=== PATIENT | male | born 1950 | race Caucasian/White ===

== ENCOUNTER 2023-10-07 13:27 | Inpatient (IN) ==
--- NOTE | 2023-10-07 14:13 | Emergency Department Note ---
Impression & Plan Fever, Pancytopenia, Hyponatremia ED Provider Note NAME: DAT WESTBROOK AGE: 73 SEX: M : 1950 ARRIVES VIA: Walk-In INFORMANT: Patient, ED PROVIDER(S): Ascencion Corbin MD CHIEF COMPLAINT: Fatigue, outpatient referral, abnormal lab work, dyspnea on exertion MEDICAL DECISION MAKING: Patient's blood work showed leukopenia anemia and thrombocytopenia. Per review the patient's [facility] records the patient has had approximately 5 point drop in his hemoglobin since May. Patient denies any easy bruising or bleeding. Sodium 127. The patient does have a transaminitis but normal bilirubin. LDH is elevated. Pro-Julian negative. Urinalysis negative for blood or infection patient is Lyme's positive but Lyme IgG not IgM. Babesia and Anaplasma smears are negative. Bio fire negative. Patient's chest x-ray does not show obvious evidence of pneumonia. I did speak with the on-call oncologist Dr. Epstein who stated that he would like the patient to be admitted for further evaluation given the patient's fevers. I did Siuta the on-call hospital service Dr. Hodge and the patient was admitted. Discussion w/ other healthcare providers: Dr. Epstein oncology Dr. Hodge inpatient medicine service Prior /Outside records reviewed: None Differential diagnosis: Infection, dehydration, metabolic abnormality, hypo/hyperglycemia, electrolyte imbalance, anemia, UTI, pneumonia, thyroid dysfunction among others were considered. Diagnostics, as interpreted by me: ECG: Likely sinus rhythm as the patient does appear to have P waves noted. Ventricular rate of 74 with normal QRS and normal axis no ST elevations T wave flattening in V2. Cardiac monitoring: An order was placed for continuous cardiac monitoring. The monitor shows a rate of 75 with regular rhythm. Patient was placed on pulse oximetry Medical decision rules: None Imaging studies: I informally interpreted the patient's chest x-ray does not show obvious pneumonia or pneumothorax with formal report to follow. HPI: Patient presents due to concern for abnormal blood work. Patient reports that he did have blood work completed yesterday which showed lower hemoglobin platelets and LFTs. Patient states that he had insidious symptoms over the last 2 to 3 weeks with associated fever. Last fever noted today at one 3.1 which has improved with Tylenol. Patient has had nonproductive cough. Patient is a former smoker rely smoking 1990. Patient is currently on Keytruda treatments beginning in March every 3 weeks and has received a total of 9 treatments and does receive care with oncology [facility] through Dr. Epstein. Patient denies any chest pains but has been more fatigable with associated shortness of breath. at bedside reports that he did have a CT chest abdomen pelvis completed within the last week that this was reportedly unremarkable. No history of metastases. PAST MEDICAL HISTORY: See Below PAST SURGICAL HISTORY: See Below SOCIAL HISTORY: See Below HOME MEDICATIONS: See Below ALLERGIES: See Below VITALS: See Below PHYSICAL EXAMINATION: GENERAL: NAD, non-toxic. EYE EXAM: Normal conjunctiva. PERRL, no anisocoria and EOM's grossly intact w/o pain. OROPHARYNX: Moist mucus membranes, grossly normal dentition. NECK: Trachea midline, no stridor. Supple, no nuchal rigidity, no adenopathy, non-tender. No signs of meningismus. FROM of the neck with good chin to chest and neck extension. LUNGS: Clear to auscultation. Normal chest wall mechanics. HEART: NSR, no MRG. ABDOMEN: Abdomen soft, non-tender, no masses, no rebound or guarding. BACK: No CVA TTP. SKIN: No rashes and no bruising. UPPER EXTREMITIES: Upper extremities are grossly normal. LOWER EXTREMITIES: Grossly normal, no edema. NEURO EXAM: A&O x3, cranial nerves II-XII grossly intact, normal speech, moves all 4 extremities. Past Med/Surg History Medical History History of Lyme disease SUMMER 2021 Pre-diabetes Acid reflux Atrial flutter DX DECEMBER 2020 Hypothyroid Hyperlipidemia Hypertension Surgical History History of left cataract extraction History of lumbar spinal fusion History of endoscopy History of colonoscopy Family History Father Family history of diabetes mellitus Mother Family history of diabetes mellitus Other Family history of colon cancer in mother Social History Smoking Status: Former smoker Second Hand Exposure: No; Do You Dip or Chew Tobacco: No; Hx Alcohol Use: Yes Alcohol type: beer Hx Substance Use: No Preferred Language: Micronesian Communication Ability: Effective Bench Assembler Required: No Beliefs That Will Affect Care: None Current Living Situation: Spouse Current Living Situation Comment: PETS Feels Safe at Home: Yes Assistive Devices: Glasses Allergies Allergies Allergy/AdvReac Type Severity Reaction Status Date / Time Sulfa (Sulfonamide Allergy Unknown Unknown Unverified 10/07/23 17:12 Antibiotics) Home Meds Home Medications Medication Instructions Recorded Confirmed atorvastatin 80 mg tablet (Lipitor) 80 mg PO HS 01/01/21 10/07/23 levothyroxine 88 mcg tablet 88 mcg PO QAM 01/01/21 10/07/23 (Synthroid) loratadine 10 mg tablet (Claritin) 10 mg PO QAM 01/01/21 10/07/23 apixaban 5 mg tablet (Eliquis) 5 mg PO BID 06/20/22 10/07/23 ipratropium bromide 21 mcg (0.03 2 spray intranasal BID 06/20/22 10/07/23 %) nasal spray metoprolol succinate 25 mg 25 mg PO QAM 06/20/22 10/07/23 tablet,extended release 24 hr dizqbradkjxs-jjrjieyb-qkvpot tablet 1 tab PO QAM 06/20/22 10/07/23 omega-3 fatty acids 1,000 mg PO TID 06/20/22 10/07/23 omeprazole magnesium 20 mg 20 mg PO QAM 06/20/22 10/07/23 tablet,delayed release (Prilosec OTC) psyllium 1 packet PO BID 06/20/22 10/07/23 acetaminophen 500 mg tablet 500 mg PO Q6H PRN PAIN OR FEVER 10/07/23 10/07/23 lisinopril 2.5 mg tablet 2.5 mg PO QPM 10/07/23 10/07/23 melatonin 3 mg tablet 3 mg PO HS PRN Insomnia 10/07/23 10/07/23 metformin 500 mg tablet,extended 1,000 mg PO QPM 10/07/23 10/07/23 release 24 hr Results & Data (ED) Vital Signs Vital Signs - 24 hr 10/07/23 13:41 10/07/23 14:39 10/07/23 14:47 Temperature 36.4 C L Temperature Source Skin Pulse Rate 90 74 Pulse Rate [Apical] 78 Respiratory Rate 18 19 Respiratory Effort / Characteristics Non-Labored Spontaneous Respiratory Depth Normal Blood Pressure 119/70 Blood Pressure [Right Arm] 108/69 Blood Pressure Mean 86 Blood Pressure Mean [Right Arm] 82 Blood Pressure Position [Right Arm] Lying Pulse Oximetry 95 98 Oxygen Delivery Method Room Air Room Air Sepsis Recent Fever Within 48 Hours No Sepsis New/Unexplained Change in Mental Status No Sepsis Action Taken by Nursing No Action Required 10/07/23 16:00 10/07/23 18:00 10/07/23 18:38 Temperature 38.0 C H Temperature Source Oral Pulse Rate 90 Pulse Rate [Apical] 81 93 H Respiratory Rate 22 20 Respiratory Effort / Characteristics Respiratory Depth Blood Pressure Blood Pressure [Right Arm] 128/75 129/73 Blood Pressure Mean Blood Pressure Mean [Right Arm] 92 91 Blood Pressure Position [Right Arm] Pulse Oximetry 96 100 Oxygen Delivery Method Room Air Room Air Sepsis Recent Fever Within 48 Hours Sepsis New/Unexplained Change in Mental Status Sepsis Action Taken by [facility] Medications Current Medication List: was personally reviewed by me Laboratory Data Attestation: I reviewed the patient's lab results. 10/07/23 14:30 10/07/23 14:30 Lab Results 10/07/23 10/07/23 Range/Units 14:30 18:43 WBC 4.13 L (4.8-10.8) K/ul RBC 3.19 L (4.70-6.10) M/uL Hgb 9.0 L (14.0-18.0) g/dl Hct 26.9 L (42.0-52.0) % MCV 84.3 (80.0-100.0) fL MCH 28.2 (25.0-34.0) pg MCHC 33.5 (32.0-36.0) g/dL RDW Std Deviation 45.1 (36.4-46.3) fL RDW Coeff of Keron 14.7 H (11.5-14.5) % Plt Count 44 L (130-400) K/uL MPV 12.8 H (9.4-12.4) fL Reticulocyte % (Auto) 1.72 (0.50-2.00) % Reticulocyte # 0.050 (0.020-0.100) 10^6/uL Absolute Nucleated RBC 0.06 (0.00-0.12) K/uL Nucleated RBC % (auto) 1.5 % Neutrophils % (Manual) 54 % Lymphocytes % (Manual) 10 % Reactive Lymphs % (Man) 30 % Monocytes % (Manual) 6 % Neutrophils # (Manual) 2.23 (1.40-6.50) K/uL Total Absolute Neuts 2.23 (1.4-6.5) K/uL Lymphocytes # (Manual) 0.41 L (1.2-3.4) K/uL Reactive Lymphs # 1.24 K/uL Total Abs Lymphocytes 1.65 (1.2-3.4) K/uL Monocytes # (Manual) 0.25 (0.11-0.59) K/uL Toxic Vacuolation 2+ Polychromasia 1+ Echinocytes 2+ PT 11.8 (9.0-12.0) Seconds INR 1.1 (0.9-1.1) APTT 37 H (21-31) Seconds PTT Ratio 1.3 Sodium 127 L (136-145) mmol/L Potassium 3.8 (3.5-5.1) mmol/L Chloride 97 L (98-107) mmol/L Carbon Dioxide 25 (21-32) mmol/L Anion Gap 5 (3-11) BUN 10 (6-23) mg/dl Creatinine 0.79 (0.6-1.4) mg/dl Est Cr Clr Drug Dosing 93.9 ml/min Est GFR ( Amer) 104.0 ml/min Est GFR (Non-Af Amer) 89.7 ml/min BUN/Creatinine Ratio 12.7 (10-20) Glucose 105 H (70-99(Fasting)) mg/dl Lactate 1.2 (0.4-2.0) mmol/L Calcium 8.8 (8.6-10.3) mg/dl Total Bilirubin 1.0 (0.2-1.0) mg/dl AST 102 H (13-39) U/L ALT 62 H (7-52) U/L Alkaline Phosphatase 116 H (34-104) U/L Lactate Dehydrogenase 758 H (86-244) U/L Total Protein 6.9 (6.0-8.3) gm/dl Albumin 3.2 L (3.4-5.0) gm/dl Globulin 3.7 (2.5-4.0) gm/dl Albumin/Globulin Ratio 0.9 (0.9-2) Procalcitonin 0.25 (0-0.5) ng/ml Adenovirus (PCR) Not Detected (NotDetected) Anaplasma Smear See Comment Babesia Smear See Comment B. pertussis DNA (PCR) Not Detected (NotDetected) B.parapertussis DNA PCR Not Detected (NotDetected) Lyme Disease Screen Positive H (Negative) Lyme Disease IgG Ab Positive H (Negative) Lyme Disease IgM Ab Negative (Negative) C. pneumoniae DNA (PCR) Not Detected (NotDetected) Coronavirus OC43 (PCR) Not Detected (NotDetected) Coronavirus HKU1 (PCR) Not Detected (NotDetected) Coronavirus 229E (PCR) Not Detected (NotDetected) SARS-CoV-2 (PCR) Not Detected (NotDetected) Coronavirus NL63 (PCR) Not Detected (NotDetected) Human Metapneumovir PCR Not Detected (NotDetected) Influenza Type A (PCR) Not Detected (NotDetected) Influenza Type B (PCR) Not Detected (NotDetected) M. pneumoniae (PCR) Not Detected (NotDetected) Parainfluenza 1 (PCR) Not Detected (NotDetected) Parainfluenza 2 (PCR) Not Detected (NotDetected) Parainfluenza 3 (PCR) Not Detected (NotDetected) Parainfluenza 4 (PCR) Not Detected (NotDetected) RSV (PCR) Not Detected (NotDetected) Entero/Rhino (PCR) Not Detected (NotDetected) Administered Medications Cefepime HCl 2,000 mg/ Syringe 20 mls @ 5 mls/min IV Q8H [facility]; Protocol Stop: 10/09/23 18:59 Last Admin: 10/07/23 19:56 Dose: 5 mls/min Documented By: CELSO Sodium Chloride (Nss) 1,000 mls @ 65 mls/hr IV .[id number] [facility] Stop: 10/08/23 10:23 Last Admin: 10/07/23 19:59 Dose: 65 mls/hr Documented By: CELSO Vancomycin HCl 2,250 mg/ (Sodium Chloride) 545 mls @ 200 mls/hr IV TODAY@1930 [facility] Stop: 10/07/23 22:14 Last Admin: 10/07/23 20:03 Dose: 200 mls/hr Documented By: CELSO Discontinued Medications Sodium Chloride (Nss) 500 mls @ 999 mls/hr IV .Q31M [facility] Stop: 10/07/23 15:00 Last Infusion: 10/07/23 15:34 Dose: Infused Documented By: Admin: 10/07/23 14:38 Dose: 999 mls/hr Documented By: CC Imaging Data Radiologist's Impression: Chest X-Ray 10/07/23 14:38 XR chest 1V portable HISTORY: cough, fever COMPARISON: Chest 01/01/2021. FINDINGS: No pneumothorax. No pleural effusions. Low lung volumes with mild elevation the right hemidiaphragm. This remains unchanged. There are few bibasilar linear densities suggestive of subsegmental atelectasis are scarring. This has progressed on the right. The heart remains mildly enlarged. No new focal lung consolidations to suggest a pneumonia. No evidence for pulmonary edema. A right jugular Port-A-Cath terminates at the distal SVC. IMPRESSION: 1. Low lung volumes with bibasilar linear densities. This favors subsegmental atelectasis. 2. Mild cardiomegaly. ACT 112: Negative or not required by law. Electronically signed by: Danilo Garcia M.D. 10/07/2023 4:[address] 10/07/23 18:34 Exam(s): CT CHEST Without Contrast EXAM: CT Chest Without Intravenous Contrast CLINICAL HISTORY: Rule out infection, pneumonia, cavitary pathology. TECHNIQUE: Axial computed tomography images of the chest without intravenous contrast. CTDI is 17.77 mGy and DLP is 658.57 mGy-cm. Automated exposure control was utilized for the study. A dose lowering technique was utilized adhering to the principles of ALARA. COMPARISON: Chest radiograph 10/07/2023 FINDINGS: Lungs: There is mild atelectasis without consolidation. No mass. Pleural space: Unremarkable. No pneumothorax. No significant effusion. Heart: Unremarkable. No cardiomegaly. No significant pericardial effusion. No significant coronary artery calcifications. Bones/joints: There are degenerative changes of the spine. No acute fracture. No dislocation. Soft tissues: Unremarkable. Vasculature: Mild atherosclerosis. No thoracic aortic aneurysm. Lymph nodes: Unremarkable. No enlarged lymph nodes. Upper abdomen: There is elevation of the right hemidiaphragm. IMPRESSION: There is mild atelectasis without consolidation. No cavitary lesion. Electronically signed by: Yessenia Lea MD 10/07/23 19:44 PM Discharge Plan Visit Data Chief Complaint: Recheck/Abnormal Lab/Rx Stated Complaint: ABN LABS, REF BY DOC ED Provider: Ascencion Corbin Discharge Problem: Fever, Pancytopenia, Hyponatremia Patient Disposition: Admitted As Inpatient Discharge Instructions Interventions: ED Discharge Assessment Last Done: 10/07/23 20:45 Discharge Problem: Fever Qualifiers: Fever type: due to other condition Qualified Code(s): R50.81 - Fever presenting with conditions classified elsewhere
[2023-10-07] MEDS: SODIUM CHLORIDE 0.9% 500 ML IV STA (14:38)
[2023-10-07 15:00] LABS: Appearance Urine Clear (Clear); Bilirubin Urine Negative (Negative); Blood Urine Negative (Negative); Color Urine Yellow; Glucose Urine UA Negative (Negative); Ketones Urine Negative (Negative); Leukocyte Esterase Urine Negative (Negative); Nitrite Urine Negative (Negative); Protein Urine Negative (Negative); Specific Gravity Urine 1.004 (1.000-1.030); Urobilinogen Urine Negative (Negative); pH Urine 6.5 (4.5-7.5)
[2023-10-07 15:11] LABS: Albumin Globulin Ratio 0.9 (0.9-2); Albumin Level 3.2 gm/dl (3.4-5.0); BUN Creatinine Ratio 12.7 (10-20); Calcium 8.8 mg/dl (8.6-10.3); Creatinine Clr Calc Pharmacy 93.9 ml/min; Est GFR (Non-African American) 89.7 ml/min; Globulin 3.7 gm/dl (2.5-4.0); Potassium 3.8 mmol/L (3.5-5.1); Total Protein 6.9 gm/dl (6.0-8.3)
[2023-10-07 15:28] LABS: INR 1.1 (0.9-1.1); Partial Thromboplastin Ratio 1.3; Partial Thromboplastin Time 37 Seconds (21-31); Prothrombin Time 11.8 Seconds (9.0-12.0)
[2023-10-07 15:46] LABS: Hematocrit (blood only) 26.9 % (42.0-52.0); Mean Corpuscular Hemoglobin 28.2 pg (25.0-34.0); Mean Corpuscular Hgb Conc 33.5 g/dL (32.0-36.0); Mean Corpuscular Volume 84.3 fL (80.0-100.0); Mean Platelet Volume 12.8 fL (9.4-12.4); Nucleated RBC # (auto) 0.06 K/uL (0.00-0.12); Nucleated RBC % (auto) 1.5 %; Platelet Count 44 K/uL (130-400); RDW Coefficient of Variation 14.7 % (11.5-14.5); RDW Standard Deviation 45.1 fL (36.4-46.3); Red Blood Count 3.19 M/uL (4.70-6.10); Reticulocyte % 1.72 % (0.50-2.00); White Blood Count 4.13 K/ul (4.8-10.8)
[2023-10-07 15:59] LABS: ALC (manual) 1.65 K/uL (1.2-3.4); ANC (manual) 2.23 K/uL (1.4-6.5); Echinocytes 2+; Lymphocytes # (manual) 0.41 K/uL (1.2-3.4); Lymphocytes % (manual) 10 %; Monocytes # (manual) 0.25 K/uL (0.11-0.59); Monocytes % (manual) 6 %; Neutrophils # (manual) 2.23 K/uL (1.40-6.50); Neutrophils % (manual) 54 %; Polychromasia 1+; Reactive Lymphocytes # (manual) 1.24 K/uL; Reactive Lymphocytes % (manual) 30 %; Toxic Vacuolation 2+
--- NOTE | 2023-10-07 16:14 | XRay Report ---
XR chest 1V portable HISTORY: cough, fever COMPARISON: Chest 01/01/2021. FINDINGS: No pneumothorax. No pleural effusions. Low lung volumes with mild elevation the right hemid iaphragm. This remains unchanged. There are few bibasilar linear densities suggestive of subsegmental atelectasis are scarring. This has progressed on the right. The heart remains mildly enlarged. No ne w focal lung consolidations to suggest a pneumonia. No evidence for pulmonary edema. A right jugular Port-A-Cath terminates at the distal SVC. IMPRESSION: 1. Low lung volumes with bibasilar linear densities. This favors subsegmental atelectasis. 2. Mild cardiomegaly. ACT 112: Negative or not required by law. Electronically signed by: Danilo Garcia M.D. 10/07/2023 4:13 PM
[2023-10-07 16:19] LABS: Lyme Screen Rflx Confirmation Positive (Negative)
--- NOTE | 2023-10-07 18:22 | History & Physical Report ---
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 Appetite and fluid in take at his baseline. History of Lyme disease in February 2022 per family, patient was treated. Admitting tickborne serology: Lyme IgG positive, Babesia and Anaplasma smear negative -follow DNA PCR At presentation: WBC 4.13, lactate WNL, procalcitonin negative, CXR with no acute finding. Outpatient blood culture drawn on 10/01 with no growth to date, follow Blood culture sent 10/06, follow. Send respiratory BioFire, echo, CT chest Empiric antibiotic with cefepime and vancomycin. ID consult, await recommendation. ? fever 2/2 SEs of keytruda, but fever has been more intense (per patient) farther away from the last keytruda dose (September 14). Pancytopenia: All 3 cell lines has been decreasing, Per OP chart review --> hemoglobin around 9-10 recently, platelets in 40s to 70s, and WBC in 3.5-5 K. Patient denies any blood in the stool or hematemesis or hemoptysis. MCV WNL, reticulocyte count WNL, bilirubin WNL. Get FOBT, haptoglobin, PBS, iron profile, b12, folate, tsh. Follow-up with hematology upon discharge. Transaminitis: Admitting AST 102, ALT 62, ALP 116, bilirubin WNL. Patient with no abdominal pain. 10/06/2023 LFTAST 146, ALT 81, ALP 141, bilirubin 1.1. LFT trending down, trend daily and monitor. Likely secondary to Keytruda. CMP in AM. Get US liver. Mild hyponatremia: Patient has history of chronic hyponatremia with sodium level ranging from 1 27-1 36 as an outpatient. Patient seems to have okay appetite but drinks a lot of water. Limit fluid intake to 2 L/day, increase protein content in diet, monitor labs in a.m. Consider nephrology if with worsening. Gentle ivf w/ ns x 1 bag. LUTS: History of BPH, patient with difficulty initiating micturition. Patient agreeable to starting tamsulosin. Follow-up. 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 Follow-up with oncology on discharge. Other chronic medical conditions: Continue with/resume home meds as and when able. T2DM: On oral meds, sliding scale insulin while in hospital. Hypothyroidism: Continue home Synthroid HTN: Continue home lisinopril and metoprolol Paroxysmal a flutter: Continue home Eliquis BPH: Not on home medication, started tamsulosin in the hospital to help with symptoms. 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 Patient reports dry cough, denies sore throat, reports cough being on and off for a long time. Patient does report acutely shortness of breath with exertion and increased weakness. Patient reports some headache and dizziness. Patient denies any acute changes in his bowel habits, reports good appetite, reports drinking a lot of water for many years, denies any open wound or new skin rashes. Patient reports quitting smoking 1990, occasionally used to drink beer which he has stopped drinking since September 19, denies recreational drug use. DNR/DNI as per my discussion with the patient and his family at bedside. Medications were reviewed in detail with the patient and his family. Plan of care was discussed in detail with the patient and his family at bedside. Patient's Mari and daughter Angelica were present at bedside. Allergies Allergy/AdvReac Type Severity Reaction Status Date / Time Sulfa (Sulfonamide Allergy Unknown Unknown Unverified 10/07/23 17:12 Antibiotics) Home Medications Medication Instructions Recorded Confirmed Type atorvastatin 80 mg tablet (Lipitor) 80 mg PO HS 01/01/21 10/07/23 History levothyroxine 88 mcg tablet 88 mcg PO QAM 01/01/21 10/07/23 History (Synthroid) loratadine 10 mg tablet (Claritin) 10 mg PO QAM 01/01/21 10/07/23 History apixaban 5 mg tablet (Eliquis) 5 mg PO BID 06/20/22 10/07/23 History ipratropium bromide 21 mcg (0.03 2 spray intranasal BID 06/20/22 10/07/23 History %) nasal spray metoprolol succinate 25 mg 25 mg PO QAM 06/20/22 10/07/23 History tablet,extended release 24 hr iktvkbirjoct-uhkiwvaq-osoezl tablet 1 tab PO QAM 06/20/22 10/07/23 History omega-3 fatty acids 1,000 mg PO TID 06/20/22 10/07/23 History omeprazole magnesium 20 mg 20 mg PO QAM 06/20/22 10/07/23 History tablet,delayed release (Prilosec OTC) psyllium 1 packet PO BID 06/20/22 10/07/23 History acetaminophen 500 mg tablet 500 mg PO Q6H PRN PAIN OR FEVER 10/07/23 10/07/23 History lisinopril 2.5 mg tablet 2.5 mg PO QPM 10/07/23 10/07/23 History melatonin 3 mg tablet 3 mg PO HS PRN Insomnia 10/07/23 10/07/23 History metformin 500 mg tablet,extended 1,000 mg PO QPM 10/07/23 10/07/23 History release 24 hr Past Med/Surg History Medical History Acid reflux Atrial flutter DX DECEMBER 2020 History of Lyme disease SUMMER 2021 Hyperlipidemia Hypertension Hypothyroid Pre-diabetes Surgical History History of colonoscopy History of endoscopy History of left cataract extraction History of lumbar spinal fusion Family History Father Family history of diabetes mellitus Mother Family history of diabetes mellitus Other Family history of colon cancer in mother Social History Smoking Status: Former smoker Second Hand Exposure: No; Do You Dip or Chew Tobacco: No; Hx Alcohol Use: Yes Alcohol type: beer Hx Substance Use: No Preferred Language: Honduran Communication Ability: Effective Academic Administrator Required: No Beliefs That Will Affect Care: None Current Living Situation: Spouse Current Living Situation Comment: PETS Feels Safe at Home: Yes Assistive Devices: Glasses Review of Systems Review of Systems: Negative otherwise mentioned in HPI. Physical Exam Physical Exam: GENERAL: Alert and oriented x3. NAD, on RA. Appears ill/frail/weak. Feels warm. HEENT: No pallor, no icterus. Pupils equal, round and reactive to light. Oral mucosa moist. NECK: No JVD, no neck masses. HEART: S1 and S2 heard. Regular rate and rhythm. No murmur, no gallop. RESPIRATORY SYSTEM: Normal AP diameter. No accessory muscle use. No wheezing, no crackles. ABDOMEN: Soft, bowel sounds present, nontender, no distention. CENTRAL NERVOUS SYSTEM: No facial droop. Speech is clear. Obeys simple commands. Moves extremities. EXTREMITIES: No edema, no erythema seen. Back examination: No CVA angle tenderness, no vertebral line tenderness. Results & Data Results & Data Vital Signs (Past 12 Hours) Vital Signs Temp Pulse Pulse Resp BP BP Pulse Ox 10/07/23 18:00 38.0 C H 93 H 20 129/73 100 10/07/23 16:00 81 22 128/75 96 10/07/23 14:47 78 19 108/69 98 10/07/23 14:39 74 10/07/23 13:41 36.4 C L 90 18 119/70 95 O2 Del Method 10/07/23 18:00 Room Air 10/07/23 16:00 Room Air 10/07/23 14:47 Room Air 10/07/23 14:39 10/07/23 13:41 Room Air
[2023-10-07] MEDS ORDERED: VANCOMYCIN CONSULT ACTIVE PRN (18:35)
[2023-10-07] MEDS ORDERED: ALUMINUM/MAGNESIUM SUSP 30 ML UDC PO PRN (18:47)
[2023-10-07] MEDS ORDERED: GLUCOSE 10 TAB/TUBE PO PRN (18:47)
[2023-10-07] MEDS ORDERED: GLUCOSE 40% GEL 15 GM TUBE PO PRN (18:47)
[2023-10-07] MEDS ORDERED: CARBOHYDRATES FOR HYPOGLYCEMIA PO PRN (18:47)
[2023-10-07] MEDS ORDERED: ONDANSETRON INJ 2 MG/ML 2 ML VIAL IV PRN (18:47)
[2023-10-07] MEDS ORDERED: DEXTROSE 50% 50 ML SYRINGE IV PRN (18:47)
[2023-10-07] MEDS ORDERED: MAGNESIUM HYDROXIDE SUSP 30 ML UDC PO PRN (18:47)
[2023-10-07] MEDS ORDERED: GLUCAGON FOR INJ 1 MG VIAL SQ PRN (18:47)
--- NOTE | 2023-10-07 19:12 | Pharmacy Report ---
Pharmacy PK ABX Note - Date of Service October 07, 2023 - Assessment and Plan Assessment 73 year old M receiving IV Vancomycin + Cefepime for empiric treatment of febrile illness possibly due to SEs of Keytruda, but fever has been more intense (per patient) and last dose was September 14. History of Lyme disease in February 2022 per family, patient was treated. Admitting tickborne serology: Lyme IgG positive, Babesia and Anaplasma smear negative -follow DNA PCR WBC 4.13, lactate WNL, procalcitonin negative, CXR with no acute finding. Outpatient blood culture drawn on 10/01 with no growth to date, blood cultures 10/06 pending. ID consult. Plan Vancomycin * Loading dose: 2250 mg IV x 1 * Maintenance dose: 1250 mg IV every 12 hours * Regimen is predicted to achieve target AUC/NATASHA of 400-600 mg/L.hr * Will draw level if therapy extended beyond 48 hours Cefepime 2g IV Q8H Pharmacy will continue to follow and will adjust dose/frequency as necessary. Thank you. Pharmacy has transitioned to AUC monitoring for vancomycin. AUC/NATASHA is the preferred PK/PD target and is associated with decreased risk of nephrotoxicity compared to traditional trough targets.
--- NOTE | 2023-10-07 19:39 | Electrocardiogram Report ---
Test Reason : Blood Pressure : / mmHG Vent. Rate : 074 BPM Atrial Rate : 000 BPM P-R Int : 000 ms QRS Dur : 078 ms QT Int : 376 ms P-R-T Axes : 000 019 079 degrees QTc Int : 417 ms Sinus rhythm Low voltage QRS Abnormal ECG When compared with ECG of 01-JAN-2021 09:13, QRS axis Shifted right Nonspecific T wave abnormality now evident in Lateral leads Confirmed by Milan Sawant ([id number]) on 10/07/2023 7:39:00 PM Referred By: Confirmed By:Noel Sawant
--- NOTE | 2023-10-07 19:46 | CT Scan Report ---
Exam(s): CT CHEST Without Contrast EXAM: CT Chest Without Intravenous Contrast CLINICAL HISTORY: Rule out infection, pneumonia, cavitary pathology. TECHNIQUE: Axial computed tomography images of the chest without intravenous contrast. CTDI is 17.77 mGy and DLP is 658.57 mGy-cm. Automated exposure control was utilized for the study. A dose lowering technique was utilized adhering to the principles of ALARA. COMPARISON: Chest radiograph 10/07/2023 FINDINGS: Lungs: There is mild atelectasis without consolidation. No mass. Pleural space: Unremarkable. No pneumothorax. No significant effusion. Heart: Unremarkable. No cardiomegaly. No significant pericardial effusion. No significant coronary artery calcifications. Bones/joints: There are degenerative changes of the spine. No acute fracture. No dislocation. Soft tissues: Unremarkable. Vasculature: Mild atherosclerosis. No thoracic aortic aneurysm. Lymph nodes: Unremarkable. No enlarged lymph nodes. Upper abdomen: There is elevation of the right hemidiaphragm. IMPRESSION: There is mild atelectasis without consolidation. No cavitary lesion. Electronically signed by: Yessenia Lea MD 10/07/23 19:44 PM
[2023-10-07] MEDS: CEFEPIME 2,000 MG in SYRINGE 0 ML IV SCH (19:56)
[2023-10-07] MEDS: SODIUM CHLORIDE 0.9% 1,000 ML IV SCH (19:59)
[2023-10-07 20:00] LABS: Adenovirus PCR Not Detected (NotDetected); Bordetella parapertussis PCR Not Detected (NotDetected); Bordetella pertussis PCR Not Detected (NotDetected); Chlamydia pneumoniae PCR Not Detected (NotDetected); Coronavirus 229E PCR Not Detected (NotDetected); Coronavirus CoV-2 (COVID19)PCR Not Detected (NotDetected); Coronavirus HKU1 PCR Not Detected (NotDetected); Coronavirus NL63 PCR Not Detected (NotDetected); Coronavirus OC43PCR Not Detected (NotDetected); Human Metapneumovirus PCR Not Detected (NotDetected); Influenza A PCR Not Detected (NotDetected); Influenza B PCR Not Detected (NotDetected); Mycoplasma pneumoniae PCR Not Detected (NotDetected); Parainfluenza Virus 1 PCR Not Detected (NotDetected); Parainfluenza Virus 2 PCR Not Detected (NotDetected); Parainfluenza Virus 3 PCR Not Detected (NotDetected); Parainfluenza Virus 4 PCR Not Detected (NotDetected); Respiratory Syncytial VirusPCR Not Detected (NotDetected); Rhinovirus/Enterovirus PCR Not Detected (NotDetected)
[2023-10-07] MEDS: VANCOMYCIN HCL 2,250 MG in SODIUM CHLORIDE 0.9% 500 ML IV SCH (20:03)
[2023-10-07] MEDS: INSULIN ASPART PER UNIT CHARGE SC SCH (22:27)
[2023-10-07] MEDS: PSYLLIUM or GUAR GUM FIBER 4GM PACKET PO SCH (22:27)
[2023-10-07] MEDS: LANTUS PER UNIT CHARGE SQ SCH (22:27)
[2023-10-07] MEDS: IPRATROPIUM BROMIDE NASAL SPRAY 0.06% 15ML NAE SCH (22:37)
[2023-10-07] MEDS: ACETAMINOPHEN 325 MG TAB PO PRN (22:40)
[2023-10-07] MEDS: ATORVASTATIN 40 MG TAB PO SCH (22:40)
[2023-10-07] MEDS: lisinopril 2.5 MG TAB PO SCH (22:41)
[2023-10-07] MEDS: OMEGA-3 (PURIFIED FISH OIL) 1 GM CAP PO SCH (22:41)
[2023-10-07] MEDS: APIXABAN 5 MG TABLET PO SCH (22:42)
[2023-10-07] MEDS: MELATONIN 3 MG TAB PO PRN (22:42)
--- OUTSIDE RECORDS SUMMARY | 2023-10-08 03:52 | External Medical Summary ---
Author Name Unknown Address Unknown Organization [id number]:[facility] [address] [place] [address] Laboratory Report Ordering Provider Test Date Status CHRIS MCCRAY 10/06/2023 09:09:16 Final Observation Date Value Abnormality Reference (Units ) Status T4, Free 10/06/2023 09:09:16 1.3 0.9-1.7 (n g/dL) Final Performing Location [facility] [address] [place] [address]
--- OUTSIDE RECORDS SUMMARY | 2023-10-08 03:52 | External Medical Summary ---
Author Name Unknown Address Unknown Organization [id number]:[facility] [place] [address] Laboratory Report Ordering Provider Test Date Status CHRIS MCCRAY 10/06/2023 09:09:16 Final Observation Date Value Abnormality Reference (Units ) Status WBC, Total 10/06/2023 09:09:16 4.42 4.00-10.8 0 (K/uL) Final RBC 10/06/2023 09:09:16 3.60 4.50-5.25 (M/uL) Final Hemoglobin 10/06/2023 09:09:16 10.2 Below low normal 14 .0-16.8 (g/dL) Final HCT 10/06/2023 09:09:16 31.2 Below low normal 40. 0-48.4 (%) Final MCV 10/06/2023 09:09:16 86.7 82.0-99.5 (fL) Final MCH 10/06/2023 09:09:16 28.3 27.0-34.0 (pg) Final MCHC 10/06/2023 09:09:16 32.7 32.0-36.0 (g/dL) Final RDW 10/06/2023 09:09:16 15.1 11.5-15.5 (%) Final Platelets 10/06/2023 09:09:16 76 Below low normal 140 -400 (K/uL) Final MPV 10/06/2023 09:09:16 11.2 6.6-11.1 ( fL) Final Performing Location [facility] [place] [address]
--- OUTSIDE RECORDS SUMMARY | 2023-10-08 03:52 | External Medical Summary ---
Author Name Unknown Address Unknown Organization K09:[facility] [place] [address] Laboratory Report Ordering Provider Test Date Status CHRIS MCCRAY 10/06/2023 09:09:16 Final Observation Date Value Abnormality Reference (Units ) Status SYNC LEUKOCYTES IN BLOOD BY AUTOMATED COUNT 10/06/2023 09:09:16 4.42 4.00-10.80 (K/uL) Final Segs 10/06/2023 09:09:16 58.0 40.0-75.0 (%) Final Lymphs % 10/06/2023 09:09:16 26.9 18.0-42.0 (%) Final Monos 10/06/2023 09:09:16 14.9 Above high normal 1.0-11.0 (%) Final Eosinophils 10/06/2023 09:09:16 0.0 0.0-6.0 (%) Final Basos 10/06/2023 09:09:16 0.2 0.0-2.0 (%) Final Absolute Segs 10/06/2023 09:09:16 2.56 1.80-7.70 (K/uL) Final Lymphs, absolute 10/06/2023 09:09:16 1.19 1.00-4.80 (K/ul) Final Monos, Abs 10/06/2023 09:09:16 0.66 0.00-1.10 (K/uL) Final Eos, Abs 10/06/2023 09:09:16 0.00 0.00-0.70 (K/uL) Final Basos, Abs 10/06/2023 09:09:16 0.01 0.00-0.20 (K/uL) Final Performing Location [facility] [place] [address]
--- OUTSIDE RECORDS SUMMARY | 2023-10-08 03:52 | External Medical Summary | Summary of Care ---
Author Name Unknown Organization [facility] Address [address] [place] [address] Phone [phone] Care Team Providers Care Creative Writer Name Role Phone Jocelyn Bro DO Primary Care Provider Reason for Visit * Reason Comments NEW PATIENT Encounter Details Date Type Department Care Team (Late st Contact Info) Description 10/02/2023 10:40 AM EDT Office Visit Family Practice [address] [facility] [address] [place] [address] Jocelyn Bro DO [address] [place] [address] Type 2 diabetes mellitus with hemoglobin A1c goal of less than 8.0% ([facility])*; Malignant melanoma of face ([facility]); Paroxysmal atrial flutter ([facility]); Fever, unspecified fever cause; Dysuria; Risk and functional assessment Allergies Active Allergy Reactions Criticality Noted Date Comments Sulfamethoxazole-Trimethop rim Fever,Other (Please comment) 09/13/2019 documented as of this encounter (statuses as of 10/06/2023) Medications Medication Sig Dispensed Refills Start Date End Date Status FISH OIL 1000 MG PO CAPS Take 1 Capsule by mouth 3 times a day. 0 0 2006 Active CENTRUM SILVER PO TABS Take 1 Tablet by mouth in the morning. 0 Active Loratadine 10 MG Oral CapsuleIndication s:in am Take 1 Capsule by mouth in the morning. 0 Active diphenhydrAMINE HCl 25 MG Oral Capsule Take 1 Capsule by mouth at bedtime. 0 Active Metamucil [facility] Fiber 58.12 % Oral Packet (Psyllium) Take 1 Packet by mouth in the morning and 1 Packet before bedtime. 0 Active Acetaminophen 500 MG Oral TabletIndications :as needed Take 325 mg by mouth every 6 hours as needed for Pain, Moderate or Pain, Mild. 0 Active Lisinopril 2.5 MG Oral Tablet (Prinivil)Indicat ions:HTN, goal below 140/90 Take 1 Tablet by mouth in the morning. 30 Tablet 11 06/25/2023 Active Additional Information Patient taking differently:2.5 mg OralHS, Reported on 09/14/2023 Apixaban 5 MG Oral Tablet (Eliquis)Indicati ons:Typical atrial flutter (HCC),HTN, goal below 140/90 Take 1 Tablet by mouth in the morning and 1 Tablet before bedtime. 180 Tablet 06/25/2023 Active Metoprolol Succinate ER 25 MG Oral Tablet Extended Release 24 Hour (toPROL XL)Indications:Ty pical atrial flutter (HCC),HTN, goal below 140/90 Take 1 Tablet by mouth in the morning. 90 Tablet 06/25/2023 Active Atorvastatin Calcium 80 MG Oral Tablet (Lipitor) Take 1 Tablet by mouth at bedtime. 100 Tablet 06/25/2023 Active metFORMIN HCl ER 500 MG Oral Tablet Extended Release 24 Hour (Glucophage XR) Take 2 Tablets by mouth at bedtime. 200 Tablet 06/25/2023 Active Omeprazole 20 MG Oral Capsule Delayed Release (PriLOSEC) Take 1 Capsule by mouth in the morning. 100 Capsule 06/25/2023 Active Levothyroxine Sodium 88 MCG Oral Tablet (Levoxyl) Take 1 Tablet by mouth daily first thing in the morning. (at least 30 min prior to breakfast or other meds) 100 Tablet 06/25/2023 Active LORazepam 0.5 MG Oral Tablet (Ativan) Take 1 Tablet by mouth every 6 hours as needed for Anxiety. 30 Tablet 0 08/19/2023 Active Ipratropium [place] 0.03 % Nasal Solution (Atrovent) Administer 2 Sprays into nostril in the morning and 2 Sprays before bedtime. 30 mL 3 09/16/2023 Active Additional Information Patient taking differently:2 SprayEach NostrilBID (.AM/PM), Reported on 10/02/2023 Systane Ultra 0.4-0.3 % Ophthalmic Solution (Artificial Tears) Instill 1 Drop into both eyes as needed for Dry eyes. 0 Active METFORMIN HCL ER ([facility]) 500 MG PO [id number] etabolon Quantose IR Research Study*[id number] Take as directed by study staff 400 Tab 0 01/20/2014 4 Discontinue d(Refill) Terbinafine HCl 1 % External Cream (LamISIL AT ATHLETE'S FOOT)Indications: Tinea pedis, unspecified laterality Apply to the affected area of the feet twice daily for 14-28 days. 42 g 5 06/29/2023 4 Discontinue d(Medicatio n/Dose Changed) documented as of this encounter (statuses as of 10/06/2023) Active Problems Problem Noted Date Diagnosed Date Hypothyroidism 09/14/2023 Paroxysmal atrial flutter 09/14/2023 Malignant melanoma of face 03/04/2023 Aortic root enlargement 03/11/2022 Typical atrial flutter 03/11/2022 Diabetes mellitus with nephropathy 09/17/2020 Type 2 diabetes mellitus wit h hemoglobin A1c goal of less than 8.0% 03/19/2020 History of positive PPD 03/19/2020 BPH with obstruction/lower urinary tract symptom s 01/09/2014 Hyperhidrosis of feet 12/31/2012 Dyslipidemia 07/09/2011 HTN, goal below 130/80 07/09/2011 Open-angle glaucoma 03/10/2007 Osteoarthrosis 08/03/2002 Spinal stenosis of lumbar re gion without neurogenic claudication 02/21/2002 Hearing loss 02/11/2001 H/O asbestos exposure documented as of this encounter (statuses as of 10/06/2023) Resolved Problems Problem Noted Date Diagnosed Date Resolved Date Family history of malignant neoplasm of prostate 03/11/2018 08/31/2019 Impaired fasting glucose 04/11/201404/[address] [facility] Study*[id number] 01/20/2014 04/10/2014 Overview: METABOLON QUANTOSE IR STUDY. PROJECT: #[id number], LOCAL AREA NETWORK SYSTEMS ADMINSTRATOR: Tarun Nieto MD/ Dejuan Magdaleno MD. SUMMARY: The Use of a Novel Insulin Resistance Test as a Monitoring Indicator of Glycemic Control in Prediabetics and Diabetics treated with metformin combined with lifestyle intervention. CONTACTS: During normal business hours, contact Lily Burgos RN, BSN at ; after hours Agricultural Economics Teacher via the [facility] hospital separator operator shellfish meats Impotence of organic origin 01/09/2014 08/31/2019 Epididymitis 01/09/2014 03/09/2017 Elevated prostate specific antigen (PSA) 01/09/2014 01/09/2014 Dry eye syndrome 12/31/2012 08/31/2019 Low testosterone 12/31/2012 08/31/2019 Family history of GI malignancy 07/09/2012 08/31/2019 Other specified hypothyroidism 08/19/2006 08/31/2019 ADVANCE DIRECTIVE INFORMATION 2006 08/31/2019 Overview: Information given to patient. DISC DIS [id number] - bulge L3-4, L4-5 02/21/2002 08/31/2019 FAM HX-DIABETES MELLITUS - Dad 01/31/1999 08/31/2019 Mixed dyslipidemia 02/01/1998 9 Overview: Per Lipid Taxonomy. Idiopathic urticaria 020 documented as of this encounter (statuses as of 10/06/2023) Immunizations Name Administration Dates Next Due COVID-19 mRNA, LNP-s, No Pre serve, 2-Dose Series (Moderna) 04/18/2021,08/23/2020,07/26/2020 COVID-19, MRNA-LNP, 23-24, P F, 50 MCG/0.5 mL, 12 YRS AND ABOVE, IM (MODERNA-Spikevax) 04/30/2023 COVID-19, mRNA, LNP-s, PF, B ooster, 100mcg/0.5mg (Moderna) 11/11/2021 Covid-19, Mrna, Lnp-s, Pf, B ivalent, 50 Mcg, IM, 12 yrs and above (Moderna) 03/25/2022 Pneumococcal Conjugate Vacc, 13 Valent (Prevnar) 02/26/2016 Pneumococcal Polysaccharide PPV23 (Pneumovax) 09/05/2016 RSV Vac., Recomb, Adjuvant, PF,0.5 Ml (Arexvy) 05/19/2023 Seasonal Influenza Virus Vac cine, Unspecified Formulation 05/06/2023,03/18/2021,03/27/2020,03/14,03/11/2018,03/09/2017,02/26/2016 ,03/21/2014,03/31/2013,05/05/2012,03/22,07/03/2010,06/04/2009, 8 Seasonal Influenza, PF, 6 M & above, IM , (FluLaval or Fluzone) 03/11/2018 Seasonal Influenza, Quadriva lent Hd (Fluzone Hd) 04/08/2022 Seasonal Influenza, Quadriva lent Hd, 65+ Yrs 03/27/2020 Seasonal Influenza, Quadriva lent, No Preserve, IM 03/09/2017,02/26/2016 Seasonal Influenza, Split, I IV3, With Preserve, Inj 02/23/2015,03/21/2014,03/31/2013,05/05,04/03/2011,07/03/2010,06/04/2009 ,05/19/2008 Seasonal Influenza, Trivalen t, Adjuvanted, 65+ yrs 03/14/2019 TDAP (age 11 and older)(Adacel) 06/12/2020 Varicella Zoster Vaccine (Adult) 08/18/2014 Zoster Vaccine Recombinant (Shingrix) 07/07/2019 ,03/14/2019 documented as of this encounter Social History Tobacco Use Types Packs/Day Years Used Date Smoking Tobacco: Former Cigarettes 1.5 21 0 10/04/1969 - 10/04/1990 Smokeless Tobacco: Never Alcohol Use Standard Drinks/Week Comments Not Currently 28 (1 standard drink = 0.6 oz pu re alcohol) 6 cans beer a night. PHQ-2 Answer Date Recorded PHQ Adult Total Score 0 03/11/2023 Hunger Vital Sign Answer Date Recorded Within the past 12 months, y ou worried that your food would run out before you got the money to buy more. Never true 03/12/20 23 Within the past 12 months, t he food you bought just didn't last and you didn't have money to get more. Never true 03/12/2023 Sex and Gender Information Value Date Recorded Sex Assigned at Male 09/13/2019 9:08 AM EDT Gender Identity Male 09/13/2019 9:08 AM EDT Sexual Orientation Straight 09/13/2019 9: 08 AM EDT Job Start Date Occupation Industry Not on file Not on file Not on file documented as of this encounter Last Filed Vital Signs Vital Sign Reading Time Taken Comments Blood Pressure 112/60 10/02/2023 10:21 AM EDT Pulse 81 10/02/2023 10:21 AM EDT Temperature 36.4 C (97.6 F) 10/02/2023 10:21 AM E DT Respiratory Rate 14 10/02/2023 10:21 AM EDT Oxygen Saturation 95% 10/02/2023 10:21 AM EDT Inhaled Oxygen Concentration - - Weight 90.8 kg (200 lb 3.2 oz) 10/02/2023 10:21 AM EDT Height 176.8 cm (5' 9.6") 10/02/2023 10:21 AM ED T Body Mass Index 29.06 10/02/2023 10:21 AM EDT documented in this encounter Patient Instructions * Patient Instructions* Avelina Morrow [facility] - 10/02/2023 10:51 AM EDT Consider taking melatonin 1-3 mg daily at bedtime in replacement of benadryl due to high risk for falls and confusion Patient Instructions - Fall Prevention (This education is for all patients over 65 regardless of symptoms) Remember to take your current medications as prescribed. In order to prevent falls, you are encouraged to: Exercise Utilize assistive/adaptive devices Avoid multifocal lenses when walking Avoid hazards in home Maintain a regular toileting schedule Any questions please contact our office. Preventing Falls in the Home (This education is for all patients over 65 regardless of symptoms) As you get older, falls are more likely. Thats because your reaction time slows. Your muscles and joints may also get stiffer, making them less flexible. Illness, medications, and vision changes can also affect your balance. A fall could leave you unable to live on your own. To make your home safer, follow these tips: Floors Put nonskid pads under area rugs Remove throw rugs Replace worn floor coverings Tack carpets firmly to each step on carpeted stairs. Put nonskid strips on the edges of uncarpeted stairs Keep floors and stairs free of clutter and cords Arrange furniture so there are clear pathways Clean up any spills right away Bathrooms Install grab bars in the tub or shower Apply nonskid strips or put a nonskid rubber mat in the tub or shower Sit on a bath chair to bathe Use bathmats with nonskid backing Lighting Keep a flashlight in each room Put a nightlight along the pathway between the bedroom and the bathroom [employer] Patient Education Copyright 2008 - 2010 Jonh except where otherwise noted Preventing Falls: Exercises to Improve Balance, Flexibility, Strength, and Staying Power (This education is for all patients over 65 regardless of symptoms) Certain types of exercises may help make you less likely to fall. Try the ones below. Or do other exercises that your healthcare provider suggests. Depending on your health, you may need to start slowly. Dont let that stop you. Even small amounts of exercise can help you. Be sure to talk to yourhealthcare provider before starting any exercise program. Improve Balance Many types of exercise can help improve balance. Asad chi and yoga are good examples. Heres another one to try. You can do it anytime and almost anywhere. Stand next to a counter or solid support. Push yourself up onto your tiptoes. Hold for 5 seconds. If you start to lose your balance, hold on to the counter. Rest and repeat 5 times. Work up to holding for 20 to 30 seconds, if you can. Increase Flexibility Being more flexible makes it easier for you to move around safely. Try exercises like the seated hamstring stretch. Sit in a chair and put one foot on a stool. Straighten your leg and reach with both hands down either side of your leg. Reach as far down your leg as you can. Hold for about 20 seconds. Go back to the starting position. Then repeat 5 times. Switch legs. Build Strength Resistance exercises help build strength. You can do them without equipment. Or you can use weights, elastic bands, or special machines. One such exercise is called the biceps curl. You can hold a 1 pound weight or even a can of soup. Do this exercise at least 3 times a week. Strive for everyday. Sit up straight in a chair. Keep your elbow close to your body and your wrist straight. Bend your arm, moving your hand up to your shoulder. Then slowly lower your arm. Repeat 5 times. Switch to the other arm. Build Your Staying Power Aerobic exercises make your heart and lungs stronger so you can keep moving longer. Walking and swimming are two of the best types of exercises you can do. Using a stationary bike is great, too. Find an aerobic exercise that you enjoy. Start slowly and build up. Even 5 minutes is helpful. Aimfor a goal of 30 minutes, at least 3 times a week. You dont have to do 30 minutes in one session. Break it up and walk a little throughout the day. More Helpful Tips Start easy. Slowly work up to doing more. Talk with your healthcare provider about the best exercises for you. Call senior centers or health clubs about exercise programs. If needed, have a family member watch you walk every so often to check your stability. Exercise with a friend. Choose an activity you both enjoy. Try exercises that you can do anytime, anywhere. Here are two examples. Have someone with you when you first try these: Practice walking by placing one foot right in front of the other. Stand up and sit down 10 times. Repeat this throughout the day. [employer] Patient Education Copyright 2009 - 2010 Jonh except where otherwise noted. Preventing Falls: Moving Safely Using a Cane or Walker (This education is for all patients over 65 regardless of symptoms) Keep the cane away from your feet so you dont trip. A walking aid, such as a cane or walker, can help you stay more independent and avoid falls. Remember to keep your walking aid within easy reach when youre in a chair or in bed. And learn how to use it safely so you dont injure yourself. Using a Cane If you have a stronger side, hold the cane on that side. Get your balance. Move the cane and your weaker leg forward. Support your weight on both the cane and your weaker side. Step with your stronger leg. Start again from step 1. If youre using a folding walker, be sure you know how to lock it open. Check that its locked open before each use. Using a Walker Roll the walker (or lift it, if youre using one without wheels) forward about 12 inches. Step forward with your weaker leg first. Use the walker to help keep your balance. Bring your other foot forward to the center of the walker. Start again from step 1. Helpful Tips Check with your healthcare provider about the right walking aid to use. Ask about a walker with a seat attached. Check the tips of your cane or walker to make sure they have nonskid covers. Move slowly from room to room. Dont patel. Sit down to get dressed. Use a tiffani pack or backpack to keep your hands free. Get help for jobs that mean climbing, even on a stepstool. [employer] Patient Education Copyright 2008 - 2010 [employer] except where otherwise noted. Treating Urinary Incontinence in Men (This education is for all patients over 65 regardless of symptoms) You can't always control the release of urine. You may leak urine. Or you may not be able to hold your urine until you can get to a bathroom. This is called urinary incontinence. The problem can be managed. Talk to your doctor about your treatment options. Taking Medications Prescription medications may help you. They may: Help the sphincter to work better. (This is the muscle that closes to keep urine from leaking out of the bladder.) Help stop the bladder from julio cesar too often to push urine out. Help the bladder muscles contract with more force. Help relax the sphincter muscle and allow urine to flow more freely. Making Changes to Your Routine Certain changes in your daily routine may help. These include: Avoiding caffeine and alcohol. Using timed voiding. This is following a schedule for drinking fluids and urinating. Doing Kegel exercises daily. These exercises involve tightening the muscles in your sphincter and around your bladder to help strengthen them. Your doctor can explain how to do them. Using a Catheter A catheter is a narrow tube that is inserted through the urethra into the bladder. It drains urine.A condom catheter covers the penis. It channels urine into a collection bag. It is worn most of thetime. Intermittent catheterization means inserting a catheter to drain the bladder, then removing it. This is done on a regular schedule. Having Surgery If other options don't work, surgery may be recommended. If surgery is an option, your healthcare provider can discuss it with you and explain its risks and benefits. Healing After Prostate Surgery Surgery on the prostate gland can cause incontinence. Most often, the incontinence is only for a short time. It clears up when healing is complete. Very rarely, prostate surgery can result in permanent incontinence. documented in this encounter Progress Notes * Jocelyn Bro, - 10/02/2023 11:02 AM EDT SUBJECTIVE: Chief Complaint Patient presents with NEW PATIENT HPI: Dylan Owen is a 73 year old male who presents today to establish care. Pt was previouslyseen at . Pt notes that he typically drinks a 6 pack a day. He has done this for 54 years. He makes his own beer. He has not had a beer since this fever started. He feels that things do not taste right. Pt has had a fever for about 10-12 days. He notes that he has tested for COVID several times and ithas been negative. He notes that around 4PM he will spike. He notes that he is exhausted. He has difficulty breathing and exercising as he is worn out. His fevers are up to 101.6. he is getting Keytruda every 3 weeks. His last dose was 3 weeks ago on Thursday. He states that constantly feels cold but was not take him temperature prior to this. He notes that he feels like when he had lymes. He feels a bit disoriented. He notes he has headaches that are coming and going. He will take 325mg of tylenol in the morning. Things get worse in the afternoon. He notes no abdominal pain. No diarrhea or vomiting. He had nausea last night. He has had sweats and chills. He had some dry heaves. He notes no sore throat. He has some rasp in his throat. He notes no congestion. He is urinating ok. He has someburning with urination. He does not have frequency. He is trying to drink quite a bit. PHM: 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, N13.8 H/O asbestos exposure Z77.090 Type 2 diabetes mellitus with hemoglobin A1c goal of less than 8.0% (HCC) E11.9 History of positive PPD Z92.89 Diabetes mellitus with nephropathy (HCC) E11.21 Aortic root enlargement (HCC) I77.89 Typical atrial flutter (HCC) I48.3 Malignant melanoma of face (HCC) C43.30 Hypothyroidism E03.9 Paroxysmal atrial flutter (HCC) I48.92 Current Outpatient Medications Medication Sig Dispense Refill FISH OIL 1000 MG PO CAPS Take 1 Capsule by mouth 3 times a day. 0 0 CENTRUM SILVER PO TABS Take 1 Tablet by mouth in the morning. Loratadine 10 MG Oral Capsule Take 1 Capsule by mouth in the morning. diphenhydrAMINE HCl 25 MG Oral Capsule Take 1 Capsule by mouth at bedtime. Metamucil [facility] Fiber 58.12 % Oral Packet (Psyllium) Take 1 Packet by mouth in the morning and 1 Packet before bedtime. Acetaminophen 500 MG Oral Tablet Take 325 mg by mouth every 6 hours as needed for Pain, Moderate orPain, Mild. Lisinopril 2.5 MG Oral Tablet (Prinivil) Take 1 Tablet by mouth in the morning. (Patient taking differently: Take 1 Tablet by mouth at bedtime.) 30 Tablet 11 Apixaban 5 MG Oral Tablet (Eliquis) Take 1 Tablet by mouth in the morning and 1 Tablet before bedtime. 180 Tablet 3 Metoprolol Succinate ER 25 MG Oral Tablet Extended Release 24 Hour (toPROL XL) Take 1 Tablet by mouth in the morning. 90 Tablet 3 Atorvastatin Calcium 80 MG Oral Tablet (Lipitor) Take 1 Tablet by mouth at bedtime. 100 Tablet 3 metFORMIN HCl ER 500 MG Oral Tablet Extended Release 24 Hour (Glucophage XR) Take 2 Tablets by mouth at bedtime. 200 Tablet 3 Omeprazole 20 MG Oral Capsule Delayed Release (PriLOSEC) Take 1 Capsule by mouth in the morning. 100 Capsule 3 Levothyroxine Sodium 88 MCG Oral Tablet (Levoxyl) Take 1 Tablet by mouth daily first thing in the morning. (at least 30 min prior to breakfast or other meds) 100 Tablet 3 Ipratropium [place] 0.03 % Nasal Solution (Atrovent) Administer 2 Sprays into nostril in the morning and 2 Sprays before bedtime. (Patient taking differently: Administer 2 Sprays into each nostril inthe morning and 2 Sprays before bedtime.) 30 mL 3 Systane Ultra 0.4-0.3 % Ophthalmic Solution (Artificial Tears) Instill 1 Drop into both eyes as needed for Dry eyes. LORazepam 0.5 MG Oral Tablet (Ativan) Take 1 Tablet by mouth every 6 hours as needed for Anxiety. 30 Tablet 0 No current facility-administered medications for this visit. Past Medical History: Diagnosis Date Benign neoplasm of colon 08/2012 adenomatous polyp repeat in 3 yrs H/O asbestos exposure HTN, goal below 130/80 07/09/2011 Urticaria due to cold and heat 1996 cleared Past Surgical History: Procedure Laterality Date BX LYMPH NODE-SUPERFIC Left 03/04/2023 BIOPSY LYMPH NODE OPEN SUPERFICIAL performed by Horace Hudson MD at [facility] COLONOSCOPY, DIAGNOSTIC (RECTUM) 08/27/2012 ADENOMATOUS POLYPS repeat in 3 yrs COLONOSCOPY, DIAGNOSTIC (RECTUM) 10/01/2015 adenomatous polyps, repeat 3 yrs/COLONOSCOPY FLEXIBLE PROXIMAL DIAGNOSTIC performed by Elmer Hatfield MD at [facility]OSCOPY [facility] COLONOSCOPY, DIAGNOSTIC (RECTUM) 03/08/2019 serrated adenomatous polyps, diverticulosis, repeat 3 yrs/COLONOSCOPY FLEXIBLE PROXIMAL DIAGNOSTIC performed by Elmer Hatfield MD at ENDOSCOPY [facility] COLONOSCOPY, DIAGNOSTIC (RECTUM) 07/30/2022 benign adenomatous polyp, repeat 5 yrs / COLONOSCOPY FLEXIBLE PROXIMAL DIAGNOSTIC performed by Elmer Hatfield MD at ENDOSCOPY [facility] EGD, FLEXIBLE, DIAGNOSTIC 12/02/2021 Mild Schatzki ring , dilated to 54fr, single duodenal polyp likely lipoma / biopsies normal / recall 6 months / ESOPHAGOGASTRODUODENOSCOPY (EGD), FLEXIBLE, TRANSORAL, DIAGNOSTIC performed by Franco Shabazz DO at ENDOSCOPY [facility] IDENTIFY SENTINEL NODE, RADIOACTIVE TRACER Left 03/04/2023 INJECTION PROCEDURE FOR IDENTIFICATION SENTINEL NODE performed by Horace Hudson MD at [facility] INSER TUNN ACC DEV;5 YRS/OLDER Right 04/22/2023 INSERT TUNNELED CENTRAL VENOUS ACCESS WITH SUBQ PORT performed by Kaiden Armenta MD at OR [facility] LUMBAR SPINE FUSION, POST INTERBODY 07/31/2009 [place]ti L4-5 S1 RMV MALG LSN FACE/EAR 1.1-2CM Left 03/04/2023 EXCISION MALIGNANT FACE EAR EYELID 1.1 TO 2CM performed by Horace Hudson MD at [facility] VASECTOMY Review of patient's allergies indicates: Allergen Reactions Sulfamethoxazole-Trimethoprim Fever and Other (Please comment) Family History Problem Relation Age of Onset Diabetes Mother onset age 90 Other (a fib) Mother Heart Disorder Father SVT Diabetes Father Family Status Relation Status Mo Alive Gall Bladder Fa at age 83 AODM, CT Bro Alive Bro Alive Jack Alive Son Alive Social History Tobacco Use Smoking status: Former Current packs/day: 0.00 Average packs/day: 1.5 packs/day for 21.0 years (31.5 ttl pk-yrs) Types: Cigarettes Start date: 10/04/1969 Quit date: 10/04/1990 Years since quittin.0 Smokeless tobacco: Never Substance Use Topics Alcohol use: Not Currently Alcohol/week: 28.0 standard drinks of alcohol Types: 28 12 oz of beer per week Comment: 6 cans beer a night. Vaping/E-Cigarette Use Vaping/E-Cigarette Use Never User Vaping/E-Cigarette Substances Vaping/E-Cigarette Devices REVIEW OF SYSTEMS: Review of Systems Constitutional: Positive for chills, diaphoresis, fatigue and fever. Negative for unexpected weightchange. HENT: Negative for congestion, ear pain, sinus pressure, sinus pain and sore throat. Eyes: Negative for pain, discharge and visual disturbance. Respiratory: Negative for cough, chest tightness, shortness of breath and wheezing. Cardiovascular: Negative for chest pain, palpitations and leg swelling. Gastrointestinal: Negative for abdominal pain, constipation, diarrhea, nausea and vomiting. Genitourinary: As per HPI Musculoskeletal: Negative for arthralgias, gait problem and joint swelling. Skin: Negative for color change, pallor and rash. Neurological: Positive for headaches. Hematological: Negative for adenopathy. OBJECTIVE: BP 112/60 (BP Site: Left Arm, BP Position: Sitting, BP Cuff Size: Regular) | Pulse 81 | Temp 36.4 C (97.6 F) | Resp 14 | Ht 1.768 m (5' 9.6") | Wt 90.8 kg (200 lb 3.2 oz) | SpO2 95% | BMI 29.06 kg/m | BSA 2.11 m PHYSICAL EXAM: Physical Exam Constitutional: Appearance: He is well-developed. He is ill-appearing. HENT: Head: Normocephalic and atraumatic. Right Ear: Tympanic membrane, ear canal and external ear normal. Left Ear: Tympanic membrane, ear canal and external ear normal. Nose: Nose normal. No mucosal edema or rhinorrhea. Mouth/Throat: Pharynx: No oropharyngeal exudate. Eyes: General: No scleral icterus. Conjunctiva/sclera: Conjunctivae normal. Pupils: Pupils are equal, round, and reactive to light. Neck: Thyroid: No thyromegaly. Cardiovascular: Rate and Rhythm: Normal rate and regular rhythm. Heart sounds: No murmur heard. No friction rub. No gallop. Pulmonary: Effort: No respiratory distress. Breath sounds: Normal breath sounds. No wheezing, rhonchi or rales. Chest: Chest wall: No tenderness. Abdominal: General: Bowel sounds are normal. Palpations: Abdomen is soft. There is no mass. Tenderness: There is no abdominal tenderness. There is no guarding. Musculoskeletal: General: No tenderness or deformity. Normal range of motion. Cervical back: Normal range of motion and neck supple. Lymphadenopathy: Cervical: No cervical adenopathy. Skin: General: Skin is warm and dry. Coloration: Skin is jaundiced (appears slightly jaundiced but no scleral icterus). Findings: No rash. Neurological: Mental Status: He is alert and oriented to person, place, and time. Psychiatric: Speech: Speech normal. Behavior: Behavior normal. Thought Content: Thought content normal. ASSESSMENT/PLAN: (E11.9) Type 2 diabetes mellitus with hemoglobin A1c goal of less than 8.0% (HCC) (primary encounter diagnosis) Plan: pt will remain on current regimen. Will monitor. (C43.30) Malignant melanoma of face (HCC) Plan: Pt following with oncology. On keytruda. (I48.92) Paroxysmal atrial flutter (HCC) Plan: On Eliquis. Will conitnue. (R50.9) Fever, unspecified fever cause Plan: CULTURE, BLOOD, CULTURE, BLOOD, CBC WITH WBC DIFFERENTIAL, COMPREHENSIVE METABOLIC PANEL, URINALYSIS, POINT OF CARE (ENTER/EDIT), LYME DISEASE ANTIBODY SCREEN WITH REFLEX TO CONFIRMATION, ACUTE HEPATITIS PANEL, RESPIRATORY PATHOGEN PANEL, PCR, RESPIRATORY PATHOGEN PANEL, PCR, CULTURE, BLOOD, CULTURE, BLOOD, CBC WITH WBC DIFFERENTIAL, COMPREHENSIVE METABOLIC PANEL, LYME DISEASE ANTIBODY SCREEN WITH REFLEX TO CONFIRMATION, ACUTE HEPATITIS PANEL Pt with ongoing fevers. Work-up as outlined above. ?related to Keytruda. (R30.0) Dysuria Plan: URINALYSIS, POINT OF CARE (ENTER/EDIT), CULTURE, URINE, QUANTITATIVE Urine culture sent. (Z13.9) Risk and functional assessment Plan: See nursing note. Follow-up: 2 weeks Total time today including reviewing chart before the visit, pertinent labs, imaging reports, face to face time, and documentation time was 48 minutes. Jocelyn Bro DO * Avelina Morrow RPh - 10/02/2023 10:38 AM EDT Ativan- educated on high risk - only uses as needed; not needed since 2021 Recommended pt take melatonin over benadryl, pt agreeable documented in this encounter Nursing Notes * Eloisa Liang LPN - 10/02/2023 10:52 AM EDT Patient here to establish as a new patient. Reports ongoing back pain; h/o spinal surgery. Reports at times he has difficulty starting urine stream. Patient reports he has had a fever since Thursday. States temp daily at least 100. Follows with Dr. Cochran - heather Alfaro for Melanoma treatment. States at times he is disoriented d/t fever. States he wakes up during the night with cold sweats. States he felt like he was going to vomit last night-got up and went to bathroom, started gagging, thought he was going to vomit, states he was very hot. States this is how he felt in 2021 when he had Lyme's disease. States he drank 6-pack beer nightly. Last beer on Thursday - states it doesn't taste right. States he makes his own beer. documented in this encounter Plan of Treatment Upcoming Encounters Date Type Department Care Team (Late st Contact Info) Description 10/19/2023 10:00 AM EDT Office Visit Hematology/Oncology [employer] [address] [facility] [place], [place] [phone] Susie Epstein MD [address] [facility] [place], [place] [address] 10/20/2023 2:20 PM EDT Office Visit Family Practice [address], [place] [address] [place] [phone] Jocelyn Bro DO [address] [place] [address] Pending Results Name Type Priority Associated Diagnoses Date /Time CULTURE, BLOOD Lab Routine Fever, unspecified fever cause 10/02/2023 12:39 PM EDT CULTURE, BLOOD Lab Routine Fever, unspecified fever cause 10/02/2023 12:39 PM EDT Scheduled Orders Name Type Priority Associated Diagnoses Orde r Schedule URINALYSIS, POINT OF CARE (ENTER/EDIT) Point of Care Testing Routine Dysuria Fever, unspecified fever cause Ordered: 10/02/2023 Scheduled Procedures Name Priority Associated Diagnoses Date/Ti me COLONOSCOPY FLEXIBLE PROXIMAL DIAGNOSTIC Recall History of colon polyps ESOPHAGOGASTRODUODENOSCOPY ( EGD), FLEXIBLE, TRANSORAL, DIAGNOSTIC Recall Lipoma of other specified sites Health Maintenance Due Date Last Done Comments Diabetic Eye Exam 11/12/2023 11/11/2022, , 10/25/2021, Additional history exists Diabetic Foot Exam 12/19/2023 12/18/2022, 0 10/08/2021, 09/17/2020 Depression Screening 03/11/2024 03/11/2023 HbA1c 03/17/2024 09/15/2023, 07/23, 05/12/2023, Additional history exists Albumin/Creatinine Ratio 08/04/2024 024, 12/11/2022, 05/28/2022, Additional history exists GFR 10/05/2024 10/06/2023, 09/20, 09/28/2023, Additional history exists TSH 10/05/2024 10/06/2023, 08/21, 08/25/2023, Additional history exists COLONOSCOPY-EVERY 5 YRS AGES 18-100 07/30/2027 07/30/2022, 07/30/2022, 03/08/2019, Additional history exists Lipid Panel 08/04/2028 08/04/2023, 11/21, 05/28/2022, Additional history exists DTaP,Tdap,and Td Vaccines (2 - Td or Tdap) 06/12/2030 06/12/2020, 02/06/2000 Pneumococcal Vaccine: 65+ Years Completed 09/05/2016, 02/26/2016 AAA Screening Completed 03/17/2017, 08/06/2010 Zoster Vaccines Completed 07/07/2019, 02/21, 08/18/2014 COLONOSCOPY-EVERY 3 YRS AGES 18-100 Discontinued 07/30/2022, 07/30/2022, 03/08/2019, Additional history exists COVID-19 Vaccine Completed 04/30/2023, 09/2021, 11/11/2021, Additional history exists Influenza Vaccine (FLU shot) Completed 05/06/2023, 04/08/2022, 03/18/2021, Additional history exists GARDASIL-HPV IMMUNIZATION SERIES Aged Out No longer eligible based on patient's age to complete this topic Hepatitis B Aged Out No longer eligi ble based on patient's age to complete this topic MENINGOCOCCAL (MENACTRA/MENVEO) Aged Out No longer eligible based on patient's age to complete this topic documented as of this encounter Medical Devices Implanted Type Area Barrel Lathe Operator Device Identifier Shelf Expiration Date Model / Serial / Lot Port Implant W/8f Poly Cath - [id number] Implanted:Qty : 1 on 04/22/2023 by Kaiden Armenta MD at OR [facility] Right: Chest CR BARD : PERIPHERAL VASCULAR [id number] 11/19/2024 [id number] / / [id number] documented as of this encounter Procedures Procedure Name Priority Date/Time Associated Diagnosis Comments LYME DISEASE IGM/IGG CONFIRMATION Routine 10/02/2023 12:39 PM EDT Fever, unspecified fever cause LYME DISEASE ANTIBODY SCREEN Routine 10/02/2023 12:39 PM EDT Fever, unspecified fever cause DIFFERENTIAL, AUTOMATED Routine 10/02/2023 12:39 PM EDT Fever, unspecified fever cause LYME DISEASE ANTIBODY SCREEN WITH REFLEX TO CONFIRMATION Routine 10/02/2023 12:39 PM EDT Fever, unspecified fever cause ACUTE HEPATITIS PANEL Routine 10/02/2023 12:39 PM EDT Fever, unspecified fever cause COMPREHENSIVE METABOLIC PANEL Routine 10/02/2023 12:39 PM EDT Fever, unspecified fever cause CBC Routine 10/02/2023 12:39 PM EDT Fever, unspecified fever cause CULTURE, BLOOD Routine 10/02/2023 12:39 PM EDT Fever, unspecified fever cause CULTURE, BLOOD Routine 10/02/2023 12:39 PM EDT Fever, unspecified fever cause CBC Routine 10/02/2023 12:39 PM EDT Fever, unspecified fever cause DIFFERENTIAL, TECHNOLOGIST REVIEW Routine 10/02/2023 12:39 PM EDT Fever, unspecified fever cause RESPIRATORY PATHOGEN PANEL, PCR Routine 10/02/2023 12:03 PM EDT Fever, unspecified fever cause CULTURE, URINE, QUANTITATIVE Routine 10/02/2023 11:54 AM EDT Dysuria URINALYSIS, POINT OF CARE KARTHIK 10/02/2023 11:40 AM EDT documented in this encounter Results * (ABNORMAL) LYME DISEASE IGM/IGG CONFIRMATION (10/02/2023 12:39 PM EDT) [facility] Lyme IgM Confirmation Negative Negative 10/05/2023 10:15 AM EDT LABORATORY [facility] Lyme IgG Confirmation Positive(A) Negative 10/05/2023 10:15 AM EDT LABORATORY GM Interpretation 10/05/2023 10:15 AM EDT LABORATORY [facility] Comment: Results are consistent with B. burgdorferi infection (Lyme disease) in the recent or remote past. IgG-class antibodies may remain detectable for months to years following resolution of infection. Results should NOT be used to monitor or establish adequate response to therapy. Response to therapy is confirmed through resolution of clinical symptoms; additional laboratory testing should not be performed. Test results reported to [facility]. Blood Venous blood specimen / Unknown Venipuncture / Unknown 10/02/2023 12:39 PM EDT 10/02/2023 12:39 PM EDT Jocelyn Bro LAB BLOOD ORDERABLES Performing Organization Address [facility] Co de Phone Number LABORATORY [address] [address] * DIFFERENTIAL, TECHNOLOGIST REVIEW (10/02/2023 12:39 PM EDT) Blood Venous blood specimen / Unknown Venipuncture / Unknown 10/02/2023 12:39 PM EDT 10/02/2023 12:39 PM EDT [facility] BLOOD ORDERABLES Performing Organization Address [facility] de Phone Number LABORATORY [facility] [address] [place] [address] * (ABNORMAL) LYME DISEASE ANTIBODY SCREEN (10/02/2023 12:39 PM EDT) [facility] Lyme Disease Antibody Screen Positive( A) Negative 10/05/2023 8:25 AM EDT LABORATORY [facility] Comment: Result is preliminary and not diagnostic. Second-tier testing will be reflexively performed to confirm preliminary antibody screen result and reported separately. Test result reported to [facility]. Blood Venous blood specimen / Unknown Venipuncture / Unknown 10/02/2023 12:39 PM EDT 10/02/2023 12:39 PM EDT [facility] LAB BLOOD ORDERABLES Performing Organization Address [facility] de Phone Number LABORATORY [facility] [address] [place] [address] * (ABNORMAL) DIFFERENTIAL, AUTOMATED (10/02/2023 12:39 PM EDT) Pathologist [facility] WBC 4.60 4.00 - 10.80 K/uL 10/02/2023 11:55 PM EDT LABORATORY [facility] Neutrophils % 53.7 40.0 - 75.0 % 10/02/2023 11:55 PM EDT LABORATORY [facility] Lymphocytes % 30.4 18.0 - 42.0 % 10/02/2023 11:55 PM EDT LABORATORY [facility] Monocytes % 15.0(H) 1.0 - 11.0 % 10/02/2023 11:55 PM EDT LABORATORY [facility] Eosinophils % 0.0 0.0 - 6.0 % 10/02/2023 11:55 PM EDT LABORATORY [facility] Basophils % 0.2 0.0 - 2.0 % 10/02/2023 11:55 PM EDT LABORATORY [facility] Immature Granulocytes % 0.7 0.0 - 2.0 % 10/02/2023 11:55 PM EDT LABORATORY [facility] Absolute Neutrophils 2.47 1.80 - 7.70 K/uL 10/02/2023 11:55 PM EDT LABORATORY [facility] Absolute Lymphocytes 1.40 1.00 - 4.80 K/ul 10/02/2023 11:55 PM EDT LABORATORY [facility] Absolute Monocytes 0.69 0.00 - 1.10 K/uL 10/02/2023 11:55 PM EDT LABORATORY [facility] Absolute Eosinophils 0.00 0.00 - 0.70 K/uL 10/02/2023 11:55 PM EDT LABORATORY [facility] Absolute Basophils 0.01 0.00 - 0.20 K/uL 10/02/2023 11:55 PM EDT LABORATORY [facility] Absolute Immature Granulocytes 0.03 0.00 - 0.20 K/uL 10/02/2023 11:55 PM EDT LABORATORY [facility] Blood Venous blood specimen / Unknown Venipuncture / Unknown 10/02/2023 12:39 PM EDT 10/02/2023 12:39 PM EDT Jocelyn Bro DO LAB BLOOD ORDERABLES LABORATORY [facility] [address] [place] [address] * (ABNORMAL) CBC (10/02/2023 12:39 PM EDT) WBC 4.60 4.00 - 10.80 K/uL 10/02/2023 11:55 PM EDT LABORATORY [facility] RBC 3.58 4.50 - 5.25 M/uL 10/02/2023 11:55 PM EDT LABORATORY [facility] HGB 10.6(L) 14.0 - 16.8 g/dL 10/02/2023 11:55 PM EDT LABORATORY [facility] HCT 30.9(L) 40.0 - 48.4 % 10/02/2023 11:55 PM EDT LABORATORY [facility] MCV 86.3 82.0 - 99.5 fL 10/02/2023 11:55 PM EDT LABORATORY [facility] MCH 29.6 27.0 - 34.0 pg 10/02/2023 11:55 PM EDT LABORATORY [facility] MCHC 34.3 32.0 - 36.0 g/dL 10/02/2023 11:55 PM EDT LABORATORY [facility] RDW 14.3 11.5 - 15.5 % 10/02/2023 11:55 PM EDT LABORATORY [facility] PLT 109(L) 140 - 400 K/uL 10/02/2023 11:55 PM EDT LABORATORY [facility] MPV 13.1 6.6 - 11.1 fL 10/02/2023 11:55 PM EDT LABORATORY [facility] nRBCs 0 <=0 /100 WBCs 10/02/2023 11:55 PM EDT LABORATORY GM Blood Venous blood specimen / Unknown Venipuncture / Unknown 10/02/2023 12:39 PM EDT 10/02/2023 12:39 PM EDT Jocelyn Bro DO LAB BLOOD ORDERABLES LABORATORY [facility] [address] [place] [address] * ACUTE HEPATITIS PANEL (10/02/2023 12:39 PM EDT) Hepatitis A Antibody IgM Negative Negative 10/02/2023 11:57 PM EDT LABORATORY [facility] Hepatitis B Core Antibody IgM Negative Negative 10/02/2023 11:57 PM EDT LABORATORY [facility] Hepatitis B Surface Antigen Negative Negative 10/02/2023 11:57 PM EDT LABORATORY [facility] Hepatitis C Antibody Negative Negative 10/02/2023 11:57 PM EDT LABORATORY C Blood Venous blood specimen / Unknown Venipuncture / Unknown 10/02/2023 12:39 PM EDT 10/02/2023 12:39 PM EDT Jocelyn Bro DO LAB BLOOD ORDERABLES LABORATORY [facility] [address] [place] [address] * (ABNORMAL) COMPREHENSIVE METABOLIC PANEL (10/02/2023 12:39 PM EDT) BUN 12 6 - 20 mg/dL 10/02/2023 10:13 PM EDT LABORATORY [facility] Creatinine 0.9 0.6 - 1.2 mg/dL 10/02/2023 10:13 PM EDT LABORATORY [facility] Estimated Glomerular Filtration Rate >90 >=60 mL/min 10/02/2023 10:13 PM EDT LABORATORY [facility] Comment:eGFR is calculated b ased on the CKD-EPI 2020 equation Sodium 129(L) 135 - 146 mmol/L 10/02/2023 10:13 PM EDT LABORATORY [facility] Potassium 4.5 3.5 - 5.1 mmol/L 10/02/2023 10:13 PM EDT LABORATORY [facility] Chloride 94(L) 98 - 107 mmol/L 10/02/2023 10:13 PM EDT LABORATORY [facility] CO2 25 22 - 32 mmol/L 10/02/2023 10:13 PM EDT LABORATORY [facility] Anion Gap 10 7 - 15 mmol/L 10/02/2023 10:13 PM EDT LABORATORY [facility] Glucose 106 70 - 120 mg/dL 10/02/2023 10:13 PM EDT LABORATORY [facility] Albumin 3.7(L) 3.8 - 5.0 g/dL 10/02/2023 10:13 PM EDT LABORATORY [facility] AST 115(H) 10 - 50 U/L 10/02/2023 10:13 PM EDT LABORATORY [facility] Alkaline Phosphatase 115 35 - 130 U/L 10/02/2023 10:13 PM EDT LABORATORY [facility] Bilirubin, Total 1.0 <=1.2 mg/dL 10/02/2023 10:13 PM EDT LABORATORY C Calcium 8.9 8.4 - 10.2 mg/dL 10/02/2023 10:13 PM EDT LABORATORY C Protein 7.4 6.0 - 8.3 g/dL 10/02/2023 10:13 PM EDT LABORATORY [facility] ALT 65(H) 10 - 50 U/L 10/02/2023 10:13 PM EDT LABORATORY [facility] Blood Venous blood specimen / Unknown Venipuncture / Unknown 10/02/2023 12:39 PM EDT 10/02/2023 12:39 PM EDT Jocelyn Bro DO LAB BLOOD ORDERABLES LABORATORY [facility] [address] [place] [address] * RESPIRATORY PATHOGEN PANEL, PCR (10/02/2023 12:03 PM EDT) Pathologist [facility] Adenovirus by PCR Negative Negative 024 10:59 PM EDT LABORATORY [facility] Coronavirus 229E by PCR Negative Negative 10/02/2023 10:59 PM EDT LABORATORY [facility] Coronavirus HKU1 by PCR Negative Negative 10/02/2023 10:59 PM EDT LABORATORY [facility] Coronavirus NL63 by PCR Negative Negative 10/02/2023 10:59 PM EDT LABORATORY [facility] Coronavirus OC43 by PCR Negative Negative 10/02/2023 10:59 PM EDT LABORATORY [facility] Coronavirus SARS-CoV-2 by PCR Negative Negative 10/02/2023 10:59 PM EDT LABORATORY [facility] Human Metapneumovirus by PCR Negative Negative 10/02/2023 10:59 PM EDT LABORATORY [facility] Rhinovirus/Enterovi stefan by PCR Negative Negative 10/02/2023 10:59 PM EDT LABORATORY [facility] Influenza A Virus by PCR Negative Negative 10/02/2023 10:59 PM EDT LABORATORY [facility] Influenza B Virus by PCR Negative Negative 10/02/2023 10:59 PM EDT LABORATORY [facility] Parainfluenza Virus 1 by PCR Negative Negative 10/02/2023 10:59 PM EDT LABORATORY [facility] Parainfluenza Virus 2 by PCR Negative Negative 10/02/2023 10:59 PM EDT LABORATORY [facility] Parainfluenza Virus 3 by PCR Negative Negative 10/02/2023 10:59 PM EDT LABORATORY [facility] Parainfluenza Virus 4 by PCR Negative Negative 10/02/2023 10:59 PM EDT LABORATORY [facility] Respiratory Syncytial Virus by PCR Negative Negative 10/02/2023 10:59 PM EDT LABORATORY [facility] Bordetella pertussis by PCR Negative Negative 10/02/2023 10:59 PM EDT LABORATORY [facility] Chlamydia pneumoniae by PCR Negative Negative 10/02/2023 10:59 PM EDT LABORATORY [facility] Mycoplasma pneumoniae by PCR Negative Negative 10/02/2023 10:59 PM EDT LABORATORY [facility] Bordetella parapertussis by PCR Negative Negative 10/02/2023 10:59 PM EDT LABORATORY [facility] Comment: The primers that detect Rhinovirus may cross react with some Enterorviruses. The validation of bronchial specimens, tracheal aspirates, and throats for this assay was developed and performance characteristics determined by [employer]. The validation of alternate specimen types has not been cleared or approved by the U.S. Food and Drug Administration (FDA). It has been determined that such clearance or approval is not necessary. Upper Respiratory Nasopharyngeal swab / Unknown Non-blood Collection / Unknown 10/02/2023 12:03 PM EDT 10/02/2023 12:03 PM EDT Jocelyn Bro DO LAB MICRO - GENERAL ORDERABLES LABORATORY [facility] [address] [place] [address] * CULTURE, URINE, QUANTITATIVE (10/02/2023 11:54 AM EDT) Culture Growth No significant growth 10/03/2023 6:16 PM EDT LABORATORY [facility] Urine Urine specimen obtained by clean catch procedure / Unknown Non-blood Collection / Unknown 10/02/2023 11:54 AM EDT 10/02/2023 11:54 AM EDT Jocelyn Bro DO LAB MICRO - GENERAL ORDERABLES [facility] [address] [place] [address] * (ABNORMAL) URINALYSIS, POINT OF CARE (10/02/2023 11:40 AM EDT) Color, Urine Obion(A) Light Yellow, Yellow 10/02/2023 12:26 PM EDT [place] [address] Clarity, Urine Clear Clear 10/02/2023 12:26 PM EDT [place] [address] Glucose, Urine Negative Negative mg/dL 10/02/2023 12:26 PM EDT [place] [address] Bilirubin, Urine Negative Negative 10/02/2023 12:26 PM EDT [place] [address] Ketone, Urine Negative Negative mg/dL 10/02/2023 12:26 PM EDT [place] [address] Specific [place], Urine 1.015 1.003 - 1.030 10/02/2023 12:26 PM EDT [place] [address] Blood, Urine Negative Negative 10/02/2023 12:26 PM EDT [place] [address] pH, Urine 6.5 5.0, 5.5, 6.0, 6.5, 7.0, 7.5 units 10/02/2023 12:26 PM EDT [place] [address] Protein, Urine 30(A) Negative mg/dL 10/02/2023 12:26 PM EDT [place] [address] Urobilinogen, Urine 1.0 0.2, 1.0 mg/dL 10/02/2023 12:26 PM EDT [place] [address] Nitrite, Urine Negative Negative 10/02/2023 12:26 PM EDT [place] [address] Esterase, Urine Negative Negative 10/02/2023 12:26 PM EDT [place] [address] Urine 10/02/2023 11:4 0 AM EDT 10/02/2023 12:26 PM EDT Jocelyn Bro DO LAB POINT OF CARE TE ST DOCKED DEVICE UNSOLICITED RESULTS [facility] [phone] [place] [phone], [facility] documented in this encounter Visit Diagnoses Diagnosis Type 2 diabetes mellitus with hemoglobin A1c goal of less than 8.0% (HCC)- Primary Malignant melanoma of face (HCC) Malignant melanoma of skin of other and unspecified parts of face Paroxysmal atrial flutter (HCC) Atrial flutter Fever, unspecified fever cause Dysuria Risk and functional assessment Screening for unspecified condition documented in this encounter Additional Health Concerns Infection Onset Date Last Indicated Resolved Time Respiratory Rule-Out 10/02/2023 10/02/2023 024 10:59 PM EDT documented as of this encounter Advance Directives Documents on File Type Date Recorded Patient [employer] Operator Expl anation Advance Directives and Living Will 09/07/2017 LIVING WILL Latest Code Status on File Code Status Date Activated Date Inactivated Comments Full Code 03/04/2023 7:10 AM 03/04/2023 3:47 PM Question Answer Comments Discussion of Advance Directives occurred with: Not Discussed due to patient's condition Care Teams Creative Writer Relationship Specialty Start Date End Date Jocelyn Bro DO [address] [place] [address] PCP - General Family Medicine 10/02/23 documented as of this encounter
--- OUTSIDE RECORDS SUMMARY | 2023-10-08 03:52 | External Medical Summary ---
Author Name Unknown Address Unknown Organization K09:[facility] [place] [address] Laboratory Report Ordering Provider Test Date Status CHRIS MCCRAY 10/06/2023 09:09:16 Final Observation Date Value Abnormality Reference (Units ) Status BUN 10/06/2023 09:09:16 11 6-20 (mg/dL) Final Creatinine 10/06/2023 09:09:16 0.9 0.6-1.2 (mg/dL) Final Glomerular filtration rate/1.73 sq M.predicted [Volume Rate/Area] in Serum, Plasma or Blood by Creatinine-based formula (CKD-EPI) 10/06/2023 09:09:16 86 >=60 (mL/min) Final eGFR is calculated based on the CKD-EPI 2020 equation Sodium 10/06/2023 09:09:16 127 Below low normal 135 -146 (mmol/L) Final Potassium 10/06/2023 09:09:16 4.0 3.5-5.1 (m mol/L) Final Cl 10/06/2023 09:09:16 94 Below low normal 98- 107 (mmol/L) Final CO2 10/06/2023 09:09:16 24 22-32 (mmo l/L) Final Anion gap 10/06/2023 09:09:16 9 7-15 (mmol /L) Final Glucose 10/06/2023 09:09:16 159 Above high normal 70 -120 (mg/dL) Final Albumin 10/06/2023 09:09:16 3.4 Below low normal 3.8 -5.0 (g/dL) Final AST (Aspartate aminotransferase) 10/06/2023 09:09:16 146 Above high normal 10-50 (U/L) Final Alk Phos 10/06/2023 09:09:16 141 Above high normal 35 -130 (U/L) Final Bilirubin, Total 10/06/2023 09:09:16 1.1 <=1 .2 (mg/dL) Final Calcium 10/06/2023 09:09:16 9.1 8.4-10.2 ( mg/dL) Final Protein 10/06/2023 09:09:16 7.6 6.0-8.3 (g /dL) Final ALT (Alanine aminotransferase) 10/06/2023 09:09:16 81 Above high normal 10-50 (U/L) Final Performing Location [facility] [address] [place] [address]
--- OUTSIDE RECORDS SUMMARY | 2023-10-08 03:52 | External Medical Summary | Summary of Care ---
Author Name Unknown Organization [facility] Address [address] [place] [address] Phone [phone] Care Team Providers Care [employer] Name Role Phone Jocelyn Bro Primary Care Provider Reason for Visit * Reason Comments Outpatient Testing Encounter Details Date Type Department Care Team (Late st Contact Info) Description 10/06/2023 9:10 AM EDT Laboratory Laboratory [facility] [address] [place] [phone] [place], [address] [place] [address] Malignant melanoma of face (HCC); Encounter for long-term (current) use of medications Allergies Active Allergy Reactions Criticality Noted Date [...] morning. 0 Active Loratadine 10 MG Oral CapsuleIndications :in am Take 1 Capsule by mouth in the morning. 0 Active diphenhydrAMINE HCl 25 MG Oral Capsule Take 1 Capsule by mouth at bedtime. 0 Active Metamucil [facility] Fiber 58.12 % Oral Packet (Psyllium) Take 1 Packet by mouth in the morning and 1 Packet before bedtime. 0 Active Acetaminophen 500 MG Oral TabletIndications: as needed Take 325 mg by mouth every 6 hours as needed for Pain, Moderate or Pain, Mild. 0 Active Lisinopril 2.5 MG Oral Tablet (Prinivil)Indicati ons:HTN, goal below 140/90 Take 1 Tablet by mouth in the morning. 30 Tablet 11 06/25/2023 Active Additional Information Patient taking differently:2.5 mg OralHS, Reported on 09/14/2023 Apixaban 5 MG Oral Tablet (Eliquis)Indicatio ns:Typical atrial flutter (HCC),HTN, goal below 140/90 Take 1 Tablet by mouth in the morning and 1 Tablet before bedtime. 180 Tablet 06/25/2023 Active Metoprolol Succinate ER 25 MG Oral Tablet Extended Release 24 Hour (toPROL XL)Indications:Typ ical atrial flutter (HCC),HTN, goal below 140/90 Take [...] breakfast or other meds) 100 Tablet 3 06/25/2023 Active LORazepam 0.5 MG Oral Tablet (Ativan) Take 1 Tablet by mouth every 6 hours as needed for Anxiety. 30 Tablet 0 08/19/2023 Active Ipratropium Ullin 0.03 % Nasal Solution (Atrovent) Administer 2 Sprays into nostril in the morning and 2 Sprays before bedtime. 30 mL 3 09/16/2023 Active Additional Information Patient taking differently:2 SprayEach NostrilBID (.AM/PM), Reported on 10/02/2023 Systane Ultra 0.4-0.3 % Ophthalmic Solution (Artificial Tears) Instill 1 Drop into both eyes as needed for Dry eyes. 0 Active documented as of this encounter (statuses as [...] Impaired fasting glucose 04/11/201404/2020 [id number] 01/20/2014 04/10/2014 Overview: METABOLON QUANTOSE IR STUDY. PROJECT: #[id number], DRIVER LICENSE EXAMINER: Tarun Nieto MD/ Dejuan Magdaleno MD. SUMMARY: The Use of a Novel Insulin Resistance Test as a Monitoring Indicator of Glycemic Control in Prediabetics and Diabetics treated with metformin combined with lifestyle intervention. CONTACTS: During normal business hours, contact Lily Burgos RN, BSN at ; after hours Landing Support Specialist via the [facility] feller operator Impotence of organic origin 01/09/2014 08/31/2019 Epididymitis 01/09/2014 03/09/2017 Elevated prostate specific antigen (PSA) 01/09/2014 01/09/2014 Dry eye syndrome 12/31/2012 08/31/2019 Low testosterone 12/31/2012 08/31/2019 Family history of GI malignancy 07/09/2012 08/31/2019 Other specified hypothyroidism 08/19/2006 08/31/2019 ADVANCE DIRECTIVE INFORMATION 2006 08/31/2019 Overview: Information given to patient. DISC DIS [id number] - bulge L3-4, L4-5 02/21/2002 08/31/2019 FAM [...] on file documented as of this encounter Plan of Treatment Upcoming Encounters Date Type Department Care Team (Late st Contact Info) Description 10/06/2023 9:30 AM EDT Office Visit Hematology/Oncology [facility] [place] [address] [place] [phone] Susie Epstein MD [address] [place] [id number] Arrived 10/20/2023 2:20 PM EDT Office Visit Family Practice [address], [place] [address] [facility], [place] [phone] Jocelyn Bro DO [address] [facility], [place] [address] Pending Results Name Type Priority Associated Diagnoses Date /Time CBC WITH WBC DIFFERENTIAL Lab STAT Malignant melanoma of face (HCC) 10/06/2023 9:09 AM EDT COMPREHENSIVE METABOLIC PANEL Lab STAT Malignant melanoma of face (HCC) 10/06/2023 9:09 AM EDT TSH WITH FREE T4 IF INDICATED Lab STAT Malignant melanoma of face (HCC) Encounter for long-term (current) use of medications 10/06/2023 9:09 AM EDT CBC Lab STAT Malignant melanoma of face (HCC) 10/06/2023 9:09 AM EDT DIFFERENTIAL, AUTOMATED Lab STAT Malignant melanoma of face (HCC) 10/06/2023 9:09 AM EDT Scheduled Procedures Name Priority Associated Diagnoses Date/Ti [...] 08/04/2024 024, 12/11/2022, 05/28/2022, Additional history exists TSH 09/14/2024 09/15/2023, 03/0 10/2023, 08/04/2023, Additional history exists GFR 10/01/2024 10/02/2023, 04/0 01/2024, 09/15/2023, Additional history exists COLONOSCOPY-EVERY 5 YRS AGES [...] this encounter Medical Devices Implanted Type Area Vice President Of Brand Management Device Identifier Shelf Expiration Date Model / Serial / Lot Port Implant W/8f Poly Cath - [id number] Implanted:Qty : 1 on 04/22/2023 by Kaiden Armenta MD at OR [facility] Right: Chest CR BARD : PERIPHERAL VASCULAR [id number] 11/19/2024 [id number] / / [id number] documented as of this encounter Visit Diagnoses Diagnosis Malignant melanoma of face (HCC) Malignant melanoma of skin of other and unspecified parts of face Encounter for long-term (current) use of medications Encounter for long-term (current) use of other medications documented in this encounter Advance Directives Documents on File Type Date Recorded 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
--- OUTSIDE RECORDS SUMMARY | 2023-10-08 03:52 | External Medical Summary | Summary of Care ---
Author Name Unknown Organization [facility] Address [address] [place] [address] Phone [phone] Care Team Providers Care Electric Motor And Generator Assembler Name Role Phone Jocelyn Bro DO Primary Care Provider [phone] Reason for Visit * Reason Comments Follow Up 6 week follow up Encounter Details Date Type Department Care Team (Late st Contact Info) Description 10/06/2023 9:30 AM EDT Office Visit Hematology/Oncology [facility] [address] [place] [id number] Susie Epstein MD [address] [place] [address] Anemia, unspecified type*; Malignant melanoma of face (HCC) Allergies Active Allergy Reactions Criticality Noted Date [...] by mouth at bedtime. 100 Tablet 3 06/25/2023 Active metFORMIN HCl ER 500 MG [...] Anxiety. 30 Tablet 0 08/19/2023 Active Ipratropium Cross 0.03 % Nasal Solution (Atrovent) Administer 2 [...] Impaired fasting glucose 04/11/201404/2020 Metabolon Quantose IR [facility] Study*[id number] 01/20/2014 04/10/2014 Overview: METABOLON QUANTOSE IR STUDY. PROJECT: #[id number], LAND RECLAMATION SPECIALIST: Tarun Nieto MD/ Dejuan Magdaleno MD. SUMMARY: The Use of a Novel Insulin Resistance Test as a Monitoring Indicator of Glycemic Control in Prediabetics and Diabetics treated with metformin combined with lifestyle intervention. CONTACTS: During normal business hours, contact Lily Burgos RN, BSN at ; after hours Director Data via the [facility] pulverizer operator Impotence of organic origin 01/09/2014 08/31/2019 Epididymitis 01/09/2014 03/09/2017 Elevated prostate specific antigen (PSA) 01/09/2014 01/09/2014 Dry eye syndrome 12/31/2012 08/31/2019 Low testosterone 12/31/2012 08/31/2019 Family history of GI malignancy 07/09/2012 08/31/2019 Other specified hypothyroidism 08/19/2006 08/31/2019 ADVANCE DIRECTIVE INFORMATION 2006 08/31/2019 Overview: Information given to patient. DISC DIS [id number] - bulge L3-4, L4-5 02/21/2002 08/31/2019 FAM [...] 0 10/04/1969 - 10/04/1990 Smokeless Tobacco: Never Tobacco Cessation:Counseling Given: Not Answered Alcohol Use Standard Drinks/Week Comments Not Currently [...] Sign Reading Time Taken Comments Blood Pressure 109/68 10/06/2023 9:21 AM EDT Pulse 86 10/06/2023 9:21 AM EDT Temperature 37.2 C (99 F) 10/06/2023 9:21 AM EDT Respiratory Rate - - Oxygen Saturation 93% 10/06/2023 9:21 AM EDT Inhaled Oxygen Concentration - - Weight 90.9 kg (200 lb 6.4 oz) 10/06/2023 9:21 A M EDT Height - - Body Mass Index 29.09 10/02/2023 10:21 AM EDT documented in this encounter Progress Notes * Susie Epstein MD - 10/06/2023 9:34 AM EDT Outpatient Consult Note Data Source: Patient, Epic record. Data Source: Patient, Epic record. 10/06/2023 9:34 AM Dylan Owen [id number] 73 year old Patient Encounter: HEMATOLOGY/ONCOLOGY [facility] Cancer Diagnosis: Invasive melanoma diagnosis of left cheek. 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 Patient underwent wide excision and sentinel lymph node biopsy. Lymph node was negative for metastasis disease, stage pT4a a pN0, stage IIB Current Treatment: On adjuvant Keytruda, received 1st dose on 03/31/2023. Previous Treatment: Status post post wide surgical excision and sentinel lymph node biopsy. Oncologic History : 73-year-old male with past medical history significant for hypertension, chronic back pain status post fusion of L2/L3 and S1, history of Lyme disease and atrial flutter currently on Eliquis was referred with about diagnosis. Patient had small lesion for many years on the left side of the face but start groin for last few months. Patient was seen by Dermatology and had biopsy done. Pathology is consistent with invasive malignant melanoma with desmoplastic features and Breslow depth of 4.4 mm. Pathologically it is pT4 disease. Final Diagnosis A. Skin, left cheek, punch: Invasive malignant melanoma, with desmoplastic features; extending to a Breslow depth of approximately 4.4 millimeters (see comment) Comment: The lesion extends to the peripheral inked margin of the specimen. See synoptic summary below. The Breslow depth is measured to lesion noted in the subcutis. However, this area is adjacent to a hair follicle that is noted in the deep dermis just above the subcutis. The invasive component is [place] level V. One dermal mitoses per square millimeter is noted. Since the dermal component shows focal fascicular growth that recapitulates neural growth, it is difficult to determine if neurotropism is present. However, focal neural involvement/neurotropism is suspected. No ulceration, regression, satellitosis, tumor infiltrating lymphocytes, or angiolymphatic invasion is noted. Mast cells are noted throughout the lesion. Background sclerotic collagen is noted in association with the lesion. Immunohistochemical stains were performed to better characterize the specimen (all controls appropriate). SOX-10 labels the epidermal and dermal components of the lesion. PRAME labels the epidermal component, but fails to significantly label the dermal portion of the lesion. A dual-immunostain to MART-1 and Ki-67 shows labeling of the epidermal component, but MART-1 fails to label the dermal component. Procedure Biopsy, punch Specimen Laterality Left TUMOR Tumor Site Skin of other and unspecified parts of face: left cheek Histologic Type Desmoplastic melanoma Pure desmoplastic melanoma Maximum Tumor (Breslow) Thickness (Millimeters) 4.4 mm Ulceration Not identified Mitotic Rate 1 mitoses per mm2 Microsatellite(s) Not identified Lymphovascular Invasion Not identified Neurotropism Cannot be determined: Favored to be present Tumor-Infiltrating Lymphocytes Not identified Tumor Regression Not identified MARGINS Margin Status for Invasive Melanoma Invasive melanoma present at margin Margin(s) Involved by Invasive Melanoma Peripheral Margin Status for Melanoma in situ Melanoma in situ present at margin Margin(s) Involved by Melanoma in Situ Peripheral He quit smoking in 1990. He used to smoke 2 pack per day for about 20 years. He drinks 4-5 cans ofbeer on daily basis. Family history significant for the brother was diagnosed of melanoma. Mother was diagnosed of coloncancer and 1 brother was also diagnosed of prostate cancer. He underwent wide surgical excision and sentinel lymph node biopsy on 03/04/2023. There was a residual malignant melanoma with negative surgical margin Final Diagnosis A. Cheek, Left, left face melanoma, excision: Malignant melanoma (see comment) Benign melanocytic nevus (see comment) Seborrheic keratosis (see comment) Comment: The lesion, consistent with residual malignant melanoma, is not identified at a surgical margin in the planes of section examined. Prior procedure site changes are present but do not extend to a surgical margin in the planes of section examined. See updated synoptic summary below. Please note that the current synoptic data represents information from the prior specimen from this anatomiclocation ([id number]) as well as information from the current specimen if possible. Certain parameters such as Breslow depth, Apolinar level, and ulceration are often difficult or impossible to accurately determine in excision specimens when a prior sampling/biopsy has been performed. The prior reported T category of pT4a remains unchanged from the original synoptic report for case [id number]. Junctional melanocytic hyperplasia (of sun damaged skin) is noted throughout the specimen. Two incidentalbenign intradermal melanocytic nevi and incidental seborrheic keratosis are identified in the specimen. B. Neck, left level 3 cervical sentinel lymph node, biopsy: Favor negative for metastatic malignant melanoma (0/1) (see comment) Comment: Immunostains to MART-1 and SOX-10 (controls appropriate) were performed. The majority of cells in the lymph node specimen that label with SOX- 10 are favored to represent non-melanoma cells surrounding neurovascular bundles. However, a few larger labeled cells are noted in the parenchyma. Three cells in the node parenchyma label with MART-1. These cells are scattered opposed to clustered together. While micrometastatic malignant melanoma cannot entirely be ruled out, these cells likely represent spurious staining of non- melanoma cells. Specimen Laterality Left TUMOR Tumor Site Skin of other and unspecified parts of face: left face Histologic Type Superficial spreading melanoma (low-cumulative sun damage (CSD) melanoma) Mitotic Rate Cannot be determined Microsatellite(s) Not identified MARGINS Margin Status for Invasive Melanoma All margins negative for invasive melanoma Margin Status for Melanoma in situ All margins negative for melanoma in situ REGIONAL LYMPH NODES Regional Lymph Node Status All regional lymph nodes negative for tumor Total Number of Lymph Nodes Examined 1 Number of Bradley Nodes Examined 1 PATHOLOGIC STAGE CLASSIFICATION (pTNM, AJCC 8th Edition) pT Category pT4a pN Category pN0 PET scan was done on 03/03/2023 which shows no evidence of metastatic disease and there was a calcified 3.6 x 2.7 cm left calvarial mass consistent with meningioma. Interval History: He continues to have episode of fever, generalized weakness, fatigue and no energy. Workup including hepatitis profile which is negative. Lyme disease is negative, IgG is positive, blood cultures so far negative, respiratory pathogen panel PCR is negative. CT scan of chest abdomen pelvis revealed stable changes except splenomegaly. LABS/IMAGING: Results for orders placed or performed in visit on 10/06/23 CBC Result Value Ref Range WBC 4.42 4.00 - 10.80 K/uL RBC 3.60 4.50 - 5.25 M/uL HGB 10.2 (L) 14.0 - 16.8 g/dL HCT 31.2 (L) 40.0 - 48.4 % MCV 86.7 82.0 - 99.5 fL MCH 28.3 27.0 - 34.0 pg MCHC 32.7 32.0 - 36.0 g/dL RDW 15.1 11.5 - 15.5 % PLT 76 (L) 140 - 400 K/uL MPV 11.2 6.6 - 11.1 fL DIFFERENTIAL, AUTOMATED Result Value Ref Range WBC 4.42 4.00 - 10.80 K/uL Neutrophils % 58.0 40.0 - 75.0 % Lymphocytes % 26.9 18.0 - 42.0 % Monocytes % 14.9 (H) 1.0 - 11.0 % Eosinophils % 0.0 0.0 - 6.0 % Basophils % 0.2 0.0 - 2.0 % Absolute Neutrophils 2.56 1.80 - 7.70 K/uL Absolute Lymphocytes 1.19 1.00 - 4.80 K/ul Absolute Monocytes 0.66 0.00 - 1.10 K/uL Absolute Eosinophils 0.00 0.00 - 0.70 K/uL Absolute Basophils 0.01 0.00 - 0.20 K/uL DIFFERENTIAL, TECHNOLOGIST REVIEW Result Value Ref Range nRBCs Acanthocytes Moderate (A) None Seen Schistocytes Few (A) None Seen Reactive Lymphocytes Present (A) None Seen REVIEW OF SYSTEMS: General: No Fever, chills, night sweats, or weight loss. HEENT: No change in visual acuity, blurred or double vision. No epistaxis, facial pain, nasal discharge or change in hearing. Denies dysphagia, no muscosal ulceration, or sores noted. Cardiovascular: No chest pain, ANDERSON, or palpitations Respiratory: No shortness of breath, cough, hemoptysis, or pleuritic chest pain Gastrointestinal: No abdominal pain, nausea, vomiting, diarrhea, rectal pain or bleeding Genitourinary: Denies Hematuria or dysuria Musculoskeletal: generalized weakness, fatigue, tired Skin: No skin rash or lesions noted Neurologic: No numbness, weakness, neuropathic pain or change in cognitive function Psychiatric: No vegetative signs of depression Endocrine: No symptoms of hypothyroidism or hyperglycemia Hematologic: No bleeding or lymph nodes noted As mentioned above, all of the systems were reviewed in full and are unremarkable. 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 30 Tablet 0 Ipratropium Cross 0.03 % Nasal Solution (Atrovent) Administer 2 Sprays into nostril in the morning and 2 Sprays before bedtime. (Patient taking differently: Administer 2 Sprays into each nostril inthe morning and 2 Sprays before bedtime.) 30 mL 3 Systane Ultra 0.4-0.3 % Ophthalmic Solution (Artificial Tears) Instill 1 Drop into both eyes as needed for Dry eyes. No current facility-administered medications for this visit. Social History Tobacco Use Smoking status: Former Current packs/day: 0.00 Average packs/day: 1.5 packs/day for 21.0 years (31.5 ttl pk-yrs) Types: Cigarettes Start date: 10/04/1969 Quit date: 10/04/1990 Years since quittin.0 Smokeless tobacco: Never Vaping Use Vaping Use: Never used Substance Use Topics Alcohol use: Not Currently Alcohol/week: 28.0 standard drinks of alcohol Types: 28 12 oz of beer per week Comment: 6 cans beer a night. Drug use: No Review of patient's allergies indicates: Allergen Reactions Sulfamethoxazole-Trimethoprim Fever and Other (Please comment) PHYSICAL EXAMINATION: General Appearance: Weak appearing patient in no acute distress BP 109/68 (BP Site: Left Arm, BP Position: Sitting, BP Cuff Size: Regular) | Pulse 86 | Temp 37.2 C (99 F) (Tympanic) | Wt 90.9 kg (200 lb 6.4 oz) | SpO2 93% | BMI 29.09 kg/m | BSA 2.11 m Vitals reviewed. HEENT: No oral or pharyngeal masses, ulceration or thrush noted, no sinus tenderness. Neck is supple with no thyromegaly or JVD noted. Lymph Nodes: No lymphadenopathy noted in the occipital, pre and post auricular, cervical, supra andinfraclavicular, axillary, epitrochlear, inguinal, and popliteal region. Lungs/Thorax: Clear to auscultation, no accessory muscles of respiration being used. Heart: Regular rate and rhythm, normal S1, S2 Abdomen: Soft, nontender, bowel sounds present, no appreciable hepatosplenomegaly, no palpable masses Extremeties: Good pulses bilaterally, no peripheral edema. ASSESSMENT: 73-year-old male with past medical history significant for hypertension, chronic back pain status post fusion of L2/L3 and S1, history of Lyme disease and atrial flutter currently on Eliquis was referred with recent diagnosis of melanoma. He had a small nodule on the face which started growing. He had a biopsy done and histopathology was consistent with invasive melanoma with desmoplastic features. He underwent wide surgical excision by Dr. Hudson with sentinel lymph biopsy. There was a residual melanoma which was resected with negative margin and 1 lymph node was negative for metastasis.Patient has stage pT4 pN0 stage IIB disease. He had PET scan done which was negative for any metastatic disease. There is 3.6 x 2.7 cm left calvarial mass most consistent with meningioma. MRI brain was done on 04/18/2023 which shows stable extra-axial lesion overlying the left lateral frontal lobe consistent with meningioma. Currently patient is receiving adjuvant Keytruda. Clinically he is feeling weak, tired with no energy level and episodes of fever. He continued taking Tylenol. There was also increase in the LFTs. Septic workup so far is negative. CT scan shows stable changes and there is a new splenomegaly. Will request the blood test including retic count, LDH, vitamin B12, folic acid, ferritin, iron screen. Discussed with the patient and about the diagnosis reviewed all the available blood tests and CT scan finding. At this point will continue to hold Keytruda. PLAN: Continue hold Keytruda. He will return clinic for follow-up in 2 weeks with CBC and CMP The patient voiced understanding of all of the above. All questions and concerns were addressed in an apparently satisfactory manner. Susie Epstein MD (This note was completed using the dictation program Fluency Direct. As such, there may be misspellings, word substitutions, or other variations that should not change the essence of the clinical content of this encounter note. If there is need for further clarification, please direct questions to me.) documented in this encounter Nursing Notes * Teri Black, MED ASSIST - 10/06/2023 9:22 AM EDT Patient identifed by name and birthdate Do you have any concerns about pain management for today's visit? No Living Will or Advance Directive for Health Care as noted on the problem list. [facility] is a way you can talk to your provider on line through e-mail. Would you like to sign up? I can activate it for you? ALREADY ACTIVE Filed Vitals: 10/06/23 0921 BP: 109/68 Pulse: 86 Temp: 37.2 C (99 F) TempSrc: Tympanic SpO2: 93% Weight: 90.9 kg (200 lb 6.4 oz) Patient was instructed to not get up on the exam table/exam chair until directed and assisted by their provider; patient is to remain seated in the chair/ wheelchair/ exam table/ exam chair for fall prevention and safety reasons. Patient is aware to have assistance to step down off exam table/exam chair with personnel. Patient voiced full comprehension of instructions. documented in this encounter Plan of Treatment Upcoming Encounters Date Type Department Care Team (Late st Contact Info) Description 10/19/2023 10:00 AM EDT Office Visit Hematology/Oncology [facility] [place] [address] [place] [address] Susie Epstein MD [address] [place] [address] 10/20/2023 2:20 PM EDT Office Visit Family Practice [address] [place] [address] Jocelyn Bro DO [address] [place] [address] Scheduled Orders Name Type Priority Associated Diagnoses Orde r Schedule LD Lab Routine Malignant melanoma of face (HCC) Anemia, unspecified type Expected: 10/06/2023, Expires: 10/05/2024 RETICULOCYTE PANEL Lab Routine Malignant melanoma of face (HCC) Anemia, unspecified type Expected: 10/06/2023, Expires: 10/05/2024 FERRITIN Lab Routine Malignant melanoma of face (HCC) Anemia, unspecified type Ordered: 10/06/2023 FOLIC ACID Lab Routine Malignant melanoma of face (HCC) Anemia, unspecified type Ordered: 10/06/2023 IRON SCREEN, INCLUDING TIBC Lab Routine Malignant melanoma of face (HCC) Anemia, unspecified type Ordered: 10/06/2023 VITAMIN B12 Lab Routine Malignant melanoma of face (HCC) Anemia, unspecified type Ordered: 10/06/2023 CBC WITH WBC DIFFERENTIAL Lab Routine Malignant melanoma of face (HCC) Anemia, unspecified type Expected: 10/20/2023, Expires: 02/02/2024 COMPREHENSIVE METABOLIC PANEL Lab Routine Malignant melanoma of face (HCC) Anemia, unspecified type Expected: 10/20/2023, Expires: 02/02/2024 Scheduled Procedures Name Priority Associated Diagnoses Date/Ti [...] 05/28/2022, Additional history exists TSH 09/14/2024 09/15/2023, 0310/2023, 08/04/2023, Additional history exists GFR 10/05/2024 10/06/2023, 09/20, 09/28/2023, Additional history exists COLONOSCOPY-EVERY 5 YRS AGES [...] this encounter Medical Devices Implanted Type Area Shrimp Boat Captain Device Identifier Shelf Expiration Date Model / Serial / Lot Port Implant W/8f Poly Cath - [id number] Implanted:Qty : 1 on 04/22/2023 by Kaiden Armenta MD at [facility] Right: Chest CR BARD : PERIPHERAL VASCULAR [id number] 11/19/2024 [id number] / / [id number] documented as of this encounter Visit Diagnoses Diagnosis Anemia, unspecified type- Primary Malignant melanoma of face (HCC) Malignant melanoma of skin of other and unspecified parts of face documented in this encounter Advance Directives Documents on File Type Date Recorded Patient Credit Department Manager Expl anation Advance Directives and Living Will 09/07/2017 LIVING WILL Latest Code Status on File Code Status Date Activated Date Inactivated Comments Full Code 03/04/2023 7:10 AM 03/04/2023 3:47 PM Question Answer Comments Discussion of Advance Directives occurred with: Not Discussed due to patient's condition Care Teams Electric Motor And Generator Assembler Relationship Specialty Start Date End Date Jocelyn Bro DO [address] [place] [address] PCP - General Family Medicine 10/02/23 documented as of this encounter"
--- OUTSIDE RECORDS SUMMARY | 2023-10-08 03:52 | External Medical Summary ---
Author Name Unknown Address Unknown Organization [id number]:[facility] [place] [address] [place] [address] [place] [address] Laboratory Report Ordering Provider Test Date Status CHRIS MCCRAY 10/06/2023 09:09:16 Final Observation Date Value Abnormality Reference (Units ) Status TSH 10/06/2023 09:09:16 6.03 Above high normal 0. 27-4.20 (uIU/mL) Final Performing Location [facility] [place] [address] [place] [address]
--- OUTSIDE RECORDS SUMMARY | 2023-10-08 03:53 | External Medical Summary ---
Author Name Unknown Address Unknown Organization [id number][place] [place] [address] 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 IgG-class antibodies may remain detectable for months to years following resolution of infection. Results should NOT be used to monitor or establish adequate response to therapy. Response to therapy is confirmed through resolution of clinical symptoms; additional laboratory testing should not be performed.

Test results reported to [facility]. Performing Location [facility] [place] [address] [facility] [address]
--- OUTSIDE RECORDS SUMMARY | 2023-10-08 03:53 | External Medical Summary ---
Author Name Unknown Address Unknown Organization [id number]:[facility] [place] [address] [facility] [address] Laboratory Report Ordering Provider Test Date Status JOSEKALIE 10/02/2023 11:54:24 Final Observation Date Value Abnormality Reference (Units) Status Bacteria identified in Specimen by Culture 10/02/2023 11:54:24 No significant growth Final Test: Culture, Urine, Quanti tative
Specimen Source: Urine, Clean Catch
Specimen Type: Urine
Specimen Date: 10/02/2023 11:54 AM
Result Date: 10/03/2023 6:16 PM
Result Status: Final result
Resulting Lab: [facility] [place]
[address]
[facility] [address]

CULTURE

No significant growth

null Performing Location [facility] [place] [address] [facility] [address]
--- OUTSIDE RECORDS SUMMARY | 2023-10-08 03:53 | External Medical Summary ---
Author Name Unknown Address Unknown Organization [id number]:[facility] [place] [facility] [place] [address] [facility] [address] Laboratory Report Ordering Provider Test Date Status KALIE GARCIA 10/02/2023 12:39:50 Final Observation Date Value Abnormality Reference (Units ) Status WBC, Total 10/02/2023 12:39:50 4.60 4.00-10.80 (K/uL) Final RBC 10/02/2023 12:39:50 3.58 4.50-5.25 (M/uL) Final Hemoglobin 10/02/2023 12:39:50 10.6 Below low normal 14.0-16.8 (g/dL) Final HCT 10/02/2023 12:39:50 30.9 Below low normal 40.0-48.4 (%) Final MCV 10/02/2023 12:39:50 86.3 82.0-99.5 (fL) Final MCH 10/02/2023 12:39:50 29.6 27.0-34.0 (pg) Final MCHC 10/02/2023 12:39:50 34.3 32.0-36.0 (g/dL) Final RDW 10/02/2023 12:39:50 14.3 11.5-15.5 (%) Final Platelets 10/02/2023 12:39:50 109 Below low normal 140-400 (K/uL) Final MPV 10/02/2023 12:39:50 13.1 6.6-11.1 (fL) Final Nucleated erythrocytes/100 leukocytes [Ratio] in Blood by Automated count 10/02/2023 12:39:50 0 <=0 (/100 WBCs) Final Performing Location LABORATORY [place] - [address] [place] [address]
--- OUTSIDE RECORDS SUMMARY | 2023-10-08 03:53 | External Medical Summary ---
Author Name Unknown Address Unknown Organization K01:LABORATORY [facility] [place] - [address] [facility] [address] Laboratory Report Ordering Provider Test Date Status KALIE GARCIA 10/02/2023 12:03:28 Final Observation Date Value Abnormality Reference (Units ) Status Adenovirus DNA [Presence] in Nasopharynx by POP with non-probe detection 10/02/2023 12:03:28 Negative Negative Final Human coronavirus 229E RNA [Presence] in Nasopharynx by POP with non-probe detection 10/02/2023 12:03:28 Negative Negative Final Human coronavirus HKU1 RNA [Presence] in Nasopharynx by POP with non-probe detection 10/02/2023 12:03:28 Negative Negative Final Human coronavirus NL63 RNA [Presence] in Nasopharynx by POP with non-probe detection 10/02/2023 12:03:28 Negative Negative Final Human coronavirus OC43 RNA [Presence] in Nasopharynx by POP with non-probe detection 10/02/2023 12:03:28 Negative Negative Final SARS-CoV-2 (COVID-19) RNA [Presence] in Nasopharynx by POP with non-probe detection 10/02/2023 12:03:28 Negative Negative Final Human metapneumovirus RNA [Presence] in Nasopharynx by POP with non-probe detection 10/02/2023 12:03:28 Negative Negative Final Rhinovirus+Enterovirus RNA [Presence] in Nasopharynx by POP with non-probe detection 10/02/2023 12:03:28 Negative Negative Final Influenza virus A RNA [Presence] in Nasopharynx by POP with non-probe detection 10/02/2023 12:03:28 Negative Negative Final Influenza virus B RNA [Presence] in Nasopharynx by POP with non-probe detection 10/02/2023 12:03:28 Negative Negative Final Parainfluenza virus 1 RNA [Presence] in Nasopharynx by POP with non-probe detection 10/02/2023 12:03:28 Negative Negative Final Parainfluenza virus 2 RNA [Presence] in Nasopharynx by POP with non-probe detection 10/02/2023 12:03:28 Negative Negative Final Parainfluenza virus 3 RNA [Presence] in Nasopharynx by POP with non-probe detection 10/02/2023 12:03:28 Negative Negative Final Parainfluenza virus 4 RNA [Presence] in Nasopharynx by POP with non-probe detection 10/02/2023 12:03:28 Negative Negative Final Respiratory syncytial virus RNA [Presence] in Nasopharynx by POP with non-probe detection 10/02/2023 12:03:28 Negative Negative Final Bordetella pertussis.pertussis toxin promoter region [Presence] in Nasopharynx by POP with non-probe detection 10/02/2023 12:03:28 Negative Negative Final Chlamydophila pneumoniae DNA [Presence] in Nasopharynx by POP with non-probe detection 10/02/2023 12:03:28 Negative Negative Final Mycoplasma pneumoniae DNA [Presence] in Nasopharynx by POP with non-probe detection 10/02/2023 12:03:28 Negative Negative Final Bordetella parapertussis [id number] DNA [Presence] in Nasopharynx by POP with non-probe detection 10/02/2023 12:03:28 Negative Negative Final
The primers that detect Rhinovirus may cross react with some Enterorviruses. The validation of bronchial specimens, tracheal aspirates, and throats for this assay was developed and performance characteristics determined by [facility]. The validation of alternate specimen types has not been cleared or approved by the U.S. Food and Drug Administration (FDA). It has been determined that such clearance or approval is not necessary. [facility] Location LABORATORY [facility] [place] [facility] [address] [facility] [place]. [facility] [address]
--- OUTSIDE RECORDS SUMMARY | 2023-10-08 03:53 | External Medical Summary ---
Author Name Unknown Address Unknown Organization K01:LABORATORY [facility] [place] - [address] [facility] [address] Laboratory Report Ordering Provider Test Date Status JOSEKALIE 10/02/2023 12:39:50 Final Observation Date Value Abnormality Reference (Units ) Status BUN 10/02/2023 12:39:50 12 6-20 (mg/dL) Final Creatinine 10/02/2023 12:39:50 0.9 0.6-1.2 (mg/dL) Final Glomerular filtration rate/1.73 sq M.predicted [Volume Rate/Area] in Serum, Plasma or Blood by Creatinine-based formula (CKD-EPI) 10/02/2023 12:39:50 >90 >=60 (mL/min) Final eGFR is calculated based on the CKD-EPI 2020 equation Sodium 10/02/2023 12:39:50 129 Below low normal 135 -146 (mmol/L) Final Potassium 10/02/2023 12:39:50 4.5 3.5-5.1 (m mol/L) Final Cl 10/02/2023 12:39:50 94 Below low normal 98- 107 (mmol/L) Final CO2 10/02/2023 12:39:50 25 22-32 (mmo l/L) Final Anion gap 10/02/2023 12:39:50 10 7-15 (mmol /L) Final Glucose 10/02/2023 12:39:50 106 70-120 (mg /dL) Final Albumin 10/02/2023 12:39:50 3.7 Below low normal 3.8 -5.0 (g/dL) Final AST (Aspartate aminotransferase) 10/02/2023 12:39:50 115 Above high normal 10-50 (U/L) Final Alk Phos 10/02/2023 12:39:50 115 35-130 (U/ L) Final Bilirubin, Total 10/02/2023 12:39:50 1.0 <=1 .2 (mg/dL) Final Calcium 10/02/2023 12:39:50 8.9 8.4-10.2 ( mg/dL) Final Protein 10/02/2023 12:39:50 7.4 6.0-8.3 (g /dL) Final ALT (Alanine aminotransferase) 10/02/2023 12:39:50 65 Above high normal 10-50 (U/L) Final Performing Location LABORATORY [facility] [place] - [address] [facility] [address]
--- OUTSIDE RECORDS SUMMARY | 2023-10-08 03:53 | External Medical Summary ---
Author Name Unknown Address Unknown Organization : Laboratory Report Ordering Provider Test Date Status KALIE GARCIA 10/02/2023 11:40:00 Final Observation Date Value Abnormality Reference (Units ) Status Color of Urine by Auto 10/02/2023 11:40:00 Ferry Abnormal Light Yellow, Yellow Final Clarity, Urine 10/02/2023 11:40:00 Clear Clear Final Glucose [Mass/volume] in Urine by Automated test strip 10/02/2023 11:40:00 Negative Negative (mg/dL) Final Bilirubin.total [Presence] in Urine by Automated test strip 10/02/2023 11:40:00 Negative Negative Final Ketones [Mass/volume] in Urine by Automated test strip 10/02/2023 11:40:00 Negative Negative (mg/dL) Final Specific gravity, Urine 10/02/2023 11:40:00 1.015 1.003-1.030 Final Hemoglobin [Presence] in Urine by Automated test strip 10/02/2023 11:40:00 Negative Negative Final pH, Urine 10/02/2023 11:40:00 6.5 5.0, 5.5, 6.0, 6.5, 7.0, 7.5 (units) Final Protein [Mass/volume] in Urine by Automated test strip 10/02/2023 11:40:00 30 Abnormal Negative (mg/dL) Final Urobilinogen, Urine 10/02/2023 11:40:00 1.0 0.2, 1.0 (mg/dL) Final Nitrite [Presence] in Urine by Automated test strip 10/02/2023 11:40:00 Negative Negative Final Leukocyte esterase [Presence] in Urine by Automated test strip 10/02/2023 11:40:00 Negative Negative Final Performing Location
--- OUTSIDE RECORDS SUMMARY | 2023-10-08 03:53 | External Medical Summary ---
Author Name Unknown Address Unknown Organization K01:[facility] [place] [address] [place] [address] Laboratory Report Ordering Provider Test Date Status KALIE GARCIA 10/02/2023 12:39:50 Final Observation Date Value Abnormality Reference (Units ) Status Borrelia burgdorferi IgG and IgM [Interpretation] in Serum by Immunoassay 10/02/2023 12:39:50 Positive Abnormal Negative Final Result is preliminary and no t diagnostic. Second-tier testing will be reflexively performed to confirm preliminary antibody screen result and reported separately.

Test result reported to [facility]. Performing Location LAB[facility]ORY [facility] [place] [address] [place] [address]
--- OUTSIDE RECORDS SUMMARY | 2023-10-08 03:53 | External Medical Summary ---
Author Name Unknown Address Unknown Organization K01:LABORATORY C - [address] [place] [address] Laboratory Report Ordering Provider Test Date Status KALIE GARCIA 10/02/2023 12:39:50 Final Observation Date Value Abnormality Reference (Units ) Status Hep A IgM 10/02/2023 12:39:50 Negative Negative Final Hep B Core IgM 10/02/2023 12:39:50 Negative Negat trice Final Hep B surface Ag 10/02/2023 12:39:50 Negative Neg ative Final Hep C Ab 10/02/2023 12:39:50 Negative Negative Final Performing Location LABORATORY [facility] - [address] [place] [address]
--- OUTSIDE RECORDS SUMMARY | 2023-10-08 03:53 | External Medical Summary | Summary of Care ---
Author Name Unknown Organization [facility] Address [address] [place] [address] Phone [phone] Care Team Providers Care Ground Crew Lines Person Name Role Phone Carson Gallardo Primary Care Provider Reason for Visit * Reason Comments Dosage Adjustment In Person (Anticoag Cl inic) Medication Management Encounter Details Date Type Department Care Team (Late st Contact Info) Description 10/02/2023 10:10 AM EDT Pharmacy Family Practice [address] [facility] [address] [place] [address] College, Pharmacist [address] [address] Encounter for medication management* Allergies Active Allergy Reactions Criticality Noted Date Comments Sulfamethoxazole-Trimethop rim Fever,Other (Please comment) 09/13/2019 documented as of this encounter (statuses as of 10/02/2023) Medications Medication Sig Dispensed Refills Start Date [...] mouth in the morning. 90 Tablet 3 06/25/2023 Active Atorvastatin Calcium 80 MG Oral [...] Anxiety. 30 Tablet 0 08/19/2023 Active Ipratropium [place] 0.03 % Nasal Solution (Atrovent) Administer 2 Sprays into nostril in the morning and 2 Sprays before bedtime. 30 mL 3 09/16/2023 Active Additional Information Patient taking differently:2 SprayEach NostrilBID (.AM/PM), Reported on 10/02/2023 documented as of this encounter (statuses as of 10/02/2023) Active Problems Problem Noted Date Diagnosed Date [...] as of this encounter (statuses as of 10/02/2023) Resolved Problems Problem Noted Date Diagnosed Date Resolved Date Family history of malignant neoplasm of prostate 03/11/2018 08/31/2019 Impaired fasting glucose 04/11/201404/2020 Metabolon Quantose IR Resear Study*[id number] 01/20/2014 04/10/2014 Overview: METABOLON QUANTOSE IR STUDY. PROJECT: #[id number], FIRER ELECTRIC LOCOMOTIVE: Tarun Nieto MD/ Dejuan Magdaleno MD. SUMMARY: The Use of a Novel Insulin Resistance Test as a Monitoring Indicator of Glycemic Control in Prediabetics and Diabetics treated with metformin combined with lifestyle intervention. 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 DISC DIS [id number] - bulge L3-4, L4-5 02/21/2002 08/31/2019 FAM HX-DIABETES MELLITUS - Dad 01/31/1999 08/31/2019 Mixed dyslipidemia 02/01/1998 9 Overview: Per Lipid Taxonomy. Idiopathic urticaria 020 documented as of this encounter (statuses as of 10/02/2023) Immunizations Name Administration Dates Next Due COVID-19 [...] on file documented as of this encounter Progress Notes * Avelina Morrow, [facility] - 10/02/2023 9:33 AM EDT Medication Therapy [facility] - Medication Reconciliation Dylan Owen is an 73 year old being seen for medication reconciliation. Prescription insurance information: YANET Liao Do you have any other prescription coverage: No Preferred pharmacy: [facility]) [x] Problem list reviewed [x] Allergies reviewed and updated if needed [x] Drug interaction check completed [x] HEDIS list addressed Immunizations: Up to Date Medication Organization/Adherence: Has home care nurse or caregiver: no Patient uses a pill box? No When you are at home, how often do you miss doses of medications? Never How difficult is it for you to pay for your medications? Not difficult at all How often do you experience side effects from your medications? Never Labs/Vitals/Risk Scores: The 10-year ASCVD risk score (Josefa FIELDS, et al., 2019) is: 33.6% Values used to calculate the score: Age: 73 years Sex: Male Is Non- : No Diabetic: Yes Tobacco smoker: No Systolic Blood Pressure: 128 mmHg Is BP treated: Yes HDL Cholesterol: 61 mg/dL Total Cholesterol: 142 mg/dL BP Readings from Last 3 Encounters: 09/28/23 128/77 09/15/23 118/75 09/14/23 110/62 Recent Labs Units 09/15/23 0800 08/04/23 0828 05/12/23 0945 HEMOGLOBIN A1C - [facility] % 6.7* 6.1* 6.3* Recent Labs Units 09/28/23 1306 09/15/23 0800 08/25/23 0740 ESTIMATED GLOMERULAR FILTRATION RATE - [facility] mL/min 88 90 >90 Serum creatinine: 0.9 mg/dL 09/28/23 1306 Estimated creatinine clearance: 84.8 mL/min Assessment & Plan: Medication discrepancies identified: none Dose/frequency of medications appropriate for current renal function? yes Other medication problems identified: Taking benadryl for sleep and ativan for anxiety PRN; high risk med concern for anticholenergic effects Discussed melatonin to replace benadryl. Pt agreeable but wanted to keep benadryl on medication list until he tried melatonin In terms of Ativan, pt has not had a prescription since 2019 but states he has not needed to use itsince 2021. Pt notes his anxiety gets worse with political campaigns and thinks the 2023 election will provide him more anxiety. Has not tried other anxiety medications. Patient education provided: Educated pt on high risk medications (benadryl and ativan) and their risk of confusion and falls inthose 65 and older. Referral pended for follow up management of: N/A HTN- controlled T2DM- within goal HLD- within goal Atrial flutter- eliquis dose appropriate Summary- Changes & Recommendations: Medication reconciliation completed with patient. Recommended melatonin 1-3 mg once daily at bedtime for insomnia. Recommended pt to stop taking benadryl. PCP to follow up regarding ativan at today's visit. Repeat med rec visit scheduled in 1 year Avelina Morrow RPh Clinical Pharmacist - Healthcare Sales Representative Medication Therapy Management [facility] 10/02/2023, 9:34 AM documented in this encounter Plan of Treatment Upcoming Encounters Date Type Department Care Team (Late st Contact Info) Description 10/06/2023 9:10 AM EDT Laboratory [facility] [place] [address] [place] [phone] Danielle Lab [facility] [address] [facility] [place] [address] 10/06/2023 9:30 AM EDT Office Visit [facility]ematology[facility] [place] [address] [place] [address] Susie Epstein MD [address] [place] [address] 10/06/2023 10:00 AM EDT Hem/Onc Treatment Hematology/Oncology Treatment, [place] [address] [place] [address] 03/17/2024 8:20 AM EDT Office Visit Family Practice [facility] [address] [place] [address] Martha Gr CRNP [address] [place] [address] 09/15/2024 10:00 AM EDT Office Visit [facility] [address] [place] [address] Carson Gallardo DO [address] [place] [address] Scheduled Procedures Name Priority Associated Diagnoses Date/Ti [...] 03/0 10/2023, 08/04/2023, Additional history exists GFR 09/27/2024 09/28/2023, 08/21, 08/25/2023, Additional history exists COLONOSCOPY-EVERY 5 [...] this encounter Medical Devices Implanted Type Area Frame Builder Device Identifier Shelf Expiration Date Model / Serial / Lot Port Implant W/8f Poly Cath - [id number] Implanted:Qty : 1 on 04/22/2023 by Kaiden Armenta MD at OR [facility] Right: Chest CR BARD : PERIPHERAL VASCULAR [id number] 11/19/2024 [id number] / / [id number] documented as of this encounter Visit Diagnoses Diagnosis Encounter for medication management- Primary Encounter for long-term (current) use of other medications documented in this encounter Advance Directives Documents on File Type Date Recorded Patient Sales Account Associate Expl anation Advance Directives and Living Will 09/07/2017 LIVING WILL Latest Code Status on File Code Status Date Activated Date Inactivated Comments Full Code 03/04/2023 7:10 AM 03/04/2023 3:47 PM Question Answer Comments Discussion of Advance Directives occurred with: Not Discussed due to patient's condition Care Teams Ground Crew Lines Person Relationship Specialty Start Date End Date Carson Gallardo DO [address] [place] [address] PCP - General Family Medicine 07/18/19 documented as of this encounter
--- OUTSIDE RECORDS SUMMARY | 2023-10-08 03:53 | External Medical Summary ---
Author Name Unknown Address Unknown Organization K09:LAB[facility]ATORY [place] [address] Laboratory Report Ordering Provider Test Date Status CHRIS MCCRAY 10/06/2023 09:09:16 Final Observation Date Value Abnormality Reference (Units ) Status Nucleated erythrocytes/100 leukocytes [Ratio] in Blood by Automated count 10/06/2023 09:09:16 Final Acanthocytes [Presence] in Blood by Light microscopy 10/06/2023 09:09:16 Moderate Abnormal None Seen Final Schistocytes 10/06/2023 09:09:16 Few Abnormal None Seen Final Variant lymphocytes [Presence] in Blood by Light microscopy 10/06/2023 09:09:16 Present Abnormal None Seen Final Performing Location LABORATORY [place] [address]
--- OUTSIDE RECORDS SUMMARY | 2023-10-08 03:53 | External Medical Summary | Summary of Care ---
Author Name Unknown Organization [facility] Address [address] [place] [address] Phone [phone] Care Team Providers Care Thermostat Maker Name Role Phone Carson Gallardo Primary Care Provider Encounter Details Date Type Department Care Team (Late st Contact Info) Description 10/02/2023 Orders Only Hematology/Oncology, [facility] [address] [place] [address] Susie Epstein MD [address] [place] [address] Allergies Active Allergy Reactions Criticality Noted Date [...] 1 Tablet before bedtime. 180 Tablet 3 06/25/2023 Active Metoprolol Succinate ER 25 MG [...] Anxiety. 30 Tablet 0 08/19/2023 Active Ipratropium [place] 0.03 % Nasal Solution (Atrovent) Administer 2 [...] fasting glucose 04/11/201404/2020 Metabolon Quantose IR Resear Study*[id number] 01/20/2014 04/10/2014 Overview: METABOLON QUANTOSE IR STUDY. PROJECT: #[id number], BARGE ENGINEER: Tarun Nieto MD/ Dejuan Magdaleno MD. SUMMARY: The Use of a Novel Insulin Resistance Test as a Monitoring Indicator of Glycemic Control in Prediabetics and Diabetics treated with metformin combined with lifestyle intervention. CONTACTS: During normal business hours, contact Lily Burgos RN, BSN at ; after hours Concrete Float Maker via the [facility] freight elevator operator Impotence of organic origin 01/09/2014 08/31/2019 Epididymitis 01/09/2014 03/09/2017 Elevated prostate specific antigen (PSA) 01/09/2014 01/09/2014 Dry eye syndrome 12/31/2012 08/31/2019 Low testosterone 12/31/2012 08/31/2019 Family history of GI malignancy 07/09/2012 08/31/2019 Other specified hypothyroidism 08/19/2006 08/31/2019 ADVANCE DIRECTIVE INFORMATION 2006 08/31/2019 Overview: Information given to patient. DISC DIS [id number] - bulge L3-4, L4-5 02/21/2002 08/31/2019 FAM [...] Description 10/06/2023 9:10 AM EDT Laboratory Laboratory [address] [place] [address] [place] [phone] Daniel[facility] [address] [place] [address] 10/06/2023 9:30 AM EDT Office Visit Hematology/Oncology [facility] [place] [address] [facility] [place] [phone] Susie Epstein MD [address] [place] [address] 10/06/2023 10:00 AM EDT Hem/Onc Treatment Hematology/Oncology Treatment, [place] [address] [facility] [place] [phone] 03/17/2024 8:20 AM EDT Office Visit [facility] [address] [place] [address] Martha Gr CRNP [address] [place] [address] 09/15/2024 10:00 AM EDT Office Visit [facility] [address] [place] [address] Carson Gallardo DO [address] [place] [address] Scheduled Procedures Name Priority Associated Diagnoses Date/Ti [...] 07/23, 05/12/2023, Additional history exists Albumin/Creatinine Ratio 08/04/20242 024, 12/11/2022, 05/28/2022, Additional history exists TSH 09/14/2024 09/15/2023, 4, 08/04/2023, Additional history exists GFR 09/27/2024 09/28/2023, [...] this encounter Medical Devices Implanted Type Area Clinical Phlebotomist Device Identifier Shelf Expiration Date Model / Serial / Lot Port Implant W/8f Poly Cath - [id number] Implanted:Qty : 1 on 04/22/2023 by Kaiden Armenta MD at [facility] Right: Chest CR BARD : PERIPHERAL VASCULAR [id number] 11/19/2024 [id number] / / [id number] documented as of this encounter Additional Health Concerns Infection Onset Date Last Indicated Resolved Time Respiratory Rule-Out 10/02/2023 10/02/2023 documented as of this encounter Advance Directives Documents on File Type Date Recorded Patient Small Products Assembler Expl anation Advance Directives and Living Will 09/07/2017 LIVING WILL Latest Code Status on File Code Status Date Activated Date Inactivated Comments Full Code 03/04/2023 7:10 AM 03/04/2023 3:47 PM Question Answer Comments Discussion of Advance Directives occurred with: Not Discussed due to patient's condition Care Teams Thermostat Maker Relationship Specialty Start Date End Date Carson Gallardo DO [address] [place] [address] PCP - General Family Medicine 07/18/19 documented as of this encounter
--- OUTSIDE RECORDS SUMMARY | 2023-10-08 03:53 | External Medical Summary ---
Author Name Unknown Address Unknown Organization K01:[facility] [place] [address] [facility] [address] Laboratory Report Ordering Provider Test Date Status KALIE GARCIA 10/02/2023 12:39:50 Final Observation Date Value Abnormality Reference (Units ) Status SYNC LEUKOCYTES IN BLOOD BY AUTOMATED COUNT 10/02/2023 12:39:50 4.60 4.00-10.80 (K/uL) Final Segs 10/02/2023 12:39:50 53.7 40.0-75.0 (%) Final Lymphs % 10/02/2023 12:39:50 30.4 18.0-42.0 (%) Final Monos 10/02/2023 12:39:50 15.0 Above high normal 1.0-11.0 (%) Final Eosinophils 10/02/2023 12:39:50 0.0 0.0-6.0 (%) Final Basos 10/02/2023 12:39:50 0.2 0.0-2.0 (%) Final Immature Granulocyte, Percent 10/02/2023 12:39:50 0.7 0.0-2.0 (%) Final Absolute Segs 10/02/2023 12:39:50 2.47 1.80-7.70 (K/uL) Final Lymphs, absolute 10/02/2023 12:39:50 1.40 1.00-4.80 (K/ul) Final Monos, Abs 10/02/2023 12:39:50 0.69 0.00-1.10 (K/uL) Final Eos, Abs 10/02/2023 12:39:50 0.00 0.00-0.70 (K/uL) Final Basos, Abs 10/02/2023 12:39:50 0.01 0.00-0.20 (K/uL) Final Immature Granulocytes, Number 10/02/2023 12:39:50 0.03 0.00-0.20 (K/uL) Final Performing Location [facility] [place] [address] [facility] [address]
--- OUTSIDE RECORDS SUMMARY | 2023-10-08 03:53 | External Medical Summary | Summary of Care ---
Author Name Unknown Organization [facility] Address [address] [place] [address] Phone [phone] Care Team Providers Care Executive Services Administrator Name Role Phone Carson Gallardo Primary Care Provider Reason for Referral * Precert (Within 10 days (routine)) - Pending Review Specialty Diagnoses / Procedures Referred By Tanisha hook Referred To Contact Radiology Diagnoses Malignant melanoma of face (HCC) Procedures CT CHEST/ABDOMEN/PELVIS WITH IV CONTRAST WITH ORAL CONTRAST Susie Epstein MD [address] [place] [address] Referral ID Status Reason Start Date Expiration Date V isits Requested Visits Authorized [id number] Pending Review 09/29/2023 999 999 Reason for Visit * Reason Comments Follow Up Acute follow up Encounter Details Date Type Department Care Team (Late st Contact Info) Description 09/28/2023 2:00 PM EDT Office Visit Hematology/Oncology [address] [place] [address] [place] [address] Susie Epstein MD [address] [place] [address] Malignant melanoma of face (HCC)* Allergies Active Allergy Reactions Criticality Noted Date Comments Sulfamethoxazole-Trimethop rim Fever,Other (Please comment) 09/13/2019 documented as of this encounter (statuses as of 09/28/2023) Medications Medication Sig Dispensed Refills Start Date End Date Status FISH OIL 1000 MG PO CAPS Take by mouth. 0 0 2006 Active CENTRUM SILVER PO TABS Take by mouth. 0 Active METFORMIN HCL ER (OSM) 500 MG PO [id number]:Me tabolon Quantose IR Research Study*[id number] Take as directed by study staff 400 Tab 0 01/20/2014 Active Loratadine 10 MG Oral CapsuleIndications :in [...] by mouth at bedtime. 200 Tablet 3 06/25/2023 Active Omeprazole 20 MG Oral Capsule Delayed Release (PriLOSEC) Take 1 Capsule by mouth in the morning. 100 Capsule 3 06/25/2023 Active Terbinafine HCl 1 % External Cream (LamISIL AT ATHLETE'S FOOT)Indications:T inea pedis, unspecified laterality Apply to the affected area of the feet twice daily for 14-28 days. 42 g 5 06/29/2023 Active Levothyroxine Sodium 88 MCG Oral Tablet (Levoxyl) Take 1 Tablet by mouth daily first thing in the morning. (at least 30 min prior to breakfast or other meds) 100 Tablet 3 06/25/2023 Active LORazepam 0.5 MG Oral Tablet (Ativan) Take 1 Tablet by mouth every 6 hours as needed for Anxiety. 30 Tablet 0 08/19/2023 Active Ipratropium [place] 0.03 % Nasal Solution (Atrovent) Administer 2 Sprays into nostril in the morning and 2 Sprays before bedtime. 30 mL 3 09/16/2023 Active documented as of this encounter (statuses as of 09/28/2023) Active Problems Problem Noted Date Diagnosed Date [...] as of this encounter (statuses as of 09/28/2023) Resolved Problems Problem Noted Date Diagnosed Date Resolved Date Family history of malignant neoplasm of prostate 03/11/2018 08/31/2019 Impaired fasting glucose 04/11/201404/2020 Metabolon Quantose [facility] Study*[id number] 01/20/2014 04/10/2014 Overview: METABOLON QUANTOSE IR STUDY. PROJECT: #[id number], MANUFACTURING WEAVER: Tarun Nieto MD/ Dejuan Magdaleno MD. SUMMARY: The Use of a Novel Insulin Resistance Test as a Monitoring Indicator of Glycemic Control in Prediabetics and Diabetics treated with metformin combined with lifestyle intervention. CONTACTS: During normal business hours, contact Lily Burgos RN, BSN at ; after hours Pollution Control Engineer via the [facility] hospital exhaust machine operator Impotence of organic origin 01/09/2014 08/31/2019 Epididymitis 01/09/2014 03/09/2017 Elevated prostate specific antigen (PSA) 01/09/2014 01/09/2014 Dry eye syndrome 12/31/2012 08/31/2019 Low testosterone 12/31/2012 08/31/2019 Family history of GI malignancy 07/09/2012 08/31/2019 Other specified hypothyroidism 08/19/2006 08/31/2019 ADVANCE DIRECTIVE INFORMATION 2006 08/31/2019 Overview: Information given to patient. DISC DIS [id number] - bulge L3-4, L4-5 02/21/2002 08/31/2019 FAM HX-DIABETES MELLITUS - Dad 01/31/1999 08/31/2019 Mixed dyslipidemia 02/01/1998 9 Overview: Per Lipid Taxonomy. Idiopathic urticaria 020 documented as of this encounter (statuses as of 09/28/2023) Immunizations Name Administration Dates Next Due COVID-19 [...] Not Answered Alcohol Use Standard Drinks/Week Comments Yes 28 (1 standard drink = 0.6 oz pu re alcohol) 4 beer/day PHQ-2 Answer Date Recorded PHQ Adult Total [...] Sign Reading Time Taken Comments Blood Pressure 128/77 09/28/2023 2:00 PM EDT Pulse 74 09/28/2023 2:00 PM EDT Temperature 37.4 C (99.3 F) 09/28/2023 2:00 PM ED T Respiratory Rate - - Oxygen Saturation 92% 09/28/2023 2:00 PM EDT Inhaled Oxygen Concentration - - Weight 92.4 kg (203 lb 12.8 oz) 09/28/2023 2:00 PM EDT Height - - Body Mass Index 29.24 08/25/2023 7:51 AM EST documented in this encounter Progress Notes * Susie Epstein MD - 09/28/2023 2:07 PM EDT Outpatient Consult Note Data Source: Patient, Epic record. Data Source: Patient, Epic record. 09/28/2023 2:07 PM Dylan Owen [id number] 73 year old Patient Encounter: HEMATOLOGY/ONCOLOGY [facility] Cancer Diagnosis: Invasive melanoma diagnosis of left [...] above the subcutis. The invasive component is [place] level V. One dermal mitoses per square [...] about 20 years. He drinks 4-5 cans of beer on daily basis. Family history significant for [...] from the prior specimen from this anatomiclocation ([id number]) as well as information from the current specimen if possible. Certain parameters such as Breslow depth, Apolinar level, and ulceration are often difficult or impossible to accurately determine in excision specimens when a prior sampling/biopsy has been performed. The prior reported T category of pT4a remains unchanged from the original synoptic report for case [id number]. 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 Interval History: He return to clinic for acute visit with complaint of episodes of fever, cough and shortness of breath. He denies any headache, dizziness, blurred vision, chest pain palpitation abdominal pain or distention, bleeding, bruising, nausea, vomiting. LABS/IMAGING: Results for orders placed or performed in visit on 09/28/23 COMPREHENSIVE METABOLIC PANEL Result Value Ref Range BUN 12 6 - 20 mg/dL Creatinine 0.9 0.6 - 1.2 mg/dL Estimated Glomerular Filtration Rate 88 >=60 mL/min Sodium 130 (L) 135 - 146 mmol/L Potassium 4.0 3.5 - 5.1 mmol/L Chloride 95 (L) 98 - 107 mmol/L CO2 24 22 - 32 mmol/L Anion Gap 11 7 - 15 mmol/L Glucose 100 70 - 120 mg/dL Albumin 3.6 (L) 3.8 - 5.0 g/dL AST 94 (H) 10 - 50 U/L Alkaline Phosphatase 119 35 - 130 U/L Bilirubin, Total 1.0 <=1.2 mg/dL Calcium 9.2 8.4 - 10.2 mg/dL Protein 8.0 6.0 - 8.3 g/dL ALT 52 (H) 10 - 50 U/L CBC Result Value Ref Range WBC 5.68 4.00 - 10.80 K/uL RBC 3.92 4.50 - 5.25 M/uL HGB 11.3 (L) 14.0 - 16.8 g/dL HCT 34.4 (L) 40.0 - 48.4 % MCV 87.8 82.0 - 99.5 fL MCH 28.8 27.0 - 34.0 pg MCHC 32.8 32.0 - 36.0 g/dL RDW 14.7 11.5 - 15.5 % PLT 117 (L) 140 - 400 K/uL MPV 10.4 6.6 - 11.1 fL DIFFERENTIAL, AUTOMATED Result Value Ref Range WBC 5.68 4.00 - 10.80 K/uL Neutrophils % 42.9 40.0 - 75.0 % Lymphocytes % 35.4 18.0 - 42.0 % Monocytes % 21.5 (H) 1.0 - 11.0 % Eosinophils % 0.0 0.0 - 6.0 % Basophils % 0.2 0.0 - 2.0 % Absolute Neutrophils 2.44 1.80 - 7.70 K/uL Absolute Lymphocytes 2.01 1.00 - 4.80 K/ul Absolute Monocytes 1.22 (H) 0.00 - 1.10 K/uL Absolute Eosinophils 0.00 0.00 - 0.70 K/uL Absolute Basophils 0.01 0.00 - 0.20 K/uL WBC is normal and hemoglobin is 11.3 with rest of the electrolytes are in acceptable range, mild increase in the LFTs. REVIEW OF SYSTEMS: General: No Fever, chills, night sweats, or weight loss. HEENT: No change in visual acuity, blurred or double vision. No epistaxis, facial pain, nasal discharge or change in hearing. Denies dysphagia, no muscosal ulceration, or sores noted. Cardiovascular: No chest pain, ANDERSON, or palpitations Respiratory: c/o shortness of breath, cough, No hemoptysis, or pleuritic chest pain Gastrointestinal: No abdominal pain, nausea, vomiting, diarrhea, rectal pain or bleeding Genitourinary: Denies Hematuria or dysuria Musculoskeletal: Generalized weakness and fatigue Skin: No skin rash or lesions noted Psychiatric: No vegetative signs of depression Endocrine: [...] Current Outpatient Medications Medication Sig Dispense Refill Metamucil [facility] Fiber 58.12 % Oral Packet (Psyllium) Take 1 Packet by mouth in the morning and 1 Packet before bedtime. Acetaminophen 500 MG Oral Tablet Take 325 mg by mouth every 6 hours as needed for Pain, Moderate orPain, Mild. Apixaban 5 MG Oral Tablet (Eliquis) Take [...] mouth in the morning. 100 Capsule 3 Terbinafine HCl 1 % External Cream (LamISIL AT ATHLETE'S FOOT) Apply to the affected area of the feet twice daily for 14-28 days. 42 g 5 Levothyroxine Sodium 88 MCG Oral Tablet (Levoxyl) Take 1 Tablet by mouth daily first thing in the morning. (at least 30 min prior to breakfast or other meds) 100 Tablet 3 LORazepam 0.5 MG Oral Tablet (Ativan) Take 1 Tablet by mouth every 6 hours as needed for Anxiety. 30 Tablet 0 Ipratropium [place] 0.03 % Nasal Solution (Atrovent) Administer 2 Sprays into nostril in the morning and 2 Sprays before bedtime. 30 mL 3 FISH OIL 1000 MG PO CAPS Take by mouth. 0 0 CENTRUM SILVER PO TABS Take by mouth. METFORMIN HCL ER (OSM) 500 MG PO TB24 Take as directed by study staff 400 Tab 0 Loratadine 10 MG Oral Capsule Take 1 Capsule by mouth in the morning. (Patient not taking: Reportedon 07/14/2023) diphenhydrAMINE HCl 25 MG Oral Capsule Take 1 Capsule by mouth at bedtime. Lisinopril 2.5 MG Oral Tablet (Prinivil) Take 1 Tablet by mouth in the morning. (Patient taking differently: Take 1 Tablet by mouth at bedtime.) 30 Tablet 11 No current facility-administered medications for this visit. Social History Tobacco Use Smoking status: Former Current packs/day: 0.00 Average packs/day: 1.5 packs/day for 21.0 years (31.5 ttl pk-yrs) Types: Cigarettes Start date: 10/04/1969 Quit date: 10/04/1990 Years since quittin.0 Smokeless tobacco: Never Vaping Use Vaping Use: Never used Substance Use Topics Alcohol use: Yes Alcohol/week: 28.0 standard drinks of alcohol Types: 28 12 oz of beer per week Comment: 4 beer/day Drug use: No Review of patient's allergies indicates: Allergen Reactions Sulfamethoxazole-Trimethoprim Fever and Other (Please comment) PHYSICAL EXAMINATION: General Appearance: Healthy appearing patient in no acute distress BP 128/77 (BP Site: Left Arm, BP Position: Sitting, BP Cuff Size: Regular) | Pulse 74 | Temp 37.4 C (99.3 F) (Tympanic) | Wt 92.4 kg (203 lb 12.8 oz) | SpO2 92% | BMI 29.24 kg/m | BSA 2.14 m Vitals reviewed. HEENT: No oral or [...] meningioma. Currently patient is receiving adjuvant Keytruda. He is complaining of increasing shortness of breath, low-grade fever and cough. On examination lungs are clear. Currently he is on Keytruda and there is a possibility of the toxicity including pneumonitis. There was also increase in the liver enzymes. I will get the CT scan of chest abdomen pelvis to rule out any infection or pneumonitis. Discussed with the patient and about the diagnosis and reviewed all the available blood test result with him. PLAN: CT chest abdomen pelvis as soon as possible. Patient will keep the appointment on 10/06/23 for the follow-up The patient voiced understanding of all of [...] in this encounter Nursing Notes * Teri Black MED ASSIST - 09/28/2023 2:02 PM EDT Patient identifed by name and birthdate Do you have any concerns about pain management for today's visit? No Living Will or Advance Directive for Health Care as noted on the problem list. [facility] is a way you can talk to your provider on line through e-mail. Would you like to sign up? I can activate it for you? ALREADY ACTIVE Filed Vitals: 09/28/23 1400 BP: 128/77 Pulse: 74 Temp: 37.4 C (99.3 F) TempSrc: Tympanic SpO2: 92% Weight: 92.4 kg (203 lb 12.8 oz) Patient was instructed to not get [...] Care Team (Late st Contact Info) Description 09/29/2023 2:30 PM EDT Imaging Radiology [facility] [address] 10/02/2023 10:10 AM EDT Pharmacy Family Practice 65 [facility] [address] [place] [phone] College, Pharmacist [address] [place] [address] 10/02/2023 10:40 AM EDT Office Visit Family Practice 65 [facility] [address] [place] [address] Jocelyn Bro DO 293 [facility], [place] [address] 10/06/2023 9:10 AM EDT Laboratory Laboratory [facility] [address] [place] [phone] [place], Lab [facility] 200 [facility] [place] [address] 10/06/2023 9:30 AM EDT Office Visit Hematology/Oncology [facility] 200 [facility] [place] [phone] Susie Epstein MD [address] [place], [place] [address] 10/06/2023 10:00 AM EDT [facility] [address] [place] [phone] 03/17/2024 8:20 AM EDT Office Visit Family Practice [facility] 132 [facility] [place] [address] Martha Gr CRNP 132 [facility] [place] [address] 09/15/2024 10:00 AM EDT Office Visit Family Practice [facility] [address] [facility] [place] [address] Sami Carson [place], [address] [place] [address] Scheduled Orders Name Type Priority Associated Diagnoses Orde r Schedule CT CHEST/ABDOMEN/PELVIS WITH IV CONTRAST WITH ORAL CONTRAST Medical Imaging Routine Malignant melanoma of face (HCC) Expected: 09/29/2023, Expires: 10/27/2024 Scheduled Procedures Name Priority Associated Diagnoses Date/Ti [...] 08/04/2023, Additional history exists GFR 09/27/2024 09/28/2023, 2 11/2023, 08/25/2023, Additional history exists COLONOSCOPY-EVERY 5 YRS [...] this encounter Medical Devices Implanted Type Area Senior Procurement Manager Device Identifier Shelf Expiration Date Model / Serial / Lot Port Implant W/8f Poly Cath - [id number] Implanted:Qty : 1 on 04/22/2023 by Kaiden Armenta MD at OR [facility] Right: Chest CR BARD : PERIPHERAL VASCULAR [id number] 11/19/2024 [id number] / / [id number] documented as of this encounter Visit Diagnoses Diagnosis Malignant melanoma of face (HCC)- Primary Malignant melanoma of skin of other and unspecified parts of face documented in this encounter Advance Directives Documents on File Type Date Recorded Patient Catheterization Laboratory Technician Expl anation Advance Directives and Living Will 09/07/2017 LIVING WILL Latest Code Status on File Code Status Date Activated Date Inactivated Comments Full Code 03/04/2023 7:10 AM 03/04/2023 3:47 PM Question Answer Comments Discussion of Advance Directives occurred with: Not Discussed due to patient's condition Care Teams Executive Services Administrator Relationship Specialty Start Date End Date Carson Gallardo DO [address] [place] [address] PCP - General Family Medicine 07/18/19 documented as of this encounter"
--- OUTSIDE RECORDS SUMMARY | 2023-10-08 03:54 | External Medical Summary ---
Author Name Unknown Address Unknown Organization K09[facility] [place] [place] [address] Laboratory Report Ordering Provider Test Date Status CHRIS MCCRAY 09/28/2023 13:06:37 Final Observation Date Value Abnormality Reference (Units ) Status SYNC LEUKOCYTES IN BLOOD BY AUTOMATED COUNT 09/28/2023 13:06:37 5.68 4.00-10.80 (K/uL) Final Segs 09/28/2023 13:06:37 42.9 40.0-75.0 (%) Final Lymphs % 09/28/2023 13:06:37 35.4 18.0-42.0 (%) Final Monos 09/28/2023 13:06:37 21.5 Above high normal 1.0-11.0 (%) Final Eosinophils 09/28/2023 13:06:37 0.0 0.0-6.0 (%) Final Basos 09/28/2023 13:06:37 0.2 0.0-2.0 (%) Final Absolute Segs 09/28/2023 13:06:37 2.44 1.80-7.70 (K/uL) Final Lymphs, absolute 09/28/2023 13:06:37 2.01 1.00-4.80 (K/ul) Final Monos, Abs 09/28/2023 13:06:37 1.22 Above high normal 0.00-1.10 (K/uL) Final Eos, Abs 09/28/2023 13:06:37 0.00 0.00-0.70 (K/uL) Final Basos, Abs 09/28/2023 13:06:37 0.01 0.00-0.20 (K/uL) Final Performing Location [facility] [place] [address]
--- OUTSIDE RECORDS SUMMARY | 2023-10-08 03:54 | External Medical Summary | Summary of Care ---
Author Name Unknown Organization [facility] Address [address] [place] [address] Phone [phone] Care Team Providers Care Diet Kitchen Cook Name Role Phone Carson Gallardo Primary Care Provider Reason for Visit * Reason Onset Date Comments Advice 09/28/2023 Red flag Fever-M emon Encounter Details Date Type Department Care Team (Late st Contact Info) Description 09/28/2023 Telephone Hematology/Oncology, [facility] [address] [place] [address] Susie Epstein MD [address] [place] [address] Advice (Red flag Fever-Lucian) Allergies Active Allergy Reactions Criticality Noted Date Comments Sulfamethoxazole-Trimethop rim Fever,Other (Please comment) 09/13/2019 documented as of this encounter (statuses as of 09/28/2023) Medications Medication Sig Dispensed Refills Start Date End Date Status FISH OIL 1000 MG PO CAPS Take by mouth. 0 0 2006 Active CENTRUM SILVER PO TABS Take by mouth. 0 Active METFORMIN HCL ER (OSM) 500 MG PO [id number]:Me tabolon Quantose IR Research Study*[id number] Take as directed by study staff 400 [...] in the morning. 100 Capsule 06/25/2023 Active Terbinafine HCl 1 % External [...] Anxiety. 30 Tablet 0 08/19/2023 Active Ipratropium [place] 0.03 % Nasal Solution (Atrovent) Administer 2 [...] fasting glucose 04/11/201404/2020 Metabolon Quantose IR Resear Study*[id number] 01/20/2014 04/10/2014 Overview: METABOLON QUANTOSE IR STUDY. PROJECT: #[id number], GARBAGE TRUCK DRIVER: Tarun Nieto MD/ Dejuan Magdaleno MD. SUMMARY: The Use of a Novel Insulin Resistance Test as a Monitoring Indicator of Glycemic Control in Prediabetics and Diabetics treated with metformin combined with lifestyle intervention. CONTACTS: During normal business hours, contact Lily Burgos RN, BSN at ; after hours Foundry Worker Apprentice via the [facility] centrifugal operator Impotence of organic origin 01/09/2014 08/31/2019 Epididymitis 01/09/2014 03/09/2017 Elevated prostate specific antigen (PSA) 01/09/2014 01/09/2014 Dry eye syndrome 12/31/2012 08/31/2019 Low testosterone 12/31/2012 08/31/2019 Family history of GI malignancy 07/09/2012 08/31/2019 Other specified hypothyroidism 08/19/2006 08/31/2019 ADVANCE DIRECTIVE INFORMATION 2006 08/31/2019 Overview: Information given to patient. DISC DIS [id number] - bulge L3-4, L4-5 02/21/2002 08/31/2019 FAM [...] Tobacco: Never Alcohol Use Standard Drinks/Week Comments Yes 28 [...] on file documented as of this encounter Miscellaneous Notes * Telephone Encounter - Anjana Soto RN - 09/28/2023 8:30 AM EDT Called patient. He states that this is the 10th day of fevers- Sat was 101.7, yesterday and today 101.1 when he woke up. Tylenol controls it, but then around 4/4:30pm every day he starts to feel the fever starting to come back and then has to start taking tylenol again. When he has a fever, he alsohas a headache. No changes to bowel patterns, no urinary symptoms. Patient states that he does have a dry cough, he thinks this started 2-3 days ago. Denies SOB. States that his lungs "feel clear", does not feel like he has chest congestion. If he takes a deep breath he does feel achiness in his chest. Advised patient that I would review with Dr Epstein and call him back. He verbalized understanding. * Telephone Encounter - Emelia Chin OSA - 09/28/2023 8:23 AM EDT What is the reason for call? Fever of 101.1 What Clinic is the patient trying to reach? [facility]- Is the clinic open? Yes- Other: transfer to specialty Call was warm transferred to Anjana documented in this encounter Plan of Treatment Upcoming Encounters Date Type Department Care Team (Late st Contact Info) Description 10/02/2023 10:10 AM EDT Pharmacy Family Practice 65 [facility] [address] [place] [phone] College, Pharmacist [address] [address] 10/02/2023 10:40 AM EDT Office Visit Family Practice 65 [facility] [address] [place] [phone] Jocelyn Bro DO [address] [place] [address] 10/06/2023 9:10 AM EDT Laboratory Laboratory [facility] [address] [place] [phone] [facility] [address] [facility] [place] [address] 10/06/2023 9:30 AM EDT Office Visit Hematology/Oncology [facility] [place] [address] [place] [phone] Susie Epstein MD [address] [place] [address] 10/06/2023 10:00 AM EDT Hem/Onc Treatment [facility] [place] [facility] [phone] 03/17/2024 8:20 AM EDT Office Visit [facility] [address] [place] [address] Martha Gr CRNP [address] [place] [address] 09/15/2024 10:00 AM EDT Office Visit [facility] [address] [place] [address] Carson Gallardo DO [address] [facility] [place] [address] Scheduled Procedures Name Priority Associated Diagnoses Date/Ti [...] 024, 12/11/2022, 05/28/2022, Additional history exists GFR 09/14/2024 09/15/2023, 03/0 10/2023, 08/04/2023, Additional history exists TSH 09/14/2024 09/15/2023, 030 10/2023, 08/04/2023, Additional history exists COLONOSCOPY-EVERY 5 YRS AGES [...] this encounter Medical Devices Implanted Type Area Turntable Operator Device Identifier Shelf Expiration Date Model / Serial / Lot Port Implant W/8f Poly Cath - [id number] Implanted:Qty : 1 on 04/22/2023 by Kaiden Armenta MD at OR [facility] Right: Chest CR BARD : PERIPHERAL VASCULAR [id number] 11/19/2024 [id number] / / [id number] documented as of this encounter Advance Directives Documents on File Type Date Recorded Patient Alcohol Still Operator Expl anation Advance Directives and Living Will 09/07/2017 LIVING WILL Latest Code Status on File Code Status Date Activated Date Inactivated Comments Full Code 03/04/2023 7:10 AM 03/04/2023 3:47 PM Question Answer Comments Discussion of Advance Directives occurred with: Not Discussed due to patient's condition Care Teams Diet Kitchen Cook Relationship Specialty Start Date End Date Carson Gallardo DO [address] [place] [address] PCP - General Family Medicine 07/18/19 documented as of this encounter
--- OUTSIDE RECORDS SUMMARY | 2023-10-08 03:54 | External Medical Summary ---
Author Name Unknown Address Unknown Organization K09[facility] [place] [address] Laboratory Report Ordering Provider Test Date Status CHRIS MCCRAY 09/28/2023 13:06:37 Final Observation Date Value Abnormality Reference (Units ) Status WBC, Total 09/28/2023 13:06:37 5.68 4.00-10.8 0 (K/uL) Final RBC 09/28/2023 13:06:37 3.92 4.50-5.25 (M/uL) Final Hemoglobin 09/28/2023 13:06:37 11.3 Below low normal 14 .0-16.8 (g/dL) Final HCT 09/28/2023 13:06:37 34.4 Below low normal 40. 0-48.4 (%) Final MCV 09/28/2023 13:06:37 87.8 82.0-99.5 (fL) Final MCH 09/28/2023 13:06:37 28.8 27.0-34.0 (pg) Final MCHC 09/28/2023 13:06:37 32.8 32.0-36.0 (g/dL) Final RDW 09/28/2023 13:06:37 14.7 11.5-15.5 (%) Final Platelets 09/28/2023 13:06:37 117 Below low normal 140 -400 (K/uL) Final MPV 09/28/2023 13:06:37 10.4 6.6-11.1 ( fL) Final Performing Location [facility] [place] [address]
--- OUTSIDE RECORDS SUMMARY | 2023-10-08 03:54 | External Medical Summary | Summary of Care ---
Author Name Unknown Organization [facility] Address [address] [place] [address] Phone [phone] Care Team Providers Care Yarn Texture Machine Operator Name Role Phone Carson Gallardo Primary Care Provider Reason for Visit * Reason Onset Date Comments Advice 09/28/2023 Red flag Fever-M emon Encounter Details Date Type Department Care Team (Late st Contact Info) Description 09/28/2023 Telephone Hematology/Oncology, [facility] [address] [place] [address] Susie Epstein MD [address] [place] [address] Advice (Red flag Fever-Lucian) Allergies Active Allergy [...] METFORMIN HCL ER (OSM) 500 MG PO [id number]:Me tabolon Quantose IR Research Study*[id number] Take as directed by study staff 400 [...] Anxiety. 30 Tablet 0 08/19/2023 Active Ipratropium [place] 0.03 % Nasal Solution (Atrovent) Administer 2 [...] fasting glucose 04/11/201404/2020 Metabolon Quantose IR Resear Study*[id number] 01/20/2014 04/10/2014 Overview: METABOLON QUANTOSE IR STUDY. PROJECT: #[id number], BONE CHAR KILN OPERATOR: Tarun Nieto MD/ Dejuan Magdaleno MD. SUMMARY: The Use of a Novel Insulin Resistance Test as a Monitoring Indicator of Glycemic Control in Prediabetics and Diabetics treated with metformin combined with lifestyle intervention. CONTACTS: During normal business hours, contact Lily Burgos RN, BSN at ; after hours Commercial Litigation Attorney via the [facility] high lift mule operator Impotence of organic origin 01/09/2014 08/31/2019 Epididymitis 01/09/2014 03/09/2017 Elevated prostate specific antigen (PSA) 01/09/2014 01/09/2014 Dry eye syndrome 12/31/2012 08/31/2019 Low testosterone 12/31/2012 08/31/2019 Family history of GI malignancy 07/09/2012 08/31/2019 Other specified hypothyroidism 08/19/2006 08/31/2019 ADVANCE DIRECTIVE INFORMATION 2006 08/31/2019 Overview: Information given to patient. DISC DIS [id number] - bulge L3-4, L4-5 02/21/2002 08/31/2019 FAM [...] Seasonal Influenza Virus Vac cine, Unspecified Formulation 05/06/2023,03/18/2021,03/27/2020,02/21,03/11/2018,03/09/2017,02/26/20 16,03/21/2014,03/31/2013,05/05/2012,1 ,07/03/2010,06/04/2009,05/19 Seasonal Influenza, PF, 6 M & above, IM , (FluLaval or Fluzone) 03/11/2018 Seasonal Influenza, Quadriva lent Hd (Fluzone Hd) 04/08/2022 Seasonal Influenza, Quadriva lent Hd, 65+ Yrs 03/27/2020 Seasonal Influenza, Quadriva lent, No Preserve, IM 03/09/2017,02/26/2016 Seasonal Influenza, Split, I IV3, With Preserve, Inj 02/23/2015,03/21/2014,03/31/2013,04/22,04/03/2011,07/03/2010,06/04/20 09,05/19/2008 Seasonal Influenza, Trivalen t, Adjuvanted, 65+ yrs 03/14/2019 TD - Tetanus/Diptheria (ADULT) 02/06/2000 0 02/05/2010 TDAP (age 11 and older)(Adacel) 06/12/2020 Varicella [...] Miscellaneous Notes * Telephone Encounter - Anjana oSto RN - 09/28/2023 9:28 AM EDT Reviewed with Dr Epstein. Would like patient to have lab work, will get CT C/A/P as well. Called patient, offered appts for today- he accepted. Scheduling: please add appts for today - labs "CBCd, CMP" at 1:30pm - Dr Epstein at 2pm Patient is aware. Thanks! * Telephone Encounter - Anjana Soto RN [...] 10:10 AM EDT Pharmacy Family Practice [address], [place] [address] [place] [address] College, Pharmacist 65 [facility] 293 [place] [address] 10/02/2023 10:40 AM EDT Office Visit [address] 293 [facility], [place] [address] Jocelyn Bro DO 293 [place] [address] 10/06/2023 9:10 AM EDT Laboratory Laboratory [facility] [address] [place] [phone] [place], [address] Scenery [address] [place] [address] 10/06/2023 9:30 AM EDT Office Visit Hematology/Oncology [facility] [address] [place] [address] Susie Epstein MD [address] [place] [address] 10/06/2023 10:00 AM EDT Hem/Onc Treatment Hematology/Oncology Treatment, [place] [address] [place] [phone] 03/17/2024 8:20 AM EDT Office Visit [facility] [address] [place] [address] Martha Gr CRNP [address] [place] [address] 09/15/2024 10:00 AM EDT Office Visit [facility] [address] [place] [address] Carson Gallardo DO [address] [place] [address] Scheduled Procedures Name Priority Associated Diagnoses Date/Ti [...] 08/04/2023, Additional history exists TSH 09/14/2024 09/15/2023, 03/0 10/2023, 08/04/2023, Additional history exists COLONOSCOPY-EVERY 5 [...] this encounter Medical Devices Implanted Type Area Precinct Captain Device Identifier Shelf Expiration Date Model / Serial / Lot Port Implant W/8f Poly Cath - [id number] Implanted:Qty : 1 on 04/22/2023 by Kaiden Armenta MD at OR [facility] Right: Chest CR BARD : PERIPHERAL VASCULAR [id number] 11/19/2024 [id number] / / [id number] documented as of this encounter Advance Directives Documents on File Type Date Recorded Patient Medicare Specialist Expl anation Advance Directives and Living Will 09/07/2017 LIVING WILL Latest Code Status on File Code Status Date Activated Date Inactivated Comments Full Code 03/04/2023 7:10 AM 03/04/2023 3:47 PM Question Answer Comments Discussion of Advance Directives occurred with: Not Discussed due to patient's condition Care Teams Yarn Texture Machine Operator Relationship Specialty Start Date End Date Carson Gallardo DO 132 [place] [address] PCP - General Family Medicine 07/18/19 documented as of this encounter
--- OUTSIDE RECORDS SUMMARY | 2023-10-08 03:54 | External Medical Summary | Summary of Care ---
Author Name Unknown Organization [facility] Address [address] [place] [address] Phone [phone] Care Team Providers Care Yard Foreman Name Role Phone Carson Gallardo Primary Care Provider Reason for Visit * Reason Onset Date Comments Advice 09/28/2023 Red flag Fever-M emon Encounter Details Date Type Department Care Team (Late st Contact Info) Description 09/28/2023 Telephone Hematology/Oncology, [facility] [address] [place] [address] Susie Epstein MD [address] [place] [address] Advice (Red flag Fever-Lucian) Allergies Active Allergy [...] METFORMIN HCL ER (OSM) 500 MG PO [id number]:Me tabolon Quantose IR Research Study*[id number] Take as directed by study staff 400 [...] Anxiety. 30 Tablet 0 08/19/2023 Active Ipratropium [place] 0.03 % Nasal Solution (Atrovent) Administer 2 [...] fasting glucose 04/11/201404/2020 Metabolon Quantose IR Resear Study*[id number] 01/20/2014 04/10/2014 Overview: METABOLON QUANTOSE IR STUDY. PROJECT: #[id number], WASTEWATER TREATMENT OPERATOR: Tarun Nieto MD/ Dejuan Magdaleno MD. SUMMARY: The Use of a Novel Insulin Resistance Test as a Monitoring Indicator of Glycemic Control in Prediabetics and Diabetics treated with metformin combined with lifestyle intervention. CONTACTS: During normal business hours, contact Lily Burgos RN, BSN at ; after hours Senior Customer Service Representative via the [facility] plant operator control room operator Impotence of organic origin 01/09/2014 08/31/2019 Epididymitis 01/09/2014 03/09/2017 Elevated prostate specific antigen (PSA) 01/09/2014 01/09/2014 Dry eye syndrome 12/31/2012 08/31/2019 Low testosterone 12/31/2012 08/31/2019 Family history of GI malignancy 07/09/2012 08/31/2019 Other specified hypothyroidism 08/19/2006 08/31/2019 ADVANCE DIRECTIVE INFORMATION 2006 08/31/2019 Overview: Information given to patient. DISC DIS [id number] - bulge L3-4, L4-5 02/21/2002 08/31/2019 FAM [...] encounter Miscellaneous Notes * Telephone Encounter - Taz Bragg OSA - 09/28/2023 1:09 PM EDT Apt added by taz Dumas Per the notes below * Addendum Note - Sha Soto RN - 09/28/2023 9:31 AM EDTAddended by: SHA SOTO on: 09/28/2023 09:31 AM Modules accepted: Orders * Telephone Encounter - Sha Soto RN - 09/28/2023 9:28 AM EDT Reviewed with Dr Epstein. Would like patient to have lab work, will get CT C/A/P as well. Called patient, offered appts for today- he accepted. Scheduling: please add appts for today - labs "CBCd, CMP" at 1:30pm - Dr Epstein at 2pm Patient is aware. Thanks! * Telephone Encounter - Sha Soto RN - 09/28/2023 8:30 AM EDT [...] to specialty Call was warm transferred to [facility] documented in this encounter Plan of Treatment Upcoming Encounters Date Type Department Care Team (Late st Contact Info) Description 09/28/2023 2:00 PM EDT Office Visit Hematology/Oncology [place] [address] [place] [address] [place] [phone] Susie Epstein MD [address] [place] [address] 10/02/2023 10:10 AM EDT Pharmacy Family Practice 65 [facility] 293 [place] [phone] [place], Pharmacist [address] [place] [address] 10/02/2023 10:40 AM EDT Office Visit Family Practice 65 [facility] 293 [place] [address] Jocelyn Bro DO 293 [place] [address] 10/06/2023 9:10 AM EDT Laboratory Laboratory [facility] [place] [address] [place] [phone] [address] [facility] [place] [address] 10/06/2023 9:30 AM EDT Office Visit Hematology/Oncology [facility] [place] [address] [place] [address] Susie Epstein MD [address] [place] [address] 10/06/2023 10:00 AM EDT Hem/Onc Treatment Hematology/Oncology Treatment, [place] [address] [place], [place] [address] 03/17/2024 8:20 AM EDT Office Visit [facility] [address] [place] [address] Martha Gr CRNP [address] [place] [address] 09/15/2024 10:00 AM EDT Office Visit [facility] [address] [place] [address] Carson Gallardo DO [address] [facility] [place] [address] Pending Results Name Type Priority Associated Diagnoses Date /Time CBC WITH WBC DIFFERENTIAL Lab STAT Malignant melanoma of face (HCC) 09/28/2023 1:06 PM EDT COMPREHENSIVE METABOLIC PANEL Lab STAT Malignant melanoma of face (HCC) 09/28/2023 1:06 PM EDT Scheduled Orders Name Type Priority Associated Diagnoses Orde r Schedule CBC WITH WBC DIFFERENTIAL Lab STAT Malignant melanoma of face (HCC) Expected: 09/28/2023 (Approximate), Expires: 09/27/2024 COMPREHENSIVE METABOLIC PANEL Lab STAT Malignant melanoma of face (HCC) Expected: 09/28/2023 (Approximate), Expires: 09/27/2024 Scheduled Procedures Name Priority Associated Diagnoses Date/Ti [...] this encounter Medical Devices Implanted Type Area Water Proofer Device Identifier Shelf Expiration Date Model / Serial / Lot Port Implant W/8f Poly Cath - [id number] Implanted:Qty : 1 on 04/22/2023 by Kaiden Armenta MD at OR [facility] Right: Chest CR BARD : PERIPHERAL VASCULAR [id number] 11/19/2024 [id number] / / [id number] documented as of this encounter Visit Diagnoses Diagnosis Malignant melanoma of face (HCC)- Primary Malignant melanoma of skin of other and unspecified parts of face documented in this encounter Advance Directives Documents on File Type Date Recorded Patient Brush Head Maker Expl anation Advance Directives and Living Will 09/07/2017 LIVING WILL Latest Code Status on File Code Status Date Activated Date Inactivated Comments Full Code 03/04/2023 7:10 AM 03/04/2023 3:47 PM Question Answer Comments Discussion of Advance Directives occurred with: Not Discussed due to patient's condition Care Teams Yard Foreman Relationship Specialty Start Date End Date Carson Gallardo DO [address] [place] [address] PCP - General Family Medicine 07/18/19 documented as of this encounter
--- OUTSIDE RECORDS SUMMARY | 2023-10-08 03:54 | External Medical Summary | Summary of Care ---
Author Name Unknown Organization [facility] Address [address] [place] [address] Phone [phone] Care Team Providers Care Mate First Name Role Phone Carson Gallardo Primary Care Provider Reason for Visit * Reason Comments Outpatient Testing Encounter Details Date Type Department Care Team (Late st Contact Info) Description 09/28/2023 12:50 PM EDT Laboratory Laboratory [facility] [address] [place] [phone] [place], Lab Scenery [address] [place] [address] Malignant melanoma of face (HCC) Allergies Active [...] METFORMIN HCL ER (OSM) 500 MG PO [id number]:Me tabolon Quantose IR Research Study*[id number] Take as directed by study staff 400 [...] Anxiety. 30 Tablet 0 08/19/2023 Active Ipratropium [place] 0.03 % Nasal Solution (Atrovent) Administer 2 [...] Impaired fasting glucose 04/11/201404/2020 [facility]on [facility][id number] 01/20/2014 04/10/2014 Overview: METABOLON QUANTOSE IR STUDY. PROJECT: #[id number], RN PEDIATRIC ICU: Tarun Nieto MD/ Dejuan Magdaleno MD. SUMMARY: The Use of a Novel Insulin Resistance Test as a Monitoring Indicator of Glycemic Control in Prediabetics and Diabetics treated with metformin combined with lifestyle intervention. CONTACTS: During normal business hours, contact Lily Burgos RN, BSN at ; after hours Operation Research Analyst via the [facility] filter operator Impotence of organic origin 01/09/2014 08/31/2019 Epididymitis 01/09/2014 03/09/2017 Elevated prostate specific antigen (PSA) 01/09/2014 01/09/2014 Dry eye syndrome 12/31/2012 08/31/2019 Low testosterone 12/31/2012 08/31/2019 Family history of GI malignancy 07/09/2012 08/31/2019 Other specified hypothyroidism 08/19/2006 08/31/2019 ADVANCE DIRECTIVE INFORMATION 2006 08/31/2019 Overview: Information given to patient. DISC DIS [id number] - bulge L3-4, L4-5 02/21/2002 08/31/2019 FAM [...] 09/28/2023 2:00 PM EDT Office Visit Hematology/Oncology [place] [address] [place] [address] Susie Epstein MD [address] [place] [address] Arrived 10/02/2023 10:10 AM EDT Pharmacy Family Practice 65 [facility] 293 [facility] [place] [address] College, Pharmacist [address] [place] [address] 10/02/2023 10:40 AM EDT Office Visit Family Practice [address] [place] [address] 293 [facility] [place] [address] Jocelyn Bro DO 293 [facility] [place] [address] 10/06/2023 9:10 AM EDT Laboratory Laboratory [facility] 200 [facility] [place] [phone] [place], Lab [facility] 200 [facility] [place] [address] 10/06/2023 9:30 AM EDT Office Visit Hematology/Oncology [facility] [place] 200 [facility] [place] [phone] Susie Epstein MD 200 [facility] [place], [place] [address] 10/06/2023 10:00 AM EDT [facility] 200 [facility], [place] [phone] 03/17/2024 8:20 AM EDT Office Visit Family [facility] 132 [facility] [place] [address] Martha Gr CRNP 132 [facility] [place] [address] 09/15/2024 10:00 AM EDT Office Visit Family Practice [facility] [address] [place] [address] Carson Gallardo, [address] [place] [address] Pending Results Name Type Priority Associated Diagnoses Date /Time COMPREHENSIVE METABOLIC PANEL Lab STAT Malignant melanoma of face (HCC) 09/28/2023 1:06 PM EDT Scheduled Procedures Name Priority Associated Diagnoses [...] this encounter Medical Devices Implanted Type Area Tarper Device Identifier Shelf Expiration Date Model / Serial / Lot Port Implant W/8f Poly Cath - [id number] Implanted:Qty : 1 on 04/22/2023 by Kaiden Armenta MD at OR [facility] Right: Chest CR BARD : PERIPHERAL VASCULAR [id number] 11/19/2024 [id number] / / [id number] documented as of this encounter Procedures Procedure Name Priority Date/Time Associated Diagnosis Comments DIFFERENTIAL, AUTOMATED STAT 09/28/2023 1:06 PM EDT Malignant melanoma of face (HCC) CBC STAT 09/28/2023 1:06 PM EDT Malignant melanoma of face (HCC) CBC STAT 09/28/2023 1:06 PM EDT Malignant melanoma of face (HCC) documented in this encounter Results * (ABNORMAL) DIFFERENTIAL, AUTOMATED (09/28/2023 1:06 PM EDT) WBC 5.68 4.00 - 10.80 K/uL 09/28/2023 1:17 PM EDT LABORATORY [place] 56-02 Neutrophils % 42.9 40.0 - 75.0 % 09/28/2023 1:17 PM EDT LABORATORY [place] 56-02 Lymphocytes % 35.4 18.0 - 42.0 % 09/28/2023 1:17 PM EDT [facility] 56 Monocytes % 21.5(H) 1.0 - 11.0 % 09/28/2023 1:17 PM EDT [facility] 56 Eosinophils % 0.0 0.0 - 6.0 % 09/28/2023 1:17 PM EDT [facility] 56 Basophils % 0.2 0.0 - 2.0 % 09/28/2023 1:17 PM EDT [facility] 56 Absolute Neutrophils 2.44 1.80 - 7.70 K/uL 09/28/2023 1:17 PM EDT [facility] 56 Absolute Lymphocytes 2.01 1.00 - 4.80 K/ul 09/28/2023 1:17 PM EDT [facility] 56 Absolute Monocytes 1.22(H) 0.00 - 1.10 K/uL 09/28/2023 1:17 PM EDT [facility] 56 Absolute Eosinophils 0.00 0.00 - 0.70 K/uL 09/28/2023 1:17 PM EDT [facility] 5602 Absolute Basophils 0.01 0.00 - 0.20 K/uL 09/28/2023 1:17 PM EDT [facility] 5602 Blood Venous blood specimen / Unknown Venipuncture / Unknown 09/28/2023 1:06 PM EDT 09/28/2023 1:06 PM EDT Susie Epstein MD LAB BLOOD ORDERA BLES [facility] 56 200 [place] [address] * (ABNORMAL) CBC (09/28/2023 1:06 PM EDT) WBC 5.68 4.00 - 10.80 K/uL 09/28/2023 1:17 PM EDT [facility] 56- RBC 3.92 4.50 - 5.25 M/uL 09/28/2023 1:17 PM EDT [facility] 56- HGB 11.3(L) 14.0 - 16.8 g/dL 09/28/2023 1:17 PM EDT [facility] 56 HCT 34.4(L) 40.0 - 48.4 % 09/28/2023 1:17 PM EDT [facility] 56 MCV 87.8 82.0 - 99.5 fL 09/28/2023 1:17 PM EDT [address] MCH 28.8 27.0 - 34.0 pg 09/28/2023 1:17 PM EDT [address] MCHC 32.8 32.0 - 36.0 g/dL 09/28/2023 1:17 PM EDT [address] RDW 14.7 11.5 - 15.5 % 09/28/2023 1:17 PM EDT [address] PLT 117(L) 140 - 400 K/uL 09/28/2023 1:17 PM EDT [address] MPV 10.4 6.6 - 11.1 fL 09/28/2023 1:17 PM EDT [address] Blood Venous blood specimen / Unknown Venipuncture / Unknown 09/28/2023 1:06 PM EDT 09/28/2023 1:06 PM EDT Susie Epstein MD LAB BLOOD ORDERA BLES [facility] [address] [place] [address] documented in this encounter Visit Diagnoses Diagnosis Malignant melanoma of face (HCC) Malignant melanoma of skin of other and unspecified parts of face documented in this encounter Advance Directives Documents on File Type Date Recorded Patient Hardboard Panel Printer Expl anation Advance Directives and Living Will 09/07/2017 LIVING WILL Latest Code Status on File Code Status Date Activated Date Inactivated Comments Full Code 03/04/2023 7:10 AM 03/04/2023 3:47 PM Question Answer Comments Discussion of Advance Directives occurred with: Not Discussed due to patient's condition Care Teams Mate First Relationship Specialty Start Date End Date Carson Gallardo DO [address] [place] [address] [place] [address] PCP - General Family Medicine 07/18/19 documented as of this encounter
--- OUTSIDE RECORDS SUMMARY | 2023-10-08 03:54 | External Medical Summary | Summary of Care ---
Author Name Unknown Organization [facility] Address [address] [place] [address] Phone [phone] Care Team Providers Care Compressor Operator Adjuster Name Role Phone Carson Gallardo Primary Care Provider Reason for Visit * Reason Onset Date Comments Advice 09/28/2023 Red flag Fever-M emon Encounter Details Date Type Department Care Team (Late st Contact Info) Description 09/28/2023 Telephone Hematology/Oncology, [facility] [address] [place] [address] Susie Epstein MD 200 [place] [address] Advice (Red flag Fever-Lucian) Allergies Active Allergy [...] METFORMIN HCL ER (OSM) 500 MG PO [id number]:Me tabolon Quantose IR Research Study*[id number] Take as directed by study staff 400 [...] Anxiety. 30 Tablet 0 08/19/2023 Active Ipratropium [place] 0.03 % Nasal Solution (Atrovent) Administer 2 [...] fasting glucose 04/11/201404/2020 Metabolon Quantose IR Resear Study*[id number] 01/20/2014 04/10/2014 Overview: METABOLON QUANTOSE IR STUDY. PROJECT: #[id number], SENIOR ASIC ENGINEER: Tarun Niteo MD/ Dejuan Magdaleno MD. SUMMARY: The Use of a Novel Insulin Resistance Test as a Monitoring Indicator of Glycemic Control in Prediabetics and Diabetics treated with metformin combined with lifestyle intervention. CONTACTS: During normal business hours, contact Lily Burgos RN, BSN at ; after hours Book Illustrator via the [facility] stereoplotter operator Impotence of organic origin 01/09/2014 08/31/2019 Epididymitis 01/09/2014 03/09/2017 Elevated prostate specific antigen (PSA) 01/09/2014 01/09/2014 Dry eye syndrome 12/31/2012 08/31/2019 Low testosterone 12/31/2012 08/31/2019 Family history of GI malignancy 07/09/2012 08/31/2019 Other specified hypothyroidism 08/19/2006 08/31/2019 ADVANCE DIRECTIVE INFORMATION 2006 08/31/2019 Overview: Information given to patient. DISC DIS [id number] - bulge L3-4, L4-5 02/21/2002 08/31/2019 FAM [...] as of this encounter Miscellaneous Notes * Addendum Note - Sha Soto RN [...] to specialty Call was warm transferred to [facility] documented in this encounter Plan of Treatment Upcoming Encounters Date Type Department Care Team (Late st Contact Info) Description 10/02/2023 10:10 AM EDT Pharmacy Family Practice 65 [facility] 293 [place] [phone] [place], Pharmacist 65 [facility] 293 [place] [address] 10/02/2023 10:40 AM EDT Office Visit Family Practice [address] [place] [address] [place] [phone] Jocelyn Bro, 293 [place] [address] 10/06/2023 9:10 AM EDT Laboratory Laboratory [facility] [address] [place] [phone] [facility] Lab [facility] 200 [facility] [place] [address] 10/06/2023 9:30 AM EDT Office Visit Hematology/Oncology [facility] [place] [address] [place] [phone] Susie Epstein MD 200 [facility] [place] [address] 10/06/2023 10:00 AM EDT Hem/Onc Treatment [facility]ematology[facility]cology [facility], [place] [facility] [phone] 03/17/2024 8:20 AM EDT Office Visit Family Practice [facility] [address] [place] [address] Martha Gr CRNP 132 [facility] [place] [address] 09/15/2024 10:00 AM EDT Office Visit Family [facility] [address] [place] [address] Carson Gallardo DO [address] [place] [address] Scheduled Orders Name Type Priority Associated Diagnoses [...] this encounter Medical Devices Implanted Type Area Clock And Watch Hands Painter Device Identifier Shelf Expiration Date Model / Serial / Lot Port Implant W/8f Poly Cath - [id number] Implanted:Qty : 1 on 04/22/2023 by Kaiden Armenta MD at [facility] Right: Chest CR BARD : PERIPHERAL VASCULAR [id number] 11/19/2024 [id number] / / [id number] documented as of this encounter Visit Diagnoses Diagnosis Malignant melanoma of face (HCC)- Primary Malignant melanoma of skin of other and unspecified parts of face documented in this encounter Advance Directives Documents on File Type Date Recorded Patient Senior Salesforce Developer Expl anation Advance Directives and Living Will 09/07/2017 LIVING WILL Latest Code Status on File Code Status Date Activated Date Inactivated Comments Full Code 03/04/2023 7:10 AM 03/04/2023 3:47 PM Question Answer Comments Discussion of Advance Directives occurred with: Not Discussed due to patient's condition Care Teams Compressor Operator Adjuster Relationship Specialty Start Date End Date Carson Gallardo DO 132 [facility] [place] [address] PCP - General Family Medicine 07/18/19 documented as of this encounter
--- OUTSIDE RECORDS SUMMARY | 2023-10-08 03:54 | External Medical Summary ---
Author Name Unknown Address Unknown Organization K09:[facility] [address] [place] [address] Laboratory Report Ordering Provider Test Date Status CHRIS MCCRAY 09/28/2023 13:06:37 Final Observation Date Value Abnormality Reference (Units ) Status BUN 09/28/2023 13:06:37 12 6-20 (mg/dL) Final Creatinine 09/28/2023 13:06:37 0.9 0.6-1.2 (mg/dL) Final Glomerular filtration rate/1.73 sq M.predicted [Volume Rate/Area] in Serum, Plasma or Blood by Creatinine-based formula (CKD-EPI) 09/28/2023 13:06:37 88 >=60 (mL/min) Final eGFR is calculated based on the CKD-EPI 2020 equation Sodium 09/28/2023 13:06:37 130 Below low normal 135 -146 (mmol/L) Final Potassium 09/28/2023 13:06:37 4.0 3.5-5.1 (m mol/L) Final Cl 09/28/2023 13:06:37 95 Below low normal 98- 107 (mmol/L) Final CO2 09/28/2023 13:06:37 24 22-32 (mmo l/L) Final Anion gap 09/28/2023 13:06:37 11 7-15 (mmol /L) Final Glucose 09/28/2023 13:06:37 100 70-120 (mg /dL) Final Albumin 09/28/2023 13:06:37 3.6 Below low normal 3.8 -5.0 (g/dL) Final AST (Aspartate aminotransferase) 09/28/2023 13:06:37 94 Above high normal 10-50 (U/L) Final Alk Phos 09/28/2023 13:06:37 119 35-130 (U/ L) Final Bilirubin, Total 09/28/2023 13:06:37 1.0 <=1 .2 (mg/dL) Final Calcium 09/28/2023 13:06:37 9.2 8.4-10.2 ( mg/dL) Final Protein 09/28/2023 13:06:37 8.0 6.0-8.3 (g /dL) Final ALT (Alanine aminotransferase) 09/28/2023 13:06:37 52 Above high normal 10-50 (U/L) Final Performing Location [facility] [address] [place] [address]
--- OUTSIDE RECORDS SUMMARY | 2023-10-08 03:55 | External Medical Summary ---
Author Name Unknown Address Unknown Organization K01:[facility] [place] [address] [facility] [address] Laboratory Report Ordering Provider Test Date Status MCCRAY,CHRIS 09/15/2023 08:00:25 Final Observation Date Value Abnormality Reference (Units ) Status TSH 09/15/2023 08:00:25 3.44 0.27-4.20 (uIU/mL) Final Performing Location [facility] [place] [address] [facility] [address]
--- OUTSIDE RECORDS SUMMARY | 2023-10-08 03:55 | External Medical Summary | Summary of Care ---
Author Name Unknown Organization [facility] Address [address] [place] [address] Phone [phone] Care Team Providers Care Right Of Way Buyer Name Role Phone Carson Gallardo Primary Care Provider Reason for Visit * Reason Onset Date Comments Advice 09/23/2023 Dr. Epstein Encounter Details Date Type Department Care Team ([facility] Contact Info) Description 09/23/2023 Telephone Hematology/Oncology [facility] [address] [place] [phone] Services, Scheduling [address] [place] [address] Advice (Dr. Epstein) Allergies Active Allergy Reactions Criticality Noted Date Comments Sulfamethoxazole-Trimethop rim Fever,Other (Please comment) 09/13/2019 documented as of this encounter (statuses as of 09/23/2023) Medications Medication Sig Dispensed Refills Start Date End Date Status FISH OIL 1000 MG PO CAPS Take by mouth. 0 0 2006 Active CENTRUM SILVER PO TABS Take by mouth. 0 Active METFORMIN HCL ER (OSM) 500 MG PO [id number]:Me tabolon Quantose IR Research Study*[id number] Take as directed by study staff 400 [...] Anxiety. 30 Tablet 0 08/19/2023 Active Ipratropium [place] 0.03 % Nasal Solution (Atrovent) Administer 2 Sprays into nostril in the morning and 2 Sprays before bedtime. 30 mL 3 09/16/2023 Active documented as of this encounter (statuses as of 09/23/2023) Active Problems Problem Noted Date Diagnosed Date [...] as of this encounter (statuses as of 09/23/2023) Resolved Problems Problem Noted Date Diagnosed Date Resolved Date Family history of malignant neoplasm of prostate 03/11/2018 08/31/2019 Impaired fasting glucose 04/11/201404/2020 Metabolon Quantose IR [facility] Study*[id number] 01/20/2014 04/10/2014 Overview: METABOLON QUANTOSE IR STUDY. PROJECT: #[id number], KINESIOLOGY INTERNSHIP: Tarun Nieto MD/ Dejuan Magdaleno MD. SUMMARY: The Use of a Novel Insulin Resistance Test as a Monitoring Indicator of Glycemic Control in Prediabetics and Diabetics treated with metformin combined with lifestyle intervention. CONTACTS: During normal business hours, contact Lily Burgos RN, BSN at ; after hours Extract Puller via the [facility] water gas operator Impotence of organic origin 01/09/2014 08/31/2019 Epididymitis 01/09/2014 03/09/2017 Elevated prostate specific antigen (PSA) 01/09/2014 01/09/2014 Dry eye syndrome 12/31/2012 08/31/2019 Low testosterone 12/31/2012 08/31/2019 Family history of GI malignancy 07/09/2012 08/31/2019 Other specified hypothyroidism 08/19/2006 08/31/2019 ADVANCE DIRECTIVE INFORMATION 2006 08/31/2019 Overview: Information given to patient. DISC DIS [id number] - bulge L3-4, L4-5 02/21/2002 08/31/2019 FAM HX-DIABETES MELLITUS - Dad 01/31/1999 08/31/2019 Mixed dyslipidemia 02/01/1998 9 Overview: Per Lipid Taxonomy. Idiopathic urticaria 020 documented as of this encounter (statuses as of 09/23/2023) Immunizations Name Administration Dates Next Due COVID-19 [...] encounter Miscellaneous Notes * Telephone Encounter - Danilo Reeves RN - 09/23/2023 10:21 AM EDT See other encounter. * Telephone Encounter - Mireille Tubbs OSA - 09/23/2023 9:07 AM EDT We received a call from Dylan. He stated that he has had a fever over the past 5 days or so. It was only above 101 once over that period of time. This morning he was 100.1 and as of right now he isat a 99.0. While on the call we got disconnected, I attempted to reach back out to the patient. He did answer but we were unable to hear each other. Please give him a call back at your earliest convenience at [phone] to advise him. Thank you! documented in this encounter Plan of Treatment Upcoming Encounters Date Type Department Care Team (Late st Contact Info) Description 10/02/2023 10:10 AM EDT Pharmacy Family Practice [address] [place] [phone] College, Pharmacist [address] [place] [address] 10/02/2023 10:40 AM EDT Office Visit Family Practice [address] [place] [address] [address] [place] [phone] Jocelyn Bro DO [address] [place] [address] 10/06/2023 9:10 AM EDT Laboratory Laboratory [facility] [address] [place] [phone] Danielle Lab [facility] [address] [place] [address] 10/06/2023 9:30 AM EDT Office Visit Hematology/Oncology [facility] [place] [address] [place] [phone] Susie Epstein MD [address] [place] [address] 10/06/2023 10:00 AM EDT Hem/Onc Treatment Hematology/Oncology Treatment, [place] [address] [place] [phone] 03/17/2024 8:20 AM EDT Office Visit [facility] [address] [place] [address] Martha Gr CRNP [address] [place] [address] 09/15/2024 10:00 AM EDT Office Visit [facility] [address] [place] [address] Carson Gallardo DO [address] [place] [address] Scheduled Procedures Name Priority Associated Diagnoses Date/Ti [...] 08/04/20242 024, 12/11/2022, 05/28/2022, Additional history exists GFR [...] this encounter Medical Devices Implanted Type Area Clothing Sorter Device Identifier Shelf Expiration Date Model / Serial / Lot Port Implant W/8f Poly Cath - [id number] Implanted:Qty : 1 on 04/22/2023 by Kaiden Amrenta MD at [facility] Right: Chest CR BARD : PERIPHERAL VASCULAR [id number] 11/19/2024 [id number] / / [id number] documented as of this encounter Advance Directives Documents on File Type Date Recorded Patient Pecan Huller Expl anation Advance Directives and Living Will 09/07/2017 LIVING WILL Latest Code Status on File Code Status Date Activated Date Inactivated Comments Full Code 03/04/2023 7:10 AM 03/04/2023 3:47 PM Question Answer Comments Discussion of Advance Directives occurred with: Not Discussed due to patient's condition Care Teams Right Of Way Buyer Relationship Specialty Start Date End Date Carson Gallardo DO [address] [place] [address] PCP - General Family Medicine 07/18/19 documented as of this encounter
--- OUTSIDE RECORDS SUMMARY | 2023-10-08 03:55 | External Medical Summary | Summary of Care ---
Author Name Unknown Organization [facility] Address [address] [place] [address] Phone [phone] Care Team Providers Care Blueprint Clerk Name Role Phone Carson Gallardo Primary Care Provider Encounter Details Date Type Department Care Team (Late st Contact Info) Description 09/10/2023 Orders Only Hematology/Oncology, [facility] [address] [place] [address] Susie Epstein MD [address] [place] [address] Allergies Active Allergy Reactions Criticality Noted Date Comments Sulfamethoxazole-Trimethop rim Fever,Other (Please comment) 09/13/2019 documented as of this encounter (statuses as of 09/10/2023) Medications Medication Sig Dispensed Refills Start Date End Date Status FISH OIL 1000 MG PO CAPS Take by mouth. 0 0 2006 Active CENTRUM SILVER PO TABS Take by mouth. 0 Active ADVIL 200 MG PO CAPS Take by mouth. 0 Active METFORMIN HCL ER (OSM) 500 MG PO [id number]:Met carter Quantose IR Research Study*[id number] Take as directed by study staff 400 Tab 0 01/20/2014 Active Loratadine 10 MG Oral CapsuleIndications: in am Take 1 Capsule by mouth in the morning. 0 Active diphenhydrAMINE HCl 25 MG Oral Capsule Take 1 Capsule by mouth at bedtime. 0 Active Metamucil [facility] Fiber 58.12 % Oral Packet (Psyllium) Take 1 Packet by mouth in the morning and 1 Packet before bedtime. 0 Active Acetaminophen 500 MG Oral TabletIndications:a s needed Take 1 Tablet by mouth every 6 hours as needed. 0 Active Lidocaine-Prilocain e 2.5-2.5 % External Cream (Emla)Indications:M alignant melanoma of face (HCC) APPLY TO SKIN OVER MEDIPORT & COVER 1HR PRIOR TO ACCESSING. 30 g 1 05/05/2023 Active Lisinopril 2.5 MG Oral Tablet (Prinivil)Indicatio ns:HTN, goal below 140/90 Take 1 Tablet by mouth in the morning. 30 Tablet 06/25/2023 Active Apixaban 5 MG Oral Tablet (Eliquis)Indication s:Typical atrial flutter (HCC),HTN, goal below 140/90 Take 1 Tablet by mouth in the morning and 1 Tablet before bedtime. 180 Tablet 06/25/2023 Active Metoprolol Succinate ER 25 MG Oral Tablet Extended Release 24 Hour (toPROL XL)Indications:Typi kennedi atrial flutter (HCC),HTN, goal below 140/90 Take [...] 1 % External Cream (LamISIL AT ATHLETE'S FOOT)Indications:Ti leatha pedis, unspecified laterality Apply to the affected area of the feet twice daily for 14-28 days. 42 g 5 06/29/2023 Active Levothyroxine Sodium 88 MCG Oral Tablet (Levoxyl) Take 1 Tablet by mouth daily first thing in the morning. (at least 30 min prior to breakfast or other meds) 100 Tablet 3 06/25/2023 Active Ipratropium [place] 0.03 % Nasal Solution (Atrovent) Administer 2 Sprays into nostril in the morning and 2 Sprays before bedtime. 30 mL 3 06/24/2023 Active Amoxicillin-Pot Clavulanate 875-125 MG Oral Tablet (Augmentin)Indicati ons:Malignant melanoma of face (HCC) Take 1 Tablet by mouth in the morning and 1 Tablet before bedtime. 14 Tablet 0 07/14/2023 Active LORazepam 0.5 MG Oral Tablet (Ativan) Take 1 Tablet by mouth every 6 hours as needed for Anxiety. 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 PROJECT: #[id number], CASHIER CLERK: Tarun Nieto MD/ Dejuan Magdaleno MD. SUMMARY: The Use of a Novel Insulin Resistance Test as a Monitoring Indicator of Glycemic Control in Prediabetics and Diabetics treated with metformin combined with lifestyle intervention. CONTACTS: During normal business hours, contact Lily Burgos RN, BSN at ; after hours Access Consultant via the [facility] hospital operator helper Impotence of organic origin 01/09/2014 08/31/2019 Epididymitis 01/09/2014 03/09/2017 Elevated prostate specific antigen (PSA) 01/09/2014 01/09/2014 Dry eye syndrome 12/31/2012 08/31/2019 Low testosterone 12/31/2012 08/31/2019 Family history of GI malignancy 07/09/2012 08/31/2019 Other specified hypothyroidism 08/19/2006 08/31/2019 ADVANCE DIRECTIVE INFORMATION 2006 08/31/2019 Overview: Information given to patient. DISC DIS UBD-SBC-RPAISY - bulge L3-4, L4-5 02/21/2002 08/31/2019 FAM HX-DIABETES MELLITUS - Dad 01/31/1999 08/31/2019 Mixed dyslipidemia 02/01/1998 9 Overview: Per Lipid Taxonomy. Idiopathic urticaria 020 documented as of this encounter (statuses as of 09/10/2023) Immunizations Name Administration Dates Next Due COVID-19 [...] Care Team (Late st Contact Info) Description 09/14/2023 1:40 PM EDT Office Visit [facility] [address] [place] [address] Carson Gallardo DO [address] [place] [address] 09/15/2023 7:50 AM EDT Laboratory Laboratory [facility] [place] [address] [place] [phone] Danielle, Lab [facility] [address] [place] [address] 09/15/2023 9:00 AM EDT [facility] [address] [facility], [place] [phone] Danielle, Chair 10 Hem Onc [address] [place] [address] 10/06/2023 9:30 AM EDT Office Visit Hematology/Oncology [facility] [place] [address] [place] [phone] Susie Epstein MD [address] [facility] [place] [address] 10/06/2023 10:00 AM EDT Hem/Onc Treatment Hematology/Oncology [address], [place] [phone] Scheduled Procedures Name Priority Associated Diagnoses Date/Ti me COLONOSCOPY FLEXIBLE PROXIMAL DIAGNOSTIC Recall History of colon polyps ESOPHAGOGASTRODUODENOSCOPY ( EGD), FLEXIBLE, TRANSORAL, DIAGNOSTIC Recall Lipoma of other specified sites Health Maintenance Due Date Last Done Comments Diabetic Eye Exam 11/12/2023 11/11/2022, , 10/25/2021, Additional history exists Diabetic Foot Exam 12/19/2023 12/18/2022, 0 10/08/2021, 09/17/2020 HbA1c 02/02/2024 08/04/2023, 04/23, 12/11/2022, Additional history exists Depression Screening 03/11/2024 03/11/2023 Albumin/Creatinine Ratio 08/04/2024 024, 12/11/2022, 05/28/2022, Additional history exists GFR 08/24/2024 08/25/2023, 07/23, 07/14/2023, Additional history exists TSH 08/24/2024 08/25/2023, 07/23, 07/14/2023, Additional history exists COLONOSCOPY-EVERY 5 YRS AGES [...] this encounter Medical Devices Implanted Type Area Clay Carman Device Identifier Shelf Expiration Date Model / Serial / Lot Port Implant W/8f Poly Cath - [id number] Implanted:Qty : 1 on 04/22/2023 by Kaiden Armenta MD at OR [facility] Right: Chest CR BARD : PERIPHERAL VASCULAR [id number] 11/19/2024 [id number] / / [id number] documented as of this encounter Advance Directives Documents on File Type Date Recorded Patient Economics Professor Expl anation Advance Directives and Living Will 09/07/2017 LIVING WILL Latest Code Status on File Code Status Date Activated Date Inactivated Comments Full Code 03/04/2023 7:10 AM 03/04/2023 3:47 PM Question Answer Comments Discussion of Advance Directives occurred with: Not Discussed due to patient's condition Care Teams Blueprint Clerk Relationship Specialty Start Date End Date Carson Gallardo DO [address] [place] [address] PCP - General Family Medicine 07/18/19 documented as of this encounter
--- OUTSIDE RECORDS SUMMARY | 2023-10-08 03:55 | External Medical Summary | Summary of Care ---
Author Name Unknown Organization [facility] Address [address] [place] [address] Phone [phone] Care Team Providers Care Construction Worker Name Role Phone Carson Gallardo Primary Care Provider Reason for Visit * Reason Onset Date Comments Advice 09/23/2023 Dr. Epstein Encounter Details Date Type Department Care Team (Late st Contact Info) Description 09/23/2023 Telephone Hematology/Oncology [facility] [address] [place] [phone] Susie Epstein MD [address] [place] [address] Advice (Dr. Epstein) Allergies Active Allergy Reactions Criticality Noted Date Comments Sulfamethoxazole-Trimethop rim Fever,Other (Please comment) 09/13/2019 documented as of this encounter (statuses as of 09/24/2023) Medications Medication Sig Dispensed Refills Start Date End Date Status FISH OIL 1000 MG PO CAPS Take by mouth. 0 0 2006 Active CENTRUM SILVER PO TABS Take by mouth. 0 Active METFORMIN HCL ER (OSM) 500 MG PO [id number]:Me tabolon Quantose IR Research Study*[id number] Take as directed by study staff 400 [...] Anxiety. 30 Tablet 0 08/19/2023 Active Ipratropium [place] 0.03 % Nasal Solution (Atrovent) Administer 2 Sprays into nostril in the morning and 2 Sprays before bedtime. 30 mL 3 09/16/2023 Active documented as of this encounter (statuses as of 09/24/2023) Active Problems Problem Noted Date Diagnosed Date [...] as of this encounter (statuses as of 09/24/2023) Resolved Problems Problem Noted Date Diagnosed Date Resolved Date Family history of malignant neoplasm of prostate 03/11/2018 08/31/2019 Impaired fasting glucose 04/11/201404/2020 Metabolon Quantose IR [facility] Study*[id number] 01/20/2014 04/10/2014 Overview: METABOLON QUANTOSE IR STUDY. PROJECT: #[id number], CLIN ASST: Tarun Nieto MD/ Dejuan Magdaleno MD. SUMMARY: The Use of a Novel Insulin Resistance Test as a Monitoring Indicator of Glycemic Control in Prediabetics and Diabetics treated with metformin combined with lifestyle intervention. CONTACTS: During normal business hours, contact Lily Burgos RN, BSN at ; after hours Data Support Specialist via the [facility] hospital sheeter operator Impotence of organic origin 01/09/2014 08/31/2019 Epididymitis 01/09/2014 03/09/2017 Elevated prostate specific antigen (PSA) 01/09/2014 01/09/2014 Dry eye syndrome 12/31/2012 08/31/2019 Low testosterone 12/31/2012 08/31/2019 Family history of GI malignancy 07/09/2012 08/31/2019 Other specified hypothyroidism 08/19/2006 08/31/2019 ADVANCE DIRECTIVE INFORMATION 2006 08/31/2019 Overview: Information given to patient. DISC DIS OFJ-DHG-MQSXRZ - bulge L3-4, L4-5 02/21/2002 08/31/2019 FAM HX-DIABETES MELLITUS - Dad 01/31/1999 08/31/2019 Mixed dyslipidemia 02/01/1998 9 Overview: Per Lipid Taxonomy. Idiopathic urticaria 020 documented as of this encounter (statuses as of 09/24/2023) Immunizations Name Administration Dates Next Due COVID-19 [...] 9:08 AM EDT Sexual Orientation Straight 09/13/2019 9 :08 AM EDT Job Start Date Occupation Industry Not on file Not on file Not on file documented as of this encounter Miscellaneous Notes * Telephone Encounter - Anjana Soto RN - 09/24/2023 8:29 AM EDT Called patient. He states that he took tylenol 500mg last evening around dinner time, then another 500mg at 10:45pm. No fever since. He is feeling pretty good now, planning on taking it easy today. Encouraged him to continue to monitor and push PO fluid intake. He verbalized understanding. * Telephone Encounter - Danilo Reeves RN - 09/23/2023 10:11 AM EDT Pt currently taking Keytruda, reviewed recent labs, WBC normal in that time. Called patient back, he states that he feels "cold" has been taking Tylenol which has been helping.States his temperature at this time is 98.8. States he had diarrhea Thursday and Thursday. Denies cough, shortness of breath. Is having headaches, dizziness. He feels that it's most prevalent at nighttime. BP is normal. Dr. Matt willingham, advised patient that it may be a viral illness, can take up to 5-7 days for symptoms to decrease. Advised to take Tylenol PRN for fever and continue to stay well hydrated and eat. Pt verbalized understanding. * Telephone Encounter - Lakisha Elkins OSA - 09/23/2023 9:11 AM EDT What is the reason for call? Fever ranging from 101.5 to 99, has headache and dizziness and diarrhea. Has tested negative for COVID. Currently fever is 101.1 What Clinic is the patient trying to reach? Hem/Onc [facility] Call was sent via TE to clinic nurses documented in this encounter Plan of Treatment Upcoming Encounters Date Type Department Care Team (Late st Contact Info) Description 10/02/2023 10:10 AM EDT Pharmacy Family Practice [address] [facility] [address] [place] [phone] College, Pharmacist [address] [place] [address], [place] [address] 10/02/2023 10:40 AM EDT Office Visit [address] 293 [facility], [place] [phone] Jocelyn Bro DO 293 [facility], [place] [address] 10/06/2023 9:10 AM EDT Laboratory Laboratory [facility] [address] [place] [phone] [facility] [address] [place] [address] 10/06/2023 9:30 AM EDT Office Visit Hematology/Oncology [facility] [address] [place] [phone] Susie Epstein MD [address] [place] [address] 10/06/2023 10:00 AM EDT Hem/Onc Treatment [facility]/Oncology [facility] [address] [place], [place] [phone] 03/17/2024 8:20 AM EDT Office Visit [place] [address] [place] [address] Martha Gr CRNP 132 [facility] [place] [address] 09/15/2024 10:00 AM EDT Office Visit [place] [address] [place] [address] Carson Gallardo DO [address] [place] [address] Scheduled Procedures Name Priority Associated Diagnoses Date/Ti [...] this encounter Medical Devices Implanted Type Area Change Consultant Device Identifier Shelf Expiration Date Model / Serial / Lot Port Implant W/8f Poly Cath - [id number] Implanted:Qty : 1 on 04/22/2023 by Kaiden Armenta MD at [facility] Right: Chest CR BARD : PERIPHERAL VASCULAR [id number] 11/19/2024 [id number] / / [id number] documented as of this encounter Advance Directives Documents on File Type Date Recorded Patient Erp Pm Expl anation Advance Directives and Living Will 09/07/2017 LIVING WILL Latest Code Status on File Code Status Date Activated Date Inactivated Comments Full Code 03/04/2023 7:10 AM 03/04/2023 3:47 PM Question Answer Comments Discussion of Advance Directives occurred with: Not Discussed due to patient's condition Care Teams Construction Worker Relationship Specialty Start Date End Date Carson Gallardo DO 132 [facility] [place] [address] PCP - General Family Medicine 07/18/19 documented as of this encounter
--- OUTSIDE RECORDS SUMMARY | 2023-10-08 03:55 | External Medical Summary ---
Author Name Unknown Address Unknown Organization K01:LABORATORY [facility] [place] - [address] [facility] [address] Laboratory Report Ordering Provider Test Date Status CHU ALEXANDER 09/15/2023 08:00:25 Final Observation Date Value Abnormality Reference (Units ) Status HbA1C 09/15/2023 08:00:25 6.7 Above high normal 4. 0-5.6 (%) Final The use of HbA1c to monitor glycemic status is based on normal hemoglobin and HbA composition. This test should not be used in patients with abnormal hemoglobin that affects the half life of the red blood cell or the in vivo glycation rates. Glucose, estimated average 09/15/2023 08:00:25 146 Above high normal <126 (mg/dL) Rodrick crocker Performing Location LABORATORY [facility] - [address] [facility] [address]
--- OUTSIDE RECORDS SUMMARY | 2023-10-08 03:55 | External Medical Summary | Summary of Care ---
Author Name Unknown Organization [facility] Address [address] [place] [address] Phone [phone] Care Team Providers Care Advertising Columnist Name Role Phone Carson Gallardo Primary Care Provider Reason for Visit * Reason Comments Chemotherapy C7/D1 - Keytruda * Episode Based Medications (Routine) - Authorized Specialty Diagnoses / Procedures Referred By Tanisha t Referred To Contact Diagnoses Malignant melanoma of face (HCC) Procedures CA INJ PEMBROLIZUMAB Susie Epstein MD [address] [place] [address] Anc Hem/Onc [facility] DEPT CLOSED - 05/05/23 [address] [place] [address] Referral ID Status Reason Start Date Expiration Date V isits Requested Visits Authorized [id number] Authorized 03/17/2023 11/22/2023 99 99 Encounter Details Date Type Department Care Team (Latest Contact Info) Description 08/04/2023 9:30 AM EST Hem/Onc Treatment Hematology/Oncolog y Treatment, [place] [address] [place] [address] Danielle, Chair 5 Hem Onc Scenery [address] [place] [address] Malignant melanoma of face (HCC)*; Encounter for antineoplastic immunotherapy Allergies Active Allergy Reactions Criticality Noted Date Comments Sulfamethoxazole-Trimethop rim Fever,Other (Please comment) 09/13/2019 documented as of this encounter (statuses as of 09/09/2023) Medications Medication Sig Dispensed Refills Start Date End Date Status FISH OIL 1000 MG PO CAPS Take by mouth. 0 0 2006 Active CENTRUM SILVER PO TABS Take by mouth. 0 Active ADVIL 200 MG PO CAPS Take by mouth. 0 Active METFORMIN HCL ER (OSM) 500 MG PO [id number]:M triston Quantose IR Research Study*[id number] Take as directed by study staff 400 Tab 0 01/20/2014 Active Loratadine 10 MG Oral CapsuleIndication s:in [...] 500 MG Oral TabletIndications :as needed Take 1 Tablet by mouth every 6 hours as needed. 0 Active Lidocaine-Priloca ine 2.5-2.5 % External Cream (Emla)Indications :Malignant melanoma of face (HCC) APPLY TO SKIN OVER MEDIPORT & COVER 1HR PRIOR TO ACCESSING. 30 g 1 05/05/2023 Active Lisinopril 2.5 MG Oral Tablet (Prinivil)Indicat ions:HTN, goal below 140/90 Take 1 Tablet by mouth in the morning. 30 Tablet 11 06/25/2023 Active Apixaban 5 MG Oral Tablet (Eliquis)Indicati ons:Typical [...] meds) 100 Tablet 3 06/25/2023 Active Ipratropium [place] 0.03 % Nasal Solution (Atrovent) Administer 2 Sprays into nostril in the morning and 2 Sprays before bedtime. 30 mL 3 06/24/2023 Active Amoxicillin-Pot Clavulanate 875-125 MG Oral Tablet (Augmentin)Indica tions:Malignant melanoma of face (HCC) Take 1 Tablet by mouth in the morning and 1 Tablet before bedtime. 14 Tablet 0 07/14/2023 Active LORAzepam (ATIVAN) 0.5 MG Tablet Take 1 Tab by mouth every 6 hours as needed for Anxiety. 30 Tab 0 02/13/2020 4 Discontinue d(Refill) documented as of this encounter (statuses as of 09/09/2023) Active Problems Problem Noted Date Diagnosed Date [...] as of this encounter (statuses as of 09/09/2023) Resolved Problems Problem Noted Date Diagnosed Date Resolved Date Family history of malignant neoplasm of prostate 03/11/2018 08/31/2019 Impaired fasting glucose 04/11/201404/2020 Metabolon Quantose IR Resear Study*[id number] 01/20/2014 04/10/2014 Overview: METABOLON QUANTOSE IR STUDY. PROJECT: #[id number], SENIOR ANALYST PROGRAMMER: Tarun Nieto MD/ Dejuan Magdaleno MD. SUMMARY: The Use of a Novel Insulin Resistance Test as a Monitoring Indicator of Glycemic Control in Prediabetics and Diabetics treated with metformin combined with lifestyle intervention. CONTACTS: During normal business hours, contact Lily Burgos RN, BSN at ; after hours [employer]rier via the [facility] helper shear operator Impotence of organic origin 01/09/2014 08/31/2019 Epididymitis 01/09/2014 03/09/2017 Elevated prostate specific antigen (PSA) 01/09/2014 01/09/2014 Dry eye syndrome 12/31/2012 08/31/2019 Low testosterone 12/31/2012 08/31/2019 Family history of GI malignancy 07/09/2012 08/31/2019 Other specified hypothyroidism 08/19/2006 08/31/2019 ADVANCE DIRECTIVE INFORMATION 2006 08/31/2019 Overview: Information given to patient. DISC DIS [id number]-[id number] - bulge L3-4, L4-5 02/21/2002 08/31/2019 FAM HX-DIABETES MELLITUS - Dad 01/31/1999 08/31/2019 Mixed dyslipidemia 02/01/1998 9 Overview: Per Lipid Taxonomy. Idiopathic urticaria 020 documented as of this encounter (statuses as of 09/09/2023) Immunizations Name Administration Dates Next Due COVID-19 [...] Sign Reading Time Taken Comments Blood Pressure 115/71 08/04/2023 9:30 AM EST Pulse 73 08/04/2023 9:30 AM EST Temperature 36.4 C (97.6 F) 08/04/2023 9:30 AM ES T Respiratory Rate 16 08/04/2023 9:30 AM EST Oxygen Saturation 97% 08/04/2023 9:30 AM EST Inhaled Oxygen Concentration - - Weight 92.7 kg (204 lb 6.4 oz) 08/04/2023 9:30 A M EST Height - - Body Mass Index 29.33 04/22/2023 8:11 AM EDT documented in this encounter Nursing Notes * Jessica Goodwin RN - 08/04/2023 10:27 AM EST Goals: Patient will remain free from injury. Possible barriers to meeting goals: ambulating with IV pole Stability of the patient: Moderately stable - low risk of patient condition declining or worsening Summary regarding today's goals: Met: pt remained free of harm today Functional status at today's visit: Fully active, able to carry on all pre-disease performance without restriction The drug name, dose, infusion volume, rate and route of administration, expiration date and time, appearance and physical integrity of the drug and rate set on the pump and sequencing of drug administration (as applicable) were verified by me and second sign-in RN. Patient was assessed for symptoms or adverse side effects during treatment. Patient tolerated treatment well without any acute issues or problems. Patient left facility in stable condition and denied any further needs. * Jessica Goodwin RN - 08/04/2023 9:55 AM EST Chair 7. Port accessed. Patient here for Keytruda, feeling well, no issues or complaints with treatments, other than some mild fatigue. Chemo agents Keytruda Appetite good Nausea/Vomiting no Diarrhea no Constipation no Mucositis no Fatigue mild, able to complete everything he needs to do on a daily basis however Bleeding no Infection no Rash no Numbness tingling no Pain no Radiation no ABN Labs WNL for tx Alt in Tx: N/A Return in 3 weeks Safety and Risk for Injury Patient will remain free from injury. Ensure appropriate safety devices are available. Provide and maintain safe environment. documented in this encounter Plan of Treatment Upcoming Encounters Date Type Department Care Team (Late st Contact Info) Description 09/14/2023 1:40 PM EDT Office Visit [facility] [address] [place] [address] Carson Gallardo, [address] [place] [address] 09/15/2023 7:50 AM EDT Laboratory Laboratory [facility] [place] [address] [place] [phone] Danielle, Lab Scenery [address] [facility] [place] [address] 09/15/2023 9:00 AM EDT Hem/Onc Treatment Hematology/Oncology Treatment, [place] [address] [place] [phone] Danielle, Chair 10 Hem Onc Scenery [address] [place] [address] 10/06/2023 9:30 AM EDT Office Visit Hematology/Oncology [facility] [place] [address] [facility] [place] [address] Susie Epstein MD [address] [facility] [place] [address] 10/06/2023 10:00 AM EDT Hem/Onc Treatment Hematology/Oncology Treatment, [place] [address] [facility] [place] [phone] Scheduled Procedures Name Priority Associated Diagnoses Date/Ti [...] this encounter Medical Devices Implanted Type Area Us Administrative Law Judge Device Identifier Shelf Expiration Date Model / Serial / Lot Port Implant W/8f Poly Cath - [id number] Implanted:Qty : 1 on 04/22/2023 by Kaiden Armenta MD at OR [facility] Right: Chest CR BARD : PERIPHERAL VASCULAR [id number] 11/19/2024 [id number] / / [id number] documented as of this encounter Visit Diagnoses Diagnosis Malignant melanoma of face (HCC)- Primary Malignant melanoma of skin of other and unspecified parts of face Encounter for antineoplastic immunotherapy documented in this encounter Administered Medications Inactive Administered Medications - up to 3 most recent administrations Medication Order MAR Action Action Date Dose Rate Site hEParin 100 UNIT/ML Lock Flush inj 500 Units 500 Units (5 mL), IV Lock, PRN Other, IV Flush, Starting on Thu08/04/23 at 0935, Until Thu08/04/23 at 1433, For 24 hours, Do not flush if lock, PICC, or central line not in place; IV infusing or unable to flush. Given 08/04/2023 10:20 AM EST 500 Units NSS infusion Intravenous, at 50 mL/hr, PRN, Starting on Thu08/04/23 at 1045, Until Thu08/04/23 at 1433, KVO Start Infusion 08/04/2023 9:35 AM EST 50 mL/hr Pembrolizumab (Keytruda) 200 mg in NSS 100 mL infusion 200 mg, IV Piggyback, ONCE, 1 dose, On Thu08/04/23 at 1115, Administer over 30 Minutes, Infuse through 0.2 micron filter. Start Infusion 08/04/2023 9:38 AM EST 200 mg 200 mL/hr sodium chloride 0.9 % flush central line 10 mL 10 mL, IV Push, PRN Other, IV Flush, Starting on Thu08/04/23 at 0935, Until Thu08/04/23 at 1433, For 24 hours, Do not flush if lock, PICC, or central line not in place; IV infusing or unable to flush. Given 08/04/2023 10:20 AM EST 10 mL documented in this encounter Advance Directives Documents on File Type Date Recorded Patient Client Relationship Executive Expl anation Advance Directives and Living Will 09/07/2017 LIVING WILL Latest Code Status on File Code Status Date Activated Date Inactivated Comments Full Code 03/04/2023 7:10 AM 03/04/2023 3:47 PM Question Answer Comments Discussion of Advance Directives occurred with: Not Discussed due to patient's condition Care Teams Advertising Columnist Relationship Specialty Start Date End Date Carson Gallardo DO [address] [place] [address] PCP - General Family Medicine 07/18/19 documented as of this encounter
--- OUTSIDE RECORDS SUMMARY | 2023-10-08 03:55 | External Medical Summary ---
Author Name Unknown Address Unknown Organization [facility] [place] [address] Laboratory Report Ordering Provider Test Date Status SHAZIACHRIS 09/15/2023 08:00:25 Final Observation Date Value Abnormality Reference (Units ) Status Nucleated erythrocytes/100 leukocytes [Ratio] in Blood by Automated count 09/15/2023 08:00:25 Final Variant lymphocytes [Presence] in Blood by Light microscopy 09/15/2023 08:00:25 Present Abnormal None Seen Final Performing Location [facility] [place] [address]
--- OUTSIDE RECORDS SUMMARY | 2023-10-08 03:55 | External Medical Summary | Summary of Care ---
Author Name Unknown Organization [facility] Address [address] [place] [address] Phone [phone] Care Team Providers Care Director Nicu Name Role Phone Carson Gallardo Primary Care Provider Reason for Visit * Reason Comments Outpatient Testing Encounter Details Date Type Department Care Team (Late st Contact Info) Description 09/15/2023 7:50 AM EDT Laboratory Laboratory [facility] [place] [address] [place] [phone] [place], Lab Scenery [address] [place] [address] Malignant melanoma of face (HCC); Encounter for long-term (current) use of medications; Diabetes mellitus with nephropathy (HCC) Allergies Active Allergy Reactions Criticality Noted Date Comments Sulfamethoxazole-Trimethop rim Fever,Other (Please comment) 09/13/2019 documented as of this encounter (statuses as of 09/15/2023) Medications Medication Sig Dispensed Refills Start Date End Date Status FISH OIL 1000 MG PO CAPS Take by mouth. 0 0 2006 Active CENTRUM SILVER PO TABS Take by mouth. 0 Active METFORMIN HCL ER (OSM) 500 MG PO [id number]:Me tabolon Quantose IR Research Study*[id number] Take as directed by study staff 400 [...] meds) 100 Tablet 3 06/25/2023 Active Ipratropium [place] 0.03 % Nasal Solution (Atrovent) Administer 2 Sprays into nostril in the morning and 2 Sprays before bedtime. 30 mL 3 06/24/2023 Active LORazepam 0.5 MG Oral Tablet (Ativan) Take 1 Tablet by mouth every 6 hours as needed for Anxiety. 30 Tablet 0 08/19/2023 Active documented as of this encounter (statuses as of 09/15/2023) Active Problems Problem Noted Date Diagnosed Date [...] as of this encounter (statuses as of 09/15/2023) Resolved Problems Problem Noted Date Diagnosed Date Resolved Date Family history of malignant neoplasm of prostate 03/11/2018 08/31/2019 Impaired fasting glucose 04/11/201404/2020 Metabolon Quantose IR [facility] Study*[id number] 01/20/2014 04/10/2014 Overview: METABOLON QUANTOSE IR STUDY. PROJECT: #[id number], COMPUTER REPAIR INSTRUCTOR: Tarun Nieto MD/ Dejuan Magdaleno MD. SUMMARY: The Use of a Novel Insulin Resistance Test as a Monitoring Indicator of Glycemic Control in Prediabetics and Diabetics treated with metformin combined with lifestyle intervention. CONTACTS: During normal business hours, contact Lily Burgos RN, BSN at ; after hours Credit Administration Specialist via the [facility] hospital inner tube tuber machine operator Impotence of organic origin 01/09/2014 08/31/2019 Epididymitis 01/09/2014 03/09/2017 Elevated prostate specific antigen (PSA) 01/09/2014 01/09/2014 Dry eye syndrome 12/31/2012 08/31/2019 Low testosterone 12/31/2012 08/31/2019 Family history of GI malignancy 07/09/2012 08/31/2019 Other specified hypothyroidism 08/19/2006 08/31/2019 ADVANCE DIRECTIVE INFORMATION 2006 08/31/2019 Overview: Information given to patient. DISC DIS QRY-BYA-SIURXD - bulge L3-4, L4-5 02/21/2002 08/31/2019 FAM HX-DIABETES MELLITUS - Dad 01/31/1999 08/31/2019 Mixed dyslipidemia 02/01/1998 9 Overview: Per Lipid Taxonomy. Idiopathic urticaria 020 documented as of this encounter (statuses as of 09/15/2023) Immunizations Name Administration Dates Next Due COVID-19 [...] Care Team (Late st Contact Info) Description 09/15/2023 9:00 AM EDT Hem/Onc Treatment Hematology/Oncology Treatment, [place] [address] [place] [phone] Danielle, Chair 10 Hem Onc [facility] [address] [place], [place] [address] Arrived 10/06/2023 9:30 AM EDT Office Visit Hematology/Oncology [facility] [place] [address] [place] [phone] Susie Epstein MD [address] [place] [address] 10/06/2023 10:00 AM EDT Hem/Onc Treatment Hematology/Oncology Treatment, [place] [address] [place] [phone] 03/17/2024 8:20 AM EDT Office Visit [facility] [address] [place] [address] Martha Gr CRNP [address] [place] [address] 09/15/2024 10:00 AM EDT Office Visit [facility] [address] [place] [address] Carson Gallardo DO [address] [place] [address] Pending Results Name Type Priority Associated Diagnoses Date /Time CBC WITH WBC DIFFERENTIAL Lab STAT Malignant melanoma of face (HCC) 09/15/2023 8:00 AM EDT COMPREHENSIVE METABOLIC PANEL Lab STAT Malignant melanoma of face (HCC) 09/15/2023 8:00 AM EDT TSH WITH FREE T4 IF INDICATED Lab STAT Malignant melanoma of face (HCC) Encounter for long-term (current) use of medications 09/15/2023 8:00 AM EDT HEMOGLOBIN A1C Lab Routine Diabetes mellitus with nephropathy (HCC) 09/15/2023 8:00 AM EDT CBC Lab STAT Malignant melanoma of face (HCC) 09/15/2023 8:00 AM EDT DIFFERENTIAL, AUTOMATED Lab STAT Malignant melanoma of face (HCC) 09/15/2023 8:00 AM EDT Scheduled Procedures Name Priority Associated [...] this encounter Medical Devices Implanted Type Area Boom Tender Device Identifier Shelf Expiration Date Model / Serial / Lot Port Implant W/8f Poly Cath - [id number] Implanted:Qty : 1 on 04/22/2023 by Kaiden Armenta MD at OR [facility] Right: Chest CR BARD : PERIPHERAL VASCULAR [id number] 11/19/2024 [id number] / / [id number] documented as of this encounter Visit Diagnoses Diagnosis Malignant melanoma of face (HCC) Malignant melanoma of skin of other and unspecified parts of face Encounter for long-term (current) use of medications Encounter for long-term (current) use of other medications 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, not stated as uncontrolled documented in this encounter Advance Directives Documents on File Type Date Recorded Patient Pot Room Supervisor Expl anation Advance Directives and Living Will 09/07/2017 LIVING WILL Latest Code Status on File Code Status Date Activated Date Inactivated Comments Full Code 03/04/2023 7:10 AM 03/04/2023 3:47 PM Question Answer Comments Discussion of Advance Directives occurred with: Not Discussed due to patient's condition Care Teams Director Nicu Relationship Specialty Start Date End Date Carson Gallardo DO [address] [place] [address] PCP - General Family Medicine 07/18/19 documented as of this encounter
--- OUTSIDE RECORDS SUMMARY | 2023-10-08 03:55 | External Medical Summary ---
Author Name Unknown Address Unknown Organization K09[facility] [place] [address] Laboratory Report Ordering Provider Test Date Status CHRIS MCCRAY 09/15/2023 08:00:25 Final Observation Date Value Abnormality Reference (Units ) Status WBC, Total 09/15/2023 08:00:25 7.30 4.00-10.8 0 (K/uL) Final RBC 09/15/2023 08:00:25 4.51 4.50-5.25 (M/uL) Final Hemoglobin 09/15/2023 08:00:25 13.4 Below low normal 14 .0-16.8 (g/dL) Final HCT 09/15/2023 08:00:25 40.3 40.0-48.4 (%) Final MCV 09/15/2023 08:00:25 89.4 82.0-99.5 (fL) Final MCH 09/15/2023 08:00:25 29.7 27.0-34.0 (pg) Final MCHC 09/15/2023 08:00:25 33.3 32.0-36.0 (g/dL) Final RDW 09/15/2023 08:00:25 14.0 11.5-15.5 (%) Final Platelets 09/15/2023 08:00:25 153 140-400 (K /uL) Final MPV 09/15/2023 08:00:25 10.1 6.6-11.1 ( fL) Final Performing Location [facility] [place] [address]
--- OUTSIDE RECORDS SUMMARY | 2023-10-08 03:55 | External Medical Summary | Summary of Care ---
Author Name Unknown Organization [facility] Address [address] [place] [address] Phone [phone] Care Team Providers Care Rack Maker Name Role Phone Carson Gallardo DO Primary Care Provider Reason for Referral * Precert (Within 10 days (routine)) - Pending Review Specialty Diagnoses / Procedures Referred By Tanisha hook Referred To Contact Radiology Diagnoses Abnormal finding on imaging Procedures MRI BRAIN WITH CONTRAST Carson Gallardo DO [address] [place] [address] Referral ID Status Reason Start Date Expiration Date V isits Requested Visits Authorized [id number] Pending Review 09/14/2023 999 999 Reason for Visit * Reason Comments Return Visit Pt here for return v isit. Encounter Details Date Type Department Care Team (Late st Contact Info) Description 09/14/2023 1:40 PM EDT Office Visit Family Practice [facility] [address] [place] [address] Carson Gallardo DO [address] [place] [address] Type 2 diabetes mellitus with hemoglobin A1c goal of less than 8.0% (HCC)*; Abnormal finding on imaging; Diabetes mellitus with nephropathy (HCC); HTN, goal below 130/80; Hypothyroidism, unspecified type; Paroxysmal atrial flutter (HCC); Open-angle glaucoma, unspecified glaucoma stage, unspecified laterality, unspecified open-angle glaucoma type; Dyslipidemia, goal LDL below 100; Chronic pain of right knee; Malignant melanoma of face (HCC) Allergies Active Allergy Reactions Criticality Noted Date Comments Sulfamethoxazole-Trimethop rim Fever,Other (Please comment) 09/13/2019 documented as of this encounter (statuses as of 09/14/2023) Medications Medication Sig Dispensed Refills Start Date End Date Status FISH OIL 1000 MG PO CAPS Take by mouth. 0 0 6 Active CENTRUM SILVER PO TABS Take by mouth. 0 Active METFORMIN HCL ER (OSM) 500 MG PO [id number]: Metabolon Quantose IR Research Study*[id number] Take as directed by study staff 400 Tab 0 4 Active Loratadine 10 MG Oral CapsuleIndicatio ns:in am Take 1 Capsule by mouth in the morning. 0 Active diphenhydrAMINE HCl 25 MG Oral Capsule Take 1 Capsule by mouth at bedtime. 0 Active Metamucil [facility] Fiber 58.12 % Oral Packet (Psyllium) Take 1 Packet by mouth in the morning and 1 Packet before bedtime. 0 Active Acetaminophen 500 MG Oral TabletIndication s:as needed Take 325 mg by mouth every 6 hours as needed for Pain, Moderate or Pain, Mild. 0 Active Lisinopril 2.5 MG Oral Tablet (Prinivil)Indica tions:HTN, goal below 140/90 Take 1 Tablet by mouth in the morning. 30 Tablet 11 4 Active Additional Information Patient taking differently:2.5 mg OralHS, Reported on 09/14/2023 Apixaban 5 MG Oral Tablet (Eliquis)Indicat ions:Typical atrial flutter (HCC),HTN, goal below 140/90 Take 1 Tablet by mouth in the morning and 1 Tablet before bedtime. 180 Tablet 3 4 Active Metoprolol Succinate ER 25 MG Oral Tablet Extended Release 24 Hour (toPROL XL)Indications:T ypical atrial flutter (HCC),HTN, goal below 140/90 Take 1 Tablet by mouth in the morning. 90 Tablet 3 4 Active Atorvastatin Calcium 80 MG Oral Tablet (Lipitor) Take 1 Tablet by mouth at bedtime. 100 Tablet 3 4 Active metFORMIN HCl ER 500 MG Oral Tablet Extended Release 24 Hour (Glucophage XR) Take 2 Tablets by mouth at bedtime. 200 Tablet 3 4 Active Omeprazole 20 MG Oral Capsule Delayed Release (PriLOSEC) Take 1 Capsule by mouth in the morning. 100 Capsule 3 4 Active Terbinafine HCl 1 % External Cream (LamISIL AT ATHLETE'S FOOT)Indications :Tinea pedis, unspecified laterality Apply to the affected area of the feet twice daily for 14-28 days. 42 g 5 4 Active Levothyroxine Sodium 88 MCG Oral Tablet (Levoxyl) Take 1 Tablet by mouth daily first thing in the morning. (at least 30 min prior to breakfast or other meds) 100 Tablet 3 4 Active Ipratropium [place] 0.03 % Nasal Solution (Atrovent) Administer 2 Sprays into nostril in the morning and 2 Sprays before bedtime. 30 mL 3 4 Active LORazepam 0.5 MG Oral Tablet (Ativan) Take 1 Tablet by mouth every 6 hours as needed for Anxiety. 30 Tablet 0 4 Active ADVIL 200 MG PO CAPS Take by mouth. 0 09/14/19 24 Discontinued(Med ication List Clean Up) Lidocaine-Priloc elba 2.5-2.5 % External Cream (Emla)Indication s:Malignant melanoma of face (HCC) APPLY TO SKIN OVER MEDIPORT & COVER 1HR PRIOR TO ACCESSING. 30 g 1 3 09/14/19 24 Discontinued Amoxicillin-Pot Clavulanate 875-125 MG Oral Tablet (Augmentin)Indic ations:Malignant melanoma of face (HCC) Take 1 Tablet by mouth in the morning and 1 Tablet before bedtime. 14 Tablet 0 4 09/14/19 24 Discontinued documented as of this encounter (statuses as of 09/14/2023) Active Problems Problem Noted Date Diagnosed Date [...] as of this encounter (statuses as of 09/14/2023) Resolved Problems Problem Noted Date Diagnosed Date Resolved Date Family history of malignant neoplasm of prostate 03/11/2018 08/31/2019 Impaired fasting glucose 04/11/201404/2020 [facility][id number] 01/20/2014 04/10/2014 Overview: METABOLON QUANTOSE IR STUDY. PROJECT: #[id number], LABOR LAW PROFESSOR: Tarun Nieto MD/ Dejuan Magdaleno MD. SUMMARY: The Use of a Novel Insulin Resistance Test as a Monitoring Indicator of Glycemic Control in Prediabetics and Diabetics treated with metformin combined with lifestyle intervention. CONTACTS: During normal business hours, contact Lily Burgos RN, BSN at ; after hours Underwriting Director via the [facility] ball rolling machine operator Impotence of organic origin 01/09/2014 08/31/2019 Epididymitis 01/09/2014 03/09/2017 Elevated prostate specific antigen (PSA) 01/09/2014 01/09/2014 Dry eye syndrome 12/31/2012 08/31/2019 Low testosterone 12/31/2012 08/31/2019 Family history of GI malignancy 07/09/2012 08/31/2019 Other specified hypothyroidism 08/19/2006 08/31/2019 ADVANCE DIRECTIVE INFORMATION 2006 08/31/2019 Overview: Information given to patient. DISC DIS [id number] - bulge L3-4, L4-5 02/21/2002 08/31/2019 FAM HX-DIABETES MELLITUS - Dad 01/31/1999 08/31/2019 Mixed dyslipidemia 02/01/1998 9 Overview: Per Lipid Taxonomy. Idiopathic urticaria 020 documented as of this encounter (statuses as of 09/14/2023) Immunizations Name Administration Dates Next Due COVID-19 [...] Sign Reading Time Taken Comments Blood Pressure 110/62 09/14/2023 1:41 PM EDT Pulse 77 09/14/2023 1:41 PM EDT Temperature 36.7 C (98 F) 09/14/2023 1:41 PM EDT Respiratory Rate 16 09/14/2023 1:41 PM EDT Oxygen Saturation 96% 09/14/2023 1:41 PM EDT Inhaled Oxygen Concentration - - Weight 93 kg (205 lb 2 oz) 09/14/2023 1:41 PM ED T Height - - Body Mass Index 29.43 08/25/2023 7:51 AM EST documented in this encounter Progress Notes * Carson Gallardo DO - 09/14/2023 1:47 PM EDT Images from the original note were not included. Assessment and Plan Type 2 diabetes mellitus with hemoglobin A1c goal of less than 8.0% (HCC) Controlling A1C very well With current diet and medications Abnormal finding on imaging Likely meningioma on PET But advised MRI for confirmation - MRI BRAIN WITH CONTRAST; Future Diabetes mellitus with nephropathy (HCC) stable - HEMOGLOBIN A1C; Future HTN, goal below 130/80 Stable BP today Hypothyroidism, unspecified type Continue to monitor labs Paroxysmal atrial flutter (HCC) Open-angle glaucoma, unspecified glaucoma stage, unspecified laterality, unspecified open-angle glaucoma type Dyslipidemia, goal LDL below 100 Chronic pain of right knee - XR KNEE 4 OR MORE VIEWS Malignant melanoma of face (HCC+) Advise f/u with oncology as currently scheduled History of Present Illness Dylan Owen is a 73 year old male that presents for Return Visit (Pt here for return visit.) Presents in f/u today Overall has been doing well But has ongoing work with oncology Regarding the melanoma - PET was negative Which is very reassuring But did show possible meningioma in brain? Has lost weight and improved diet Physical Exam Vitals: 09/14/23 1341 Temp: 36.7 C (98 F) Pulse: 77 Resp: 16 SpO2: 96% BP: 110/62 Physical Exam Constitutional: Appearance: Normal appearance. HENT: Head: Normocephalic and atraumatic. Eyes: Extraocular Movements: Extraocular movements intact. Pupils: Pupils are equal, round, and reactive to light. Cardiovascular: Rate and Rhythm: Normal rate and regular rhythm. Pulmonary: Effort: Pulmonary effort is normal. Breath sounds: Normal breath sounds. Neurological: General: No focal deficit present. Mental Status: He is alert and oriented to person, place, and time. Psychiatric: Mood and Affect: Mood normal. Behavior: Behavior normal. Wrap-Up Follow-up: Return in about 6 months (around 03/16/2024). | Check-out note: Every 6 months if possible - schedule next one with [facility] is ok Time: Total time today was 45 minutes excluding any time spent in the performance of separately billed services. documented in this encounter Plan of Treatment Upcoming Encounters Date Type Department Care Team (Late st Contact Info) Description 09/15/2023 7:50 AM EDT Laboratory Laboratory [facility] [place] [address] [place] [phone] Danielle, Lab [facility] [address] [facility] [place] [address] 09/15/2023 9:00 AM EDT Hem/Onc Treatment Hematology/Oncology Treatment, [place] [address] [facility] [place] [phone] Danielle, Chair [address] [facility] [address] [facility] [place] [address] 10/06/2023 9:30 AM EDT Office Visit Hematology/Oncology [facility] [place] [address] [place] [phone] Susie Epstein MD [address] [place] [address] 10/06/2023 10:00 AM EDT Hem/Onc Treatment Hematology/Oncology Treatment, [place] [address] [facility] [place] [phone] 03/17/2024 8:20 AM EDT [facility] [address] [place] [address] Martha Gr CRNP [address] [place] [address] 09/15/2024 10:00 AM EDT [facility] [address] [place] [address] Carson Gallardo DO [address] [place] [address] Pending Results Name Type Priority Associated Diagnoses Date /Time XR KNEE 4 OR MORE VIEWS Medical Imaging Routine Chronic pain of right knee 09/14/2023 2:33 PM EDT Scheduled Orders Name Type Priority Associated Diagnoses Orde r Schedule MRI BRAIN WITH CONTRAST Medical Imaging Routine Abnormal finding on imaging Expected: 09/14/2023, Expires: 10/14/2024 HEMOGLOBIN A1C Lab Routine Diabetes mellitus with nephropathy (HCC) Expected: 09/14/2023 (Approximate), Expires: 09/13/2024 Scheduled Procedures Name Priority Associated Diagnoses Date/Ti [...] this encounter Medical Devices Implanted Type Area Refrigeration Tech Device Identifier Shelf Expiration Date Model / Serial / Lot Port Implant W/8f Poly Cath - [id number] Implanted:Qty : 1 on 04/22/2023 by Kaiden Armenta MD at OR [facility] Right: Chest CR BARD : PERIPHERAL VASCULAR [id number] 11/19/2024 [id number] / / [id number] documented as of this encounter Visit Diagnoses Diagnosis Type 2 diabetes mellitus with hemoglobin A1c goal of less than 8.0% (HCC)- Primary Abnormal finding on imaging Other nonspecific (abnormal) findings on radiological and other examinations of body structure 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, not stated as uncontrolled HTN, goal below 130/80 Unspecified essential hypertension Hypothyroidism, unspecified type Paroxysmal atrial flutter (HCC) Atrial flutter Open-angle glaucoma, unspecified glaucoma stage, unspecified laterality, unspecified open-angle glaucoma type Dyslipidemia, goal LDL below 100 Other and unspecified hyperlipidemia Chronic pain of right knee Malignant melanoma of face (HCC) Malignant melanoma of skin of other and unspecified parts of face documented in this encounter Advance Directives Documents on File Type Date Recorded Patient Care Services Manager Expl anation Advance Directives and Living Will 09/07/2017 LIVING WILL Latest Code Status on File Code Status Date Activated Date Inactivated Comments Full Code 03/04/2023 7:10 AM 03/04/2023 3:47 PM Question Answer Comments Discussion of Advance Directives occurred with: Not Discussed due to patient's condition Care Teams Rack Maker Relationship Specialty Start Date End Date Carson Gallardo DO [address] [place] [id number] PCP - General Family Medicine 07/18/19 documented as of this encounter"
--- OUTSIDE RECORDS SUMMARY | 2023-10-08 03:55 | External Medical Summary | Summary of Care ---
Author Name Unknown Organization [facility] Address [address] [place] [address] Phone [phone] Care Team Providers Care Spooler Name Role Phone Carson Gallardo Primary Care Provider Reason for Visit * Reason Comments Chemotherapy C9/D1 - Keytruda * Episode Based Medications (Routine) - Authorized Specialty Diagnoses / Procedures Referred By Contyakelin t Referred To Contact Diagnoses Malignant melanoma of face (HCC) Procedures [place] INJ PEMBROLIZUMAB Susie Epstein MD [address] [place] [address] Anc Hem/Onc [place] DEPT CLOSED - 05/05/23 [address] [place] [address] Referral ID Status Reason Start Date Expiration Date V isits Requested Visits Authorized [id number] Authorized 03/17/2023 11/22/2023 99 99 Encounter Details Date Type Department Care Team (Latest Contact Info) Description 09/15/2023 9:00 AM EDT Hem/Onc Treatment Hematology/Oncolog y Treatment, [place] [address] [place] [address] Danielle, Chair 10 Hem Onc [address] [place] [address] Malignant melanoma of face (HCC)*; Encounter for [...] METFORMIN HCL ER (OSM) 500 MG PO [id number]:Me tabolon Quantose IR Research Study*[id number] Take as directed by study staff 400 [...] meds) 100 Tablet 3 06/25/2023 Active Ipratropium [place] 0.03 % Nasal Solution (Atrovent) Administer 2 [...] Impaired fasting glucose 04/11/201404/2020 Metabolon Quantose IR [place] Study*[id number] 01/20/2014 04/10/2014 Overview: METABOLON QUANTOSE IR STUDY. PROJECT: #[id number], ELECTRICAL LOGGING OPERATOR: Tarun Nieto MD/ Dejuan Magdaleno MD. SUMMARY: The Use of a Novel Insulin Resistance Test as a Monitoring Indicator of Glycemic Control in Prediabetics and Diabetics treated with metformin combined with lifestyle intervention. CONTACTS: During normal business hours, contact Lily Burgos RN, BSN at ; after hours Sheet Music Salesperson via the [facility] hospital pilot plant operator helper Impotence of organic origin 01/09/2014 08/31/2019 Epididymitis 01/09/2014 03/09/2017 Elevated prostate specific antigen (PSA) 01/09/2014 01/09/2014 Dry eye syndrome 12/31/2012 08/31/2019 Low testosterone 12/31/2012 08/31/2019 Family history of GI malignancy 07/09/2012 08/31/2019 Other specified hypothyroidism 08/19/2006 08/31/2019 ADVANCE DIRECTIVE INFORMATION 2006 08/31/2019 Overview: Information given to patient. DISC DIS [id number] - bulge L3-4, L4-5 02/21/2002 08/31/2019 FAM [...] Sign Reading Time Taken Comments Blood Pressure 118/75 09/15/2023 8:50 AM EDT Pulse 71 09/15/2023 8:50 AM EDT Temperature 37 C (98.6 F) 09/15/2023 8:50 AM EDT Respiratory Rate 16 09/15/2023 8:50 AM EDT Oxygen Saturation 94% 09/15/2023 8:50 AM EDT Inhaled Oxygen Concentration - - Weight 94.2 kg (207 lb 11.2 oz) 09/15/2023 8:50 AM EDT Height - - Body Mass Index 29.8 08/25/2023 7:51 AM EST documented in this encounter Nursing Notes * Jessica Goodwin RN - 09/15/2023 9:47 AM EDT Goals: Patient will remain free from injury. Possible barriers to meeting goals: ambulating with IV pole Stability of the patient: Moderately stable - low risk of patient condition declining or worsening Summary regarding today's goals: Met: pt remained free of harm today Patient tolerated treatment well without any acute issues or problems. Patient left facility in stable condition and denied any further needs. * Jessica Goodwin RN - 09/15/2023 9:24 AM EDT Chair 11. Port accessed. Patient feeling well, no complaints. Chemotherapy/Immunotherapy agents: KEYTRUDA Consent for chemotherapy drug treatment complete, dated, and signed? yes, date - 03/18/2023 Treatment lab parameters met? Yes Has treatment weight changed > than 10%? No Treatment preauthorized? Yes VITALS Filed Vitals: 09/15/23 0850 BP: 118/75 Pulse: 71 Resp: 16 Temp: 37 C (98.6 F) TempSrc: Tympanic SpO2: 94% Weight: 94.2 kg (207 lb 11.2 oz) Urine protein: N/A Patient education completed for treatment? Yes Blood transfusion consent signed and complete? NA Return appointment scheduled? Yes Patient had provider visit today? No - If no provider visit must complete Pretreatment Assessment Functional Status: Functional status at today's visit: Fully active, [...] symptoms or adverse side effects during treatment. PRE-TREATMENT ASSESSMENT: NEURO: denies symptoms CV/RESP: denies symptoms GI/: denies symptoms OTHER: denies any additional symptoms PAIN: 0 Safety and Risk for Injury Patient will remain free from injury. Ensure appropriate safety devices are available. Provide and maintain safe environment. documented in this encounter Plan of Treatment Upcoming Encounters Date Type Department Care Team (Late st Contact Info) Description 10/06/2023 9:10 AM EDT Laboratory Laboratory [facility] Danielle [place] [address] [facility] [place] [phone] [address] [place] [address] 10/06/2023 9:30 AM EDT Office Visit Hematology/Oncology [facility] Danielle [place] [address] [place] [address] [phone] Susie Epstein MD [address] [facility] [place] [address] 10/06/2023 10:00 AM EDT Hem/Onc Treatment Hematology/Oncology Treatment, [place] [address] [facility] [place] [phone] 03/17/2024 8:20 AM EDT Office Visit [facility] [address] [place] [address] Martha Gr CRNP [address] [place] [address] 09/15/2024 10:00 AM EDT Office Visit [facility] [address] [place] [address] Carson Gallardo DO [address] [place] [address] Scheduled Procedures Name Priority Associated Diagnoses Date/Ti [...] 024, 12/11/2022, 05/28/2022, Additional history exists TSH 08/24/2024 08/25/2023, 07/23, 07/14/2023, Additional history exists GFR 09/14/2024 09/15/2023, 0310/2023, 08/04/2023, Additional history exists COLONOSCOPY-EVERY 5 YRS [...] this encounter Medical Devices Implanted Type Area Cell Tuber Machine Device Identifier Shelf Expiration Date Model / Serial / Lot Port Implant W/8f Poly Cath - [id number] Implanted:Qty : 1 on 04/22/2023 by Kaiden Armenta MD at OR [facility] Right: Chest CR BARD : PERIPHERAL VASCULAR [id number] 11/19/2024 [id number] / / [id number] documented as of this encounter Visit Diagnoses Diagnosis Malignant melanoma of face (HCC)- Primary Malignant melanoma of skin of other and unspecified parts of face Encounter for antineoplastic immunotherapy documented in this encounter Administered Medications Active Administered Medications - up to 3 most recent administrations Medication Order MAR Action Action Date Dose Rate Site diphenhydrAMINE (Benadryl) inj 50 mg 50 mg, IV Push, ONCE PRN Other, Hypersensitivity Reaction, Starting on Thu09/15/23 at 0902, Until Thu09/16/23 at 0901, For 24 hours EPINEPHrine 1 MG/ML inj 0.3 mg 0.3 mg, Intramuscular, ONCE PRN Other, Hypersensitivity Reaction or Anaphylaxis, Starting on Thu09/15/23 at 0902, Until Thu09/16/23 at 0901, For 24 hours hEParin 100 UNIT/ML Lock Flush inj 500 Units 500 Units (5 mL), IV Lock, PRN Other, IV Flush, Starting on Thu09/15/23 at 0902, Until Thu09/16/23 at 0901, For 24 hours, Do not flush if lock, PICC, or central line not in place; IV infusing or unable to flush. Given 09/15/2023 9:50 AM EDT 500 Units Hydrocortisone Sod Suc (PF) (Solu-Cortef) inj 100 mg 100 mg, IV Push, ONCE PRN Other, Hypersensitivity Reaction, Starting on Thu09/15/23 at 0902, Until Thu09/16/23 at 0901, For 24 hours NSS infusion Intravenous, at 50 mL/hr, PRN, Starting on Thu09/15/23 at 1015, Until Discontinued, KVO Start Infusion 09/15/2023 9:12 AM EDT 50 mL/hr oxygen GAS Inhalation, OXYGEN, First dose on Thu09/15/23 at 0945, Until Discontinued, Device/Managed by: Low Flow Device, Goal SPO2 (%): 91-95, Starting Device: Nasal Cannula, Initial Flow Rate (LPM): 2, Lowest Support: Nasal Cannula: Flow 0-6 LPM. Titrate up/down by 1 LPM., Higher Support: Non-Rebreather (NRB) Mask: Minimum of 10 LPM. Titrate to maintain bag inflation., Titration Interval: Q2 minutes and as needed., Notify Provider: For sudden DECREASE in resting SPO2 to less than 85% and when escalating delivery device. sodium chloride 0.9 % flush central line 10 mL 10 mL, IV Push, PRN Other, IV Flush, Starting on Thu09/15/23 at 0902, Until Thu09/16/23 at 0901, For 24 hours, Do not flush if lock, PICC, or central line not in place; IV infusing or unable to flush. Given 09/15/2023 9:50 AM EDT 10 mL Inactive Administered Medications - up to 3 most recent administrations Medication Order MAR Action Action Date Dose Rate Site Pembrolizumab (Keytruda) 200 mg in NSS 100 mL infusion 200 mg, IV Piggyback, ONCE, 1 dose, On Thu09/15/23 at 1045, Administer over 30 Minutes, Infuse through 0.2 micron filter. Start Infusion 09/15/2023 9:12 AM EDT 200 mg 200 mL/hr documented in this encounter Advance Directives Documents on File Type Date Recorded Patient Carpenters Supervisor Expl anation Advance Directives and Living Will 09/07/2017 LIVING WILL Latest Code Status on File Code Status Date Activated Date Inactivated Comments Full Code 03/04/2023 7:10 AM 03/04/2023 3:47 PM Question Answer Comments Discussion of Advance Directives occurred with: Not Discussed due to patient's condition Care Teams Spooler Relationship Specialty Start Date End Date Carson Gallardo DO [address] [place] [phone] PCP - General Family Medicine 07/18/19 documented as of this encounter
--- OUTSIDE RECORDS SUMMARY | 2023-10-08 03:55 | External Medical Summary ---
Author Name Unknown Address Unknown Organization K09:[facility] [address] [place] [address] Laboratory Report Ordering Provider Test Date Status CHRIS MCCRAY 09/15/2023 08:00:25 Final Observation Date Value Abnormality Reference (Units ) Status BUN 09/15/2023 08:00:25 13 6-20 (mg/dL) Final Creatinine 09/15/2023 08:00:25 0.9 0.6-1.2 (mg/dL) Final Glomerular filtration rate/1.73 sq M.predicted [Volume Rate/Area] in Serum, Plasma or Blood by Creatinine-based formula (CKD-EPI) 09/15/2023 08:00:25 90 >=60 (mL/min) Final eGFR is calculated based on the CKD-EPI 2020 equation Sodium 09/15/2023 08:00:25 132 Below low normal 135 -146 (mmol/L) Final Potassium 09/15/2023 08:00:25 4.7 3.5-5.1 (m mol/L) Final Cl 09/15/2023 08:00:25 97 Below low normal 98- 107 (mmol/L) Final CO2 09/15/2023 08:00:25 25 22-32 (mmo l/L) Final Anion gap 09/15/2023 08:00:25 10 7-15 (mmol /L) Final Glucose 09/15/2023 08:00:25 138 Above high normal 70 -120 (mg/dL) Final Albumin 09/15/2023 08:00:25 4.0 3.8-5.0 (g /dL) Final AST (Aspartate aminotransferase) 09/15/2023 08:00:25 31 10-50 (U/L) Fin al Alk Phos 09/15/2023 08:00:25 124 35-130 (U/ L) Final Bilirubin, Total 09/15/2023 08:00:25 0.6 <=1 .2 (mg/dL) Final Calcium 09/15/2023 08:00:25 9.8 8.4-10.2 ( mg/dL) Final Protein 09/15/2023 08:00:25 8.2 6.0-8.3 (g /dL) Final ALT (Alanine aminotransferase) 09/15/2023 08:00:25 21 10-50 (U/L) Rodrick crocker Performing Location [facility] [address] [place] [address]
--- OUTSIDE RECORDS SUMMARY | 2023-10-08 03:55 | External Medical Summary ---
Author Name Unknown Address Unknown Organization K09:[facility] [address] [place] [address] Laboratory Report Ordering Provider Test Date Status CHRIS MCCRAY 09/15/2023 08:00:25 Final Observation Date Value Abnormality Reference (Units ) Status SYNC LEUKOCYTES IN BLOOD BY AUTOMATED COUNT 09/15/2023 08:00:25 7.30 4.00-10.80 (K/uL) Final Segs 09/15/2023 08:00:25 39.2 Below low normal 40.0-75.0 (%) Final Lymphs % 09/15/2023 08:00:25 34.7 18.0-42.0 (%) Final Monos 09/15/2023 08:00:25 26.0 Above high normal 1.0-11.0 (%) Final Eosinophils 09/15/2023 08:00:25 0.0 0.0-6.0 (%) Final Basos 09/15/2023 08:00:25 0.1 0.0-2.0 (%) Final Absolute Segs 09/15/2023 08:00:25 2.86 1.80-7.70 (K/uL) Final Lymphs, absolute 09/15/2023 08:00:25 2.53 1.00-4.80 (K/ul) Final Monos, Abs 09/15/2023 08:00:25 1.90 Above high normal 0.00-1.10 (K/uL) Final Eos, Abs 09/15/2023 08:00:25 0.00 0.00-0.70 (K/uL) Final Basos, Abs 09/15/2023 08:00:25 0.01 0.00-0.20 (K/uL) Final Performing Location [facility] [address] [place] [address]
--- OUTSIDE RECORDS SUMMARY | 2023-10-08 03:55 | External Medical Summary | Summary of Care ---
Author Name Unknown Organization [facility] Address [address] [place] [address] Phone [phone] Care Team Providers Care Director Career Name Role Phone Carson Gallardo DO Primary Care Provider Reason for Visit * Reason Comments Medication Refill Encounter Details Date Type Department Care Team (Late st Contact Info) Description 09/16/2023 Refill Otolaryngology [facility] [address] [facility] [place] [address] Maude Granados [facility] [address] [facility] [address] Allergies Active Allergy Reactions Criticality Noted Date Comments Sulfamethoxazole-Trimethop rim Fever,Other (Please comment) 09/13/2019 documented as of this encounter (statuses as of 09/16/2023) Medications Medication Sig Dispensed Refills Start Date End Date Status FISH OIL 1000 MG PO CAPS Take by mouth. 0 0 2006 Active CENTRUM SILVER PO TABS Take by mouth. 0 Active METFORMIN HCL ER (OSM) 500 MG PO [id number] etabolon Quantose IR Research Study*[id number] Take as directed by study staff 400 [...] Anxiety. 30 Tablet 0 08/19/2023 Active Ipratropium [place] 0.03 % Nasal Solution (Atrovent) Administer 2 Sprays into nostril in the morning and 2 Sprays before bedtime. 30 mL 3 09/16/2023 Active Ipratropium [place] 0.03 % Nasal Solution (Atrovent) Administer 2 Sprays into nostril in the morning and 2 Sprays before bedtime. 30 mL 3 06/24/2023 4 Discontinue d(Refill) documented as of this encounter (statuses as of 09/16/2023) Active Problems Problem Noted Date Diagnosed Date [...] as of this encounter (statuses as of 09/16/2023) Resolved Problems Problem Noted Date Diagnosed Date Resolved Date Family history of malignant neoplasm of prostate 03/11/2018 08/31/2019 Impaired fasting glucose 04/11/201404/2020 Metabolon Quantose IR [facility] Study*[id number] 01/20/2014 04/10/2014 Overview: METABOLON QUANTOSE IR STUDY. PROJECT: #[id number], RISK CONTROL CONSULTANT: Tarun Nieto MD/ Dejuan Magdaleno MD. SUMMARY: The Use of a Novel Insulin Resistance Test as a Monitoring Indicator of Glycemic Control in Prediabetics and Diabetics treated with metformin combined with lifestyle intervention. CONTACTS: During normal business hours, contact Lily Burgos RN, BSN at ; after hours Car Repairer Helper via the [facility] hospital blade operator Impotence of organic origin 01/09/2014 08/31/2019 Epididymitis 01/09/2014 03/09/2017 Elevated prostate specific antigen (PSA) 01/09/2014 01/09/2014 Dry eye syndrome 12/31/2012 08/31/2019 Low testosterone 12/31/2012 08/31/2019 Family history of GI malignancy 07/09/2012 08/31/2019 Other specified hypothyroidism 08/19/2006 08/31/2019 ADVANCE DIRECTIVE INFORMATION 2006 08/31/2019 Overview: Information given to patient. DISC DIS [id number] - bulge L3-4, L4-5 02/21/2002 08/31/2019 FAM HX-DIABETES MELLITUS - Dad 01/31/1999 08/31/2019 Mixed dyslipidemia 02/01/1998 9 Overview: Per Lipid Taxonomy. Idiopathic urticaria 020 documented as of this encounter (statuses as of 09/16/2023) Immunizations Name Administration Dates Next Due COVID-19 [...] encounter Miscellaneous Notes * Telephone Encounter - Maude Granados DO - 09/16/2023 8:11 AM EDTSigned Prescriptions: Disp Refills Ipratropium [place] 0.03 % Nasal Solution *30 mL 3 Sig: Administer 2 Sprays into nostril in the morning and 2 Sprays before bedtime.Authorizing Provider: MAUDE GRANADOS documented in this encounter Plan of Treatment Upcoming Encounters Date Type Department Care Team (Late st Contact Info) Description 10/06/2023 9:10 AM EDT Laboratory Laboratory [facility] [place] [address] [place] [phone] [place] [address] [address] [place] [address] 10/06/2023 9:30 AM EDT Office Visit Hematology/Oncology [facility] [place] [address] [address] [place] [phone] Susie Epstein MD [address] [place] [address] 10/06/2023 10:00 AM EDT Hem/Onc Treatment Hematology/Oncology Treatment, [place] [address] [facility] [address] [place] [phone] 03/17/2024 8:20 AM EDT Office Visit [facility] [address] [place] [address] Martha Gr CRNP [address] [place] [address] 09/15/2024 10:00 AM EDT Office Visit [facility] [address] [place] [address] Carson Gallardo, [address] [place] [address] Scheduled Procedures Name Priority Associated Diagnoses Date/Ti [...] this encounter Medical Devices Implanted Type Area Slitting Machine Operator Helper Device Identifier Shelf Expiration Date Model / Serial / Lot Port Implant W/8f Poly Cath - [id number] Implanted:Qty : 1 on 04/22/2023 by Kaiden Armenta MD at [facility] Right: Chest CR BARD : PERIPHERAL VASCULAR [id number] 11/19/2024 [id number] / / [id number] documented as of this encounter Advance Directives Documents on File Type Date Recorded Patient Assistant Teacher Primary Expl anation Advance Directives and Living Will 09/07/2017 LIVING WILL Latest Code Status on File Code Status Date Activated Date Inactivated Comments Full Code 03/04/2023 7:10 AM 03/04/2023 3:47 PM Question Answer Comments Discussion of Advance Directives occurred with: Not Discussed due to patient's condition Care Teams Director Career Relationship Specialty Start Date End Date Carson Gallardo DO [address] [address] PCP - General Family Medicine 07/18/19 documented as of this encounter
--- OUTSIDE RECORDS SUMMARY | 2023-10-08 03:56 | External Medical Summary | Summary of Care ---
Author Name Unknown Organization [facility] Address [address] [place] [address] Phone [phone] Care Team Providers Care Tip Bander Name Role Phone Catherine Gallardo DO Primary Care Provider Reason for Visit * Reason Onset Date Comments Medication Refill 08/18/2023 Encounter Details Date Type Department Care Team (Late st Contact Info) Description 08/18/2023 Refill Family Practice [facility] [address] [place] [address] Catherine Gallardo DO [address] [place] [address] Allergies Active Allergy Reactions Criticality Noted Date Comments Sulfamethoxazole-Trimethop rim Fever,Other (Please comment) 09/13/2019 documented as of this encounter (statuses as of 08/19/2023) Medications Medication Sig Dispensed Refills Start Date End Date Status FISH OIL 1000 MG PO CAPS Take by mouth. 0 0 2006 Active CENTRUM SILVER PO TABS Take by mouth. 0 Active ADVIL 200 MG PO CAPS Take by mouth. 0 Active Loratadine 10 MG Oral CapsuleIndication [...] meds) 100 Tablet 3 06/25/2023 Active Ipratropium [place] 0.03 % Nasal Solution (Atrovent) Administer 2 [...] for Anxiety. 30 Tablet 0 08/19/2023 Active LORAzepam (ATIVAN) 0.5 MG Tablet Take 1 Tab by mouth every 6 hours as needed for Anxiety. 30 Tab 0 02/13/2020 4 Discontinue d(Refill) documented as of this encounter (statuses as of 08/19/2023) Active Problems Problem Noted Date Diagnosed Date [...] as of this encounter (statuses as of 08/19/2023) Resolved Problems Problem Noted Date Diagnosed Date Resolved Date Family history of malignant neoplasm of prostate 03/11/2018 08/31/2019 Impaired fasting glucose 04/11/201404/2020 Metabolon Quantose IR [facility] Study*[id number] 01/20/2014 04/10/2014 Overview: METABOLON QUANTOSE IR STUDY. PROJECT: #[id number], COMMERCIAL DRAFTER: Tarun Nieto MD/ Dejuna Magdaleno MD. SUMMARY: The Use of a Novel Insulin Resistance Test as a Monitoring Indicator of Glycemic Control in Prediabetics and Diabetics treated with metformin combined with lifestyle intervention. CONTACTS: During normal business hours, contact Lily Burgos, RN, BSN at ; after hours Marine Welder [facility] margarine churn operator Impotence of organic origin 01/09/2014 08/31/2019 Epididymitis 01/09/2014 03/09/2017 Elevated prostate specific antigen (PSA) 01/09/2014 01/09/2014 Dry eye syndrome 12/31/2012 08/31/2019 Low testosterone 12/31/2012 08/31/2019 Family history of GI malignancy 07/09/2012 08/31/2019 Other specified hypothyroidism 08/19/2006 08/31/2019 ADVANCE DIRECTIVE INFORMATION 2006 08/31/2019 Overview: Information given to patient. DISC DIS [id number] - bulge L3-4, L4-5 02/21/2002 08/31/2019 FAM HX-DIABETES MELLITUS - Dad 01/31/1999 08/31/2019 Mixed dyslipidemia 02/01/1998 9 Overview: Per Lipid Taxonomy. Idiopathic urticaria 020 documented as of this encounter (statuses as of 08/19/2023) Immunizations Name Administration Dates Next Due COVID-19 [...] encounter Miscellaneous Notes * Telephone Encounter - Catherine Gallardo DO - 08/19/2023 3:09 PM EST Signed Prescriptions: Disp Refills LORazepam 0.5 MG Oral Tablet (Ativan) 30 Tab*0 Sig: Take 1 Tablet by mouth every 6 hours as needed for Anxiety. Authorizing Provider: CATHERIEN GALLARDO * Telephone Encounter - Karthik Powell, [facility] - 08/19/2023 9:27 AM ESTPending Prescriptions: Disp Refills LORazepam 0.5 MG Oral Tablet (Ativan) 30 Tab*0 Sig: Take 1 Tablet by mouth every 6 hours as needed for Anxiety. * Telephone Encounter - Karthik Powell, [facility] - 08/19/2023 9:26 AM EST I have reviewed the patients controlled substance dispensing history in the Prescription Drug Monitoring Program in compliance with the [facility] regulations before prescribing a controlled substance. PDMP checked on 08/19/2023. Pending Prescriptions: Disp Refills LORazepam 0.5 MG Oral Tablet (Ativan) 30 Tab*0 Sig: Take 1 Tablet by mouth every 6 hours as needed for Anxiety. Last Visit: 03/24/2023 (in office), Visit date not found (telemedicine) Next Visit: 09/14/2023 Date medication was last filled: 02/13/20 Date medication is due for refill: 02/19/20 Pharmacy: [facility] Is this request for a controlled substance? Yes and Urine Drug Screen Not completed Toxicology results: No results found for this or any previous visit. Please approve if appropriate. Thank You, Karthik Salvador [facility] Clinical Pharmacist Centralized Clinical Pharmacy Services ([facility]) (formerly Telepharmacy) 08/19/2023, 9:26 AM documented in this encounter Plan of Treatment Upcoming Encounters Date Type Department Care Team (Late st Contact Info) Description 08/25/2023 7:30 AM EST Laboratory Laboratory [facility] [place] [address] [place] [phone] Danielle, Lab [facility] [address] [facility] [place] [address] 08/25/2023 8:00 AM EST Office Visit Hematology/Oncology [facility] [place] [address] [place] [phone] Susie Epstein MD [address] [place] [address] 08/25/2023 8:30 AM EST Hem/Onc Treatment Hematology/Oncology Treatment, [place] [address] [place] [phone] Danielle, Chair 5 Hem Onc [facility] [address] [facility] [place] [address] 09/14/2023 1:40 PM EDT Office Visit Family [facility] [address] [place] [address] Catherine Gallardo DO [address] [place] [address] Scheduled Procedures Name Priority Associated Diagnoses Date/Ti [...] 024, 12/11/2022, 05/28/2022, Additional history exists GFR 08/04/2024 08/04/2023, 06/23, 06/23/2023, Additional history exists TSH 08/04/2024 08/04/2023, 06/23, 06/23/2023, Additional history exists COLONOSCOPY-EVERY 5 YRS AGES [...] this encounter Medical Devices Implanted Type Area Gear Coding Machine Operator Device Identifier Shelf Expiration Date Model / Serial / Lot Port Implant W/8f Poly Cath - [id number] Implanted:Qty : 1 on 04/22/2023 by Kaiden Armenta MD at [facility] Right: Chest CR BARD : PERIPHERAL VASCULAR [id number] 11/19/2024 [id number] / / [id number] documented as of this encounter Advance Directives Documents on File Type Date Recorded Patient Delivery Clerk Expl anation Advance Directives and Living Will 09/07/2017 LIVING WILL Latest Code Status on File Code Status Date Activated Date Inactivated Comments Full Code 03/04/2023 7:10 AM 03/04/2023 3:47 PM Question Answer Comments Discussion of Advance Directives occurred with: Not Discussed due to patient's condition Care Teams Tip Bander Relationship Specialty Start Date End Date Catherine Gallardo DO [address] [place] [address] PCP - General Family Medicine 07/18/19 documented as of this encounter
--- OUTSIDE RECORDS SUMMARY | 2023-10-08 03:56 | External Medical Summary | Summary of Care ---
Author Name Unknown Organization [facility] Address [address] [place] [address] Phone [phone] Care Team Providers Care Dry House Operator Name Role Phone Carson Gallardo Primary Care Provider Reason for Visit * Reason Comments Chemotherapy C5D1 Keytruda * Episode Based Medications (Routine) - Authorized Specialty Diagnoses / Procedures Referred By Contyakelin t Referred To Contact Diagnoses Malignant melanoma of face (HCC) Procedures [place] INJ PEMBROLIZUMAB Susie Epstein MD [address] [place] [address] Anc Hem/Onc [facility] DEPT CLOSED - 05/05/23 [facility] [place] [address] Referral ID Status Reason Start Date Expiration Date V isits Requested Visits Authorized [id number] Authorized 03/17/2023 11/22/2023 99 99 Encounter Details Date Type Department Care Team (Latest Contact Info) Description 06/23/2023 10:30 AM EST Hem/Onc Treatment Hematology/Oncolog y Treatment, [place] [address] [place] [address] Danielle, Chair 3 Hem Onc [address] [place] [address] Malignant melanoma of face (HCC)*; Encounter for antineoplastic chemotherapy Allergies Active Allergy Reactions Criticality Noted Date Comments Sulfamethoxazole-Trimethop rim Fever,Other (Please comment) 09/13/2019 documented as of this encounter (statuses as of 08/18/2023) Medications Medication Sig Dispensed Refills Start Date End Date Status FISH OIL 1000 MG PO CAPS Take by mouth. 0 0 6 Active CENTRUM SILVER PO TABS Take by mouth. 0 Active ADVIL 200 MG PO CAPS Take by mouth. 0 Active Loratadine 10 MG Oral CapsuleIndicatio ns:in am Take 1 Capsule by mouth in the morning. 0 Active diphenhydrAMINE HCl 25 MG Oral Capsule Take 1 Capsule by mouth at bedtime. 0 Active LORAzepam (ATIVAN) 0.5 MG Tablet Take 1 Tab by mouth every 6 hours as needed for Anxiety. 30 Tab 0 0 Active Metamucil [facility] Fiber 58.12 % Oral Packet (Psyllium) Take 1 Packet by mouth in the morning and 1 Packet before bedtime. 0 Active Acetaminophen 500 MG Oral TabletIndication s:as needed Take 1 Tablet by mouth every 6 hours as needed. 0 Active Lidocaine-Priloc elba 2.5-2.5 % External Cream (Emla)Indication s:Malignant melanoma of face (HCC) APPLY TO SKIN OVER MEDIPORT & COVER 1HR PRIOR TO ACCESSING. 30 g 1 3 Active metFORMIN HCl ER 500 MG Oral Tablet Extended Release 24 Hour (Glucophage XR) Take 2 Tablets by mouth at bedtime. 180 Tablet 3 3 06/24/19 24 Discontinued Atorvastatin Calcium 80 MG Oral Tablet (Lipitor) TAKE 1 TABLET BY MOUTH AT BEDTIME 90 Tablet 3 3 06/24/19 24 Discontinued(Ref ill) Ipratropium [place] 0.03 % Nasal Solution (Atrovent) ADMINISTER 2 SPRAYS IN EACH NOSTRIL TWO TIMES DAILY 30 mL 3 3 06/24/19 24 Discontinued(Ref ill) Omeprazole 20 MG Oral Capsule Delayed Release (PriLOSEC) Take 1 Capsule by mouth in the morning. 90 Capsule 3 3 06/24/19 24 Discontinued(Ref ill) Terbinafine HCl 1 % External Cream (LamISIL AT ATHLETE'S FOOT)Indications :Tinea pedis, unspecified laterality Apply to the affected area of the feet twice daily for 14-28 days. 42 g 5 3 06/24/19 24 Discontinued(Ref ill) Levothyroxine Sodium 88 MCG Oral Tablet (Levoxyl) Take 1 Tablet by mouth daily first thing in the morning. (at least 30 min prior to breakfast or other meds) 90 Tablet 3 3 06/24/19 24 Discontinued(Ref ill) Lisinopril 2.5 MG Oral Tablet (Prinivil) Take 1 Tablet by mouth in the morning. 30 Tablet 11 3 06/24/19 24 Discontinued(Ref ill) Apixaban 5 MG Oral Tablet (Eliquis)Indicat ions:Typical atrial flutter (HCC),HTN, goal below 140/90 Take 1 Tablet by mouth in the morning and 1 Tablet before bedtime. 180 Tablet 3 3 06/24/19 24 Discontinued(Ref ill) Metoprolol Succinate ER 25 MG Oral Tablet Extended Release 24 Hour (toPROL XL)Indications:T ypical atrial flutter (HCC),HTN, goal below 140/90 TAKE 1 TABLET BY MOUTH EVERY MORNING 90 Tablet 3 3 06/24/19 24 Discontinued(Ref ill) documented as of this encounter (statuses as of 08/18/2023) Active Problems Problem Noted Date Diagnosed Date [...] as of this encounter (statuses as of 08/18/2023) Resolved Problems Problem Noted Date Diagnosed Date Resolved Date Family history of malignant neoplasm of prostate 03/11/2018 08/31/2019 Impaired fasting glucose 04/11/201404/2020 Metabolon Quantose IR Resear Study*[id number] 01/20/2014 04/10/2014 Overview: METABOLON QUANTOSE IR STUDY. PROJECT: #[id number], REAL ESTATE ASSET MANAGER: Tarun Nieto MD/ Dejuan Magdaleno MD. SUMMARY: The Use of a Novel Insulin Resistance Test as a Monitoring Indicator of Glycemic Control in Prediabetics and Diabetics treated with metformin combined with lifestyle intervention. CONTACTS: During normal business hours, contact Lily Burgos RN, BSN at ; after hours [place] via the [facility] motion picture operator Impotence of organic origin 01/09/2014 08/31/2019 Epididymitis 01/09/2014 03/09/2017 Elevated prostate specific antigen (PSA) 01/09/2014 01/09/2014 Dry eye syndrome 12/31/2012 08/31/2019 Low testosterone 12/31/2012 08/31/2019 Family history of GI malignancy 07/09/2012 08/31/2019 Other specified hypothyroidism 08/19/2006 08/31/2019 ADVANCE DIRECTIVE INFORMATION 2006 08/31/2019 Overview: Information given to patient. DISC DIS ATO-BME-SYASUD - bulge L3-4, L4-5 02/21/2002 08/31/2019 FAM HX-DIABETES MELLITUS - Dad 01/31/1999 08/31/2019 Mixed dyslipidemia 02/01/1998 9 Overview: Per Lipid Taxonomy. Idiopathic urticaria 020 documented as of this encounter (statuses as of 08/18/2023) Immunizations Name Administration Dates Next Due COVID-19 [...] Sign Reading Time Taken Comments Blood Pressure 131/73 06/23/2023 10:35 AM EST Pulse 66 06/23/2023 10:35 AM EST Temperature 36.3 C (97.3 F) 06/23/2023 1 0:35 AM EST Respiratory Rate 12 06/23/2023 10:3 5 AM EST Oxygen Saturation 98% 06/23/2023 10: 35 AM EST Inhaled Oxygen Concentration - - Weight 95.2 kg (209 lb 12.8 oz) 024 10:35 AM EST Height - - Body Mass Index 30.1 04/22/2023 8:11 AM EDT documented in this encounter Nursing Notes * Kellie Hagen, RN - 06/23/2023 11:20 AM EST Chair 8 Pt here for chemo treatment. No complaints. Chemo agents C5D1 Keytruda Appetite "too good" Nausea/Vomiting denies Diarrhea denies Constipation denies Mucositis denies Fatigue denies Bleeding denies Infection denies Rash no but dry, itchy skin which occurs in the winter Numbness tingling denies Pain denies Radiation no ABN Labs WNL for treatment Alt in Tx: no Return in 3 weeks Safety and Risk for Injury Patient will remain free from injury. Ensure appropriate safety devices are available. Provide and maintain safe environment. Goals: Patient will remain free from injury. Possible barriers to meeting goals: ambulation with IV pole Stability of the patient: Moderately stable - low risk of patient condition declining or worsening Summary regarding today's goals: Met: patient without injury during treatment today Functional status at today's visit: Restricted in physically strenuous activity but ambulatory and able to carry out work on a light orsedentary nature, e.g. light house work, office work The drug name, dose, infusion volume, rate and route of administration, expiration date and time, appearance and physical integrity of the drug and rate set on the pump and sequencing of drug administration (as applicable) were verified by me and second sign-in RN. Patient was assessed for symptoms or adverse side effects during treatment. Pt tolerated infusion well. No complaints. Discharged in stable condition. documented in this encounter Plan of Treatment Upcoming Encounters Date Type Department Care Team (Late st Contact Info) Description 08/25/2023 7:30 AM EST Laboratory Laboratory [facility] [address] [place] [phone] Danielle, Lab [facility] [place] [address] 08/25/2023 8:00 AM EST Office Visit Hematology/Oncology [facility] 200 [facility] [place] [address] Susie Epstein MD [address] [facility] [place] [address] 08/25/2023 8:30 AM EST [facility] [address] [place] [phone] Danielle, Chair 5 Hem Onc [facility] [address] [place] [address] 09/14/2023 1:40 PM EDT Office Visit Family [facility] [address] [place] [address] Carson Gallardo DO [address] [place] [address] Scheduled Procedures Name Priority Associated Diagnoses Date/Ti [...] this encounter Medical Devices Implanted Type Area [employer] Industrial [employer] Consultant Device Identifier Shelf Expiration Date Model / Serial / Lot Port Implant W/8f Poly Cath - [id number] Implanted:Qty : 1 on 04/22/2023 by Kaiden Armenta MD at OR [facility] Right: Chest CR BARD : PERIPHERAL VASCULAR [id number] 11/19/2024 [id number] / / [id number] documented as of this encounter Visit Diagnoses Diagnosis Malignant melanoma of face (HCC)- Primary Malignant melanoma of skin of other and unspecified parts of face Encounter for antineoplastic chemotherapy documented in this encounter Administered Medications Inactive Administered Medications - up to 3 most recent administrations Medication Order MAR Action Action Date Dose Rate Site hEParin 100 UNIT/ML Lock Flush inj 500 Units 500 Units (5 mL), IV Lock, PRN Other, IV Flush, Starting on Thu06/23/23 at 1052, Until Thu06/23/23 at 1622, For 24 hours, Do not flush if lock, PICC, or central line not in place; IV infusing or unable to flush. Given 06/23/2023 11:29 AM EST 500 Units NSS infusion Intravenous, at 50 mL/hr, PRN, Starting on Thu06/23/23 at 1200, Until Thu06/23/23 at 1622, KVO Start Infusion 06/23/2023 10:50 AM EST 50 mL/hr Pembrolizumab (Keytruda) 200 mg in NSS 100 mL infusion 200 mg, IV Piggyback, ONCE, 1 dose, On Thu06/23/23 at 1230, Administer over 30 Minutes, Infuse through 0.2 micron filter. Start Infusion 06/23/2023 10:54 AM EST 200 mg 200 mL/hr sodium chloride 0.9 % flush central line 10 mL 10 mL, IV Push, PRN Other, IV Flush, Starting on Thu06/23/23 at 1052, Until Thu06/23/23 at 1622, For 24 hours, Do not flush if lock, PICC, or central line not in place; IV infusing or unable to flush. Given 06/23/2023 11:29 AM EST 10 mL documented in this encounter Advance Directives Documents on File Type Date Recorded Patient Insolvency Consultant Expl anation Advance Directives and Living Will 09/07/2017 LIVING WILL Latest Code Status on File Code Status Date Activated Date Inactivated Comments Full Code 03/04/2023 7:10 AM 03/04/2023 3:47 PM Question Answer Comments Discussion of Advance Directives occurred with: Not Discussed due to patient's condition Care Teams Dry House Operator Relationship Specialty Start Date End Date Carson Gallardo DO [address] [place] [address] PCP - General Family Medicine 07/18/19 documented as of this encounter
--- OUTSIDE RECORDS SUMMARY | 2023-10-08 03:56 | External Medical Summary | Summary of Care ---
Author Name Unknown Organization [facility] Address [address] [place] [address] Phone [phone] Care Team Providers Care Chief Writer Name Role Phone Carson Gallardo Primary Care Provider Reason for Visit * Reason Comments Chemotherapy Keytruda * Episode Based Medications (Routine) - Authorized Specialty Diagnoses / Procedures Referred By Contyakelin t Referred To Contact Diagnoses Malignant melanoma of face (HCC) Procedures [place] INJ PEMBROLIZUMAB Susie Epstein MD [address] [place] [address] Anc Hem/Onc [facility] DEPT CLOSED - 05/05/23 200 [facility] [place] [address] Referral ID Status Reason Start Date Expiration Date V isits Requested Visits Authorized [id number] Authorized 03/17/2023 11/22/2023 99 99 Encounter Details Date Type Department Care Team (Latest Contact Info) Description 08/25/2023 8:30 AM EST Hem/Onc Treatment Hematology/Oncolog y Treatment, [place] [address] [place] [address] Danielle, Chair 5 Hem Onc [address] [place] [address] Malignant melanoma of face (HCC)*; Encounter for antineoplastic chemotherapy Allergies Active Allergy Reactions Criticality Noted Date Comments Sulfamethoxazole-Trimethop rim Fever,Other (Please comment) 09/13/2019 documented as of this encounter (statuses as of 08/25/2023) Medications Medication Sig Dispensed Refills Start Date End Date Status FISH OIL 1000 MG PO CAPS Take by mouth. 0 0 2006 Active CENTRUM SILVER PO TABS Take by mouth. 0 Active ADVIL 200 MG PO CAPS Take by mouth. 0 Active METFORMIN HCL ER (OSM) 500 MG PO [id number]:Met abolon Quantose IR Research Study*[id number] Take as directed by study staff 400 [...] meds) 100 Tablet 3 06/25/2023 Active Ipratropium [place] 0.03 % Nasal Solution (Atrovent) Administer 2 [...] as of this encounter (statuses as of 08/25/2023) Active Problems Problem Noted Date Diagnosed Date [...] as of this encounter (statuses as of 08/25/2023) Resolved Problems Problem Noted Date Diagnosed Date Resolved Date Family history of malignant neoplasm of prostate 03/11/2018 08/31/2019 Impaired fasting glucose 04/11/201404/2020 Metabolon Quantose IR Resear Study*[id number] 01/20/2014 04/10/2014 Overview: METABOLON QUANTOSE IR STUDY. PROJECT: #[id number], DIE STORAGE WORKER: Tarun Nieto MD/ Dejuan Magdaleno MD. SUMMARY: The Use of a Novel Insulin Resistance Test as a Monitoring Indicator of Glycemic Control in Prediabetics and Diabetics treated with metformin combined with lifestyle intervention. CONTACTS: During normal business hours, contact Lily Burgos RN, BSN at ; after hours Skidder Operator via the [facility] hospital macaroni press operator Impotence of organic origin 01/09/2014 08/31/2019 Epididymitis 01/09/2014 03/09/2017 Elevated prostate specific antigen (PSA) 01/09/2014 01/09/2014 Dry eye syndrome 12/31/2012 08/31/2019 Low testosterone 12/31/2012 08/31/2019 Family history of GI malignancy 07/09/2012 08/31/2019 Other specified hypothyroidism 08/19/2006 08/31/2019 ADVANCE DIRECTIVE INFORMATION 2006 08/31/2019 Overview: Information given to patient. DISC DIS [id number] - bulge L3-4, L4-5 02/21/2002 08/31/2019 FAM HX-DIABETES MELLITUS - Dad 01/31/1999 08/31/2019 Mixed dyslipidemia 02/01/1998 9 Overview: Per Lipid Taxonomy. Idiopathic urticaria 020 documented as of this encounter (statuses as of 08/25/2023) Immunizations Name Administration Dates Next Due COVID-19 [...] on file documented as of this encounter Nursing Notes * Danilo Reeves RN - 08/25/2023 10:18 AM EST Infusion completed without issues. VAD flushed with NSS/Heparin per orders by Jenny Castellanos RN. VAD access removed. Pt ambulated from treatment room in stable condition. Goals: Pt will remain free from injury Possible barriers to meeting goals: IV Line Stability of the patient: Moderately stable - low risk of patient condition declining or worsening Summary regarding today's goals: Met: Pt remained free from injury. * Danilo Reeves RN - 08/25/2023 9:10 AM EST Chair 7. Pt VAD accessed without issues, flushed with NSS with positive blood return without issues. Pt denies any symptoms at this time. Fluids infusing per orders. Safety and Risk for Injury Patient will remain free from injury. Ensure appropriate safety devices are available. Provide and maintain safe environment. Chemotherapy/Immunotherapy agents: Keytruda Consent for chemotherapy drug treatment complete, dated, and signed? yes, date - 03/18/23 Treatment lab parameters met? Yes Has treatment weight changed > than 10%? No Treatment preauthorized? Yes VITALS Filed Vitals: Urine protein: N/A Patient education completed for treatment? Yes Blood transfusion consent signed and complete? NA Return appointment scheduled? Yes Patient had provider visit today? Yes - Ok to release order and treat per provider Functional Status: Functional status at today's visit: Restricted in [...] symptoms or adverse side effects during treatment. documented in this encounter Plan of Treatment Upcoming Encounters Date Type Department Care Team (Late st Contact Info) Description 09/14/2023 1:40 PM EDT Office Visit [facility] [address] [place] [address] Carson Gallardo DO [address] [place] [address] 09/15/2023 7:50 AM EDT Laboratory Laboratory [facility] Danielle [address] [place] [phone] Danielle, Lab [address] [facility] [place] [address] 09/15/2023 9:00 AM EDT [facility] [address] [facility] [place] [phone] Danielle, Chair 10 Hem Onc [place] [address] [place] [address] 10/06/2023 9:30 AM EDT Office Visit Hematology/Oncology [facility] Danielle [place] [address] [facility] [place] [phone] Susie Epstein MD [address] [facility] [place] [address] 10/06/2023 10:00 AM EDT Hem/Onc Treatment Hematology/Oncology Treatment, [place] [address] [place] [address] Scheduled Procedures Name Priority Associated Diagnoses [...] 024, 12/11/2022, 05/28/2022, Additional history exists TSH 08/04/2024 08/04/2023, 06/23, 06/23/2023, Additional history exists GFR 08/24/2024 08/25/2023, 07/23, [...] this encounter Medical Devices Implanted Type Area Mechanical Lead Device Identifier Shelf Expiration Date Model / Serial / Lot Port Implant W/8f Poly Cath - [id number] Implanted:Qty : 1 on 04/22/2023 by Kaiden Armenta MD at [facility] Right: Chest CR BARD : PERIPHERAL VASCULAR [id number] 11/19/2024 [id number] / / [id number] documented as of this encounter Visit Diagnoses Diagnosis Malignant melanoma of face (HCC)- Primary Malignant melanoma of skin of other and unspecified parts of face Encounter for antineoplastic chemotherapy documented in this encounter Administered Medications Active Administered Medications - up to 3 most recent administrations Medication Order MAR Action Action Date Dose Rate Site diphenhydrAMINE (Benadryl) inj 50 mg 50 mg, IV Push, ONCE PRN Other, Hypersensitivity Reaction, Starting on Thu08/25/23 at 0847, Until Thu08/26/23 at 0846, For 24 hours EPINEPHrine 1 MG/ML inj 0.3 mg 0.3 mg, Intramuscular, ONCE PRN Other, Hypersensitivity Reaction or Anaphylaxis, Starting on Thu08/25/23 at 0847, Until Thu08/26/23 at 0846, For 24 hours hEParin 100 UNIT/ML Lock Flush inj 500 Units 500 Units (5 mL), IV Lock, PRN Other, IV Flush, Starting on Thu08/25/23 at 0847, Until Thu08/26/23 at 0846, For 24 hours, Do not flush if lock, PICC, or central line not in place; IV infusing or unable to flush. Given 08/25/2023 9:38 AM EST 500 Units Hydrocortisone Sod Suc (PF) (Solu-Cortef) inj 100 mg 100 mg, IV Push, ONCE PRN Other, Hypersensitivity Reaction, Starting on Thu08/25/23 at 0847, Until Thu08/26/23 at 0846, For 24 hours NSS infusion Intravenous, at 50 mL/hr, PRN, Starting on Thu08/25/23 at 1000, Until Discontinued, KVO Start Infusion 08/25/2023 8:53 AM EST 50 mL/hr oxygen GAS Inhalation, OXYGEN, First dose on Thu08/25/23 at 0930, Until Discontinued, Device/Managed by: Low Flow Device, [...] Push, PRN Other, IV Flush, Starting on Thu08/25/23 at 0847, Until Thu08/26/23 at 0846, For 24 hours, Do not flush if lock, PICC, or central line not in place; IV infusing or unable to flush. Given 08/25/2023 9:38 AM EST 10 mL Inactive Administered Medications - up to 3 most recent administrations Medication Order MAR Action Action Date Dose Rate Site Pembrolizumab (Keytruda) 200 mg in NSS 100 mL infusion 200 mg, IV Piggyback, ONCE, 1 dose, On Thu08/25/23 at 1030, Administer over 30 Minutes, Infuse through 0.2 micron filter. 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
--- OUTSIDE RECORDS SUMMARY | 2023-10-08 03:56 | External Medical Summary ---
Author Name Unknown Address Unknown Organization K09:[facility] [place] [address] Laboratory Report Ordering Provider Test Date Status CHRIS MCCRAY 08/25/2023 07:40:45 Final Observation Date Value Abnormality Reference (Units ) Status WBC, Total 08/25/2023 07:40:45 6.94 4.00-10.8 0 (K/uL) Final RBC 08/25/2023 07:40:45 4.52 4.50-5.25 (M/uL) Final Hemoglobin 08/25/2023 07:40:45 13.7 Below low normal 14 .0-16.8 (g/dL) Final HCT 08/25/2023 07:40:45 41.8 40.0-48.4 (%) Final MCV 08/25/2023 07:40:45 92.5 82.0-99.5 (fL) Final MCH 08/25/2023 07:40:45 30.3 27.0-34.0 (pg) Final MCHC 08/25/2023 07:40:45 32.8 32.0-36.0 (g/dL) Final RDW 08/25/2023 07:40:45 14.6 11.5-15.5 (%) Final Platelets 08/25/2023 07:40:45 227 140-400 (K /uL) Final MPV 08/25/2023 07:40:45 10.1 6.6-11.1 ( fL) Final Performing Location [facility] [place] [address]
--- OUTSIDE RECORDS SUMMARY | 2023-10-08 03:56 | External Medical Summary ---
Author Name Unknown Address Unknown Organization K01:[facility] [address] [facility] [address] Laboratory Report Ordering Provider Test Date Status CHRIS MCCRAY 08/25/2023 07:40:45 Final Observation Date Value Abnormality Reference (Units ) Status TSH 08/25/2023 07:40:45 4.18 0.27-4.20 (uIU/mL) Final Performing Location [facility] [place] [address] [facility] [address]
--- OUTSIDE RECORDS SUMMARY | 2023-10-08 03:56 | External Medical Summary ---
Author Name Unknown Address Unknown Organization K09:[facility] [place] [address] [place] [address] Laboratory Report Ordering Provider Test Date Status CHRIS MCCRAY 08/25/2023 07:40:45 Final Observation Date Value Abnormality Reference (Units ) Status SYNC LEUKOCYTES IN BLOOD BY AUTOMATED COUNT 08/25/2023 07:40:45 6.94 4.00-10.80 (K/uL) Final Segs 08/25/2023 07:40:45 39.7 Below low normal 40.0-75.0 (%) Final Lymphs % 08/25/2023 07:40:45 39.6 18.0-42.0 (%) Final Monos 08/25/2023 07:40:45 20.6 Above high normal 1.0-11.0 (%) Final Eosinophils 08/25/2023 07:40:45 0.0 0.0-6.0 (%) Final Basos 08/25/2023 07:40:45 0.1 0.0-2.0 (%) Final Absolute Segs 08/25/2023 07:40:45 2.75 1.80-7.70 (K/uL) Final Lymphs, absolute 08/25/2023 07:40:45 2.75 1.00-4.80 (K/ul) Final Monos, Abs 08/25/2023 07:40:45 1.43 Above high normal 0.00-1.10 (K/uL) Final Eos, Abs 08/25/2023 07:40:45 0.00 0.00-0.70 (K/uL) Final Basos, Abs 08/25/2023 07:40:45 0.01 0.00-0.20 (K/uL) Final Performing Location [facility] [address] [place] [address]
--- OUTSIDE RECORDS SUMMARY | 2023-10-08 03:56 | External Medical Summary | Summary of Care ---
Author Name Unknown Organization [facility] Address [address] [place] [address] Phone [phone] Care Team Providers Care Filer And Sander Name Role Phone Carson Gallardo Primary Care Provider Reason for Visit * Reason Comments Chemotherapy Chemo/recheck Encounter Details Date Type Department Care Team (Late st Contact Info) Description 08/25/2023 8:00 AM EST Office Visit Hematology/Oncology [facility] [address] [facility] [place] [phone] Susie Epstein MD [address] [place] [address] Malignant melanoma of face (HCC)*; Encounter for [...] METFORMIN HCL ER (OSM) 500 MG PO [id number]:Met abolon Quantose IR Research Study*[id number] Take as directed by study staff 400 [...] meds) 100 Tablet 3 06/25/2023 Active Ipratropium [place] 0.03 % Nasal Solution (Atrovent) Administer 2 [...] Impaired fasting glucose 04/11/201404/2020 Metabolon Quantose [facility]*[id number] 01/20/2014 04/10/2014 Overview: METABOLON QUANTOSE IR STUDY. PROJECT: #[id number], ARCHITECT MANAGER: Tarun Nieto MD/ Dejuan Magdaleno MD. SUMMARY: The Use of a Novel Insulin Resistance Test as a Monitoring Indicator of Glycemic Control in Prediabetics and Diabetics treated with metformin combined with lifestyle intervention. CONTACTS: During normal business hours, contact Lily Burgos, RN, BSN at ; after hours Motor Vehicle Emissions Inspector via the [facility] stringing machine operator Impotence of organic origin 01/09/2014 08/31/2019 Epididymitis 01/09/2014 03/09/2017 Elevated prostate specific antigen (PSA) 01/09/2014 01/09/2014 Dry eye syndrome 12/31/2012 08/31/2019 Low testosterone 12/31/2012 08/31/2019 Family history of GI malignancy 07/09/2012 08/31/2019 Other specified hypothyroidism 08/19/2006 08/31/2019 ADVANCE DIRECTIVE INFORMATION 2006 08/31/2019 Overview: Information given to patient. DISC DIS [id number] - bulge L3-4, L4-5 02/21/2002 08/31/2019 FAM [...] Sign Reading Time Taken Comments Blood Pressure 145/79 08/25/2023 7:51 AM EST Pulse 79 08/25/2023 7:51 AM EST Temperature 36.4 C (97.5 F) 08/25/2023 7:51 AM ES T Respiratory Rate 16 08/25/2023 7:51 AM EST Oxygen Saturation 95% 08/25/2023 7:51 AM EST Inhaled Oxygen Concentration - - Weight 93 kg (205 lb) 08/25/2023 7:51 AM EST Height 177.8 cm (5' 10") 08/25/2023 7:51 AM EST Body Mass Index 29.41 08/25/2023 7:51 AM EST documented in this encounter Progress Notes * Susie Epstein MD - 08/25/2023 8:12 AM EST Outpatient Consult Note Data Source: Patient, [facility] record. Data Source: Patient, Epic record. 08/25/2023 8:12 AM Dylan Owen [id number] 73 year old Patient Encounter: HEMATOLOGY/ONCOLOGY [facility] Cancer Diagnosis: Invasive melanoma diagnosis of left [...] above the subcutis. The invasive component is [place] level V. One dermal mitoses per square [...] from the prior specimen from this anatomiclocation ([id number]) as well as information from the current specimen if possible. Certain parameters such as Breslow depth, Apolinar level, and ulceration are often difficult or impossible to accurately determine in excision specimens when a prior sampling/biopsy has been performed. The prior reported T category of pT4a remains unchanged from the original synoptic report for case [id number]. Junctional melanocytic hyperplasia (of sun damaged skin) [...] of Lymph Nodes Examined 1 Number of [place] Nodes Examined 1 PATHOLOGIC STAGE CLASSIFICATION (pTNM, AJCC 8th Edition) pT Category pT4a pN Category pN0 PET scan was done on 03/03/2023 which shows no evidence of metastatic disease and there was a calcified 3.6 x 2.7 cm left calvarial mass consistent with meningioma. Interval History: He is doing well without any new symptoms of complain. His sinus problem resolved after treated with the antibiotics. Overall he is tolerating Keytruda very well without any significant side effects toxicity. Denies any headache, dizziness, blurred vision, chest pain, palpitation abdominal pain or distention, nausea, vomiting, fever, night sweats, change in the bowel habits LABS/IMAGING: Results for orders placed or performed in visit on 08/25/23 COMPREHENSIVE METABOLIC PANEL Result Value Ref Range BUN 11 6 - 20 mg/dL Creatinine 0.8 0.6 - 1.2 mg/dL Estimated Glomerular Filtration Rate >90 >=60 mL/min Sodium 136 135 - 146 mmol/L Potassium 4.8 3.5 - 5.1 mmol/L Chloride 100 98 - 107 mmol/L CO2 24 22 - 32 mmol/L Anion Gap 12 7 - 15 mmol/L Glucose 142 (H) 70 - 120 mg/dL Albumin 4.3 3.8 - 5.0 g/dL AST 25 10 - 50 U/L Alkaline Phosphatase 127 35 - 130 U/L Bilirubin, Total 0.5 <=1.2 mg/dL Calcium 9.9 8.4 - 10.2 mg/dL Protein 7.8 6.0 - 8.3 g/dL ALT 15 10 - 50 U/L CBC Result Value Ref Range WBC 6.94 4.00 - 10.80 K/uL RBC 4.52 4.50 - 5.25 M/uL HGB 13.7 (L) 14.0 - 16.8 g/dL HCT 41.8 40.0 - 48.4 % MCV 92.5 82.0 - 99.5 fL MCH 30.3 27.0 - 34.0 pg MCHC 32.8 32.0 - 36.0 g/dL RDW 14.6 11.5 - 15.5 % PLT 227 140 - 400 K/uL MPV 10.1 6.6 - 11.1 fL DIFFERENTIAL, AUTOMATED Result Value Ref Range WBC 6.94 4.00 - 10.80 K/uL Neutrophils % 39.7 (L) 40.0 - 75.0 % Lymphocytes % 39.6 18.0 - 42.0 % Monocytes % 20.6 (H) 1.0 - 11.0 % Eosinophils % 0.0 0.0 - 6.0 % Basophils % 0.1 0.0 - 2.0 % Absolute Neutrophils 2.75 1.80 - 7.70 K/uL Absolute Lymphocytes 2.75 1.00 - 4.80 K/ul Absolute Monocytes 1.43 (H) 0.00 - 1.10 K/uL Absolute Eosinophils 0.00 0.00 - 0.70 K/uL Absolute Basophils 0.01 0.00 - 0.20 K/uL All his blood counts are in acceptable range. REVIEW OF SYSTEMS: General: No Fever, chills, [...] bleeding Genitourinary: Denies Hematuria or dysuria Musculoskeletal: No bone pain Skin: No skin rash or lesions noted [...] CENTRUM SILVER PO TABS Take by mouth. ADVIL 200 MG PO CAPS Take by mouth. METFORMIN HCL ER (OSM) [...] bedtime. Acetaminophen 500 MG Oral Tablet Take 1 Tablet by mouth every 6 hours as needed. Lidocaine-Prilocaine 2.5-2.5 % External Cream (Emla) APPLY TO SKIN OVER MEDIPORT & COVER 1HR PRIOR TO ACCESSING. 30 g 1 Lisinopril 2.5 MG Oral Tablet (Prinivil) Take 1 Tablet by mouth in the morning. 30 Tablet 11 Apixaban 5 MG Oral [...] or other meds) 100 Tablet 3 Ipratropium [place] 0.03 % Nasal Solution (Atrovent) Administer 2 Sprays into nostril in the morning and 2 Sprays before bedtime. 30 mL 3 Amoxicillin-Pot Clavulanate 875-125 MG Oral Tablet (Augmentin) Take 1 Tablet by mouth in the morning and 1 Tablet before bedtime. 14 Tablet 0 LORazepam 0.5 MG Oral Tablet (Ativan) Take 1 Tablet by mouth every 6 hours as needed for Anxiety. 30 Tablet 0 No current facility-administered medications for this visit. Social History Tobacco Use Smoking status: Former Current packs/day: 0.00 Average packs/day: 1.5 packs/day for 21.0 years (31.5 ttl pk-yrs) Types: Cigarettes Start date: 10/04/1969 Quit date: 10/04/1990 Years since quittin.9 Smokeless tobacco: Never Vaping Use Vaping Use: Never used Substance Use Topics Alcohol use: Yes Alcohol/week: 28.0 standard drinks of alcohol Types: 28 12 oz of beer per week Comment: 4 beer/day Drug use: No Review of patient's allergies indicates: Allergen Reactions Sulfamethoxazole-Trimethoprim Fever and Other (Please comment) PHYSICAL EXAMINATION: General Appearance: Healthy appearing patient in no acute distress BP 145/79 (BP Site: Left Arm, BP Position: Sitting, BP Cuff Size: Large) | Pulse 79 | Temp 36.4 C(97.5 F) (Tympanic) | Resp 16 | Ht 1.778 m (5' 10") | Wt 93 kg (205 lb) | SpO2 95% | BMI 29.41 kg/m | BSA 2.14 m Vitals reviewed. [...] is receiving adjuvant Keytruda. Clinically he is doing well without any new symptoms complain physical examination is unremarkable.All his blood counts are in acceptable range. Reviewed all the available blood test result with the patient. Discussed with him about the diagnosis and prognosis. PLAN: Continue current treatment. He will return to clinic for follow-up in 6 weeks The patient voiced understanding of all of [...] documented in this encounter Nursing Notes * Karen Gallardo LPN - 08/25/2023 7:52 AM EST Patient identifed by name and birthdate Do you have any concerns about pain management for today's visit? No Living Will or Advance Directive for Health Care as noted on the problem list. [email or web address] is a way you can talk to your provider on line through e-mail. Would you like to sign up? I can activate it for you? ALREADY ACTIVE Filed Vitals: 08/25/23 0751 BP: 145/79 Pulse: 79 Resp: 16 Temp: 36.4 C (97.5 F) TempSrc: Tympanic SpO2: 95% Weight: 93 kg (205 lb) Height: 1.778 m (5' 10") Patient was instructed to not get up on the exam table/exam chair until directed and assisted by their provider; patient is to remain seated in the chair/ wheelchair/ exam table/ exam chair for fall prevention and safety reasons. Patient is aware to have assistance to step down off exam table/exam chair with personnel. Patient voiced full comprehension of instructions. NOTE: patient experiencing fatigue, off balance/lightheadedness, and now new onset of body temperature too hot documented in this encounter Plan of Treatment Upcoming Encounters Date Type Department Care Team (Late st Contact Info) Description 09/14/2023 1:40 PM EDT Office Visit [facility] [address] [place] [address] Carson Gallardo, [address] [place] [address] Scheduled Procedures Name Priority Associated Diagnoses Date/Ti [...] this encounter Medical Devices Implanted Type Area Setup Technician Device Identifier Shelf Expiration Date Model / Serial / Lot Port Implant W/8f Poly Cath - [id number] Implanted:Qty : 1 on 04/22/2023 by Kaiden Armenta MD at [facility] Right: Chest CR BARD : PERIPHERAL VASCULAR [id number] 11/19/2024 [id number] / / [id number] documented as of this encounter Visit Diagnoses Diagnosis Malignant melanoma of face (HCC)- Primary Malignant melanoma of skin of other and unspecified parts of face Encounter for antineoplastic immunotherapy documented in this encounter Advance Directives Documents on File Type Date Recorded Patient 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 [place] [address] PCP - General Family Medicine 07/18/19 documented as of this encounter
--- OUTSIDE RECORDS SUMMARY | 2023-10-08 03:56 | External Medical Summary ---
Author Name Unknown Address Unknown Organization K09:[facility] [address] [place] [address] Laboratory Report Ordering Provider Test Date Status CHRIS MCCRAY 08/25/2023 07:40:45 Final Observation Date Value Abnormality Reference (Units ) Status BUN 08/25/2023 07:40:45 11 6-20 (mg/dL) Final Creatinine 08/25/2023 07:40:45 0.8 0.6-1.2 (mg/dL) Final Glomerular filtration rate/1.73 sq M.predicted [Volume Rate/Area] in Serum, Plasma or Blood by Creatinine-based formula (CKD-EPI) 08/25/2023 07:40:45 >90 >=60 (mL/min) Final eGFR is calculated based on the CKD-EPI 2020 equation SODIUM 08/25/2023 07:40:45 136 135-146 (m mol/L) Final Potassium 08/25/2023 07:40:45 4.8 3.5-5.1 (m mol/L) Final Cl 08/25/2023 07:40:45 100 98-107 (mm ol/L) Final CO2 08/25/2023 07:40:45 24 22-32 (mmo l/L) Final Anion gap 08/25/2023 07:40:45 12 7-15 (mmol /L) Final Glucose 08/25/2023 07:40:45 142 Above high normal 70 -120 (mg/dL) Final Albumin 08/25/2023 07:40:45 4.3 3.8-5.0 (g /dL) Final AST (Aspartate aminotransferase) 08/25/2023 07:40:45 25 10-50 (U/L) Fin al Alk Phos 08/25/2023 07:40:45 127 35-130 (U/ L) Final Bilirubin, Total 08/25/2023 07:40:45 0.5 <=1 .2 (mg/dL) Final Calcium 08/25/2023 07:40:45 9.9 8.4-10.2 ( mg/dL) Final Protein 08/25/2023 07:40:45 7.8 6.0-8.3 (g /dL) Final ALT (Alanine aminotransferase) 08/25/2023 07:40:45 15 10-50 (U/L) Rodrick crocker Performing Location [facility] [address] [place] [address]
--- OUTSIDE RECORDS SUMMARY | 2023-10-08 03:56 | External Medical Summary | Summary of Care ---
Author Name Unknown Organization [facility] Address [address] [place] [address] Phone [phone] Care Team Providers Care Zookeeper Name Role Phone Carson Gallardo Primary Care Provider Encounter Details Date Type Department Care Team (Late st Contact Info) Description 08/20/2023 Orders Only Hematology/Oncology, [facility] [address] [place] [address] Susie Epstein MD [address] [place] [address] Allergies Active Allergy Reactions Criticality Noted Date Comments Sulfamethoxazole-Trimethop rim Fever,Other (Please comment) 09/13/2019 documented as of this encounter (statuses as of 08/20/2023) Medications Medication Sig Dispensed Refills Start Date End Date Status FISH OIL 1000 MG PO CAPS Take by mouth. 0 0 2006 Active CENTRUM SILVER PO TABS Take by mouth. 0 Active ADVIL 200 MG PO CAPS Take by mouth. 0 Active METFORMIN HCL ER (OSM) 500 MG PO [id number]:Met carter Quantose IR Research Study*[id number] Take as directed by study staff 400 [...] meds) 100 Tablet 3 06/25/2023 Active Ipratropium [place] 0.03 % Nasal Solution (Atrovent) Administer 2 [...] as of this encounter (statuses as of 08/20/2023) Active Problems Problem Noted Date Diagnosed Date [...] as of this encounter (statuses as of 08/20/2023) Resolved Problems Problem Noted Date Diagnosed Date Resolved Date Family history of malignant neoplasm of prostate 03/11/2018 08/31/2019 Impaired fasting glucose 04/11/201404/2020 Metabolon Quantose IR Resear Study*[id number] 01/20/2014 04/10/2014 Overview: METABOLON QUANTOSE IR STUDY. PROJECT: #[id number], FURNITURE ARRANGER: Tarun Nieto MD/ Dejuan Magdaleno MD. SUMMARY: The Use of a Novel Insulin Resistance Test as a Monitoring Indicator of Glycemic Control in Prediabetics and Diabetics treated with metformin combined with lifestyle intervention. CONTACTS: During normal business hours, contact Lily Burgos RN, BSN at ; after hours Technical Marketing Engineer via the [facility] boiler control room operator Impotence of organic origin 01/09/2014 08/31/2019 Epididymitis 01/09/2014 03/09/2017 Elevated prostate specific antigen (PSA) 01/09/2014 01/09/2014 Dry eye syndrome 12/31/2012 08/31/2019 Low testosterone 12/31/2012 08/31/2019 Family history of GI malignancy 07/09/2012 08/31/2019 Other specified hypothyroidism 08/19/2006 08/31/2019 ADVANCE DIRECTIVE INFORMATION 2006 08/31/2019 Overview: Information given to patient. DISC DIS [id number] - bulge L3-4, L4-5 02/21/2002 08/31/2019 FAM HX-DIABETES MELLITUS - Dad 01/31/1999 08/31/2019 Mixed dyslipidemia 02/01/1998 9 Overview: Per Lipid Taxonomy. Idiopathic urticaria 020 documented as of this encounter (statuses as of 08/20/2023) Immunizations Name Administration Dates Next Due COVID-19 [...] Description 08/25/2023 7:30 AM EST Laboratory Laboratory [facility] [address] [place] [phone] Danielle, Lab Scenery [address] [facility] [place] [address] 08/25/2023 8:00 AM EST Office Visit Hematology/Oncology [facility] [place] [address] [place] [phone] Susie Epstein MD [address] [place] [address] 08/25/2023 8:30 AM EST [facility] [address] [place] [phone] Danielle, Chair 5 Hem Onc Scenery [address] [place] [address] 09/14/2023 1:40 PM EDT Office Visit Family [facility] [address] [place] [address] Carson Gallardo DO [address] [place] [address] Scheduled Procedures Name Priority Associated Diagnoses Date/Ti me COLONOSCOPY FLEXIBLE PROXIMAL DIAGNOSTIC Recall History of colon polyps ESOPHAGOGASTRODUODENOSCOPY ( EGD), FLEXIBLE, TRANSORAL, DIAGNOSTIC Recall Lipoma of other specified sites Health Maintenance Due Date Last Done Comments Diabetic Eye Exam 11/12/2023 11/11/2022, , 10/25/2021, Additional history exists Diabetic Foot Exam 12/19/2023 12/18/2022, 0 10/08/2021, 09/17/2020 HbA1c 02/02/2024 08/04/2023, 11/2 06/2022, 12/11/2022, Additional history exists Depression Screening 03/11/2024 [...] this encounter Medical Devices Implanted Type Area Watch Mechanic Device Identifier Shelf Expiration Date Model / Serial / Lot Port Implant W/8f Poly Cath - [id number] Implanted:Qty : 1 on 04/22/2023 by Kaiden Armenta MD at OR [facility] Right: Chest CR BARD : PERIPHERAL VASCULAR [id number] 11/19/2024 [id number] / / [id number] documented as of this encounter Advance Directives Documents on File Type Date Recorded Patient Pallet Assembler Expl anation Advance Directives and Living Will 09/07/2017 LIVING WILL Latest Code Status on File Code Status Date Activated Date Inactivated Comments Full Code 03/04/2023 7:10 AM 03/04/2023 3:47 PM Question Answer Comments Discussion of Advance Directives occurred with: Not Discussed due to patient's condition Care Teams Zookeeper Relationship Specialty Start Date End Date Carson Gallardo DO [address] [place] [address] PCP - General Family Medicine 07/18/19 documented as of this encounter
--- OUTSIDE RECORDS SUMMARY | 2023-10-08 03:56 | External Medical Summary | Summary of Care ---
Author Name Unknown Organization [facility] Address [address] [place] [address] Phone [phone] Care Team Providers Care Copra Processor Name Role Phone Carson Gallardo Primary Care Provider Reason for Visit * Reason Comments Outpatient Testing Encounter Details Date Type Department Care Team (Late st Contact Info) Description 08/25/2023 7:30 AM EST Laboratory Laboratory [facility] [address] [place] [phone] [place], Lab Scenery [address] [place] [address] Malignant melanoma of face (HCC); Encounter for [...] METFORMIN HCL ER (OSM) 500 MG PO [id number]:Met carter Quantose IR Research Study*[id number] Take as directed by study staff 400 [...] meds) 100 Tablet 3 06/25/2023 Active Ipratropium [place] 0.03 % Nasal Solution (Atrovent) Administer 2 [...] Impaired fasting glucose 04/11/201404/2020 Metabolon Quantose [facility] Study*[id number] 01/20/2014 04/10/2014 Overview: METABOLON QUANTOSE IR STUDY. PROJECT: #[id number], BLEACH SUPERVISOR: Tarun Nieto MD/ Dejuan Magdaleno MD. SUMMARY: The Use of a Novel Insulin Resistance Test as a Monitoring Indicator of Glycemic Control in Prediabetics and Diabetics treated with metformin combined with lifestyle intervention. CONTACTS: During normal business hours, contact Lily Burgos, RN, BSN at ; after hours Blower Insulator via the [facility] shredded filler cutter operator Impotence of organic origin 01/09/2014 08/31/2019 Epididymitis 01/09/2014 03/09/2017 Elevated prostate specific antigen (PSA) 01/09/2014 01/09/2014 Dry eye syndrome 12/31/2012 08/31/2019 Low testosterone 12/31/2012 08/31/2019 Family history of GI malignancy 07/09/2012 08/31/2019 Other specified hypothyroidism 08/19/2006 08/31/2019 ADVANCE DIRECTIVE INFORMATION 2006 08/31/2019 Overview: Information given to patient. DISC DIS [id number]-[id number] - bulge L3-4, L4-5 02/21/2002 08/31/2019 FAM [...] 08/25/2023 8:00 AM EST Office Visit Hematology/Oncology [facility] Danielle [place] [address] [place] [phone] Susie Epstein MD [address] [place] [address] Arrived 08/25/2023 8:30 AM EST Hem/Onc Treatment Hematology/Oncology Treatment, [place] [address] [place] [phone] Danielle, Chair 5 Hem Onc [facility] [address] [place] [address] Arrived 09/14/2023 1:40 PM EDT Office Visit [facility] [address] [place] [address] Carson Gallardo DO [address] [place] [address] Pending Results Name Type Priority Associated Diagnoses Date /Time COMPREHENSIVE METABOLIC PANEL Lab STAT Malignant melanoma of face (HCC) 08/25/2023 7:40 AM EST TSH WITH FREE T4 IF INDICATED Lab STAT Malignant melanoma of face (HCC) Encounter for long-term (current) use of medications 08/25/2023 7:40 AM EST Scheduled Procedures Name Priority Associated Diagnoses Date/Ti [...] this encounter Medical Devices Implanted Type Area Factory Helper Device Identifier Shelf Expiration Date Model / Serial / Lot Port Implant W/8f Poly Cath - [id number] Implanted:Qty : 1 on 04/22/2023 by Kaiden Armenta MD at OR [facility] Right: Chest CR BARD : PERIPHERAL VASCULAR [id number] 11/19/2024 [id number] / / [id number] documented as of this encounter Procedures Procedure Name Priority Date/Time Associated Diagnosis Comments DIFFERENTIAL, AUTOMATED STAT 08/25/2023 7:40 AM EST Malignant melanoma of face (HCC) CBC STAT 08/25/2023 7:40 AM EST Malignant melanoma of face (HCC) CBC STAT 08/25/2023 7:40 AM EST Malignant melanoma of face (HCC) documented in this encounter Results * (ABNORMAL) DIFFERENTIAL, AUTOMATED (08/25/2023 7:40 AM EST) WBC 6.94 4.00 - 10.80 K/uL 08/25/2023 7:54 AM EST [facility] [place] 56-02 Neutrophils % 39.7(L) 40.0 - 75.0 % 08/25/2023 7:54 AM EST [facility] [place] 56-02 Lymphocytes % 39.6 18.0 - 42.0 % 08/25/2023 7:54 AM EST [facility] 56-02 Monocytes % 20.6(H) 1.0 - 11.0 % 08/25/2023 7:54 AM EST [facility] 56-02 Eosinophils % 0.0 0.0 - 6.0 % 08/25/2023 7:54 AM EST [facility] 56-02 Basophils % 0.1 0.0 - 2.0 % 08/25/2023 7:54 AM EST [facility] [place] [facility] 56-02 Absolute Neutrophils 2.75 1.80 - 7.70 K/uL 08/25/2023 7:54 AM EST [facility] 56-02 Absolute Lymphocytes 2.75 1.00 - 4.80 K/ul 08/25/2023 7:54 AM EST [facility] [place] 56-02 Absolute Monocytes 1.43(H) 0.00 - 1.10 K/uL 08/25/2023 7:54 AM EST [facility] 56-02 Absolute Eosinophils 0.00 0.00 - 0.70 K/uL 08/25/2023 7:54 AM EST [facility] 56-02 Absolute Basophils 0.01 0.00 - 0.20 K/uL 08/25/2023 7:54 AM [facility] 56-02 Blood Venous blood specimen / Unknown Venipuncture / Unknown 08/25/2023 7:40 AM EST 08/25/2023 7:40 AM EST Susie Epstein MD LAB BLOOD [facility] [address] [place], [place] [phone] * (ABNORMAL) CBC (08/25/2023 7:40 AM EST) WBC 6.94 4.00 - 10.80 K/uL 08/25/2023 7:54 AM [facility] 56 RBC 4.52 4.50 - 5.25 M/uL 08/25/2023 7:54 AM [facility] 56 HGB 13.7(L) 14.0 - 16.8 g/dL 08/25/2023 7:54 AM [facility] 56 HCT 41.8 40.0 - 48.4 % 08/25/2023 7:54 AM [facility] 56- MCV 92.5 82.0 - 99.5 fL 08/25/2023 7:54 AM [facility] 56- MCH 30.3 27.0 - 34.0 pg 08/25/2023 7:54 AM [facility] 56- MCHC 32.8 32.0 - 36.0 g/dL 08/25/2023 7:54 AM [facility] 56- RDW 14.6 11.5 - 15.5 % 08/25/2023 7:54 AM [facility] 56-02 PLT 227 140 - 400 K/uL 08/25/2023 7:54 AM [facility] 56-02 MPV 10.1 6.6 - 11.1 fL 08/25/2023 7:54 AM [facility] 56-02 Blood Venous blood specimen / Unknown Venipuncture / Unknown 08/25/2023 7:40 AM EST 08/25/2023 7:40 AM EST Susie Epstein MD LAB BLOOD [facility] [place] [facility] [facility] [address] documented in this encounter Visit Diagnoses Diagnosis Malignant melanoma of face (HCC) Malignant melanoma of skin of other and unspecified parts of face Encounter for long-term (current) use of medications Encounter for long-term (current) use of other medications documented in this encounter Advance Directives Documents on File Type Date Recorded Patient Route Rider Supervisor Expl anation Advance Directives and Living Will 09/07/2017 LIVING WILL Latest Code Status on File Code Status Date Activated Date Inactivated Comments Full Code 03/04/2023 7:10 AM 03/04/2023 3:47 PM Question Answer Comments Discussion of Advance Directives occurred with: Not Discussed due to patient's condition Care Teams Copra Processor Relationship Specialty Start Date End Date Carson Gallardo DO [address] [place] [address] PCP - General Family Medicine 07/18/19 documented as of this encounter
--- OUTSIDE RECORDS SUMMARY | 2023-10-08 03:57 | External Medical Summary | Summary of Care ---
Author Name Unknown Organization [facility] Address [address] [place] [address] Phone [phone] Care Team Providers Care Job Analysis Manager Name Role Phone Carson Gallardo Primary Care Provider Reason for Visit * Reason Comments Outpatient Testing Encounter Details Date Type Department Care Team (Late st Contact Info) Description 08/04/2023 8:20 AM EST [facility] [place] [address] [place] [phone] [place], Lab Scenery [address] [place] [address] Malignant melanoma of face (HCC); Encounter for long-term (current) use of medications; Dyslipidemia; Diabetes mellitus with nephropathy (HCC); Hypothyroidism, unspecified type Allergies Active Allergy Reactions Criticality Noted Date Comments Sulfamethoxazole-Trimethop rim Fever,Other (Please comment) 09/13/2019 documented as of this encounter (statuses as of 08/04/2023) Medications Medication Sig Dispensed Refills Start Date End Date Status FISH OIL 1000 MG PO CAPS Take by mouth. 0 0 2006 Active CENTRUM SILVER PO TABS Take by mouth. 0 Active ADVIL 200 MG PO CAPS Take by mouth. 0 Active METFORMIN HCL ER (OSM) 500 MG PO [id number]:Met abolon Quantose IR Research Study*[id number] Take as directed by study staff 400 [...] needed for Anxiety. 30 Tab 0 02/13/2020 Active Metamucil [facility] Fiber 58.12 % Oral [...] meds) 100 Tablet 3 06/25/2023 Active Ipratropium [place] 0.03 % Nasal Solution (Atrovent) Administer 2 Sprays into nostril in the morning and 2 Sprays before bedtime. 30 mL 3 06/24/2023 Active Amoxicillin-Pot Clavulanate 875-125 MG Oral Tablet (Augmentin)Indicati ons:Malignant melanoma of face (HCC) Take 1 Tablet by mouth in the morning and 1 Tablet before bedtime. 14 Tablet 0 07/14/2023 Active documented as of this encounter (statuses as of 08/04/2023) Active Problems Problem Noted Date Diagnosed Date [...] as of this encounter (statuses as of 08/04/2023) Resolved Problems Problem Noted Date Diagnosed Date Resolved Date Family history of malignant neoplasm of prostate 03/11/2018 08/31/2019 Impaired fasting glucose 04/11/201404/2020 [facility]on [facility][id number] 01/20/2014 04/10/2014 Overview: METABOLON QUANTOSE IR STUDY. PROJECT: #[id number], AGRONOMY TEACHER: Tarun Nieto MD/ Dejuan Magdaleno MD. SUMMARY: The Use of a Novel Insulin Resistance Test as a Monitoring Indicator of Glycemic Control in Prediabetics and Diabetics treated with metformin combined with lifestyle intervention. CONTACTS: During normal business hours, contact Lily Burgos RN, BSN at ; after hours Feed Management Advisor via the [facility] low pressure boiler operator Impotence of organic origin 01/09/2014 08/31/2019 Epididymitis 01/09/2014 03/09/2017 Elevated prostate specific antigen (PSA) 01/09/2014 01/09/2014 Dry eye syndrome 12/31/2012 08/31/2019 Low testosterone 12/31/2012 08/31/2019 Family history of GI malignancy 07/09/2012 08/31/2019 Other specified hypothyroidism 08/19/2006 08/31/2019 ADVANCE DIRECTIVE INFORMATION 2006 08/31/2019 Overview: Information given to patient. DISC DIS HPD-LKR-LDEARL - bulge L3-4, L4-5 02/21/2002 08/31/2019 FAM HX-DIABETES MELLITUS - Dad 01/31/1999 08/31/2019 Mixed dyslipidemia 02/01/1998 9 Overview: Per Lipid Taxonomy. Idiopathic urticaria 020 documented as of this encounter (statuses as of 08/04/2023) Immunizations Name Administration Dates Next Due COVID-19 [...] Date Smoking Tobacco: Former Cigarettes 1.5 21 Q uit: 10/04/1990 Smokeless Tobacco: Never Alcohol Use Standard [...] Care Team (Late st Contact Info) Description 08/04/2023 9:30 AM EST Hem/Onc Treatment Hematology/Oncology Treatment, [place] [address] [facility] [place] [place] [address] Danielle, Chair 5 Hem Onc [address] [place] [address] Arrived 08/06/2023 8:20 AM EST Office Visit Family [facility] [address] [place] [address] Carson Gallardo DO [address] [place] [address] 08/25/2023 7:30 AM EST Laboratory Laboratory [facility] [place] [address] [place] [phone] [place], Lab Scenery [address] [facility] [place] [address] 08/25/2023 8:00 AM EST Office Visit Hematology/Oncology [facility] [place] [address] [place] [address] Susie Epstein MD [address] [place] [address] 08/25/2023 8:30 AM EST Hem/Onc Treatment Hematology/Oncology Treatment, [place] 200 [facility] [place] [address] Danielle, Chair 5 Hem Onc [facility] [address] [place] [address] Pending Results Name Type Priority Associated Diagnoses Date /Time COMPREHENSIVE METABOLIC PANEL Lab STAT Malignant melanoma of face (HCC) 08/04/2023 8:28 AM EST TSH WITH FREE T4 IF INDICATED Lab STAT Malignant melanoma of face (HCC) Encounter for long-term (current) use of medications 08/04/2023 8:28 AM EST HEMOGLOBIN A1C Lab Routine Diabetes mellitus with nephropathy (HCC) 08/04/2023 8:28 AM EST LIPID PANEL WITH DIRECT LDL IF TG IS HIGH Lab Routine Dyslipidemia 08/04/2023 8:28 AM EST MAGNESIUM Lab Routine Encounter for long-term (current) use of medications 08/04/2023 8:28 AM EST ALBUMIN / CREATININE RATIO, URINE Lab Routine Diabetes mellitus with nephropathy (HCC) 08/04/2023 8:33 AM EST Scheduled Procedures Name Priority Associated Diagnoses Date/Ti me COLONOSCOPY FLEXIBLE PROXIMAL DIAGNOSTIC Recall History of colon polyps ESOPHAGOGASTRODUODENOSCOPY ( EGD), FLEXIBLE, TRANSORAL, DIAGNOSTIC Recall Lipoma of other specified sites Health Maintenance Due Date Last Done Comments Hepatitis B (1 of 3 - Risk 3-dose series) 2011 HbA1c 11/10/2023 05/12/2023, 11/21, 05/28/2022, Additional history exists Diabetic Eye Exam 11/12/2023 11/11/2022, , 10/25/2021, Additional history exists Albumin/Creatinine Ratio 12/12/2023 023, 05/28/2022, 11/26/2021, Additional history exists Diabetic Foot Exam 12/19/2023 12/18/2022, 0 10/08/2021, 09/17/2020 Depression Screening 03/11/2024 03/11/2023 GFR 07/14/2024 07/14/2023, 01/0 07/2023, 06/02/2023, Additional history exists TSH 07/14/2024 07/14/2023, 01/0 07/2023, 06/02/2023, Additional history exists COLONOSCOPY-EVERY 5 YRS AGES 18-100 07/30/2027 07/30/2022, 07/30/2022, 03/08/2019, Additional history exists Lipid Panel 12/12/2027 12/11/2022, 120 12/2021, 11/26/2021, Additional history exists DTaP,Tdap,and Td Vaccines (2 [...] this encounter Medical Devices Implanted Type Area Rod Drawer Device Identifier Shelf Expiration Date Model / Serial / Lot Port Implant W/8f Poly Cath - [id number] Implanted:Qty : 1 on 04/22/2023 by Kaiden Armenta MD at OR [facility] Right: Chest CR BARD : PERIPHERAL VASCULAR [id number] 11/19/2024 [id number] / / [id number] documented as of this encounter Procedures Procedure Name Priority Date/Time Associated Diagnosis Comments DIFFERENTIAL, AUTOMATED STAT 08/04/2023 8:28 AM EST Encounter for long-term (current) use of medications CBC STAT 08/04/2023 8:28 AM EST Encounter for long-term (current) use of medications CBC STAT 08/04/2023 8:28 AM EST Encounter for long-term (current) use of medications documented in this encounter Results * (ABNORMAL) DIFFERENTIAL, AUTOMATED (08/04/2023 8:28 AM EST) WBC 7.19 4.00 - 10.80 K/uL 08/04/2023 8:34 AM EST LAB[facility]ATORY [place] 56-02 Neutrophils % 47.3 40.0 - 75.0 % 08/04/2023 8:34 AM [facility] 56- Lymphocytes % 36.6 18.0 - 42.0 % 08/04/2023 8:34 AM [facility] 56- Monocytes % 16.0(H) 1.0 - 11.0 % 08/04/2023 8:34 AM [facility] 56- Eosinophils % 0.0 0.0 - 6.0 % 08/04/2023 8:34 AM [facility] 56- Basophils % 0.1 0.0 - 2.0 % 08/04/2023 8:34 AM [facility] 56- Absolute Neutrophils 3.40 1.80 - 7.70 K/uL 08/04/2023 8:34 AM [facility] 56- Absolute Lymphocytes 2.63 1.00 - 4.80 K/ul 08/04/2023 8:34 AM [facility] 56- Absolute Monocytes 1.15(H) 0.00 - 1.10 K/uL 08/04/2023 8:34 AM [facility] 56- Absolute Eosinophils 0.00 0.00 - 0.70 K/uL 08/04/2023 8:34 AM [facility] 56- Absolute Basophils 0.01 0.00 - 0.20 K/uL 08/04/2023 8:34 AM [facility] 56 Blood Venous blood specimen / Unknown Venipuncture / Unknown 08/04/2023 8:28 AM EST 08/04/2023 8:30 AM EST Carson Gallardo DO LAB BLOOD ORDER [facility] [address]- [address] [place] [address] * (ABNORMAL) CBC (08/04/2023 8:28 AM EST) Pathologist [facility] WBC 7.19 4.00 - 10.80 K/uL 08/04/2023 8:34 AM [facility] 56- RBC 4.30 4.50 - 5.25 M/uL 08/04/2023 8:34 AM [facility] 56- HGB 13.2(L) 14.0 - 16.8 g/dL 08/04/2023 8:34 AM [facility] 56- HCT 39.8(L) 40.0 - 48.4 % 08/04/2023 8:34 AM [facility] 56- MCV 92.6 82.0 - 99.5 fL 08/04/2023 8:34 AM EST [facility] 56 MCH 30.7 27.0 - 34.0 pg 08/04/2023 8:34 AM [facility] 56 MCHC 33.2 32.0 - 36.0 g/dL 08/04/2023 8:34 AM [facility] 56- RDW 14.9 11.5 - 15.5 % 08/04/2023 8:34 AM [facility] 56- PLT 171 140 - 400 K/uL 08/04/2023 8:34 AM [facility] 56 MPV 9.6 6.6 - 11.1 fL 08/04/2023 8:34 AM [facility] 56 Blood Venous blood specimen / Unknown Venipuncture / Unknown 08/04/2023 8:28 AM EST 08/04/2023 8:30 AM EST Carson Gallardo DO LAB BLOOD ORDER [facility] [address]- [address] [place] [address] documented in this encounter Visit Diagnoses Diagnosis Malignant melanoma of face (HCC) Malignant melanoma of skin of other and unspecified parts of face Encounter for long-term (current) use of medications Encounter for long-term (current) use of other medications Dyslipidemia Other and unspecified hyperlipidemia 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, not stated as uncontrolled Hypothyroidism, unspecified type documented in this encounter Advance Directives Documents on File Type Date Recorded Patient Interceptor Operator Expl anation Advance Directives and Living Will 09/07/2017 LIVING WILL Latest Code Status on File Code Status Date Activated Date Inactivated Comments Full Code 03/04/2023 7:10 AM 03/04/2023 3:47 PM Question Answer Comments Discussion of Advance Directives occurred with: Not Discussed due to patient's condition Care Teams Job Analysis Manager Relationship Specialty Start Date End Date Carson Gallardo DO [address] [place] [address] PCP - General Family Medicine 07/18/19 documented as of this encounter
--- OUTSIDE RECORDS SUMMARY | 2023-10-08 03:57 | External Medical Summary | Summary of Care ---
Author Name Unknown Organization [facility] Address [address] [place] [address] Phone [phone] Care Team Providers Care Sales Performance Analyst Name Role Phone Carson Gallardo Primary Care Provider Reason for Visit * Reason Comments Outpatient Testing Encounter Details Date Type Department Care Team (Late st Contact Info) Description 08/04/2023 8:20 AM EST Laboratory [facility] [place] [address] [place] [phone] [place], Lab Scenery [address] [place] [address] Malignant melanoma of face (HCC); Encounter for [...] METFORMIN HCL ER (OSM) 500 MG PO [id number]:Met abolon Quantose IR Research Study*[id number] Take as directed by study staff 400 [...] meds) 100 Tablet 3 06/25/2023 Active Ipratropium [place] 0.03 % Nasal Solution (Atrovent) Administer 2 [...] Impaired fasting glucose 04/11/201404/2020 [facility]on [facility]*[id number] 01/20/2014 04/10/2014 Overview: METABOLON QUANTOSE IR STUDY. PROJECT: #[id number], WATCH ASSEMBLY INSPECTOR: Tarun Nieto MD/ Dejuan Magdaleno MD. SUMMARY: The Use of a Novel Insulin Resistance Test as a Monitoring Indicator of Glycemic Control in Prediabetics and Diabetics treated with metformin combined with lifestyle intervention. CONTACTS: During normal business hours, contact Lily Burgos RN, BSN at ; after hours Puncher And Fastener via the [facility] heavy forging machine operator Impotence of organic origin 01/09/2014 08/31/2019 Epididymitis 01/09/2014 03/09/2017 Elevated prostate specific antigen (PSA) 01/09/2014 01/09/2014 Dry eye syndrome 12/31/2012 08/31/2019 Low testosterone 12/31/2012 08/31/2019 Family history of GI malignancy 07/09/2012 08/31/2019 Other specified hypothyroidism 08/19/2006 08/31/2019 ADVANCE DIRECTIVE INFORMATION 2006 08/31/2019 Overview: Information given to patient. DISC DIS TYW-QZG-POQCRN - bulge L3-4, L4-5 02/21/2002 08/31/2019 FAM [...] 9:30 AM EST Hem/Onc Treatment Hematology/Oncology Treatment, [place] [address] [facility] [place] [place] [address] Danielle, Chair 5 Hem Onc [facility] [address] [place] [address] 08/06/2023 8:20 AM EST Office Visit Family [facility] [address] [place] [address] Carson Gallardo DO [address] [place] [address] 08/25/2023 7:30 AM EST Laboratory Laboratory [facility] [place] [address] [place] [phone] [place], Lab Scenery [address] [facility] [place] [address] 08/25/2023 8:00 AM EST Office Visit Hematology/Oncology [facility] [place] [address] [place] [address] Susie Epstein MD [address] [place] [address] 08/25/2023 8:30 AM EST Hem/Onc Treatment Hematology/Oncology Treatment, [place] 200 [facility] [place] [address] Dnaielle, Chair 5 Hem Onc [facility] [address] [place] [address] Pending Results Name Type Priority Associated Diagnoses Date /Time COMPREHENSIVE METABOLIC PANEL Lab STAT Malignant melanoma of face (HCC) 08/04/2023 8:28 AM EST TSH WITH FREE T4 IF INDICATED Lab STAT Malignant melanoma of face (HCC) Encounter for long-term (current) use of medications 08/04/2023 8:28 AM EST CBC WITH WBC DIFFERENTIAL Lab STAT Encounter for long-term (current) use of medications 08/04/2023 8:28 AM EST HEMOGLOBIN A1C Lab Routine Diabetes mellitus with nephropathy (HCC) 08/04/2023 8:28 AM EST LIPID PANEL WITH DIRECT LDL IF TG IS HIGH Lab Routine Dyslipidemia 08/04/2023 8:28 AM EST MAGNESIUM Lab Routine Encounter for long-term (current) use of medications 08/04/2023 8:28 AM EST CBC Lab STAT Encounter for long-term (current) use of medications 08/04/2023 8:28 AM EST DIFFERENTIAL, AUTOMATED Lab STAT Encounter for long-term (current) use of medications [...] Additional history exists Lipid Panel 12/12/2027 12/11/2022, 12/12/2021, 11/26/2021, Additional history exists DTaP,Tdap,and Td Vaccines [...] this encounter Medical Devices Implanted Type Area Roof Cement And Paint Maker Device Identifier Shelf Expiration Date Model / Serial / Lot Port Implant W/8f Poly Cath - [id number] Implanted:Qty : 1 on 04/22/2023 by Kaiden Armenta MD at OR [facility] Right: Chest CR BARD : PERIPHERAL VASCULAR [id number] 11/19/2024 [id number] / / [id number] documented as of this encounter Visit Diagnoses [...] on File Type Date Recorded Patient Sales Agent Insurance Expl anation Advance Directives and Living Will 09/07/2017 LIVING WILL Latest Code Status on File Code Status Date Activated Date Inactivated Comments Full Code 03/04/2023 7:10 AM 03/04/2023 3:47 PM Question Answer Comments Discussion of Advance Directives occurred with: Not Discussed due to patient's condition Care Teams Sales Performance Analyst Relationship Specialty Start Date End Date Carson Gallardo DO [address] [place] [address] PCP - General Family Medicine 07/18/19 documented as of this encounter
--- OUTSIDE RECORDS SUMMARY | 2023-10-08 03:57 | External Medical Summary ---
Author Name Unknown Address Unknown Organization K01:[facility] - [address] [place] [address] Laboratory Report Ordering Provider Test Date Status CHU ALEXANDER 08/04/2023 08:33:03 Final Normal: <30 mg/g creatinine< br/>High: 30-300 mg/g creatinine
Very High: >300 mg/g creatinine
Nephrotic: >2200 mg/g creatinine Observation Date Value Abnormality Reference (Units ) Status Albumin, Urine 08/04/2023 08:33:03 <1.20 (mg/dL) Final Creatinine, Urine 08/04/2023 08:33:03 84 (mg/dL) Final Albumin/Creatinine [Mass Ratio] in Urine 08/04/2023 08:33:03 <14 <30 (mg/g Creat) Final Performing Location LAB[facility] - [address] [place] [address]
--- OUTSIDE RECORDS SUMMARY | 2023-10-08 03:57 | External Medical Summary | Summary of Care ---
Author Name Unknown Organization [facility] Address [address] [place] [address] Phone [phone] Care Team Providers Care Rental Car Ferry Driver Name Role Phone Carson Gallardo Primary Care Provider Reason for Visit * Reason Comments Chemotherapy C6D1 Keytruda * Episode Based Medications (Routine) - Authorized Specialty Diagnoses / Procedures Referred By Contaykelin t Referred To Contact Diagnoses Malignant melanoma of face (HCC) Procedures [place] INJ PEMBROLIZUMAB Susie Epstein MD [address] [place] [address] Anc Hem/Onc [place] DEPT CLOSED - 05/05/23 200 [facility] [place] [address] Referral ID Status Reason Start Date Expiration Date V isits Requested Visits Authorized [id number] Authorized 03/17/2023 11/22/2023 99 99 Encounter Details Date Type Department Care Team (Latest Contact Info) Description 07/14/2023 9:30 AM EST Hem/Onc Treatment Hematology/Oncolog y Treatment, [place] [address] [place] [address] Danielle, Chair 8 Hem Onc [address] [place] [address] Malignant melanoma of face (HCC)*; Encounter for antineoplastic immunotherapy Allergies Active Allergy Reactions Criticality Noted Date Comments Sulfamethoxazole-Trimethop rim Fever,Other (Please comment) 09/13/2019 documented as of this encounter (statuses as of 08/11/2023) Medications Medication Sig Dispensed Refills Start Date End Date Status FISH OIL 1000 MG PO CAPS Take by mouth. 0 0 2006 Active CENTRUM SILVER PO TABS Take by mouth. 0 Active ADVIL 200 MG PO CAPS Take by mouth. 0 Active METFORMIN HCL ER (OSM) 500 MG PO [id number]:Met carter Quantose IR Research Study*[id number] Take as directed by study staff 400 [...] meds) 100 Tablet 3 06/25/2023 Active Ipratropium [place] 0.03 % Nasal Solution (Atrovent) Administer 2 Sprays into nostril in the morning and 2 Sprays before bedtime. 30 mL 3 06/24/2023 Active documented as of this encounter (statuses as of 08/11/2023) Active Problems Problem Noted Date Diagnosed Date [...] as of this encounter (statuses as of 08/11/2023) Resolved Problems Problem Noted Date Diagnosed Date Resolved Date Family history of malignant neoplasm of prostate 03/11/2018 08/31/2019 Impaired fasting glucose 04/11/201404/2020 Metabolon Quantose IR Resear Study*[id number] 01/20/2014 04/10/2014 Overview: METABOLON QUANTOSE IR STUDY. PROJECT: #[id number], COMMERCIAL CREDIT REVIEWER: Tarun Nieto MD/ Dejuan Magdaleno MD. SUMMARY: The Use of a Novel Insulin Resistance Test as a Monitoring Indicator of Glycemic Control in Prediabetics and Diabetics treated with metformin combined with lifestyle intervention. CONTACTS: During normal business hours, contact Lily Burgos RN, BSN at ; after hours Manager Group via the [facility] hospital frame table operator helper Impotence of organic origin 01/09/2014 08/31/2019 Epididymitis 01/09/2014 03/09/2017 Elevated prostate specific antigen (PSA) 01/09/2014 01/09/2014 Dry eye syndrome 12/31/2012 08/31/2019 Low testosterone 12/31/2012 08/31/2019 Family history of GI malignancy 07/09/2012 08/31/2019 Other specified hypothyroidism 08/19/2006 08/31/2019 ADVANCE DIRECTIVE INFORMATION 2006 08/31/2019 Overview: Information given to patient. DISC DIS [id number]-[id number] - bulge L3-4, L4-5 02/21/2002 08/31/2019 FAM HX-DIABETES MELLITUS - Dad 01/31/1999 08/31/2019 Mixed dyslipidemia 02/01/1998 9 Overview: Per Lipid Taxonomy. Idiopathic urticaria 020 documented as of this encounter (statuses as of 08/11/2023) Immunizations Name Administration Dates Next Due COVID-19 [...] as of this encounter Nursing Notes * Rajani Huynh RN - 07/14/2023 11:02 AM EST Functional status at today's visit: Fully active, [...] symptoms or adverse side effects during treatment. Goals: Patient will remain free from injury. Possible barriers to meeting goals: ambulation with IV pole Stability of the patient: Moderately stable - low risk of patient condition declining or worsening Summary regarding today's goals: Met: Pt remained free of injury during treatment Patient tolerated treatment well and was discharged in stable condition. No coverage needed today. * Rajani Huynh RN - 07/14/2023 10:12 AM EST Chair 4 Pt was seen by Dr Epstein today, see office notes. Will proceed with treatment as planned. VAD accessed without difficulty, good blood return noted, flushed with NSS and fluids infusing. Safety and Risk for Injury Patient will remain free from injury. Ensure appropriate safety devices are available. Provide and maintain safe environment. documented in this encounter Plan of Treatment Upcoming Encounters Date Type Department Care Team (Late st Contact Info) Description 08/25/2023 7:30 AM EST Laboratory Laboratory [facility] [address] [place] [phone] [place], Lab Scenery [address] [place], [place] [address] 08/25/2023 8:00 AM EST Office Visit Hematology/Oncology [facility] [place] [address] [place] [phone] Susei Epstein MD [address] [place] [address] 08/25/2023 8:30 AM EST [facility] [address] [place] [phone] Danielle, Chair 5 Hem Onc [address] [place] [address] 09/14/2023 1:40 PM EDT Office Visit Family Practice [facility] [address] [place] [address] Carson Gallardo, [address] [place] [address] Scheduled Procedures Name Priority Associated Diagnoses Date/Ti [...] encounter Medical Devices Implanted Type Area Senior Facilities Manager Device Identifier Shelf Expiration Date Model / Serial / Lot Port Implant W/8f Poly Cath - [id number] Implanted:Qty : 1 on 04/22/2023 by Kaiden Armenta MD at OR [facility] Right: Chest CR BARD : PERIPHERAL VASCULAR [id number] 11/19/2024 [id number] / / [id number] documented as of this encounter Visit Diagnoses [...] Lock, PRN Other, IV Flush, Starting on Thu07/14/23 at 0953, Until Thu07/14/23 at 1504, For 24 hours, Do not flush if lock, PICC, or central line not in place; IV infusing or unable to flush. Given 07/14/2023 10:26 AM EST 500 Units NSS infusion Intravenous, at 50 mL/hr, PRN, Starting on Thu07/14/23 at 1100, Until Thu07/14/23 at 1504, KVO Start Infusion 07/14/2023 9:50 AM EST 50 mL/hr Pembrolizumab (Keytruda) 200 mg in NSS 100 mL infusion 200 mg, IV Piggyback, ONCE, 1 dose, On Thu07/14/23 at 1130, Administer over 30 Minutes, Infuse through 0.2 micron filter. Start Infusion 07/14/2023 9:54 AM EST 200 mg 200 mL/hr sodium chloride 0.9 % flush central line 10 mL 10 mL, IV Push, PRN Other, IV Flush, Starting on Thu07/14/23 at 0953, Until Thu07/14/23 at 1504, For 24 hours, Do not flush if lock, PICC, or central line not in place; IV infusing or unable to flush. Given 07/14/2023 10:26 AM EST 10 mL documented in this encounter Advance Directives Documents on File Type Date Recorded Patient Single Wire Saw Operator Expl anation Advance Directives and Living Will 09/07/2017 LIVING WILL Latest Code Status on File Code Status Date Activated Date Inactivated Comments Full Code 03/04/2023 7:10 AM 03/04/2023 3:47 PM Question Answer Comments Discussion of Advance Directives occurred with: Not Discussed due to patient's condition Care Teams Rental Car Ferry Driver Relationship Specialty Start Date End Date Carson Gallardo DO [address] [place] [address] PCP - General Family Medicine 07/18/19 documented as of this encounter
--- OUTSIDE RECORDS SUMMARY | 2023-10-08 03:57 | External Medical Summary | Summary of Care ---
Author Name Unknown Organization [facility] Address [address] [place] [address] Phone [phone] Care Team Providers Care Surface Grinding Machine Hand Name Role Phone Carson Gallardo Primary Care Provider Reason for Visit * Reason Comments Chemotherapy C7/D1 - Keytruda * Episode Based Medications (Routine) - Authorized Specialty Diagnoses / Procedures Referred By Contyakelin t Referred To Contact Diagnoses Malignant melanoma of face (HCC) Procedures [place] INJ PEMBROLIZUMAB Susie Epstein MD [address] [place] [address] Anc Hem/Onc [facility] DEPT CLOSED - 05/05/23 [address] [place] [address] Referral ID Status Reason Start Date Expiration Date V isits Requested Visits Authorized [id number] Authorized 03/17/2023 11/22/2023 99 99 Encounter Details Date Type Department Care Team (Latest Contact Info) Description 08/04/2023 9:30 AM EST Hem/Onc Treatment Hematology/Oncolog y Treatment, [place] [address] [place] [address] Danielle, Chair 5 Hem Onc Scenery [address] [place] [address] Malignant melanoma of face (HCC)*; Encounter for [...] METFORMIN HCL ER (OSM) 500 MG PO [id number]: emma Quantose IR Research Study*[id number] Take as directed by study staff 400 [...] meds) 100 Tablet 3 06/25/2023 Active Ipratropium [place] 0.03 % Nasal Solution (Atrovent) Administer 2 [...] fasting glucose 04/11/201404/2020 Metabolon Quantose IR Resear Study*[id number] 01/20/2014 04/10/2014 Overview: METABOLON QUANTOSE IR STUDY. PROJECT: #[id number], THERMODYNAMIC PHYSICIST: Tarun Nieto MD/ Dejuan Magdaleno MD. SUMMARY: The Use of a Novel Insulin Resistance Test as a Monitoring Indicator of Glycemic Control in Prediabetics and Diabetics treated with metformin combined with lifestyle intervention. CONTACTS: During normal business hours, contact Lily Burgos RN, BSN at ; after hours Global Creative Chairman via the [facility] hospital picking machine operator Impotence of organic origin 01/09/2014 08/31/2019 Epididymitis 01/09/2014 03/09/2017 Elevated prostate specific antigen (PSA) 01/09/2014 01/09/2014 Dry eye syndrome 12/31/2012 08/31/2019 Low testosterone 12/31/2012 08/31/2019 Family history of GI malignancy 07/09/2012 08/31/2019 Other specified hypothyroidism 08/19/2006 08/31/2019 ADVANCE DIRECTIVE INFORMATION 2006 08/31/2019 Overview: Information given to patient. DISC DIS [id number] - bulge L3-4, L4-5 02/21/2002 08/31/2019 FAM [...] in this encounter Nursing Notes * Jessica Goodwin, RN - 08/04/2023 10:27 AM EST Goals: [...] Laboratory Laboratory [facility] [address] [facility] [place] [address] [place], Lab [facility] [address] [facility] [place] [address] 08/25/2023 8:00 AM EST Office Visit Hematology/Oncology [facility] [place] [address] [facility] [place] [address] Susie Epstein MD [address] [place] [address] 08/25/2023 8:30 AM EST Hem/Onc Treatment Hematology/Oncology Treatment, [place] [address] [place] [address] Danielle, Chair 5 Hem Onc Scenery [address] [facility] [place] [address] 09/14/2023 1:40 PM EDT Office Visit [facility] [address] [facility] [place] [address] Carson Gallardo, [address] [place] [address] Scheduled Procedures Name Priority Associated Diagnoses Date/Ti [...] 0 10/08/2021, 09/17/2020 Depression Screening 03/11/2024 03/11/2023 TSH 07/14/2024 07/14/2023, 07/2023, 06/02/2023, Additional history exists GFR 08/04/2024 08/04/2023, 06/23, 06/23/2023, Additional history exists COLONOSCOPY-EVERY 5 YRS AGES 18-100 07/30/2027 07/30/2022, 07/30/2022, 03/08/2019, Additional history exists Lipid Panel 12/12/2027 12/11/2022, 1212/2021, 11/26/2021, Additional history exists DTaP,Tdap,and Td Vaccines [...] this encounter Medical Devices Implanted Type Area Track Laying Supervisor Device Identifier Shelf Expiration Date Model / Serial / Lot Port Implant W/8f Poly Cath - [id number] Implanted:Qty : 1 on 04/22/2023 by Kaiden Armenta MD at [facility] Right: Chest CR BARD : PERIPHERAL VASCULAR [id number] 11/19/2024 [id number] / / [id number] documented as of this encounter Visit Diagnoses [...] ONCE PRN Other, Hypersensitivity Reaction, Starting on Thu08/04/23 at 0935, Until Thu08/05/23 at 0934, For 24 hours EPINEPHrine 1 MG/ML inj 0.3 mg 0.3 mg, Intramuscular, ONCE PRN Other, Hypersensitivity Reaction or Anaphylaxis, Starting on Thu08/04/23 at 0935, Until Thu08/05/23 at 0934, For 24 hours hEParin 100 UNIT/ML Lock Flush inj 500 Units 500 Units (5 mL), IV Lock, PRN Other, IV Flush, Starting on Thu08/04/23 at 0935, Until Thu08/05/23 at 0934, For 24 hours, Do not flush if lock, PICC, or central line not in place; IV infusing or unable to flush. Given 08/04/2023 10:20 AM EST 500 Units Hydrocortisone Sod Suc (PF) (Solu-Cortef) inj 100 mg 100 mg, IV Push, ONCE PRN Other, Hypersensitivity Reaction, Starting on Thu08/04/23 at 0935, Until Thu08/05/23 at 0934, For 24 hours NSS infusion Intravenous, at 50 mL/hr, PRN, Starting on Thu08/04/23 at 1045, Until Discontinued, KVO Start Infusion 08/04/2023 9:35 AM EST 50 mL/hr oxygen GAS Inhalation, OXYGEN, First dose on Thu08/04/23 at 1015, Until Discontinued, Device/Managed by: Low Flow Device, [...] Flush, Starting on Thu08/04/23 at 0935, Until Thu08/05/23 at 0934, For 24 hours, Do not flush if lock, PICC, or central line not in place; IV infusing or unable to flush. Given 08/04/2023 10:20 AM EST 10 mL Inactive Administered Medications - up to 3 most recent administrations Medication Order MAR Action Action Date Dose Rate Site Pembrolizumab (Keytruda) 200 mg in NSS 100 mL infusion 200 mg, IV Piggyback, ONCE, 1 dose, On Thu08/04/23 at 1115, Administer over 30 Minutes, Infuse through 0.2 micron filter. Start Infusion 08/04/2023 9:38 AM EST 200 mg 200 mL/hr documented in this encounter Advance Directives Documents on File Type Date Recorded Patient Multiple Cut Off Saw Operator Expl anation Advance Directives and Living Will 09/07/2017 LIVING WILL Latest Code Status on File Code Status Date Activated Date Inactivated Comments Full Code 03/04/2023 7:10 AM 03/04/2023 3:47 PM Question Answer Comments Discussion of Advance Directives occurred with: Not Discussed due to patient's condition Care Teams Surface Grinding Machine Hand Relationship Specialty Start Date End Date Carson Gallardo DO [address] [place] [address] PCP - General Family Medicine 07/18/19 documented as of this encounter
--- OUTSIDE RECORDS SUMMARY | 2023-10-08 03:57 | External Medical Summary | Summary of Care ---
Author Name Unknown Organization [facility] Address [address] [place] [address] Phone [phone] Care Team Providers Care Clinical Services Consultant Name Role Phone Carson Gallardo Primary Care Provider Reason for Visit * Reason Comments Chemotherapy C4/D1 - Keytruda * Episode Based Medications (Routine) - Authorized Specialty Diagnoses / Procedures Referred By Contyakelin t Referred To Contact Diagnoses Malignant melanoma of face (HCC) Procedures [place] INJ PEMBROLIZUMAB Susie Epstein MD [address] [place] [address] Anc Hem/Onc [facility] DEPT CLOSED - 05/05/23 [address] [place] [address] Referral ID Status Reason Start Date Expiration Date V isits Requested Visits Authorized [id number] Authorized 03/17/2023 11/22/2023 99 99 Encounter Details Date Type Department Care Team (Latest Contact Info) Description 06/02/2023 9:45 AM EST Hem/Onc Treatment Hematology/Oncolog y Treatment, [place] [address] [place] [address] Danielle, Chair 10 Hem Onc Scenery [address] [place] [address] Malignant melanoma of face (HCC)*; Encounter for antineoplastic immunotherapy Allergies Active Allergy Reactions Criticality Noted Date Comments Sulfamethoxazole-Trimethop rim Fever,Other (Please comment) 09/13/2019 documented as of this encounter (statuses as of 08/08/2023) Medications Medication Sig Dispensed Refills Start Date [...] 3 3 06/24/19 24 Discontinued(Ref ill) Ipratropium Winif[place] 0.03 % Nasal Solution (Atrovent) ADMINISTER 2 [...] as of this encounter (statuses as of 08/08/2023) Active Problems Problem Noted Date Diagnosed Date [...] as of this encounter (statuses as of 08/08/2023) Resolved Problems Problem Noted Date Diagnosed Date Resolved Date Family history of malignant neoplasm of prostate 03/11/2018 08/31/2019 Impaired fasting glucose 04/11/201404/2020 Metabolon Quantose IR Resear Study*[id number] 01/20/2014 04/10/2014 Overview: METABOLON QUANTOSE IR STUDY. PROJECT: #[id number], JAVA ENGINEER: Tarun Nieto MD/ Dejuan Magdaleno MD. SUMMARY: The Use of a Novel Insulin Resistance Test as a Monitoring Indicator of Glycemic Control in Prediabetics and Diabetics treated with metformin combined with lifestyle intervention. CONTACTS: During normal business hours, contact Lily Burgos RN, BSN at ; after hours Dobby Loom Fixer via the [facility] ethanol operator Impotence of organic origin 01/09/2014 08/31/2019 Epididymitis 01/09/2014 03/09/2017 Elevated prostate specific antigen (PSA) 01/09/2014 01/09/2014 Dry eye syndrome 12/31/2012 08/31/2019 Low testosterone 12/31/2012 08/31/2019 Family history of GI malignancy 07/09/2012 08/31/2019 Other specified hypothyroidism 08/19/2006 08/31/2019 ADVANCE DIRECTIVE INFORMATION 2006 08/31/2019 Overview: Information given to patient. DISC DIS [id number] - bulge L3-4, L4-5 02/21/2002 08/31/2019 FAM HX-DIABETES MELLITUS - Dad 01/31/1999 08/31/2019 Mixed dyslipidemia 02/01/1998 9 Overview: Per Lipid Taxonomy. Idiopathic urticaria 020 documented as of this encounter (statuses as of 08/08/2023) Immunizations Name Administration Dates Next Due COVID-19 [...] as of this encounter Nursing Notes * Jessica Goodwin RN - 06/02/2023 4:05 PM EST Chair 1. Patient saw Dr. Epstein today -- see OV note for detials. Patient is feeling well and has no acute issues or complaints. Chemo agents Keytruda ABN Labs WNL for tx Alt in [...] stable condition and denied any further needs. documented in this encounter Plan of Treatment Upcoming Encounters Date Type Department Care Team (Late st Contact Info) Description 08/25/2023 7:30 AM EST Laboratory Laboratory [facility] [address] [place] [phone] Danielle Lab Scenery [address] [facility] [place] [address] 08/25/2023 8:00 AM EST Office Visit Hematology/Oncology [facility] [place] [address] [place] [address] Susie Epstein MD [address] [place] [address] 08/25/2023 8:30 AM EST [facility] [address] [place] [address] Danielle, Chair 5 Hem Onc Scenery [address] [place] [address] 09/14/2023 1:40 PM EDT Office Visit Family Practice [facility] [address] [place] [address] Carson Gallardo DO [address] [place] [address] Scheduled Procedures Name Priority Associated Diagnoses Date/Ti [...] this encounter Medical Devices Implanted Type Area Buttermaker Continuous Churn Device Identifier Shelf Expiration Date Model / Serial / Lot Port Implant W/8f Poly Cath - [id number] Implanted:Qty : 1 on 04/22/2023 by Kaiden Armenta MD at [facility] Right: Chest CR BARD : PERIPHERAL VASCULAR [id number] 11/19/2024 [id number] / / [id number] documented as of this encounter Visit Diagnoses [...] Lock, PRN Other, IV Flush, Starting on Thu06/02/23 at 1012, Until Thu06/02/23 at 2008, For 24 hours, Do not flush if lock, PICC, or central line not in place; IV infusing or unable to flush. Given 06/02/2023 10:50 AM EST 500 Units NSS infusion Intravenous, at 50 mL/hr, PRN, Starting on Thu06/02/23 at 1115, Until Thu06/02/23 at 2008, KVO Start Infusion 06/02/2023 10:10 AM EST 50 mL/hr Pembrolizumab (Keytruda) 200 mg in NSS 100 mL infusion 200 mg, IV Piggyback, ONCE, 1 dose, On Thu06/02/23 at 1145, Administer over 30 Minutes, Infuse through 0.2 micron filter. Start Infusion 06/02/2023 10:12 AM EST 200 mg 200 mL/hr sodium chloride 0.9 % flush central line 10 mL 10 mL, IV Push, PRN Other, IV Flush, Starting on Thu06/02/23 at 1012, Until Thu06/02/23 at 2008, For 24 hours, Do not flush if lock, PICC, or central line not in place; IV infusing or unable to flush. Given 06/02/2023 10:49 AM EST 10 mL documented in this encounter Advance Directives Documents on File Type Date Recorded Patient Digester Hand Expl anation Advance Directives and Living Will 09/07/2017 LIVING WILL Latest Code Status on File Code Status Date Activated Date Inactivated Comments Full Code 03/04/2023 7:10 AM 03/04/2023 3:47 PM Question Answer Comments Discussion of Advance Directives occurred with: Not Discussed due to patient's condition Care Teams Clinical Services Consultant Relationship Specialty Start Date End Date Carson Gallardo DO [address] [place] [address] PCP - General Family Medicine 07/18/19 documented as of this encounter
--- OUTSIDE RECORDS SUMMARY | 2023-10-08 03:58 | External Medical Summary ---
Author Name Unknown Address Unknown Organization [id number]:LABORATORY [facility] - [address] [facility] [address] Laboratory Report Ordering Provider Test Date Status MCCRAYSADECHRIS 07/14/2023 08:38:42 Final Observation Date Value Abnormality Reference (Units ) Status TSH 07/14/2023 08:38:42 3.32 0.27-4.20 (uIU/mL) Final Performing Location LABORATORY [facility] - [address] [facility] [address]
--- OUTSIDE RECORDS SUMMARY | 2023-10-08 03:58 | External Medical Summary ---
Author Name Unknown Address Unknown Organization K09:[facility] [place] [address] [place] [address] Laboratory Report Ordering Provider Test Date Status CHU ALEXANDER 08/04/2023 08:28:55 Final Observation Date Value Abnormality Reference (Units ) Status SYNC LEUKOCYTES IN BLOOD BY AUTOMATED COUNT 08/04/2023 08:28:55 7.19 4.00-10.80 (K/uL) Final Segs 08/04/2023 08:28:55 47.3 40.0-75.0 (%) Final Lymphs % 08/04/2023 08:28:55 36.6 18.0-42.0 (%) Final Monos 08/04/2023 08:28:55 16.0 Above high normal 1.0-11.0 (%) Final Eosinophils 08/04/2023 08:28:55 0.0 0.0-6.0 (%) Final Basos 08/04/2023 08:28:55 0.1 0.0-2.0 (%) Final Absolute Segs 08/04/2023 08:28:55 3.40 1.80-7.70 (K/uL) Final Lymphs, absolute 08/04/2023 08:28:55 2.63 1.00-4.80 (K/ul) Final Monos, Abs 08/04/2023 08:28:55 1.15 Above high normal 0.00-1.10 (K/uL) Final Eos, Abs 08/04/2023 08:28:55 0.00 0.00-0.70 (K/uL) Final Basos, Abs 08/04/2023 08:28:55 0.01 0.00-0.20 (K/uL) Final Performing Location [facility] [place] [address] [place] [address]
--- OUTSIDE RECORDS SUMMARY | 2023-10-08 03:58 | External Medical Summary ---
Author Name Unknown Address Unknown Organization K09:[facility] [address] [place] [address] Laboratory Report Ordering Provider Test Date Status CHRIS MCCRAY 07/14/2023 08:38:42 Final Observation Date Value Abnormality Reference (Units ) Status BUN 07/14/2023 08:38:42 9 6-20 (mg/dL) Final Creatinine 07/14/2023 08:38:42 0.9 0.6-1.2 (mg/dL) Final Glomerular filtration rate/1.73 sq M.predicted [Volume Rate/Area] in Serum, Plasma or Blood by Creatinine-based formula (CKD-EPI) 07/14/2023 08:38:42 90 >=60 (mL/min) Final eGFR is calculated based on the CKD-EPI 2020 equation SODIUM 07/14/2023 08:38:42 132 Below low normal 135 -146 (mmol/L) Final Potassium 07/14/2023 08:38:42 4.3 3.5-5.1 (m mol/L) Final Cl 07/14/2023 08:38:42 97 Below low normal 98- 107 (mmol/L) Final CO2 07/14/2023 08:38:42 25 22-32 (mmo l/L) Final Anion gap 07/14/2023 08:38:42 10 7-15 (mmol /L) Final Glucose 07/14/2023 08:38:42 155 Above high normal 70 -120 (mg/dL) Final Albumin 07/14/2023 08:38:42 4.3 3.8-5.0 (g /dL) Final AST (Aspartate aminotransferase) 07/14/2023 08:38:42 20 10-50 (U/L) Fin al Alk Phos 07/14/2023 08:38:42 121 35-130 (U/ L) Final Bilirubin, Total 07/14/2023 08:38:42 1.1 <=1 .2 (mg/dL) Final Calcium 07/14/2023 08:38:42 10.0 8.4-10.2 ( mg/dL) Final Protein 07/14/2023 08:38:42 7.7 6.0-8.3 (g /dL) Final ALT (Alanine aminotransferase) 07/14/2023 08:38:42 13 10-50 (U/L) Rodrick crocker Performing Location [facility] [place] [address] [place] [address]
--- OUTSIDE RECORDS SUMMARY | 2023-10-08 03:58 | External Medical Summary ---
Author Name Unknown Address Unknown Organization K01:LABORAT[facility] - [address] [facility] [address] Laboratory Report Ordering Provider Test Date Status CHU ALEXANDER 08/04/2023 08:28:55 Final Observation Date Value Abnormality Reference (Units ) Status HbA1C 08/04/2023 08:28:55 6.1 Above high normal 4. 0-5.6 (%) Final The use of HbA1c to monitor glycemic status is based on normal hemoglobin and HbA composition. This test should not be used in patients with abnormal hemoglobin that affects the half life of the red blood cell or the in vivo glycation rates. Glucose, estimated average 08/04/2023 08:28:55 128 Above high normal <126 (mg/dL) Rodrick crocker Performing Location LAB[facility] - [address] [facility] [address]
--- OUTSIDE RECORDS SUMMARY | 2023-10-08 03:58 | External Medical Summary ---
Author Name Unknown Address Unknown Organization K09:[facility] [place] [address] [place] [address] Laboratory Report Ordering Provider Test Date Status CHRIS MCCRAY 08/04/2023 08:28:55 Final Observation Date Value Abnormality Reference (Units ) Status BUN 08/04/2023 08:28:55 10 6-20 (mg/dL) Final Creatinine 08/04/2023 08:28:55 0.9 0.6-1.2 (mg/dL) Final Glomerular filtration rate/1.73 sq M.predicted [Volume Rate/Area] in Serum, Plasma or Blood by Creatinine-based formula (CKD-EPI) 08/04/2023 08:28:55 >90 >=60 (mL/min) Final eGFR is calculated based on the CKD-EPI 2020 equation SODIUM 08/04/2023 08:28:55 135 135-146 (m mol/L) Final Potassium 08/04/2023 08:28:55 4.5 3.5-5.1 (m mol/L) Final Cl 08/04/2023 08:28:55 99 98-107 (mm ol/L) Final CO2 08/04/2023 08:28:55 25 22-32 (mmo l/L) Final Anion gap 08/04/2023 08:28:55 11 7-15 (mmol /L) Final Glucose 08/04/2023 08:28:55 138 Above high normal 70 -120 (mg/dL) Final Albumin 08/04/2023 08:28:55 4.2 3.8-5.0 (g /dL) Final AST (Aspartate aminotransferase) 08/04/2023 08:28:55 26 10-50 (U/L) Fin al Alk Phos 08/04/2023 08:28:55 128 35-130 (U/ L) Final Bilirubin, Total 08/04/2023 08:28:55 0.8 <=1 .2 (mg/dL) Final Calcium 08/04/2023 08:28:55 9.6 8.4-10.2 ( mg/dL) Final Protein 08/04/2023 08:28:55 7.6 6.0-8.3 (g /dL) Final ALT (Alanine aminotransferase) 08/04/2023 08:28:55 15 10-50 (U/L) Rodrick crocker Performing Location [facility] [place] [address] [place] [address]
--- OUTSIDE RECORDS SUMMARY | 2023-10-08 03:58 | External Medical Summary | Summary of Care ---
Author Name Unknown Organization [facility] Address [address] [place] [address] Phone [phone] Care Team Providers Care Code Enforcement Supervisor Name Role Phone Carson Gallardo Primary Care Provider Reason for Visit * Reason Comments Outpatient Testing Encounter Details Date Type Department Care Team (Late st Contact Info) Description 07/14/2023 8:30 AM EST Laboratory Laboratory [facility] [address] [place] [phone] Issue, Lab Scenery [address] [place] [address] Malignant melanoma of face (HCC); Encounter for long-term (current) use of medications Allergies Active Allergy Reactions Criticality Noted Date Comments Sulfamethoxazole-Trimethop rim Fever,Other (Please comment) 09/13/2019 documented as of this encounter (statuses as of 07/14/2023) Medications Medication Sig Dispensed Refills Start Date End Date Status FISH OIL 1000 MG PO CAPS Take by mouth. 0 0 2006 Active CENTRUM SILVER PO TABS Take by mouth. 0 Active ADVIL 200 MG PO CAPS Take by mouth. 0 Active METFORMIN HCL ER (OSM) 500 MG PO [id number]:Met carter Quantose IR Research Study*[id number] Take as directed by study staff 400 [...] meds) 100 Tablet 3 06/25/2023 Active Ipratropium [place] 0.03 % Nasal Solution (Atrovent) Administer 2 Sprays into nostril in the morning and 2 Sprays before bedtime. 30 mL 3 06/24/2023 Active documented as of this encounter (statuses as of 07/14/2023) Active Problems Problem Noted Date Diagnosed Date [...] as of this encounter (statuses as of 07/14/2023) Resolved Problems Problem Noted Date Diagnosed Date Resolved Date Family history of malignant neoplasm of prostate 03/11/2018 08/31/2019 Impaired fasting glucose 04/11/201404/2020 Metabolon Quantose IR [facility] Study*[id number] 01/20/2014 04/10/2014 Overview: METABOLON QUANTOSE IR STUDY. PROJECT: #[id number], AVIATION ELECTRONIC WARFARE OPERATOR: Tarun Nieto MD/ Dejuan Magdaleno MD. SUMMARY: The Use of a Novel Insulin Resistance Test as a Monitoring Indicator of Glycemic Control in Prediabetics and Diabetics treated with metformin combined with lifestyle intervention. CONTACTS: During normal business hours, contact Lily Burgos RN, BSN at ; after hours Karate Teacher via the [facility] hospital tumbler operator Impotence of organic origin 01/09/2014 08/31/2019 Epididymitis 01/09/2014 03/09/2017 Elevated prostate specific antigen (PSA) 01/09/2014 01/09/2014 Dry eye syndrome 12/31/2012 08/31/2019 Low testosterone 12/31/2012 08/31/2019 Family history of GI malignancy 07/09/2012 08/31/2019 Other specified hypothyroidism 08/19/2006 08/31/2019 ADVANCE DIRECTIVE INFORMATION 2006 08/31/2019 Overview: Information given to patient. DISC DIS [id number] - bulge L3-4, L4-5 02/21/2002 08/31/2019 FAM HX-DIABETES MELLITUS - Dad 01/31/1999 08/31/2019 Mixed dyslipidemia 02/01/1998 9 Overview: Per Lipid Taxonomy. Idiopathic urticaria 020 documented as of this encounter (statuses as of 07/14/2023) Immunizations Name Administration Dates Next Due COVID-19 [...] Care Team (Late st Contact Info) Description 07/14/2023 9:00 AM EST Office Visit Hematology/Oncology [place] [address] [place] [address] Susie Epstein MD [address] [place] [address] Arrived 07/14/2023 9:30 AM EST Hem/Onc Treatment Hematology/Oncology Treatment, [place] [address] [place] [address] Danielle, Chair 8 Hem Onc Scenery [address] [place] [address] Arrived 08/06/2023 8:20 AM EST Office Visit Family [facility] [address] [place] [address] Carson Gallardo DO [address] [place] [address] Pending Results Name Type Priority Associated Diagnoses Date /Time COMPREHENSIVE METABOLIC PANEL Lab STAT Malignant melanoma of face (HCC) 07/14/2023 8:38 AM EST TSH WITH FREE T4 IF INDICATED Lab STAT Malignant melanoma of face (HCC) Encounter for long-term (current) use of medications 07/14/2023 8:38 AM EST Scheduled Procedures Name Priority Associated [...] 10/08/2021, 09/17/2020 Depression Screening 03/11/2024 03/11/2023 GFR 06/23/2024 06/23/2023, 05/22, 05/12/2023, Additional history exists TSH 06/23/2024 06/23/2023, 05/22, 05/12/2023, Additional history exists COLONOSCOPY-EVERY 5 YRS AGES [...] this encounter Medical Devices Implanted Type Area Resume Writer Device Identifier Shelf Expiration Date Model / Serial / Lot Port Implant W/8f Poly Cath - [id number] Implanted:Qty : 1 on 04/22/2023 by Kaiden Armenta MD at OR [facility] Right: Chest CR BARD : PERIPHERAL VASCULAR [id number] 11/19/2024 [id number] / / [id number] documented as of this encounter Procedures Procedure Name Priority Date/Time Associated Diagnosis Comments DIFFERENTIAL, AUTOMATED STAT 07/14/2023 8:38 AM EST Malignant melanoma of face (HCC) CBC STAT 07/14/2023 8:38 AM EST Malignant melanoma of face (HCC) CBC STAT 07/14/2023 8:38 AM EST Malignant melanoma of face (HCC) documented in this encounter Results * (ABNORMAL) DIFFERENTIAL, AUTOMATED (07/14/2023 8:38 AM EST) WBC 8.01 4.00 - 10.80 K/uL 07/14/2023 8:45 AM EST [facility] 56-02 Neutrophils % 50.3 40.0 - 75.0 % 07/14/2023 8:45 AM EST [facility] 56-02 Lymphocytes % 33.7 18.0 - 42.0 % 07/14/2023 8:45 AM EST [facility] [place] 56-02 Monocytes % 15.9(H) 1.0 - 11.0 % 07/14/2023 8:45 AM EST [facility] 56-02 Eosinophils % 0.0 0.0 - 6.0 % 07/14/2023 8:45 AM EST [facility] 56-02 Basophils % 0.1 0.0 - 2.0 % 07/14/2023 8:45 AM EST [facility] 56-02 Absolute Neutrophils 4.03 1.80 - 7.70 K/uL 07/14/2023 8:45 AM EST [facility] 56-02 Absolute Lymphocytes 2.70 1.00 - 4.80 K/ul 07/14/2023 8:45 AM EST [facility] 56-02 Absolute Monocytes 1.27(H) 0.00 - 1.10 K/uL 07/14/2023 8:45 AM EST [facility] 56-02 Absolute Eosinophils 0.00 0.00 - 0.70 K/uL 07/14/2023 8:45 AM EST [facility] 56-02 Absolute Basophils 0.01 0.00 - 0.20 K/uL 07/14/2023 8:45 AM EST [facility] [place] 56-02 Blood Venous blood specimen / Unknown Venipuncture / Unknown 07/14/2023 8:38 AM EST 07/14/2023 8:38 AM EST Susie Epstein MD LAB BLOOD [facility] [address] [place] [address] * (ABNORMAL) CBC (07/14/2023 8:38 AM EST) WBC 8.01 4.00 - 10.80 K/uL 07/14/2023 8:45 AM EST [facility] 56- RBC 4.32 4.50 - 5.25 M/uL 07/14/2023 8:45 AM EST [facility] 56 HGB 13.3(L) 14.0 - 16.8 g/dL 07/14/2023 8:45 AM EST [facility] 56- HCT 39.3(L) 40.0 - 48.4 % 07/14/2023 8:45 AM [facility] 56- MCV 91.0 82.0 - 99.5 fL 07/14/2023 8:45 AM EST [facility] 56- MCH 30.8 27.0 - 34.0 pg 07/14/2023 8:45 AM [facility] 56 MCHC 33.8 32.0 - 36.0 g/dL 07/14/2023 8:45 AM [facility] 56- RDW 13.7 11.5 - 15.5 % 07/14/2023 8:45 AM [facility] 56- PLT 207 140 - 400 K/uL 07/14/2023 8:45 AM [facility] 56- MPV 9.7 6.6 - 11.1 fL 07/14/2023 8:45 AM [facility] 56- Blood Venous blood specimen / Unknown Venipuncture / Unknown 07/14/2023 8:38 AM EST 07/14/2023 8:38 AM EST Susie Epstein MD LAB BLOOD [facility] [address] [place] [address] documented in this encounter Visit Diagnoses Diagnosis Malignant melanoma of face (HCC) Malignant melanoma of skin of other and unspecified parts of face Encounter for long-term (current) use of medications Encounter for long-term (current) use of other medications documented in this encounter Advance Directives Documents on File Type Date Recorded Patient Psychic Reader Expl anation Advance Directives and Living Will 09/07/2017 LIVING WILL Latest Code Status on File Code Status Date Activated Date Inactivated Comments Full Code 03/04/2023 7:10 AM 03/04/2023 3:47 PM Question Answer Comments Discussion of Advance Directives occurred with: Not Discussed due to patient's condition Care Teams Code Enforcement Supervisor Relationship Specialty Start Date End Date Carson Gallardo DO [address] [place] [address] PCP - General Family Medicine 07/18/19 documented as of this encounter
--- OUTSIDE RECORDS SUMMARY | 2023-10-08 03:58 | External Medical Summary ---
Author Name Unknown Address Unknown Organization K09:[facility] [place] [address] Laboratory Report Ordering Provider Test Date Status CHRIS MCCRAY 07/14/2023 08:38:42 Final Observation Date Value Abnormality Reference (Units ) Status SYNC LEUKOCYTES IN BLOOD BY AUTOMATED COUNT 07/14/2023 08:38:42 8.01 4.00-10.80 (K/uL) Final Segs 07/14/2023 08:38:42 50.3 40.0-75.0 (%) Final Lymphs % 07/14/2023 08:38:42 33.7 18.0-42.0 (%) Final Monos 07/14/2023 08:38:42 15.9 Above high normal 1.0-11.0 (%) Final Eosinophils 07/14/2023 08:38:42 0.0 0.0-6.0 (%) Final Basos 07/14/2023 08:38:42 0.1 0.0-2.0 (%) Final Absolute Segs 07/14/2023 08:38:42 4.03 1.80-7.70 (K/uL) Final Lymphs, absolute 07/14/2023 08:38:42 2.70 1.00-4.80 (K/ul) Final Monos, Abs 07/14/2023 08:38:42 1.27 Above high normal 0.00-1.10 (K/uL) Final Eos, Abs 07/14/2023 08:38:42 0.00 0.00-0.70 (K/uL) Final Basos, Abs 07/14/2023 08:38:42 0.01 0.00-0.20 (K/uL) Final Performing Location [facility] [place] [address]
--- OUTSIDE RECORDS SUMMARY | 2023-10-08 03:58 | External Medical Summary ---
Author Name Unknown Address Unknown Organization K09:[facility] [place] [address] Laboratory Report Ordering Provider Test Date Status CHU ALEXANDER 08/04/2023 08:28:55 Final Observation Date Value Abnormality Reference (Units ) Status WBC, Total 08/04/2023 08:28:55 7.19 4.00-10.8 0 (K/uL) Final RBC 08/04/2023 08:28:55 4.30 4.50-5.25 (M/uL) Final Hemoglobin 08/04/2023 08:28:55 13.2 Below low normal 14 .0-16.8 (g/dL) Final HCT 08/04/2023 08:28:55 39.8 Below low normal 40. 0-48.4 (%) Final MCV 08/04/2023 08:28:55 92.6 82.0-99.5 (fL) Final MCH 08/04/2023 08:28:55 30.7 27.0-34.0 (pg) Final MCHC 08/04/2023 08:28:55 33.2 32.0-36.0 (g/dL) Final RDW 08/04/2023 08:28:55 14.9 11.5-15.5 (%) Final Platelets 08/04/2023 08:28:55 171 140-400 (K /uL) Final MPV 08/04/2023 08:28:55 9.6 6.6-11.1 ( fL) Final Performing Location [facility] [place] [address]
--- OUTSIDE RECORDS SUMMARY | 2023-10-08 03:58 | External Medical Summary ---
Author Name Unknown Address Unknown Organization K09:[facility] [place] [address] Laboratory Report Ordering Provider Test Date Status CHU ALEXANDER 08/04/2023 08:28:55 Final Observation Date Value Abnormality Reference (Units ) Status Magnesium 08/04/2023 08:28:55 1.7 1.5-2.6 (m g/dL) Final Performing Location [facility] [place] [address]
--- OUTSIDE RECORDS SUMMARY | 2023-10-08 03:58 | External Medical Summary | Summary of Care ---
Author Name Unknown Organization [facility] Address [address] [place] [address] Phone [phone] Care Team Providers Care Fleet Administrative Assistant Name Role Phone Carson Gallardo Primary Care Provider Reason for Visit * Reason Onset Date Comments Insurance 07/15/2023 65 Fwd - Tour/re quirements Encounter Details Date Type Department Care Team (Late st Contact Info) Description 07/15/2023 Telephone Family Practice [facility] [address] [place] [phone] Jocelyn Bro [address] [place] [address] Insurance (65 Fwd - Tour/requirements/) Allergies Active Allergy Reactions Criticality Noted Date Comments Sulfamethoxazole-Trimethop rim Fever,Other (Please comment) 09/13/2019 documented as of this encounter (statuses as of 07/15/2023) Medications Medication Sig Dispensed Refills Start Date End Date Status FISH OIL 1000 MG PO CAPS Take by mouth. 0 0 2006 Active CENTRUM SILVER PO TABS Take by mouth. 0 Active ADVIL 200 MG PO CAPS Take by mouth. 0 Active METFORMIN HCL ER (OSM) 500 MG PO [id number]:Met emma Quantose IR Research Study*[id number] Take as directed by study staff 400 [...] meds) 100 Tablet 3 06/25/2023 Active Ipratropium [place] 0.03 % Nasal Solution (Atrovent) Administer 2 Sprays into nostril in the morning and 2 Sprays before bedtime. 30 mL 3 06/24/2023 Active Amoxicillin-Pot Clavulanate 875-125 MG Oral Tablet (Augmentin)Indicati ons:Malignant melanoma of face (HCC) Take 1 Tablet by mouth in the morning and 1 Tablet before bedtime. 14 Tablet 0 07/14/2023 Active documented as of this encounter (statuses as of 07/15/2023) Active Problems Problem Noted Date Diagnosed Date [...] as of this encounter (statuses as of 07/15/2023) Resolved Problems Problem Noted Date Diagnosed Date Resolved Date Family history of malignant neoplasm of prostate 03/11/2018 08/31/2019 Impaired fasting glucose 04/11/201404/2020 [facility]on [facility]ose [facility]*[id number] 01/20/2014 04/10/2014 Overview: METABOLON QUANTOSE IR STUDY. PROJECT: #[id number], BOTTOM TURNING LATHE TURNER: Tarun Nieto MD/ Dejuan Magdaleno MD. SUMMARY: The Use of a Novel Insulin Resistance Test as a Monitoring Indicator of Glycemic Control in Prediabetics and Diabetics treated with metformin combined with lifestyle intervention. CONTACTS: During normal business hours, contact Lily Burgos, RN, BSN at ; after hours Automotive Salesperson via the [facility] hospital air table operator Impotence of organic origin 01/09/2014 08/31/2019 Epididymitis 01/09/2014 03/09/2017 Elevated prostate specific antigen (PSA) 01/09/2014 01/09/2014 Dry eye syndrome 12/31/2012 08/31/2019 Low testosterone 12/31/2012 08/31/2019 Family history of GI malignancy 07/09/2012 08/31/2019 Other specified hypothyroidism 08/19/2006 08/31/2019 ADVANCE DIRECTIVE INFORMATION 2006 08/31/2019 Overview: Information given to patient. DISC DIS [id number] - bulge L3-4, L4-5 02/21/2002 08/31/2019 FAM HX-DIABETES MELLITUS - Dad 01/31/1999 08/31/2019 Mixed dyslipidemia 02/01/1998 9 Overview: Per Lipid Taxonomy. Idiopathic urticaria 020 documented as of this encounter (statuses as of 07/15/2023) Immunizations Name Administration Dates Next Due COVID-19 [...] encounter Miscellaneous Notes * Telephone Encounter - Orly Manzo OSA - 07/15/2023 1:39 PM EST Discussed GOLD requirement, patient acknowledges and understands. Pt aware of insurance requirements and pcp change. Pt wants to hold off on setting up for now, will let us know if he wants to sign up. Tour completed 07.15.23. documented in this encounter Plan of Treatment Upcoming Encounters Date Type Department Care Team (Late st Contact Info) Description 08/04/2023 8:20 AM EST Laboratory Laboratory [facility] [place] [address] [place] [phone] [place] [address] [facility] [place] [address] 08/04/2023 9:30 AM EST Hem/Onc Treatment Hematology/Oncology Treatment, [place] [address] [place] [address] Danielle, Chair 5 Hem Onc [facility] [address] [place] [address] 08/06/2023 8:20 AM EST Office Visit Family Practice [facility] [address] [facility] [place] [address] Carosn Gallardo, [address] [place] [address] 08/25/2023 7:30 AM EST Laboratory Laboratory [facility] Danielle [place] [address] [place] [phone] Danielle [facility] [place] [address] [place] [address] 08/25/2023 8:00 AM EST Office Visit Hematology/Oncology [facility] Danielle [place] [address] [place] [address] Susie Epstein MD [address] [place] [address] 08/25/2023 8:30 AM EST Hem/Onc Treatment Hematology/Oncology Treatment, [place] [address] [place] [address] Park, Chair 5 Hem Onc [address] [place] [address] Scheduled Procedures Name Priority Associated Diagnoses Date/Ti [...] Depression Screening 03/11/2024 03/11/2023 GFR 07/14/2024 07/14/2023, 0 07/2023, 06/02/2023, Additional history exists TSH 07/14/2024 07/14/2023, 0 07/2023, 06/02/2023, Additional history exists COLONOSCOPY-EVERY 5 YRS AGES 18-100 07/30/2027 07/30/2022, 07/30/2022, 03/08/2019, Additional history exists Lipid Panel 12/12/2027 12/11/2022, 12/2021, 11/26/2021, Additional history exists DTaP,Tdap,and Td [...] this encounter Medical Devices Implanted Type Area Liability Claims Representative Device Identifier Shelf Expiration Date Model / Serial / Lot Port Implant W/8f Poly Cath - [id number] Implanted:Qty : 1 on 04/22/2023 by Kaiden Armenta MD at [facility] Right: Chest CR BARD : PERIPHERAL VASCULAR [id number] 11/19/2024 [id number] / / [id number] documented as of this encounter Advance Directives Documents on File Type Date Recorded Patient Snack Bar Attendant Expl anation Advance Directives and Living Will 09/07/2017 LIVING WILL Latest Code Status on File Code Status Date Activated Date Inactivated Comments Full Code 03/04/2023 7:10 AM 03/04/2023 3:47 PM Question Answer Comments Discussion of Advance Directives occurred with: Not Discussed due to patient's condition Care Teams Fleet Administrative Assistant Relationship Specialty Start Date End Date Carson Gallardo DO [address] [place] [address] PCP - General Family Medicine 07/18/19 documented as of this encounter
--- OUTSIDE RECORDS SUMMARY | 2023-10-08 03:58 | External Medical Summary | Summary of Care ---
Author Name Unknown Organization [facility] Address [address] [place] [address] Phone [phone] Care Team Providers Care Seamer Elastic Band Name Role Phone Carson Gallardo Primary Care Provider Reason for Visit * Reason Comments Re-Check Chemo recheck Encounter Details Date Type Department Care Team (Late st Contact Info) Description 07/14/2023 9:00 AM EST Office Visit Hematology/Oncology [facility] [address] [facility] [place] [address] Susie Epstein MD [address] [facility] [place] [address] Malignant melanoma of face (HCC)* Allergies Active [...] METFORMIN HCL ER (OSM) 500 MG PO [id number]:Met carter Quantose IR Research Study*[id number] Take as directed by study staff 400 [...] meds) 100 Tablet 3 06/25/2023 Active Ipratropium Roper 0.03 % Nasal Solution (Atrovent) Administer 2 [...] Impaired fasting glucose 04/11/201404/2020 Metabolon Quantose [facility] Study*[id number] 01/20/2014 04/10/2014 Overview: METABOLON QUANTOSE IR STUDY. PROJECT: #[id number], PIPE ORGAN TUNER AND REPAIRER: Tarun Nieto MD/ Dejuan Magdaleno MD. SUMMARY: The Use of a Novel Insulin Resistance Test as a Monitoring Indicator of Glycemic Control in Prediabetics and Diabetics treated with metformin combined with lifestyle intervention. CONTACTS: During normal business hours, contact Lily Burgos, RN, BSN at ; after hours Poultry Barn Manager via the [facility] fractionating still operator Impotence of organic origin 01/09/2014 08/31/2019 Epididymitis 01/09/2014 03/09/2017 Elevated prostate specific antigen (PSA) 01/09/2014 01/09/2014 Dry eye syndrome 12/31/2012 08/31/2019 Low testosterone 12/31/2012 08/31/2019 Family history of GI malignancy 07/09/2012 08/31/2019 Other specified hypothyroidism 08/19/2006 08/31/2019 ADVANCE DIRECTIVE INFORMATION 2006 08/31/2019 Overview: Information given to patient. DISC DIS [id number] - bulge L3-4, L4-5 02/21/2002 08/31/2019 FAM [...] Sign Reading Time Taken Comments Blood Pressure 129/78 07/14/2023 8:52 AM EST Pulse 83 07/14/2023 8:52 AM EST Temperature 37.1 C (98.7 F) 07/14/2023 8:52 AM ES T Respiratory Rate 18 07/14/2023 8:52 AM EST Oxygen Saturation 95% 07/14/2023 8:52 AM EST Inhaled Oxygen Concentration - - Weight 93.4 kg (205 lb 14.4 oz) 07/14/2023 8:52 AM EST Height - - Body Mass Index 29.54 04/22/2023 8:11 AM EDT documented in this encounter Progress Notes * Susie Epstein MD - 07/14/2023 8:54 AM EST Outpatient Consult Note Data Source: Patient, Epic record. Data Source: Patient, Epic record. 07/14/2023 8:54 AM Dylan Owen [id number] 73 year old Patient Encounter: HEMATOLOGY/ONCOLOGY [facility] Cancer Diagnosis: Invasive melanoma diagnosis of [...] above the subcutis. The invasive component is [place] level V. One dermal mitoses per square [...] from the prior specimen from this anatomiclocation ([id number]) as well as information from the current specimen if possible. Certain parameters such as Breslow depth, Apoilnar level, and ulceration are often difficult or impossible to accurately determine in excision specimens when a prior sampling/biopsy has been performed. The prior reported T category of pT4a remains unchanged from the original synoptic report for case [id number]. Junctional melanocytic hyperplasia (of sun damaged skin) [...] of Lymph Nodes Examined 1 Number of [place] Nodes Examined 1 PATHOLOGIC STAGE CLASSIFICATION (pTNM, AJCC 8th Edition) pT Category pT4a pN Category pN0 PET scan was done on 03/03/2023 which shows no evidence of metastatic disease and there was a calcified 3.6 x 2.7 cm left calvarial mass consistent with meningioma. Interval History: He is having issues with sinus problem and drainage with the left ear pain. Denies any fever, chestpain palpitation abdominal pain or distention, skin rash, change in the bowel habits, nausea, vomiting, fever. Denies any hematuria, hematochezia. LABS/IMAGING: Results for orders placed or performed in visit on 07/14/23 CBC Result Value Ref Range WBC 8.01 4.00 - 10.80 K/uL RBC 4.32 4.50 - 5.25 M/uL HGB 13.3 (L) 14.0 - 16.8 g/dL HCT 39.3 (L) 40.0 - 48.4 % MCV 91.0 82.0 - 99.5 fL MCH 30.8 27.0 - 34.0 pg MCHC 33.8 32.0 - 36.0 g/dL RDW 13.7 11.5 - 15.5 % PLT 207 140 - 400 K/uL MPV 9.7 6.6 - 11.1 fL DIFFERENTIAL, AUTOMATED Result Value Ref Range WBC 8.01 4.00 - 10.80 K/uL Neutrophils % 50.3 40.0 - 75.0 % Lymphocytes % 33.7 18.0 - 42.0 % Monocytes % 15.9 (H) 1.0 - 11.0 % Eosinophils % 0.0 0.0 - 6.0 % Basophils % 0.1 0.0 - 2.0 % Absolute Neutrophils 4.03 1.80 - 7.70 K/uL Absolute Lymphocytes 2.70 1.00 - 4.80 K/ul Absolute Monocytes 1.27 (H) 0.00 - 1.10 K/uL Absolute Eosinophils 0.00 0.00 - 0.70 K/uL Absolute Basophils 0.01 0.00 - 0.20 K/uL All his blood counts and electrolytes are in acceptable range. REVIEW OF SYSTEMS: General: No Fever, chills, night sweats, or weight loss. HEENT: No change in visual acuity, blurred or double vision. No epistaxis, complain of facial pain on left side and nasal congestion. Denies dysphagia, no muscosal ulceration, or sores [...] Take 1 Capsule by mouth at bedtime. LORAzepam (ATIVAN) 0.5 MG Tablet Take 1 Tab by mouth every 6 hours as needed for Anxiety. 30 Tab 0 Metamucil [facility] Fiber 58.12 % Oral Packet [...] or other meds) 100 Tablet 3 Ipratropium Roper 0.03 % Nasal Solution (Atrovent) Administer 2 Sprays into nostril in the morning and 2 Sprays before bedtime. 30 mL 3 No current facility-administered medications for this visit. Social History Tobacco Use Smoking status: Former Packs/day: 1.50 Years: 21.00 Additional pack years: 0.00 Total pack years: 31.50 Types: Cigarettes Quit date: 10/04/1990 Years since quittin.7 Smokeless tobacco: Never Vaping Use Vaping Use: Never used Substance Use Topics Alcohol use: Yes Alcohol/week: 28.0 standard drinks of alcohol Types: 28 12 oz of beer per week Comment: 4 beer/day Drug use: No Review of patient's allergies indicates: Allergen Reactions Sulfamethoxazole-Trimethoprim Fever and Other (Please comment) PHYSICAL EXAMINATION: General Appearance: Healthy appearing patient in no acute distress BP 129/78 (BP Site: Left Arm, BP Position: Sitting, BP Cuff Size: Regular) | Pulse 83 | Temp 37.1 C (98.7 F) (Tympanic) | Resp 18 | Wt 93.4 kg (205 lb 14.4 oz) | SpO2 95% | BMI 29.54 kg/m | BSA2.15 m Vitals reviewed. HEENT: No oral or pharyngeal masses, ulceration or thrush noted, sinus tenderness on the left maxillary area. Neck is supple with no thyromegaly or [...] receiving adjuvant Keytruda. He is complaining of nasal congestion and pain in the sinus area. He has some tenderness specially in the left maxillary sinus. I will prescribe Augmentin twice a day for 7 days. Discussed with the patient about diagnosis and reviewed all the available blood test result with him. We will continue current treatment. PLAN: Continue Keytruda on every 3 weeks basis. I also prescribed Augmentin. He will return to clinic forfollow-up in 6 weeks. The patient voiced understanding of all of [...] documented in this encounter Nursing Notes * Carmen Junior LPN - 07/14/2023 8:54 AM EST Patient identifed by name and birthdate Do you have any concerns about pain management for today's visit? Yes. Patient instructed to discuss pain concerns with provider during the visit today Living Will or Advance Directive for Health Care as noted on the problem list. [facility] is a way you can talk to your provider on line through e-mail. Would you like to sign up? I can activate it for you? NO Filed Vitals: 07/14/23 0852 BP: 129/78 Pulse: 83 Resp: 18 Temp: 37.1 C (98.7 F) TempSrc: Tympanic SpO2: 95% Weight: 93.4 kg (205 lb 14.4 oz) Patient was instructed to not get up on the exam table/exam chair until directed and assisted by their provider; patient is to remain seated in the chair/ wheelchair/ exam table/ exam chair for fall prevention and safety reasons. Patient is aware to have assistance to step down off exam table/exam chair with personnel. Patient voiced full comprehension of instructions. Pt c/o sinus pain. Pain behind left eye and left ear. Pt reports green snot in the morning and feels he may have some type of infection. Pt c/o and upset stomach and sometimes gets dizzy. Rates pain 1/10. documented in this encounter Plan of Treatment Upcoming Encounters Date Type Department Care Team (Late st Contact Info) Description 08/06/2023 8:20 AM EST Office Visit [facility] [address] [place] [address] Carson Gallardo DO [address] [place] [address] Scheduled Procedures Name Priority Associated Diagnoses Date/Ti [...] 10/08/2021, 09/17/2020 Depression Screening 03/11/2024 03/11/2023 TSH 06/23/2024 06/23/2023, 05/22, 05/12/2023, Additional history exists GFR 07/14/2024 07/14/2023, 07/2023, 06/02/2023, Additional history exists COLONOSCOPY-EVERY 5 [...] this encounter Medical Devices Implanted Type Area Professor Of Mechanical Engineering Device Identifier Shelf Expiration Date Model / Serial / Lot Port Implant W/8f Poly Cath - [id number] Implanted:Qty : 1 on 04/22/2023 by Kaiden Armenta MD at OR [facility] Right: Chest CR BARD : PERIPHERAL VASCULAR [id number] 11/19/2024 [id number] / / [id number] documented as of this encounter Visit Diagnoses Diagnosis Malignant melanoma of face (HCC)- Primary Malignant melanoma of skin of other and unspecified parts of face documented in this encounter Advance Directives Documents on File Type Date Recorded Patient Gym Attendant Expl anation Advance Directives and Living Will 09/07/2017 LIVING WILL Latest Code Status on File Code Status Date Activated Date Inactivated Comments Full Code 03/04/2023 7:10 AM 03/04/2023 3:47 PM Question Answer Comments Discussion of Advance Directives occurred with: Not Discussed due to patient's condition Care Teams Seamer Elastic Band Relationship Specialty Start Date End Date Carson Gallardo DO [address] [place] [address] PCP - General Family Medicine 07/18/19 documented as of this encounter"
--- OUTSIDE RECORDS SUMMARY | 2023-10-08 03:58 | External Medical Summary ---
Author Name Unknown Address Unknown Organization K09:[facility] [place] [place] [address] Laboratory Report Ordering Provider Test Date Status CHRIS MCCRAY 07/14/2023 08:38:42 Final Observation Date Value Abnormality Reference (Units ) Status WBC, Total 07/14/2023 08:38:42 8.01 4.00-10.8 0 (K/uL) Final RBC 07/14/2023 08:38:42 4.32 4.50-5.25 (M/uL) Final Hemoglobin 07/14/2023 08:38:42 13.3 Below low normal 14 .0-16.8 (g/dL) Final HCT 07/14/2023 08:38:42 39.3 Below low normal 40. 0-48.4 (%) Final MCV 07/14/2023 08:38:42 91.0 82.0-99.5 (fL) Final MCH 07/14/2023 08:38:42 30.8 27.0-34.0 (pg) Final MCHC 07/14/2023 08:38:42 33.8 32.0-36.0 (g/dL) Final RDW 07/14/2023 08:38:42 13.7 11.5-15.5 (%) Final Platelets 07/14/2023 08:38:42 207 140-400 (K /uL) Final MPV 07/14/2023 08:38:42 9.7 6.6-11.1 ( fL) Final Performing Location [facility] [place] [place] [address]
--- OUTSIDE RECORDS SUMMARY | 2023-10-08 03:58 | External Medical Summary ---
Author Name Unknown Address Unknown Organization K01:[facility] [place] - [address] [facility] [place] [address] Laboratory Report Ordering Provider Test Date Status CHU ALEXANDER 08/04/2023 08:28:55 Final Observation Date Value Abnormality Reference (Units ) Status Triglyceride 08/04/2023 08:28:55 89 <=174 ( mg/dL) Final Triglyceride Reference Range s (mg/dL):
<150 Acceptable
150-174 Borderline high
175-499 High
>=500 Very high Cholesterol 08/04/2023 08:28:55 142 <200 (mg /dL) Final Total Cholesterol Reference Ranges (mg/dL):
<200 Desirable
200-239 Borderline high
>=240 High HDL 08/04/2023 08:28:55 61 >39 (mg/dL ) Final HDL Cholesterol Reference Ra nges (mg/dL):
>=60 High (Desirable)
<50 Low (Undesirable) For Females
<40 Low (Undesirable) For Males NON-HDL CHOLESTEROL 08/04/2023 08:28:55 81 <=159 (mg/dL) Final Non-HDL Cholesterol Referenc e Range (mg/dL):
<100 Target level for high risk ASCVD patient
<130 Optimal for general population
130-159 Near optimal for general population
160-189 Borderline High
190-219 High
>=220 Very High LDL, (calculated) 08/04/2023 08:28:55 63 <= 129 (mg/dL) Final LDL Cholesterol Reference Ra nges (mg/dL):
<70 Target level for high risk ASCVD patient
<100 Optimal for general population
100-129 Near optimal for general population
130-159 Borderline high
160-189 High
>=190 Very high Performing Location LAB[facility]AT[facility] [place] - [address] [place] [address]
--- OUTSIDE RECORDS SUMMARY | 2023-10-08 03:58 | External Medical Summary ---
Author Name Unknown Address Unknown Organization K01:[facility] [place] - [address] [facility] [address] Laboratory Report Ordering Provider Test Date Status CHRIS MCCRAY 08/04/2023 08:28:55 Final Observation Date Value Abnormality Reference (Units ) Status TSH 08/04/2023 08:28:55 3.43 0.27-4.20 (uIU/mL) Final Performing Location [facility] - [address] [place] [address]
--- OUTSIDE RECORDS SUMMARY | 2023-10-08 03:58 | External Medical Summary | Summary of Care ---
Author Name Unknown Organization [facility] Address [address] [place] [address] Phone [phone] Care Team Providers Care Church Communications Administrator Name Role Phone Carson Gallardo Primary Care Provider Reason for Visit * Reason Comments Chemotherapy C6D1 Keytruda * Episode Based Medications (Routine) - Authorized Specialty Diagnoses / Procedures Referred By Contyakelin t Referred To Contact Diagnoses Malignant melanoma of face (HCC) Procedures MO INJ PEMBROLIZUMAB Susie Epstein MD [address] [place] [address] Anc Hem/Onc [facility] DEPT CLOSED - 05/05/23 [address] [facility] [place] [address] Referral ID Status Reason Start Date Expiration Date V isits Requested Visits Authorized [id number] Authorized 03/17/2023 11/22/2023 99 99 Encounter Details Date Type Department Care Team (Latest Contact Info) Description 07/14/2023 9:30 AM EST Hem/Onc Treatment Hematology/Oncolog y Treatment, [place] [address] [place] [address] Danielle, Chair [address] Hem Onc Scen[address] [place] [address] Malignant melanoma of face (HCC)*; Encounter for [...] METFORMIN HCL ER (OSM) 500 MG PO [id number]:Met abolheather Quantose IR Research Study*[id number] Take as directed by study staff 400 [...] meds) 100 Tablet 3 06/25/2023 Active Ipratropium [place] 0.03 % Nasal Solution (Atrovent) Administer 2 [...] fasting glucose 04/11/201404/2020 Metabolon Quantose IR Resear Study*[id number] 01/20/2014 04/10/2014 Overview: METABOLON QUANTOSE IR STUDY. PROJECT: #[id number], ENGINEERING MGR: Tarun Nieto MD/ Dejuan Magdaleno MD. SUMMARY: The Use of a Novel Insulin Resistance Test as a Monitoring Indicator of Glycemic Control in Prediabetics and Diabetics treated with metformin combined with lifestyle intervention. CONTACTS: During normal business hours, contact Lily Burgos RN, BSN at ; after hours Hydraulic Press Tender via the [facility] hospital brush operator Impotence of organic origin 01/09/2014 08/31/2019 Epididymitis 01/09/2014 03/09/2017 Elevated prostate specific antigen (PSA) 01/09/2014 01/09/2014 Dry eye syndrome 12/31/2012 08/31/2019 Low testosterone 12/31/2012 08/31/2019 Family history of GI malignancy 07/09/2012 08/31/2019 Other specified hypothyroidism 08/19/2006 08/31/2019 ADVANCE DIRECTIVE INFORMATION 2006 08/31/2019 Overview: Information given to patient. DISC DIS [id number] - bulge L3-4, L4-5 02/21/2002 08/31/2019 FAM [...] Description 08/04/2023 8:20 AM EST Laboratory Laboratory [facility] [address] [place] [id number] [place], Lab Scenery [address] [place] [address] 08/04/2023 9:30 AM EST [facility] [address] [facility] [place] [address] Danielle, Chair 5 Hem Onc Scenery [address] [place] [address] 08/06/2023 8:20 AM EST Office Visit [facility] [address] [place] [address] Carson Gallardo DO [address] [place] [address] 08/25/2023 7:30 AM EST Laboratory Laboratory [facility] [place] [address] [place] [id number] Danielle, Lab Scenery [address] [place] [address] 08/25/2023 8:00 AM EST Office Visit Hematology/Oncology [facility] [place] [address] [place] [address] Susie Epstein MD [address] [place] [address] 08/25/2023 8:30 AM EST Hem[facility] [place] [address] Danielle, Chair 5 Hem Onc Scenery [address] [place] [address] Scheduled Procedures Name Priority Associated Diagnoses Date/Ti [...] this encounter Medical Devices Implanted Type Area Final Operations Technician Device Identifier Shelf Expiration Date Model / Serial / Lot Port Implant W/8f Poly Cath - [id number] Implanted:Qty : 1 on 04/22/2023 by Kaiden Armenta MD at OR [facility] Right: Chest CR BARD : PERIPHERAL VASCULAR [id number] 11/19/2024 [id number] / / [id number] documented as of this encounter Visit Diagnoses [...] ONCE PRN Other, Hypersensitivity Reaction, Starting on Thu07/14/23 at 0953, Until Thu07/15/23 at 0952, For 24 hours EPINEPHrine 1 MG/ML inj 0.3 mg 0.3 mg, Intramuscular, ONCE PRN Other, Hypersensitivity Reaction or Anaphylaxis, Starting on Thu07/14/23 at 0953, Until Thu07/15/23 at 0952, For 24 hours hEParin 100 UNIT/ML Lock Flush inj 500 Units 500 Units (5 mL), IV Lock, PRN Other, IV Flush, Starting on Thu07/14/23 at 0953, Until Thu07/15/23 at 0952, For 24 hours, Do not flush if lock, PICC, or central line not in place; IV infusing or unable to flush. Given 07/14/2023 10:26 AM EST 500 Units Hydrocortisone Sod Suc (PF) (Solu-Cortef) inj 100 mg 100 mg, IV Push, ONCE PRN Other, Hypersensitivity Reaction, Starting on Thu07/14/23 at 0953, Until Thu07/15/23 at 0952, For 24 hours NSS infusion Intravenous, at 50 mL/hr, PRN, Starting on Thu07/14/23 at 1100, Until Discontinued, KVO Start Infusion 07/14/2023 9:50 AM EST 50 mL/hr oxygen GAS Inhalation, OXYGEN, First dose on Thu07/14/23 at 1030, Until Discontinued, Device/Managed by: Low Flow Device, [...] Flush, Starting on Thu07/14/23 at 0953, Until Thu07/15/23 at 0952, For 24 hours, Do not flush if lock, PICC, or central line not in place; IV infusing or unable to flush. Given 07/14/2023 10:26 AM EST 10 mL Inactive Administered Medications - up to 3 most recent administrations Medication Order MAR Action Action Date Dose Rate Site Pembrolizumab (Keytruda) 200 mg in NSS 100 mL infusion 200 mg, IV Piggyback, ONCE, 1 dose, On Thu07/14/23 at 1130, Administer over 30 Minutes, Infuse through 0.2 micron filter. Start Infusion 07/14/2023 9:54 AM EST 200 mg 200 mL/hr documented in this encounter Advance Directives Documents on File Type Date Recorded Patient Sawyer Cork Slabs Expl anation Advance Directives and Living Will 09/07/2017 LIVING WILL Latest Code Status on File Code Status Date Activated Date Inactivated Comments Full Code 03/04/2023 7:10 AM 03/04/2023 3:47 PM Question Answer Comments Discussion of Advance Directives occurred with: Not Discussed due to patient's condition Care Teams Church Communications Administrator Relationship Specialty Start Date End Date Carson Gallardo DO [address] [place] [address] PCP - General Family Medicine 07/18/19 documented as of this encounter
--- OUTSIDE RECORDS SUMMARY | 2023-10-08 03:59 | External Medical Summary | Summary of Care ---
Author Name Unknown Organization [facility] Address [address] [place] [address] Phone [phone] Care Team Providers Care Bobbin Fixer Name Role Phone Carson Gallardo Primary Care Provider Reason for Visit * Reason Onset Date Comments Insurance 06/16/2023 ac Encounter Details Date Type Department Care Team (Late st Contact Info) Description 06/16/2023 Telephone Hematology/Oncology Treatment, [place] [address] [place] [address] Susie Epstein MD [address] [place] [address] Insurance (ac) Allergies Active Allergy Reactions Criticality Noted Date Comments Sulfamethoxazole-Trimethop rim Fever,Other (Please comment) 09/13/2019 documented as of this encounter (statuses as of 06/23/2023) Medications Medication Sig Dispensed Refills Start Date End Date Status FISH OIL 1000 MG PO CAPS Take by mouth. 0 0 2006 Active CENTRUM SILVER PO TABS Take by mouth. 0 Active ADVIL 200 MG PO CAPS Take by mouth. 0 Active Loratadine 10 MG Oral CapsuleIndications: in [...] every 6 hours as needed. 0 Active metFORMIN HCl ER 500 MG Oral Tablet Extended Release 24 Hour (Glucophage XR) Take 2 Tablets by mouth at bedtime. 180 Tablet 3 07/15/2022 Active Atorvastatin Calcium 80 MG Oral Tablet (Lipitor) TAKE 1 TABLET BY MOUTH AT BEDTIME 90 Tablet 3 08/13/2022 Active Ipratropium [place] 0.03 % Nasal Solution (Atrovent) ADMINISTER 2 SPRAYS IN EACH NOSTRIL TWO TIMES DAILY 30 mL 3 09/25/2022 Active Omeprazole 20 MG Oral Capsule Delayed Release (PriLOSEC) Take 1 Capsule by mouth in the morning. 90 Capsule 3 02/05/2023 Active Terbinafine HCl 1 % External Cream (LamISIL AT ATHLETE'S FOOT)Indications:Ti leatha pedis, unspecified laterality Apply to the affected area of the feet twice daily for 14-28 days. 42 g 5 02/18/2023 Active Levothyroxine Sodium 88 MCG Oral Tablet (Levoxyl) Take 1 Tablet by mouth daily first thing in the morning. (at least 30 min prior to breakfast or other meds) 90 Tablet 3 03/03/2023 Active Lisinopril 2.5 MG Oral Tablet (Prinivil) Take 1 Tablet by mouth in the morning. 30 Tablet 11 04/13/2023 Active Apixaban 5 MG Oral Tablet (Eliquis)Indication s:Typical atrial flutter (HCC),HTN, goal below 140/90 Take 1 Tablet by mouth in the morning and 1 Tablet before bedtime. 180 Tablet 3 04/30/2023 Active Lidocaine-Prilocain e 2.5-2.5 % External Cream (Emla)Indications:M alignant melanoma of face (HCC) APPLY TO SKIN OVER MEDIPORT & COVER 1HR PRIOR TO ACCESSING. 30 g 1 05/05/2023 Active Metoprolol Succinate ER 25 MG Oral Tablet Extended Release 24 Hour (toPROL XL)Indications:Typi kennedi atrial flutter (HCC),HTN, goal below 140/90 TAKE 1 TABLET BY MOUTH EVERY MORNING 90 Tablet 3 05/11/2023 Active documented as of this encounter (statuses as of 06/23/2023) Active Problems Problem Noted Date Diagnosed Date [...] as of this encounter (statuses as of 06/23/2023) Resolved Problems Problem Noted Date Diagnosed Date Resolved Date Family history of malignant neoplasm of prostate 03/11/2018 08/31/2019 Impaired fasting glucose 04/11/201404/2020 Metabolon Quantose IR Resear Study*[id number] 01/20/2014 04/10/2014 Overview: METABOLON QUANTOSE IR STUDY. PROJECT: #[id number], DESIGN STUDIO CONSULTANT: Tarun Nieto MD/ Dejuan Magdaleno MD. SUMMARY: The Use of a Novel Insulin Resistance Test as a Monitoring Indicator of Glycemic Control in Prediabetics and Diabetics treated with metformin combined with lifestyle intervention. CONTACTS: During normal business hours, contact Lily Burgos RN, BSN at ; after hours Dowel Pin Man via the [facility] electromagnet crane operator Impotence of organic origin 01/09/2014 08/31/2019 Epididymitis 01/09/2014 03/09/2017 Elevated prostate specific antigen (PSA) 01/09/2014 01/09/2014 Dry eye syndrome 12/31/2012 08/31/2019 Low testosterone 12/31/2012 08/31/2019 Family history of GI malignancy 07/09/2012 08/31/2019 Other specified hypothyroidism 08/19/2006 08/31/2019 ADVANCE DIRECTIVE INFORMATION 2006 08/31/2019 Overview: Information given to patient. DISC DIS [id number] - bulge L3-4, L4-5 02/21/2002 08/31/2019 FAM HX-DIABETES MELLITUS - Dad 01/31/1999 08/31/2019 Mixed dyslipidemia 02/01/1998 9 Overview: Per Lipid Taxonomy. Idiopathic urticaria 020 documented as of this encounter (statuses as of 06/23/2023) Immunizations Name Administration Dates Next Due COVID-19 [...] Telephone Encounter - Danilo Reeves RN - 06/23/2023 3:24 PM EST Referral entered. * Telephone Encounter - Anjana Soto RN - 06/23/2023 9:59 AM EST Spoke to Juanis- parvez is approved, waiting for official fax to enter information into referral. Patient updated, will wait for labs to result and get treatment this morning. * Telephone Encounter - Anjana Soto RN - 06/23/2023 9:17 AM EST Auth in process. Called patient- he is already on the way here. He will stop by to see what update on auth is after he has lab work drawn. * Telephone Encounter - Marcella Jiang OSA - 06/16/2023 12:41 PM EST Can't send for auth until 06/23/23 * Telephone Encounter - Anjana Soto RN - 06/16/2023 11:33 AM EST Patients insurance is changing to [employer] 06/22/23. Scheduled for labs/ keytruda 06/23/23. Called patient. He states that he does have his new insurance card, will stop by a [email or web address] officeto have it scanned in. ID # [id number]. Precert: FYI for when insurance becomes active 06/22/23. documented in this encounter Plan of Treatment Upcoming Encounters Date Type Department Care Team (Late st Contact Info) Description 07/14/2023 8:30 AM EST Laboratory [facility] [address] [place] [id number] [place] [address] [place] [address] 07/14/2023 9:00 AM EST Office Visit Hematology/Oncology [facility] [address] [place] [address] Susie Epstein MD [address] [place] [address] 07/14/2023 9:30 AM EST Hem/Onc Treatment Hematology/Oncology Treatment, [place] [address] [place] [address] [place], Chair 8 Hem Onc [facility] [address] [place] [address] 08/06/2023 8:20 AM EST Office Visit [facility] [address] [place] [address] Carson Gallardo, [address] [place] [address] Scheduled Procedures Name Priority Associated Diagnoses Date/Ti [...] 10/08/2021, 09/17/2020 Depression Screening 03/11/2024 03/11/2023 TSH 06/02/2024 06/02/2023, 04/23, 04/20/2023, Additional history exists GFR 06/23/2024 06/23/2023, 05/22, 05/12/2023, Additional history [...] this encounter Medical Devices Implanted Type Area Hand Packager Device Identifier Shelf Expiration Date Model / Serial / Lot Port Implant W/8f Poly Cath - [id number] Implanted:Qty : 1 on 04/22/2023 by Kaiden Armenta MD at OR [facility] Right: Chest CR BARD : PERIPHERAL VASCULAR [id number] 11/19/2024 [id number] / / [id number] documented as of this encounter Advance Directives Documents on File Type Date Recorded Patient Dry Cleaner Hand Expl anation Advance Directives and Living Will 09/07/2017 LIVING WILL Latest Code Status on File Code Status Date Activated Date Inactivated Comments Full Code 03/04/2023 7:10 AM 03/04/2023 3:47 PM Question Answer Comments Discussion of Advance Directives occurred with: Not Discussed due to patient's condition Care Teams Bobbin Fixer Relationship Specialty Start Date End Date Carson Gallardo DO [address] [place] [address] PCP - General Family Medicine 07/18/19 documented as of this encounter
--- OUTSIDE RECORDS SUMMARY | 2023-10-08 03:59 | External Medical Summary | Summary of Care ---
Author Name Unknown Organization [facility] Address [address] [place] [address] Phone [phone] Care Team Providers Care Remelt Sugar Boiler Name Role Phone Carson Gallardo Primary Care Provider Reason for Visit * Reason Comments Outpatient Testing Encounter Details Date Type Department Care Team (Late st Contact Info) Description 06/23/2023 9:30 AM EST Laboratory [facility] [address] [place] [phone] [place], Lab Scenery [address] [place] [address] Malignant melanoma of face (HCC); Encounter for [...] BEDTIME 90 Tablet 3 08/13/2022 Active Ipratropium [place] 0.03 % Nasal Solution (Atrovent) ADMINISTER 2 [...] fasting glucose 04/11/201404/2020 Metabolon Quantose IR Resear Study*[id number] 01/20/2014 04/10/2014 Overview: METABOLON QUANTOSE IR STUDY. PROJECT: #[id number], GRINDING ROOM SUPERVISOR: Tarun Nieto MD/ Dejuan Magdaleno MD. SUMMARY: The Use of a Novel Insulin Resistance Test as a Monitoring Indicator of Glycemic Control in Prediabetics and Diabetics treated with metformin combined with lifestyle intervention. CONTACTS: During normal business hours, contact Lily Burgos RN, BSN at ; after hours Project Manager Senior via the [facility] dustless operator Impotence of organic origin 01/09/2014 08/31/2019 Epididymitis 01/09/2014 03/09/2017 Elevated prostate specific antigen (PSA) 01/09/2014 01/09/2014 Dry eye syndrome 12/31/2012 08/31/2019 Low testosterone 12/31/2012 08/31/2019 Family history of GI malignancy 07/09/2012 08/31/2019 Other specified hypothyroidism 08/19/2006 08/31/2019 ADVANCE DIRECTIVE INFORMATION 2006 08/31/2019 Overview: Information given to patient. DISC DIS [id number] - bulge L3-4, L4-5 02/21/2002 08/31/2019 FAM [...] Care Team (Late st Contact Info) Description 06/23/2023 10:30 AM EST Hem/Onc Treatment Hematology/Oncology Treatment, [place] [address] [place] [address] [place], Chair 3 Hem Onc [facility] [address] Arrived 07/14/2023 8:30 AM EST Laboratory Laboratory [facility] [address] [place] [address] [place], Lab [place] [place] [address] 07/14/2023 9:00 AM EST Office Visit Hematology/Oncology [facility] [address] [place] [address] Susie Epstein MD [address] [place] [address] 07/14/2023 9:30 AM EST [facility] [address] [place] [address] [place], Chair 8 Hem Onc [place] [address] [place] [address] 08/06/2023 8:20 AM EST Office Visit Family [facility] [address] [place] [address] Carson Gallardo DO [address] [place] [address] Pending Results Name Type Priority Associated Diagnoses Date /Time COMPREHENSIVE METABOLIC PANEL Lab STAT Malignant melanoma of face (HCC) 06/23/2023 9:46 AM EST TSH WITH FREE T4 IF INDICATED Lab STAT Malignant melanoma of face (HCC) Encounter for long-term (current) use of medications 06/23/2023 9:46 AM EST Scheduled Procedures Name Priority Associated [...] 10/08/2021, 09/17/2020 Depression Screening 03/11/2024 03/11/2023 GFR 06/02/2024 06/02/2023, 04/23, 04/20/2023, Additional history exists TSH 06/02/2024 06/02/2023, 04/23, 04/20/2023, Additional history exists COLONOSCOPY-EVERY 5 YRS AGES [...] this encounter Medical Devices Implanted Type Area Manager Wholesale Device Identifier Shelf Expiration Date Model / Serial / Lot Port Implant W/8f Poly Cath - [id number] Implanted:Qty : 1 on 04/22/2023 by Kaiden Armenta MD at OR [facility] Right: Chest CR BARD : PERIPHERAL VASCULAR [id number] 11/19/2024 [id number] / / [id number] documented as of this encounter Procedures Procedure Name Priority Date/Time Associated Diagnosis Comments DIFFERENTIAL, AUTOMATED STAT 06/23/2023 9:46 AM EST Malignant melanoma of face (HCC) CBC STAT 06/23/2023 9:46 AM EST Malignant melanoma of face (HCC) CBC STAT 06/23/2023 9:46 AM EST Malignant melanoma of face (HCC) documented in this encounter Results * (ABNORMAL) DIFFERENTIAL, AUTOMATED (06/23/2023 9:46 AM EST) WBC 6.15 4.00 - 10.80 K/uL 06/23/2023 9:54 AM EST [facility]02 Neutrophils % 50.4 40.0 - 75.0 % 06/23/2023 9:54 AM EST [facility]02 Lymphocytes % 36.4 18.0 - 42.0 % 06/23/2023 9:54 AM EST [facility]02 Monocytes % 13.0(H) 1.0 - 11.0 % 06/23/2023 9:54 AM EST [facility]02 Eosinophils % 0.0 0.0 - 6.0 % 06/23/2023 9:54 AM EST [facility]02 Basophils % 0.2 0.0 - 2.0 % 06/23/2023 9:54 AM EST [facility]02 Absolute Neutrophils 3.10 1.80 - 7.70 K/uL 06/23/2023 9:54 AM EST [facility]02 Absolute Lymphocytes 2.24 1.00 - 4.80 K/ul 06/23/2023 9:54 AM EST [facility]02 Absolute Monocytes 0.80 0.00 - 1.10 K/uL 06/23/2023 9:54 AM EST [facility]02 Absolute Eosinophils 0.00 0.00 - 0.70 K/uL 06/23/2023 9:54 AM EST [facility]02 Absolute Basophils 0.01 0.00 - 0.20 K/uL 06/23/2023 9:54 AM [facility] 56-02 Blood Venous blood specimen / Unknown Venipuncture / Unknown 06/23/2023 9:46 AM EST 06/23/2023 9:46 AM EST Susie Epstein MD LAB BLOOD [facility] 56-[address] [place], [place] [id number] * CBC (06/23/2023 9:46 AM EST) WBC 6.15 4.00 - 10.80 K/uL 06/23/2023 9:54 AM [facility] 56- RBC 4.69 4.50 - 5.25 M/uL 06/23/2023 9:54 AM [facility] 56- HGB 14.6 14.0 - 16.8 g/dL 06/23/2023 9:54 AM [facility] 56- HCT 44.1 40.0 - 48.4 % 06/23/2023 9:54 AM [facility] 56- MCV 94.0 82.0 - 99.5 fL 06/23/2023 9:54 AM [facility] 56-02 MCH 31.1 27.0 - 34.0 pg 06/23/2023 9:54 AM [facility] 56-02 MCHC 33.1 32.0 - 36.0 g/dL 06/23/2023 9:54 AM [facility] 56-02 RDW 14.1 11.5 - 15.5 % 06/23/2023 9:54 AM [facility] 56-02 PLT 186 140 - 400 K/uL 06/23/2023 9:54 AM [facility] 56-02 MPV 9.4 6.6 - 11.1 fL 06/23/2023 9:54 AM [facility] 56-02 Blood Venous blood specimen / Unknown Venipuncture / Unknown 06/23/2023 9:46 AM EST 06/23/2023 9:46 AM EST Susie Epstein MD LAB BLOOD [facility] [place] 56-[address] [place] [address] documented in this encounter Visit Diagnoses Diagnosis Malignant melanoma of face (HCC) Malignant melanoma of skin of other and unspecified parts of face Encounter for long-term (current) use of medications Encounter for long-term (current) use of other medications documented in this encounter Advance Directives Documents on File Type Date Recorded Patient Firmware Manager Expl anation Advance Directives and Living Will 09/07/2017 LIVING WILL Latest Code Status on File Code Status Date Activated Date Inactivated Comments Full Code 03/04/2023 7:10 AM 03/04/2023 3:47 PM Question Answer Comments Discussion of Advance Directives occurred with: Not Discussed due to patient's condition Care Teams Remelt Sugar Boiler Relationship Specialty Start Date End Date Carson Gallardo DO [address] [place] [address] PCP - General Family Medicine 07/18/19 documented as of this encounter
--- OUTSIDE RECORDS SUMMARY | 2023-10-08 03:59 | External Medical Summary | Summary of Care ---
Author Name Unknown Organization [facility] Address [address] [place] [address] Phone [phone] Care Team Providers Care Livestock Rancher Name Role Phone Carson Gallardo Primary Care Provider Reason for Visit * Reason Onset Date Comments Advice 07/13/2023 Lucian Encounter Details Date Type Department Care Team (Late st Contact Info) Description 07/13/2023 Telephone Access Center, [place] [address] [facility] *DO NOT REMOVE THIS DEPARTMENT* [place] [address] Services, Scheduling [address] [place] [address] Advice (Lucian) Allergies Active Allergy Reactions Criticality Noted Date Comments Sulfamethoxazole-Trimethop rim Fever,Other (Please comment) 09/13/2019 documented as of this encounter (statuses as of 07/13/2023) Medications Medication Sig Dispensed Refills Start Date End Date Status FISH OIL 1000 MG PO CAPS Take by mouth. 0 0 2006 Active CENTRUM SILVER PO TABS Take by mouth. 0 Active ADVIL 200 MG PO CAPS Take by mouth. 0 Active METFORMIN HCL ER (OSM) 500 MG PO [id number]:Met catrer Quantose IR Research Study*[id number] Take as directed by study staff 400 [...] meds) 100 Tablet 3 06/25/2023 Active Ipratropium [place] 0.03 % Nasal Solution (Atrovent) Administer 2 Sprays into nostril in the morning and 2 Sprays before bedtime. 30 mL 3 06/24/2023 Active documented as of this encounter (statuses as of 07/13/2023) Active Problems Problem Noted Date Diagnosed Date [...] as of this encounter (statuses as of 07/13/2023) Resolved Problems Problem Noted Date Diagnosed Date Resolved Date Family history of malignant neoplasm of prostate 03/11/2018 08/31/2019 Impaired fasting glucose 04/11/201404/2020 Metabolon Quantose IR Resear Study*[id number] 01/20/2014 04/10/2014 Overview: METABOLON QUANTOSE IR STUDY. PROJECT: #[id number], SALESPERSON HEARING AIDS: Tarun Nieto MD/ Dejuan Magdaleno MD. SUMMARY: The Use of a Novel Insulin Resistance Test as a Monitoring Indicator of Glycemic Control in Prediabetics and Diabetics treated with metformin combined with lifestyle intervention. CONTACTS: During normal business hours, contact Lily Burgos RN, BSN at ; after hours [employer] Certified Internetwork Expert via the [facility] power plant operators supervisor Impotence of organic origin 01/09/2014 08/31/2019 Epididymitis 01/09/2014 03/09/2017 Elevated prostate specific antigen (PSA) 01/09/2014 01/09/2014 Dry eye syndrome 12/31/2012 08/31/2019 Low testosterone 12/31/2012 08/31/2019 Family history of GI malignancy 07/09/2012 08/31/2019 Other specified hypothyroidism 08/19/2006 08/31/2019 ADVANCE DIRECTIVE INFORMATION 2006 08/31/2019 Overview: Information given to patient. DISC DIS [id number]-[id number] - bulge L3-4, L4-5 02/21/2002 08/31/2019 FAM HX-DIABETES MELLITUS - Dad 01/31/1999 08/31/2019 Mixed dyslipidemia 02/01/1998 9 Overview: Per Lipid Taxonomy. Idiopathic urticaria 020 documented as of this encounter (statuses as of 07/13/2023) Immunizations Name Administration Dates Next Due COVID-19 [...] Miscellaneous Notes * Telephone Encounter - Anjana Soto, RN - 07/13/2023 1:25 PM EST Called patient- he states that he has had a head cold x1 week, has congestion. Has had 2 negative COVID tests. Advised him that if he feels up to treatment, ok to still come. He states that he does feel up to coming, will keep appts as scheduled. * Telephone Encounter - Lily Cha OSA - 07/13/2023 11:53 AM EST Patient calling stating he has a head cold, asking if he can still come to his appt. documented in this encounter Plan of Treatment Upcoming Encounters Date Type Department Care Team (Late st Contact Info) Description 07/14/2023 8:30 AM EST Laboratory Laboratory [facility] [address] [place] [address] [place], Lab [facility] [address] [facility] [place] [address] 07/14/2023 9:00 AM EST Office Visit Hematology/Oncology [facility] [address] [place] [address] Susie Epstein MD [address] [place] [address] 07/14/2023 9:30 AM EST [facility] [address] [place] [address] [place], Chair 8 Hem Onc [facility] [address] [facility] [place] [address] 08/06/2023 8:20 AM EST Office Visit Family [facility] [address] [place] [address] Carosn Gallardo DO [address] [place] [address] Scheduled Procedures Name Priority Associated Diagnoses Date/Ti [...] this encounter Medical Devices Implanted Type Area Band Sawyer Device Identifier Shelf Expiration Date Model / Serial / Lot Port Implant W/8f Poly Cath - [id number] Implanted:Qty : 1 on 04/22/2023 by Kaiden Armenta MD at [facility] Right: Chest CR BARD : PERIPHERAL VASCULAR [id number] 11/19/2024 [id number] / / [id number] documented as of this encounter Advance Directives Documents on File Type Date Recorded Patient Associate Pastor Expl anation Advance Directives and Living Will 09/07/2017 LIVING WILL Latest Code Status on File Code Status Date Activated Date Inactivated Comments Full Code 03/04/2023 7:10 AM 03/04/2023 3:47 PM Question Answer Comments Discussion of Advance Directives occurred with: Not Discussed due to patient's condition Care Teams Livestock Rancher Relationship Specialty Start Date End Date Carson Gallardo DO [address] [facility] [place] [address] PCP - General Family Medicine 07/18/19 documented as of this encounter
--- OUTSIDE RECORDS SUMMARY | 2023-10-08 03:59 | External Medical Summary | Summary of Care ---
Author Name Unknown Organization [facility] Address [address] [place] [address] Phone [phone] Care Team Providers Care Slat Twister Name Role Phone Carson Gallardo Primary Care Provider Reason for Visit * Reason Comments Chemotherapy C5D1 Keytruda * Episode Based Medications (Routine) - Pending Review Specialty Diagnoses / Procedures Referred By Tanisha hook Referred To Contact Diagnoses Malignant melanoma of face (HCC) Procedures MO INJ PEMBROLIZUMAB Susie Epstein MD [address] [place] [address] Anc Hem/Onc [place] DEPT CLOSED - 05/05/23 [address] [place] [address] Referral ID Status Reason Start Date Expiration Date V isits Requested Visits Authorized [id number] Pending Review 03/17/2023 06/21/2099 99 99 Encounter Details Date Type Department Care Team (Latest Contact Info) Description 06/23/2023 10:30 AM EST Hem/Onc Treatment Hematology/Oncolog y Treatment, [place] [address] [place] [address] Danielle, Chair 3 Hem Onc Scenery [address] [place] [address] Malignant melanoma of face (HCC)*; Encounter for [...] BEDTIME 90 Tablet 3 08/13/2022 Active Ipratropium [place] 0.03 % Nasal Solution (Atrovent) ADMINISTER 2 [...] glucose 04/11/201404/2020 Metabolon Quantose IR [facility] Study*[id number] 01/20/2014 04/10/2014 Overview: METABOLON QUANTOSE IR STUDY. PROJECT: #[id number], MOTOR POOL DRIVER: Tarun Nieto MD/ Dejuan Magdaleno MD. SUMMARY: The Use of a Novel Insulin Resistance Test as a Monitoring Indicator of Glycemic Control in Prediabetics and Diabetics treated with metformin combined with lifestyle intervention. CONTACTS: During normal business hours, contact Lily Burgos RN, BSN at ; after hours Interior Design Teacher via the [facility] hospital power grader operator Impotence of organic origin 01/09/2014 08/31/2019 Epididymitis 01/09/2014 03/09/2017 Elevated prostate specific antigen (PSA) 01/09/2014 01/09/2014 Dry eye syndrome 12/31/2012 08/31/2019 Low testosterone 12/31/2012 08/31/2019 Family history of GI malignancy 07/09/2012 08/31/2019 Other specified hypothyroidism 08/19/2006 08/31/2019 ADVANCE DIRECTIVE INFORMATION 2006 08/31/2019 Overview: Information given to patient. DISC DIS [id number] - bulge L3-4, L4-5 02/21/2002 08/31/2019 FAM [...] Description 07/14/2023 8:30 AM EST Laboratory Laboratory [facility] [place] [address] [place] [id number] [place], Lab Scenery [address] [facility] [place] [address] 07/14/2023 9:00 AM EST Office Visit Hematology/Oncology [facility] [place] [address] [place] [address] Susie Epstein MD [address] [place] [address] 07/14/2023 9:30 AM EST [facility] [address] [place] [address] Danielle, Chair 8 Hem On[address] Scene [address] [place] [address] 08/06/2023 8:20 AM EST Office Visit [facility] [address] [facility] [place] [address] Carson Gallardo DO [address] [place] [address] Scheduled Procedures Name Priority Associated Diagnoses Date/Ti me COLONOSCOPY FLEXIBLE PROXIMAL DIAGNOSTIC Recall History of colon polyps ESOPHAGOGASTRODUODENOSCOPY ( EGD), FLEXIBLE, TRANSORAL, DIAGNOSTIC Recall Lipoma of other specified sites Health Maintenance Due Date Last Done Comments Hepatitis B (1 of 3 - Risk 3-dose series) 2011 HbA1c 11/10/2023 05/12/2023, 06/2 07/2022, 05/28/2022, Additional history exists Diabetic Eye Exam [...] this encounter Medical Devices Implanted Type Area Automotive Consultant Device Identifier Shelf Expiration Date Model / Serial / Lot Port Implant W/8f Poly Cath - [id number] Implanted:Qty : 1 on 04/22/2023 by Kaiden Armenta MD at OR [facility] Right: Chest CR BARD : PERIPHERAL VASCULAR [id number] 11/19/2024 [id number] / / [id number] documented as of this encounter Visit Diagnoses [...] ONCE PRN Other, Hypersensitivity Reaction, Starting on Thu06/23/23 at 1052, Until Thu06/24/23 at 1051, For 24 hours EPINEPHrine 1 MG/ML inj 0.3 mg 0.3 mg, Intramuscular, ONCE PRN Other, Hypersensitivity Reaction or Anaphylaxis, Starting on Thu06/23/23 at 1052, Until Thu06/24/23 at 1051, For 24 hours hEParin 100 UNIT/ML Lock Flush inj 500 Units 500 Units (5 mL), IV Lock, PRN Other, IV Flush, Starting on Thu06/23/23 at 1052, Until Thu06/24/23 at 1051, For 24 hours, Do not flush if lock, PICC, or central line not in place; IV infusing or unable to flush. Given 06/23/2023 11:29 AM EST 500 Units Hydrocortisone Sod Suc (PF) (Solu-Cortef) inj 100 mg 100 mg, IV Push, ONCE PRN Other, Hypersensitivity Reaction, Starting on Thu06/23/23 at 1052, Until Thu06/24/23 at 1051, For 24 hours NSS infusion Intravenous, at 50 mL/hr, PRN, Starting on Thu06/23/23 at 1200, Until Discontinued, KVO Start Infusion 06/23/2023 10:50 AM EST 50 mL/hr oxygen GAS Inhalation, OXYGEN, First dose on Thu06/23/23 at 1130, Until Discontinued, Device/Managed by: Low Flow Device, [...] Flush, Starting on Thu06/23/23 at 1052, Until Thu06/24/23 at 1051, For 24 hours, Do not flush if lock, PICC, or central line not in place; IV infusing or unable to flush. Given 06/23/2023 11:29 AM EST 10 mL Inactive Administered Medications - up to 3 most recent administrations Medication Order MAR Action Action Date Dose Rate Site Pembrolizumab (Keytruda) 200 mg in NSS 100 mL infusion 200 mg, IV Piggyback, ONCE, 1 dose, On Thu06/23/23 at 1230, Administer over 30 Minutes, Infuse through 0.2 micron filter. Start Infusion 06/23/2023 10:54 AM EST 200 mg 200 mL/hr documented in this encounter Advance Directives Documents on File Type Date Recorded Patient Manager Park Expl anation Advance Directives and Living Will 09/07/2017 LIVING WILL Latest Code Status on File Code Status Date Activated Date Inactivated Comments Full Code 03/04/2023 7:10 AM 03/04/2023 3:47 PM Question Answer Comments Discussion of Advance Directives occurred with: Not Discussed due to patient's condition Care Teams Slat Twister Relationship Specialty Start Date End Date Carson Gallardo DO [address] [place] [id number] PCP - General Family Medicine 07/18/19 documented as of this encounter
--- OUTSIDE RECORDS SUMMARY | 2023-10-08 03:59 | External Medical Summary | Summary of Care ---
Author Name Unknown Organization [facility] Address [address] [place] [address] Phone [phone] Care Team Providers Care Software Asset Management Analyst Name Role Phone Carson Gallardo Primary Care Provider Encounter Details Date Type Department Care Team (Late st Contact Info) Description 07/09/2023 Orders Only Hematology/Oncology, [facility] [address] [place] [address] Susie Epstein MD [address] [place] [address] Allergies Active Allergy Reactions Criticality Noted Date Comments Sulfamethoxazole-Trimethop rim Fever,Other (Please comment) 09/13/2019 documented as of this encounter (statuses as of 07/09/2023) Medications Medication Sig Dispensed Refills Start Date End Date Status FISH OIL 1000 MG PO CAPS Take by mouth. 0 0 2006 Active CENTRUM SILVER PO TABS Take by mouth. 0 Active ADVIL 200 MG PO CAPS Take by mouth. 0 Active METFORMIN HCL ER (OSM) 500 MG PO [id number]:Met carter Quantose IR Research Study*[id number] Take as directed by study staff 400 [...] meds) 100 Tablet 3 06/25/2023 Active Ipratropium [place] 0.03 % Nasal Solution (Atrovent) Administer 2 Sprays into nostril in the morning and 2 Sprays before bedtime. 30 mL 3 06/24/2023 Active documented as of this encounter (statuses as of 07/09/2023) Active Problems Problem Noted Date Diagnosed Date [...] as of this encounter (statuses as of 07/09/2023) Resolved Problems Problem Noted Date Diagnosed Date Resolved Date Family history of malignant neoplasm of prostate 03/11/2018 08/31/2019 Impaired fasting glucose 04/11/201404/2020 Metabolon Quantose IR [facility] Study*[id number] 01/20/2014 04/10/2014 Overview: METABOLON QUANTOSE IR STUDY. PROJECT: #[id number], LITHOGRAPHIC PRINTING MACHINIST: Tarun Nieto MD/ Dejuan Magdaleno MD. SUMMARY: The Use of a Novel Insulin Resistance Test as a Monitoring Indicator of Glycemic Control in Prediabetics and Diabetics treated with metformin combined with lifestyle intervention. CONTACTS: During normal business hours, contact Lily Burgos RN, BSN at ; after hours Job Trainer via the [facility] hospital clamp operator Impotence of organic origin 01/09/2014 08/31/2019 Epididymitis 01/09/2014 03/09/2017 Elevated prostate specific antigen (PSA) 01/09/2014 01/09/2014 Dry eye syndrome 12/31/2012 08/31/2019 Low testosterone 12/31/2012 08/31/2019 Family history of GI malignancy 07/09/2012 08/31/2019 Other specified hypothyroidism 08/19/2006 08/31/2019 ADVANCE DIRECTIVE INFORMATION 2006 08/31/2019 Overview: Information given to patient. DISC DIS [id number] - bulge L3-4, L4-5 02/21/2002 08/31/2019 FAM HX-DIABETES MELLITUS - Dad 01/31/1999 08/31/2019 Mixed dyslipidemia 02/01/1998 9 Overview: Per Lipid Taxonomy. Idiopathic urticaria 020 documented as of this encounter (statuses as of 07/09/2023) Immunizations Name Administration Dates Next Due COVID-19 [...] State Juan Gallo [address] [place] [id number] [place] Scenery [address] [place] [address] 07/14/2023 9:00 AM EST Office Visit Hematology/Oncology Scenery Danielle [place] [address] [place] [address] Susie Epstein MD [address] [place] [address] 07/14/2023 9:30 AM EST Hem/Onc Treatment Hematology/Oncology Treatment, [place] [address] [place] [address] Danielle, Chair 8 Hem Onc Scenery [address] [place] [address] 08/06/2023 8:20 AM EST Office Visit Family [facility] [address] [place] [address] Carson Gallardo DO [address] [place] [address] Scheduled Procedures Name Priority Associated Diagnoses Date/Ti [...] this encounter Medical Devices Implanted Type Area Seafood Clerk Device Identifier Shelf Expiration Date Model / Serial / Lot Port Implant W/8f Poly Cath - [id number] Implanted:Qty : 1 on 04/22/2023 by Kaiden Armenta MD at OR [facility] Right: Chest CR BARD : PERIPHERAL VASCULAR [id number] 11/19/2024 [id number] / / [id number] documented as of this encounter Advance Directives Documents on File Type Date Recorded Patient Rn Procedures Expl anation Advance Directives and Living Will 09/07/2017 LIVING WILL Latest Code Status on File Code Status Date Activated Date Inactivated Comments Full Code 03/04/2023 7:10 AM 03/04/2023 3:47 PM Question Answer Comments Discussion of Advance Directives occurred with: Not Discussed due to patient's condition Care Teams Software Asset Management Analyst Relationship Specialty Start Date End Date Carson Gallardo DO [address] [place] [address] PCP - General Family Medicine 07/18/19 documented as of this encounter
--- OUTSIDE RECORDS SUMMARY | 2023-10-08 03:59 | External Medical Summary | Summary of Care ---
Author Name Unknown Organization [facility] Address [address] [place] [address] Phone [phone] Care Team Providers Care Women Specialist Name Role Phone Catherine Gallardo DO Primary Care Provider Reason for Visit * Reason Comments eRx-Medication Refill Encounter Details Date Type Department Care Team (Late st Contact Info) Description 06/23/2023 Refill Family Practice [facility] [address] [facility] [place] [address] Carey Gallardo MD [address] [place] [address] Allergies Active Allergy Reactions Criticality Noted Date Comments Sulfamethoxazole-Trimethop rim Fever,Other (Please comment) 09/13/2019 documented as of this encounter (statuses as of 06/24/2023) Medications Medication Sig Dispensed Refills Start Date [...] every 6 hours as needed. 0 Active Atorvastatin Calcium 80 MG Oral Tablet (Lipitor) TAKE 1 TABLET BY MOUTH AT BEDTIME 90 Tablet 3 08/13/2022 Active Ipratropium [place] 0.03 % Nasal Solution (Atrovent) ADMINISTER 2 [...] 04/13/2023 Active Apixaban 5 MG Oral Tablet (Eliquis)Indicati ons:Typical atrial flutter (HCC),HTN, goal below 140/90 Take 1 Tablet by mouth in the morning and 1 Tablet before bedtime. 180 Tablet 3 04/30/2023 Active Lidocaine-Priloca ine 2.5-2.5 % External Cream (Emla)Indications :Malignant melanoma of face (HCC) APPLY TO SKIN OVER MEDIPORT & COVER 1HR PRIOR TO ACCESSING. 30 g 1 05/05/2023 Active Metoprolol Succinate ER 25 MG Oral Tablet Extended Release 24 Hour (toPROL XL)Indications:Ty pical atrial flutter (HCC),HTN, goal below 140/90 TAKE 1 TABLET BY MOUTH EVERY MORNING 90 Tablet 3 05/11/2023 Active metFORMIN HCl ER 500 MG Oral Tablet Extended Release 24 Hour (Glucophage XR) TAKE 2 TABLETS BY MOUTH AT BEDTIME 180 Tablet 3 06/24/2023 Active metFORMIN HCl ER 500 MG Oral Tablet Extended Release 24 Hour (Glucophage XR) Take 2 Tablets by mouth at bedtime. 180 Tablet 3 07/15/2022 4 Discontinued documented as of this encounter (statuses as of 06/24/2023) Active Problems Problem Noted Date Diagnosed Date [...] as of this encounter (statuses as of 06/24/2023) Resolved Problems Problem Noted Date Diagnosed Date Resolved Date Family history of malignant neoplasm of prostate 03/11/2018 08/31/2019 Impaired fasting glucose 04/11/201404/2020 Metabolon Quantose IR [facility] Study*[id number] 01/20/2014 04/10/2014 Overview: METABOLON QUANTOSE IR STUDY. PROJECT: #[id number], YARN CARRIER: Tarun Nieto MD/ Dejuan Magdaleno MD. SUMMARY: The Use of a Novel Insulin Resistance Test as a Monitoring Indicator of Glycemic Control in Prediabetics and Diabetics treated with metformin combined with lifestyle intervention. CONTACTS: During normal business hours, contact Lily Burgos RN, BSN at ; after hours Marketing Systems Manager via the [facility] swing type lathe operator Impotence of organic origin 01/09/2014 08/31/2019 Epididymitis 01/09/2014 03/09/2017 Elevated prostate specific antigen (PSA) 01/09/2014 01/09/2014 Dry eye syndrome 12/31/2012 08/31/2019 Low testosterone 12/31/2012 08/31/2019 Family history of GI malignancy 07/09/2012 08/31/2019 Other specified hypothyroidism 08/19/2006 08/31/2019 ADVANCE DIRECTIVE INFORMATION 2006 08/31/2019 Overview: Information given to patient. DISC DIS [id number] - bulge L3-4, L4-5 02/21/2002 08/31/2019 FAM HX-DIABETES MELLITUS - Dad 01/31/1999 08/31/2019 Mixed dyslipidemia 02/01/1998 9 Overview: Per Lipid Taxonomy. Idiopathic urticaria 020 documented as of this encounter (statuses as of 06/24/2023) Immunizations Name Administration Dates Next Due COVID-19 [...] encounter Miscellaneous Notes * Telephone Encounter - Jeniffer Alves, [facility] - 06/24/2023 9:12 AM ESTSigned Prescriptions: Disp Refills metFORMIN HCl ER 500 MG Oral Tablet Extend*180 Ta*3 Sig: TAKE 2 TABLETS BY MOUTH AT BEDTIMEAuthorizing Provider: CATHERINE GALLARDO User: JENIFFER ALVES documented in this encounter Plan of Treatment Upcoming Encounters Date Type Department Care Team (Late st Contact Info) Description 07/14/2023 8:30 AM EST Laboratory Laboratory [facility] [place] [address] [place] [id number] Danielle Lab [facility] [place] [address] 07/14/2023 9:00 AM EST Office Visit Hematology/Oncology [facility] [place] [address] [facility] [place] [address] Susie Epstein MD [address] [place] [address] 07/14/2023 9:30 AM EST Hem/Onc Treatment Hematology/Oncology Treatment, [place] [address] [place] [address] Danielle, Chair 8 Hem Onc [facility] [address] [facility] [place] [address] 08/06/2023 8:20 AM EST Office Visit Family Practice [facility] [address] [place] [phone] Catherine Gallardo DO [address] [place] [address] Scheduled Procedures Name Priority Associated Diagnoses Date/Ti [...] Additional history exists Lipid Panel 12/12/2027 12/11/2022, 12/0 12/2021, 11/26/2021, Additional history exists DTaP,Tdap,and Td [...] this encounter Medical Devices Implanted Type Area Sales Forecast Analyst Device Identifier Shelf Expiration Date Model / Serial / Lot Port Implant W/8f Poly Cath - [id number] Implanted:Qty : 1 on 04/22/2023 by Kaiden Armenta MD at [facility] Right: Chest CR BARD : PERIPHERAL VASCULAR [id number] 11/19/2024 [id number] / / [id number] documented as of this encounter Advance Directives Documents on File Type Date Recorded Patient Salvage Inspector Wood Parts Expl anation Advance Directives and Living Will 09/07/2017 LIVING WILL Latest Code Status on File Code Status Date Activated Date Inactivated Comments Full Code 03/04/2023 7:10 AM 03/04/2023 3:47 PM Question Answer Comments Discussion of Advance Directives occurred with: Not Discussed due to patient's condition Care Teams Women Specialist Relationship Specialty Start Date End Date Catherine Gallardo DO [address] [place] [address] PCP - General Family Medicine 07/18/19 documented as of this encounter
--- OUTSIDE RECORDS SUMMARY | 2023-10-08 03:59 | External Medical Summary | Summary of Care ---
Author Name Unknown Organization [facility] Address [address] [place] [address] Phone [phone] Care Team Providers Care Sash Finisher Name Role Phone Catherine Gallardo DO Primary Care Provider Reason for Visit * Reason Onset Date Comments Medication Refill 06/24/2023 Encounter Details Date Type Department Care Team (Late st Contact Info) Description 06/24/2023 Refill Family Practice [facility] [address] [facility] [place] [address] Catherine Gallardo DO [address] [facility] [address] Tinea pedis, unspecified laterality Allergies Active Allergy Reactions Criticality Noted Date Comments Sulfamethoxazole-Trimethop rim Fever,Other (Please comment) 09/13/2019 documented as of this encounter (statuses as of 06/29/2023) Medications Medication Sig Dispensed Refills Start Date [...] meds) 100 Tablet 3 06/25/2023 Active Ipratropium [place] 0.03 % Nasal Solution (Atrovent) Administer 2 Sprays into nostril in the morning and 2 Sprays before bedtime. 30 mL 3 06/24/2023 Active Omeprazole 20 MG Oral Capsule Delayed Release (PriLOSEC) Take 1 Capsule by mouth in the morning. 90 Capsule 3 02/05/2023 4 Discontinue d(Refill) Terbinafine HCl 1 % External Cream (LamISIL AT ATHLETE'S FOOT)Indications: Tinea pedis, unspecified laterality Apply to the affected area of the feet twice daily for 14-28 days. 42 g 5 02/18/2023 4 Discontinue d(Refill) Levothyroxine Sodium 88 MCG Oral Tablet (Levoxyl) Take 1 Tablet by mouth daily first thing in the morning. (at least 30 min prior to breakfast or other meds) 90 Tablet 3 03/03/2023 4 Discontinue d(Refill) documented as of this encounter (statuses as of 06/29/2023) Active Problems Problem Noted Date Diagnosed Date [...] as of this encounter (statuses as of 06/29/2023) Resolved Problems Problem Noted Date Diagnosed Date Resolved Date Family history of malignant neoplasm of prostate 03/11/2018 08/31/2019 Impaired fasting glucose 04/11/201404/2020 Metabolon Quantose IR [facility] Study*[id number] 01/20/2014 04/10/2014 Overview: METABOLON QUANTOSE IR STUDY. PROJECT: #[id number], CONSUMER EXPERIENCE CONSULTANT: Tarun Nieto MD/ Dejuan Magdaleno MD. SUMMARY: The Use of a Novel Insulin Resistance Test as a Monitoring Indicator of Glycemic Control in Prediabetics and Diabetics treated with metformin combined with lifestyle intervention. CONTACTS: During normal business hours, contact Lily Burgos RN, BSN at ; after hours University Relations Vice President via the [facility] heatset winder operator Impotence of organic origin 01/09/2014 08/31/2019 Epididymitis 01/09/2014 03/09/2017 Elevated prostate specific antigen (PSA) 01/09/2014 01/09/2014 Dry eye syndrome 12/31/2012 08/31/2019 Low testosterone 12/31/2012 08/31/2019 Family history of GI malignancy 07/09/2012 08/31/2019 Other specified hypothyroidism 08/19/2006 08/31/2019 ADVANCE DIRECTIVE INFORMATION 2006 08/31/2019 Overview: Information given to patient. DISC DIS [id number] - bulge L3-4, L4-5 02/21/2002 08/31/2019 FAM HX-DIABETES MELLITUS - Dad 01/31/1999 08/31/2019 Mixed dyslipidemia 02/01/1998 9 Overview: Per Lipid Taxonomy. Idiopathic urticaria 020 documented as of this encounter (statuses as of 06/29/2023) Immunizations Name Administration Dates Next Due COVID-19 [...] Telephone Encounter - Catherine Gallardo DO - 06/29/2023 7:56 AM EST Signed Prescriptions: Disp Refills Omeprazole 20 MG Oral Capsule Delayed Rele*100 Ca*3 Sig: Take 1 Capsule by mouth in the morning. Authorizing Provider: CATHERINE GALLARDO Ordering User: LOREN WHITE Terbinafine HCl 1 % External Cream (LamISI*42 g 5 Sig: Apply to the affected area of the feet twice daily for 14-28 days. Authorizing Provider: Alice GALLARDO Levothyroxine Sodium 88 MCG Oral Tablet (L*100 Ta*3 Sig: Take 1 Tablet by mouth daily first thing in the morning. (at least 30 min prior to breakfast or other meds) Authorizing Provider: CATHERINE GALLARDO Ordering User: LOREN WHITE * Telephone Encounter - Loren White, [facility] - 06/25/2023 7:49 PM ESTPending Prescriptions: Disp Refills Terbinafine HCl 1 % External Cream (LamISI*42 g 5 Sig: Apply to the affected area of the feet twice daily for 14-28 days. Signed Prescriptions: Disp Refills Omeprazole 20 MG Oral Capsule Delayed Rele*100 Ca*3 Sig: Take 1 Capsule by mouth in the morning. Authorizing Provider: CATHERINE GALLARDO [facility] User: LOREN WHITE Levothyroxine Sodium 88 MCG Oral Tablet (L*100 Ta*3 Sig: Take 1 Tablet by mouth daily first thing in the morning. (at least 30 min prior to breakfast or other meds) Authorizing Provider: CATHERINE GALLARDO Ordering User: LOREN WHITE * Telephone Encounter - Loren White RP - 06/25/2023 7:48 PM EST Pending Prescriptions: Disp Refills Terbinafine HCl 1 % External Cream (LamIS*42 g 5 Sig: Apply to the affected area of the feet twice daily for 14-28 days. Last Visit: 03/24/2023 (in office), Visit date not found (telemedicine) Next Visit: 08/06/2023 If no future appointments scheduled, and last appointment is greater than a year ago, please schedule patient for a follow-up appointment Last date the medication was ordered: 02/18/23 Pharmacy: [facility] Is this request for a controlled substance? No Urine Drug Screen:No results found for this or any previous visit. Patient Phone Numbers Labs: Lab Results Component Value Date/Time CREAT 1.1 06/23/2023 09:46 AM CREAT 1.0 03/14/2020 08:17 AM POTASSIUM 4.7 06/23/2023 09:46 AM POTASSIUM 4.2 03/14/2020 08:17 AM TSH 2.36 06/23/2023 09:46 AM TSH 1.09 10/04/2018 02:32 PM LDLCALC 78 12/11/2022 08:39 AM LDLCALC 81 03/14/2020 08:17 AM LDLDIRECT NOT APPLICABLE 03/14/2020 08:17 AM LDLDIRECT 97 03/11/2018 09:19 AM ALT 15 06/23/2023 09:46 AM ALT 32 03/14/2020 08:17 AM HGBA1C 6.3 (H) 05/12/2023 09:45 AM HGBA1C 6.5 (H) 03/14/2020 08:17 AM documented in this encounter Plan of Treatment Upcoming Encounters Date Type Department Care Team (Late st Contact Info) Description 07/14/2023 8:30 AM EST Laboratory Laboratory [facility] [place] [address] [place] [id number] Danielle, Lab [address] [facility] [place] [address] 07/14/2023 9:00 AM EST Office Visit Hematology/Oncology [facility] [place] [address] [place] [address] Susie Epstein MD [address] [place] [address] 07/14/2023 9:30 AM EST Hem/Onc Treatment Hematology/Oncology Treatment, [place] [address] [place] [address] Danielle, Chair 8 Hem Onc [facility] [address] [place] [address] 08/06/2023 8:20 AM EST Office Visit Family Practice [facility] [address] [place] [address] Catherine Gallardo DO [address] [place] [address] Scheduled Procedures Name Priority Associated Diagnoses Date/Ti me COLONOSCOPY FLEXIBLE PROXIMAL DIAGNOSTIC Recall History of colon polyps ESOPHAGOGASTRODUODENOSCOPY ( EGD), FLEXIBLE, TRANSORAL, DIAGNOSTIC Recall Lipoma of other specified sites Health Maintenance Due Date Last Done Comments Hepatitis B (1 of 3 - Risk 3-dose series) 2011 HbA1c 11/10/2023 05/12/2023, 06/07/2022, 05/28/2022, Additional history exists Diabetic Eye Exam [...] this encounter Medical Devices Implanted Type Area Asphalt Paver Operator Device Identifier Shelf Expiration Date Model / Serial / Lot Port Implant W/8f Poly Cath - [id number] Implanted:Qty : 1 on 04/22/2023 by Kaiden Armenta MD at OR [facility] Right: Chest CR BARD : PERIPHERAL VASCULAR [id number] 11/19/2024 [id number] / / [id number] documented as of this encounter Visit Diagnoses Diagnosis Tinea pedis, unspecified laterality documented in this encounter Advance Directives Documents on File Type Date Recorded Patient Innovation Analyst Expl anation Advance Directives and Living Will 09/07/2017 LIVING WILL Latest Code Status on File Code Status Date Activated Date Inactivated Comments Full Code 03/04/2023 7:10 AM 03/04/2023 3:47 PM Question Answer Comments Discussion of Advance Directives occurred with: Not Discussed due to patient's condition Care Teams Sash Finisher Relationship Specialty Start Date End Date Catherine Gallardo DO [address] [place] [address] PCP - General Family Medicine 07/18/19 documented as of this encounter
--- OUTSIDE RECORDS SUMMARY | 2023-10-08 03:59 | External Medical Summary | Summary of Care ---
Author Name Unknown Organization [facility] Address [address] [place] [address] Phone [phone] Care Team Providers Care Criminal Profiler Name Role Phone Carson Gallardo Primary Care Provider Reason for Visit * Reason Onset Date Comments Insurance 06/16/2023 ac Encounter Details Date Type Department Care Team (Late st Contact Info) Description 06/16/2023 Telephone Hematology/Oncology Treatment, [place] [address] [place] [address] Susie Epstein MD [address] [place] [address] Insurance (ac) Allergies Active Allergy Reactions Criticality [...] BEDTIME 90 Tablet 3 08/13/2022 Active Ipratropium [place] 0.03 % Nasal Solution (Atrovent) ADMINISTER 2 [...] Tablet Extended Release 24 Hour (toPROL XL)Indications:Typi kenneid atrial flutter (HCC),HTN, goal below 140/90 TAKE [...] fasting glucose 04/11/201404/2020 Metabolon Quantose IR Resear Study*[id number] 01/20/2014 04/10/2014 Overview: METABOLON QUANTOSE IR STUDY. PROJECT: #[id number], COMPLEX COMMERCIAL LITIGATION PARALEGAL: Tarun Nieto MD/ Dejuan Magdaleno MD. SUMMARY: The Use of a Novel Insulin Resistance Test as a Monitoring Indicator of Glycemic Control in Prediabetics and Diabetics treated with metformin combined with lifestyle intervention. CONTACTS: During normal business hours, contact Lily Burgos RN, BSN at ; after hours Heart Coordinator via the [facility] waxing machine operator Impotence of organic origin 01/09/2014 08/31/2019 Epididymitis 01/09/2014 03/09/2017 Elevated prostate specific antigen (PSA) 01/09/2014 01/09/2014 Dry eye syndrome 12/31/2012 08/31/2019 Low testosterone 12/31/2012 08/31/2019 Family history of GI malignancy 07/09/2012 08/31/2019 Other specified hypothyroidism 08/19/2006 08/31/2019 ADVANCE DIRECTIVE INFORMATION 2006 08/31/2019 Overview: Information given to patient. DISC DIS [id number] - bulge L3-4, L4-5 02/21/2002 08/31/2019 FAM [...] - 06/23/2023 9:59 AM EST Spoke to Hernan hannon is approved, waiting for official fax to [...] AM EST Patients insurance is changing to [employer], 06/22/23. Scheduled for labs/ keytruda 06/23/23. Called patient. He states that he does have his new insurance card, will stop by a [place] officeto have it scanned in. ID # [id number]. Precert: FYI for when insurance becomes active 06/22/23. documented in this encounter Plan of Treatment Upcoming Encounters Date Type Department Care Team (Late st Contact Info) Description 06/23/2023 10:30 AM EST Hem/Onc Treatment Hematology/Oncology Treatment, [place] [address] [place] [address] Danielle, Chair 3 Hem Onc [address] [place] [address] Arrived 07/14/2023 8:30 AM EST Laboratory Laboratory [facility] Danielle [place] [address] [place] [id number] Danielle, Lab Scen[address] [facility] [place] [address] 07/14/2023 9:00 AM EST Office Visit Hematology/Oncology [facility] [place] [address] [place] [address] Susie Epstein MD [address] [place] [address] 07/14/2023 9:30 AM EST Hem/Onc Treatment Hematology/Oncology Treatment, [place] [address] [place] [address] Danielle, Chair 8 Hem Onc [address] [place] [address] 08/06/2023 8:20 AM EST Office Visit Family [facility] [address] [facility] [place] [address] Carson Gallardo, [address] [place] [address] Scheduled Procedures Name Priority Associated Diagnoses Date/Ti [...] this encounter Medical Devices Implanted Type Area Heavy Machinery Operator Device Identifier Shelf Expiration Date Model / Serial / Lot Port Implant W/8f Poly Cath - [id number] Implanted:Qty : 1 on 04/22/2023 by Kaiden Armenta MD at OR [facility] Right: Chest CR BARD : PERIPHERAL VASCULAR [id number] 11/19/2024 [id number] / / [id number] documented as of this encounter Advance Directives Documents on File Type Date Recorded Patient Superintendent Institution Expl anation Advance Directives and Living Will 09/07/2017 LIVING WILL Latest Code Status on File Code Status Date Activated Date Inactivated Comments Full Code 03/04/2023 7:10 AM 03/04/2023 3:47 PM Question Answer Comments Discussion of Advance Directives occurred with: Not Discussed due to patient's condition Care Teams Criminal Profiler Relationship Specialty Start Date End Date Carson Gallardo DO [address] [place] [address] PCP - General Family Medicine 07/18/19 documented as of this encounter
--- OUTSIDE RECORDS SUMMARY | 2023-10-08 03:59 | External Medical Summary | Summary of Care ---
Author Name Unknown Organization [facility] Address [address] [place] [address] Phone [phone] Care Team Providers Care Justice Court Judge Name Role Phone Catherine Gallardo DO Primary Care Provider Reason for Visit * Reason Onset Date Comments Medication Refill 06/24/2023 Encounter Details Date Type Department Care Team (Late st Contact Info) Description 06/24/2023 Refill Family Practice [facility] [address] [facility] [place] [address] Carey Gallardo MD [address] [place], [place] [address] [address] Allergies Active Allergy Reactions Criticality Noted Date Comments Sulfamethoxazole-Trimethop rim Fever,Other (Please comment) 09/13/2019 documented as of this encounter (statuses as of 06/25/2023) Medications Medication Sig Dispensed Refills Start Date [...] every 6 hours as needed. 0 Active Omeprazole 20 MG Oral Capsule Delayed [...] other meds) 90 Tablet 3 03/03/2023 Active Lidocaine-Priloca ine 2.5-2.5 % External Cream [...] at bedtime. 200 Tablet 3 06/25/2023 Active Ipratropium [place] 0.03 % Nasal Solution (Atrovent) Administer 2 Sprays into nostril in the morning and 2 Sprays before bedtime. 30 mL 3 06/24/2023 Active Atorvastatin Calcium 80 MG Oral Tablet (Lipitor) TAKE 1 TABLET BY MOUTH AT BEDTIME 90 Tablet 3 08/13/2022 4 Discontinue d(Refill) metFORMIN HCl ER 500 MG Oral Tablet Extended Release 24 Hour (Glucophage XR) TAKE 2 TABLETS BY MOUTH AT BEDTIME 180 Tablet 3 06/24/2023 4 Discontinue d(Refill) documented as of this encounter (statuses as of 06/25/2023) Active Problems Problem Noted Date Diagnosed Date [...] as of this encounter (statuses as of 06/25/2023) Resolved Problems Problem Noted Date Diagnosed Date Resolved Date Family history of malignant neoplasm of prostate 03/11/2018 08/31/2019 Impaired fasting glucose 04/11/201404/2020 Metabolon Quantose IR [facility] Study*[id number] 01/20/2014 04/10/2014 Overview: METABOLON QUANTOSE IR STUDY. PROJECT: #[id number], TRAINING ENGINEER: Tarun Nieto MD/ Dejuan Magdaleno MD. SUMMARY: The Use of a Novel Insulin Resistance Test as a Monitoring Indicator of Glycemic Control in Prediabetics and Diabetics treated with metformin combined with lifestyle intervention. CONTACTS: During normal business hours, contact Lily Burgos RN, BSN at ; after hours Photofinishing Laboratory Worker via the [facility] inserting operator Impotence of organic origin 01/09/2014 08/31/2019 Epididymitis 01/09/2014 03/09/2017 Elevated prostate specific antigen (PSA) 01/09/2014 01/09/2014 Dry eye syndrome 12/31/2012 08/31/2019 Low testosterone 12/31/2012 08/31/2019 Family history of GI malignancy 07/09/2012 08/31/2019 Other specified hypothyroidism 08/19/2006 08/31/2019 ADVANCE DIRECTIVE INFORMATION 2006 08/31/2019 Overview: Information given to patient. DISC DIS [id number] - bulge L3-4, L4-5 02/21/2002 08/31/2019 FAM HX-DIABETES MELLITUS - Dad 01/31/1999 08/31/2019 Mixed dyslipidemia 02/01/1998 9 Overview: Per Lipid Taxonomy. Idiopathic urticaria 020 documented as of this encounter (statuses as of 06/25/2023) Immunizations Name Administration Dates Next Due COVID-19 [...] encounter Miscellaneous Notes * Telephone Encounter - David Nails [facility] - 06/25/2023 10:33 AM EST Signed Prescriptions: Disp Refills Atorvastatin Calcium 80 MG Oral Tablet (Li*100 Ta*3 Sig: Take 1 Tablet by mouth at bedtime.Authorizing Provider: CATHERINE GALLARDO User: DAVID NAILS metFORMIN HCl ER 500 MG Oral Tablet Extend*200 Ta*3 Sig: Take 2 Tablets by mouth at bedtime. Authorizing Provider: CATHERINE GALLARDO User: DAVID NAILS documented in this encounter Plan of Treatment Upcoming Encounters Date Type Department Care Team (Late st Contact Info) Description 07/14/2023 8:30 AM EST Laboratory Laboratory [facility] [address] [place] [phone] Danielle Lab [place] [address] [address] [place] [address] 07/14/2023 9:00 AM EST Office Visit Hematology/Oncology [facility] [place] [address] [place] [address] Susie Epstein MD [address] [place] [address] 07/14/2023 9:30 AM EST Hem/Onc Treatment Hematology/Oncology Treatment, [place] [address] [place] [address] Danielle Chair 8 Hem Onc [facility] [address] [place] [address] 08/06/2023 8:20 AM EST Office Visit Family [facility] [address] [facility] [place] [address] Catherine Gallardo, DO [address] [place] [address] Scheduled Procedures Name Priority Associated Diagnoses Date/Ti [...] this encounter Medical Devices Implanted Type Area Supervisor Pig Machine Device Identifier Shelf Expiration Date Model / Serial / Lot Port Implant W/8f Poly Cath - [id number] Implanted:Qty : 1 on 04/22/2023 by Kaiden Armenta MD at [facility] Right: Chest CR BARD : PERIPHERAL VASCULAR [id number] 11/19/2024 [id number] / / [id number] documented as of this encounter Advance Directives Documents on File Type Date Recorded Patient Mechanical Engineering Coop Expl anation Advance Directives and Living Will 09/07/2017 LIVING WILL Latest Code Status on File Code Status Date Activated Date Inactivated Comments Full Code 03/04/2023 7:10 AM 03/04/2023 3:47 PM Question Answer Comments Discussion of Advance Directives occurred with: Not Discussed due to patient's condition Care Teams Justice Court Judge Relationship Specialty Start Date End Date Catherine Gallardo DO [address] [place] [address] PCP - General Family Medicine 07/18/19 documented as of this encounter
--- OUTSIDE RECORDS SUMMARY | 2023-10-08 03:59 | External Medical Summary | Summary of Care ---
Author Name Unknown Organization [facility] Address [address] [place] [address] Phone [phone] Care Team Providers Care Machine Stone Polisher Name Role Phone Carson Gallardo Primary Care Provider Reason for Visit * Reason Onset Date Comments Medication Refill 06/24/2023 Encounter Details Date Type Department Care Team (Late st Contact Info) Description 06/24/2023 Refill Cardiology, [facility] [address] [facility] [place] [address] Angely Cowan DO [address] [facility] [id number] HTN, goal below 140/90*; Typical atrial flutter (HCC) Allergies Active Allergy Reactions Criticality Noted [...] AT BEDTIME 90 Tablet 3 08/13/2022 Active Omeprazole 20 MG Oral Capsule Delayed [...] TO ACCESSING. 30 g 1 05/05/2023 Active metFORMIN HCl ER 500 MG Oral Tablet Extended Release 24 Hour (Glucophage XR) TAKE 2 TABLETS BY MOUTH AT BEDTIME 180 Tablet 3 06/24/2023 Active Lisinopril 2.5 MG Oral Tablet (Prinivil)Indicat [...] 1 Tablet by mouth in the morning. In the morning.. 90 Tablet 3 06/25/2023 Active Ipratropium [place] 0.03 % Nasal Solution (Atrovent) Administer 2 Sprays into nostril in the morning and 2 Sprays before bedtime. 30 mL 3 06/24/2023 Active Lisinopril 2.5 MG Oral Tablet (Prinivil) Take 1 Tablet by mouth in the morning. 30 Tablet 11 04/13/2023 4 Discontinue d(Refill) Apixaban 5 MG Oral Tablet (Eliquis)Indicati ons:Typical atrial flutter (HCC),HTN, goal below 140/90 Take 1 Tablet by mouth in the morning and 1 Tablet before bedtime. 180 Tablet 3 04/30/2023 4 Discontinue d(Refill) Metoprolol Succinate ER 25 MG Oral Tablet Extended Release 24 Hour (toPROL XL)Indications:Ty pical atrial flutter (HCC),HTN, goal below 140/90 TAKE 1 TABLET BY MOUTH EVERY MORNING 90 Tablet 3 05/11/2023 4 Discontinue d(Refill) documented as of this [...] fasting glucose 04/11/201404/2020 Metabolon Quantose IR Gianluca Study*[id number] 01/20/2014 04/10/2014 Overview: METABOLON QUANTOSE IR STUDY. PROJECT: #[id number], PUG MILL OPERATOR: Tarun Nieto MD/ Dejuan Magdaleno MD. SUMMARY: The Use of a Novel Insulin Resistance Test as a Monitoring Indicator of Glycemic Control in Prediabetics and Diabetics treated with metformin combined with lifestyle intervention. CONTACTS: During normal business hours, contact Lily Burgos RN, BSN at ; after hours Forest Pathology Teacher via the [facility] lehr operator Impotence of organic origin 01/09/2014 08/31/2019 Epididymitis 01/09/2014 03/09/2017 Elevated prostate specific antigen (PSA) 01/09/2014 01/09/2014 Dry eye syndrome 12/31/2012 08/31/2019 Low testosterone 12/31/2012 08/31/2019 Family history of GI malignancy 07/09/2012 08/31/2019 Other specified hypothyroidism 08/19/2006 08/31/2019 ADVANCE DIRECTIVE INFORMATION 2006 08/31/2019 Overview: Information given to patient. DISC DIS [id number] - bulge L3-4, L4-5 02/21/2002 08/31/2019 FAM [...] encounter Miscellaneous Notes * Telephone Encounter - Angely Cowan DO - 06/25/2023 10:02 AM ESTSigned Prescriptions: Disp Refills Lisinopril 2.5 MG Oral Tablet (Prinivil) 30 Tab*11 Sig: Take 1 Tablet by mouth in the morning. Authorizing Provider: ANGELY COWAN Apixaban 5 MG Oral Tablet (Eliquis) 180 Ta*3 Sig: Take 1 Tablet by mouth in the morning and 1 Tablet before bedtime. Authorizing Provider: ANGELY COWAN Metoprolol Succinate ER 25 MG Oral Tablet *90 Tab*3 Sig: Take 1 Tablet by mouth in the morning. In the morning.. Authorizing Provider: ANGELY COWAN * Telephone Encounter - Regina Mantilla LPN - 06/24/2023 1:03 PM ESTPending Prescriptions: Disp Refills Lisinopril 2.5 MG Oral Tablet (Prinivil) 30 Tab*11 Sig: Take 1 Tablet by mouth in the morning. Apixaban 5 MG Oral Tablet (Eliquis) 180 Ta*3 Sig: Take 1 Tablet by mouth in the morning and 1 Tablet before bedtime. Metoprolol Succinate ER 25 MG Oral Tablet *90 Tab*3 Sig: Take 1 Tablet by mouth in the morning. In the morning.. * Telephone Encounter - Regina Mantilla LPN - 06/24/2023 1:00 PM EST REQUESTING SENT TO [facility] Did you pend patient's preferred pharmacy and medication before forwarding?yes Pharmacy: [facility] Pending Prescriptions: Disp Refills Lisinopril 2.5 MG Oral Tablet (Prinivil) 30 Tab*11 Sig: Take 1 Tablet by mouth in the morning. Apixaban 5 MG Oral Tablet (Eliquis) 180 Ta*3 Sig: Take 1 Tablet by mouth in the morning and 1 Tablet before bedtime. Metoprolol Succinate ER 25 MG Oral Tablet*90 Tab*3 Sig: Take 1 Tablet by mouth in the morning. In the morning.. Last Visit: 04/13/2023 (in office), Visit date not found (telemedicine) Next Visit: Visit date not found If no future appointments scheduled, and last appointment is greater than a year ago, please schedule patient for a follow-up appointment Last date the medication was ordered: April and March 2023 - REQUESTING SENT TO [facility] Is this request for a controlled substance? NO Urine Drug Screen:No results found for this [...] Description 07/14/2023 8:30 AM EST Laboratory Laboratory [facility] [address] [place] [phone] Danielle, Lab [facility] [address] [facility] [place] [address] 07/14/2023 9:00 AM EST Office Visit Hematology/Oncology [facility] [place] [address] [place] [address] Susie Epstein MD [address] [place] [address] 07/14/2023 9:30 AM EST Hem/Onc Treatment Hematology/Oncology Treatment, [place] [address] [place] [address] Danielle, Chair 8 Hem [facility]c [facility] [address] [place] [address] 08/06/2023 8:20 AM EST Office Visit Family Practice [facility] [address] [place] [address] Carson Gallardo DO [address] [place] [address] Scheduled Procedures Name Priority Associated Diagnoses Date/Ti [...] this encounter Medical Devices Implanted Type Area Ingot Car Operator Device Identifier Shelf Expiration Date Model / Serial / Lot Port Implant W/8f Poly Cath - [id number] Implanted:Qty : 1 on 04/22/2023 by Kaiden Armenta MD at [facility] Right: Chest CR BARD : PERIPHERAL VASCULAR [id number] 11/19/2024 [id number] / / [id number] documented as of this encounter Visit Diagnoses Diagnosis HTN, goal below 140/90- Primary Unspecified essential hypertension Typical atrial flutter (HCC) Atrial flutter documented in this encounter Advance Directives Documents on File Type Date Recorded Patient Balancing Machine Set Up Worker Expl anation Advance Directives and Living Will 09/07/2017 LIVING WILL Latest Code Status on File Code Status Date Activated Date Inactivated Comments Full Code 03/04/2023 7:10 AM 03/04/2023 3:47 PM Question Answer Comments Discussion of Advance Directives occurred with: Not Discussed due to patient's condition Care Teams Machine Stone Polisher Relationship Specialty Start Date End Date Carson Gallardo DO [address] [place] [address] PCP - General Family Medicine 07/18/19 documented as of this encounter
--- OUTSIDE RECORDS SUMMARY | 2023-10-08 04:00 | External Medical Summary | Summary of Care ---
Author Name Unknown Organization [facility] Address [address] [place] [address] Phone [phone] Care Team Providers Care Photograph Inspector Name Role Phone Carson Gallardo Primary Care Provider Reason for Visit * Reason Onset Date Comments Insurance 06/16/2023 ac Encounter Details Date Type Department Care Team (Late st Contact Info) Description 06/16/2023 Telephone Hematology/Oncology Treatment, [place] [address] [place] [address] Susie Epstein MD [address] [place] [address] Insurance (ac) Allergies Active Allergy Reactions Criticality [...] BEDTIME 90 Tablet 3 08/13/2022 Active Ipratropium [place] 0.03 % Nasal Solution (Atrovent) ADMINISTER 2 [...] fasting glucose 04/11/201404/2020 Metabolon Quantose IR Resear Study*[id number] 01/20/2014 04/10/2014 Overview: METABOLON QUANTOSE IR STUDY. PROJECT: #[id number], GROUTER HELPER: Tarun Nieto MD/ Dejuan Magdaleno MD. SUMMARY: The Use of a Novel Insulin Resistance Test as a Monitoring Indicator of Glycemic Control in Prediabetics and Diabetics treated with metformin combined with lifestyle intervention. CONTACTS: During normal business hours, contact Lily Burgos RN, BSN at ; after hours Box Spinner via the [facility] pony ride operator Impotence of organic origin 01/09/2014 08/31/2019 Epididymitis 01/09/2014 03/09/2017 Elevated prostate specific antigen (PSA) 01/09/2014 01/09/2014 Dry eye syndrome 12/31/2012 08/31/2019 Low testosterone 12/31/2012 08/31/2019 Family history of GI malignancy 07/09/2012 08/31/2019 Other specified hypothyroidism 08/19/2006 08/31/2019 ADVANCE DIRECTIVE INFORMATION 2006 08/31/2019 Overview: Information given to patient. DISC DIS [id number] - bulge L3-4, L4-5 02/21/2002 08/31/2019 FAM [...] encounter Miscellaneous Notes * Telephone Encounter - Marcella Jiang OSA - 06/16/2023 12:41 PM EST Can't send for auth until 06/23/23 * Telephone Encounter - Anjana Soto RN - 06/16/2023 11:33 AM EST Patients insurance is changing to [employer] 06/22/23. Scheduled for labs/ keytruda 06/23/23. Called patient. He states that he does have his new insurance card, will stop by a [employer] officeto have it scanned in. ID # [id number]. Precert: FYI for when insurance becomes active 06/22/23. documented in this encounter Plan of Treatment Upcoming Encounters Date Type Department Care Team (Late st Contact Info) Description 06/23/2023 9:30 AM EST Laboratory Laboratory [facility] [place] [address] [place] [phone] Danielle, Lab [address] [place] [address] 06/23/2023 10:30 AM EST Hem/Onc Treatment Hematology/Oncology Treatment, [place] 200 [facility] [place] [address] Danielle, Chair 3 Hem Onc [address] [place] [address] 07/14/2023 8:30 AM EST Laboratory Laboratory [facility] [place]le [place] [address] [place] [phone] Danielle, Lab [address] [facility] [place] [address] 07/14/2023 9:00 AM EST Office Visit Hematology/Oncology [facility] Danielle [place] [address] [place] [address] Susie Epstein MD [address] [place] [address] 07/14/2023 9:30 AM EST Hem/Onc Treatment [facility] [place] [facility] [address] Danielle, Chair 8 Hem Onc [address] [place] [address] 08/06/2023 8:20 AM EST Office Visit Family [facility] [address] [place] [address] Carson Gallardo, [address] [place] [address] Scheduled Procedures Name Priority Associated Diagnoses Date/Ti [...] this encounter Medical Devices Implanted Type Area Contact Acid Plant Operator Helper Device Identifier Shelf Expiration Date Model / Serial / Lot Port Implant W/8f Poly Cath - [id number] Implanted:Qty : 1 on 04/22/2023 by Kaiden Armenta MD at [facility] Right: Chest CR BARD : PERIPHERAL VASCULAR [id number] 11/19/2024 [id number] / / [id number] documented as of this encounter Advance Directives Documents on File Type Date Recorded Patient Glass Inserter Expl anation Advance Directives and Living Will 09/07/2017 LIVING WILL Latest Code Status on File Code Status Date Activated Date Inactivated Comments Full Code 03/04/2023 7:10 AM 03/04/2023 3:47 PM Question Answer Comments Discussion of Advance Directives occurred with: Not Discussed due to patient's condition Care Teams Photograph Inspector Relationship Specialty Start Date End Date Carson Gallardo DO [address] [place] [address] PCP - General Family Medicine 07/18/19 documented as of this encounter
--- OUTSIDE RECORDS SUMMARY | 2023-10-08 04:00 | External Medical Summary ---
Author Name Unknown Address Unknown Organization K09:[facility] [address] [place] [address] Laboratory Report Ordering Provider Test Date Status CHRIS MCCRAY 06/23/2023 09:46:32 Final Observation Date Value Abnormality Reference (Units ) Status BUN 06/23/2023 09:46:32 12 6-20 (mg/dL) Final Creatinine 06/23/2023 09:46:32 1.1 0.6-1.2 (mg/dL) Final Glomerular filtration rate/1.73 sq M.predicted [Volume Rate/Area] in Serum, Plasma or Blood by Creatinine-based formula (CKD-EPI) 06/23/2023 09:46:32 75 >=60 (mL/min) Final eGFR is calculated based on the CKD-EPI 2020 equation SODIUM 06/23/2023 09:46:32 135 135-146 (m mol/L) Final Potassium 06/23/2023 09:46:32 4.7 3.5-5.1 (m mol/L) Final Cl 06/23/2023 09:46:32 99 98-107 (mm ol/L) Final CO2 06/23/2023 09:46:32 27 22-32 (mmo l/L) Final Anion gap 06/23/2023 09:46:32 9 7-15 (mmol /L) Final Glucose 06/23/2023 09:46:32 155 Above high normal 70 -120 (mg/dL) Final Albumin 06/23/2023 09:46:32 4.6 3.8-5.0 (g /dL) Final AST (Aspartate aminotransferase) 06/23/2023 09:46:32 20 10-50 (U/L) Fin al Alk Phos 06/23/2023 09:46:32 117 35-130 (U/ L) Final Bilirubin, Total 06/23/2023 09:46:32 0.9 <=1 .2 (mg/dL) Final Calcium 06/23/2023 09:46:32 10.0 8.4-10.2 ( mg/dL) Final Protein 06/23/2023 09:46:32 7.9 6.0-8.3 (g /dL) Final ALT (Alanine aminotransferase) 06/23/2023 09:46:32 15 10-50 (U/L) Rodrick crocker Performing Location [facility] [address] [place] [address]
--- OUTSIDE RECORDS SUMMARY | 2023-10-08 04:00 | External Medical Summary | Summary of Care ---
Author Name Unknown Organization [facility] Address [address] [place] [address] Phone [phone] Care Team Providers Care Electronic Device Monitor Name Role Phone Carson Gallardo Primary Care Provider Reason for Visit * Reason Onset Date Comments Insurance 06/16/2023 ac Encounter Details Date Type Department Care Team (Late st Contact Info) Description 06/16/2023 Telephone Hematology/Oncology Treatment, [place] [address] [place] [address] Susie Epstein MD 200 [place] [address] Insurance (ac) Allergies Active Allergy Reactions Criticality [...] BEDTIME 90 Tablet 3 08/13/2022 Active Ipratropium [place] 0.03 % Nasal Solution (Atrovent) ADMINISTER 2 [...] fasting glucose 04/11/201404/2020 Metabolon Quantose IR Resear Study*[id number] 01/20/2014 04/10/2014 Overview: METABOLON QUANTOSE IR STUDY. PROJECT: #[id number], WEB KNITTER: Tarun Nieto MD/ Dejuan Magdaleno MD. SUMMARY: The Use of a Novel Insulin Resistance Test as a Monitoring Indicator of Glycemic Control in Prediabetics and Diabetics treated with metformin combined with lifestyle intervention. CONTACTS: During normal business hours, contact Lily Burgos RN, BSN at ; after hours Director Of Reimbursement via the [facility] railway switch operator Impotence of organic origin 01/09/2014 08/31/2019 Epididymitis 01/09/2014 03/09/2017 Elevated prostate specific antigen (PSA) 01/09/2014 01/09/2014 Dry eye syndrome 12/31/2012 08/31/2019 Low testosterone 12/31/2012 08/31/2019 Family history of GI malignancy 07/09/2012 08/31/2019 Other specified hypothyroidism 08/19/2006 08/31/2019 ADVANCE DIRECTIVE INFORMATION 2006 08/31/2019 Overview: Information given to patient. DISC DIS RAY-URS-[id number] - bulge L3-4, L4-5 02/21/2002 08/31/2019 FAM [...] work drawn. * Telephone Encounter - Marcella Jinag OSA - 06/16/2023 12:41 PM EST Can't send for auth until 06/23/23 * Telephone Encounter - Anjana Soto RN - 06/16/2023 11:33 AM EST Patients insurance is changing to [employer] 06/22/23. Scheduled for labs/ keytruda 06/23/23. Called patient. He states that he does have his new insurance card, will stop by a [employer] officeto have it scanned in. ID # [id number]. Precert: FYI for when insurance becomes active 06/22/23. documented in this encounter Plan of Treatment Upcoming Encounters Date Type Department Care Team (Late st Contact Info) Description 06/23/2023 9:30 AM EST Laboratory Laboratory [facility] [place] [address] [place] [phone] Danielle Lab [place] [address] [place] [address] [address] 06/23/2023 10:30 AM EST Hem/Onc Treatment Hematology/Oncology Treatment, [place] [address] [place] [address] Danielle, Chair 3 Hem Onc [place] [address] [place] [address] [address] 07/14/2023 8:30 AM EST Laboratory Laboratory [facility] Danielle [place] [address] [place] [phone] Danielle Lab [place] [address] [place] [address] [address] 07/14/2023 9:00 AM EST Office Visit Hematology/Oncology [place] [address] [place] [address] [address] Susie Epstein MD [address] [place] [address] 07/14/2023 9:30 AM EST Hem/Onc Treatment Hematology/Oncology Treatment, [place] [address] [place] [address] [place], Chair 8 Hem Onc [address] [place] [address] 08/06/2023 8:20 AM EST Office Visit [facility] [address] [place] [address] Carson Gallardo, [address] [place] [address] Scheduled Procedures Name Priority Associated Diagnoses Date/Ti [...] this encounter Medical Devices Implanted Type Area Analog Design Engineer Device Identifier Shelf Expiration Date Model / Serial / Lot Port Implant W/8f Poly Cath - [id number] Implanted:Qty : 1 on 04/22/2023 by Kaiden Armenta MD at [facility] Right: Chest CR BARD : PERIPHERAL VASCULAR [id number] 11/19/2024 [id number] / / [id number] documented as of this encounter Advance Directives Documents on File Type Date Recorded Patient Jawbone Puller Expl anation Advance Directives and Living Will 09/07/2017 LIVING WILL Latest Code Status on File Code Status Date Activated Date Inactivated Comments Full Code 03/04/2023 7:10 AM 03/04/2023 3:47 PM Question Answer Comments Discussion of Advance Directives occurred with: Not Discussed due to patient's condition Care Teams Electronic Device Monitor Relationship Specialty Start Date End Date Carson Gallardo DO [address] [facility] [place] [address] PCP - General Family Medicine 07/18/19 documented as of this encounter
--- OUTSIDE RECORDS SUMMARY | 2023-10-08 04:00 | External Medical Summary ---
Author Name Unknown Address Unknown Organization K09:[facility] [place] [place] [address] Laboratory Report Ordering Provider Test Date Status CHRIS MCCRAY 06/23/2023 09:46:32 Final Observation Date Value Abnormality Reference (Units ) Status SYNC LEUKOCYTES IN BLOOD BY AUTOMATED COUNT 06/23/2023 09:46:32 6.15 4.00-10.80 (K/uL) Final Segs 06/23/2023 09:46:32 50.4 40.0-75.0 (%) Final Lymphs % 06/23/2023 09:46:32 36.4 18.0-42.0 (%) Final Monos 06/23/2023 09:46:32 13.0 Above high normal 1.0-11.0 (%) Final Eosinophils 06/23/2023 09:46:32 0.0 0.0-6.0 (%) Final Basos 06/23/2023 09:46:32 0.2 0.0-2.0 (%) Final Absolute Segs 06/23/2023 09:46:32 3.10 1.80-7.70 (K/uL) Final Lymphs, absolute 06/23/2023 09:46:32 2.24 1.00-4.80 (K/ul) Final Monos, Abs 06/23/2023 09:46:32 0.80 0.00-1.10 (K/uL) Final Eos, Abs 06/23/2023 09:46:32 0.00 0.00-0.70 (K/uL) Final Basos, Abs 06/23/2023 09:46:32 0.01 0.00-0.20 (K/uL) Final Performing Location [facility] [address] [place] [address]
--- OUTSIDE RECORDS SUMMARY | 2023-10-08 04:00 | External Medical Summary | Summary of Care ---
Author Name Unknown Organization [facility] Address [address] [place] [address] Phone [phone] Care Team Providers Care Material Handler Loader Name Role Phone Carson Gallardo Primary Care Provider Reason for Visit * Reason Onset Date Comments Insurance 06/16/2023 ac Encounter Details Date Type Department Care Team (Late st Contact Info) Description 06/16/2023 Telephone Hematology/Oncology Treatment, [place] [address] [place] [address] Susie Epstein MD [address] [place] [address] Insurance (ac) Allergies Active Allergy Reactions Criticality [...] BEDTIME 90 Tablet 3 08/13/2022 Active Ipratropium [place] 0.03 % Nasal Solution (Atrovent) ADMINISTER 2 [...] fasting glucose 04/11/201404/2020 Metabolon Quantose IR Resear Study*[id number] 01/20/2014 04/10/2014 Overview: METABOLON QUANTOSE IR STUDY. PROJECT: #[id number], PSYCHOLOGICAL ANTHROPOLOGIST: Tarun Nieto MD/ Dejuan Magdaleno MD. SUMMARY: The Use of a Novel Insulin Resistance Test as a Monitoring Indicator of Glycemic Control in Prediabetics and Diabetics treated with metformin combined with lifestyle intervention. CONTACTS: During normal business hours, contact Lily Burgos RN, BSN at ; after hours Senior It Project Manager via the [facility] holiday detector operator Impotence of organic origin 01/09/2014 08/31/2019 Epididymitis 01/09/2014 03/09/2017 Elevated prostate specific antigen (PSA) 01/09/2014 01/09/2014 Dry eye syndrome 12/31/2012 08/31/2019 Low testosterone 12/31/2012 08/31/2019 Family history of GI malignancy 07/09/2012 08/31/2019 Other specified hypothyroidism 08/19/2006 08/31/2019 ADVANCE DIRECTIVE INFORMATION 2006 08/31/2019 Overview: Information given to patient. DISC DIS PED-[id number] - bulge L3-4, L4-5 02/21/2002 08/31/2019 FAM [...] AM EST Patients insurance is changing to [employer] 06/22/23. Scheduled for labs/ keytruda 06/23/23. Called patient. He states that he does have his new insurance card, will stop by a [employer] officeto have it scanned in. ID # [id number]. Precert: FYI for when insurance becomes active 06/22/23. documented in this encounter Plan of Treatment Upcoming Encounters Date Type Department Care Team (Late st Contact Info) Description 06/23/2023 9:30 AM EST Laboratory Laboratory [facility] [place] [address] [place] [phone] Danielle, Lab [address] [place] [address] 06/23/2023 10:30 AM EST Hem/Onc Treatment Hematology/Oncology Treatment, [place] 200 [facility] [place] [address] Danielle, Chair 3 Hem Onc [address] [place] [address] 07/14/2023 8:30 AM EST Laboratory Laboratory [facility] [place] [address] [place] [phone] Danielle, Lab [address] [facility] [place] [address] 07/14/2023 9:00 AM EST Office Visit Hematology/Oncology [facility] Danielle [place] [address] [place] [address] Susie Epstein MD [address] [place] [address] 07/14/2023 9:30 AM EST Hem/Onc Treatment [facility] [place] [facility] [address] Danielle, Chair 8 Hem Onc [address] [place] [address] 08/06/2023 8:20 AM EST Office Visit Family [facility] [address] [place] [address] Carson Gallardo, [address] [place] [address] Scheduled Procedures Name Priority Associated Diagnoses Date/Ti [...] this encounter Medical Devices Implanted Type Area Merchant Patroller Device Identifier Shelf Expiration Date Model / Serial / Lot Port Implant W/8f Poly Cath - [id number] Implanted:Qty : 1 on 04/22/2023 by Kaiden Armenta MD at OR [facility] Right: Chest CR BARD : PERIPHERAL VASCULAR [id number] 11/19/2024 [id number] / / [id number] documented as of this encounter Advance Directives Documents on File Type Date Recorded Patient Rubber Mold Maker Expl anation Advance Directives and Living Will 09/07/2017 LIVING WILL Latest Code Status on File Code Status Date Activated Date Inactivated Comments Full Code 03/04/2023 7:10 AM 03/04/2023 3:47 PM Question Answer Comments Discussion of Advance Directives occurred with: Not Discussed due to patient's condition Care Teams Material Handler Loader Relationship Specialty Start Date End Date Carson Gallardo DO [address] [place] [address] PCP - General Family Medicine 07/18/19 documented as of this encounter
--- OUTSIDE RECORDS SUMMARY | 2023-10-08 04:00 | External Medical Summary | Summary of Care ---
Author Name Unknown Organization [facility] Address [address] [place] [address] Phone [phone] Care Team Providers Care Supervisor Air Conditioning Installer Name Role Phone Carson Gallardo Primary Care Provider Encounter Details Date Type Department Care Team (Late st Contact Info) Description 06/18/2023 Orders Only Hematology/Oncology, [facility] [address] [place] [address] Susie Epstein MD [address] [place] [address] Allergies Active Allergy Reactions Criticality Noted Date Comments Sulfamethoxazole-Trimethop rim Fever,Other (Please comment) 09/13/2019 documented as of this encounter (statuses as of 06/18/2023) Medications Medication Sig Dispensed Refills Start Date [...] BEDTIME 90 Tablet 3 08/13/2022 Active Ipratropium [place] 0.03 % Nasal Solution (Atrovent) ADMINISTER 2 [...] as of this encounter (statuses as of 06/18/2023) Active Problems Problem Noted Date Diagnosed Date [...] as of this encounter (statuses as of 06/18/2023) Resolved Problems Problem Noted Date Diagnosed Date Resolved Date Family history of malignant neoplasm of prostate 03/11/2018 08/31/2019 Impaired fasting glucose 04/11/201404/2020 Metabolon Quantose IR Resear Study*[id number] 01/20/2014 04/10/2014 Overview: METABOLON QUANTOSE IR STUDY. PROJECT: #[id number], BEVELLER OPERATOR: Tarun Nieto MD/ Dejuan Magdaleno MD. SUMMARY: The Use of a Novel Insulin Resistance Test as a Monitoring Indicator of Glycemic Control in Prediabetics and Diabetics treated with metformin combined with lifestyle intervention. CONTACTS: During normal business hours, contact Lily Burgos RN, BSN at ; after hours Nurses Supervisor via the [facility] soldering machine operator helper Impotence of organic origin 01/09/2014 08/31/2019 Epididymitis 01/09/2014 03/09/2017 Elevated prostate specific antigen (PSA) 01/09/2014 01/09/2014 Dry eye syndrome 12/31/2012 08/31/2019 Low testosterone 12/31/2012 08/31/2019 Family history of GI malignancy 07/09/2012 08/31/2019 Other specified hypothyroidism 08/19/2006 08/31/2019 ADVANCE DIRECTIVE INFORMATION 2006 08/31/2019 Overview: Information given to patient. DISC DIS [id number]-[id number] - bulge L3-4, L4-5 02/21/2002 08/31/2019 FAM HX-DIABETES MELLITUS - Dad 01/31/1999 08/31/2019 Mixed dyslipidemia 02/01/1998 9 Overview: Per Lipid Taxonomy. Idiopathic urticaria 020 documented as of this encounter (statuses as of 06/18/2023) Immunizations Name Administration Dates Next Due COVID-19 [...] Description 06/23/2023 9:30 AM EST Laboratory Laboratory [facility] [place] [address] [place] [phone] [place] [address] [place] [address] [address] 06/23/2023 10:30 AM EST Hem/Onc Treatment Hematology/Oncology Treatment, [place] [address] [place] [address] Park, Chair 3 Hem Onc Scenery [address] [place] [address] 07/14/2023 8:30 AM EST Laboratory Laboratory [facility] [address] [place] [phone] Danielle, Lab Scenery [address] [facility] [place] [address] 07/14/2023 9:00 AM EST Office Visit Hematology/Oncology [facility] [address] [place] [address] Susie Epstein MD [address] [place] [address] 07/14/2023 9:30 AM EST [facility] [address] [place] [address] Danielle, Chair 8 Hem Onc Scenery [address] [place] [address] 08/06/2023 8:20 AM EST Office Visit Family [facility] [address] [place] [address] Carson Gallardo DO [facility] [place] [address] Scheduled Procedures Name Priority Associated Diagnoses Date/Ti [...] encounter Medical Devices Implanted Type Area Senior Enlisted Advisor Device Identifier Shelf Expiration Date Model / Serial / Lot Port Implant W/8f Poly Cath - [id number] Implanted:Qty : 1 on 04/22/2023 by Kaiden Armenta MD at OR [facility] Right: Chest CR BARD : PERIPHERAL VASCULAR [id number] 11/19/2024 [id number] / / [id number] documented as of this encounter Advance Directives Documents on File Type Date Recorded Patient Electronics Engineering Technician Expl anation Advance Directives and Living Will 09/07/2017 LIVING WILL Latest Code Status on File Code Status Date Activated Date Inactivated Comments Full Code 03/04/2023 7:10 AM 03/04/2023 3:47 PM Question Answer Comments Discussion of Advance Directives occurred with: Not Discussed due to patient's condition Care Teams Supervisor Air Conditioning Installer Relationship Specialty Start Date End Date Carson Gallardo DO [address] [place] [address] PCP - General Family Medicine 07/18/19 documented as of this encounter
--- OUTSIDE RECORDS SUMMARY | 2023-10-08 04:00 | External Medical Summary ---
Author Name Unknown Address Unknown Organization K01:LABORATORY [facility] - [address] [facility] [address] Laboratory Report Ordering Provider Test Date Status SHAZIACHRIS 06/23/2023 09:46:32 Final Observation Date Value Abnormality Reference (Units ) Status TSH 06/23/2023 09:46:32 2.36 0.27-4.20 (uIU/mL) Final Performing Location LABORATORY [facility] - [address] [facility] [address]
--- OUTSIDE RECORDS SUMMARY | 2023-10-08 04:00 | External Medical Summary ---
Author Name Unknown Address Unknown Organization K09:[facility] [place] [address] Laboratory Report Ordering Provider Test Date Status CHRIS MCCRAY 06/23/2023 09:46:32 Final Observation Date Value Abnormality Reference (Units ) Status WBC, Total 06/23/2023 09:46:32 6.15 4.00-10.8 0 (K/uL) Final RBC 06/23/2023 09:46:32 4.69 4.50-5.25 (M/uL) Final Hemoglobin 06/23/2023 09:46:32 14.6 14.0-16.8 (g/dL) Final HCT 06/23/2023 09:46:32 44.1 40.0-48.4 (%) Final MCV 06/23/2023 09:46:32 94.0 82.0-99.5 (fL) Final MCH 06/23/2023 09:46:32 31.1 27.0-34.0 (pg) Final MCHC 06/23/2023 09:46:32 33.1 32.0-36.0 (g/dL) Final RDW 06/23/2023 09:46:32 14.1 11.5-15.5 (%) Final Platelets 06/23/2023 09:46:32 186 140-400 (K /uL) Final MPV 06/23/2023 09:46:32 9.4 6.6-11.1 ( fL) Final Performing Location [facility] [address]
--- OUTSIDE RECORDS SUMMARY | 2023-10-08 04:01 | External Medical Summary | Summary of Care ---
Author Name Unknown Organization [facility] Address [address] [place] [address] Phone [phone] Care Team Providers Care Manager Of Human Resources Name Role Phone Carson Gallardo Primary Care Provider Reason for Visit * Reason Onset Date Comments Insurance 06/16/2023 Encounter Details Date Type Department Care Team (Late st Contact Info) Description 06/16/2023 Telephone Hematology/Oncology Treatment, [place] [address] [place] [address] Susie Epstein MD [address] [place] [address] Insurance Allergies Active Allergy Reactions Criticality Noted Date Comments Sulfamethoxazole-Trimethop rim Fever,Other (Please comment) 09/13/2019 documented as of this encounter (statuses as of 06/16/2023) Medications Medication Sig Dispensed Refills Start Date [...] BEDTIME 90 Tablet 3 08/13/2022 Active Ipratropium [place] 0.03 % Nasal Solution (Atrovent) ADMINISTER 2 [...] as of this encounter (statuses as of 06/16/2023) Active Problems Problem Noted Date Diagnosed Date [...] as of this encounter (statuses as of 06/16/2023) Resolved Problems Problem Noted Date Diagnosed Date Resolved Date Family history of malignant neoplasm of prostate 03/11/2018 08/31/2019 Impaired fasting glucose 04/11/201404/2020 [facility]on [facility]*[id number] 01/20/2014 04/10/2014 Overview: METABOLON QUANTOSE IR STUDY. PROJECT: #[id number], TIMBER APPRAISER: Tarun Nieto MD/ Dejuan Magdaleno MD. SUMMARY: The Use of a Novel Insulin Resistance Test as a Monitoring Indicator of Glycemic Control in Prediabetics and Diabetics treated with metformin combined with lifestyle intervention. CONTACTS: During normal business hours, contact Lily Burgos RN, BSN at ; after hours Paper Folder via the [facility] vacuum cooker operator Impotence of organic origin 01/09/2014 08/31/2019 Epididymitis 01/09/2014 03/09/2017 Elevated prostate specific antigen (PSA) 01/09/2014 01/09/2014 Dry eye syndrome 12/31/2012 08/31/2019 Low testosterone 12/31/2012 08/31/2019 Family history of GI malignancy 07/09/2012 08/31/2019 Other specified hypothyroidism 08/19/2006 08/31/2019 ADVANCE DIRECTIVE INFORMATION 2006 08/31/2019 Overview: Information given to patient. DISC DIS [id number]-SDH-[id number] - bulge L3-4, L4-5 02/21/2002 08/31/2019 FAM HX-DIABETES MELLITUS - Dad 01/31/1999 08/31/2019 Mixed dyslipidemia 02/01/1998 9 Overview: Per Lipid Taxonomy. Idiopathic urticaria 020 documented as of this encounter (statuses as of 06/16/2023) Immunizations Name Administration Dates Next Due COVID-19 [...] AM EST Patients insurance is changing to [employer] 06/22/23. Scheduled for labs/ keytruda 06/23/23. Called patient. He states that he does have his new insurance card, will stop by a [employer] officeto have it scanned in. ID # [id number]. Precert: FYI for when insurance becomes active 06/22/23. documented in this encounter Plan of Treatment Upcoming Encounters Date Type Department Care Team (Late st Contact Info) Description 06/23/2023 9:30 AM EST Laboratory Laboratory [facility] [place] [address] [place] [phone] Danielle, Lab Scenery [address] [place] [address] 06/23/2023 10:30 AM EST Hem/Onc Treatment Hematology/Oncology Treatment, [place] [address] [facility], [place] [address] Danielle, Chair 3 Hem Onc Scenery [address] [place] [address] 07/14/2023 8:30 AM EST Laboratory Laboratory [facility] [place] [address] [place] [phone] Danielle, Lab Scenery [address] [facility] [place] [address] 07/14/2023 9:00 AM EST Office Visit Hematology/Oncology [facility] [place] [address] [place] [address] Susie Epstein MD [address] [place] [address] 07/14/2023 9:30 AM EST Hem/Onc Treatment Hematology/Oncology Treatment, [place] [address] [facility], [place] [address] Danielle, Chair 8 Hem Onc Scenery [address] [place] [address] 08/06/2023 8:20 AM EST Office [facility] [address] [facility] [place] [address] Carson Gallardo, [address] [place] [address] Scheduled Procedures Name Priority Associated Diagnoses Date/Ti [...] this encounter Medical Devices Implanted Type Area Gold Leaf Laborer Device Identifier Shelf Expiration Date Model / Serial / Lot Port Implant W/8f Poly Cath - [id number] Implanted:Qty : 1 on 04/22/2023 by Kaiden Armenta MD at OR [facility] Right: Chest CR BARD : PERIPHERAL VASCULAR [id number] 11/19/2024 [id number] / / [id number] documented as of this encounter Advance Directives Documents on File Type Date Recorded Patient Endodontic Assistant Expl anation Advance Directives and Living Will 09/07/2017 LIVING WILL Latest Code Status on File Code Status Date Activated Date Inactivated Comments Full Code 03/04/2023 7:10 AM 03/04/2023 3:47 PM Question Answer Comments Discussion of Advance Directives occurred with: Not Discussed due to patient's condition Care Teams Manager Of Human Resources Relationship Specialty Start Date End Date Carson Gallardo DO [address] [place] [address] PCP - General Family Medicine 07/18/19 documented as of this encounter
--- OUTSIDE RECORDS SUMMARY | 2023-10-08 04:01 | External Medical Summary | Summary of Care ---
Author Name Unknown Organization [facility] Address [address] [place] [address] Phone [phone] Care Team Providers Care Casting Coordinator Name Role Phone Carson Gallardo Primary Care Provider Reason for Visit * Reason Comments Chemotherapy C4/D1 - Keytruda * Episode Based Medications (Routine) - Authorized Specialty Diagnoses / Procedures Referred By Contyakelin t Referred To Contact Diagnoses Malignant melanoma of face (HCC) Procedures NH INJ PEMBROLIZUMAB Susie Epstein MD [address] [place] [address] Anc Hem/Onc [place] DEPT CLOSED - 05/05/23 [address] [place] [address] Referral ID Status Reason Start Date Expiration Date V isits Requested Visits Authorized [id number] Authorized 03/17/2023 06/21/2099 99 99 Encounter Details Date Type Department Care Team (Latest Contact Info) Description 06/02/2023 9:45 AM EST Hem/Onc Treatment Hematology/Oncolog y Treatment, [place] [address] [place] [address] Danielle, Chair 10 Hem Onc Scenery [address] [place] [address] Malignant melanoma of face (HCC)*; Encounter for antineoplastic immunotherapy Allergies Active Allergy Reactions Criticality Noted Date Comments Sulfamethoxazole-Trimethop rim Fever,Other (Please comment) 09/13/2019 documented as of this encounter (statuses as of 06/02/2023) Medications Medication Sig Dispensed Refills Start Date [...] BEDTIME 90 Tablet 3 08/13/2022 Active Ipratropium [place] 0.03 % Nasal Solution (Atrovent) ADMINISTER 2 [...] as of this encounter (statuses as of 06/02/2023) Active Problems Problem Noted Date Diagnosed Date [...] as of this encounter (statuses as of 06/02/2023) Resolved Problems Problem Noted Date Diagnosed Date Resolved Date Family history of malignant neoplasm of prostate 03/11/2018 08/31/2019 Impaired fasting glucose 04/11/201404/2020 Metabolon Quantose IR [facility] Study*[id number] 01/20/2014 04/10/2014 Overview: METABOLON QUANTOSE IR STUDY. PROJECT: #[id number], INTERNAL MEDICINE PHYSICIAN ASSISTANT: Tarun Nieto MD/ Dejuan Magdaleno MD. SUMMARY: The Use of a Novel Insulin Resistance Test as a Monitoring Indicator of Glycemic Control in Prediabetics and Diabetics treated with metformin combined with lifestyle intervention. CONTACTS: During normal business hours, contact Lily Burgos RN, BSN at ; after hours Bacon Skin Lifter via the [facility] hospital link machine operator Impotence of organic origin 01/09/2014 08/31/2019 Epididymitis 01/09/2014 03/09/2017 Elevated prostate specific antigen (PSA) 01/09/2014 01/09/2014 Dry eye syndrome 12/31/2012 08/31/2019 Low testosterone 12/31/2012 08/31/2019 Family history of GI malignancy 07/09/2012 08/31/2019 Other specified hypothyroidism 08/19/2006 08/31/2019 ADVANCE DIRECTIVE INFORMATION 2006 08/31/2019 Overview: Information given to patient. DISC DIS [id number]-[id number] - bulge L3-4, L4-5 02/21/2002 08/31/2019 FAM HX-DIABETES MELLITUS - Dad 01/31/1999 08/31/2019 Mixed dyslipidemia 02/01/1998 9 Overview: Per Lipid Taxonomy. Idiopathic urticaria 020 documented as of this encounter (statuses as of 06/02/2023) Immunizations Name Administration Dates Next Due COVID-19 [...] 06/23/2023 9:30 AM EST Laboratory Laboratory [facility] [place] [address] [place] [phone] Danielle, Lab Scene [address] [place] [address] [address] 06/23/2023 10:30 AM EST Hem/Onc Treatment Hematology/Oncology Treatment, [place] [address] [place] [address] Danielle, Chair 7 Hem Onc Scenery [address] [place] [address] 07/14/2023 8:30 AM EST Laboratory Laboratory Sc[place]ery [place] [address] [place] [phone] Danielle, Lab Scenery [address] [facility] [place] [address] 07/14/2023 9:00 AM EST Office Visit Hematology/Oncology [facility] [place] [address] [place] [address] Susie Epstein MD [address] [place] [address] 07/14/2023 9:30 AM EST [facility] [address] [place] [address] Danielle, Chair 8 Hem Onc Scenery [address] [place] [address] 08/06/2023 8:20 AM EST Office Visit [facility] [address] [place] [address] Carson Gallardo DO [address] [place] [address] Scheduled Procedures Name Priority Associated Diagnoses Date/Ti va COLONOSCOPY FLEXIBLE PROXIMAL DIAGNOSTIC Recall History of [...] this encounter Medical Devices Implanted Type Area Motorcycle Police Officer Device Identifier Shelf Expiration Date Model / Serial / Lot Port Implant W/8f Poly Cath - [id number] Implanted:Qty : 1 on 04/22/2023 by Kaiden Armenta MD at OR [facility] Right: Chest CR BARD : PERIPHERAL VASCULAR [id number] 11/19/2024 [id number] / / [id number] documented as of this encounter Visit Diagnoses [...] ONCE PRN Other, Hypersensitivity Reaction, Starting on Thu06/02/23 at 1012, Until Thu06/03/23 at 1011, For 24 hours EPINEPHrine 1 MG/ML inj 0.3 mg 0.3 mg, Intramuscular, ONCE PRN Other, Hypersensitivity Reaction or Anaphylaxis, Starting on Thu06/02/23 at 1012, Until Thu06/03/23 at 1011, For 24 hours hEParin 100 UNIT/ML Lock Flush inj 500 Units 500 Units (5 mL), IV Lock, PRN Other, IV Flush, Starting on Thu06/02/23 at 1012, Until Thu06/03/23 at 1011, For 24 hours, Do not flush if lock, PICC, or central line not in place; IV infusing or unable to flush. Given 06/02/2023 10:50 AM EST 500 Units Hydrocortisone Sod Suc (PF) (Solu-Cortef) inj 100 mg 100 mg, IV Push, ONCE PRN Other, Hypersensitivity Reaction, Starting on Thu06/02/23 at 1012, Until Thu06/03/23 at 1011, For 24 hours NSS infusion Intravenous, at 50 mL/hr, PRN, Starting on Thu06/02/23 at 1115, Until Discontinued, KVO Start Infusion 06/02/2023 10:10 AM EST 50 mL/hr oxygen GAS Inhalation, OXYGEN, First dose on Thu06/02/23 at 1045, Until Discontinued, Device/Managed by: Low Flow Device, [...] Flush, Starting on Thu06/02/23 at 1012, Until Thu06/03/23 at 1011, For 24 hours, Do not flush if lock, PICC, or central line not in place; IV infusing or unable to flush. Given 06/02/2023 10:49 AM EST 10 mL Inactive Administered Medications - up to 3 most recent administrations Medication Order MAR Action Action Date Dose Rate Site Pembrolizumab (Keytruda) 200 mg in NSS 100 mL infusion 200 mg, IV Piggyback, ONCE, 1 dose, On Thu06/02/23 at 1145, Administer over 30 Minutes, Infuse through 0.2 micron filter. Start Infusion 06/02/2023 10:12 AM EST 200 mg 200 mL/hr documented in this encounter Advance Directives Documents on File Type Date Recorded Patient Money Room Teller Expl anation Advance Directives and Living Will 09/07/2017 LIVING WILL Latest Code Status on File Code Status Date Activated Date Inactivated Comments Full Code 03/04/2023 7:10 AM 03/04/2023 3:47 PM Question Answer Comments Discussion of Advance Directives occurred with: Not Discussed due to patient's condition Care Teams Casting Coordinator Relationship Specialty Start Date End Date Carson Gallardo DO [address] [place] [address] PCP - General Family Medicine 07/18/19 documented as of this encounter
--- OUTSIDE RECORDS SUMMARY | 2023-10-08 04:01 | External Medical Summary | Summary of Care ---
Author Name Unknown Organization [facility] Address [address] [place] [address] Phone [phone] Care Team Providers Care Semiconductor Packages Tester Name Role Phone Carson Gallardo Primary Care Provider Encounter Details Date Type Department Care Team (Late st Contact Info) Description 05/28/2023 Orders Only Hematology/Oncology, [facility] [address] [place] [address] Susie Epstein MD [address] [place] [address] Allergies Active Allergy Reactions Criticality Noted Date Comments Sulfamethoxazole-Trimethop rim Fever,Other (Please comment) 09/13/2019 documented as of this encounter (statuses as of 05/28/2023) Medications Medication Sig Dispensed Refills Start Date [...] BEDTIME 90 Tablet 3 08/13/2022 Active Ipratropium [place] 0.03 % Nasal Solution (Atrovent) ADMINISTER 2 [...] as of this encounter (statuses as of 05/28/2023) Active Problems Problem Noted Date Diagnosed Date [...] as of this encounter (statuses as of 05/28/2023) Resolved Problems Problem Noted Date Diagnosed Date Resolved Date Family history of malignant neoplasm of prostate 03/11/2018 08/31/2019 Impaired fasting glucose 04/11/201404/2020 Metabolon Quantose IR Resear Study*[id number] 01/20/2014 04/10/2014 Overview: METABOLON QUANTOSE IR STUDY. PROJECT: #[id number], FINANCIAL ASSISTANCE ADVISOR: Tarun Nieto MD/ Dejuan Magdaleno MD. SUMMARY: The Use of a Novel Insulin Resistance Test as a Monitoring Indicator of Glycemic Control in Prediabetics and Diabetics treated with metformin combined with lifestyle intervention. CONTACTS: During normal business hours, contact Lily Burgos RN, BSN at ; after hours Business Solutions Analyst via the [facility] insert molding operator Impotence of organic origin 01/09/2014 08/31/2019 Epididymitis 01/09/2014 03/09/2017 Elevated prostate specific antigen (PSA) 01/09/2014 01/09/2014 Dry eye syndrome 12/31/2012 08/31/2019 Low testosterone 12/31/2012 08/31/2019 Family history of GI malignancy 07/09/2012 08/31/2019 Other specified hypothyroidism 08/19/2006 08/31/2019 ADVANCE DIRECTIVE INFORMATION 2006 08/31/2019 Overview: Information given to patient. DISC DIS EMD-XVA-IZYOYD - bulge L3-4, L4-5 02/21/2002 08/31/2019 FAM HX-DIABETES MELLITUS - Dad 01/31/1999 08/31/2019 Mixed dyslipidemia 02/01/1998 9 Overview: Per Lipid Taxonomy. Idiopathic urticaria 020 documented as of this encounter (statuses as of 05/28/2023) Immunizations Name Administration Dates Next Due COVID-19 [...] (Prevnar) 02/26/2016 Pneumococcal Polysaccharide PPV23 (Pneumovax) 09/05/2016 Rsv Vac., Recomb, Adjuvant, Pf,0.5 Ml (Arexvy) 05/19/2023 SEASONAL INFLUENZA, PF, 6 M & Above, IM , (FLULAVAL or FLUZONE) 03/11/2018 Seasonal Influenza Virus Vac cine, Unspecified Formulation 05/06/2023,03/18/2021,03/27/2020,03/14,03/11/2018,03/09/2017,02/26/2016 ,03/21/2014,03/31/2013,05/05/2012,03/22,07/03/2010,06/04/2009, 8 Seasonal Influenza, Quadriva lent Hd (Fluzone Hd) [...] Care Team (Late st Contact Info) Description 06/02/2023 8:40 AM EST Laboratory Laboratory [place] [address] [place] [phone] [place] [address] 06/02/2023 9:15 AM EST Office Visit Hematology/Oncology [place] [address] [place] [address] [address] Susie Epstein MD [address] [place] [address] 06/02/2023 9:45 AM EST Hem/Onc Treatment Hematology/Oncology Treatment, [place] [address] [place] [address] Park, Chair 10 Hem Onc Scenery [address] [place] [address] 08/06/2023 8:20 AM EST Office Visit [facility] [address] [place] [address] Carson Gallardo, [address] [place] [address] Scheduled Procedures Name Priority Associated Diagnoses Date/Ti [...] 10/08/2021, 09/17/2020 Depression Screening 03/11/2024 03/11/2023 GFR 05/12/2024 05/12/2023, 03/24, 03/27/2023, Additional history exists TSH 05/12/2024 05/12/2023, 03/24, 03/27/2023, Additional history exists COLONOSCOPY-EVERY 5 YRS AGES [...] this encounter Medical Devices Implanted Type Area Slate Roofer Device Identifier Shelf Expiration Date Model / Serial / Lot Port Implant W/8f Poly Cath - [id number] Implanted:Qty : 1 on 04/22/2023 by Kaiden Armenta MD at OR [facility] Right: Chest CR BARD : PERIPHERAL VASCULAR [id number] 11/19/2024 [id number] / / [id number] documented as of this encounter Advance Directives Documents on File Type Date Recorded Patient Flight Service Specialist Expl anation Advance Directives and Living Will 09/07/2017 LIVING WILL Latest Code Status on File Code Status Date Activated Date Inactivated Comments Full Code 03/04/2023 7:10 AM 03/04/2023 3:47 PM Question Answer Comments Discussion of Advance Directives occurred with: Not Discussed due to patient's condition Care Teams Semiconductor Packages Tester Relationship Specialty Start Date End Date Carson Gallardo DO [address] [place] [address] [place] [address] PCP - General Family Medicine 07/18/19 documented as of this encounter
--- OUTSIDE RECORDS SUMMARY | 2023-10-08 04:01 | External Medical Summary | Summary of Care ---
Author Name Unknown Organization [facility] Address [address] [place] [address] Phone [phone] Care Team Providers Care Helminthology Teacher Name Role Phone Carson Gallardo Primary Care Provider Reason for Visit * Reason Onset Date Comments Insurance 06/16/2023 Encounter Details Date Type Department Care Team (Late st Contact Info) Description 06/16/2023 Telephone Hematology/Oncology Treatment, [place] [address] [place] [address] Susie Epstein MD [address] [place] [address] Insurance Allergies Active Allergy Reactions Criticality Noted [...] BEDTIME 90 Tablet 3 08/13/2022 Active Ipratropium [place] 0.03 % Nasal Solution (Atrovent) ADMINISTER 2 [...] Impaired fasting glucose 04/11/201404/2020 Metabolon Quantose [facility] Study*[id number] 01/20/2014 04/10/2014 Overview: METABOLON QUANTOSE IR STUDY. PROJECT: #[id number], COIL WINDING MACHINES SET UP MECHANIC: Tarun Nieto MD/ Dejuan Magdaleno MD. SUMMARY: The Use of a Novel Insulin Resistance Test as a Monitoring Indicator of Glycemic Control in Prediabetics and Diabetics treated with metformin combined with lifestyle intervention. CONTACTS: During normal business hours, contact Lily Burgos RN, BSN at ; after hours Human Resources Compensation Analyst via the [facility] assistant plant control operator Impotence of organic origin 01/09/2014 08/31/2019 Epididymitis 01/09/2014 03/09/2017 Elevated prostate specific antigen (PSA) 01/09/2014 01/09/2014 Dry eye syndrome 12/31/2012 08/31/2019 Low testosterone 12/31/2012 08/31/2019 Family history of GI malignancy 07/09/2012 08/31/2019 Other specified hypothyroidism 08/19/2006 08/31/2019 ADVANCE DIRECTIVE INFORMATION 2006 08/31/2019 Overview: Information given to patient. DISC DIS [id number] - bulge L3-4, L4-5 02/21/2002 08/31/2019 FAM [...] AM EST Patients insurance is changing to [employer] 06/22/23. Scheduled for labs/ keytruda 06/23/23. Called patient. He states that he does have his new insurance card, will stop by a [employer] officeto have it scanned in. ID # [id number]. Precert: FYI for when insurance becomes active 06/22/23. documented in this encounter Plan of Treatment Upcoming Encounters Date Type Department Care Team (Late st Contact Info) Description 06/23/2023 9:30 AM EST Laboratory Laboratory [facility] [address] [place] [phone] Danielle, Lab Scenery [address] [place] [address] 06/23/2023 10:30 AM EST Hem/Onc Treatment Hematology/Oncology Treatment, [place] [address] [facility], [place] [address] Danielle, Chair 3 Hem Onc Scenery [address] [place] [address] 07/14/2023 8:30 AM EST Laboratory Laboratory [facility] [place] [address] [place] [phone] Danielle, Lab Scenery [address] [facility] [place] [address] 07/14/2023 9:00 AM EST Office Visit Hematology/Oncology [facility] [place] [address] [place] [address] Susie Epstein MD [address] [place] [address] 07/14/2023 9:30 AM EST Hem/Onc Treatment Hematology/Oncology Treatment, [place] [address] [facility], [place] [address] Danielle, Chair 8 Hem Onc Scenery [address] [place] [address] 08/06/2023 8:20 AM EST [facility] [place] [address] Carson Gallardo, [address] [place] [address] Scheduled Procedures Name Priority Associated Diagnoses Date/Ti [...] this encounter Medical Devices Implanted Type Area Mammalogist Device Identifier Shelf Expiration Date Model / Serial / Lot Port Implant W/8f Poly Cath - [id number] Implanted:Qty : 1 on 04/22/2023 by Kaiden Armenta MD at OR [facility] Right: Chest CR BARD : PERIPHERAL VASCULAR [id number] 11/19/2024 [id number] / / [id number] documented as of this encounter Advance Directives Documents on File Type Date Recorded Patient Card Reader Expl anation Advance Directives and Living Will 09/07/2017 LIVING WILL Latest Code Status on File Code Status Date Activated Date Inactivated Comments Full Code 03/04/2023 7:10 AM 03/04/2023 3:47 PM Question Answer Comments Discussion of Advance Directives occurred with: Not Discussed due to patient's condition Care Teams Helminthology Teacher Relationship Specialty Start Date End Date Carson Gallardo DO [address] [place] [address] PCP - General Family Medicine 07/18/19 documented as of this encounter
--- OUTSIDE RECORDS SUMMARY | 2023-10-08 04:01 | External Medical Summary ---
Author Name Unknown Address Unknown Organization K01[place] [place] [address] [facility] [address] Laboratory Report Ordering Provider Test Date Status CHRIS MCCRAY 06/02/2023 08:53:14 Final Observation Date Value Abnormality Reference (Units ) Status TSH 06/02/2023 08:53:14 1.81 0.27-4.20 (uIU/mL) Final Performing Location [facility] [place] [address] [facility] [address]
--- OUTSIDE RECORDS SUMMARY | 2023-10-08 04:01 | External Medical Summary ---
Author Name Unknown Address Unknown Organization K09:[facility] [place] [address] Laboratory Report Ordering Provider Test Date Status CHRIS MCCRAY 06/02/2023 08:53:14 Final Observation Date Value Abnormality Reference (Units ) Status WBC, Total 06/02/2023 08:53:14 8.03 4.00-10.8 0 (K/uL) Final RBC 06/02/2023 08:53:14 4.48 4.50-5.25 (M/uL) Final Hemoglobin 06/02/2023 08:53:14 14.1 14.0-16.8 (g/dL) Final HCT 06/02/2023 08:53:14 42.6 40.0-48.4 (%) Final MCV 06/02/2023 08:53:14 95.1 82.0-99.5 (fL) Final MCH 06/02/2023 08:53:14 31.5 27.0-34.0 (pg) Final MCHC 06/02/2023 08:53:14 33.1 32.0-36.0 (g/dL) Final RDW 06/02/2023 08:53:14 13.7 11.5-15.5 (%) Final Platelets 06/02/2023 08:53:14 195 140-400 (K /uL) Final MPV 06/02/2023 08:53:14 10.1 6.6-11.1 ( fL) Final Performing Location [facility] [place] [address]
--- OUTSIDE RECORDS SUMMARY | 2023-10-08 04:01 | External Medical Summary | Summary of Care ---
Author Name Unknown Organization [facility] Address [address] [place] [address] Phone [phone] Care Team Providers Care Test Eng Name Role Phone Carson Gallardo Primary Care Provider Encounter Details Date Type Department Care Team (Late st Contact Info) Description 05/20/2023 Abstract Family Practice [facility] [address] [place] [address] Madhavi Mueller, RN Allergies Active Allergy Reactions Criticality Noted Date Comments Sulfamethoxazole-Trimethop rim Fever,Other (Please comment) 09/13/2019 documented as of this encounter (statuses as of 05/20/2023) Medications Medication Sig Dispensed Refills Start Date [...] BEDTIME 90 Tablet 3 08/13/2022 Active Ipratropium [place] 0.03 % Nasal Solution (Atrovent) ADMINISTER 2 [...] as of this encounter (statuses as of 05/20/2023) Active Problems Problem Noted Date Diagnosed Date [...] as of this encounter (statuses as of 05/20/2023) Resolved Problems Problem Noted Date Diagnosed Date Resolved Date Family history of malignant neoplasm of prostate 03/11/2018 08/31/2019 Impaired fasting glucose 04/11/201404/2020 [facility]on [facility]ose [facility]*[id number] 01/20/2014 04/10/2014 Overview: METABOLON QUANTOSE IR STUDY. PROJECT: #[id number], PROFESSOR OF ENGLISH: Tarun Nieto MD/ Dejuan Magdaleno MD. SUMMARY: The Use of a Novel Insulin Resistance Test as a Monitoring Indicator of Glycemic Control in Prediabetics and Diabetics treated with metformin combined with lifestyle intervention. CONTACTS: During normal business hours, contact Lily Burgos RN, BSN at ; after hours Extrusion Press Supervisor via the [facility] foaming machine operator Impotence of organic origin 01/09/2014 08/31/2019 Epididymitis 01/09/2014 03/09/2017 Elevated prostate specific antigen (PSA) 01/09/2014 01/09/2014 Dry eye syndrome 12/31/2012 08/31/2019 Low testosterone 12/31/2012 08/31/2019 Family history of GI malignancy 07/09/2012 08/31/2019 Other specified hypothyroidism 08/19/2006 08/31/2019 ADVANCE DIRECTIVE INFORMATION 2006 08/31/2019 Overview: Information given to patient. DISC DIS [id number] - bulge L3-4, L4-5 02/21/2002 08/31/2019 FAM HX-DIABETES MELLITUS - Dad 01/31/1999 08/31/2019 Mixed dyslipidemia 02/01/1998 9 Overview: Per Lipid Taxonomy. Idiopathic urticaria 020 documented as of this encounter (statuses as of 05/20/2023) Immunizations Name Administration Dates Next Due COVID-19 [...] State [place] [address] [place] [address] Danielle Lab [place] [address] [place] [address] 06/02/2023 9:15 AM EST Office Visit Hematology/Oncology [place] [address] [place] [address] Susie Epstein MD [address] [place] [address] [address] 06/02/2023 9:45 AM EST Hem/Onc Treatment Hematology/Oncology Treatment, [place] [address] [place] [address] Danielle, Chair 10 Hem Onc Scenery [address] [place] [address] 08/06/2023 8:20 AM EST Office Visit Family [facility] [address] [place] [address] Carson Gallardo, [address] [place] [address] Scheduled Procedures Name Priority Associated Diagnoses Date/Ti [...] this encounter Medical Devices Implanted Type Area Panel Machine Tender Device Identifier Shelf Expiration Date Model / Serial / Lot Port Implant W/8f Poly Cath - [id number] Implanted:Qty : 1 on 04/22/2023 by Kaiden Armenta MD at OR [facility] Right: Chest CR BARD : PERIPHERAL VASCULAR [id number] 11/19/2024 [id number] / / [id number] documented as of this encounter Advance Directives Documents on File Type Date Recorded Patient Day Porter Expl anation Advance Directives and Living Will 09/07/2017 LIVING WILL Latest Code Status on File Code Status Date Activated Date Inactivated Comments Full Code 03/04/2023 7:10 AM 03/04/2023 3:47 PM Question Answer Comments Discussion of Advance Directives occurred with: Not Discussed due to patient's condition Care Teams Test Eng Relationship Specialty Start Date End Date Carson Gallardo DO [address] [place] [address] PCP - General Family Medicine 07/18/19 documented as of this encounter
--- OUTSIDE RECORDS SUMMARY | 2023-10-08 04:01 | External Medical Summary ---
Author Name Unknown Address Unknown Organization K09:[facility] [place] [address] [place] [address] Laboratory Report Ordering Provider Test Date Status CHRIS MCCRAY 06/02/2023 08:53:14 Final Observation Date Value Abnormality Reference (Units ) Status BUN 06/02/2023 08:53:14 10 6-20 (mg/dL) Final Creatinine 06/02/2023 08:53:14 0.8 0.6-1.2 (mg/dL) Final Glomerular filtration rate/1.73 sq M.predicted [Volume Rate/Area] in Serum, Plasma or Blood by Creatinine-based formula (CKD-EPI) 06/02/2023 08:53:14 >90 >=60 (mL/min) Final eGFR is calculated based on the CKD-EPI 2020 equation SODIUM 06/02/2023 08:53:14 136 135-146 (m mol/L) Final Potassium 06/02/2023 08:53:14 4.5 3.5-5.1 (m mol/L) Final Cl 06/02/2023 08:53:14 100 98-107 (mm ol/L) Final CO2 06/02/2023 08:53:14 26 22-32 (mmo l/L) Final Anion gap 06/02/2023 08:53:14 10 7-15 (mmol /L) Final Glucose 06/02/2023 08:53:14 137 Above high normal 70 -120 (mg/dL) Final Albumin 06/02/2023 08:53:14 4.4 3.8-5.0 (g /dL) Final AST (Aspartate aminotransferase) 06/02/2023 08:53:14 23 10-50 (U/L) Fin al Alk Phos 06/02/2023 08:53:14 114 35-130 (U/ L) Final Bilirubin, Total 06/02/2023 08:53:14 0.8 <=1 .2 (mg/dL) Final Calcium 06/02/2023 08:53:14 9.8 8.4-10.2 ( mg/dL) Final Protein 06/02/2023 08:53:14 7.5 6.0-8.3 (g /dL) Final ALT (Alanine aminotransferase) 06/02/2023 08:53:14 14 10-50 (U/L) Rodrick crocker Performing Location [facility] [place] [address] [place] [address]
--- OUTSIDE RECORDS SUMMARY | 2023-10-08 04:01 | External Medical Summary | Summary of Care ---
Author Name Unknown Organization [facility] Address [address] [place] [address] Phone [phone] Care Team Providers Care Gastroenterology Manager Name Role Phone Carson Gallardo Primary Care Provider Reason for Visit * Reason Comments Outpatient Testing Encounter Details Date Type Department Care Team (Late st Contact Info) Description 06/02/2023 8:40 AM EST Laboratory [facility] [address] [place] [phone] [place], Lab Scenery [address] [place] [address] Malignant melanoma of face (HCC); Encounter for [...] BEDTIME 90 Tablet 3 08/13/2022 Active Ipratropium [place] 0.03 % Nasal Solution (Atrovent) ADMINISTER 2 [...] fasting glucose 04/11/201404/2020 Metabolon Quantose IR Resear Study*[id number] 01/20/2014 04/10/2014 Overview: METABOLON QUANTOSE IR STUDY. PROJECT: #[id number], RAIL CAR OPERATOR: Tarun Nieto MD/ Dejuan Magdaleno MD. SUMMARY: The Use of a Novel Insulin Resistance Test as a Monitoring Indicator of Glycemic Control in Prediabetics and Diabetics treated with metformin combined with lifestyle intervention. CONTACTS: During normal business hours, contact Lily Burgos RN, BSN at ; after hours Wet Mix Operator via the [facility] book jacket cover machine operator Impotence of organic origin 01/09/2014 08/31/2019 Epididymitis 01/09/2014 03/09/2017 Elevated prostate specific antigen (PSA) 01/09/2014 01/09/2014 Dry eye syndrome 12/31/2012 08/31/2019 Low testosterone 12/31/2012 08/31/2019 Family history of GI malignancy 07/09/2012 08/31/2019 Other specified hypothyroidism 08/19/2006 08/31/2019 ADVANCE DIRECTIVE INFORMATION 2006 08/31/2019 Overview: Information given to patient. DISC DIS [id number] - bulge L3-4, L4-5 02/21/2002 08/31/2019 FAM [...] Team (Late st Contact Info) Description 06/02/2023 9:15 AM EST Office Visit Hematology/Oncology [place] [address] [place] [address] [address] Susie Epstein MD [address] [place] [address] [address] Arrived 06/02/2023 9:45 AM EST Hem/Onc Treatment Hematology/Oncology Treatment, [place] [address] [place] [address] Danielle, Chair 10 Hem Onc Scenery [address] [place] [address] Arrived 08/06/2023 8:20 AM EST Office Visit [facility] [address] [place] [address] Carson Gallardo, [address] [place] [address] Pending Results Name Type Priority Associated Diagnoses Date /Time COMPREHENSIVE METABOLIC PANEL Lab STAT Malignant melanoma of face (HCC) 06/02/2023 8:53 AM EST TSH WITH FREE T4 IF INDICATED Lab STAT Malignant melanoma of face (HCC) Encounter for long-term (current) use of medications 06/02/2023 8:53 AM EST Scheduled Procedures Name Priority Associated [...] this encounter Medical Devices Implanted Type Area Weight Guesser Device Identifier Shelf Expiration Date Model / Serial / Lot Port Implant W/8f Poly Cath - [id number] Implanted:Qty : 1 on 04/22/2023 by Kaiden Armenta MD at [facility] Right: Chest CR BARD : PERIPHERAL VASCULAR [id number] 11/19/2024 [id number] / / [id number] documented as of this encounter Procedures Procedure Name Priority Date/Time Associated Diagnosis Comments DIFFERENTIAL, AUTOMATED STAT 06/02/2023 8:53 AM EST Malignant melanoma of face (HCC) CBC STAT 06/02/2023 8:53 AM EST Malignant melanoma of face (HCC) CBC STAT 06/02/2023 8:53 AM EST Malignant melanoma of face (HCC) documented in this encounter Results * (ABNORMAL) DIFFERENTIAL, AUTOMATED (06/02/2023 8:53 AM EST) WBC 8.03 4.00 - 10.80 K/uL 06/02/2023 9:02 AM [facility] 56-02 Neutrophils % 44.1 40.0 - 75.0 % 06/02/2023 9:02 AM [facility] 56-02 Lymphocytes % 41.2 18.0 - 42.0 % 06/02/2023 9:02 AM [facility] 56-02 Monocytes % 14.6(H) 1.0 - 11.0 % 06/02/2023 9:02 AM [facility] 56-02 Eosinophils % 0.0 0.0 - 6.0 % 06/02/2023 9:02 AM [facility] 56-02 Basophils % 0.1 0.0 - 2.0 % 06/02/2023 9:02 AM [facility] 56-02 Absolute Neutrophils 3.54 1.80 - 7.70 K/uL 06/02/2023 9:02 AM [facility] 56-02 Absolute Lymphocytes 3.31 1.00 - 4.80 K/ul 06/02/2023 9:02 AM [facility] 56-02 Absolute Monocytes 1.17(H) 0.00 - 1.10 K/uL 06/02/2023 9:02 AM [facility] 56-02 Absolute Eosinophils 0.00 0.00 - 0.70 K/uL 06/02/2023 9:02 AM [facility] 56-02 Absolute Basophils 0.01 0.00 - 0.20 K/uL 06/02/2023 9:02 AM [facility] 56-02 Blood Venous blood specimen / Unknown Venipuncture / Unknown 06/02/2023 8:53 AM EST 06/02/2023 8:53 AM EST Susie Epstein MD LAB BLOOD [facility] [address] [place] [address] * CBC (06/02/2023 8:53 AM EST) WBC 8.03 4.00 - 10.80 K/uL 06/02/2023 9:02 AM [facility] 56-02 RBC 4.48 4.50 - 5.25 M/uL 06/02/2023 9:02 AM [facility] 56-02 HGB 14.1 14.0 - 16.8 g/dL 06/02/2023 9:02 AM [facility] 56- HCT 42.6 40.0 - 48.4 % 06/02/2023 9:02 AM [facility] 56- MCV 95.1 82.0 - 99.5 fL 06/02/2023 9:02 AM [facility] 56-02 MCH 31.5 27.0 - 34.0 pg 06/02/2023 9:02 AM [facility] 56- MCHC 33.1 32.0 - 36.0 g/dL 06/02/2023 9:02 AM [facility] 56- RDW 13.7 11.5 - 15.5 % 06/02/2023 9:02 AM [facility] 56-02 PLT 195 140 - 400 K/uL 06/02/2023 9:02 AM [facility] 56-02 MPV 10.1 6.6 - 11.1 fL 06/02/2023 9:02 AM [facility] 56-02 Blood Venous blood specimen / Unknown Venipuncture / Unknown 06/02/2023 8:53 AM EST 06/02/2023 8:53 AM EST Susie Epstein MD LAB BLOOD [facility] [address] [place] [address] documented in this encounter Visit Diagnoses Diagnosis Malignant melanoma of face (HCC) Malignant melanoma of skin of other and unspecified parts of face Encounter for long-term (current) use of medications Encounter for long-term (current) use of other medications documented in this encounter Advance Directives Documents on File Type Date Recorded Patient [place] Bottom Maker Expl anation Advance Directives and Living Will 09/07/2017 LIVING WILL Latest Code Status on File Code Status Date Activated Date Inactivated Comments Full Code 03/04/2023 7:10 AM 03/04/2023 3:47 PM Question Answer Comments Discussion of Advance Directives occurred with: Not Discussed due to patient's condition Care Teams Gastroenterology Manager Relationship Specialty Start Date End Date Carson Gallardo DO [address] [place] [address] PCP - General Family Medicine 07/18/19 documented as of this encounter
--- OUTSIDE RECORDS SUMMARY | 2023-10-08 04:01 | External Medical Summary | Summary of Care ---
Author Name Unknown Organization [facility] Address [address] [place] [address] Phone [phone] Care Team Providers Care Business Administrator Name Role Phone Carson Gallardo Primary Care Provider Reason for Visit * Reason Onset Date Comments Insurance 06/16/2023 ac Encounter Details Date Type Department Care Team (Late st Contact Info) Description 06/16/2023 Telephone Hematology/Oncology Treatment, [place] [address] [place] [address] Susie Epstein MD [address] [place] [address] Insurance (ac) Allergies Active Allergy Reactions Criticality [...] BEDTIME 90 Tablet 3 08/13/2022 Active Ipratropium [place] 0.03 % Nasal Solution (Atrovent) ADMINISTER 2 [...] fasting glucose 04/11/201404/2020 Metabolon Quantose IR Resear Study*[id number] 01/20/2014 04/10/2014 Overview: METABOLON QUANTOSE IR STUDY. PROJECT: #[id number], PRODUCTION HAND: Tarun Nieto MD/ Dejuan Magdaleno MD. SUMMARY: The Use of a Novel Insulin Resistance Test as a Monitoring Indicator of Glycemic Control in Prediabetics and Diabetics treated with metformin combined with lifestyle intervention. CONTACTS: During normal business hours, contact Lily Burgos RN, BSN at ; after hours Voltmeter Operator via the [facility] knot saw operator Impotence of organic origin 01/09/2014 08/31/2019 Epididymitis 01/09/2014 03/09/2017 Elevated prostate specific antigen (PSA) 01/09/2014 01/09/2014 Dry eye syndrome 12/31/2012 08/31/2019 Low testosterone 12/31/2012 08/31/2019 Family history of GI malignancy 07/09/2012 08/31/2019 Other specified hypothyroidism 08/19/2006 08/31/2019 ADVANCE DIRECTIVE INFORMATION 2006 08/31/2019 Overview: Information given to patient. DISC DIS [id number] - bulge L3-4, L4-5 02/21/2002 08/31/2019 FAM [...] AM EST Patients insurance is changing to [employer] 06/22/23. Scheduled for labs/ keytruda 06/23/23. Called patient. He states that he does have his new insurance card, will stop by a [employer] officeto have it scanned in. ID # [id number]. Precert: FYI for when insurance becomes active 06/22/23. documented in this encounter Plan of Treatment Upcoming Encounters Date Type Department Care Team (Late st Contact Info) Description 06/23/2023 9:30 AM EST Laboratory Laboratory [facility] [place] [address] [place] [phone] Danielle, Lab Scenery [address] [place] [address] 06/23/2023 10:30 AM EST Hem/Onc Treatment Hematology/Oncology Treatment, [place] [address] [facility] [place] [address] Danielle, Chair 3 Hem Onc Scenery [address] [place] [address] 07/14/2023 8:30 AM EST Laboratory Laboratory [facility] [place] [address] [place] [phone] Danielle, Lab Scenery [address] [facility] [place] [address] 07/14/2023 9:00 AM EST Office Visit Hematology/Oncology [facility] Danielle [place] [address] [place] [address] Susie Epstein MD [address] [place] [address] 07/14/2023 9:30 AM EST Hem/Onc Treatment [facility] [place] [facility] [address] Danielle, Chair 8 Hem Onc Scenery [address] [place] [address] 08/06/2023 8:20 AM EST Office Visit Family [facility] [address] [place] [address] Carson Gallardo, [address] [place] [address] Scheduled Procedures Name Priority Associated Diagnoses Date/Ti [...] this encounter Medical Devices Implanted Type Area Teachers Aide Device Identifier Shelf Expiration Date Model / Serial / Lot Port Implant W/8f Poly Cath - [id number] Implanted:Qty : 1 on 04/22/2023 by Kaiden Armenta MD at OR [facility] Right: Chest CR BARD : PERIPHERAL VASCULAR [id number] 11/19/2024 [id number] / / [id number] documented as of this encounter Advance Directives Documents on File Type Date Recorded Patient High Lead Yarder Expl anation Advance Directives and Living Will 09/07/2017 LIVING WILL Latest Code Status on File Code Status Date Activated Date Inactivated Comments Full Code 03/04/2023 7:10 AM 03/04/2023 3:47 PM Question Answer Comments Discussion of Advance Directives occurred with: Not Discussed due to patient's condition Care Teams Business Administrator Relationship Specialty Start Date End Date Carson Gallardo DO [address] [place] [address] PCP - General Family Medicine 07/18/19 documented as of this encounter
--- OUTSIDE RECORDS SUMMARY | 2023-10-08 04:01 | External Medical Summary ---
Author Name Unknown Address Unknown Organization K09:[facility] [place] [address] Laboratory Report Ordering Provider Test Date Status CHRIS MCCRAY 06/02/2023 08:53:14 Final Observation Date Value Abnormality Reference (Units ) Status SYNC LEUKOCYTES IN BLOOD BY AUTOMATED COUNT 06/02/2023 08:53:14 8.03 4.00-10.80 (K/uL) Final Segs 06/02/2023 08:53:14 44.1 40.0-75.0 (%) Final Lymphs % 06/02/2023 08:53:14 41.2 18.0-42.0 (%) Final Monos 06/02/2023 08:53:14 14.6 Above high normal 1.0-11.0 (%) Final Eosinophils 06/02/2023 08:53:14 0.0 0.0-6.0 (%) Final Basos 06/02/2023 08:53:14 0.1 0.0-2.0 (%) Final Absolute Segs 06/02/2023 08:53:14 3.54 1.80-7.70 (K/uL) Final Lymphs, absolute 06/02/2023 08:53:14 3.31 1.00-4.80 (K/ul) Final Monos, Abs 06/02/2023 08:53:14 1.17 Above high normal 0.00-1.10 (K/uL) Final Eos, Abs 06/02/2023 08:53:14 0.00 0.00-0.70 (K/uL) Final Basos, Abs 06/02/2023 08:53:14 0.01 0.00-0.20 (K/uL) Final Performing Location [facility] [place] [address]
--- OUTSIDE RECORDS SUMMARY | 2023-10-08 04:01 | External Medical Summary | Summary of Care ---
Author Name Unknown Organization [facility] Address [address] [place] [address] Phone [phone] Care Team Providers Care Proofsheet Corrector Name Role Phone Carson Gallardo Primary Care Provider Reason for Visit * Reason Comments Re-Check Encounter Details Date Type Department Care Team (Late st Contact Info) Description 06/02/2023 9:15 AM EST Office Visit Hematology/Oncology [facility] [place] [address] [place] [address] Susie Epstein MD [address] [place] [address] Malignant melanoma of face (HCC)*; Encounter for [...] BEDTIME 90 Tablet 3 08/13/2022 Active Ipratropium Retsof 0.03 % Nasal Solution (Atrovent) ADMINISTER 2 [...] fasting glucose 04/11/201404/2020 Metabolon Quantose IR Resear Study*[id number] 01/20/2014 04/10/2014 Overview: METABOLON QUANTOSE IR STUDY. PROJECT: #[id number], TICKET TAKER: Tarun Nieto MD/ Dejuan Magdaleno MD. SUMMARY: The Use of a Novel Insulin Resistance Test as a Monitoring Indicator of Glycemic Control in Prediabetics and Diabetics treated with metformin combined with lifestyle intervention. CONTACTS: During normal business hours, contact Lily Burgos RN, BSN at ; after hours Vp Lab via the [facility] bead forming machine operator Impotence of organic origin 01/09/2014 08/31/2019 Epididymitis 01/09/2014 03/09/2017 Elevated prostate specific antigen (PSA) 01/09/2014 01/09/2014 Dry eye syndrome 12/31/2012 08/31/2019 Low testosterone 12/31/2012 08/31/2019 Family history of GI malignancy 07/09/2012 08/31/2019 Other specified hypothyroidism 08/19/2006 08/31/2019 ADVANCE DIRECTIVE INFORMATION 2006 08/31/2019 Overview: Information given to patient. DISC DIS [id number]-[id number] - bulge L3-4, L4-5 02/21/2002 08/31/2019 FAM [...] 21 Q uit: 10/04/1990 Smokeless Tobacco: Never Tobacco Cessation:Counseling Given: [...] Sign Reading Time Taken Comments Blood Pressure 138/82 06/02/2023 9:20 AM EST Pulse 68 06/02/2023 9:20 AM EST Temperature 36.6 C (97.8 F) 06/02/2023 9:20 AM ES T Respiratory Rate - - Oxygen Saturation 95% 06/02/2023 9:20 AM EST Inhaled Oxygen Concentration - - Weight 93.3 kg (205 lb 11.2 oz) 06/02/2023 9:20 AM EST Height - - Body Mass Index 29.51 04/22/2023 8:11 AM EDT documented in this encounter Progress Notes * Susie Epstein MD - 06/02/2023 9:40 AM EST Outpatient Consult Note Data Source: Patient, Epic record. Data Source: Patient, [facility] record. 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 Patient underwent wide excision and sentinel lymph node biopsy. Lymph node was negative for metastasis disease, stage pT4a a pN0, stage IIB Current Treatment: On adjuvant Keytruda Previous Treatment: Status post post wide surgical [...] above the subcutis. The invasive component is [place] level V. One dermal mitoses per square [...] from the prior specimen from this anatomiclocation ([id number]) as well as information from the current specimen if possible. Certain parameters such as Breslow depth, Apolinar level, and ulceration are often difficult or impossible to accurately determine in excision specimens when a prior sampling/biopsy has been performed. The prior reported T category of pT4a remains unchanged from the original synoptic report for case [id number]. Junctional melanocytic hyperplasia (of sun damaged skin) [...] of Lymph Nodes Examined 1 Number of [place] Nodes Examined 1 PATHOLOGIC STAGE CLASSIFICATION (pTNM, AJCC 8th Edition) pT Category pT4a pN Category pN0 PET scan was done on 03/03/2023 which shows no evidence of metastatic disease and there was a calcified 3.6 x 2.7 cm left calvarial mass consistent with meningioma. Interval History: He received total of 3 cycles of Keytruda with good tolerance and without any significant side effects toxicity. He denies any headache, dizziness, blurred vision, chest pain, shortness breath palpitation, nausea, vomiting, fever, night sweats, new skin lesion. LABS/IMAGING: Results for orders placed or performed in visit on 06/02/23 COMPREHENSIVE METABOLIC PANEL Result Value Ref Range BUN 10 6 - 20 mg/dL Creatinine 0.8 0.6 - 1.2 mg/dL Estimated Glomerular Filtration Rate >90 >=60 mL/min Sodium 136 135 - 146 mmol/L Potassium 4.5 3.5 - 5.1 mmol/L Chloride 100 98 - 107 mmol/L CO2 26 22 - 32 mmol/L Anion Gap 10 7 - 15 mmol/L Glucose 137 (H) 70 - 120 mg/dL Albumin 4.4 3.8 - 5.0 g/dL AST 23 10 - 50 U/L Alkaline Phosphatase 114 35 - 130 U/L Bilirubin, Total 0.8 <=1.2 mg/dL Calcium 9.8 8.4 - 10.2 mg/dL Protein 7.5 6.0 - 8.3 g/dL ALT 14 10 - 50 U/L CBC Result Value Ref Range WBC 8.03 4.00 - 10.80 K/uL RBC 4.48 4.50 - 5.25 M/uL HGB 14.1 14.0 - 16.8 g/dL HCT 42.6 40.0 - 48.4 % MCV 95.1 82.0 - 99.5 fL MCH 31.5 27.0 - 34.0 pg MCHC 33.1 32.0 - 36.0 g/dL RDW 13.7 11.5 - 15.5 % PLT 195 140 - 400 K/uL MPV 10.1 6.6 - 11.1 fL DIFFERENTIAL, AUTOMATED Result Value Ref Range WBC 8.03 4.00 - 10.80 K/uL Neutrophils % 44.1 40.0 - 75.0 % Lymphocytes % 41.2 18.0 - 42.0 % Monocytes % 14.6 (H) 1.0 - 11.0 % Eosinophils % 0.0 0.0 - 6.0 % Basophils % 0.1 0.0 - 2.0 % Absolute Neutrophils 3.54 1.80 - 7.70 K/uL Absolute Lymphocytes 3.31 1.00 - 4.80 K/ul Absolute Monocytes 1.17 (H) 0.00 - 1.10 K/uL Absolute Eosinophils [...] dysphagia, no muscosal ulceration, or sores noted. Scar on the left side of the face is healed Cardiovascular: No chest pain, ANDERSON, or palpitations [...] 200 MG PO CAPS Take by mouth. Loratadine 10 MG Oral Capsule Take 1 [...] by mouth every 6 hours as needed. metFORMIN HCl ER 500 MG Oral Tablet Extended Release 24 Hour (Glucophage XR) Take 2 Tablets by mouth at bedtime. 180 Tablet 3 Atorvastatin Calcium 80 MG Oral Tablet (Lipitor) TAKE 1 TABLET BY MOUTH AT BEDTIME 90 Tablet 3 Ipratropium Retsof 0.03 % Nasal Solution (Atrovent) ADMINISTER 2 SPRAYS IN EACH NOSTRIL TWO TIMES DAILY 30 mL 3 Omeprazole 20 MG Oral Capsule Delayed Release (PriLOSEC) Take 1 Capsule by mouth in the morning. 90Capsule 3 Terbinafine HCl 1 % External Cream (LamISIL AT ATHLETE'S FOOT) Apply to the affected area of the feet twice daily for 14-28 days. 42 g 5 Levothyroxine Sodium 88 MCG Oral Tablet (Levoxyl) Take 1 Tablet by mouth daily first thing in the morning. (at least 30 min prior to breakfast or other meds) 90 Tablet 3 Lisinopril 2.5 MG Oral Tablet (Prinivil) Take 1 Tablet by mouth in the morning. 30 Tablet 11 Apixaban 5 MG Oral Tablet (Eliquis) Take 1 Tablet by mouth in the morning and 1 Tablet before bedtime. 180 Tablet 3 Lidocaine-Prilocaine 2.5-2.5 % External Cream (Emla) APPLY TO SKIN OVER MEDIPORT & COVER 1HR PRIOR TO ACCESSING. 30 g 1 Metoprolol Succinate ER 25 MG Oral Tablet Extended Release 24 Hour (toPROL XL) TAKE 1 TABLET BY MOUTH EVERY MORNING 90 Tablet 3 No current facility-administered medications for this visit. Social History Tobacco Use Smoking status: Former Packs/day: 1.50 Years: 21.00 Additional pack years: 0.00 Total pack years: 31.50 Types: Cigarettes Quit date: 10/04/1990 Years since quittin.6 Smokeless tobacco: Never Vaping Use Vaping Use: Never used Substance Use Topics Alcohol use: Yes Alcohol/week: 28.0 standard drinks of alcohol Types: 28 12 oz of beer per week Comment: 4 beer/day Drug use: No Review of patient's allergies indicates: Allergen Reactions Sulfamethoxazole-Trimethoprim Fever and Other (Please comment) PHYSICAL EXAMINATION: General Appearance: Healthy appearing patient in no acute distress BP 138/82 (BP Site: Right Arm, BP Position: Sitting, BP Cuff Size: Regular) | Pulse 68 | Temp 36.6 C (97.8 F) | Wt 93.3 kg (205 lb 11.2 oz) | SpO2 95% | BMI 29.51 kg/m | BSA 2.15 m Vitals reviewed. HEENT: No oral or [...] Extremeties: Good pulses bilaterally, no peripheral edema. Skin: Normal skin tone with no rash, petechiae, ecchymosis noted. Musculoskeletal: No pain on palpation over bony prominence, no edema, no evidence of gout, no jointor bony deformity ASSESSMENT: 73-year-old male with past medical history [...] with meningioma. Currently patient is receiving adjuvant Keytruda with good tolerance and without any significant side effects toxicity. Physical examination is remarkable and the scar on the left side of the face iswell healed. All his blood counts are in acceptable range. Discussed with the patient and about the diagnosis and reviewed all the available blood test result with him. PLAN: Continue Keytruda on every 3 weeks basis for total of 1 year. He will return to clinic for follow-up in 6 weeks. The patient voiced understanding [...] documented in this encounter Nursing Notes * Zion Magdaleno, LEOBARDO ASSIST - 06/02/2023 9:21 AM EST Patient identified by name and date of . Do you have any concerns about pain management for today's visit? No Living Will or Advance Directive for Health Care as noted on problem list. My [facility] is a way you can talk to your provider online through e-mail. Would you like to sign up? I can activate it for you? ALREADY ACTIVE BP 138/82 (BP Site: Right Arm, BP Position: Sitting, BP Cuff Size: Regular) | Pulse 68 | Temp 36.6 C (97.8 F) | Wt 93.3 kg (205 lb 11.2 oz) | SpO2 95% | BMI 29.51 kg/m | BSA 2.15 m Patient was instructed to not get up [...] Description 06/23/2023 9:30 AM EST Laboratory Laboratory [facility] [place] [address] [place] [id number] Danielle, Lab Scen[address] [place] [address] 06/23/2023 10:30 AM EST Hem/Onc Treatment Hematology/Oncology Treatment, [place] [address] [place] [address] Danielle, Chair 7 Hem Onc Scene [address] [place] [address] [address] 07/14/2023 8:30 AM EST [facility] [place] [address] [place] [id number] Danielle, Lab Scenery [address] [place] [address] [address] 07/14/2023 9:00 AM EST Office Visit Hematology/Oncology [facility] [place] [address] [place] [address] [address] Susie Epstein MD [address] [place] [address] 07/14/2023 9:30 AM EST Hem/Onc Treatment Hematology/Oncology Treatment, [place] [address] [place] [address] Park, Chair 8 Hem Onc Scenery [address] [place] [address] 08/06/2023 8:20 AM EST Office Visit Family [facility] [address] [place] [address] Carson Gallardo, [address] [place] [address] Scheduled Procedures Name Priority Associated Diagnoses Date/Ti [...] 10/08/2021, 09/17/2020 Depression Screening 03/11/2024 03/11/2023 TSH 05/12/2024 05/12/2023, 03/24, 03/27/2023, Additional history exists GFR 06/02/2024 06/02/2023, 04/23, 04/20/2023, Additional history [...] this encounter Medical Devices Implanted Type Area Survey Compiler Device Identifier Shelf Expiration Date Model / Serial / Lot Port Implant W/8f Poly Cath - [id number] Implanted:Qty : 1 on 04/22/2023 by Kaiden Armenta MD at OR [facility] Right: Chest CR BARD : PERIPHERAL VASCULAR [id number] 11/19/2024 [id number] / / [id number] documented as of this encounter Visit Diagnoses Diagnosis Malignant melanoma of face (HCC)- Primary Malignant melanoma of skin of other and unspecified parts of face Encounter for antineoplastic chemotherapy documented in this encounter Advance Directives Documents on File Type Date Recorded Patient Grain Elevator Clerk Expl anation Advance Directives and Living Will 09/07/2017 LIVING WILL Latest Code Status on File Code Status Date Activated Date Inactivated Comments Full Code 03/04/2023 7:10 AM 03/04/2023 3:47 PM Question Answer Comments Discussion of Advance Directives occurred with: Not Discussed due to patient's condition Care Teams Proofsheet Corrector Relationship Specialty Start Date End Date Carson Gallardo DO [address] [place] [address] PCP - General Family Medicine 07/18/19 documented as of this encounter"
--- OUTSIDE RECORDS SUMMARY | 2023-10-08 04:02 | External Medical Summary ---
Author Name Unknown Address Unknown Organization [id number]:[facility] - [address] [facility] [address] Laboratory Report Ordering Provider Test Date Status MCCRAYSADECHRIS 05/12/2023 09:45:28 Final Observation Date Value Abnormality Reference (Units ) Status TSH 05/12/2023 09:45:28 1.44 0.27-4.20 (uIU/mL) Final Performing Location [facility] - [address] [facility] [address]
--- OUTSIDE RECORDS SUMMARY | 2023-10-08 04:02 | External Medical Summary | Summary of Care ---
Author Name Unknown Organization [facility] Address [address] [place] [address] Phone [phone] Care Team Providers Care Shellfish Processing Machine Tender Name Role Phone Carson Gallardo Primary Care Provider Reason for Visit * Reason Comments eRx-Medication Refill Encounter Details Date Type Department Care Team (Late st Contact Info) Description 05/09/2023 Refill Cardiology, [facility] [address] [facility] [place] [address] Angely Cowan DO [address] [facility] [address] Typical atrial flutter (HCC); HTN, goal below 140/90 Allergies Active Allergy Reactions Criticality Noted Date Comments Sulfamethoxazole-Trimethop rim Fever,Other (Please comment) 09/13/2019 documented as of this encounter (statuses as of 05/11/2023) Medications Medication Sig Dispensed Refills Start Date [...] BEDTIME 90 Tablet 3 08/13/2022 Active Ipratropium [place] 0.03 % Nasal Solution (Atrovent) ADMINISTER 2 [...] EVERY MORNING 90 Tablet 3 05/11/2023 Active Metoprolol Succinate ER 25 MG Oral Tablet Extended Release 24 Hour (toPROL XL)Indications:in am Take 1 Tablet (25 mg) by mouth in the morning. 90 Tablet 3 05/23/2022 3 Discontinued documented as of this encounter (statuses as of 05/11/2023) Active Problems Problem Noted Date Diagnosed Date [...] as of this encounter (statuses as of 05/11/2023) Resolved Problems Problem Noted Date Diagnosed Date Resolved Date Family history of malignant neoplasm of prostate 03/11/2018 08/31/2019 Impaired fasting glucose 04/11/201404/2020 Metabolon Quantose IR [facility] Study*[id number] 01/20/2014 04/10/2014 Overview: METABOLON QUANTOSE IR STUDY. PROJECT: #[id number], ROUTE SALES SPECIALIST: Tarun Nieto MD/ Dejuan Magdaleno MD. SUMMARY: The Use of a Novel Insulin Resistance Test as a Monitoring Indicator of Glycemic Control in Prediabetics and Diabetics treated with metformin combined with lifestyle intervention. CONTACTS: During normal business hours, contact Liyl Burgos RN, BSN at ; after hours Compliance Representative Dealer via the [facility] hospital wastewater operator Impotence of organic origin 01/09/2014 08/31/2019 Epididymitis 01/09/2014 03/09/2017 Elevated prostate specific antigen (PSA) 01/09/2014 01/09/2014 Dry eye syndrome 12/31/2012 08/31/2019 Low testosterone 12/31/2012 08/31/2019 Family history of GI malignancy 07/09/2012 08/31/2019 Other specified hypothyroidism 08/19/2006 08/31/2019 ADVANCE DIRECTIVE INFORMATION 2006 08/31/2019 Overview: Information given to patient. DISC DIS OVF-GOX-KEWUEF - bulge L3-4, L4-5 02/21/2002 08/31/2019 FAM HX-DIABETES MELLITUS - Dad 01/31/1999 08/31/2019 Mixed dyslipidemia 02/01/1998 9 Overview: Per Lipid Taxonomy. Idiopathic urticaria 020 documented as of this encounter (statuses as of 05/11/2023) Immunizations Name Administration Dates Next Due COVID-19 [...] (Prevnar) 02/26/2016 Pneumococcal Polysaccharide PPV23 (Pneumovax) 09/05/2016 SEASONAL INFLUENZA, PF, 6 M & Above, IM , (FLULAVAL or FLUZONE) 03/11/2018 Seasonal Influenza Virus Vac cine, Unspecified Formulation 03/18/2021,03/27/2020,03/14/2019,03/11,03/09/2017,02/26/2016,03/21/2014 ,03/31/2013,05/05/2012,04/03/2011,06/22,06/04/2009,05/19/2008 Seasonal Influenza, Quadriva lent Hd (Fluzone Hd) [...] Telephone Encounter - Angely Cowan DO - 05/11/2023 9:27 AM ESTSigned Prescriptions: Disp Refills Metoprolol Succinate ER 25 MG Oral Tablet *90 Tab*3 Sig: TAKE 1 TABLET BY MOUTH EVERY MORNING Authorizing Provider: ANGELY COWAN * Telephone Encounter - Fozia Carter LPN - 05/09/2023 9:45 AM ESTPending Prescriptions: Disp Refills Metoprolol Succinate ER 25 MG Oral Tablet *90 Tab*3 Sig: TAKE 1 TABLET BY MOUTH EVERY MORNING * Telephone Encounter - Fozia Carter LPN - 05/09/2023 9:45 AM EST Pending Prescriptions: Disp Refills Metoprolol Succinate ER 25 MG Oral Tablet*90 Tab*3 Sig: TAKE 1 TABLET BY MOUTH EVERY MORNING documented in this encounter Plan of Treatment Upcoming Encounters Date Type Department Care Team (Late st Contact Info) Description 05/12/2023 9:30 AM EST Laboratory Laboratory [facility] [address] [facility] [place], [place] [id number] Ben Santos [facility] [address] [place], [place] [address] 05/12/2023 10:30 AM EST Hem/Onc Treatment Hematology/Oncology Treatment, [place] [address] [place], [place] [address] Danielle, Chair 1 Hem Onc [place] [address] [address] [place], [place] [address] 08/06/2023 8:20 AM EST Office Visit Family [facility] [address] [place] [address] Carson Gallardo, [address] [place] [address] Scheduled Procedures Name Priority Associated Diagnoses Date/Ti me COLONOSCOPY FLEXIBLE PROXIMAL DIAGNOSTIC Recall History of colon polyps ESOPHAGOGASTRODUODENOSCOPY ( EGD), FLEXIBLE, TRANSORAL, DIAGNOSTIC Recall Lipoma of other specified sites Health Maintenance Due Date Last Done Comments Hepatitis B (1 of 3 - Risk 3-dose series) 2011 HbA1c 06/12/2023 12/11/2022, 1212/2021, 11/26/2021, Additional history exists Diabetic Eye Exam 11/12/2023 11/11/2022, , 10/25/2021, Additional history exists Albumin/Creatinine Ratio 12/12/2023 023, 05/28/2022, 11/26/2021, Additional history exists Diabetic Foot Exam 12/19/2023 12/18/2022, 0 10/08/2021, 09/17/2020 Depression Screening 03/11/2024 03/11/2023 GFR 04/20/2024 04/20/2023, 100 11/2022, 03/19/2023, Additional history exists TSH 04/20/2024 04/20/2023, 100 11/2022, 03/19/2023, Additional history exists COLONOSCOPY-EVERY 5 YRS AGES [...] this encounter Medical Devices Implanted Type Area Nurse Practical Device Identifier Shelf Expiration Date Model / Serial / Lot Port Implant W/8f Poly Cath - [id number] Implanted:Qty : 1 on 04/22/2023 by Kaiden Armenta MD at [facility] Right: Chest CR BARD : PERIPHERAL VASCULAR [id number] 11/19/2024 [id number] / / [id number] documented as of this encounter Visit Diagnoses Diagnosis Typical atrial flutter (HCC) Atrial flutter HTN, goal below 140/90 Unspecified essential hypertension documented in this encounter Advance Directives Documents on File Type Date Recorded Patient Team Driver Expl anation Advance Directives and Living Will 09/07/2017 LIVING WILL Latest Code Status on File Code Status Date Activated Date Inactivated Comments Full Code 03/04/2023 7:10 AM 03/04/2023 3:47 PM Question Answer Comments Discussion of Advance Directives occurred with: Not Discussed due to patient's condition Care Teams Shellfish Processing Machine Tender Relationship Specialty Start Date End Date Carson Gallardo DO [address] [place] [address] PCP - General Family Medicine 07/18/19 documented as of this encounter
--- OUTSIDE RECORDS SUMMARY | 2023-10-08 04:02 | External Medical Summary ---
Author Name Unknown Address Unknown Organization K09:[facility] [place] [address] Laboratory Report Ordering Provider Test Date Status CHRIS MCCRAY 05/12/2023 09:45:28 Final Observation Date Value Abnormality Reference (Units ) Status WBC, Total 05/12/2023 09:45:28 6.65 4.00-10.8 0 (K/uL) Final RBC 05/12/2023 09:45:28 4.28 4.50-5.25 (M/uL) Final Hemoglobin 05/12/2023 09:45:28 13.4 Below low normal 14 .0-16.8 (g/dL) Final HCT 05/12/2023 09:45:28 40.4 40.0-48.4 (%) Final MCV 05/12/2023 09:45:28 94.4 82.0-99.5 (fL) Final MCH 05/12/2023 09:45:28 31.3 27.0-34.0 (pg) Final MCHC 05/12/2023 09:45:28 33.2 32.0-36.0 (g/dL) Final RDW 05/12/2023 09:45:28 13.1 11.5-15.5 (%) Final Platelets 05/12/2023 09:45:28 223 140-400 (K /uL) Final MPV 05/12/2023 09:45:28 9.6 6.6-11.1 ( fL) Final Performing Location [facility] [place] [address]
--- OUTSIDE RECORDS SUMMARY | 2023-10-08 04:02 | External Medical Summary ---
Author Name Unknown Address Unknown Organization K09:[facility] [place] [address] Laboratory Report Ordering Provider Test Date Status CHRIS MCCRAY 05/12/2023 09:45:28 Final Observation Date Value Abnormality Reference (Units ) Status SYNC LEUKOCYTES IN BLOOD BY AUTOMATED COUNT 05/12/2023 09:45:28 6.65 4.00-10.80 (K/uL) Final Segs 05/12/2023 09:45:28 42.1 40.0-75.0 (%) Final Lymphs % 05/12/2023 09:45:28 43.9 Above high normal 18.0-42.0 (%) Final Monos 05/12/2023 09:45:28 13.8 Above high normal 1.0-11.0 (%) Final Eosinophils 05/12/2023 09:45:28 0.0 0.0-6.0 (%) Final Basos 05/12/2023 09:45:28 0.2 0.0-2.0 (%) Final Absolute Segs 05/12/2023 09:45:28 2.80 1.80-7.70 (K/uL) Final Lymphs, absolute 05/12/2023 09:45:28 2.92 1.00-4.80 (K/ul) Final Monos, Abs 05/12/2023 09:45:28 0.92 0.00-1.10 (K/uL) Final Eos, Abs 05/12/2023 09:45:28 0.00 0.00-0.70 (K/uL) Final Basos, Abs 05/12/2023 09:45:28 0.01 0.00-0.20 (K/uL) Final Performing Location [facility] [place] [address]
--- OUTSIDE RECORDS SUMMARY | 2023-10-08 04:02 | External Medical Summary | Summary of Care ---
Author Name Unknown Organization [facility] Address [address] [place] [address] Phone [phone] Care Team Providers Care Inside Barrel Lathe Operator Name Role Phone Carson Gallardo Primary Care Provider Reason for Visit * Reason Comments Chemotherapy C3D1 Keytruda * Episode Based Medications (Routine) - Authorized Specialty Diagnoses / Procedures Referred By Contyakelin t Referred To Contact Diagnoses Malignant melanoma of face (HCC) Procedures [place] INJ PEMBROLIZUMAB Susie Epstein MD [address] [place] [address] Anc Hem/Onc [facility] DEPT CLOSED - 05/05/23 200 [facility] [place] [address] Referral ID Status Reason Start Date Expiration Date V isits Requested Visits Authorized [id number] Authorized 03/17/2023 06/21/2099 99 99 Encounter Details Date Type Department Care Team (Latest Contact Info) Description 05/12/2023 10:30 AM EST Hem/Onc Treatment Hematology/Oncolog y Treatment, [place] [address] [place] [address] Daniel[place], Chair 1 Hem Onc Scenery [address] [place] [address] Malignant melanoma of face (HCC)*; Encounter for antineoplastic chemotherapy Allergies Active Allergy Reactions Criticality Noted Date Comments Sulfamethoxazole-Trimethop rim Fever,Other (Please comment) 09/13/2019 documented as of this encounter (statuses as of 05/12/2023) Medications Medication Sig Dispensed Refills Start Date [...] BEDTIME 90 Tablet 3 08/13/2022 Active Ipratropium [place] 0.03 % Nasal Solution (Atrovent) ADMINISTER 2 [...] as of this encounter (statuses as of 05/12/2023) Active Problems Problem Noted Date Diagnosed Date [...] as of this encounter (statuses as of 05/12/2023) Resolved Problems Problem Noted Date Diagnosed Date Resolved Date Family history of malignant neoplasm of prostate 03/11/2018 08/31/2019 Impaired fasting glucose 04/11/201404/2020 Metabolon Quantose IR [facility] Study*[id number] 01/20/2014 04/10/2014 Overview: METABOLON QUANTOSE IR STUDY. PROJECT: #[id number], ALFALFA DEHYDRATOR OPERATOR: Tarun Nieto MD/ Dejuan Magdaleno MD. SUMMARY: The Use of a Novel Insulin Resistance Test as a Monitoring Indicator of Glycemic Control in Prediabetics and Diabetics treated with metformin combined with lifestyle intervention. CONTACTS: During normal business hours, contact Lily Burgos RN, BSN at ; after hours Smoking Pipe Mounter via the [facility] hospital heavy equipment operator/paver Impotence of organic origin 01/09/2014 08/31/2019 Epididymitis 01/09/2014 03/09/2017 Elevated prostate specific antigen (PSA) 01/09/2014 01/09/2014 Dry eye syndrome 12/31/2012 08/31/2019 Low testosterone 12/31/2012 08/31/2019 Family history of GI malignancy 07/09/2012 08/31/2019 Other specified hypothyroidism 08/19/2006 08/31/2019 ADVANCE DIRECTIVE INFORMATION 2006 08/31/2019 Overview: Information given to patient. DISC DIS BIT-BWA-SBWQXB - bulge L3-4, L4-5 02/21/2002 08/31/2019 FAM HX-DIABETES MELLITUS - Dad 01/31/1999 08/31/2019 Mixed dyslipidemia 02/01/1998 9 Overview: Per Lipid Taxonomy. Idiopathic urticaria 020 documented as of this encounter (statuses as of 05/12/2023) Immunizations Name Administration Dates Next Due COVID-19 [...] Sign Reading Time Taken Comments Blood Pressure 151/79 05/12/2023 10:15 AM EST Pulse 72 05/12/2023 10:15 AM EST Temperature 36.4 C (97.5 F) 05/12/2023 10:[address] Respiratory Rate 18 05/12/2023 10:15 AM EST Oxygen Saturation 96% 05/12/2023 10:15 AM EST Inhaled Oxygen Concentration - - Weight 92.6 kg (204 lb 3.2 oz) 05/12/2023 10:15 AM EST Height - - Body Mass Index 29.3 04/22/2023 8:11 AM EDT documented in this encounter Nursing Notes * Rajani Huynh RN - 05/12/2023 11:54 AM EST Chair 7 Chemo agents Keytruda Appetite good Nausea/Vomiting no Diarrhea no Constipation no Mucositis no Fatigue no Bleeding no Infection no Rash no Numbness tingling no Pain no Radiation no ABN Labs WNL for treatment Alt in Tx: no Return in 3 weeks VAD accessed without difficulty, good blood return noted, flushed with NSS and fluids infusing. Safety and Risk for Injury Patient will remain free from injury. Ensure appropriate safety devices are available. Provide and maintain safe environment. Functional status at today's visit: Fully active, [...] well and was discharged in stable condition. Coverage by Fanny Junior LPN. documented in this encounter Plan of Treatment Upcoming Encounters Date Type Department Care Team (Late st Contact Info) Description 06/02/2023 8:40 AM EST Laboratory Laboratory Scenery [place] [address] [place] [id number] [place], Lab Scenery [address] [facility] [place] [address] 06/02/2023 9:15 AM EST Office Visit Hematology/Oncology [facility] [place] [address] [place] [address] Susie Epstein MD [address] [place] [address] 06/02/2023 9:45 AM EST Hem/Onc Treatment Hematology/Oncology [facility], [place] [address] [place] [address] Danielle, Chair 10 Hem Onc Scenery [address] [place] [address] 08/06/2023 8:20 AM EST Office Visit Family [facility] [address] [place] [address] Carson Gallardo DO [address] [place] [address] Scheduled Procedures Name Priority Associated Diagnoses Date/Ti me COLONOSCOPY FLEXIBLE PROXIMAL DIAGNOSTIC Recall History of colon polyps ESOPHAGOGASTRODUODENOSCOPY ( EGD), FLEXIBLE, TRANSORAL, DIAGNOSTIC Recall Lipoma of other specified sites Health Maintenance Due Date Last Done Comments Hepatitis B (1 of 3 - Risk 3-dose series) 2011 HbA1c 06/12/2023 12/11/2022, 12/0 12/2021, 11/26/2021, Additional history exists Diabetic Eye Exam 11/12/2023 11/11/2022, , 10/25/2021, Additional history exists Albumin/Creatinine Ratio 12/12/2023 023, 05/28/2022, 11/26/2021, Additional history exists Diabetic Foot Exam 12/19/2023 12/18/2022, 0 10/08/2021, 09/17/2020 Depression Screening 03/11/2024 03/11/2023 TSH 04/20/2024 04/20/2023, 1011/2022, 03/19/2023, Additional history exists GFR 05/12/2024 05/12/2023, 03/24, 03/27/2023, Additional history [...] this encounter Medical Devices Implanted Type Area Conventional Machinist Device Identifier Shelf Expiration Date Model / Serial / Lot Port Implant W/8f Poly Cath - [id number] Implanted:Qty : 1 on 04/22/2023 by Kaiden Armenta MD at OR [facility] Right: Chest CR BARD : PERIPHERAL VASCULAR [id number] 11/19/2024 [id number] / / [id number] documented as of this encounter Visit Diagnoses [...] ONCE PRN Other, Hypersensitivity Reaction, Starting on Thu05/12/23 at 1033, Until Thu05/13/23 at 1032, For 24 hours EPINEPHrine 1 MG/ML inj 0.3 mg 0.3 mg, Intramuscular, ONCE PRN Other, Hypersensitivity Reaction or Anaphylaxis, Starting on Thu05/12/23 at 1033, Until Thu05/13/23 at 1032, For 24 hours hEParin 100 UNIT/ML Lock Flush inj 500 Units 500 Units (5 mL), IV Lock, PRN Other, IV Flush, Starting on Thu05/12/23 at 1033, Until Thu05/13/23 at 1032, For 24 hours, Do not flush if lock, PICC, or central line not in place; IV infusing or unable to flush. Given 05/12/2023 11:09 AM EST 500 Units Hydrocortisone Sod Suc (PF) (Solu-Cortef) inj 100 mg 100 mg, IV Push, ONCE PRN Other, Hypersensitivity Reaction, Starting on Thu05/12/23 at 1033, Until Thu05/13/23 at 1032, For 24 hours NSS infusion Intravenous, at 50 mL/hr, PRN, Starting on Thu05/12/23 at 1145, Until Discontinued, KVO Start Infusion 05/12/2023 10:30 AM EST 50 mL/hr oxygen GAS Inhalation, OXYGEN, First dose on Thu05/12/23 at 1115, Until Discontinued, Device/Managed by: Low Flow Device, Goal SPO2 (%): 91-95, Starting Device: Nasal Cannula, Inital Flow Rate (LPM): 2, Lowest Support: Nasal [...] Push, PRN Other, IV Flush, Starting on Thu05/12/23 at 1033, Until Thu05/13/23 at 1032, For 24 hours, Do not flush if lock, PICC, or central line not in place; IV infusing or unable to flush. Given 05/12/2023 11:09 AM EST 10 mL Inactive Administered Medications - up to 3 most recent administrations Medication Order MAR Action Action Date Dose Rate Site Pembrolizumab (Keytruda) 200 mg in NSS 100 mL infusion 200 mg, IV Piggyback, ONCE, 1 dose, On Thu05/12/23 at 1215, Administer over 30 Minutes, Infuse through 0.2 micron filter. Start Infusion 05/12/2023 10:36 AM EST 200 mg 200 mL/hr documented in this encounter Advance Directives Documents on File Type Date Recorded Patient Tub Chucker Expl anation Advance Directives and Living Will 09/07/2017 LIVING WILL Latest Code Status on File Code Status Date Activated Date Inactivated Comments Full Code 03/04/2023 7:10 AM 03/04/2023 3:47 PM Question Answer Comments Discussion of Advance Directives occurred with: Not Discussed due to patient's condition Care Teams Inside Barrel Lathe Operator Relationship Specialty Start Date End Date Carson Gallardo DO [address] [place] [address] PCP - General Family Medicine 07/18/19 documented as of this encounter
--- OUTSIDE RECORDS SUMMARY | 2023-10-08 04:02 | External Medical Summary ---
Author Name Unknown Address Unknown Organization K09:[facility] - [address] [place] [address] Laboratory Report Ordering Provider Test Date Status CHRIS MCCRAY 05/12/2023 09:45:28 Final Observation Date Value Abnormality Reference (Units ) Status BUN 05/12/2023 09:45:28 10 6-20 (mg/dL) Final Creatinine 05/12/2023 09:45:28 0.8 0.6-1.2 (mg/dL) Final Glomerular filtration rate/1.73 sq M.predicted [Volume Rate/Area] in Serum, Plasma or Blood by Creatinine-based formula (CKD-EPI) 05/12/2023 09:45:28 >90 >=60 (mL/min) Final eGFR is calculated based on the CKD-EPI 2020 equation SODIUM 05/12/2023 09:45:28 132 Below low normal 135 -146 (mmol/L) Final Potassium 05/12/2023 09:45:28 4.4 3.5-5.1 (m mol/L) Final Cl 05/12/2023 09:45:28 97 Below low normal 98- 107 (mmol/L) Final CO2 05/12/2023 09:45:28 25 22-32 (mmo l/L) Final Anion gap 05/12/2023 09:45:28 10 7-15 (mmol /L) Final Glucose 05/12/2023 09:45:28 218 Above high normal 70 -120 (mg/dL) Final Albumin 05/12/2023 09:45:28 4.2 3.8-5.0 (g /dL) Final AST (Aspartate aminotransferase) 05/12/2023 09:45:28 27 10-50 (U/L) Fin al Alk Phos 05/12/2023 09:45:28 114 35-130 (U/ L) Final Bilirubin, Total 05/12/2023 09:45:28 0.9 <=1 .2 (mg/dL) Final Calcium 05/12/2023 09:45:28 9.9 8.4-10.2 ( mg/dL) Final Protein 05/12/2023 09:45:28 7.4 6.0-8.3 (g /dL) Final ALT (Alanine aminotransferase) 05/12/2023 09:45:28 23 10-50 (U/L) Rodrick crocker Performing Location [facility] - [address] [place] [address]
--- OUTSIDE RECORDS SUMMARY | 2023-10-08 04:02 | External Medical Summary | Summary of Care ---
Author Name Unknown Organization [facility] Address [address] [place] [address] Phone [phone] Care Team Providers Care Diesel Mechanic Farm Name Role Phone Carson Gallardo Primary Care Provider Reason for Visit * Reason Comments Outpatient Testing Encounter Details Date Type Department Care Team (Late st Contact Info) Description 05/12/2023 9:30 AM EST Laboratory Laboratory Scenery [place] [address] [place], [place] [phone] [place], Lab Scenery [address] [place] [address] Malignant melanoma of face (HCC); Encounter for long-term (current) use of medications; Type 2 diabetes mellitus with hemoglobin A1c goal of less than 8.0% (HCC) Allergies Active Allergy Reactions Criticality Noted [...] BEDTIME 90 Tablet 3 08/13/2022 Active Ipratropium [place] 0.03 % Nasal Solution (Atrovent) ADMINISTER 2 [...] fasting glucose 04/11/201404/2020 Metabolon Quantose IR Resear Study*[id number] 01/20/2014 04/10/2014 Overview: METABOLON QUANTOSE IR STUDY. PROJECT: #[id number], DENTAL AMALGAM PROCESSOR: Tarun Nieto MD/ Dejuan Magdaleno MD. SUMMARY: The Use of a Novel Insulin Resistance Test as a Monitoring Indicator of Glycemic Control in Prediabetics and Diabetics treated with metformin combined with lifestyle intervention. CONTACTS: During normal business hours, contact Lily Burgos RN, BSN at ; after hours Vending Machine Collector via the [facility] crew leader/control room operator Impotence of organic origin 01/09/2014 08/31/2019 Epididymitis 01/09/2014 03/09/2017 Elevated prostate specific antigen (PSA) 01/09/2014 01/09/2014 Dry eye syndrome 12/31/2012 08/31/2019 Low testosterone 12/31/2012 08/31/2019 Family history of GI malignancy 07/09/2012 08/31/2019 Other specified hypothyroidism 08/19/2006 08/31/2019 ADVANCE DIRECTIVE INFORMATION 2006 08/31/2019 Overview: Information given to patient. DISC DIS IPW-AKT-IGNXPY - bulge L3-4, L4-5 02/21/2002 08/31/2019 FAM [...] Team (Late st Contact Info) Description 05/12/2023 10:30 AM EST Hem/Onc Treatment Hematology/Oncology Treatment, [place] [address] [place] [address] [place], Chair 1 Hem Onc Scenery [address] [place] [address] Arrived 08/06/2023 8:20 AM EST Office Visit Family Practice [facility] [address] [address] Carson Gallardodevorah, DO [address] [place] [address] Pending Results Name Type Priority Associated Diagnoses Date /Time COMPREHENSIVE METABOLIC PANEL Lab STAT Malignant melanoma of face (HCC) 05/12/2023 9:45 AM EST TSH WITH FREE T4 IF INDICATED Lab STAT Malignant melanoma of face (HCC) Encounter for long-term (current) use of medications 05/12/2023 9:45 AM EST HEMOGLOBIN A1C Lab Routine Type 2 diabetes mellitus with hemoglobin A1c goal of less than 8.0% (HCC) 05/12/2023 9:45 AM EST Scheduled Procedures Name Priority Associated Diagnoses Date/Ti me COLONOSCOPY FLEXIBLE PROXIMAL DIAGNOSTIC Recall History of colon polyps ESOPHAGOGASTRODUODENOSCOPY ( EGD), FLEXIBLE, TRANSORAL, DIAGNOSTIC Recall Lipoma of other specified sites Health Maintenance Due Date Last Done Comments Hepatitis B (1 of 3 - Risk 3-dose series) 2011 HbA1c 06/12/2023 12/11/2022, 120 12/2021, 11/26/2021, Additional history exists Diabetic Eye Exam 11/12/2023 11/11/2022, , 10/25/2021, Additional history exists Albumin/Creatinine Ratio 12/12/20232 023, 05/28/2022, 11/26/2021, Additional history exists Diabetic [...] this encounter Medical Devices Implanted Type Area Patternmaker Wood Device Identifier Shelf Expiration Date Model / Serial / Lot Port Implant W/8f Poly Cath - [id number] Implanted:Qty : 1 on 04/22/2023 by Kaiden Armenta MD at OR [facility] Right: Chest CR BARD : PERIPHERAL VASCULAR [id number] 11/19/2024 [id number] / / [id number] documented as of this encounter Procedures Procedure Name Priority Date/Time Associated Diagnosis Comments DIFFERENTIAL, AUTOMATED STAT 05/12/2023 9:45 AM EST Malignant melanoma of face (HCC) CBC STAT 05/12/2023 9:45 AM EST Malignant melanoma of face (HCC) CBC STAT 05/12/2023 9:45 AM EST Malignant melanoma of face (HCC) documented in this encounter Results * (ABNORMAL) DIFFERENTIAL, AUTOMATED (05/12/2023 9:45 AM EST) WBC 6.65 4.00 - 10.80 K/uL 05/12/2023 9:52 AM [facility]-02 Neutrophils % 42.1 40.0 - 75.0 % 05/12/2023 9:52 AM [facility] 56- Lymphocytes % 43.9(H) 18.0 - 42.0 % 05/12/2023 9:52 AM [facility] 56- Monocytes % 13.8(H) 1.0 - 11.0 % 05/12/2023 9:52 AM [facility] 56- Eosinophils % 0.0 0.0 - 6.0 % 05/12/2023 9:52 AM [facility] 56- Basophils % 0.2 0.0 - 2.0 % 05/12/2023 9:52 AM [facility] 56- Absolute Neutrophils 2.80 1.80 - 7.70 K/uL 05/12/2023 9:52 AM [facility] 56- Absolute Lymphocytes 2.92 1.00 - 4.80 K/ul 05/12/2023 9:52 AM [facility] 56- Absolute Monocytes 0.92 0.00 - 1.10 K/uL 05/12/2023 9:52 AM [facility] 56- Absolute Eosinophils 0.00 0.00 - 0.70 K/uL 05/12/2023 9:52 AM [facility] 56-02 Absolute Basophils 0.01 0.00 - 0.20 K/uL 05/12/2023 9:52 AM [facility] 56- Blood Venous blood specimen / Unknown Venipuncture / Unknown 05/12/2023 9:45 AM EST 05/12/2023 9:45 AM EST Susie Epstein MD LAB BLOOD [facility]- [address] [place] [address] * (ABNORMAL) CBC (05/12/2023 9:45 AM EST) [facility] WBC 6.65 4.00 - 10.80 K/uL 05/12/2023 9:52 AM [facility] 56- RBC 4.28 4.50 - 5.25 M/uL 05/12/2023 9:52 AM [facility] 56- HGB 13.4(L) 14.0 - 16.8 g/dL 05/12/2023 9:52 AM [facility] 56- HCT 40.4 40.0 - 48.4 % 05/12/2023 9:52 AM [facility] 56- MCV 94.4 82.0 - 99.5 fL 05/12/2023 9:52 AM [facility] 56- MCH 31.3 27.0 - 34.0 pg 05/12/2023 9:52 AM [facility] 56 MCHC 33.2 32.0 - 36.0 g/dL 05/12/2023 9:52 AM [facility] 56- RDW 13.1 11.5 - 15.5 % 05/12/2023 9:52 AM [facility] 56 PLT 223 140 - 400 K/uL 05/12/2023 9:52 AM [facility] 56 MPV 9.6 6.6 - 11.1 fL 05/12/2023 9:52 AM [facility] 56 Blood Venous blood specimen / Unknown Venipuncture / Unknown 05/12/2023 9:45 AM EST 05/12/2023 9:45 AM EST Susie Epstein MD LAB BLOOD [facility] [address] [place] [address] documented in this encounter Visit Diagnoses Diagnosis Malignant melanoma of face (HCC) Malignant melanoma of skin of other and unspecified parts of face Encounter for long-term (current) use of medications Encounter for long-term (current) use of other medications Type 2 diabetes mellitus with hemoglobin A1c goal of less than 8.0% (HCC) documented in this encounter Advance Directives Documents on File Type Date Recorded Patient Aircraft Captain Expl anation Advance Directives and Living Will 09/07/2017 LIVING WILL Latest Code Status on File Code Status Date Activated Date Inactivated Comments Full Code 03/04/2023 7:10 AM 03/04/2023 3:47 PM Question Answer Comments Discussion of Advance Directives occurred with: Not Discussed due to patient's condition Care Teams Diesel Mechanic Farm Relationship Specialty Start Date End Date Carson Gallardo DO [address] [place] [address] PCP - General Family Medicine 07/18/19 documented as of this encounter
--- OUTSIDE RECORDS SUMMARY | 2023-10-08 04:02 | External Medical Summary ---
Author Name Unknown Address Unknown Organization K01:[facility] - [address] [facility] [address] Laboratory Report Ordering Provider Test Date Status MARLO BERNABE 05/12/2023 09:45:28 Final Observation Date Value Abnormality Reference (Units ) Status HbA1C 05/12/2023 09:45:28 6.3 Above high normal 4. 0-5.6 (%) Final The use of HbA1c to monitor glycemic status is based on normal hemoglobin and HbA composition. This test should not be used in patients with abnormal hemoglobin that affects the half life of the red blood cell or the in vivo glycation rates. Glucose, estimated average 05/12/2023 09:45:28 134 Above high normal <126 (mg/dL) Rodrick crocker Performing Location [facility] - [address] [facility] [address]
--- OUTSIDE RECORDS SUMMARY | 2023-10-08 04:03 | External Medical Summary | Summary of Care ---
Author Name Unknown Organization [facility] Address [address] [place] [address] Phone [phone] Care Team Providers Care Painter And Body Work Name Role Phone Carson Gallardo DO Primary Care Provider Reason for Visit * Reason Comments Immunizations Encounter Details Date Type Department Care Team (Late st Contact Info) Description 05/01/2023 Abstract Family Practice [facility] [address] [facility] [address] Carson Gallardo DO [address] [facility] [address] Allergies Active Allergy Reactions Criticality Noted Date Comments Sulfamethoxazole-Trimethop rim Fever,Other (Please comment) 09/13/2019 documented as of this encounter (statuses as of 05/01/2023) Medications Medication Sig Dispensed Refills Start Date [...] every 6 hours as needed. 0 Active Metoprolol Succinate ER 25 MG Oral Tablet Extended Release 24 Hour (toPROL XL)Indications:in am Take 1 Tablet (25 mg) by mouth in the morning. 90 Tablet 3 05/23/2022 Active metFORMIN HCl ER 500 MG Oral Tablet Extended Release 24 Hour (Glucophage XR) Take 2 Tablets by mouth at bedtime. 180 Tablet 3 07/15/2022 Active Atorvastatin Calcium 80 MG Oral Tablet (Lipitor) TAKE 1 TABLET BY MOUTH AT BEDTIME 90 Tablet 3 08/13/2022 Active Ipratropium [place] 0.03 % Nasal Solution (Atrovent) ADMINISTER 2 [...] before bedtime. 180 Tablet 3 04/30/2023 Active documented as of this encounter (statuses as of 05/01/2023) Active Problems Problem Noted Date Diagnosed Date [...] as of this encounter (statuses as of 05/01/2023) Resolved Problems Problem Noted Date Diagnosed Date Resolved Date Family history of malignant neoplasm of prostate 03/11/2018 08/31/2019 Impaired fasting glucose 04/11/201404/2020 Metabolon Quantose IR Resear Study*[id number] 01/20/2014 04/10/2014 Overview: METABOLON QUANTOSE IR STUDY. PROJECT: #[id number], BLIND EYELETTER: Tarun Nieto MD/ Dejuan Magdaleno MD. SUMMARY: The Use of a Novel Insulin Resistance Test as a Monitoring Indicator of Glycemic Control in Prediabetics and Diabetics treated with metformin combined with lifestyle intervention. CONTACTS: During normal business hours, contact Lily Burgos RN, BSN at ; after hours Fixed Assets Accountant via the [facility] reducing system operator Impotence of organic origin 01/09/2014 08/31/2019 Epididymitis 01/09/2014 03/09/2017 Elevated prostate specific antigen (PSA) 01/09/2014 01/09/2014 Dry eye syndrome 12/31/2012 08/31/2019 Low testosterone 12/31/2012 08/31/2019 Family history of GI malignancy 07/09/2012 08/31/2019 Other specified hypothyroidism 08/19/2006 08/31/2019 ADVANCE DIRECTIVE INFORMATION 2006 08/31/2019 Overview: Information given to patient. DISC DIS [id number] - bulge L3-4, L4-5 02/21/2002 08/31/2019 FAM HX-DIABETES MELLITUS - Dad 01/31/1999 08/31/2019 Mixed dyslipidemia 02/01/1998 9 Overview: Per Lipid Taxonomy. Idiopathic urticaria 020 documented as of this encounter (statuses as of 05/01/2023) Immunizations Name Administration Dates Next Due COVID-19 [...] Description 05/12/2023 9:30 AM EST Laboratory Laboratory [facility] [place] [address] [place] [address] Danielle, Lab [address] [place] [address] 05/12/2023 10:30 AM EST Hem/Onc Treatment Hematology/Oncology Treatment, [place] [address] [place] [address] Danielle, Chair 1 Hem Onc Scenery [address] [facility] [place] [address] 08/06/2023 8:20 AM EST Office Visit Family [facility] [address] [address] Carson Gallardo, [address] [address] Scheduled Procedures Name Priority Associated Diagnoses Date/Ti me COLONOSCOPY FLEXIBLE PROXIMAL DIAGNOSTIC Recall History of colon polyps ESOPHAGOGASTRODUODENOSCOPY ( EGD), FLEXIBLE, TRANSORAL, DIAGNOSTIC Recall Lipoma of other specified sites Health Maintenance Due Date Last Done Comments Hepatitis B (1 of 3 - Risk 3-dose series) 2011 Diabetic Eye Exam 04/26/2022 04/26/2021 Influenza Vaccine (FLU shot) (#1) 2023 04/08/2022, 03/18/2021, 03/27/2020, Additional history exists HbA1c 06/12/2023 12/11/2022, 120 12/2021, 11/26/2021, Additional history exists Albumin/Creatinine Ratio 12/12/2023 023, 05/28/2022, 11/26/2021, Additional history exists Diabetic Foot Exam 12/19/2023 12/18/2022, 0 10/08/2021, 09/17/2020 Depression Screening 03/11/2024 03/11/2023 GFR 04/20/2024 04/20/2023, 10/0 11/2022, 03/19/2023, Additional history exists TSH 04/20/2024 04/20/2023, 10/0 11/2022, 03/19/2023, Additional history exists COLONOSCOPY-EVERY 5 [...] Completed 04/30/2023, 09/2021, 11/11/2021, Additional history exists GARDASIL-HPV IMMUNIZATION SERIES Aged Out No longer eligible based on patient's age to complete this topic MENINGOCOCCAL (MENACTRA/MENVEO) Aged Out No longer eligible based on patient's age to complete this topic documented as of this encounter Medical Devices Implanted Type Area Sales Analyst Device Identifier Shelf Expiration Date Model / Serial / Lot Port Implant W/8f Poly Cath - [id number] Implanted:Qty : 1 on 04/22/2023 by Kaiden Armenta MD at [facility] Right: Chest CR BARD : PERIPHERAL VASCULAR [id number] 11/19/2024 [id number] / / [id number] documented as of this encounter Advance Directives Documents on File Type Date Recorded Patient Agriscience Instructor Expl anation Advance Directives and Living Will 09/07/2017 LIVING WILL Latest Code Status on File Code Status Date Activated Date Inactivated Comments Full Code 03/04/2023 7:10 AM 03/04/2023 3:47 PM Question Answer Comments Discussion of Advance Directives occurred with: Not Discussed due to patient's condition Care Teams Painter And Body Work Relationship Specialty Start Date End Date Carson Gallardo DO [address] [address] PCP - General Family Medicine 07/18/19 documented as of this encounter
--- OUTSIDE RECORDS SUMMARY | 2023-10-08 04:03 | External Medical Summary | Summary of Care ---
Author Name Unknown Organization [facility] Address [address] [place] [address] Phone [phone] Care Team Providers Care Author Agent Name Role Phone Carson Gallardo Primary Care Provider Reason for Visit * Reason Onset Date Comments Test Results 04/20/2023 Unexpected or In determinate Result Encounter Details Date Type Department Care Team (Late st Contact Info) Description 04/20/2023 Telephone Laboratory, [place] [address] [place] [address] Susie Epstein MD [address] [place] [address] Test Results (Unexpected or Indeterminate ... Allergies Active Allergy Reactions Criticality Noted Date Comments Sulfamethoxazole-Trimethop rim Fever,Other (Please comment) 09/13/2019 documented as of this encounter (statuses as of 04/21/2023) Medications Medication Sig Dispensed Refills Start Date [...] every 6 hours as needed. 0 Active Eliquis 5 MG Oral Tablet (Apixaban)Indicatio ns:Typical atrial flutter (HCC),HTN, goal below 140/90 TAKE 1 TABLET BY MOUTH TWO TIMES DAILY 180 Tablet 3 04/21/2022 Active Metoprolol Succinate ER 25 MG Oral [...] BEDTIME 90 Tablet 3 08/13/2022 Active Ipratropium [place] 0.03 % Nasal Solution (Atrovent) ADMINISTER 2 [...] the morning. 30 Tablet 11 04/13/2023 Active documented as of this encounter (statuses as of 04/21/2023) Active Problems Problem Noted Date Diagnosed Date [...] as of this encounter (statuses as of 04/21/2023) Resolved Problems Problem Noted Date Diagnosed Date Resolved Date Family history of malignant neoplasm of prostate 03/11/2018 08/31/2019 Impaired fasting glucose 04/11/201404/2020 Metabolon Quantose IR [facility] Study*[id number] 01/20/2014 04/10/2014 Overview: METABOLON QUANTOSE IR STUDY. PROJECT: #[id number], HORSE RACE TIMER: Tarun Nieto MD/ Dejuan Magdaleno MD. SUMMARY: The Use of a Novel Insulin Resistance Test as a Monitoring Indicator of Glycemic Control in Prediabetics and Diabetics treated with metformin combined with lifestyle intervention. CONTACTS: During normal business hours, contact Lily Burgos RN, BSN at ; after hours Obstetrics Tech via the [facility] press operator assistant Impotence of organic origin 01/09/2014 08/31/2019 Epididymitis 01/09/2014 03/09/2017 Elevated prostate specific antigen (PSA) 01/09/2014 01/09/2014 Dry eye syndrome 12/31/2012 08/31/2019 Low testosterone 12/31/2012 08/31/2019 Family history of GI malignancy 07/09/2012 08/31/2019 Other specified hypothyroidism 08/19/2006 08/31/2019 ADVANCE DIRECTIVE INFORMATION 2006 08/31/2019 Overview: Information given to patient. DISC DIS [id number] - bulge L3-4, L4-5 02/21/2002 08/31/2019 FAM HX-DIABETES MELLITUS - Dad 01/31/1999 08/31/2019 Mixed dyslipidemia 02/01/1998 9 Overview: Per Lipid Taxonomy. Idiopathic urticaria 020 documented as of this encounter (statuses as of 04/21/2023) Immunizations Name Administration Dates Next Due COVID-19 mRNA, LNP-s, No Pre serve, 2-Dose Series (Moderna) 04/18/2021,08/23/2020,07/26/2020 COVID-19, mRNA, LNP-s, PF, B ooster, 100mcg/0.5mg [...] encounter Miscellaneous Notes * Telephone Encounter - Kody Cloud OSA - 04/20/2023 9:22 PM EDT Hello- The radiologist discovered an unexpected or indeterminate finding on Dylan Owen ([id number]) andasks that you review the following report. Study Type:MRI BRAIN W WO CONTRAST Date of Study: 04/18/2023 IMPRESSION: 1. Stable 36 x 29 x 43 mm extra-axial lesion overlying left lateral frontal lobe compared with 02/2023 PET/CT, most consistent with meningioma. 2. 4 mm jdmu-fj-mxaah midline shift at septum pellucidum, unchanged. 3. Left caudate head remote lacunar infarct. 4. Chronic brain parenchymal volume loss. Please respond to this encounter to acknowledge receipt of this message and take responsibility to ensure this report is reviewed. Thank you, ANYI Gaytan Client Service Rep [facility] [place] documented in this encounter Plan of Treatment Upcoming Encounters Date Type Department Care Team (Latest Contact Info) Description 04/22/2023 9:00 AM EDT Hospital Encounter OR [facility], Operating Room, [facility] - 4th Floor [address] [facility] [place] [address] Kaiden Armenta MD [address] [place] [address] 04/22/2023 9:00 AM EDT - 04/22/2023 9:55 AM EDT Surgery OR [facility], Operating Room, [facility] - 4th Floor [address] [facility] [place] [address] Kaiden Armenta MD [address] [place] [address] INSERT TUNNELED CENTRAL VENOUS ACCESS WITH SUBQ PORT 05/12/2023 9:30 AM EST Laboratory Laboratory [address] [place] [address] [place] [id number] Danielle, Lab Scenery [address] [facility] [place] [address] 05/12/2023 10:30 AM EST [facility] [address] [place] [address] Danielle, Chair 1 Hem Onc Scenery [address] [facility] [place] [address] 08/06/2023 8:20 AM EST Office Visit [facility] [address] [place] [address] Carson Gallardo DO [address] [place] [address] Scheduled Procedures Name Priority Associated Diagnoses Date/Ti me INSERT TUNNELED CENTRAL VENO US ACCESS WITH SUBQ PORT Malignant melanoma of face (HCC) 04/22/2023 9:00 AM EDT COLONOSCOPY FLEXIBLE PROXIMA L DIAGNOSTIC Recall History of colon polyps ESOPHAGOGASTRODUODENOSCOPY ( EGD), FLEXIBLE, TRANSORAL, DIAGNOSTIC Recall Lipoma of other specified sites Health Maintenance Due Date Last Done Comments Hepatitis B (1 of 3 - Risk 3-dose series) 2011 Diabetic Eye Exam 04/26/2022 04/26/2021 COVID-19 Vaccine (2022-24 season) 2023 03/25/2022, 11/11/2021, 04/18/2021, Additional history exists Influenza Vaccine (FLU shot) (#1) 2023 04/08/2022, 03/18/2021, 03/27/2020, Additional history exists HbA1c 06/12/2023 12/11/2022, 12/0 12/2021, 11/26/2021, Additional history exists Albumin/Creatinine Ratio [...] Discontinued 07/30/2022, 07/30/2022, 03/08/2019, Additional history exists GARDASIL-HPV IMMUNIZATION SERIES Aged Out No longer eligible based on patient's age to complete this topic MENINGOCOCCAL (MENACTRA/MENVEO) Aged Out No longer eligible based on patient's age to complete this topic documented as of this encounter Medical Devices Not on filedocumented as of this encounter Advance Directives Documents on File Type Date Recorded Patient Layboy Operator Expl anation Advance Directives and Living Will 09/07/2017 LIVING WILL Latest Code Status on File Code Status Date Activated Date Inactivated Comments Full Code 03/04/2023 7:10 AM 03/04/2023 3:47 PM Question Answer Comments Discussion of Advance Directives occurred with: Not Discussed due to patient's condition Care Teams Author Agent Relationship Specialty Start Date End Date Carson Gallardo DO [address] [place] [address] PCP - General Family Medicine 07/18/19 documented as of this encounter
--- OUTSIDE RECORDS SUMMARY | 2023-10-08 04:03 | External Medical Summary | Summary of Care ---
Author Name Unknown Organization [facility] Address [address] [place] [address] Phone [phone] Care Team Providers Care Woodwinds Teacher Name Role Phone Carson Gallardo Primary Care Provider Reason for Visit * Reason Onset Date Comments Test Results 04/20/2023 Unexpected or In determinate Result Encounter Details Date Type Department Care Team (Late st Contact Info) Description 04/20/2023 Telephone Laboratory, [place] [address] [place] [address] Susie Epstein MD [address] [place] [address] Test Results (Unexpected or Indeterminate ... Allergies [...] BEDTIME 90 Tablet 3 08/13/2022 Active Ipratropium [place] 0.03 % Nasal Solution (Atrovent) ADMINISTER 2 [...] Impaired fasting glucose 04/11/201404/2020 Metabolon Quantose IR [facility] Study*[id number] 01/20/2014 04/10/2014 Overview: METABOLON QUANTOSE IR STUDY. PROJECT: #[id number], CANVAS WORKER: Tarun Nieto MD/ Dejuan Magdaleno MD. SUMMARY: The Use of a Novel Insulin Resistance Test as a Monitoring Indicator of Glycemic Control in Prediabetics and Diabetics treated with metformin combined with lifestyle intervention. CONTACTS: During normal business hours, contact Lily Burgos RN, BSN at ; after hours Testing Analyst via the [facility] scribing machine operator Impotence of organic origin 01/09/2014 08/31/2019 Epididymitis 01/09/2014 03/09/2017 Elevated prostate specific antigen (PSA) 01/09/2014 01/09/2014 Dry eye syndrome 12/31/2012 08/31/2019 Low testosterone 12/31/2012 08/31/2019 Family history of GI malignancy 07/09/2012 08/31/2019 Other specified hypothyroidism 08/19/2006 08/31/2019 ADVANCE DIRECTIVE INFORMATION 2006 08/31/2019 Overview: Information given to patient. DISC DIS [id number] - bulge L3-4, L4-5 02/21/2002 08/31/2019 FAM [...] Seasonal Influenza Virus Vac cine, Unspecified Formulation 03/18/2021,03/27/2020,03/14/2019,02/21,03/09/2017,02/26/2016,03/21/20 14,03/31/2013,05/05/2012,04/03/2011,0 07/03/2010,06/04/2009,05/19/2008 Seasonal Influenza, Quadriva lent Hd (Fluzone Hd) [...] encounter Miscellaneous Notes * Telephone Encounter - Bam Shannon MD - 04/21/2023 4:35 PM EDT Noted, * Telephone Encounter - Kody Cloud OSA - 04/20/2023 9:22 PM EDT Hello- The radiologist discovered an unexpected or indeterminate finding on Dylan Owen ([id number]) andasks that you review the following report. Study Type:MRI BRAIN W WO CONTRAST Date of Study: 04/18/2023 IMPRESSION: 1. Stable 36 x 29 x 43 mm extra-axial lesion overlying left lateral frontal lobe compared with 02/2023 PET/CT, most consistent with meningioma. 2. 4 mm stjr-ji-rkmzx midline shift at septum pellucidum, unchanged. 3. Left caudate head remote lacunar infarct. 4. Chronic brain parenchymal volume loss. Please respond to this encounter to acknowledge receipt of this message and take responsibility to ensure this report is reviewed. Thank you, Kody Cloud, ANYI Client Service Rep [facility] documented in this encounter Plan of Treatment Upcoming Encounters Date Type Department Care Team (Latest Contact Info) Description 04/22/2023 9:00 AM EDT Hospital Encounter OR [facility], Operating Room, [facility] - 4th Floor [address] [place] [address] Kaiden Armenta MD [address] [place] [address] 04/22/2023 9:00 AM EDT - 04/22/2023 9:55 AM EDT Surgery OR [facility], Operating Room, [facility] - 4th Floor [address] [place] [address] Kaiden Armenta MD [address] [place] [address] INSERT TUNNELED CENTRAL VENOUS ACCESS WITH SUBQ PORT 05/12/2023 9:30 AM EST Laboratory Laboratory [facility] [address] [facility] [place] [id number] Danielle, Lab [facility] [address] [facility] [place] [address] 05/12/2023 10:30 AM EST Hem/Onc Treatment Hematology/Oncology Treatment, [place] [address] [place] [address] Danielle, Chair 1 Hem Onc Scenery [address] [facility] [place] [address] 08/06/2023 8:20 AM EST Office Visit [facility] [address] [place] [id number] Carson Gallardo, [address] [place] [address] Scheduled Procedures Name Priority Associated Diagnoses Date/Ti [...] Diabetic Eye Exam 04/26/2022 04/26/2021 COVID-19 Vaccine ( season) 2023 03/25/2022, 11/11/2021, 04/18/2021, Additional history [...] Documents on File Type Date Recorded Patient Cupola Tender Helper Expl anation Advance Directives and Living Will 09/07/2017 LIVING WILL Latest Code Status on File Code Status Date Activated Date Inactivated Comments Full Code 03/04/2023 7:10 AM 03/04/2023 3:47 PM Question Answer Comments Discussion of Advance Directives occurred with: Not Discussed due to patient's condition Care Teams Woodwinds Teacher Relationship Specialty Start Date End Date Carson Gallardo DO [address] [place] [address] PCP - General Family Medicine 07/18/19 documented as of this encounter
--- OUTSIDE RECORDS SUMMARY | 2023-10-08 04:03 | External Medical Summary ---
Author Name Unknown Address Unknown Organization : Laboratory Report Ordering Provider Test Date Status GREGG LARIOS 04/22/2023 08:29:06 Final Observation Date Value Abnormality Reference (Units ) Status Glucose Point of Care 04/22/2023 08:29:06 118 70-120 (mg/dL) Final Performing Location
--- OUTSIDE RECORDS SUMMARY | 2023-10-08 04:03 | External Medical Summary | Summary of Care ---
Author Name Unknown Organization [facility] Address [address] [place] [address] Phone [phone] Care Team Providers Care Repairer Cylinder Heads Name Role Phone Carson Gallardo Primary Care Provider Reason for Visit * Reason Onset Date Comments Information 04/27/2023 Encounter Details Date Type Department Care Team (Late st Contact Info) Description 04/27/2023 Telephone Hematology/Oncology Treatment, [place] [address] [place], [place] [phone] Susie Epstein MD [address] [place] [address] Information Allergies Active Allergy Reactions Criticality Noted Date Comments Sulfamethoxazole-Trimethop rim Fever,Other (Please comment) 09/13/2019 documented as of this encounter (statuses as of 04/27/2023) Medications Medication Sig Dispensed Refills Start Date [...] BEDTIME 90 Tablet 3 08/13/2022 Active Ipratropium [place] 0.03 % Nasal Solution (Atrovent) ADMINISTER 2 [...] as of this encounter (statuses as of 04/27/2023) Active Problems Problem Noted Date Diagnosed Date [...] as of this encounter (statuses as of 04/27/2023) Resolved Problems Problem Noted Date Diagnosed Date Resolved Date Family history of malignant neoplasm of prostate 03/11/2018 08/31/2019 Impaired fasting glucose 04/11/201404/2020 Metabolon Quantose IR Resear Study*[id number] 01/20/2014 04/10/2014 Overview: METABOLON QUANTOSE IR STUDY. PROJECT: #[id number], EQUINE BREEDER: Tarun Nieto MD/ Dejuan Magdaleno MD. SUMMARY: The Use of a Novel Insulin Resistance Test as a Monitoring Indicator of Glycemic Control in Prediabetics and Diabetics treated with metformin combined with lifestyle intervention. CONTACTS: During normal business hours, contact Lily Burgos RN, BSN at ; after hours Technical Account Representative via the [facility] chisel mortiser operator Impotence of organic origin 01/09/2014 08/31/2019 Epididymitis 01/09/2014 03/09/2017 Elevated prostate specific antigen (PSA) 01/09/2014 01/09/2014 Dry eye syndrome 12/31/2012 08/31/2019 Low testosterone 12/31/2012 08/31/2019 Family history of GI malignancy 07/09/2012 08/31/2019 Other specified hypothyroidism 08/19/2006 08/31/2019 ADVANCE DIRECTIVE INFORMATION 2006 08/31/2019 Overview: Information given to patient. DISC DIS [id number]-BEU-[id number] - bulge L3-4, L4-5 02/21/2002 08/31/2019 FAM HX-DIABETES MELLITUS - Dad 01/31/1999 08/31/2019 Mixed dyslipidemia 02/01/1998200 9 Overview: Per Lipid Taxonomy. Idiopathic urticaria 020 documented as of this encounter (statuses as of 04/27/2023) Immunizations Name Administration Dates Next Due COVID-19 [...] Telephone Encounter - Anjana Soto RN - 04/27/2023 1:02 PM EST Received call from patients . Patient has been having normal BM's, but this morning had a formed stool, then a loose stool, then 2 liquid stools. He took an imodium, no diarrhea since. He is having cramping lower abdominal pain and feels bloated- states that usually he can push on an umbilical hernia he has, right now bloating is to the point he can't push it. He notes that he had chili Saturd ay night and salad last night, so thinks this is food related. Reviewed imodium instructions, BRAT diet, and to monitor, advised patients to let us know if diarrhea continued. She verbalized understanding. Lucian: RONI documented in this encounter Plan of Treatment Upcoming Encounters Date Type Department Care Team (Late st Contact Info) Description 05/12/2023 9:30 AM EST Laboratory Laboratory [place] [address] [place] [address] [address] [facility] [place] [address] 05/12/2023 10:30 AM EST Hem/Onc Treatment Hematology/Oncology Treatment, [place] [address] [place] [address] Danielle, Chair 1 Hem Onc Scenery [address] [facility] [place] [address] 08/06/2023 8:20 AM EST Office Visit Family [facility] [address] [place] [address] Carson Gallardo, [address] [place] [address] Scheduled Procedures Name Priority Associated Diagnoses Date/Ti [...] 03/19/2023, Additional history exists TSH 04/20/2024 04/20/2023, 11/2022, 03/19/2023, Additional history exists COLONOSCOPY-EVERY 5 [...] this encounter Medical Devices Implanted Type Area Plating Stripper Device Identifier Shelf Expiration Date Model / Serial / Lot Port Implant W/8f Poly Cath - [id number] Implanted:Qty : 1 on 04/22/2023 by Kaiden Armenta MD at [facility] Right: Chest CR BARD : PERIPHERAL VASCULAR [id number] 11/19/2024 [id number] / / [id number] documented as of this encounter Advance Directives Documents on File Type Date Recorded Patient Drop Forge Hand Expl anation Advance Directives and Living Will 09/07/2017 LIVING WILL Latest Code Status on File Code Status Date Activated Date Inactivated Comments Full Code 03/04/2023 7:10 AM 03/04/2023 3:47 PM Question Answer Comments Discussion of Advance Directives occurred with: Not Discussed due to patient's condition Care Teams Repairer Cylinder Heads Relationship Specialty Start Date End Date Carson Gallardo DO [address] [place] [address] PCP - General Family Medicine 07/18/19 documented as of this encounter
--- OUTSIDE RECORDS SUMMARY | 2023-10-08 04:03 | External Medical Summary | Summary of Care ---
Author Name Unknown Organization [facility] Address [address] [place] [address] Phone [phone] Care Team Providers Care Management Development Specialist Name Role Phone Carson Gallardo Primary Care Provider Reason for Visit * Reason Onset Date Comments Test Results 04/20/2023 Unexpected or In determinate Result Encounter Details Date Type Department Care Team (Late st Contact Info) Description 04/20/2023 Telephone Laboratory, [place] [address] [place] [address] Susie Epstein MD [address] [place] [address] Test Results (Unexpected or Indeterminate ... Allergies Active Allergy Reactions Criticality Noted Date Comments Sulfamethoxazole-Trimethop rim Fever,Other (Please comment) 09/13/2019 documented as of this encounter (statuses as of 04/20/2023) Medications Medication Sig Dispensed Refills Start Date [...] BEDTIME 90 Tablet 3 08/13/2022 Active Ipratropium [place] [employer] 0.03 % Nasal Solution (Atrovent) ADMINISTER 2 [...] as of this encounter (statuses as of 04/20/2023) Active Problems Problem Noted Date Diagnosed Date [...] as of this encounter (statuses as of 04/20/2023) Resolved Problems Problem Noted Date Diagnosed Date Resolved Date Family history of malignant neoplasm of prostate 03/11/2018 08/31/2019 Impaired fasting glucose 04/11/201404/2020 Metabolon Quantose IR [facility] Study*[id number] 01/20/2014 04/10/2014 Overview: METABOLON QUANTOSE IR STUDY. PROJECT: #[id number], TICKET SALES AGENT: Tarun Nieto MD/ Dejuan Magdaleno MD. SUMMARY: The Use of a Novel Insulin Resistance Test as a Monitoring Indicator of Glycemic Control in Prediabetics and Diabetics treated with metformin combined with lifestyle intervention. CONTACTS: During normal business hours, contact Lily Burgos RN, BSN at ; after hours Cost Controller via the [facility] gun sealing machine operator Impotence of organic origin 01/09/2014 08/31/2019 Epididymitis 01/09/2014 03/09/2017 Elevated prostate specific antigen (PSA) 01/09/2014 01/09/2014 Dry eye syndrome 12/31/2012 08/31/2019 Low testosterone 12/31/2012 08/31/2019 Family history of GI malignancy 07/09/2012 08/31/2019 Other specified hypothyroidism 08/19/2006 08/31/2019 ADVANCE DIRECTIVE INFORMATION 2006 08/31/2019 Overview: Information given to patient. DISC DIS [id number] - bulge L3-4, L4-5 02/21/2002 08/31/2019 FAM HX-DIABETES MELLITUS - Dad 01/31/1999 08/31/2019 Mixed dyslipidemia 02/01/1998 9 Overview: Per Lipid Taxonomy. Idiopathic urticaria 020 documented as of this encounter (statuses as of 04/20/2023) Immunizations Name Administration Dates Next Due COVID-19 [...] unexpected or indeterminate finding on Dylan Owen ([id number]) andasks that you review the following report. Study Type:MRI BRAIN W WO CONTRAST Date of Study: 04/18/2023 IMPRESSION: 1. Stable 36 x 29 x 43 mm extra-axial lesion overlying left lateral frontal lobe compared with 02/2023 PET/CT, most consistent with meningioma. 2. 4 mm [id number]-zk-[id number] midline shift at septum pellucidum, unchanged. 3. Left caudate head remote lacunar infarct. 4. Chronic brain parenchymal volume loss. Please respond to this encounter to acknowledge receipt of this message and take responsibility to ensure this report is reviewed. Thank you, ANYI Gaytan Client Service Rep [facility] [place] documented in this encounter Plan of Treatment Upcoming Encounters Date Type Department Care Team (Latest Contact Info) Description 04/21/2023 9:00 AM EDT Office Visit Hematology/Oncology [facility] [address] [place] [address] [facility] Gonzalez CR[facility] [address] [facility] [address] 04/21/2023 9:30 AM EDT Hem/Onc Treatment Hematology/Oncology Treatment, [place] [address] [facility] [place] [address] Danielle, Chair 6 Hem Onc Scenery 200 [facility] [place] [address] 04/22/2023 9:00 AM EDT Hospital Encounter OR [facility], Operating Room, [facility] - 4th Floor [address] [place] [address] Kaiden Armenta MD [address] [place] [address] 04/22/2023 9:00 AM EDT - 04/22/2023 9:55 AM EDT Surgery OR [facility], Operating Room, [facility] - 4th Floor [address] [place] [address] Kaiden Armenta MD [address] [place] [address] INSERT TUNNELED CENTRAL VENOUS ACCESS WITH SUBQ PORT 08/06/2023 8:20 AM EST Office Visit Family [facility] [address] [place] [address] Carson Gallardo DO [address] [place] [address] Scheduled Procedures Name Priority Associated Diagnoses Date/Ti [...] Documents on File Type Date Recorded Patient Cigar Bander Hand Expl anation Advance Directives and Living Will 09/07/2017 LIVING WILL Latest Code Status on File Code Status Date Activated Date Inactivated Comments Full Code 03/04/2023 7:10 AM 03/04/2023 3:47 PM Question Answer Comments Discussion of Advance Directives occurred with: Not Discussed due to patient's condition Care Teams Management Development Specialist Relationship Specialty Start Date End Date Carson Gallardo DO [address] [place] [address] PCP - General Family Medicine 07/18/19 documented as of this encounter
--- OUTSIDE RECORDS SUMMARY | 2023-10-08 04:03 | External Medical Summary | Summary of Care ---
Author Name Unknown Organization [facility] Address [address] [place] [address] Phone [phone] Care Team Providers Care Shipper/Receiver Name Role Phone Carson Gallardo Primary Care Provider Reason for Visit * Reason Onset Date Comments Information 04/27/2023 Encounter Details Date Type Department Care Team (Late st Contact Info) Description 04/27/2023 Telephone Hematology/Oncology Treatment, [place] [address] [place], [place] [phone] Susie Epstein MD [address] [place] [address] Information Allergies Active Allergy Reactions Criticality Noted Date Comments Sulfamethoxazole-Trimethop rim Fever,Other (Please comment) 09/13/2019 documented as of this encounter (statuses as of 04/28/2023) Medications Medication Sig Dispensed Refills Start Date [...] BEDTIME 90 Tablet 3 08/13/2022 Active Ipratropium [place] 0.03 % Nasal Solution (Atrovent) ADMINISTER 2 [...] as of this encounter (statuses as of 04/28/2023) Active Problems Problem Noted Date Diagnosed Date [...] as of this encounter (statuses as of 04/28/2023) Resolved Problems Problem Noted Date Diagnosed Date Resolved Date Family history of malignant neoplasm of prostate 03/11/2018 08/31/2019 Impaired fasting glucose 04/11/201404/2020 Metabolon Quantose IR [facility] Study*[id number] 01/20/2014 04/10/2014 Overview: METABOLON QUANTOSE IR STUDY. PROJECT: #[id number], DIRECTIONAL DRILLER: Tarun Nieto MD/ Dejuan Magdaleno MD. SUMMARY: The Use of a Novel Insulin Resistance Test as a Monitoring Indicator of Glycemic Control in Prediabetics and Diabetics treated with metformin combined with lifestyle intervention. CONTACTS: During normal business hours, contact Lily Burgos RN, BSN at ; after hours Epic Trainer via the [facility] hospital glue spreading machine operator Impotence of organic origin 01/09/2014 08/31/2019 Epididymitis 01/09/2014 03/09/2017 Elevated prostate specific antigen (PSA) 01/09/2014 01/09/2014 Dry eye syndrome 12/31/2012 08/31/2019 Low testosterone 12/31/2012 08/31/2019 Family history of GI malignancy 07/09/2012 08/31/2019 Other specified hypothyroidism 08/19/2006 08/31/2019 ADVANCE DIRECTIVE INFORMATION 2006 08/31/2019 Overview: Information given to patient. DISC DIS [id number] - bulge L3-4, L4-5 02/21/2002 08/31/2019 FAM HX-DIABETES MELLITUS - Dad 01/31/1999 08/31/2019 Mixed dyslipidemia 02/01/1998200 9 Overview: Per Lipid Taxonomy. Idiopathic urticaria 020 documented as of this encounter (statuses as of 04/28/2023) Immunizations Name Administration Dates Next Due COVID-19 [...] Telephone Encounter - Anjana Soto RN - 04/28/2023 8:31 AM EST Called and spoke to patient. No further diarrhea since yesterday morning, abdominal bloating has resolved as well. Patient feels well, no complaints. Advised him to call with any questions/ concerns,he verbalized understanding. * Telephone Encounter - Anjana Soto RN [...] know if diarrhea continued. She verbalized understanding. Dr Epstein: RONI documented in this encounter Plan of Treatment Upcoming Encounters Date Type Department Care Team (Late st Contact Info) Description 05/12/2023 9:30 AM EST Laboratory Laboratory [address]ery [place] [address] [place] [id number] Danielle, Lab Scenery [address] [place] [address] 05/12/2023 10:30 AM EST Hem/Onc Treatment Hematology/Oncology Treatment, [place] [address] [place] [address] Danielle, Chair 1 Hem Onc Scenery [address] [facility] [place] [address] 08/06/2023 8:20 AM EST Office Visit Family Practice [facility] [address] [place] [address] Carson Gallardo, [address] [place] [address] Scheduled Procedures Name Priority Associated Diagnoses Date/Ti [...] this encounter Medical Devices Implanted Type Area Acoustical Engineer Device Identifier Shelf Expiration Date Model / Serial / Lot Port Implant W/8f Poly Cath - [id number] Implanted:Qty : 1 on 04/22/2023 by Kaiden Armenta MD at OR [facility] Right: Chest CR BARD : PERIPHERAL VASCULAR [id number] 11/19/2024 [id number] / / [id number] documented as of this encounter Advance Directives Documents on File Type Date Recorded Patient Director Vaccine Liliana stark Advance Directives and Living Will 09/07/2017 LIVING WILL Latest Code Status on File Code Status Date Activated Date Inactivated Comments Full Code 03/04/2023 7:10 AM 03/04/2023 3:47 PM Question Answer Comments Discussion of Advance Directives occurred with: Not Discussed due to patient's condition Care Teams Shipper/Receiver Relationship Specialty Start Date End Date Carson Gallardo DO [address] [place] [address] PCP - General Family Medicine 07/18/19 documented as of this encounter
--- OUTSIDE RECORDS SUMMARY | 2023-10-08 04:03 | External Medical Summary | Summary of Care ---
Author Name Unknown Organization [facility] Address [address] [place] [address] Phone [phone] Care Team Providers Care Flaring Machine Operator Name Role Phone Carson Gallardo Primary Care Provider Reason for Visit * Reason Onset Date Comments Medication Refill 04/29/2023 Encounter Details Date Type Department Care Team (Late st Contact Info) Description 04/29/2023 Refill Cardiology, [facility] [address] [facility] [address] Angely Cowan DO [address] [facility] [place] [address] Typical atrial flutter (HCC); HTN, goal below 140/90 Allergies Active Allergy Reactions Criticality Noted Date Comments Sulfamethoxazole-Trimethop rim Fever,Other (Please comment) 09/13/2019 documented as of this encounter (statuses as of 04/30/2023) Medications Medication Sig Dispensed Refills Start Date [...] BEDTIME 90 Tablet 3 08/13/2022 Active Ipratropium [place] 0.03 % Nasal Solution (Atrovent) ADMINISTER 2 [...] before bedtime. 180 Tablet 3 04/30/2023 Active Eliquis 5 MG Oral Tablet (Apixaban)Indicat ions:Typical atrial flutter (HCC),HTN, goal below 140/90 TAKE 1 TABLET BY MOUTH TWO TIMES DAILY 180 Tablet 3 04/21/2022 3 Discontinue d(Refill) documented as of this encounter (statuses as of 04/30/2023) Active Problems Problem Noted Date Diagnosed Date [...] as of this encounter (statuses as of 04/30/2023) Resolved Problems Problem Noted Date Diagnosed Date Resolved Date Family history of malignant neoplasm of prostate 03/11/2018 08/31/2019 Impaired fasting glucose 04/11/201404/2020 Metabolon Quantose IR [facility] Study*[id number] 01/20/2014 04/10/2014 Overview: METABOLON QUANTOSE IR STUDY. PROJECT: #[id number], OPERATIONS ANALYST: Tarun Nieto MD/ Dejuan Magdaleno MD. SUMMARY: The Use of a Novel Insulin Resistance Test as a Monitoring Indicator of Glycemic Control in Prediabetics and Diabetics treated with metformin combined with lifestyle intervention. CONTACTS: During normal business hours, contact Lily Burgos, RN, BSN at ; after hours Ambulance Paramedic via the [facility] redrying machine operator Impotence of organic origin 01/09/2014 08/31/2019 Epididymitis 01/09/2014 03/09/2017 Elevated prostate specific antigen (PSA) 01/09/2014 01/09/2014 Dry eye syndrome 12/31/2012 08/31/2019 Low testosterone 12/31/2012 08/31/2019 Family history of GI malignancy 07/09/2012 08/31/2019 Other specified hypothyroidism 08/19/2006 08/31/2019 ADVANCE DIRECTIVE INFORMATION 2006 08/31/2019 Overview: Information given to patient. DISC DIS [id number] - bulge L3-4, L4-5 02/21/2002 08/31/2019 FAM HX-DIABETES MELLITUS - Dad 01/31/1999 08/31/2019 Mixed dyslipidemia 02/01/1998 9 Overview: Per Lipid Taxonomy. Idiopathic urticaria 020 documented as of this encounter (statuses as of 04/30/2023) Immunizations Name Administration Dates Next Due COVID-19 [...] Telephone Encounter - Angely Cowan DO - 04/30/2023 10:59 AM ESTSigned Prescriptions: Disp Refills Apixaban 5 MG Oral Tablet (Eliquis) 180 Ta*3 Sig: Take 1 Tablet by mouth in the morning and 1 Tablet before bedtime. Authorizing Provider: ANGELY COWAN * Telephone Encounter - Juanis Espinosa COT - 04/30/2023 9:50 AM ESTPending Prescriptions: Disp Refills Apixaban 5 MG Oral Tablet (Eliquis) 180 Ta*3 Sig: Take 1 Tablet by mouth in the morning and 1 Tablet before bedtime. * Telephone Encounter - Juanis Espinosa COT - 04/30/2023 9:49 AM EST Did you pend patient's preferred pharmacy and medication before forwarding?yes Pharmacy: [facility] [id number] [place] Pending Prescriptions: Disp Refills Apixaban 5 MG Oral Tablet (Eliquis) 180 Ta*3 Sig: Take 1 Tablet by mouth in the morning and 1 Tablet before bedtime. Last Visit: 04/13/2023 (in office), Visit date not found (telemedicine) Next Visit: Visit date not found If no future appointments scheduled, and last appointment is greater than a year ago, please schedule patient for a follow-up appointment Last date the medication was ordered: 04-21-2022 Is this request for a controlled substance?No Urine Drug Screen:No results found for this or any previous visit. Patient Phone Numbers Labs: Lab Results Component Value Date/Time CREAT 0.9 04/20/2023 09:20 AM CREAT 1.0 03/14/2020 08:17 AM POTASSIUM 4.1 04/20/2023 09:20 AM POTASSIUM 4.2 03/14/2020 08:17 AM TSH 2.00 04/20/2023 09:20 AM TSH 1.09 10/04/2018 02:32 PM LDLCALC 78 12/11/2022 08:39 AM LDLCALC 81 03/14/2020 08:17 AM LDLDIRECT NOT APPLICABLE 03/14/2020 08:17 AM LDLDIRECT 97 03/11/2018 09:19 AM ALT 31 04/20/2023 09:20 AM ALT 32 03/14/2020 08:17 AM HGBA1C 6.3 (H) 12/11/2022 08:39 AM HGBA1C 6.5 (H) 03/14/2020 08:17 AM documented in this encounter Plan of Treatment Upcoming Encounters Date Type Department Care Team (Late st Contact Info) Description 05/12/2023 9:30 AM EST Laboratory Laboratory Scenery [facility] [address] [place] [phone] Danielle, Lab Scenery [address] [place] [address] 05/12/2023 10:30 AM EST Hem/Onc Treatment Hematology/Oncology Treatment, [place] [address] [place] [address] Danielle, Chair 1 Hem Onc Scenery [address] [place] [address] 08/06/2023 8:20 AM EST Office Visit Family Practice [facility] [address] [place] [address] Carson Gallardo, [address] [place] [address] Scheduled Procedures Name Priority Associated Diagnoses Date/Ti ma COLONOSCOPY FLEXIBLE PROXIMAL DIAGNOSTIC Recall History of [...] this encounter Medical Devices Implanted Type Area Bleach Machine Operator Device Identifier Shelf Expiration Date Model / Serial / Lot Port Implant W/8f Poly Cath - [id number] Implanted:Qty : 1 on 04/22/2023 by Kaiden Armenta MD at OR [facility] Right: Chest CR BARD : PERIPHERAL VASCULAR [id number] 11/19/2024 [id number] / / [id number] documented as of this encounter Visit Diagnoses Diagnosis Typical atrial flutter (HCC) Atrial flutter HTN, goal below 140/90 Unspecified essential hypertension documented in this encounter Advance Directives Documents on File Type Date Recorded Patient Manufacturing Production Manager Expl anation Advance Directives and Living Will 09/07/2017 LIVING WILL Latest Code Status on File Code Status Date Activated Date Inactivated Comments Full Code 03/04/2023 7:10 AM 03/04/2023 3:47 PM Question Answer Comments Discussion of Advance Directives occurred with: Not Discussed due to patient's condition Care Teams Flaring Machine Operator Relationship Specialty Start Date End Date Carson Gallardo DO [address] [place] [address] PCP - General Family Medicine 07/18/19 documented as of this encounter
--- OUTSIDE RECORDS SUMMARY | 2023-10-08 04:03 | External Medical Summary | Summary of Care ---
Author Name Unknown Organization [facility] Address [address] [place] [address] Phone [phone] Care Team Providers Care Radio Division Captain Name Role Phone Carson Gallardo Primary Care Provider Reason for Visit * Reason Comments Chemotherapy Chemo/recheck Encounter Details Date Type Department Care Team (Late st Contact Info) Description 04/21/2023 9:00 AM EDT Office Visit Hematology/Oncology [facility] [address] [place] [address] Juanis Gonzalez CRNP [address] [place] [address] Malignant melanoma of face (HCC)*; Encounter for antineoplastic immunotherapy Allergies Active Allergy Reactions Criticality Noted Date Comments Sulfamethoxazole-Trimethop rim Fever,Other (Please comment) 09/13/2019 documented as of this encounter (statuses as of 04/22/2023) Medications Medication Sig Dispensed Refills Start Date [...] BEDTIME 90 Tablet 3 08/13/2022 Active Ipratropium [place] 0.03 % Nasal Solution (Atrovent) ADMINISTER 2 [...] as of this encounter (statuses as of 04/22/2023) Active Problems Problem Noted Date Diagnosed Date [...] as of this encounter (statuses as of 04/22/2023) Resolved Problems Problem Noted Date Diagnosed Date Resolved Date Family history of malignant neoplasm of prostate 03/11/2018 08/31/2019 Impaired fasting glucose 04/11/201404/2020 Metabolon Quantose IR Resear Study*[id number] 01/20/2014 04/10/2014 Overview: METABOLON QUANTOSE IR STUDY. PROJECT: #[id number], ETCHER ENAMELING: Tarun Nieto MD/ Dejuan Magdaleno MD. SUMMARY: The Use of a Novel Insulin Resistance Test as a Monitoring Indicator of Glycemic Control in Prediabetics and Diabetics treated with metformin combined with lifestyle intervention. CONTACTS: During normal business hours, contact Lily Burgos RN, BSN at ; after hours Garbage Depot Worker via the [facility] hospital reel and rewinder operator Impotence of organic origin 01/09/2014 08/31/2019 Epididymitis 01/09/2014 03/09/2017 Elevated prostate specific antigen (PSA) 01/09/2014 01/09/2014 Dry eye syndrome 12/31/2012 08/31/2019 Low testosterone 12/31/2012 08/31/2019 Family history of GI malignancy 07/09/2012 08/31/2019 Other specified hypothyroidism 08/19/2006 08/31/2019 ADVANCE DIRECTIVE INFORMATION 2006 08/31/2019 Overview: Information given to patient. DISC DIS [id number] - bulge L3-4, L4-5 02/21/2002 08/31/2019 FAM HX-DIABETES MELLITUS - Dad 01/31/1999 08/31/2019 Mixed dyslipidemia 02/01/1998 9 Overview: Per Lipid Taxonomy. Idiopathic urticaria 020 documented as of this encounter (statuses as of 04/22/2023) Immunizations Name Administration Dates Next Due COVID-19 [...] Sign Reading Time Taken Comments Blood Pressure 120/78 04/21/2023 8:59 AM EDT Pulse 77 04/21/2023 8:59 AM EDT Temperature 36.7 C (98.1 F) 04/21/2023 8:59 AM ED T Respiratory Rate 16 04/21/2023 8:59 AM EDT Oxygen Saturation 96% 04/21/2023 8:59 AM EDT Inhaled Oxygen Concentration - - Weight 94.5 kg (208 lb 4.8 oz) 04/21/2023 8:59 A M EDT Height - - Body Mass Index 29.89 03/11/2023 12:38 PM EDT documented in this encounter Progress Notes * Juanis Gonzalez CRNP - 04/21/2023 9:00 AM EDT Hematology/Oncology Outpatient Clinic note Verito Santos [address] [facility] [place] [address] Name: Dylan Owen Date: 04/20/2023 CHIEF COMPLAINT: Dylan Owen is a 73 year old male patient of Dr. Susie Epstein here today for f/u visit today. From Patient chart confirmed with patient. From Dr. Richards Lucian note 03/18/23. HEMATOLOGY/ONCOLOGY DIAGNOSIS: Invasive melanoma diagnosis of left cheek. 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 Cancer Staging Stage pT4a a pN0, stage IIB DATE OF DIAGNOSIS: 01/20/23 TREATMENT HISTORY: Patient underwent wide excision and sentinel lymph node biopsy 03/04/23. Lymph node was negative formetastasis disease CURRENT TREATMENT: Pembrolizumab 200 mg q21 Days for up to 1 Year of Therapy (03/31/23 - ) ONCOLOGY HISTORY: 73-year-old male with past medical history significant [...] above the subcutis. The invasive component is Hubert level V. One dermal mitoses per square [...] from the prior specimen from this anatomiclocation ([id number]) as well as information from the current specimen if possible. Certain parameters such as Breslow depth, Apolinar level, and ulceration are often difficult or impossible to accurately determine in excision specimens when a prior sampling/biopsy has been performed. The prior reported T category of pT4a remains unchanged from the original synoptic report for case [id number]. Junctional melanocytic hyperplasia (of sun damaged skin) [...] of Lymph Nodes Examined 1 Number of [place] Nodes Examined 1 PATHOLOGIC STAGE CLASSIFICATION (pTNM, AJCC 8th Edition) pT Category pT4a pN Category pN0 PET scan was done on 03/03/2023 which shows no evidence of metastatic disease and there was a calcified 3.6 x 2.7 cm left calvarial mass consistent with meningioma. HISTORY OF PRESENT ILLNESS: Dylan Owen is a 73 year old male with a history as outlined above. Currently here for f/u visit today and consideration for C2D1 of treatment. Patient noticed some mild bloody discharge from his left cheek incision site this morning. Believes a stitch is working its way out. Does not appears i nfected and is not tender at all. For second week after first treatment cycle felt extreme fatigue.Causing him depression because he cannot do things he wants to do. Did also get a foreign body in his eye that caused infection. Was removed by his eye doctor and immediately improved. Denies rashes or skin changes. Did get a headache but attributed this to his eye problem. Denies neuropathy. Denies any significant SOB or coughing. Increasing his oral fluid intake. Cut back on BP medication d/t hypotension. Past Medical History: Diagnosis Date Benign neoplasm [...] performed by Elmer Hatfield MD at [facility] COLONOSCOPY, DIAGNOSTIC (RECTUM) 03/08/2019 serrated adenomatous polyps, diverticulosis, repeat 3 yrs/COLONOSCOPY FLEXIBLE PROXIMAL DIAGNOSTIC performed by Elmer Hatfield MD at [facility] COLONOSCOPY, DIAGNOSTIC (RECTUM) 07/30/2022 benign adenomatous polyp, repeat 5 yrs / COLONOSCOPY FLEXIBLE PROXIMAL DIAGNOSTIC performed by Elmer Hatfield MD at [facility] EGD, FLEXIBLE, DIAGNOSTIC 12/02/2021 Mild Schatzki ring , dilated to 54fr, single duodenal polyp likely lipoma / biopsies normal / recall 6 months / ESOPHAGOGASTRODUODENOSCOPY (EGD), FLEXIBLE, TRANSORAL, DIAGNOSTIC performed by Franco Shabazz DO at [facility] IDENTIFY SENTINEL NODE, RADIOACTIVE TRACER Left 03/04/2023 INJECTION PROCEDURE FOR IDENTIFICATION SENTINEL NODE performed by Horace Hudson MD at [facility] LUMBAR SPINE FUSION, POST INTERBODY 07/31/2009 Torretti L4-5 S1 RMV MALG LSN FACE/EAR 1.1-2CM Left 03/04/2023 EXCISION MALIGNANT FACE EAR EYELID 1.1 TO 2CM performed by Horace Hudson MD at [facility] VASECTOMY Social History Socioeconomic History Marital status: Spouse name: Aisha Number of children: 2 Years of education: Not on file Highest education level: Not on file Occupational History 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 Tobacco Use Smoking status: Former Packs/day: 1.50 Years: 21.00 Additional pack years: 0.00 Total pack years: 31.50 Types: Cigarettes Quit date: 10/04/1990 Years since quittin.5 Smokeless tobacco: Never Vaping Use Vaping Use: Never used Substance and Sexual Activity Alcohol use: Yes Alcohol/week: 28.0 standard drinks of alcohol Types: 28 12 oz of beer per week Comment: 4 beer/day Drug use: No Sexual activity: Not on file Other Topics Concern Not on file Social History Narrative Not on file Social Determinants of Health Financial Resource Strain: Not on file Food Insecurity: No Food Insecurity (03/12/2023) Hunger Vital Sign Worried About Running Out of Food in the Last Year: Never true Ran Out of Food in the Last Year: Never true Transportation Needs: Not on file Physical Activity: Not on file Stress: Not on file Social Connections: Not on file Intimate Partner Violence: Not on file Housing Stability: Not on file Review of patient's allergies indicates: Allergen Reactions Sulfamethoxazole-Trimethoprim Fever and Other (Please comment) Current Outpatient Medications Medication Sig Dispense Refill [...] by mouth every 6 hours as needed. Eliquis 5 MG Oral Tablet (Apixaban) TAKE 1 TABLET BY MOUTH TWO TIMES DAILY 180 Tablet 3 Metoprolol Succinate ER 25 MG Oral Tablet Extended Release 24 Hour (toPROL XL) Take 1 Tablet (25 mg) by mouth in the morning. 90 Tablet 3 metFORMIN HCl ER 500 MG Oral Tablet Extended Release 24 Hour (Glucophage XR) Take 2 Tablets by mouth at bedtime. 180 Tablet 3 Atorvastatin Calcium 80 MG Oral Tablet (Lipitor) TAKE 1 TABLET BY MOUTH AT BEDTIME 90 Tablet 3 Ipratropium [place] 0.03 % Nasal Solution (Atrovent) ADMINISTER 2 [...] mouth in the morning. 30 Tablet 11 No current facility-administered medications for this visit. REVIEW OF SYSTEMS: See HPI - otherwise negative OBJECTIVE: Filed Vitals: 04/21/23 0859 BP: 120/78 Pulse: 77 Resp: 16 Temp: 36.7 C (98.1 F) TempSrc: Tympanic SpO2: 96% Weight: 94.5 kg (208 lb 4.8 oz) Wt Readings from Last 5 Encounters: 04/21/23 94.5 kg (208 lb 4.8 oz) 04/13/23 94.8 kg (209 lb) 03/31/23 95.1 kg (209 lb 9.6 oz) 03/24/23 94.4 kg (208 lb 2 oz) 03/18/23 95.2 kg (209 lb 14.4 oz) PHYSICAL EXAM: ECOG: Performance Status 0 = 100% Normal Activity General Appearance: Normal - Healthy appearing patient in no acute distress Lymph Nodes: Normal - No palpable lymph nodes in the neck or supraclavicular areas Lungs/Thorax: Normal - Clear to auscultation Heart: Normal - Regular rate and rhythm, normal S1, S2, no appreciable murmurs Pulses/Extremities: Normal - 2+ throughout and symmetrical, no edema Skin: small open area to lateral end of left cheek incision with small amount of ecchymosis Neurologic: Normal - Grossly intact LABS: Results for orders placed or performed in visit on 04/20/23 MAGNESIUM Result Value Ref Range Magnesium 1.7 1.5 - 2.6 mg/dL VITAMIN B12 Result Value Ref Range Vitamin B12 482 232 - 1,245 pg/mL COMPREHENSIVE METABOLIC PANEL Result Value Ref Range BUN 9 6 - 20 mg/dL Creatinine 0.9 0.6 - 1.2 mg/dL Estimated Glomerular Filtration Rate >90 >=60 mL/min Sodium 133 (L) 135 - 146 mmol/L Potassium 4.1 3.5 - 5.1 mmol/L Chloride 98 98 - 107 mmol/L CO2 26 22 - 32 mmol/L Anion Gap 9 7 - 15 mmol/L Glucose 144 (H) 70 - 120 mg/dL Albumin 4.3 3.8 - 5.0 g/dL AST 29 10 - 50 U/L Alkaline Phosphatase 120 35 - 130 U/L Bilirubin, Total 0.9 <=1.2 mg/dL Calcium 9.7 8.4 - 10.2 mg/dL Protein 7.4 6.0 - 8.3 g/dL ALT 31 10 - 50 U/L TSH WITH FREE T4 IF INDICATED Result Value Ref Range TSH 2.00 0.27 - 4.20 uIU/mL CBC Result Value Ref Range WBC 7.69 4.00 - 10.80 K/uL RBC 4.12 4.50 - 5.25 M/uL HGB 13.0 (L) 14.0 - 16.8 g/dL HCT 38.5 (L) 40.0 - 48.4 % MCV 93.4 82.0 - 99.5 fL MCH 31.6 27.0 - 34.0 pg MCHC 33.8 32.0 - 36.0 g/dL RDW 12.7 11.5 - 15.5 % PLT 276 140 - 400 K/uL MPV 9.3 6.6 - 11.1 fL DIFFERENTIAL, AUTOMATED Result Value Ref Range WBC 7.69 4.00 - 10.80 K/uL Neutrophils % 45.5 40.0 - 75.0 % Lymphocytes % 37.7 18.0 - 42.0 % Monocytes % 13.4 (H) 1.0 - 11.0 % Eosinophils % 3.3 0.0 - 6.0 % Basophils % 0.1 0.0 - 2.0 % Absolute Neutrophils 3.50 1.80 - 7.70 K/uL Absolute Lymphocytes 2.90 1.00 - 4.80 K/ul Absolute Monocytes 1.03 0.00 - 1.10 K/uL Absolute Eosinophils 0.25 0.00 - 0.70 K/uL Absolute Basophils 0.01 0.00 - 0.20 K/uL BILIRUBIN, DIRECT Result Value Ref Range Bilirubin, Direct 0.3 0.0 - 0.3 mg/dL IMPRESSION/PLAN: Invasive malignant melanoma of left cheek - stage Iib Encounter for immunotherapy Lab results reviewed: unremarkable Ok for treatment today as scheduled Tolerating treatment plan well. Planning for total of one year of therapy with Keytruda Will consider for restaging scans every three months for one year, every six months for one year and then annually up to five years Continue to follow closely with dermatology. Encouraged patient to follow up with surgeon regarding concerns about incision site. Patient verbalized understanding. RTC in 9 weeks with physician for chemo return/scan review NELLI Palm documented in this encounter Nursing Notes * Karen Gallardo CMA - 04/21/2023 8:59 AM EDT Patient identifed by name and [...] it for you? ALREADY ACTIVE Filed Vitals: 04/21/23 0859 BP: 120/78 Pulse: 77 Resp: 16 Temp: 36.7 C (98.1 F) TempSrc: Tympanic SpO2: 96% Weight: 94.5 kg (208 lb 4.8 oz) Patient was instructed to not get [...] 05/12/2023 9:30 AM EST Laboratory Laboratory [facility] [place] [address] [place] [id number] Danielle, Lab Scenery [address] [place] [address] 05/12/2023 10:30 AM EST Hem/Onc Treatment Hematology/Oncology Treatment, [place] [address] [place] [address] Danielle, Chair 1 Hem Onc Scenery [address] [facility] [place] [address] 08/06/2023 8:20 AM EST Office Visit Family [facility] [address] [place] [address] Carson Gallardo DO [address] [place] [address] Scheduled Procedures Name Priority Associated Diagnoses Date/Ti me INSERT TUNNELED CENTRAL VENO US ACCESS WITH SUBQ PORT Malignant melanoma of face (HCC) 04/22/2023 9:21 AM EDT COLONOSCOPY FLEXIBLE PROXIMA L DIAGNOSTIC [...] 12/2021, 11/26/2021, Additional history exists Albumin/Creatinine Ratio 12/12/202312/11/2 023, 05/28/2022, 11/26/2021, Additional history exists Diabetic [...] this encounter Medical Devices Implanted Type Area Fuel Cell Designer Device Identifier Shelf Expiration Date Model / Serial / Lot Port Implant W/8f Poly Cath - [id number] Implanted:Qty : 1 on 04/22/2023 by Kaiden Armenta MD at OR [facility] Right: Chest CR BARD : PERIPHERAL VASCULAR [id number] 11/19/2024 [id number] / / [id number] documented as of this encounter Visit Diagnoses Diagnosis Malignant melanoma of face (HCC)- Primary Malignant melanoma of skin of other and unspecified parts of face Encounter for antineoplastic immunotherapy documented in this encounter Advance Directives Documents on File Type Date Recorded Patient E M Assembler Expl anation Advance Directives and Living Will 09/07/2017 LIVING WILL Latest Code Status on File Code Status Date Activated Date Inactivated Comments Full Code 03/04/2023 7:10 AM 03/04/2023 3:47 PM Question Answer Comments Discussion of Advance Directives occurred with: Not Discussed due to patient's condition Care Teams Radio Division Captain Relationship Specialty Start Date End Date Carson Gallardo DO [address] [place] [address] PCP - General Family Medicine 07/18/19 documented as of this encounter
--- OUTSIDE RECORDS SUMMARY | 2023-10-08 04:03 | External Medical Summary | Summary of Care ---
Author Name Unknown Organization [facility] Address [address] [place] [address] Phone [phone] Care Team Providers Care Fondant Cooker Name Role Phone Carson Gallardo Primary Care Provider Encounter Details Date Type Department Care Team (Late st Contact Info) Description 04/22/2023 Orders Only [facility]ematology/Oncology [facility] [place] [address] [place] [address] Susie Epstein MD [address] [facility] [place] [address] Allergies Active Allergy Reactions Criticality Noted Date [...] BEDTIME 90 Tablet 3 08/13/2022 Active Ipratropium [place] 0.03 % Nasal Solution (Atrovent) ADMINISTER 2 [...] Impaired fasting glucose 04/11/201404/2020 Metabolon Quantose IR [facility] Study*[id number] 01/20/2014 04/10/2014 Overview: METABOLON QUANTOSE IR STUDY. PROJECT: #[id number], CONTROL TOWER RADIO OPERATOR: Tarun Nieto MD/ Dejuan Magdaleno MD. SUMMARY: The Use of a Novel Insulin Resistance Test as a Monitoring Indicator of Glycemic Control in Prediabetics and Diabetics treated with metformin combined with lifestyle intervention. CONTACTS: During normal business hours, contact Lily Burgos RN, BSN at ; after hours Cribber via the [facility] web press operator apprentice Impotence of organic origin 01/09/2014 08/31/2019 Epididymitis 01/09/2014 03/09/2017 Elevated prostate specific antigen (PSA) 01/09/2014 01/09/2014 Dry eye syndrome 12/31/2012 08/31/2019 Low testosterone 12/31/2012 08/31/2019 Family history of GI malignancy 07/09/2012 08/31/2019 Other specified hypothyroidism 08/19/2006 08/31/2019 ADVANCE DIRECTIVE INFORMATION 2006 08/31/2019 Overview: Information given to patient. DISC DIS [id number] - bulge L3-4, L4-5 02/21/2002 08/31/2019 FAM [...] Description 05/12/2023 9:30 AM EST Laboratory Laboratory [facility] [address] [place] [address] Danielle, Lab Scenery [address] [place] [address] 05/12/2023 10:30 AM EST Hem/Onc Treatment Hematology/Oncology Treatment, [place] [address] [place] [address] [place], Chair 1 Hem Onc [facility] [address] [place] [address] 08/06/2023 8:20 AM EST Office Visit Family Practice [facility] [address] [place] [address] Carson Gallardo DO [address] [place] [address] Scheduled Procedures Name Priority Associated Diagnoses Date/Ti [...] this encounter Medical Devices Implanted Type Area Fifth Hand Device Identifier Shelf Expiration Date Model / Serial / Lot Port Implant W/8f Poly Cath - [id number] Implanted:Qty : 1 on 04/22/2023 by Kaiden Armenta MD at OR [facility] Right: Chest CR BARD : PERIPHERAL VASCULAR [id number] 11/19/2024 [id number] / / [id number] documented as of this encounter Advance Directives Documents on File Type Date Recorded Patient Breaker Engineer Expl anation Advance Directives and Living Will 09/07/2017 LIVING WILL Latest Code Status on File Code Status Date Activated Date Inactivated Comments Full Code 03/04/2023 7:10 AM 03/04/2023 3:47 PM Question Answer Comments Discussion of Advance Directives occurred with: Not Discussed due to patient's condition Care Teams Fondant Cooker Relationship Specialty Start Date End Date Carson Gallardo DO [address] [place] [address] PCP - General Family Medicine 07/18/19 documented as of this encounter
--- OUTSIDE RECORDS SUMMARY | 2023-10-08 04:03 | External Medical Summary | Summary of Care ---
Author Name Unknown Organization [facility] Address [address] [place] [address] Phone [phone] Care Team Providers Care Organic Chemistry Teacher Name Role Phone Carson Gallardo Primary Care Provider Reason for Visit * Reason Onset Date Comments Mycode Lab Reorder 05/01/2023 Encounter Details Date Type Department Care Team (Late st Contact Info) Description 05/01/2023 Orders Only Outcomes Research Department [address], [place] [id number] Angelica Dow CHRA MyCode Research Other*[id number]* Allergies Active Allergy Reactions Criticality Noted Date [...] BEDTIME 90 Tablet 3 08/13/2022 Active Ipratropium [place] 0.03 % Nasal Solution (Atrovent) ADMINISTER 2 [...] fasting glucose 04/11/201404/2020 Metabolon Quantose IR Resear Study*[id number] 01/20/2014 04/10/2014 Overview: METABOLON QUANTOSE IR STUDY. PROJECT: #[id number], CORPORATE FINANCIAL ANALYST: Tarun Nieto MD/ Dejuan Magdaleno MD. SUMMARY: The Use of a Novel Insulin Resistance Test as a Monitoring Indicator of Glycemic Control in Prediabetics and Diabetics treated with metformin combined with lifestyle intervention. CONTACTS: During normal business hours, contact Lily Burgos RN, BSN at ; after hours Theology Professor via the [facility] slitting machine operator Impotence of organic origin 01/09/2014 08/31/2019 Epididymitis 01/09/2014 03/09/2017 Elevated prostate specific antigen (PSA) 01/09/2014 01/09/2014 Dry eye syndrome 12/31/2012 08/31/2019 Low testosterone 12/31/2012 08/31/2019 Family history of GI malignancy 07/09/2012 08/31/2019 Other specified hypothyroidism 08/19/2006 08/31/2019 ADVANCE DIRECTIVE INFORMATION 2006 08/31/2019 Overview: Information given to patient. DISC DIS [id number] - bulge L3-4, L4-5 02/21/2002 08/31/2019 FAM [...] as of this encounter Progress Notes * Angelica Dow CHRA - 05/01/2023 2:06 PM EST MyCode lab reordered. documented in this encounter Plan of Treatment Upcoming Encounters Date Type Department Care Team (Late st Contact Info) Description 05/12/2023 9:30 AM EST Laboratory Laboratory [facility] [address] [place] [address] [place] [address] Danielle, Lab Scenery [address] [facility] [place] [address] 05/12/2023 10:30 AM EST Hem/Onc Treatment Hematology/Oncology Treatment, [place] [address] [place] [address] Danielle, Chair 1 Hem Onc Scenery [address] [facility] [place] [address] 08/06/2023 8:20 AM EST Office Visit Family Practice [facility] [address] [place] [address] Carson Gallardo DO [address] [place] [address] Scheduled Orders Name Type Priority Associated Diagnoses Orde r Schedule MYCODE SUBSEQUENT ADULT Lab Routine MyCode Research Other*[id number] Every 6 Months for 2 Occurrences starting 05/01/2023 until 05/20/2024 Scheduled Procedures Name Priority Associated Diagnoses Date/Ti [...] this encounter Medical Devices Implanted Type Area Coremaker Pipe Device Identifier Shelf Expiration Date Model / Serial / Lot Port Implant W/8f Poly Cath - [id number] Implanted:Qty : 1 on 04/22/2023 by Kaiden Armenta MD at [facility] Right: Chest CR BARD : PERIPHERAL VASCULAR [id number] 11/19/2024 [id number] / / [id number] documented as of this encounter Visit Diagnoses Diagnosis MyCode Research Other*[id number]- Primary documented in this encounter Advance Directives Documents on File Type Date Recorded Patient Drier Unloader Expl anation Advance Directives and Living Will 09/07/2017 LIVING WILL Latest Code Status on File Code Status Date Activated Date Inactivated Comments Full Code 03/04/2023 7:10 AM 03/04/2023 3:47 PM Question Answer Comments Discussion of Advance Directives occurred with: Not Discussed due to patient's condition Care Teams Organic Chemistry Teacher Relationship Specialty Start Date End Date Carson Gallardo DO [address] [place] [address] PCP - General Family Medicine 07/18/19 documented as of this encounter
--- OUTSIDE RECORDS SUMMARY | 2023-10-08 04:03 | External Medical Summary | Summary of Care ---
Author Name Unknown Organization [facility] Address [address] [place] [address] Phone [phone] Care Team Providers Care Cigar Head Perforator Name Role Phone Carson Gallardo Primary Care Provider Reason for Visit * Reason Comments Treatment Keytruda * Episode Based Medications (Routine) - Authorized Specialty Diagnoses / Procedures Referred By Tanisha t Referred To Contact Diagnoses Malignant melanoma of face (HCC) Procedures MA INJ PEMBROLIZUMAB Susie Epstein MD [address] [place] [address] Anc Hem/Onc [address] [place] [address] Referral ID Status Reason Start Date Expiration Date V isits Requested Visits Authorized [id number] Authorized 03/17/2023 06/21/2099 99 99 Encounter Details Date Type Department Care Team (Latest Contact Info) Description 04/21/2023 9:30 AM EDT Hem/Onc Treatment Hematology/Oncolog y Treatment, [place] [address] [place] [address] Danielle, Chair 6 Hem On[address] [place] [address] Malignant melanoma of face (HCC)*; Encounter for [...] BEDTIME 90 Tablet 3 08/13/2022 Active Ipratropium [place] 0.03 % Nasal Solution (Atrovent) ADMINISTER 2 [...] glucose 04/11/201404/2020 Metabolon Quantose IR [facility] Study*[id number] 01/20/2014 04/10/2014 Overview: METABOLON QUANTOSE IR STUDY. PROJECT: #[id number], NURSING PROGRAM COORDINATOR: Tarun Nieto MD/ Dejuan Magdaleno MD. SUMMARY: The Use of a Novel Insulin Resistance Test as a Monitoring Indicator of Glycemic Control in Prediabetics and Diabetics treated with metformin combined with lifestyle intervention. CONTACTS: During normal business hours, contact Lily Burgos RN, BSN at ; after hours Scientific Diver via the [facility] hospital serging machine operator Impotence of organic origin 01/09/2014 08/31/2019 Epididymitis 01/09/2014 03/09/2017 Elevated prostate specific antigen (PSA) 01/09/2014 01/09/2014 Dry eye syndrome 12/31/2012 08/31/2019 Low testosterone 12/31/2012 08/31/2019 Family history of GI malignancy 07/09/2012 08/31/2019 Other specified hypothyroidism 08/19/2006 08/31/2019 ADVANCE DIRECTIVE INFORMATION 2006 08/31/2019 Overview: Information given to patient. DISC DIS HPE-[id number] - bulge L3-4, L4-5 02/21/2002 08/31/2019 FAM [...] as of this encounter Nursing Notes * Teri Groves RN - 04/21/2023 10:11 AM EDT Pt presents for Angelina. Chair 8. [facility] Care Plan ID is not set. Safety and Risk for Injury Patient will remain free from injury. Assess patient's risk for falls per policy. Ensure appropriate safety devices are available. Provide and maintain safe environment. Use appropriate transfer methods. Goals: maintain patient safety Possible barriers to meeting goals: plasmapheresis Stability of the patient: Moderately stable - low risk of patient condition declining or worsening Summary regarding today's goals: Met: patient safety maintained. Functional status at today's visit: Fully active, [...] or adverse side effects during treatment. Patient left clinic by ambulating. Unaccompanied. Voiced no complaints. Teri Groves RN 04/21/2023 12:34 PM documented in this encounter Plan of Treatment Upcoming Encounters Date Type Department Care Team (Latest Contact Info) Description 04/22/2023 9:00 AM EDT Hospital Encounter OR [facility], Operating Room, [facility] Floor [address] [place] [address] Kaiden Armenta MD [address] [place] [address] 04/22/2023 9:00 AM EDT - 04/22/2023 9:55 AM EDT Surgery OR [facility], Operating Room, [facility] - [address] [place] [address] Kaiden Armenta MD [address] [place] [address] INSERT TUNNELED CENTRAL VENOUS ACCESS WITH SUBQ PORT 05/12/2023 9:30 AM EST Laboratory Laboratory [facility] [place] [facility] [place] [id number] [place], Lab [address] [facility] [place] [address] 05/12/2023 10:30 AM EST Hem/Onc Treatment Hematology/Oncology Treatment, [place] 200 [facility] [place] [address] aDnielle, Chair 1 Hem Onc Scenery [address] [place] [address] 08/06/2023 8:20 AM EST Office Visit Family [facility] [address] [place] [address] Carson Gallardo, [address] [place] [address] Scheduled Procedures Name Priority Associated Diagnoses Date/Ti [...] 12/2021, 11/26/2021, Additional history exists Albumin/Creatinine Ratio 12/12/20232 023, [...] Not on filedocumented as of this encounter Visit Diagnoses Diagnosis Malignant melanoma of face (HCC)- Primary Malignant melanoma of skin of other and unspecified parts of face Encounter for antineoplastic chemotherapy Malignant melanoma of face (HCC) Malignant melanoma of skin of other and unspecified parts of face documented in this encounter Administered Medications Active Administered Medications - up to 3 most recent administrations Medication Order MAR Action Action Date Dose Rate Site diphenhydrAMINE (Benadryl) inj 50 mg 50 mg, IV Push, ONCE PRN Other, Hypersensitivity Reaction, Starting on Thu04/21/23 at 0954, Until Thu04/22/23 at 0953, For 24 hours EPINEPHrine 1 MG/ML inj 0.3 mg 0.3 mg, Intramuscular, ONCE PRN Other, Hypersensitivity Reaction or Anaphylaxis, Starting on Thu04/21/23 at 0954, Until Thu04/22/23 at 0953, For 24 hours hEParin 100 UNIT/ML Lock Flush inj 500 Units 500 Units (5 mL), IV Lock, PRN Other, IV Flush, Starting on Thu04/21/23 at 0954, Until Thu04/22/23 at 0953, For 24 hours, Do not flush if lock, PICC, or central line not in place; IV infusing or unable to flush. Hydrocortisone Sod Suc (PF) (Solu-Cortef) inj 100 mg 100 mg, IV Push, ONCE PRN Other, Hypersensitivity Reaction, Starting on Thu04/21/23 at 0954, Until Thu04/22/23 at 0953, For 24 hours NSS infusion Intravenous, at 50 mL/hr, PRN, Starting on Thu04/21/23 at 1100, Until Discontinued, KVO Start Infusion 04/21/2023 11:07 AM EDT 50 mL/hr sodium chloride 0.9 % flush central line 10 mL 10 mL, IV Push, PRN Other, IV Flush, Starting on Thu04/21/23 at 0954, Until Thu04/22/23 at 0953, For 24 hours, Do not flush if lock, PICC, or central line not in place; IV infusing or unable to flush. Inactive Administered Medications - up to 3 most recent administrations Medication Order MAR Action Action Date Dose Rate Site Pembrolizumab (Keytruda) 200 mg in NSS 100 mL infusion 200 mg, IV Piggyback, ONCE, 1 dose, On Thu04/21/23 at 1130, Administer over 30 Minutes, Infuse through 0.2 micron filter. Start Infusion 04/21/2023 11:07 AM EDT 200 mg 200 mL/hr documented in this encounter Advance Directives Documents on File Type Date Recorded Patient Operations And Maintenance Technican Expl anation Advance Directives and Living Will 09/07/2017 LIVING WILL Latest Code Status on File Code Status Date Activated Date Inactivated Comments Full Code 03/04/2023 7:10 AM 03/04/2023 3:47 PM Question Answer Comments Discussion of Advance Directives occurred with: Not Discussed due to patient's condition Care Teams Cigar Head Perforator Relationship Specialty Start Date End Date Carson Gallardo DO [address] [place] [address] PCP - General Family Medicine 07/18/19 documented as of this encounter
--- OUTSIDE RECORDS SUMMARY | 2023-10-08 04:04 | External Medical Summary | Summary of Care ---
Author Name Unknown Organization [facility] Address [address] [place] [address] Phone [phone] Care Team Providers Care Software Architect Name Role Phone Carson Gallardo Primary Care Provider Reason for Visit * Reason Comments Outpatient Testing Encounter Details Date Type Department Care Team (Late st Contact Info) Description 04/20/2023 9:10 AM EDT Laboratory Laboratory [facility] [place] [address] [place] [phone] [place], Lab Scenery [address] [place] [address] Encounter for long-term (current) use of medications; Malignant melanoma of face (HCC); Elevated LFTs Allergies Active Allergy Reactions Criticality Noted Date [...] BEDTIME 90 Tablet 3 08/13/2022 Active Ipratropium [place] 0.03 % Nasal Solution (Atrovent) ADMINISTER 2 [...] Impaired fasting glucose 04/11/201404/2020 Metabolon Quantose IR [facility] Study*[id number] 01/20/2014 04/10/2014 Overview: METABOLON QUANTOSE IR STUDY. PROJECT: #[id number], CHIROPRACTIC CARE: Tarun Nieto MD/ Dejuan Magdaleno MD. SUMMARY: The Use of a Novel Insulin Resistance Test as a Monitoring Indicator of Glycemic Control in Prediabetics and Diabetics treated with metformin combined with lifestyle intervention. CONTACTS: During normal business hours, contact Lily Burgos RN, BSN at ; after hours Boat Ride Operator via the [facility] hospital chemical operator Impotence of organic origin 01/09/2014 08/31/2019 Epididymitis 01/09/2014 03/09/2017 Elevated prostate specific antigen (PSA) 01/09/2014 01/09/2014 Dry eye syndrome 12/31/2012 08/31/2019 Low testosterone 12/31/2012 08/31/2019 Family history of GI malignancy 07/09/2012 08/31/2019 Other specified hypothyroidism 08/19/2006 08/31/2019 ADVANCE DIRECTIVE INFORMATION 2006 08/31/2019 Overview: Information given to patient. DISC DIS CID-[id number] - bulge L3-4, L4-5 02/21/2002 08/31/2019 FAM [...] 04/21/2023 9:00 AM EDT Office Visit Hematology/Oncology [facility] Danielle [address] [place] [address] Juanis Gonzalez CRNP [address] [place] [address] 04/21/2023 9:30 AM EDT Hem/Onc Treatment Hematology/Oncology Treatment, [place] [address] [facility] [address] [place] [address] Danielle, Chair 6 Hem Onc [address] [place] [address] 04/22/2023 9:00 AM EDT Hospital Encounter OR [facility], Operating Room, [facility] - 4th Floor 400 [facility] [place] [address] Kaiden Armenta MD [address], [place] [id number] 04/22/2023 9:00 AM EDT - 04/22/2023 9:55 AM EDT Surgery OR [facility], Operating Room, [facility] - 4th Floor [address] [place] [address] Kaiden Armenta MD [address] [facility] [place] [address] INSERT TUNNELED CENTRAL VENOUS ACCESS WITH SUBQ PORT 08/06/2023 8:20 AM EST Office Visit Family [facility] [address] [facility] [place] [address] Carson Gallardo DO [address] [place] [address] Pending Results Name Type Priority Associated Diagnoses Date /Time MAGNESIUM Lab Routine Encounter for long-term (current) use of medications 04/20/2023 9:20 AM EDT VITAMIN B12 Lab Routine Encounter for long-term (current) use of medications 04/20/2023 9:20 AM EDT COMPREHENSIVE METABOLIC PANEL Lab STAT Malignant melanoma of face (HCC) 04/20/2023 9:20 AM EDT TSH WITH FREE T4 IF INDICATED Lab STAT Malignant melanoma of face (HCC) Encounter for long-term (current) use of medications 04/20/2023 9:20 AM EDT BILIRUBIN, DIRECT Lab Routine Elevated LFTs 04/20/2023 9:20 AM EDT Scheduled Procedures Name Priority Associated [...] of 3 - Risk 3-dose series) 2011 DIABETES-EYE EXAM 04/26/2022 04/26/2021 COVID-19 Vaccine ( season) 2023 03/25/2022, 11/11/2021, 04/18/2021, Additional history exists Influenza Vaccine (FLU shot) (#1) 2023 04/08/2022, 03/18/2021, 03/27/2020, Additional history exists HbA1c 06/12/2023 12/11/2022, 12/0 12/2021, 11/26/2021, Additional history exists Albumin/Creatinine Ratio 12/12/2023 023, 05/28/2022, 11/26/2021, Additional history exists Diabetic Foot Exam 12/19/2023 12/18/2022, 0 10/08/2021, 09/17/2020 Depression Screening 03/11/2024 03/11/2023 GFR 03/27/2024 03/27/2023, 02/21, 03/11/2023, Additional history exists TSH 03/27/2024 03/27/2023, 02/21, 12/11/2022, Additional history exists COLONOSCOPY-EVERY 5 YRS AGES [...] Not on filedocumented as of this encounter Procedures Procedure Name Priority Date/Time Associated Diagnosis Comments DIFFERENTIAL, AUTOMATED STAT 04/20/2023 9:20 AM EDT Malignant melanoma of face (HCC) CBC STAT 04/20/2023 9:20 AM EDT Malignant melanoma of face (HCC) CBC STAT 04/20/2023 9:20 AM EDT Malignant melanoma of face (HCC) documented in this encounter Results * (ABNORMAL) DIFFERENTIAL, AUTOMATED (04/20/2023 9:20 AM EDT) WBC 7.69 4.00 - 10.80 K/uL 04/20/2023 9:25 AM EDT LAB[facility]ORY [facility] 56-02 Neutrophils % 45.5 40.0 - 75.0 % 04/20/2023 9:25 AM EDT [facility]-02 Lymphocytes % 37.7 18.0 - 42.0 % 04/20/2023 9:25 AM EDT LABORATORY [place] 56-02 Monocytes % 13.4(H) 1.0 - 11.0 % 04/20/2023 9:25 AM EDT [facility] 56-02 Eosinophils % 3.3 0.0 - 6.0 % 04/20/2023 9:25 AM EDT [facility] 56-02 Basophils % 0.1 0.0 - 2.0 % 04/20/2023 9:25 AM EDT [facility] 56-02 Absolute Neutrophils 3.50 1.80 - 7.70 K/uL 04/20/2023 9:25 AM EDT [facility] 56-02 Absolute Lymphocytes 2.90 1.00 - 4.80 K/ul 04/20/2023 9:25 AM EDT [facility] 56-02 Absolute Monocytes 1.03 0.00 - 1.10 K/uL 04/20/2023 9:25 AM EDT [facility] 56-02 Absolute Eosinophils 0.25 0.00 - 0.70 K/uL 04/20/2023 9:25 AM EDT LABORATORY [facility] 56-02 Absolute Basophils 0.01 0.00 - 0.20 K/uL 04/20/2023 9:25 AM EDT LABORATORY [place] 56-02 Blood Venous blood specimen / Unknown Venipuncture / Unknown 04/20/2023 9:20 AM EDT 04/20/2023 9:20 AM EDT Susie Epstein MD LAB BLOOD [facility] [address]- [address] [place] [id number] * (ABNORMAL) CBC (04/20/2023 9:20 AM EDT) WBC 7.69 4.00 - 10.80 K/uL 04/20/2023 9:25 AM EDT [address] RBC 4.12 4.50 - 5.25 M/uL 04/20/2023 9:25 AM EDT [address] HGB 13.0(L) 14.0 - 16.8 g/dL 04/20/2023 9:25 AM EDT [facility] 56 HCT 38.5(L) 40.0 - 48.4 % 04/20/2023 9:25 AM EDT [facility] 56 MCV 93.4 82.0 - 99.5 fL 04/20/2023 9:25 AM EDT [facility] 56 MCH 31.6 27.0 - 34.0 pg 04/20/2023 9:25 AM EDT [facility] 56 MCHC 33.8 32.0 - 36.0 g/dL 04/20/2023 9:25 AM EDT [facility] 56 RDW 12.7 11.5 - 15.5 % 04/20/2023 9:25 AM EDT [facility] 56 PLT 276 140 - 400 K/uL 04/20/2023 9:25 AM EDT [facility] 56 MPV 9.3 6.6 - 11.1 fL 04/20/2023 9:25 AM EDT [facility] 56 Blood Venous blood specimen / Unknown Venipuncture / Unknown 04/20/2023 9:20 AM EDT 04/20/2023 9:20 AM EDT Susie Epstein MD LAB BLOOD [facility] [place] 56-02 [address] [place] [address] documented in this encounter Visit Diagnoses Diagnosis Encounter for long-term (current) use of medications Encounter for long-term (current) use of other medications Malignant melanoma of face (HCC) Malignant melanoma of skin of other and unspecified parts of face Elevated LFTs Other abnormal blood chemistry Malignant melanoma of face (HCC) Malignant melanoma of skin of other and unspecified parts of face documented in this encounter Advance Directives Documents on File Type Date Recorded Patient Womens Health Nurse Practitioner Expl anation Advance Directives and Living Will 09/07/2017 LIVING WILL Latest Code Status on File Code Status Date Activated Date Inactivated Comments Full Code 03/04/2023 7:10 AM 03/04/2023 3:47 PM Question Answer Comments Discussion of Advance Directives occurred with: Not Discussed due to patient's condition Care Teams Software Architect Relationship Specialty Start Date End Date Carson Gallardo DO [address] [place] [address] PCP - General Family Medicine 07/18/19 documented as of this encounter
--- OUTSIDE RECORDS SUMMARY | 2023-10-08 04:04 | External Medical Summary ---
Author Name Unknown Address Unknown Organization K01:[facility] [place] [address] [facility] [address] [facility] [address] Laboratory Report Ordering Provider Test Date Status MCCRAYSADECHRIS 04/20/2023 09:20:05 Final Observation Date Value Abnormality Reference (Units ) Status TSH 04/20/2023 09:20:05 2.00 0.27-4.20 (uIU/mL) Final Performing Location [facility] [address] [facility] [address]
--- OUTSIDE RECORDS SUMMARY | 2023-10-08 04:04 | External Medical Summary ---
Author Name Unknown Address Unknown Organization K09:[facility]ATORY [place] [address] Laboratory Report Ordering Provider Test Date Status ELDA MAREI 04/20/2023 09:20:05 Final Observation Date Value Abnormality Reference (Units ) Status Magnesium 04/20/2023 09:20:05 1.7 1.5-2.6 (m g/dL) Final Performing Location [facility] [place] [address]
--- OUTSIDE RECORDS SUMMARY | 2023-10-08 04:04 | External Medical Summary ---
Author Name Unknown Address Unknown Organization K09:[facility] [place] [address] Laboratory Report Ordering Provider Test Date Status MARLO BERNABE 04/20/2023 09:20:05 Final Observation Date Value Abnormality Reference (Units ) Status Bilirubin, Direct 04/20/2023 09:20:05 0.3 0. 0-0.3 (mg/dL) Final Performing Location [facility] [place] [address]
--- OUTSIDE RECORDS SUMMARY | 2023-10-08 04:04 | External Medical Summary | Summary of Care ---
Author Name Unknown Organization [facility] Address [address] [place] [address] Phone [phone] Care Team Providers Care Vessel Operator Name Role Phone Carson Gallardo DO Primary Care Provider Reason for Visit * Reason Onset Date Comments Advice 04/14/2023 Has some questio n for his provider. Encounter Details Date Type Department Care Team (Late st Contact Info) Description 04/14/2023 Telephone Family Practice [facility] [address] [facility] [place] [address] Carson Gallardo DO [address] [place] [address] Advice (Has some question for his provider.) Allergies Active Allergy Reactions Criticality Noted Date Comments Sulfamethoxazole-Trimethop rim Fever,Other (Please comment) 09/13/2019 documented as of this encounter (statuses as of 04/15/2023) Medications Medication Sig Dispensed Refills Start Date [...] BEDTIME 90 Tablet 3 08/13/2022 Active Ipratropium [place] 0.03 % Nasal Solution (Atrovent) ADMINISTER 2 [...] as of this encounter (statuses as of 04/15/2023) Active Problems Problem Noted Date Diagnosed Date [...] as of this encounter (statuses as of 04/15/2023) Resolved Problems Problem Noted Date Diagnosed Date Resolved Date Family history of malignant neoplasm of prostate 03/11/2018 08/31/2019 Impaired fasting glucose 04/11/201404/2020 Metabolon Quantose IR Resear Study*[id number] 01/20/2014 04/10/2014 Overview: METABOLON QUANTOSE IR STUDY. PROJECT: #[id number], GEAR SHAPER SET UP OPERATOR: Tarun Nieto MD/ Dejuan Magdaleno MD. SUMMARY: The Use of a Novel Insulin Resistance Test as a Monitoring Indicator of Glycemic Control in Prediabetics and Diabetics treated with metformin combined with lifestyle intervention. CONTACTS: During normal business hours, contact Lily Burgos RN, BSN at ; after hours Core Java Engineer via the [facility] foundation drill operator Impotence of organic origin 01/09/2014 08/31/2019 Epididymitis 01/09/2014 03/09/2017 Elevated prostate specific antigen (PSA) 01/09/2014 01/09/2014 Dry eye syndrome 12/31/2012 08/31/2019 Low testosterone 12/31/2012 08/31/2019 Family history of GI malignancy 07/09/2012 08/31/2019 Other specified hypothyroidism 08/19/2006 08/31/2019 ADVANCE DIRECTIVE INFORMATION 2006 08/31/2019 Overview: Information given to patient. DISC DIS HAO-FPT-SCLRCR - bulge L3-4, L4-5 02/21/2002 08/31/2019 FAM HX-DIABETES MELLITUS - Dad 01/31/1999 08/31/2019 Mixed dyslipidemia 02/01/1998 9 Overview: Per Lipid Taxonomy. Idiopathic urticaria 020 documented as of this encounter (statuses as of 04/15/2023) Immunizations Name Administration Dates Next Due COVID-19 [...] Telephone Encounter - Anjana Soto RN - 04/15/2023 9:28 AM EDT Called and spoke to patient. He states that he does not have a headache today, but had one for the last 5 days. Has not taken any tylenol because he said Dr Epstein advised him not to with his liver enzymes, industrial renderer told him not to take NSAIDs. Patient has brain MRI scheduled 04/18/23. Advised patient he can get flu and COVID vaccines- advised that he can technically get both at the same time but we advise having a week in between due to any side effects that could occur from either vaccine (recover from 1 vaccine before getting the other). Should also have a week between either vaccine and treatment. Patient states that he thinks he has an eye infection- eye is goopy and having a difficult time opening. He called his eye doctor and is waiting for a call back. Advised him that it will be ok to useantibiotic drops/ ointment if prescribed by eye doctor. Advised patient to call with any further questions/ concerns. He verbalized understanding. * Telephone Encounter - ANYI Diaz - 04/14/2023 3:26 PM EDT Susie Epstein MD Patient stated that he is getting a lot of headaches so what can be done about that, He is now just taking tylenol due to his heart doctor told him to stop taking advil. Patient stated that his heart doctor stated that the patient would need to know if he can her the flu vaccine and the COVID-019 booster with being on keytruda The cardio provider stated that it would be ok for him to say yes but it needs to come from his HEM/ONC provider. Pharmacy is the [facility] in [place]. He stated that he is being depressed a lot lately due to not being able to do anything and then he sits around doing nothing and then he starts to feel awful about himself. documented in this encounter Plan of Treatment Upcoming Encounters Date Type Department Care Team (Latest Contact Info) Description 04/18/2023 9:30 AM EDT Imaging Radiology [facility] [facility], [place] [address] [facility] [place] [address] 04/20/2023 9:10 AM EDT Laboratory Laboratory [facility] [address] [facility] [place] [phone] [place] Lab [address] [place] [address] 04/21/2023 9:00 AM EDT Office Visit Hematology/Oncolog y [facility] [address] [place] [address] Juanis Gonzalez CRNP [address] [place] [address] [place] [address] 04/21/2023 9:30 AM EDT Hem/Onc Treatment Hematology/Oncolog y [facility] [address] [place] [address] [place], Chair 6 Hem Onc Scenery [address] [place] [address] 04/22/2023 9:00 AM EDT Hospital Encounter OR [facility], Operating Room, [facility] - 4th Floor [address] [place] [address] Kaiden Armenta MD [address] [place], [place] [id number] 04/22/2023 9:00 AM EDT - 04/22/2023 9:55 AM EDT Surgery OR [facility], Operating Room, [facility] - 4th Floor 400 [facility] [place] [address] Kaiden Armenta MD [address] [place] [address] INSERT TUNNELED CENTRAL VENOUS ACCESS WITH SUBQ [place] 08/06/2023 8:20 AM EST Office Visit Family [facility] [address] [place] [address] Carson Gallardo DO [address] [place] [address] Scheduled Procedures Name Priority Associated Diagnoses Date/Ti [...] Documents on File Type Date Recorded Patient Orchid Worker Expl anation Advance Directives and Living Will 09/07/2017 LIVING WILL Latest Code Status on File Code Status Date Activated Date Inactivated Comments Full Code 03/04/2023 7:10 AM 03/04/2023 3:47 PM Question Answer Comments Discussion of Advance Directives occurred with: Not Discussed due to patient's condition Care Teams Vessel Operator Relationship Specialty Start Date End Date Carson Gallardo DO [address] [place] [address] PCP - General Family Medicine 07/18/19 documented as of this encounter
--- OUTSIDE RECORDS SUMMARY | 2023-10-08 04:04 | External Medical Summary ---
Author Name Unknown Address Unknown Organization K09:[facility] [place] [address] Laboratory Report Ordering Provider Test Date Status CHRIS MCCRAY 04/20/2023 09:20:05 Final Observation Date Value Abnormality Reference (Units ) Status SYNC LEUKOCYTES IN BLOOD BY AUTOMATED COUNT 04/20/2023 09:20:05 7.69 4.00-10.80 (K/uL) Final Segs 04/20/2023 09:20:05 45.5 40.0-75.0 (%) Final Lymphs % 04/20/2023 09:20:05 37.7 18.0-42.0 (%) Final Monos 04/20/2023 09:20:05 13.4 Above high normal 1.0-11.0 (%) Final Eosinophils 04/20/2023 09:20:05 3.3 0.0-6.0 (%) Final Basos 04/20/2023 09:20:05 0.1 0.0-2.0 (%) Final Absolute Segs 04/20/2023 09:20:05 3.50 1.80-7.70 (K/uL) Final Lymphs, absolute 04/20/2023 09:20:05 2.90 1.00-4.80 (K/ul) Final Monos, Abs 04/20/2023 09:20:05 1.03 0.00-1.10 (K/uL) Final Eos, Abs 04/20/2023 09:20:05 0.25 0.00-0.70 (K/uL) Final Basos, Abs 04/20/2023 09:20:05 0.01 0.00-0.20 (K/uL) Final Performing Location [place] [address]
--- OUTSIDE RECORDS SUMMARY | 2023-10-08 04:04 | External Medical Summary ---
Author Name Unknown Address Unknown Organization K09:[facility] [place] [address] Laboratory Report Ordering Provider Test Date Status CHRIS MCCRAY 04/20/2023 09:20:05 Final Observation Date Value Abnormality Reference (Units ) Status WBC, Total 04/20/2023 09:20:05 7.69 4.00-10.8 0 (K/uL) Final RBC 04/20/2023 09:20:05 4.12 4.50-5.25 (M/uL) Final Hemoglobin 04/20/2023 09:20:05 13.0 Below low normal 14 .0-16.8 (g/dL) Final HCT 04/20/2023 09:20:05 38.5 Below low normal 40. 0-48.4 (%) Final MCV 04/20/2023 09:20:05 93.4 82.0-99.5 (fL) Final MCH 04/20/2023 09:20:05 31.6 27.0-34.0 (pg) Final MCHC 04/20/2023 09:20:05 33.8 32.0-36.0 (g/dL) Final RDW 04/20/2023 09:20:05 12.7 11.5-15.5 (%) Final Platelets 04/20/2023 09:20:05 276 140-400 (K /uL) Final MPV 04/20/2023 09:20:05 9.3 6.6-11.1 ( fL) Final Performing Location [facility] [place] [address]
--- OUTSIDE RECORDS SUMMARY | 2023-10-08 04:04 | External Medical Summary | Summary of Care ---
Author Name Unknown Organization [facility] Address [address] [place] [address] Phone [phone] Care Team Providers Care Group Care Worker Name Role Phone Carson Gallardo Primary Care Provider Reason for Visit * Reason Comments Follow Up Encounter Details Date Type Department Care Team (Late st Contact Info) Description 04/13/2023 9:30 AM EDT Office Visit Cardiology, [facility] [address] [place] [address] Carlos Navarro DO [address] [place] [address] Aortic root enlargement (HCC)*; Typical atrial flutter (HCC); Atherosclerosis of both carotid arteries; Dyslipidemia, goal LDL below 100 Allergies Active Allergy Reactions Criticality Noted Date Comments Sulfamethoxazole-Trimethop rim Fever,Other (Please comment) 09/13/2019 documented as of this encounter (statuses as of 04/13/2023) Medications Medication Sig Dispensed Refills Start Date [...] 0 Active Eliquis 5 MG Oral Tablet (Apixaban)Indicat [...] BEDTIME 90 Tablet 3 08/13/2022 Active Ipratropium [place] 0.03 % Nasal Solution (Atrovent) ADMINISTER 2 [...] the morning. 30 Tablet 11 04/13/2023 Active Lisinopril 5 MG Oral Tablet (Prinivil) Take by mouth 1 Tablet in the evening. 90 Tablet 3 04/14/2022 3 Discontinue d(Adverse reaction) documented as of this encounter (statuses as of 04/13/2023) Active Problems Problem Noted Date Diagnosed Date [...] as of this encounter (statuses as of 04/13/2023) Resolved Problems Problem Noted Date Diagnosed Date Resolved Date Family history of malignant neoplasm of prostate 03/11/2018 08/31/2019 Impaired fasting glucose 04/11/201404/2020 Metabolon Quantose IR Resear Study*[id number] 01/20/2014 04/10/2014 Overview: METABOLON QUANTOSE IR STUDY. PROJECT: #[id number], FIREFIGHTER MARINE: Tarun Nieto MD/ Dejuan Magdaleno MD. SUMMARY: The Use of a Novel Insulin Resistance Test as a Monitoring Indicator of Glycemic Control in Prediabetics and Diabetics treated with metformin combined with lifestyle intervention. CONTACTS: During normal business hours, contact Lily Burgos RN, BSN at ; after hours Prepress Proofer via the [facility] roadability machine operator Impotence of organic origin 01/09/2014 08/31/2019 Epididymitis 01/09/2014 03/09/2017 Elevated prostate specific antigen (PSA) 01/09/2014 01/09/2014 Dry eye syndrome 12/31/2012 08/31/2019 Low testosterone 12/31/2012 08/31/2019 Family history of GI malignancy 07/09/2012 08/31/2019 Other specified hypothyroidism 08/19/2006 08/31/2019 ADVANCE DIRECTIVE INFORMATION 2006 08/31/2019 Overview: Information given to patient. DISC DIS [id number] - bulge L3-4, L4-5 02/21/2002 08/31/2019 FAM HX-DIABETES MELLITUS - Dad 01/31/1999 08/31/2019 Mixed dyslipidemia 02/01/1998 9 Overview: Per Lipid Taxonomy. Idiopathic urticaria 020 documented as of this encounter (statuses as of 04/13/2023) Immunizations Name Administration Dates Next Due COVID-19 [...] Sign Reading Time Taken Comments Blood Pressure 110/58 04/13/2023 9:24 AM EDT Pulse 76 04/13/2023 9:24 AM EDT Temperature - - Respiratory Rate - - Oxygen Saturation 96% 04/13/2023 9:24 AM EDT Inhaled Oxygen Concentration - - Weight 94.8 kg (209 lb) 04/13/2023 9:24 AM EDT Height - - Body Mass Index 29.99 03/11/2023 12:38 PM EDT documented in this encounter Progress Notes * Carlos Navarro, - 04/13/2023 9:27 AM EDT SUBJECTIVE: Patient returns today for follow up of paroxysmal atrial flutter, aortic root and ascending aortic enlargement. Diagnosed with malignant melanoma in February. Currently treated with Keytruda. Questioning PET/CT scan results reporting mild calcified atherosclerotic disease of the carotid vasculature. Feeling well from a cardiovascular perspective. Denies chest pain, palpitations, or shortness of breath. Reports intermittent lightheadedness since beginning Keytruda. Denies syncope or near syncope.No orthopnea, PND, or lower extremity edema. Questioning which lcwj-lyi-werbior pain relievers he may use. Was told to stop Tylenol per Oncology. ROS: All others negative other than those noted in the HPI. Cardiac history: Evaluated in the emergency department at [facility] 01/01/21 secondary shortness of breath and palpitations. Heart rate 130 beats per minute per his exercise watch. He proceeded to the emergency department where ECG confirmed presence of atrial flutter with 2 to 1 conduction. Spontaneously converted to sinus rhythm with IV fluids. Baseline lab studies including CMP, CBC, and TSH within normal limits. Troponin undetectable. ECG: Normal sinus rhythm, normal ECG 2D echocardiogram report April 03, 2023: The LV wall thickness is mildly increased (concentric). The left ventricular wall motion is normal. The qualitative LV ejection fraction is 55-59% (normal). The aortic root is moderately enlarged. (4.5 cm) The proximal ascending thoracic aorta is mildly enlarged. (4 cm) Compared to the previous study dated 04/02/2022, there has been no significant interval change. 2D echocardiogram report April 02, 2022: The left ventricular cavity size is normal. The LV wall thickness is mildly increased (concentric). The left ventricular wall motion is normal. The qualitative LV ejection fraction is 60-64% (normal). Mild aortic valve sclerosis is present. Mild aortic valve regurgitation is present. The aortic root is moderately enlarged. (4.5 cm) The proximal ascending thoracic aorta is mildly enlarged. (4.1 cm) Noting direct comparison to images of April 02, 2022, no appreciable change Exercise stress echo report 04/02/21: STRESSS STUDY: The stress echo is negative for inducible ischemia. The stress EKG response showed no evidence of ischemia. No arrhythmias were noted with stress. The resting heart rate of 61 beats per minute chemo to a maximal heart rate of 126 beats per minute. This value represents 84% the maximal age predicted heart rate. The heart rate response to exercise appropriately attenuated due to metoprolol therapy. RESTING STUDY: The qualitative LV ejection fraction is 55-59% (normal). Mild aortic valve regurgitation is present. The aortic root is moderately dilated with diameter of 4.4 cm. The proximal ascending aorta is mildly dilated with diameter 3.9 cm. 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, N13.8 H/O asbestos exposure Z77.090 Type 2 diabetes mellitus with hemoglobin A1c goal of less than 8.0% ([facility]) E11.9 History of positive PPD Z92.89 Diabetes mellitus with nephropathy ([facility]) E11.21 Aortic root enlargement ([facility]) I77.89 Typical atrial flutter ([facility]) I48.3 Malignant melanoma of face ([facility]) C43.30 Social History Tobacco Use Smoking status: Former Smoker Packs/day: 1.50 Years: 21.00 Pack years: 31.50 Types: Cigarettes Quit date: 10/04/1990 Years since quittin.5 Smokeless tobacco: Never Used Substance Use Topics Alcohol use: Yes Alcohol/week: 28.0 standard drinks Types: 28 12 oz of beer per week Drug use: No Vaping/E-Cigarette Use Vaping/E-Cigarette Use Never User Vaping/E-Cigarette Substances Vaping/E-Cigarette Devices Review of patient's allergies indicates: Allergen Reactions [...] by mouth every 6 hours as needed. Lisinopril 5 MG Oral Tablet (Prinivil) Take by mouth 1 Tablet in the evening. 90 Tablet 3 Eliquis 5 MG Oral Tablet (Apixaban) TAKE [...] MOUTH AT BEDTIME 90 Tablet 3 Ipratropium [place] 0.03 % Nasal Solution (Atrovent) ADMINISTER 2 [...] breakfast or other meds) 90 Tablet 3 No current facility-administered medications for this visit. Lipid Panel Results: Results for orders placed or performed in visit on 03/14/19 LIPID PANEL Result Value Ref Range HOURS FASTING >8 HOURS hours Triglycerides 105 0 - 174 mg/dL Cholesterol 183 <200 mg/dL HDL Cholesterol 81 >39 mg/dL NON-HDL CHOLESTEROL 102 0 - 159 mg/dL LDL Cholesterol 81 0 - 129 mg/dL Results for orders placed or performed in visit on 09/13/20 LIPID PANEL WITH DIRECT LDL IF TRIGLYCERIDE IS ELEVATED Result Value Ref Range Triglycerides 116 <=174 mg/dL Cholesterol 180 <200 mg/dL HDL Cholesterol 71 >39 mg/dL Non-HDL Cholesterol 109 <=159 mg/dL LDL Cholesterol 86 <=129 mg/dL Lab Results Component Value Date/Time TSH - [facility] 1.19 03/27/2023 01:04 PM TSH - [facility] 2.81 03/19/2023 11:40 AM TSH - [facility] 1.50 12/11/2022 08:39 AM TSH - [facility] 1.09 10/04/2018 02:32 PM TSH - [facility] 1.18 09/04/2017 11:59 AM TSH - [facility] 1.46 09/05/2016 09:01 AM CBC Results: Results for orders placed or performed in visit on 08/24/15 CBC Result Value Ref Range WBC 3.47 (L) 4.00 - 10.80 K/uL RBC 4.52 4.50 - 5.25 M/uL HGB 14.9 14.0 - 16.8 g/dL HCT 42.0 40.0 - 48.4 % MCV 92.9 82.0 - 99.5 fL MCH 33.0 27.0 - 34.0 pg MCHC 35.5 32.0 - 36.0 g/dL RDW 12.7 11.5 - 15.5 % Plt 176 140 - 400 K/uL MPV 10.0 6.6 - 11.1 fL OBJECTIVE/PHYSICAL EXAMINATION: BP 110/58 | Pulse 76 | Wt 94.8 kg (209 lb) | SpO2 96% | BMI 29.99 kg/m | BSA 2.16 m General: NAD, AAO x3, well nourished. HEENT: Normocephalic. Atraumatic. Conjunctiva pink, no scleral icterus. No carotid bruits, the carotid upstrokes are brisk. No JVD. No HJR Heart: Regular normal S-1 and S-2 no S-3 or S-4 gallop. No murmurs or rubs appreciated. PMI is not displaced. No RV heave.Lungs: Clear bilateral without rales , rhonchi, or wheeze. Abdomen: Normal bowel sounds. Soft. Nontender. No masses or organomegaly. No abdominal bruits. Extremities: No clubbing, cyanosis, or edema.Pulses: radial=2/4, Dorsalis pedis =2/4, posterior tibial=2/4. Neuro: No focal deficits. ASSESSMENT: 1. Paroxysmal atrial flutter with a [id number]-Alvw score of 2 secondary to age and hypertension. -Sinus rhythm per ECG -rare palpitations 2. HTN - controlled with borderline hypotension and intermittent lightheadedness. 3. Dyslipidemia - controlled, tolerating statin therapy 4. Moderate aortic root enlargement, 4.5cm / mild ascending aorta enlargement, 4.1 cm. -stable per echocardiogram April 03, 2023 5. Carotid atherosclerotic plaque per recent CT PLAN: Vasc duplex carotid bilat Natural history and pathophysiology of atrial flutter discussed. Indications for long-term anticoagulation reviewed. Patient agreeable to continue Eliquis and metoprolol. Avoid NSAIDs. Reduce lisinopril to 2.5 mg daily. Patient will monitor home blood pressure and contact me in 2 weeks with an update regarding symptoms. Consider discontinuation of Ramos inhibitor in future if lightheadedness does not improve. Continue atorvastatin. Update lipid panel summer 2023. Results of recent echocardiogram reviewed. Patient reassured. Repeat echocardiogram in 1 year. Follow Up: Return in about 6 months (around 10/13/2023). I spent a total of 40-54 minutes (exact time 40 mins) on the date of service in preparation, delivery, and documentation of the care provided to Dylan Owen excluding any time spent in the performance of separately billed services. Carlos Navarro DO, [facility] Associate Cardiology - [facility] documented in this encounter Nursing Notes * Pau Palafox CMA - 04/13/2023 9:23 AM EDT Examination Room: 13 Name: Dylan Owen Date of : (1950) Reason for Visit: 1 yr Interim Hospitalization(s): none Problems/Concerns: denied Chest Pain/SOB: denied My [facility] is a way you can talk to your provider online through e-mail. Would you like to sign up? I can activate it for you? ALREADY ACTIVE Patient was instructed to not get up on the exam table until directed and assisted by their provider; patient is to remain seated in the chair/ wheelchair/ exam table for fall prevention and safety reasons. Patient is aware to have assistance to step down off exam table with personnel. Patient voiced full comprehension of instructions. documented in this encounter Miscellaneous Notes * Addendum Note - ANTONIO Gordon - 04/13/2023 10:20 AM EDTAddended by: MILENA WALKER on: 04/13/2023 10:20 AM Modules accepted: Orders documented in this encounter Plan of Treatment Upcoming Encounters Date Type Department Care Team (Latest Contact Info) Description 04/18/2023 9:30 AM EDT Imaging Radiology [facility] 1st [facility] [address] [facility] [address] 04/21/2023 8:30 AM EDT Laboratory Laboratory [facility] [address] [place] [id number] Danielle, Lab Scenery [address] [place] [address] 04/21/2023 9:00 AM EDT Office Visit Hematology/Oncolog y Scenery [place] [address] [place] [address] Milena Gonzalez, [facility] [address] [facility] [place] [address] 04/21/2023 9:30 AM EDT Hem/Onc Treatment Hematology/Oncolog y Treatment, [place] [address] [place] [address] Danielle, Chair 6 Hem Onc Scenery [address] [place] [address] 04/22/2023 9:00 AM EDT Hospital Encounter OR [facility], Operating Room, [facility] - 4th Floor [address] [place] [address] Kaiden Armenta MD [address] [facility] [place] [address] 04/22/2023 9:00 AM EDT - 04/22/2023 9:55 AM EDT Surgery OR [facility], Operating Room, [facility] - 4th Floor [address] [place] [address] Kaiden Armenta MD [address] [place] [address] INSERT TUNNELED CENTRAL VENOUS ACCESS WITH SUBQ PORT 08/06/2023 8:20 AM EST Office Visit [facility] [address] [place] [address] Carson Gallardo, [address] [place] [address] Scheduled Orders Name Type Priority Associated Diagnoses Orde r Schedule VASC DUPLEX CAROTID BILAT Medical Imaging Routine Atherosclerosis of both carotid arteries Expected: 04/14/2023, Expires: 05/14/2024 EKG EKG Routine Typical atrial flutter (HCC) Ordered: 04/13/2023 Scheduled Procedures Name Priority Associated Diagnoses Date/Ti [...] as of this encounter Visit Diagnoses Diagnosis Aortic root enlargement (HCC)- Primary Other specified disorders of arteries and arterioles Typical atrial flutter (HCC) Atrial flutter Atherosclerosis of both carotid arteries Occlusion and stenosis of carotid artery without mention of cerebral infarction Dyslipidemia, goal LDL below 100 Other and unspecified hyperlipidemia Malignant melanoma of face (HCC) Malignant melanoma of skin of other and unspecified parts of face documented in this encounter Advance Directives Documents on File Type Date Recorded Patient Road Maker Expl anation Advance Directives and Living Will 09/07/2017 LIVING WILL Latest Code Status on File Code Status Date Activated Date Inactivated Comments Full Code 03/04/2023 7:10 AM 03/04/2023 3:47 PM Question Answer Comments Discussion of Advance Directives occurred with: Not Discussed due to patient's condition Care Teams Group Care Worker Relationship Specialty Start Date End Date Carson Gallardo DO [address] [place] [address] PCP - General Family Medicine 07/18/19 documented as of this encounter"
--- OUTSIDE RECORDS SUMMARY | 2023-10-08 04:04 | External Medical Summary | Summary of Care ---
Author Name Unknown Organization [facility] Address [address] [place] [address] Phone [phone] Care Team Providers Care A And P Technician Name Role Phone Carson Gallardo Primary Care Provider Reason for Visit * Reason Comments Follow Up Encounter Details Date Type Department Care Team (Late st Contact Info) Description 04/13/2023 9:30 AM EDT Office Visit Cardiology, [facility] [address] [place] [address] Carlos Navarro DO [address] [place] [address] Aortic root enlargement (HCC)*; Typical atrial flutter [...] BEDTIME 90 Tablet 3 08/13/2022 Active Ipratropium [place] 0.03 % Nasal Solution (Atrovent) ADMINISTER 2 [...] fasting glucose 04/11/201404/2020 Metabolon Quantose IR Resear Study*[id number] 01/20/2014 04/10/2014 Overview: METABOLON QUANTOSE IR STUDY. PROJECT: #[id number], AUTOMOBILE SPRING REPAIRER: Tarun Nieto MD/ Dejuan Magdaleno MD. SUMMARY: The Use of a Novel Insulin Resistance Test as a Monitoring Indicator of Glycemic Control in Prediabetics and Diabetics treated with metformin combined with lifestyle intervention. CONTACTS: During normal business hours, contact Lily Burgos RN, BSN at ; after hours Overhead Crane Technician via the [facility] booster operator Impotence of organic origin 01/09/2014 08/31/2019 Epididymitis 01/09/2014 03/09/2017 Elevated prostate specific antigen (PSA) 01/09/2014 01/09/2014 Dry eye syndrome 12/31/2012 08/31/2019 Low testosterone 12/31/2012 08/31/2019 Family history of GI malignancy 07/09/2012 08/31/2019 Other specified hypothyroidism 08/19/2006 08/31/2019 ADVANCE DIRECTIVE INFORMATION 2006 08/31/2019 Overview: Information given to patient. DISC DIS [id number] - bulge L3-4, L4-5 02/21/2002 08/31/2019 FAM [...] PND, or lower extremity edema. Questioning which iqik-mqd-mznunlt pain relievers he may use. Was told to stop Tylenol per Oncology. ROS: All others negative other than those noted in the HPI. Cardiac history: Evaluated in the emergency department at [facility] 01/01/21 secondary shortness of breath and palpitations. [...] hemoglobin A1c goal of less than 8.0% ([facility]) E11.9 History of positive PPD Z92.89 Diabetes mellitus with nephropathy ([facility]) E11.21 Aortic root enlargement ([facility]) I77.89 Typical atrial flutter ([facility]) I48.3 Malignant melanoma of face ([facility]) C43.30 Social History Tobacco Use Smoking [...] MOUTH AT BEDTIME 90 Tablet 3 Ipratropium [place] 0.03 % Nasal Solution (Atrovent) ADMINISTER 2 [...] ASSESSMENT: 1. Paroxysmal atrial flutter with a [id number] score of 2 secondary to age and [...] of separately billed services. Carlos Navarro DO, [facility] Associate Cardiology - [facility] documented in this encounter Nursing Notes * [...] Description 04/18/2023 9:30 AM EDT Imaging Radiology [facility] 1st [facility] [address] [facility] [address] 04/21/2023 8:30 AM EDT Laboratory Laboratory [facility] [address] [place] [phone] Danielle, Lab Scenery [address] [place] [address] 04/21/2023 9:00 AM EDT Office Visit Hematology/Oncolog y Sc[place] [address] [place] [address] Milena Gonzalez, NELLI [address] [facility] [place] [address] 04/21/2023 9:30 AM EDT Hem/Onc Treatment Hematology/Oncolog y Treatment, [place] [address] [place] [address] Danielle, Chair 6 Hem Onc Scenery [address] [place] [address] 04/22/2023 9:00 AM EDT Hospital Encounter OR [facility], Operating Room, [facility] - 4th Floor [address] [place] [address] Kaiden Armenta MD [address] [facility] [place] [address] 04/22/2023 9:00 AM EDT - 04/22/2023 9:55 AM EDT Surgery OR [facility], Operating Room, [facility] - 4th Floor [address] [place] [address] Kaiden Armenta MD [address] [place] [address] INSERT TUNNELED CENTRAL VENOUS ACCESS WITH SUBQ [place] 08/06/2023 8:20 AM EST Office Visit [facility] [address] [place] [address] Carson Gallardo, [address] [place] [address] Scheduled Orders Name Type Priority Associated Diagnoses [...] Documents on File Type Date Recorded Patient Bank Teller Machine Mechanic Expl anation Advance Directives and Living Will 09/07/2017 LIVING WILL Latest Code Status on File Code Status Date Activated Date Inactivated Comments Full Code 03/04/2023 7:10 AM 03/04/2023 3:47 PM Question Answer Comments Discussion of Advance Directives occurred with: Not Discussed due to patient's condition Care Teams A And P Technician Relationship Specialty Start Date End Date Carson Gallardo DO [address] [place] [address] PCP - General Family Medicine 07/18/19 documented as of this encounter"
--- OUTSIDE RECORDS SUMMARY | 2023-10-08 04:04 | External Medical Summary ---
Author Name Unknown Address Unknown Organization K01:[facility] - [address] [place] [address] Laboratory Report Ordering Provider Test Date Status ELDA MARIE 04/20/2023 09:20:05 Final Observation Date Value Abnormality Reference (Units ) Status Vitamin B12 04/20/2023 09:20:05 [phone] (pg/mL) Final Performing Location [facility] - [address] [place] [address]
--- OUTSIDE RECORDS SUMMARY | 2023-10-08 04:04 | External Medical Summary ---
Author Name Unknown Address Unknown Organization [facility] [address] [place] [address] Laboratory Report Ordering Provider Test Date Status CHRIS MCCRAY 04/20/2023 09:20:05 Final Observation Date Value Abnormality Reference (Units ) Status BUN 04/20/2023 09:20:05 9 6-20 (mg/dL) Final Creatinine 04/20/2023 09:20:05 0.9 0.6-1.2 (mg/dL) Final Glomerular filtration rate/1.73 sq M.predicted [Volume Rate/Area] in Serum, Plasma or Blood by Creatinine-based formula (CKD-EPI) 04/20/2023 09:20:05 >90 >=60 (mL/min) Final eGFR is calculated based on the CKD-EPI 2020 equation SODIUM 04/20/2023 09:20:05 133 Below low normal 135 -146 (mmol/L) Final Potassium 04/20/2023 09:20:05 4.1 3.5-5.1 (m mol/L) Final Cl 04/20/2023 09:20:05 98 98-107 (mm ol/L) Final CO2 04/20/2023 09:20:05 26 22-32 (mmo l/L) Final Anion gap 04/20/2023 09:20:05 9 7-15 (mmol /L) Final Glucose 04/20/2023 09:20:05 144 Above high normal 70 -120 (mg/dL) Final Albumin 04/20/2023 09:20:05 4.3 3.8-5.0 (g /dL) Final AST (Aspartate aminotransferase) 04/20/2023 09:20:05 29 10-50 (U/L) Fin al Alk Phos 04/20/2023 09:20:05 120 35-130 (U/ L) Final Bilirubin, Total 04/20/2023 09:20:05 0.9 <=1 .2 (mg/dL) Final Calcium 04/20/2023 09:20:05 9.7 8.4-10.2 ( mg/dL) Final Protein 04/20/2023 09:20:05 7.4 6.0-8.3 (g /dL) Final ALT (Alanine aminotransferase) 04/20/2023 09:20:05 31 10-50 (U/L) Rodrick crocker Performing Location [facility] [id number] [place] [address]
[2023-10-08 04:14] LABS: Albumin Globulin Ratio 0.8 (0.9-2); Albumin Level 2.8 gm/dl (3.4-5.0); BUN Creatinine Ratio 11.4 (10-20); Bilirubin,Total 0.9 mg/dl (0.2-1.0); Calcium 8.1 mg/dl (8.6-10.3); Creatinine Clr Calc Pharmacy 84.3 ml/min; Est GFR (African American) 99.5 ml/min; Est GFR (Non-African American) 85.8 ml/min; Globulin 3.5 gm/dl (2.5-4.0); Magnesium 1.8 mg/dl (1.7-2.4); Phosphorus 3.5 mg/dl (2.5-4.9); Potassium 3.6 mmol/L (3.5-5.1); Total Protein 6.3 gm/dl (6.0-8.3)
[2023-10-08 04:29] LABS: Thyroid Stimulating Hormone 5.069 uIu/ml (0.300-4.500)
[2023-10-08 05:03] LABS: T4 Free Thyroxine 0.96 ng/dl (0.61-1.60)
[2023-10-08 05:43] LABS: Folate (Folic Acid),Ser orPlas > 22.30 ng/ml (>5.38)
[2023-10-08 05:44] LABS: Vitamin B12 272 pg/ml (180-914)
[2023-10-08 06:11] LABS: Basophils # (auto) 0.01 K/uL (0.00-0.20); Basophils % (auto) 0.3 %; Hemoglobin 8.3 g/dl (14.0-18.0); Immature Granulocytes # (auto) 0.04 K/uL (0.01-0.20); Immature Granulocytes % (auto) 1.2 %; Lymphocytes # (auto) 1.03 K/uL (1.20-3.40); Lymphocytes % (auto) 31.6 %; Mean Corpuscular Hemoglobin 28.3 pg (25.0-34.0); Mean Corpuscular Hgb Conc 33.2 g/dL (32.0-36.0); Mean Corpuscular Volume 85.3 fL (80.0-100.0); Monocytes # (auto) 0.43 K/uL (0.11-0.59); Monocytes % (auto) 13.2 %; Neutrophils # (auto) 1.75 K/uL (1.40-6.50); Neutrophils % (auto) 53.7 %; Nucleated RBC # (auto) 0.04 K/uL (0.00-0.12); Nucleated RBC % (auto) 1.2 %; Polychromasia 1+; RDW Coefficient of Variation 14.6 % (11.5-14.5); RDW Standard Deviation 44.8 fL (36.4-46.3); Red Blood Count 2.93 M/uL (4.70-6.10); White Blood Count 3.26 K/ul (4.8-10.8)
[2023-10-08 06:13] LABS: Platelet Count 23 K/uL (130-400)
[2023-10-08 07:05] LABS: Estimated Average Glucose 154 mg/dl
[2023-10-08] MEDS: VANCOMYCIN HCL 1,250 MG in SODIUM CHLORIDE 0.9% 250 ML IV SCH (07:19)
--- NOTE | 2023-10-08 07:43 | Ultrasound Report ---
ABDOMINAL ULTRASOUND, RIGHT UPPER QUADRANT HISTORY: Acutely elevated LFTs transaminitis. COMPARISON: CT abdomen and pelvis 11/28/2011 FINDINGS: Pancreas: The pancreas demonstrates a normal echotexture. Liver: Heterogeneous measuring 18 cm in length. Increased parenchymal echogenicity with poor through transmission. There is ill-defined echogenic focus within the lateral left hepatic lobe measuring 1.1 cm without color flow. Patent portal vein. Gallbladder: Cholelithiasis. The bladder wall is upper limits of normal 3 mm. No pericholecystic flui d. Negative sonographic Walters's sign. CBD: 0.5 cm. Right kidney: 2.4 cm cyst of the interpolar right kidney. No hydronephrosis. IMPRESSION: 1. Cholelithiasis with borderline gallbladder wall thickening. No pericholecystic fluid identified an d the sonographic Walters sign was reported as negative. 2. No biliary ductal dilation. 3. Indeterminate 1.1 cm echogenic focus within the left lobe of the liver, possibly a hepatic hemangi martita. ACT 112: Negative or not required by law. Electronically signed by: Selvin Olguin M.D. 10/08/2023 7:41 AM
[2023-10-08] MEDS: LEVOTHYROXINE SODIUM 88 MCG TABLET PO SCH (07:46)
[2023-10-08] MEDS: LORATADINE 10 MG TAB PO SCH (10:09)
[2023-10-08] MEDS: CEROVITE ADV FORMULA TAB PO SCH (10:09)
[2023-10-08] MEDS: METOPROLOL SUCC 25MG EXT REL TAB PO SCH (10:09)
[2023-10-08] MEDS: PANTOprazole 40 MG TAB PO SCH (10:09)
[2023-10-08] MEDS: TAMSULOSIN HCL 0.4 MG CAP PO SCH (10:10)
[2023-10-08] MEDS: POTASSIUM CHLORIDE CRTAB 20 MEQ TABCR PO STA (10:16)
[2023-10-08] MEDS: CYANOCOBALAMIN (B-12) 500 MCG TABLET PO SCH (10:32)
--- OUTSIDE RECORDS SUMMARY | 2023-10-08 12:02 | External Medical Summary | Summary of Care ---
Author Name Unknown Organization [facility] Address [address] [place] [address] Phone [phone] Care Team Providers Care Dryer Operator Name Role Phone Jocelyn Bro DO Primary Care Provider Reason for Visit * Reason Onset Date Comments Test Results Lab 10/07/2023 Encounter Details Date Type Department Care Team (Late st Contact Info) Description 10/07/2023 Telephone Hematology/Oncology [facility] [address] [place] [phone] Susie Epstein MD [address] [place] [address] Test Results Lab Allergies Active Allergy Reactions Criticality Noted Date Comments Sulfamethoxazole-Trimethop rim Fever,Other (Please comment) 09/13/2019 documented as of this encounter (statuses as of 10/07/2023) Medications Medication Sig Dispensed Refills Start Date [...] Anxiety. 30 Tablet 0 08/19/2023 Active Ipratropium [place] 0.03 % Nasal Solution (Atrovent) Administer 2 Sprays into nostril in the morning and 2 Sprays before bedtime. 30 mL 3 09/16/2023 Active Additional Information Patient taking differently:2 SprayEach NostrilBID (.AM/PM), Reported on 10/02/2023 Systane Ultra 0.4-0.3 % Ophthalmic Solution (Artificial Tears) Instill 1 Drop into both eyes as needed for Dry eyes. 0 Active documented as of this encounter (statuses as of 10/07/2023) Active Problems Problem Noted Date Diagnosed Date [...] as of this encounter (statuses as of 10/07/2023) Resolved Problems Problem Noted Date Diagnosed Date Resolved Date Family history of malignant neoplasm of prostate 03/11/2018 08/31/2019 Impaired fasting glucose 04/11/201404/2020 Metabolon Quantose IR Resear Study*[id number] 01/20/2014 04/10/2014 Overview: METABOLON QUANTOSE IR STUDY. PROJECT: #[id number], OFFICE AUTOMATION CLERK: Tarun Nieto MD/ Dejuan Magdaleno MD. SUMMARY: The Use of a Novel Insulin Resistance Test as a Monitoring Indicator of Glycemic Control in Prediabetics and Diabetics treated with metformin combined with lifestyle intervention. CONTACTS: During normal business hours, contact Lily Burgos RN, BSN at ; after hours [facility] [employer] [facility] via the [facility] cement crusher operator Impotence of organic origin 01/09/2014 08/31/2019 Epididymitis 01/09/2014 03/09/2017 Elevated prostate specific antigen (PSA) 01/09/2014 01/09/2014 Dry eye syndrome 12/31/2012 08/31/2019 Low testosterone 12/31/2012 08/31/2019 Family history of GI malignancy 07/09/2012 08/31/2019 Other specified hypothyroidism 08/19/2006 08/31/2019 ADVANCE DIRECTIVE INFORMATION 2006 08/31/2019 Overview: Information given to patient. DISC DIS ATP-[id number] - bulge L3-4, L4-5 02/21/2002 08/31/2019 FAM HX-DIABETES MELLITUS - Dad 01/31/1999 08/31/2019 Mixed dyslipidemia 02/01/1998 9 Overview: Per Lipid Taxonomy. Idiopathic urticaria 020 documented as of this encounter (statuses as of 10/07/2023) Immunizations Name Administration Dates Next Due COVID-19 [...] Telephone Encounter - Danilo Reeves RN - 10/07/2023 12:43 PM EDT Called patient and advised him to go to the ER per Dr. Anderson recommendations. Called [facility] ER, spoke with charge nurse Kiran, report given. * Telephone Encounter - Danilo Reeves RN - 10/07/2023 12:36 PM EDT ----- Message from Susie Epstein MD sent at 10/06/2023 2:36 PM EDT ----- Sodium is 127 with increasing LFTs and decreasing platelet counts and hemoglobin level. He is also complaining of generalized weakness and episode of fever. It is better for him to go to the ED for evaluation all the blood culture and viral PCR are negative. documented in this encounter Plan of Treatment Upcoming Encounters Date Type Department Care Team (Late st Contact Info) Description 10/19/2023 10:00 AM EDT Office Visit Hematology/Oncology [facility] [address] [place] [phone] Susie Epstein MD [address] [place] [address] 10/20/2023 2:20 PM EDT Office Visit Family Practice [address] [place] [address] Jocelyn Bro DO [address] [place] [address] Scheduled Procedures Name Priority Associated Diagnoses Date/Ti [...] this encounter Medical Devices Implanted Type Area Vault Maker Device Identifier Shelf Expiration Date Model / Serial / Lot Port Implant W/8f Poly Cath - [id number] Implanted:Qty : 1 on 04/22/2023 by Kaiden Armenta MD at OR [facility] Right: Chest CR BARD : PERIPHERAL VASCULAR [id number] 11/19/2024 [id number] / / [id number] documented as of this encounter Advance Directives Documents on File Type Date Recorded Patient Iuss Master Analyst Expl anation Advance Directives and Living Will 09/07/2017 LIVING WILL Latest Code Status on File Code Status Date Activated Date Inactivated Comments Full Code 03/04/2023 7:10 AM 03/04/2023 3:47 PM Question Answer Comments Discussion of Advance Directives occurred with: Not Discussed due to patient's condition Care Teams Dryer Operator Relationship Specialty Start Date End Date Jocelyn Bro DO [address] [place] [address] PCP - General Family Medicine 10/02/23 documented as of this encounter
--- NOTE | 2023-10-08 12:12 | Infectious Disease Consult ---
<Statement entered by Chapin Angela, DO - 10/08/23 16:27> ATTESTATION: I saw and evaluated the patient today. I have reviewed the trainee note and ag ree. My additional thoughts/findingsor any changes to the planare listed below. CLINICAL TEAM: Infectious Diseases Team 4 HISTORY OF PRESENT ILLNESS: [facility] from [facility] and [facility]. The patient follow with Oncology at [facility] for invasive melanoma of the cheek and is being treated with Keytruda. About ten days ago the patient presented to Hematology/Oncology and complained of fever. He saw Oncology and they ordered a CT C/A/P which was notable for splenomegaly but otherwise negative for acute pathology. Labs were notable for hyponatremia, elevated LFTs, thrombocytopenia and anemia. Blood cultures, urine culture, HepC AB and RVP were all negative. Ketruda was held. The patient was admitted to [facility]. TTE was negative for valvular disease. BCX from [facility] are NGTD. The patient denies any recent travel, unusual hobbies, recent tick bites/rashes, etc. IMPRESSION: 1. Melanoma (on Keytruda) 2. Fever 3. Cytopenias/hyponatremia 4. Splenomegaly RECOMMENDATIONS: Etiology of the fever is not clear. There are no localizing signs/symptoms and the patient does not have any unusual exposures. Workup to date has been unremarkable (including BCX and CT C/A/P). Ketruda can cause cytopenias and hepatotoxicity. But, until we know for sure, I think treating empirically for a tickborne infection is reasonable. Assuming that the QTc is acceptable, this would include doxycycline plus azithromycin plus atovaquone. Follow up the anaplasma and babesia PCRs. If possible add a rickettsia panel. Consult Hematology to rule out a primary hematologic process and monitor for complications (eg [facility]). Continue broad spectrum antibacterials until BCX are finalized. Screen for EBV, CMV, HIV, parvovirus. COMMENT(S): Contact Infectious Diseases as needed for updated recommendations (use the on- call schedule to find out who is covering your facility). REVENUE MANAGEMENT: I spent a total of 80 minutes coordinating, documenting, andproviding care for this patient excluding time spent in performance ofseparately billed services. Date of Service October 08, 2023 Telehealth Information I performed this visit using a real-time telehealth connection between my location and the patients location ([facility]). After connecting through interactive tele-video, patient was identified by name and date of and/or wristband check.Patient (or authorized healthcare containers sales representative) was informed that this was a telemedicine visit and it was being conducted confidentially over secure lines. My office door was closed and no one else was present in the room with me.Patient (or authorized healthcare containers sales representative) provided consent to proceed with the visit, expressed an understanding of privacy and security of the telemedicine visit, and gave permission to have a hospital containers sales representative in the room in order to assist with the visit and to conduct portions of the visit, as needed. I informed the patient (or authorized healthcare containers sales representative) that I reviewed their record and presented the opportunity for them to ask any questions regarding the visit today. The patient agreed to participate. Assessment & Plan (1) Febrile illness: (2) Pancytopenia: Plan Patient presenting with worsening malaise found to have pancytopenia. He has multiple risk factors for tick-borne illness is given frequent walks and endorse/outdoor animals. Babesia and anaplasma testing is pending. Parvovirus can cause a similar picture and he has contact with his grandchildren. Additionally, he has never been diagnosed with EBV and he was found to have splenomegaly on abdominal imaging. EBV can cause a similar picture. There is always the concern that he could have a hematologic malignancy. This could also be secondary to keytruda. -Check parvovirus IgG, IgM -Check EBV serologies and PCR -F/u babesia and anaplasma testing: start doxycycline 100 BID, azithromycin 500 mg IV daily, and atovaquone 750 q12 (can stop if testing is negative) -F/u blood cultures -Okay to continue vanc/cefepime for now -Recommend heme consultation to evaluate for primary bone marrow issue History of Present Illness History of Present Illness Pt w/ PMHx T2DM, PAF, melanoma of left cheek (on keytruda q3 weeks). Patient presented after having persistent fevers as an outpatient. They have been ongoing for 16 days. Fevers were initially intermittent but have lately been more persistent. Tmax at home was 103.1. He is complaining of dry cough, SOB, weakness, headache, and dizziness. Labs were significant for WBC 3.26, platelet 23, positive lyme testing (previously diagnosed, however), LDH 758, negative RVP, AST 94, ALT 54. Tmax inpatient was 38.3 C yesterday but today has been afebrile. Blood cultures were collected. He is currently receiving vancomycin and cefepime. Anaplasma and babesia testing are pending. Chest CT was unremarkable. Liver ultrasound showed cholelithiasis with some mild wall thickening. TTE showed no significant valvular disease. Allergies Allergy/AdvReac Type Severity Reaction Status Date / Time Sulfa (Sulfonamide Allergy Unknown Unknown Unverified 10/07/23 17:12 Antibiotics) Home Medications Medication Instructions Recorded Confirmed Type atorvastatin 80 mg tablet (Lipitor) 80 mg PO HS 01/01/21 10/07/23 History levothyroxine 88 mcg tablet 88 mcg PO QAM 01/01/21 10/07/23 History (Synthroid) loratadine 10 mg tablet (Claritin) 10 mg PO QAM 01/01/21 10/07/23 History apixaban 5 mg tablet (Eliquis) 5 mg PO BID 06/20/22 10/07/23 History ipratropium bromide 21 mcg (0.03 2 spray intranasal BID 06/20/22 10/07/23 History %) nasal spray metoprolol succinate 25 mg 25 mg PO QAM 06/20/22 10/07/23 History tablet,extended release 24 hr fqcrzbhwydlc-kjoayqiy-rquvei tablet 1 tab PO QAM 06/20/22 10/07/23 History omega-3 fatty acids 1,000 mg PO TID 06/20/22 10/07/23 History omeprazole magnesium 20 mg 20 mg PO QAM 06/20/22 10/07/23 History tablet,delayed release (Prilosec OTC) psyllium 1 packet PO BID 06/20/22 10/07/23 History acetaminophen 500 mg tablet 500 mg PO Q6H PRN PAIN OR FEVER 10/07/23 10/07/23 History lisinopril 2.5 mg tablet 2.5 mg PO QPM 10/07/23 10/07/23 History melatonin 3 mg tablet 3 mg PO HS PRN Insomnia 10/07/23 10/07/23 History metformin 500 mg tablet,extended 1,000 mg PO QPM 10/07/23 10/07/23 History release 24 hr Patient History Medical History (Updated 10/08/23 @ 08:[address]) History of Lyme disease SUMMER 2021 Acid reflux Atrial flutter DX DECEMBER 2020 Hypothyroid Hyperlipidemia Hypertension Surgical History History of left cataract extraction History of lumbar spinal fusion History of endoscopy History of colonoscopy Family History Father Family history of diabetes mellitus Mother Family history of diabetes mellitus Other Family history of colon cancer in mother Social History Smoking Status: Never smoker Second Hand Exposure: No; Do You Dip or Chew Tobacco: No; Hx Alcohol Use: Yes Alcohol type: beer Hx Substance Use: No Preferred Language: Uzbek Communication Ability: Effective Programmer Analyst Health It Required: No Beliefs That Will Affect Care: None Current Living Situation: Spouse Current Living Situation Comment: [facility] Feels Safe at Home: Yes Assistive Devices: None Review of Systems Full ROS was performed and is negative unless mentioned in the HPI. Physical Exam Limited by telemed Alert and oriented Generally well appearing Results & Data Vital Signs (Past 12 Hours) Vital Signs Temp Pulse Pulse Resp BP BP Pulse Ox 10/08/23 07:12 85 10/08/23 05:42 87 20 162/67 H 98 10/08/23 05:37 37.4 C 84 18 162/67 H 100 10/08/23 00:37 37.4 C 84 18 124/64 91 O2 Del Method O2 Flow Rate 10/08/23 07:12 10/08/23 05:42 Nasal Cannula 2 10/08/23 05:37 Nasal Cannula 2 10/08/23 00:37 Room Air Laboratory Results Laboratory Results - last 72 hr 10/07/23 10/07/23 10/07/23 14:30 18:43 22:23 WBC 4.13 L RBC 3.19 L Hgb 9.0 L Hct 26.9 L MCV 84.3 MCH 28.2 MCHC 33.5 RDW Std Deviation 45.1 RDW Coeff of Keron 14.7 H Plt Count 44 L MPV 12.8 H Immature Gran % (Auto) Neut % (Auto) Lymph % (Auto) [place] % (Auto) Eos % (Auto) Baso % (Auto) Reticulocyte % (Auto) 1.72 Neut # (Auto) Lymph # (Auto) [place] # (Auto) Eos # (Auto) Baso # (Auto) Reticulocyte # 0.050 Immature Gran # (Auto) Absolute Nucleated RBC 0.06 Nucleated RBC % (auto) 1.5 Neutrophils % (Manual) 54 Lymphocytes % (Manual) 10 Reactive Lymphs % (Man) 30 Monocytes % (Manual) 6 Neutrophils # (Manual) 2.23 Total Absolute Neuts 2.23 Lymphocytes # (Manual) 0.41 L Reactive Lymphs # 1.24 Total Abs Lymphocytes 1.65 Monocytes # (Manual) 0.25 Toxic Vacuolation 2+ Polychromasia 1+ Echinocytes 2+ Peripher Smr Path Cons PT 11.8 INR 1.1 APTT 37 H PTT Ratio 1.3 Sodium 127 L Potassium 3.8 Chloride 97 L Carbon Dioxide 25 Anion Gap 5 BUN 10 Creatinine 0.79 Est Cr Clr Drug Dosing 93.9 Est GFR ( Amer) 104.0 Est GFR (Non-Af Amer) 89.7 BUN/Creatinine Ratio 12.7 Glucose 105 H POC Glucose 128 H Estimat Average Glucose Hemoglobin A1c Lactate 1.2 Calcium 8.8 Phosphorus Magnesium Iron TIBC Unsaturated IBC Transferrin % Sat Total Bilirubin 1.0 AST 102 H ALT 62 H Alkaline Phosphatase 116 H Lactate Dehydrogenase 758 H Total Protein 6.9 Albumin 3.2 L Globulin 3.7 Albumin/Globulin Ratio 0.9 Vitamin B12 Folate Procalcitonin 0.25 TSH Free T4 Urine Color Urine Appearance Urine pH Ur Specific [place] Urine Protein Urine Glucose (UA) Urine Ketones Urine Blood Urine Nitrite Urine Bilirubin Urine Urobilinogen Ur Leukocyte Esterase Adenovirus (PCR) Not Detected Anaplasma Smear See Comment Babesia Smear See Comment B. pertussis DNA (PCR) Not Detected B.parapertussis DNA PCR Not Detected Lyme Disease Screen Positive H Lyme Disease IgG Ab Positive H Lyme Disease IgM Ab Negative C. pneumoniae DNA (PCR) Not Detected Coronavirus OC43 (PCR) Not Detected Coronavirus HKU1 (PCR) Not Detected Coronavirus 229E (PCR) Not Detected SARS-CoV-2 (PCR) Not Detected Coronavirus NL63 (PCR) Not Detected Human Metapneumovir PCR Not Detected Influenza Type A (PCR) Not Detected Influenza Type B (PCR) Not Detected M. pneumoniae (PCR) Not Detected Parainfluenza 1 (PCR) Not Detected Parainfluenza 2 (PCR) Not Detected Parainfluenza 3 (PCR) Not Detected Parainfluenza 4 (PCR) Not Detected RSV (PCR) Not Detected Entero/Rhino (PCR) Not Detected 10/07/23 10/08/23 10/08/23 Unknown 03:05 07:25 WBC 3.26 L RBC 2.93 L Hgb 8.3 L Hct 25.0 L MCV 85.3 MCH 28.3 MCHC 33.2 RDW Std Deviation 44.8 RDW Coeff of Keron 14.6 H Plt Count 23 L* MPV Immature Gran % (Auto) 1.2 Neut % (Auto) 53.7 Lymph % (Auto) 31.6 [place] % (Auto) 13.2 Eos % (Auto) 0.0 Baso % (Auto) 0.3 Reticulocyte % (Auto) Neut # (Auto) 1.75 Lymph # (Auto) 1.03 L [place] # (Auto) 0.43 Eos # (Auto) 0.00 Baso # (Auto) 0.01 Reticulocyte # Immature Gran # (Auto) 0.04 Absolute Nucleated RBC 0.04 Nucleated RBC % (auto) 1.2 Neutrophils % (Manual) Lymphocytes % (Manual) Reactive Lymphs % (Man) Monocytes % (Manual) Neutrophils # (Manual) Total Absolute Neuts Lymphocytes # (Manual) Reactive Lymphs # Total Abs Lymphocytes Monocytes # (Manual) Toxic Vacuolation Polychromasia 1+ Echinocytes Peripher Smr Path Cons PT INR APTT PTT Ratio Sodium 129 L Potassium 3.6 Chloride 102 Carbon Dioxide 22 Anion Gap 5 BUN 10 Creatinine 0.88 Est Cr Clr Drug Dosing 84.3 Est GFR ( Amer) 99.5 Est GFR (Non-Af Amer) 85.8 BUN/Creatinine Ratio 11.4 Glucose 98 POC Glucose 102 H Estimat Average Glucose 154 Hemoglobin A1c 7.0 H Lactate Calcium 8.1 L Phosphorus 3.5 Magnesium 1.8 Iron 33 L TIBC 203 L Unsaturated IBC 170 Transferrin % Sat 16 L Total Bilirubin 0.9 AST 94 H ALT 54 H Alkaline Phosphatase 99 Lactate Dehydrogenase Total Protein 6.3 Albumin 2.8 L Globulin 3.5 Albumin/Globulin Ratio 0.8 L Vitamin B12 272 Folate > 22.30 Procalcitonin TSH 5.069 H Free T4 0.96 Urine Color Yellow Urine Appearance Clear Urine pH 6.5 Ur Specific [place] 1.004 Urine Protein Negative Urine Glucose (UA) Negative Urine Ketones Negative Urine Blood Negative Urine Nitrite Negative Urine Bilirubin Negative Urine Urobilinogen Negative Ur Leukocyte Esterase Negative Adenovirus (PCR) Anaplasma Smear Babesia Smear B. pertussis DNA (PCR) B.parapertussis DNA PCR Lyme Disease Screen Lyme Disease IgG Ab Lyme Disease IgM Ab C. pneumoniae DNA (PCR) Coronavirus OC43 (PCR) Coronavirus HKU1 (PCR) Coronavirus 229E (PCR) SARS-CoV-2 (PCR) Coronavirus NL63 (PCR) Human Metapneumovir PCR Influenza Type A (PCR) Influenza Type B (PCR) M. pneumoniae (PCR) Parainfluenza 1 (PCR) Parainfluenza 2 (PCR) Parainfluenza 3 (PCR) Parainfluenza 4 (PCR) RSV (PCR) Entero/Rhino (PCR) Diagnostic Findings Chest X-Ray 10/07/23 14:38 XR chest 1V portable HISTORY: cough, fever COMPARISON: Chest 01/01/2021. FINDINGS: No pneumothorax. No pleural effusions. Low lung volumes with mild elevation the right hemidiaphragm. This remains unchanged. There are few bibasilar linear densities suggestive of subsegmental atelectasis are scarring. This has progressed on the right. The heart remains mildly enlarged. No new focal lung consolidations to suggest a pneumonia. No evidence for pulmonary edema. A right jugular Port-A-Cath terminates at the distal SVC. IMPRESSION: 1. Low lung volumes with bibasilar linear densities. This favors subsegmental atelectasis. 2. Mild cardiomegaly. ACT 112: Negative or not required by law. Electronically signed by: Danilo Garcia M.D. 10/07/2023 4:[address] 10/07/23 18:34 Exam(s): CT CHEST Without Contrast EXAM: CT Chest Without Intravenous Contrast CLINICAL HISTORY: Rule out infection, pneumonia, cavitary pathology. TECHNIQUE: Axial computed tomography images of the chest without intravenous contrast. CTDI is 17.77 mGy and DLP is 658.57 mGy-cm. Automated exposure control was utilized for the study. A dose lowering technique was utilized adhering to the principles of ALARA. COMPARISON: Chest radiograph 10/07/2023 FINDINGS: Lungs: There is mild atelectasis without consolidation. No mass. Pleural space: Unremarkable. No pneumothorax. No significant effusion. Heart: Unremarkable. No cardiomegaly. No significant pericardial effusion. No significant coronary artery calcifications. Bones/joints: There are degenerative changes of the spine. No acute fracture. No dislocation. Soft tissues: Unremarkable. Vasculature: Mild atherosclerosis. No thoracic aortic aneurysm. Lymph nodes: Unremarkable. No enlarged lymph nodes. Upper abdomen: There is elevation of the right hemidiaphragm. IMPRESSION: There is mild atelectasis without consolidation. No cavitary lesion. Electronically signed by: Yessenia Lea MD 10/07/23 19:44 PM Liver Ultrasound 10/07/23 18:56 ABDOMINAL ULTRASOUND, RIGHT UPPER QUADRANT HISTORY: Acutely elevated LFTs transaminitis. COMPARISON: CT abdomen and pelvis 11/28/2011 FINDINGS: Pancreas: The pancreas demonstrates a normal echotexture. Liver: Heterogeneous measuring 18 cm in length. Increased parenchymal echogenicity with poor through transmission. There is ill-defined echogenic focus within the lateral left hepatic lobe measuring 1.1 cm without color flow. Patent portal vein. Gallbladder: Cholelithiasis. The bladder wall is upper limits of normal 3 mm. No pericholecystic fluid. Negative sonographic Walters's sign. CBD: 0.5 cm. Right kidney: 2.4 cm cyst of the interpolar right kidney. No hydronephrosis. IMPRESSION: 1. Cholelithiasis with borderline gallbladder wall thickening. No pericholecystic fluid identified and the sonographic Walters sign was reported as negative. 2. No biliary ductal dilation. 3. Indeterminate 1.1 cm echogenic focus within the left lobe of the liver, possibly a hepatic hemangioma. ACT 112: Negative or not required by law. Electronically signed by: Selvin Olguin M.D. 10/08/2023 7:41 AM Medications Administered Home Medications Medication Instructions Recorded Confirmed Last Taken atorvastatin 80 mg tablet (Lipitor) 80 mg PO HS 01/01/21 10/07/23 10/06/23 levothyroxine 88 mcg tablet 88 mcg PO QAM 01/01/21 10/07/23 10/07/23 (Synthroid) loratadine 10 mg tablet (Claritin) 10 mg PO QAM 01/01/21 10/07/23 10/07/23 apixaban 5 mg tablet (Eliquis) 5 mg PO BID 06/20/22 10/07/2324 ipratropium bromide 21 mcg (0.03 2 spray intranasal BID 06/20/22 10/07/23 10/07/23 %) nasal spray metoprolol succinate 25 mg 25 mg PO QAM 06/20/22 10/07/23 10/07/23 tablet,extended release 24 hr kdfdzrivyfll-liabwehs-kplrfo tablet 1 tab PO QAM 06/20/22 10/07/23 10/07/23 omega-3 fatty acids 1,000 mg PO TID 06/20/22 10/07/23 10/07/23 omeprazole magnesium 20 mg 20 mg PO QAM 06/20/22 10/07/23 10/07/23 tablet,delayed release (Prilosec OTC) psyllium 1 packet PO BID 06/20/22 10/07/23 10/07/23 acetaminophen 500 mg tablet 500 mg PO Q6H PRN PAIN OR FEVER 10/07/23 10/07/23 10/07/23 lisinopril 2.5 mg tablet 2.5 mg PO QPM 10/07/23 10/07/23 10/06/23 melatonin 3 mg tablet 3 mg PO HS PRN Insomnia 10/07/23 10/07/23 10/07/23 metformin 500 mg tablet,extended 1,000 mg PO QPM 10/07/23 10/07/23 10/06/23 release 24 hr Active Medications Generic Name Dose Route Start Last Admin Trade Name Freq PRN Reason Stop Dose Admin Acetaminophen 650 mg 10/07/23 18:47 10/07/23 22:40 Acetaminophen 325 Mg Tab PO 11/06/23 18:46 650 mg Q8H PRN Administration Pain or Fever Apixaban 5 mg 10/07/23 21:00 10/08/23 10:08 Apixaban 5 Mg Tablet PO 11/06/23 20:59 5 mg BID JAMIL Administration Atorvastatin Calcium 80 mg 10/07/23 21:00 10/07/23 22:40 Atorvastatin 40 Mg Tab PO 11/06/23 20:59 80 mg HS JAMIL Administration Cyanocobalamin 500 mcg 10/08/23 09:00 10/08/23 10:32 Cyanocobalamin (B-12) 500 Mcg Tablet PO 11/07/23 08:59 500 mcg QAM JAMIL Administration Fish Oil 1 gm 10/07/23 21:00 10/08/23 10:08 [place]-3 (Purified Fish Oil) 1 Gm Cap PO 11/06/23 20:59 1 gm TID JAMIL Administration Cefepime HCl 2,000 mg/ Syringe 20 mls @ 5 mls/min 10/07/23 19:00 10/08/23 03:36 IV 10/09/23 18:59 5 mls/min Q8H JAMIL Administration Protocol Vancomycin HCl 1,250 mg/ 275 mls @ 200 mls/hr 10/08/23 06:00 10/08/23 07:19 Sodium Chloride IV 10/09/23 23:59 200 mls/hr Q12H JAMIL Administration Insulin Aspart 0 units 10/07/23 21:00 10/08/23 10:06 Insulin Aspart Per Unit Charge SC 11/06/23 20:59 Not Given ACHS JAMIL Insulin Glargine 5 units 10/07/23 21:00 10/08/23 10:10 Lantus Per Unit Charge SQ 11/06/23 20:59 Not Given BID JAMIL Ipratropium [place] 2 sprays 10/07/23 21:00 10/08/23 10:09 Ipratropium [place] Nasal [place] 0.06% 15ml CHEPE 11/06/23 20:59 2 sprays BID JAMIL Administration Levothyroxine Sodium 88 mcg 10/08/23 06:30 10/08/23 07:46 Levothyroxine Sodium 88 Mcg Tablet PO 11/07/23 06:29 88 mcg DAILYBB JAMIL Administration Lisinopril 2.5 mg 10/07/23 21:00 10/07/23 22:41 Lisinopril 2.5 Mg Tab PO 11/06/23 20:59 2.5 mg QPM JAMIL Administration Loratadine 10 mg 10/08/23 09:00 10/08/23 10:09 Loratadine 10 Mg Tab PO 11/07/23 08:59 10 mg QAM JAMIL Administration Melatonin 3 mg 10/07/23 20:44 10/07/23 22:42 Melatonin 3 Mg Tab PO 11/06/23 20:43 3 mg HS PRN Administration Insomnia Metoprolol Succinate 25 mg 10/08/23 09:00 10/08/23 10:09 Metoprolol Succ 25mg Ext Rel Tab PO 11/07/23 08:59 25 mg QAM JAMIL Administration Multivitamins/Minerals 1 tab 10/08/23 09:00 10/08/23 10:09 Cerovite Adv Formula Tab PO 11/07/23 08:59 1 tab QAM JAMIL Administration Pantoprazole Sodium 40 mg 10/08/23 09:00 10/08/23 10:09 Pantoprazole 40 Mg Tab PO 11/07/23 08:59 40 mg QAM JAMIL Administration Psyllium Hydrophilic Mucilloid 1 gm 10/07/23 21:00 10/07/23 22:27 Psyllium Or Guar Gum Fiber 4gm Packet PO 11/06/23 20:59 Not Given BID JAMIL Tamsulosin HCl 0.4 mg 10/08/23 09:00 10/08/23 10:10 Tamsulosin Hcl 0.4 Mg Cap PO 11/07/23 08:59 0.4 mg QAM JAMIL Administration
[2023-10-08 13:38] LABS: Hematocrit (blood only) 24.5 % (42.0-52.0); Hemoglobin 8.5 g/dl (14.0-18.0); Mean Corpuscular Hemoglobin 28.7 pg (25.0-34.0); Mean Corpuscular Hgb Conc 34.7 g/dL (32.0-36.0); Mean Corpuscular Volume 82.8 fL (80.0-100.0); Nucleated RBC # (auto) 0.04 K/uL (0.00-0.12); Nucleated RBC % (auto) 1.2 %; Platelet Count 14 K/uL (130-400); RDW Coefficient of Variation 14.7 % (11.5-14.5); RDW Standard Deviation 43.9 fL (36.4-46.3); Red Blood Count 2.96 M/uL (4.70-6.10); White Blood Count 3.45 K/ul (4.8-10.8)
--- NOTE | 2023-10-08 15:43 | Hospitalist Progress Note ---
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 Appetite and fluid in take at his baseline at presentation. History of Lyme disease in February 2022 per family, patient was treated. ? fever 2/2 SEs of keytruda, but fever has been more intense (per patient) farther away from the last keytruda dose (September 14). Admitting tickborne serology: Lyme IgG positive, Babesia and Anaplasma smear negative -follow DNA PCR At presentation: WBC 4.13, lactate WNL, procalcitonin negative, CXR with no acute finding. CT chest with no consolidation or cavitary lesions. Respiratory BioFire negative. Admitting echo without concerns of vegetation. Outpatient blood culture drawn on 10/01 with no growth to date, follow Blood culture sent 10/06, follow. ID evaluated, sending parvovirus and EBV serologies. Recommend adding doxycycline, azithromycin, atovaquone. Agree with continuing vancomycin and cefepime for now. Recommends hematology consultation. Empiric antibiotic with cefepime and vancomycin started 10/06; continue until further ID recs. Pancytopenia: All 3 cell lines has been decreasing, Per OP chart review --> hemoglobin around 9-10 recently, platelets in 40s to 70s, and WBC in 3.5-5 K. Patient denies any blood in the stool or hematemesis or hemoptysis. At presentation - MCV WNL, reticulocyte count WNL, bilirubin WNL. Get FOBT -uncollected, haptoglobin - pending, PBS -nonspecific pancytopenia. TSH minimally elevated (fT4 wnl), patient on levothyroxine at home. Iron profile suggestive of iron deficiency, B12 level low normal, folate normal. --> Iron transfusion 10/07, started B12 supplement 10/07. Plt dropping - Hematology consultation to rule out primary bone marrow issue. Hematology updated, will await recs. Transfuse Prbc for Hb < 8 or symptomatic anemia transfuse platelets for Plt < 10K, or bleeding. Transaminitis: Admitting AST 102, ALT 62, ALP 116, bilirubin WNL. Patient with no abdominal pain. 10/06/2023 LFTAST 146, ALT 81, ALP 141, bilirubin 1.1. LFT trending down, trend daily and monitor. Likely secondary to Keytruda. CMP in AM. US liver w/ left lobe hepatic hemangioma - monitor as OP w/ pcp office. Cholelithiasis noted, no acute issues noted. Mild hyponatremia: Patient has history of chronic hyponatremia with sodium level ranging from 1 27-1 36 as an outpatient. Patient seems to have okay appetite but drinks a lot of water. Limit fluid intake to 2 L/day, increase protein content in diet, monitor labs in a.m. Consider nephrology if with worsening. s/p gentle ivf w/ ns x 1 bag. Na improving. continue to monitor. LUTS: History of BPH, patient with difficulty initiating micturition. started tamsulosin 10/06, pt finds relief. Follow-up. 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 Follow-up with oncology on discharge. Other chronic medical conditions: Continue with/resume home meds as and when able. T2DM: On oral meds, sliding scale insulin while in hospital. Hypothyroidism: Continue home Synthroid HTN: Continue home lisinopril and metoprolol Paroxysmal a flutter: Continue home Eliquis - held due to dropping platelets and risk of bleeding. BPH: Not on home medication, started tamsulosin in the hospital to help with symptoms. Hyperlipidemia: Continue home atorvastatin DVT prophylaxis: Patient on Eliquis, will hold eliquis due to dropping platelets DNR/DNI Pt's updated on plan of care at AM at bedside exam. Answered all her questions. Followed up again during the day w/ updates - she is aware of the risks of holding eliquis/clot risk but is also aware eliquis needs held due to dropping platelets. Updated new plan of care based on ANNE beasley so far. Admission and Anticipated Discharge Date Admission Date: October 07, 2023 Subjective Patient was seen and examined at bedside. Patient was lying semiupright in bed, on 2 L oxygen via nasal cannula, appears weak and tired. Patient's at bedside. Patient denies any blood in the stool or dark stool. Patient denies any chest pain or headache or dizziness. Patient advised to not get out of the bed without supervision due to risks of fall and bleeding. Patient reports feeling febrile overnight. Reports eating okay and moving bowels okay. Physical Exam Physical Exam: GENERAL: Alert and oriented x3. NAD, on RA. Appears ill/frail/weak. Feels warm. HEENT: No pallor, no icterus. Pupils equal, round and reactive to light. Oral mucosa moist. NECK: No JVD, no neck masses. HEART: S1 and S2 heard. Regular rate and rhythm. No murmur, no gallop. RESPIRATORY SYSTEM: Normal AP diameter. No accessory muscle use. No wheezing, no crackles. ABDOMEN: Soft, bowel sounds present, nontender, no distention. CENTRAL NERVOUS SYSTEM: No facial droop. Speech is clear. Obeys simple commands. Moves extremities. EXTREMITIES: No edema, no erythema seen. Back examination: No CVA angle tenderness, no vertebral line tenderness. Results & Data Results & Data Vital Signs (Past 12 Hours) Vital Signs Temp Pulse Pulse Resp BP BP Pulse Ox 10/08/23 15:00 79 22 98 10/08/23 07:12 85 10/08/23 05:42 87 20 162/67 H 98 10/08/23 05:37 37.4 C 84 18 162/67 H 100 O2 Del Method O2 Flow Rate 10/08/23 15:00 10/08/23 07:12 10/08/23 05:42 Nasal Cannula 2 10/08/23 05:37 Nasal Cannula 2
[2023-10-08] MEDS: IRON SUCROSE 200 MG in 0.9 % SODIUM CHLORIDE 100 ML IV ONE (17:11)
[2023-10-08] MEDS: ATOVAQUONE 750 MG/5 ML UDC PO SCH (17:14)
[2023-10-08] MEDS: AZITHROMYCIN 500 MG in DEXTROSE 5% 250 ML IV SCH (18:59)
[2023-10-08] MEDS ORDERED: Nursing to Pharmacy Communication SCH (20:45)
[2023-10-08] MEDS: DOXYCYCLINE HYCLATE 100 MG CAP PO SCH (20:45)
[2023-10-08 23:07] LABS: Hemoglobin 7.6 g/dl (14.0-18.0); Mean Corpuscular Hemoglobin 27.9 pg (25.0-34.0); Mean Corpuscular Volume 84.6 fL (80.0-100.0); Nucleated RBC # (auto) 0.04 K/uL (0.00-0.12); Nucleated RBC % (auto) 1.2 %; Platelet Count 6 K/uL (130-400); RDW Coefficient of Variation 14.9 % (11.5-14.5); RDW Standard Deviation 45.9 fL (36.4-46.3); Red Blood Count 2.72 M/uL (4.70-6.10)
[2023-10-09] MEDS ORDERED: SODIUM CHLORIDE 0.9% 250 ML IV PRN (01:15)
--- NOTE | 2023-10-09 01:18 | Communication Note ---
Date of Service: October 09, 2023
[2023-10-09] MEDS: VANCOMYCIN LEVEL ONE (03:04)
[2023-10-09] MEDS ORDERED: LORazepam 0.5 MG TAB PO PRN (03:34)
[2023-10-09 03:47] LABS: Hematocrit (blood only) 21.6 % (42.0-52.0); Hemoglobin 7.3 g/dl (14.0-18.0); Mean Corpuscular Hemoglobin 28.5 pg (25.0-34.0); Mean Corpuscular Hgb Conc 33.8 g/dL (32.0-36.0); Mean Corpuscular Volume 84.4 fL (80.0-100.0); Nucleated RBC # (auto) 0.02 K/uL (0.00-0.12); Nucleated RBC % (auto) 0.6 %; Platelet Count 3 K/uL (130-400); RDW Coefficient of Variation 14.8 % (11.5-14.5); RDW Standard Deviation 45.1 fL (36.4-46.3); Red Blood Count 2.56 M/uL (4.70-6.10)
[2023-10-09 04:43] LABS: Albumin Globulin Ratio 0.8 (0.9-2); Albumin Level 2.5 gm/dl (3.4-5.0); BUN Creatinine Ratio 11.8 (10-20); Bilirubin,Total 0.8 mg/dl (0.2-1.0); Calcium 7.3 mg/dl (8.6-10.3); Creatinine Clr Calc Pharmacy 98.1 ml/min; Est GFR (African American) 105.6 ml/min; Est GFR (Non-African American) 91.1 ml/min; Globulin 3.1 gm/dl (2.5-4.0); Magnesium 1.7 mg/dl (1.7-2.4); Potassium 3.7 mmol/L (3.5-5.1); Total Protein 5.6 gm/dl (6.0-8.3)
[2023-10-09 05:01] LABS: Basophils # (auto) 0.02 K/uL (0.00-0.20); Basophils % (auto) 0.6 %; Immature Granulocytes # (auto) 0.02 K/uL (0.01-0.20); Immature Granulocytes % (auto) 0.6 %; Lymphocytes # (auto) 1.08 K/uL (1.20-3.40); Lymphocytes % (auto) 33.8 %; Monocytes % (auto) 12.5 %; Neutrophils # (auto) 1.68 K/uL (1.40-6.50); Neutrophils % (auto) 52.5 %; Polychromasia 1+
[2023-10-09] MEDS: POT PHOSPHATE MONOBASIC W/ SOD TAB PO SCH (09:29)
[2023-10-09] MEDS: PSYLLIUM or GUAR GUM FIBER 4GM PACKET PO SCH ×2 (10:41→10:55)
[2023-10-09 13:18] LABS: Hematocrit (blood only) 24.4 % (42.0-52.0); Hemoglobin 8.3 g/dl (14.0-18.0); Mean Corpuscular Hemoglobin 28.5 pg (25.0-34.0); Mean Corpuscular Volume 83.8 fL (80.0-100.0); Nucleated RBC # (auto) 0.04 K/uL (0.00-0.12); Nucleated RBC % (auto) 1.2 %; Platelet Count 6 K/uL (130-400); RDW Coefficient of Variation 15.1 % (11.5-14.5); RDW Standard Deviation 46.1 fL (36.4-46.3); Red Blood Count 2.91 M/uL (4.70-6.10); White Blood Count 3.47 K/ul (4.8-10.8)
--- NOTE | 2023-10-09 13:52 | Pharmacy Report ---
Pharmacy PK ABX Note - Date of Service October 09, 2023 - Assessment and Plan Assessment 10/08 * Vancomycin/cefepime have been extended through 10/10, ID consulted and added doxycycline, atovaquone, azithromycin pending tickborne studies. SCr has been stable. Blood cultures negative at 24 hours. Random level 11.3 mcg/mL this morning- predicts low end of therapeutic goal, will increase slightly to ensure achievement 10/06 73 year old M receiving IV Vancomycin + Cefepime for empiric treatment of febrile illness possibly due to SEs of Keytruda, but fever has been more intense (per patient) and last dose was September 14. History of Lyme disease in February 2022 per family, patient was treated. Admitting tickborne serology: Lyme IgG positive, Babesia and Anaplasma smear negative -follow DNA PCR WBC 4.13, lactate WNL, procalcitonin negative, CXR with no acute finding. Outpatient blood culture drawn on 10/01 with no growth to date, blood cultures 10/06 pending. ID consult. Plan Vancomycin * Loading dose: 2250 mg IV x 1 * Maintenance dose: 1250 mg IV every 12 hours- predicts 425 mg/L.hr * Change to 1500 mg q12H- predicts 503 mg/L.hr * target AUC/NATASHA of 400-600 mg/L.hr * Level ordered for 10/10 @ 0444 Cefepime 2g IV Q8H Pharmacy will continue to follow and will adjust dose/frequency as necessary. Thank you. Pharmacy has transitioned to AUC monitoring for vancomycin. AUC/NATASHA is the preferred PK/PD target and is associated with decreased risk of nephrotoxicity compared to traditional trough targets.
--- NOTE | 2023-10-09 16:10 | Hospitalist Progress Note ---
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 Appetite and fluid in take at his baseline at presentation. History of Lyme disease in February 2022 per family, patient was treated. ? fever 2/2 SEs of keytruda, but fever has been more intense (per patient) farther away from the last keytruda dose (September 14). Admitting tickborne serology: Lyme IgG positive, Babesia and Anaplasma smear negative -follow DNA PCR At presentation: WBC 4.13, lactate WNL, procalcitonin negative, CXR with no acute finding. CT chest with no consolidation or cavitary lesions. Respiratory BioFire negative. Admitting echo without concerns of vegetation. Outpatient blood culture drawn on 10/01 with no growth to date, follow Blood culture sent 10/06, follow. ID evaluated, sent multiple tests, recommend adding doxycycline, azithromycin, atovaquone. Agree with continuing vancomycin and cefepime for now. Will need follow-up with ID again Empiric antibiotic with cefepime and vancomycin started 10/06; continue until further ID recs. Patient reports feeling better with regards to fever. Pancytopenia: All 3 cell lines has been decreasing, Per OP chart review --> hemoglobin around 9-10 recently, platelets in 40s to 70s, and WBC in 3.5-5 K. Patient denies any blood in the stool or hematemesis or hemoptysis. At presentation - MCV WNL, reticulocyte count WNL, bilirubin WNL. Get FOBT -uncollected, haptoglobin - pending, PBS -nonspecific pancytopenia. TSH minimally elevated (fT4 wnl), patient on levothyroxine at home. Iron profile suggestive of iron deficiency, B12 level low normal, folate normal. --> Iron transfusion 10/07, started B12 supplement 10/07. Plt dropping - Hematology consultation to rule out primary bone marrow issue. Transfuse Prbc for Hb < 8 or symptomatic anemia transfuse platelets for Plt < 10K, or bleeding. Status post 3 units platelets transfusion & 1 unit PRBC. Platelets still 6000. Discussed with hematology, will transfuse 2 more unit of platelets, plan for bone marrow biopsy on Thursday. Transaminitis: Admitting AST 102, ALT 62, ALP 116, bilirubin WNL. Patient with no abdominal pain. 10/06/2023 LFTAST 146, ALT 81, ALP 141, bilirubin 1.1. LFT trending down, trend daily and monitor. Likely secondary to Keytruda. CMP in AM. US liver w/ left lobe hepatic hemangioma - monitor as OP w/ pcp office. Cholelithiasis noted, no acute issues noted. Mild hyponatremia: Patient has history of chronic hyponatremia with sodium level ranging from 1 27-1 36 as an outpatient. Patient seems to have okay appetite b ut drinks a lot of water. Limit fluid intake to 2 L/day, increase protein content in diet, monitor labs in a.m. Consider nephrology if with worsening. Na 127 today. continue to monitor. LUTS: History of BPH, patient with difficulty initiating micturition. started tamsulosin 10/06, pt finds relief. Follow-up. 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 Follow-up with oncology on discharge. Other chronic medical conditions: Continue with/resume home meds as and when able. T2DM: On oral meds, sliding scale insulin while in hospital. Hypothyroidism: Continue home Synthroid HTN: Continue home lisinopril and metoprolol Paroxysmal a flutter: Continue home Eliquis - held due to dropping platelets and risk of bleeding. BPH: Not on home medication, started tamsulosin in the hospital to help with symptoms. Hyperlipidemia: Continue home atorvastatin DVT prophylaxis: On hold - eliquis, due to dropping platelets DNR/DNI Pt's and daughter updated at bedside. Admission and Anticipated Discharge Date Admission Date: October 07, 2023 Subjective Patient was seen and examined at bedside. Patient was lying semiupright in bed, on room air, looks fresh and more alert today. Patient's at bedside. Dtr joined in during the exam. Patient denies any blood in the stool or dark stool. Patient denies any chest pain or headache or dizziness. Patient advised to not get out of the bed without supervision due to risks of fall and bleeding. Patient reports fever getting better and strength getting better. Physical Exam Physical Exam: GENERAL: Alert and oriented x3. NAD, on RA. Does not appear tired or weak today. HEENT: No pallor, no icterus. Pupils equal, round and reactive to light. Oral mucosa moist. NECK: No JVD, no neck masses. HEART: S1 and S2 heard. Regular rate and rhythm. No murmur, no gallop. RESPIRATORY SYSTEM: Normal AP diameter. No accessory muscle use. No wheezing, no crackles. ABDOMEN: Soft, bowel sounds present, nontender, no distention. CENTRAL NERVOUS SYSTEM: No facial droop. Speech is clear. Obeys simple commands. Moves extremities. EXTREMITIES: No edema, no erythema seen. Back examination: No CVA angle tenderness, no vertebral line tenderness. Results & Data Results & Data Vital Signs (Past 12 Hours) Vital Signs Temp Pulse Pulse Resp BP BP Pulse Ox 10/09/23 15:45 36.9 C 75 18 129/77 92 10/09/23 15:06 37.1 C 78 16 107/60 96 10/09/23 14:37 75 111/87 10/09/23 14:22 36.9 C 77 16 110/60 96 10/09/23 14:06 37.7 C H 71 16 132/70 96 10/09/23 13:43 37.7 C H 81 16 108/73 10/09/23 12:35 72 10/09/23 12:30 37.3 C 82 16 125/85 96 10/09/23 11:38 78 10/09/23 11:11 37.2 C 79 18 114/65 93 10/09/23 11:08 75 10/09/23 10:53 36.8 C 76 16 115/62 94 10/09/23 10:33 37.3 C 76 16 120/66 94 10/09/23 10:07 80 16 94 10/09/23 08:56 36.8 C 78 16 124/69 92 10/09/23 08:23 37.9 C H 77 16 118/63 94 10/09/23 07:38 78 10/09/23 07:17 37.2 C 76 18 135/67 95 10/09/23 06:19 36.8 C 72 20 110/86 97 10/09/23 05:19 37.2 C 75 20 130/67 93 10/09/23 04:49 37.2 C 78 18 132/69 92 04/19/24 04:34 37.2 C 78 23 120/70 94 10/09/23 04:32 37.2 C 80 22 128/69 95 10/09/23 04:26 37 C 79 22 133/70 96 10/09/23 04:14 37.3 C 78 23 125/63 94 O2 Del Method O2 Flow Rate 10/09/23 15:45 Room Air 10/09/23 15:06 10/09/23 14:37 10/09/23 14:22 10/09/23 14:06 10/09/23 13:43 10/09/23 12:35 10/09/23 12:30 10/09/23 11:38 10/09/23 11:11 Room Air 10/09/23 11:08 10/09/23 10:53 10/09/23 10:33 10/09/23 10:07 10/09/23 08:56 10/09/23 08:23 10/09/23 07:38 10/09/23 07:17 Nasal Cannula 2 10/09/23 06:19 10/09/23 05:19 10/09/23 04:49 10/09/23 04:34 10/09/23 04:32 10/09/23 04:26 10/09/23 04:14
[2023-10-09] MEDS: VANCOMYCIN HCL 1,500 MG in SODIUM CHLORIDE 0.9% 500 ML IV SCH (17:27)
--- NOTE | 2023-10-09 20:54 | Communication Note ---
Date of Service: October 09, 2023
[2023-10-09] MEDS: ACETAMINOPHEN 325 MG TAB PO STA (21:27)
[2023-10-09 21:52] LABS: Hematocrit (blood only) 24.4 % (42.0-52.0); Hemoglobin 8.3 g/dl (14.0-18.0); Mean Corpuscular Hemoglobin 28.8 pg (25.0-34.0); Mean Corpuscular Volume 84.7 fL (80.0-100.0); Nucleated RBC # (auto) 0.04 K/uL (0.00-0.12); Nucleated RBC % (auto) 1.1 %; Platelet Count 13 K/uL (130-400); RDW Coefficient of Variation 14.8 % (11.5-14.5); RDW Standard Deviation 45.7 fL (36.4-46.3); Red Blood Count 2.88 M/uL (4.70-6.10); White Blood Count 3.59 K/ul (4.8-10.8)
[2023-10-09 21:59] LABS: BUN Creatinine Ratio 12.5 (10-20); Calcium 7.8 mg/dl (8.6-10.3); Creatinine Clr Calc Pharmacy 93.2 ml/min; Est GFR (African American) 103.4 ml/min; Est GFR (Non-African American) 89.2 ml/min; Potassium 3.9 mmol/L (3.5-5.1)
[2023-10-09 23:13] LABS: Basophils # (auto) 0.01 K/uL (0.00-0.20); Basophils % (auto) 0.3 %; Immature Granulocytes # (auto) 0.05 K/uL (0.01-0.20); Immature Granulocytes % (auto) 1.4 %; Lymphocytes # (auto) 1.26 K/uL (1.20-3.40); Lymphocytes % (auto) 35.1 %; Monocytes # (auto) 0.39 K/uL (0.11-0.59); Monocytes % (auto) 10.9 %; Neutrophils # (auto) 1.88 K/uL (1.40-6.50); Neutrophils % (auto) 52.3 %
[2023-10-09 23:37] LABS: Appearance Urine Clear (Clear); Bilirubin Urine Negative (Negative); Blood Urine Negative (Negative); Color Urine Yellow; Glucose Urine UA Negative (Negative); Ketones Urine Negative (Negative); Leukocyte Esterase Urine Negative (Negative); Nitrite Urine Negative (Negative); Protein Urine Negative (Negative); Urobilinogen Urine Negative (Negative)
[2023-10-09] MEDS: SODIUM CHLORIDE 0.9% 500 ML IV ONE (23:46)
[2023-10-10 06:30] LABS: Hematocrit (blood only) 25.5 % (42.0-52.0); Hemoglobin 8.7 g/dl (14.0-18.0); Mean Corpuscular Hemoglobin 28.5 pg (25.0-34.0); Mean Corpuscular Hgb Conc 34.1 g/dL (32.0-36.0); Mean Corpuscular Volume 83.6 fL (80.0-100.0); Nucleated RBC # (auto) 0.05 K/uL (0.00-0.12); Nucleated RBC % (auto) 1.3 %; Platelet Count 4 K/uL (130-400); RDW Coefficient of Variation 14.8 % (11.5-14.5); RDW Standard Deviation 44.8 fL (36.4-46.3); Red Blood Count 3.05 M/uL (4.70-6.10); White Blood Count 3.71 K/ul (4.8-10.8)
[2023-10-10 06:31] LABS: Albumin Globulin Ratio 0.8 (0.9-2); Albumin Level 2.8 gm/dl (3.4-5.0); BUN Creatinine Ratio 12.2 (10-20); Bilirubin,Total 1.1 mg/dl (0.2-1.0); Calcium 8.1 mg/dl (8.6-10.3); Creatinine Clr Calc Pharmacy 100.9 ml/min; Est GFR (African American) 106.8 ml/min; Est GFR (Non-African American) 92.2 ml/min; Globulin 3.4 gm/dl (2.5-4.0); Potassium 3.7 mmol/L (3.5-5.1); Total Protein 6.2 gm/dl (6.0-8.3)
--- NOTE | 2023-10-10 07:21 | XRay Report ---
SINGLE VIEW CHEST CLINICAL HISTORY: Hyponatremia FINDINGS: An AP, portable, upright chest radiograph is compared to chest x-ray and chest CT dated 09/20. A right internal jugular central venous infusion port is unchanged in position. The heart is enlarged noting atherosclerotic calcification of the thoracic aorta. The pulmonary vasculature is non congested. Chronic interstitial thickening and elevation of the right hemidiaphragm is similar to pre vious. Trace pleural effusions are suspected with bibasilar scarring/atelectasis. No pneumothorax is seen. The skeletal structures are osteopenic. The bony thorax is grossly intact. IMPRESSION: 1. Cardiomegaly without radiographic evidence of congestive failure. 2. Suspect trace pleural effusions. ACT 112: Negative or not required by law. Electronically signed by: Jamar Ceron M.D. 10/10/2023 7:20 AM
[2023-10-10 07:25] LABS: Influenza A virus by PCR Negative (Neg); Influenza B virus by PCR Negative (Neg); RSV by PCR Negative (Neg); SARS CoV2 RNA(COVID-19) Ceph NEGATIVE (Negative)
[2023-10-10] MEDS: POTASSIUM CHLORIDE CRTAB 20 MEQ TABCR PO STA (09:12)
[2023-10-10] MEDS: ADVANCED PROBIOTIC 625 MG CAPSULE PO SCH (10:43)
--- NOTE | 2023-10-10 12:22 | Oncology Consultation ---
Date of Consultation October 10, 2023 Assessment & Plan (1) Pancytopenia: Multifactorial could be related to use of Keytruda in the adjuvant setting for treatment of melanoma or could be an underlying bone marrow dysfunction. At this point I would recommend comprehensive workup including a peripheral smear review, vitamin B12, folic acid, iron indicis, if needed a bone marrow biopsy. I would establish transfusion parameters. Transfuse packed red blood cells if the hemoglobin is less than 7 g/dL Transfuse platelets if the platelet count is less than 10,000/mcL Bone marrow biopsy to be performed on Thursday explained to the patient that bone marrow biopsies are not performed here over the weekend. If he continues to be needed extensive transfusion then he will be transferred over to a facility such as [facility] especially if he has underlying bone marrow failure. If he is no longer febrile then can consider a trial of steroids with dexamethasone 40 mg IV or p.o. daily along with IVIG for consideration of an immune related process especially with the fact that he has had recent exposure to Keytruda. For febrile episodes continue broad-spectrum antibiotics since he is neutropenic. Only stop antibiotics at neutrophil count greater than 1500/mcL and if he has been afebrile for more than 48 hours with negative cultures. 6 (2) Malignant melanoma: Outpatient follow-up and management per our [facility] colleagues. Patient refuses to get further treatment for malignant melanoma. Will keep this discussion between the patient and his primary oncologist. (3) History of immunotherapy: At this point he has been off the Keytruda for more than 3 weeks. Plan Medical oncology will continue to follow the patient make appropriate recommendations. Thank you for this interesting hematological consult. History of Present Illness Reason for Consultation: Malignant melanoma Exposure to immunotherapy, Keytruda Pancytopenia Attending Physician: Simon Hodge MD History of Present Illness The patient is a very pleasant 73-year-old male who is a current patient of Dr. Epstein at [facility]. He is being treated for malignant melanoma and is receiving Keytruda adjuvantly. Reportedly his last dose of adjuvant Keytruda was at middle of August. Since then the patient has not done well. He has been extremely tired and fatigued. He has had constant fevers. His appetite has been poor, he has been losing weight. He has been nauseated. He was admitted to [facility] with recurrent fevers, was found to be severely pancytopenic with a platelet count less than 10,000/mcL, hemoglobin less than 10 and WBC c ount less than 4000/mcL. Cultures have been drawn. He is on broad-spectrum antibiotics and continues to have fevers. Medical oncology has been consulted to assist in management of this patient with malignant melanoma, exposure to immunotherapy current pancytopenia and septic thrombocytopenia. Allergies Allergy/AdvReac Type Severity Reaction Status Date / Time Sulfa (Sulfonamide Allergy Unknown Unknown Unverified 10/07/23 17:12 Antibiotics) Home Medications Medication Instructions Recorded Confirmed Type atorvastatin 80 mg tablet (Lipitor) 80 mg PO HS 01/01/21 10/07/23 History levothyroxine 88 mcg tablet 88 mcg PO QAM 01/01/21 10/07/23 History (Synthroid) loratadine 10 mg tablet (Claritin) 10 mg PO QAM 01/01/21 10/07/23 History apixaban 5 mg tablet (Eliquis) 5 mg PO BID 06/20/22 10/07/23 History ipratropium bromide 21 mcg (0.03 2 spray intranasal BID 06/20/22 10/07/23 History %) nasal spray metoprolol succinate 25 mg 25 mg PO QAM 06/20/22 10/07/23 History tablet,extended release 24 hr [id number] tablet 1 tab PO QAM 06/20/22 10/07/23 History omega-3 fatty acids 1,000 mg PO TID 06/20/22 10/07/23 History omeprazole magnesium 20 mg 20 mg PO QAM 06/20/22 10/07/23 History tablet,delayed release (Prilosec OTC) psyllium 1 packet PO BID 06/20/22 10/07/23 History acetaminophen 500 mg tablet 500 mg PO Q6H PRN PAIN OR FEVER 10/07/23 10/07/23 History lisinopril 2.5 mg tablet 2.5 mg PO QPM 10/07/23 10/07/23 History melatonin 3 mg tablet 3 mg PO HS PRN Insomnia 10/07/23 10/07/23 History metformin 500 mg tablet,extended 1,000 mg PO QPM 10/07/23 10/07/23 History release 24 hr Patient History Medical History (Updated 10/10/23 @ 12:44 by Davi Kennedy MD) History of Lyme disease SUMMER 2021 Acid reflux Atrial flutter DX DECEMBER 2020 Hypothyroid Hyperlipidemia Hypertension Surgical History History of left cataract extraction History of lumbar spinal fusion History of endoscopy History of colonoscopy Family History Father Family history of diabetes mellitus Mother Family history of diabetes mellitus Other Family history of colon cancer in mother Social History Smoking Status: Never smoker Second Hand Exposure: No; Do You Dip or Chew Tobacco: No; Hx Alcohol Use: Yes Alcohol type: beer Hx Substance Use: No Preferred Language: Maltese Communication Ability: Effective Entry Specialists Required: No Beliefs That Will Affect Care: None Current Living Situation: Spouse Current Living Situation Comment: [facility] Feels Safe at Home: Yes Assistive Devices: None Review of Systems Review of Systems: All systems reviewed & are unremarkable except as noted in HPI & below Constitutional: as per Subjective / HPI Eyes: as per Subjective / HPI Ear, Nose, Mouth, Throat: as per Subjective / HPI Cardiovascular: as per Subjective / HPI Gastrointestinal: as per Subjective / HPI Genitourinary: + as per Subjective / HPI Integumentary: as per Subjective / HPI Neurologic: as per Subjective / HPI Psychiatric: as per Subjective / HPI Results & Data Vital Signs (Past 12 Hours) Vital Signs Temp Pulse Pulse Resp BP BP Pulse Ox 10/10/23 11:25 36.9 C 72 17 115/67 94 10/10/23 09:21 80 10/10/23 09:19 36.6 C 78 16 133/75 98 10/10/23 08:55 36.6 C 80 16 118/67 97 10/10/23 07:25 37.1 C 72 18 124/66 94 10/10/23 07:11 66 10/10/23 03:35 36.8 C 71 16 116/69 94 O2 Del Method 10/10/23 11:25 Room Air 10/10/23 09:21 10/10/23 09:19 10/10/23 08:55 10/10/23 07:25 Room Air 10/10/23 07:11 10/10/23 03:35 Room Air
--- NOTE | 2023-10-10 16:17 | Hospitalist Progress Note ---
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 Appetite and fluid in take at his baseline at presentation. History of Lyme disease in February 2022 per family, patient was treated. ? fever 2/2 SEs of keytruda, but fever has been more intense (per patient) farther away from the last keytruda dose (September 14). Admitting tickborne serology: Lyme IgG positive, Babesia and Anaplasma smear negative -follow DNA PCR At presentation: WBC 4.13, lactate WNL, procalcitonin negative, CXR with no acute finding. CT chest with no consolidation or cavitary lesions. Respiratory BioFire negative. Admitting echo without concerns of vegetation. Outpatient blood culture drawn on 10/01 with no growth to date, follow Blood culture sent 10/06, follow. No growth so far. ID evaluated 10/07, sent multiple tests, recommend adding doxycycline, azithromycin, atovaquone. Agree with continuing vancomycin and cefepime for now. Will need follow-up with ID again Empiric antibiotic with cefepime and vancomycin started 10/06; continue until further ID recs. Patient reports feeling better, fever still intermittent. Pancytopenia: All 3 cell lines has been decreasing, Per OP chart review --> hemoglobin around 9-10 recently, platelets in 40s to 70s, and WBC in 3.5-5 K. Patient denies any blood in the stool or hematemesis or hemoptysis. At presentation - MCV WNL, reticulocyte count WNL, bilirubin WNL. Get FOBT -uncollected, haptoglobin - pending, PBS -nonspecific pancytopenia. TSH minimally elevated (fT4 wnl), patient on levothyroxine at home. Iron profile suggestive of iron deficiency, B12 level low normal, folate normal. --> Iron transfusion 10/07, started B12 supplement 10/07. Plt dropping - Hematology consultation to rule out primary bone marrow issue. Transfuse Prbc for Hb < 7 or symptomatic anemia transfuse platelets for Plt < 10K, or bleeding. Hemoglobin has been stable, platelets at 4K. Transfuse 2 more unit. Repeat CBC at 5 PM. Hematology on board, appreciate recommendation Transaminitis: Admitting AST 102, ALT 62, ALP 116, bilirubin WNL. Patient with no abdominal pain. 10/06/2023 LFTAST 146, ALT 81, ALP 141, bilirubin 1.1. LFT trending down, trend daily and monitor. Likely secondary to Keytruda. CMP in AM. US liver w/ left lobe hepatic hemangioma - monitor as OP w/ pcp office. Cholelithiasis noted, no acute issues noted. Mild hyponatremia: Patient has history of chronic hyponatremia with sodium level ranging from 1 27-1 36 as an outpatient. Patient seems to have okay appetite but drinks a lot of water. Limit fluid intake to 2 L/day, increase protein content in diet, monitor labs in a.m. Consider nephrology if with worsening. Na 132 today. continue to monitor. LUTS: History of BPH, patient with difficulty initiating micturition. started tamsulosin 10/06, pt finds relief. Follow-up. 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 Follow-up with oncology on discharge. Other chronic medical conditions: Continue with/resume home meds as and when able. T2DM: On oral meds, sliding scale insulin while in hospital. Hypothyroidism: Continue home Synthroid HTN: Continue home lisinopril and metoprolol Paroxysmal a flutter: Continue home Eliquis - held due to dropping platelets and risk of bleeding. BPH: Not on home medication, started tamsulosin in the hospital to help with symptoms. Hyperlipidemia: Continue home atorvastatin DVT prophylaxis: On hold - eliquis, due to dropping platelets DNR/DNI Pt's and daughter updated at bedside. Admission and Anticipated Discharge Date Admission Date: October 07, 2023 Subjective Patient was seen and examined at bedside. Patient was lying semiupright in bed, on room air, continues to looks fresh and more alert today. Patient's at bedside. Dtr joined in during the exam. Patient denies any blood in the stool or dark stool. FOBT is negative. Patient denies any chest pain or headache or dizziness. Patient advised to not get out of the bed without supervision due to risks of fall and bleeding. Patient reports fever getting better and strength getting better. Overnight fever episode was noted. Physical Exam Physical Exam: GENERAL: Alert and oriented x3. NAD, on RA. Does not appear tired or weak today. HEENT: No pallor, no icterus. Pupils equal, round and reactive to light. Oral mucosa moist. NECK: No JVD, no neck masses. HEART: S1 and S2 heard. Regular rate and rhythm. No murmur, no gallop. RESPIRATORY SYSTEM: Normal AP diameter. No accessory muscle use. No wheezing, no crackles. ABDOMEN: Soft, bowel sounds present, nontender, no distention. CENTRAL NERVOUS SYSTEM: No facial droop. Speech is clear. Obeys simple commands. Moves extremities. EXTREMITIES: No edema, no erythema seen. Back examination: No CVA angle tenderness, no vertebral line tenderness. Results & Data Results & Data Vital Signs (Past 12 Hours) Vital Signs Temp Pulse Pulse Resp BP BP Pulse Ox 10/10/23 16:04 36.6 C 77 18 133/72 93 10/10/23 15:27 36.7 C 94 H 16 135/76 98 10/10/23 15:06 36.3 C L 72 16 127/70 98 10/10/23 11:25 36.9 C 72 17 115/67 94 10/10/23 09:21 80 10/10/23 09:19 36.6 C 78 16 133/75 98 10/10/23 08:55 36.6 C 80 16 118/67 97 10/10/23 07:25 37.1 C 72 18 124/66 94 10/10/23 07:11 66 O2 Del Method 10/10/23 16:04 Room Air 10/10/23 15:27 10/10/23 15:06 10/10/23 11:25 Room Air 10/10/23 09:21 10/10/23 09:19 10/10/23 08:55 10/10/23 07:25 Room Air 10/10/23 07:11
[2023-10-10 17:52] LABS: Hematocrit (blood only) 25.8 % (42.0-52.0); Hemoglobin 8.7 g/dl (14.0-18.0); Mean Corpuscular Hemoglobin 28.6 pg (25.0-34.0); Mean Corpuscular Hgb Conc 33.7 g/dL (32.0-36.0); Mean Corpuscular Volume 84.9 fL (80.0-100.0); Nucleated RBC # (auto) 0.09 K/uL (0.00-0.12); Nucleated RBC % (auto) 2.3 %; Platelet Count 10 K/uL (130-400); RDW Coefficient of Variation 15.1 % (11.5-14.5); RDW Standard Deviation 45.8 fL (36.4-46.3); Red Blood Count 3.04 M/uL (4.70-6.10); White Blood Count 3.85 K/ul (4.8-10.8)
[2023-10-11] MEDS: VANCOMYCIN LEVEL ONE (05:20)
[2023-10-11 05:58] LABS: Albumin Globulin Ratio 0.8 (0.9-2); Albumin Level 2.7 gm/dl (3.4-5.0); BUN Creatinine Ratio 12.5 (10-20); Calcium 7.9 mg/dl (8.6-10.3); Creatinine Clr Calc Pharmacy 103.7 ml/min; Est GFR (Non-African American) 93.2 ml/min; Globulin 3.2 gm/dl (2.5-4.0); Magnesium 1.8 mg/dl (1.7-2.4); Phosphorus 3.6 mg/dl (2.5-4.9); Potassium 3.8 mmol/L (3.5-5.1); Total Protein 5.9 gm/dl (6.0-8.3)
[2023-10-11 06:00] LABS: Hematocrit (blood only) 23.2 % (42.0-52.0); Hemoglobin 7.8 g/dl (14.0-18.0); Mean Corpuscular Hemoglobin 28.4 pg (25.0-34.0); Mean Corpuscular Hgb Conc 33.6 g/dL (32.0-36.0); Mean Corpuscular Volume 84.4 fL (80.0-100.0); Nucleated RBC # (auto) 0.08 K/uL (0.00-0.12); Nucleated RBC % (auto) 2.3 %; Platelet Count 3 K/uL (130-400); RDW Coefficient of Variation 15.1 % (11.5-14.5); Red Blood Count 2.75 M/uL (4.70-6.10); White Blood Count 3.55 K/ul (4.8-10.8)
--- NOTE | 2023-10-11 09:14 | Pharmacy Report ---
Pharmacy PK ABX Note - Date of Service October 11, 2023 - Assessment and Plan Assessment 10/10 * Vancomycin, cefepime and azithromycin all now scheduled through at least 10/12 PM * SCr stable * Afebrile yesterday * Blood cultures remain negative * Random level of 16.8 mcg/mL this AM associated with a therapeutic AUC of 589 10/08 * Vancomycin/cefepime have been extended through 10/10, ID consulted and added doxycycline, atovaquone, azithromycin pending tickborne studies. SCr has been stable. Blood cultures negative at 24 hours. Random level 11.3 mcg/mL this morning- predicts low end of therapeutic goal, will increase slightly to ensure achievement 10/06 73 year old M receiving IV Vancomycin + Cefepime for empiric treatment of febrile illness possibly due to SEs of Keytruda, but fever has been more intense (per patient) and last dose was September 14. History of Lyme disease in February 2022 per family, patient was treated. Admitting tickborne serology: Lyme IgG positive, Babesia and Anaplasma smear negative -follow DNA PCR WBC 4.13, lactate WNL, procalcitonin negative, CXR with no acute finding. Outpatient blood culture drawn on 10/01 with no growth to date, blood cultures 10/06 pending. ID consult. Plan Vancomycin * Continue vancomycin 1500 mg IV every 12 hours * target AUC/NATASHA of 400-600 mg/L.hr * Level ordered for 10/12 @ 0444 Pharmacy will continue to follow and will adjust dose/frequency as necessary. Thank you. Pharmacy has transitioned to AUC monitoring for vancomycin. AUC/NATASHA is the preferred PK/PD target and is associated with decreased risk of nephrotoxicity compared to traditional trough targets.
--- NOTE | 2023-10-11 14:30 | Hospitalist Progress Note ---
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 Appetite and fluid in take at his baseline at presentation. History of Lyme disease in February 2022 per family, patient was treated. ? fever 2/2 SEs of keytruda, but fever has been more intense (per patient) farther away from the last keytruda dose (September 14). Admitting tickborne serology: Lyme IgG positive, Babesia and Anaplasma smear negative -follow DNA PCR At presentation: WBC 4.13, lactate WNL, procalcitonin negative, CXR with no acute finding. CT chest with no consolidation or cavitary lesions. Respiratory BioFire negative. Admitting echo without concerns of vegetation. Outpatient blood culture drawn on 10/01 with no growth. Blood culture sent 10/06, follow. No growth so far. ID evaluated 10/07, sent multiple tests, recommend adding doxycycline, azithromycin, atovaquone. Agree with continuing vancomycin and cefepime for now. Will need follow-up with ID again Empiric antibiotic with cefepime and vancomycin started 10/06; continue until further ID recs. Patient reports feeling better, fever intermittent. Pancytopenia: All 3 cell lines has been decreasing, Per OP chart review --> hemoglobin around 9-10 recently, platelets in 40s to 70s, and WBC in 3.5-5 K. Patient denies any blood in the stool or hematemesis or hemoptysis. At presentation - MCV WNL, reticulocyte count WNL, bilirubin WNL. Get FOBT -uncollected, haptoglobin - pending, PBS -nonspecific pancytopenia. TSH minimally elevated (fT4 wnl), patient on levothyroxine at home. Iron profile suggestive of iron deficiency, B12 level low normal, folate normal. --> Iron transfusion 10/07, started B12 supplement 10/07. Plt dropping - Hematology consultation to rule out primary bone marrow issue. Transfuse Prbc for Hb < 7 or symptomatic anemia transfuse platelets for Plt < 10K, or bleeding. Hemoglobin gradually dropping again, platelets at 3K. Transfuse 2 more unit. Repeat CBC at 3 PM and 10 pm Hematology on board, appreciate recommendation labs in am Transaminitis: Admitting AST 102, ALT 62, ALP 116, bilirubin WNL. Patient with no abdominal pain. 10/06/2023 LFTAST 146, ALT 81, ALP 141, bilirubin 1.1. LFT trending down, trend daily and monitor. Likely secondary to Keytruda. CMP in AM. US liver w/ left lobe hepatic hemangioma - monitor as OP w/ pcp office. Cholelithiasis noted, no acute issues noted. Mild hyponatremia: Patient has history of chronic hyponatremia with sodium level ranging from 1 27-1 36 as an outpatient. Patient seems to have okay appetite but drinks a lot of water. Limit fluid intake to 2 L/day, increase protein content in diet, monitor labs in a.m. Consider nephrology if with worsening. Na 131 today. continue to monitor. LUTS: History of BPH, patient with difficulty initiating micturition. started tamsulosin 10/06, pt finds relief. Follow-up. 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 Follow-up with oncology on discharge. Other chronic medical conditions: Continue with/resume home meds as and when able. T2DM: On oral meds, sliding scale insulin while in hospital. Hypothyroidism: Continue home Synthroid HTN: Continue home lisinopril and metoprolol Paroxysmal a flutter: Continue home Eliquis - held due to dropping platelets and risk of bleeding. BPH: Not on home medication, started tamsulosin in the hospital to help with symptoms. Hyperlipidemia: Continue home atorvastatin DVT prophylaxis: On hold - eliquis, due to dropping platelets. scd DNR/DNI Pt's and daughter updated at bedside. Admission and Anticipated Discharge Date Admission Date: October 07, 2023 Subjective Patient was seen and examined at bedside. Patient was lying semiupright in bed, on room air, continues to looks fresh and alert. Patient denies any blood in the stool or dark stool. FOBT is negative. Patient denies any chest pain or headache or dizziness. Patient advised to not get out of the bed without supervision due to risks of fall and bleeding. No febrile event from more than 24 hours by now. Physical Exam Physical Exam: GENERAL: Alert and oriented x3. NAD, on RA. HEENT: No pallor, no icterus. Pupils equal, round and reactive to light. Oral mucosa moist. NECK: No JVD, no neck masses. HEART: S1 and S2 heard. Regular rate and rhythm. No murmur, no gallop. RESPIRATORY SYSTEM: Normal AP diameter. No accessory muscle use. No wheezing, no crackles. ABDOMEN: Soft, bowel sounds present, nontender, no distention. CENTRAL NERVOUS SYSTEM: No facial droop. Speech is clear. Obeys simple commands. Moves extremities. EXTREMITIES: No edema, no erythema seen. Back examination: No CVA angle tenderness, no vertebral line tenderness. Results & Data Results & Data Vital Signs (Past 12 Hours) Vital Signs Temp Pulse Pulse Resp BP BP Pulse Ox 10/11/23 12:17 36.7 C 64 16 127/61 96 10/11/23 11:38 36.5 C 69 16 122/66 96 10/11/23 11:15 36.7 C 68 16 131/74 98 10/11/23 09:49 36.5 C 70 16 120/65 95 10/11/23 07:30 36.6 C 76 17 120/65 96 10/11/23 02:54 36.8 C 77 20 129/73 92 O2 Del Method 10/11/23 12:17 10/11/23 11:38 10/11/23 11:15 10/11/23 09:49 10/11/23 07:30 Room Air 10/11/23 02:54 Room Air
[2023-10-11 15:10] LABS: Hematocrit (blood only) 23.8 % (42.0-52.0); Hemoglobin 7.9 g/dl (14.0-18.0); Mean Corpuscular Hemoglobin 28.2 pg (25.0-34.0); Mean Corpuscular Hgb Conc 33.2 g/dL (32.0-36.0); Nucleated RBC # (auto) 0.11 K/uL (0.00-0.12); Platelet Count 12 K/uL (130-400); RDW Coefficient of Variation 15.1 % (11.5-14.5); RDW Standard Deviation 46.5 fL (36.4-46.3); White Blood Count 3.63 K/ul (4.8-10.8)
[2023-10-11] MEDS ORDERED: IMMUNE GLOBULIN (HUMAN) SOLN IV SCH (15:30)
[2023-10-11] MEDS ORDERED: DEXAMETHASONE SOD INJ 4 MG/ML VIAL IV SCH (15:30)
[2023-10-11] MEDS: Octagam 10% IVIG 10 gram bottle IV SCH (16:54)
[2023-10-11] MEDS: dexAMETHasone 40 MG in DEXTROSE 5% 25 ML IV SCH (16:54)
[2023-10-11] MEDS ORDERED: Octagam 10% IVIG 20 gram bottle IV SCH (17:00)
--- NOTE | 2023-10-11 17:01 | Discharge Summary ---
Date of Service October 11, 2023 Admission HPI Per Admitting Provider 73-year-old male with PMH of T2DM on oral meds, hypothyroidism, HTN, aortic root enlargement, paroxysmal A-flutter on Eliquis, BPH, open-angle glaucoma, malignant melanoma of left cheek diagnosed last January [status post excision with clear margin, nodes clear and PET scan negative per patient's at bedside] on Keytruda every 3 weeks [last dose 14 September, scheduled dose on 10/05 was not given due to patient not feeling well; so far 9 treatments in total] presented to the ED with about 16 days of initially intermittent fever later progressing to more continuous fever. 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 Patient reports dry cough, denies sore throat, reports cough being on and off for a long time. Patient does report acutely shortness of breath with exertion and increased weakness. Patient reports some headache and dizziness. Patient denies any acute changes in his bowel habits, reports good appetite, reports drinking a lot of water for many years, denies any open wound or new skin rashes. Patient reports quitting smoking 1990, occasionally used to drink beer which he has stopped drinking since September 19, denies recreational drug use. DNR/DNI as per my discussion with the patient and his family at bedside. Medications were reviewed in detail with the patient and his family. Plan of care was discussed in detail with the patient and his family at bedside. Patient's Mari and daughter Angelica were present at bedside. Admission Exam Per Admitting Provider GENERAL: Alert and oriented x3. NAD, on RA. Appears ill/frail/weak. Feels warm. HEENT: No pallor, no icterus. Pupils equal, round and reactive to light. Oral mucosa moist. NECK: No JVD, no neck masses. HEART: S1 and S2 heard. Regular rate and rhythm. No murmur, no gallop. RESPIRATORY SYSTEM: Normal AP diameter. No accessory muscle use. No wheezing, no crackles. ABDOMEN: Soft, bowel sounds present, nontender, no distention. CENTRAL NERVOUS SYSTEM: No facial droop. Speech is clear. Obeys simple commands. Moves extremities. EXTREMITIES: No edema, no erythema seen. Back examination: No CVA angle tenderness, no vertebral line tenderness. Principal Diagnosis pancytopenia fever,unknown origin Discharge Exam GENERAL: Alert and oriented x3. NAD, on RA. HEENT: No pallor, no icterus. Pupils equal, round and reactive to light. Oral mucosa moist. NECK: No JVD, no neck masses. HEART: S1 and S2 heard. Regular rate and rhythm. No murmur, no gallop. RESPIRATORY SYSTEM: Normal AP diameter. No accessory muscle use. No wheezing, no crackles. ABDOMEN: Soft, bowel sounds present, nontender, no distention. CENTRAL NERVOUS SYSTEM: No facial droop. Speech is clear. Obeys simple commands. Moves extremities. EXTREMITIES: No edema, no erythema seen. Back examination: No CVA angle tenderness, no vertebral line tenderness. 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 Appetite and fluid intake at his baseline at presentation. History of Lyme disease in February 2022 per family, patient was treated. ? fever 2/2 SEs of keytruda, but fever has been more intense (per patient) farther away from the last keytruda dose (September 14). Admitting tickborne serology: Lyme IgG positive, Babesia and Anaplasma smear negative -follow DNA PCR At presentation: WBC 4.13, lactate WNL, procalcitonin negative, CXR with no acute finding. CT chest with no consolidation or cavitary lesions. Respiratory BioFire ne gative. Admitting echo without concerns of vegetation. Outpatient blood culture drawn on 10/01 with no growth. Blood culture sent 10/06, follow. No growth so far. ID evaluated 10/07, sent multiple tests, recommend adding doxycycline, azithromycin, atovaquone. Agree with continuing vancomycin and cefepime for now. Will need follow-up with ID again Empiric antibiotic with cefepime and vancomycin started 10/06; continue until further ID recs. Patient reports feeling better, fever intermittent. Pancytopenia: All 3 cell lines has been decreasing, Per OP chart review --> hemoglobin around 9-10 recently, platelets in 40s to 70s, and WBC in 3.5-5 K. Patient denies any blood in the stool or hematemesis or hemoptysis. At presentation - MCV WNL, reticulocyte count WNL, bilirubin WNL. Get FOBT -uncollected, haptoglobin - pending, PBS -nonspecific pancytopenia. TSH minimally elevated (fT4 wnl), patient on levothyroxine at home. Iron profile suggestive of iron deficiency, B12 level low normal, folate normal. --> Iron transfusion 10/07, started B12 supplement 10/07. Plt dropping - Hematology consultation to rule out primary bone marrow issue. Transfuse Prbc for Hb < 7 or symptomatic anemia transfuse platelets for Plt < 10K, or bleeding. Hemoglobin gradually dropping again, platelets at 3K. Transfuse 2 more unit. Repeat CBC at 3 PM and 10 pm d/w hematology - transfer recommended due to need for robust blood product support and daily ID eval, iv dexa and ivig in the interim. Transaminitis: Admitting AST 102, ALT 62, ALP 116, bilirubin WNL. Patient with no abdominal pain. 10/06/2023 LFTAST 146, ALT 81, ALP 141, bilirubin 1.1. LFT trending down, trend daily and monitor. Likely secondary to Keytruda. CMP in AM. US liver w/ left lobe hepatic hemangioma - monitor as OP w/ pcp office. Cholelithiasis noted, no acute issues noted. Mild hyponatremia: Patient has history of chronic hyponatremia with sodium level ranging from 1 27-1 36 as an outpatient. Patient seems to have okay appetite but drinks a lot of water. Limit fluid intake to 2 L/day, increase protein c ontent in diet, monitor labs in a.m. Consider nephrology if with worsening. Na 131 today. continue to monitor. LUTS: History of BPH, patient with difficulty initiating micturition. started tamsulosin 10/06, pt finds relief. Follow-up. 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 Follow-up with oncology on discharge. Other chronic medical conditions: Continue with/resume home meds as and when able. T2DM: On oral meds, sliding scale insulin while in hospital. Hypothyroidism: Continue home Synthroid HTN: Continue home lisinopril and metoprolol Paroxysmal a flutter: Continue home Eliquis - held due to dropping platelets and risk of bleeding. BPH: Not on home medication, started tamsulosin in the hospital to help with symptoms. Hyperlipidemia: Continue home atorvastatin DVT prophylaxis: On hold - eliquis, due to dropping platelets. scd DNR/DNI Pt accepted at [facility]. Dr. Watson is accepting physician. paper work completed. Home Health Attestation I certify that this patient is under my care and that I, or a physicians assistant art director working with me, had a face to-face encounter that meets the home health [id number]-[id number] encounter requirements with this patient. The encounter with the patient was in whole, or in part, for the following medical condition, which is the primary reason for home health care (list medical condition): I certify that, based on my findings, the following services are medically necessary home health services: My clinical findings support the need for the above services because: Further, I certify that my clinical findings support that this patient is homebound (i.e. absences from home require considerable and taxing effort and are for medical reasons or taoist services or infrequently or of short duration when for other reasons) because: Certification for Home Health Services: Based on the above findings, I certify that this patient is confined to the home and needs intermittent halfway care, physical therapy and/or speech therapy or continues to need occupational therapy. The patient is under my care, and I have initiated the establishment of the plan of care. This patient will be followed by a physician who will periodically review the plan of care. Total Time Total Time Spent Total Time Spent (In Minutes): 55 Discharge Plan Discharge Items Patient Disposition: Transfer Acute Care Hospital Reason For Visit: PROLONGED FEVER Discharge Diagnosis: Pancytopenia Fever, unknown cause Activity: As commented below Activity Comment: per tertiary care center Non-emergency contact: Primary Care Provider Call non-emergency contact if: you have any medication questions and your symptoms worsen Follow-up/Referrals: Jocelyn Bro DO [Primary Care Provider] - Diet: Low Potassium (2gm) Fluids: 2000ml (8 cups) Addtl Attending Provider Instructions: Your prior to arrival Home medications are continued as it is in the discharge med rec. Your current inpatient medications are copied and pasted here for the sake of comparison. Current Inpatient Medications Acetaminophen (Acetaminophen 325 Mg Tab) 650 mg PO Q8H PRN PRN Reason: Pain or Fever Stop: 11/06/23 18:46 Last Admin: 10/07/23 22:40 Dose: 650 mg Al Hydrox/Mg Hydrox/Simethicone (Aluminum/Magnesium Susp 30 Ml Udc) 15 ml PO Q4H PRN PRN Reason: Dyspepsia Stop: 11/06/23 18:46 Apixaban (Apixaban 5 Mg Tablet) 5 mg PO BID JAMIL Stop: 11/06/23 20:59 Last Admin: 10/08/23 10:08 Dose: 5 mg Atorvastatin Calcium (Atorvastatin 40 Mg Tab) 80 mg PO HS JAMIL Stop: 11/06/23 20:59 Last Admin: 10/10/23 19:43 Dose: 80 mg Atovaquone (Atovaquone 750 Mg/5 Ml Udc) 750 mg PO Q12H JAMIL Stop: 11/07/23 15:29 Last Admin: 10/11/23 10:04 Dose: 750 mg Cyanocobalamin (Cyanocobalamin (B-12) 500 Mcg Tablet) 500 mcg PO QAM JAMIL Stop: 11/07/23 08:59 Last Admin: 10/11/23 10:03 Dose: 500 mcg Doxycycline Hyclate (Doxycycline Hyclate 100 Mg Cap) 100 mg PO BID JAMIL Stop: 10/14/23 20:59 Last Admin: 10/11/23 10:04 Dose: 100 mg Fish Oil (Kalaheo-3 (Purified Fish Oil) 1 Gm Cap) 1 gm PO TID JAMIL Stop: 11/06/23 20:59 Last Admin: 10/11/23 14:41 Dose: 1 gm Cefepime HCl 2,000 mg/ Syringe 20 mls @ 5 mls/min IV Q8H JAMIL; Protocol Stop: 10/14/23 18:59 Last Admin: 10/11/23 10:36 Dose: 5 mls/min Azithromycin 500 mg/ Dextrose 255 mls @ 125 mls/hr IV Q24H [facility] Stop: 10/14/23 15:29 Last Admin: 10/11/23 14:43 Dose: 125 mls/hr Vancomycin HCl 1,500 mg/ (Sodium Chloride) 530 mls @ 200 mls/hr IV Q12H [facility] Stop: 10/13/23 23:59 Last Infusion: 10/11/23 08:49 Dose: Infused Dexamethasone 40 mg/ Dextrose 35 mls @ 70 mls/hr IV Q24H [facility] Stop: 10/12/23 17:00 Immune Globulin (Octagam 10%) 200 mls @ 55.92 mls/hr IV TODAY@1700,1800,1900,2000 JAMIL; Protocol Stop: 10/12/23 21:00 Immune Globulin (Octagam 10%) 100 mls @ 55.92 mls/hr IV TODAY@1600 JAMIL; Protocol Stop: 10/12/23 17:00 Ipratropium [place] (Ipratropium [place] Nasal Aurora 0.06% 15ml) 2 sprays CHEPE BID [facility] Stop: 11/06/23 20:59 Last Admin: 10/11/23 10:05 Dose: Not Given Lactobacillus Acidophilus (Advanced Probiotic 625 Mg Capsule) 1,250 mg PO DAILY [facility] Stop: 11/09/23 09:44 Last Admin: 10/11/23 10:03 Dose: 1,250 mg Levothyroxine Sodium (Levothyroxine Sodium 88 Mcg Tablet) 88 mcg PO DAILYBB [facility] Stop: 11/07/23 06:29 Last Admin: 10/11/23 05:20 Dose: 88 mcg Lisinopril (Lisinopril 2.5 Mg Tab) 2.5 mg PO QPM [facility] Stop: 11/06/23 20:59 Last Admin: 10/10/23 19:51 Dose: 2.5 mg Loratadine (Loratadine 10 Mg Tab) 10 mg PO QAM [facility] Stop: 11/07/23 08:59 Last Admin: 10/11/23 10:03 Dose: 10 mg Lorazepam (Lorazepam 0.5 Mg Tab) 0.25 mg PO TID PRN PRN Reason: Anxiety Stop: 11/08/23 03:33 Magnesium Hydroxide (Magnesium Hydroxide Susp 30 Ml Udc) 30 ml PO Q12H PRN PRN Reason: Constipation Stop: 11/06/23 18:46 Melatonin (Melatonin 3 Mg Tab) 3 mg PO HS PRN PRN Reason: Insomnia Stop: 11/06/23 20:43 Last Admin: 10/07/23 22:42 Dose: 3 mg Metoprolol Succinate (Metoprolol Succ 25mg Ext Rel Tab) 25 mg PO QAM [facility] Stop: 11/07/23 08:59 Last Admin: 10/11/23 10:03 Dose: 25 mg Miscellaneous Information (Vancomycin Consult Active) 1 each N/A UD PRN PRN Reason: Consult Stop: 11/06/23 18:34 Multivitamins/Minerals (Cerovite Adv Formula Tab) 1 tab PO QAM [facility] Stop: 11/07/23 08:59 Last Admin: 10/11/23 10:03 Dose: 1 tab Ondansetron HCl (Ondansetron Inj 2 Mg/Ml 2 Ml Vial) 4 mg IV Q6H PRN PRN Reason: Nausea Stop: 11/06/23 18:46 Pantoprazole Sodium (Pantoprazole 40 Mg Tab) [facility] Stop: 11/07/23 08:59 Last Admin: 10/11/23 10:03 Dose: 40 mg Psyllium Hydrophilic Mucilloid (Psyllium Or Guar Gum Fiber 4gm Packet) 4 gm PO BID@1000,1500 [facility] Stop: 11/08/23 10:59 Last Admin: 10/11/23 15:24 Dose: 4 gm Tamsulosin HCl (Tamsulosin Hcl 0.4 Mg Cap) 0.4 mg PO QAM [facility] Stop: 11/07/23 08:59 Last Admin: 10/11/23 10:04 Dose: 0.4 mg Pending Studies at Discharge: Yes Stand-Alone Forms: My [facility] Skilled Items Patient informed of condition?: Yes DNR: Yes Discharge Level of Care: Other Communicable Disease: No Discharge Prognosis: Other Lines: Peripheral IV Urinary Catheter: No Medications and DC Order Prescriptions: Continued atorvastatin [Lipitor] 80 mg tablet 80 mg PO HS levothyroxine [Synthroid] 88 mcg tablet 88 mcg PO QAM loratadine [Claritin] 10 mg Tablet 10 mg PO QAM psyllium Packet 1 packet PO BID Patient Comments: TEASPOON TWICE A DAY Rx Instructions: mix into at least 8 oz of water or juice before administering metoprolol succinate 25 mg Tablet Extended Release 24 Hr 25 mg PO QAM ipratropium bromide 21 mcg (0.03 %) [place],Non-Aerosol 2 spray INTRANASAL BID Rx Instructions: administer into each nostril [id number] Tablet 1 tab PO QAM omega-3 fatty acids Capsule 1,000 mg PO TID omeprazole magnesium [Prilosec OTC] 20 mg Tablet,Delayed Release (Dr/Ec) 20 mg PO QAM Patient Comments: PRESCRIPTION Eliquis 5 mg Tablet 5 mg PO BID melatonin 3 mg Tablet 3 mg PO HS PRN (Reason: Insomnia) acetaminophen [Tylenol Ex Str Rapid Release] 500 mg Tablet 500 mg PO Q6H PRN (Reason: PAIN OR FEVER) metformin 500 mg tablet extended release 24 hr 1,000 mg PO QPM lisinopril 2.5 mg tablet 2.5 mg PO QPM Discharge Orders: Discharge Order (Routine); Ordered 10/11/23 Ordered By: Simon Borja/Other Patient Handouts: Managing Type 2 Diabetes, Diabetes: Meal Planning Admission Data Admit Date/Time: 10/07/23 18:47 Attending Provider: Simon Hodge Admit Provider: Simon Hodge Primary Care Provider: Jocelyn Bro Other Providers: Simon Hodge; Thom Mcdaniel; Rosmery Washington; Romel Casiano I.; Andrea Jones II; Yanet Burroughs; Robbin Simms; Chapin Angela; Jean-Paul Barajas; Juan Tafoya; Arron Cuevas; Davi Kennedy
[2023-10-11 18:43] LABS: Babesia microti DNA Not Detected (Not Detected)
[2023-10-13] MEDS ORDERED: VANCOMYCIN LEVEL ONE (05:30)
[2023-10-13 13:43] LABS: EBV DNA Quant PCR 5516 copies/mL; EBV DNA Quant Source Whole Blood; EBV Nuclear Ag Antibody >600.00 U/mL; Parvovirus IgG 4.2 (<0.9); Parvovirus IgM 0.2 (<0.9)
[2023-10-13 14:08] LABS: Ehrlichia chaff DNA Bld Negative (Negative)
== END 2023-10-11 18:00 | disposition short-term general hospital (02) | DRG 809 ==
LOC: ED 13:27 → EDINP 18:47 → 2E 20:45